=== PATIENT | female | born 1950 | race Caucasian/White ===

== ENCOUNTER → 2016-09-05 | Outpatient (CLI) | payer MEDICARE, OTHER ==
[2016-09-05 07:51] LABS: Basophils % (A) 1 %; CH 31.3; CHCM 31.1; Eosinophils # (A) 0.2 k/uL (0-0.7); Eosinophils % (A) 3 %; HCT 38.7 % (34.0-46.0); HDW 2.49; HGB 12.1 gm/dL (11.4-16.0); Hypochromasia Slight; Luc # (Auto) 0.19; Luc % (Auto) 4; Lymphocytes # (A) 2.4 k/uL (1.0-4.8); Lymphocytes % (A) 45 %; MCH 31.7 pg (25.0-35.0); MCHC 31.4 g/dL (31.0-37.0); MCV 101.2 fL (80.0-100.0); Macrocytosis Slight; Mean Platelet Volume 7.1; Monocytes # (A) 0.4 k/uL (0-1.0); Monocytes % (A) 8 %; Neutrophils # (A) 2.2 k/uL (1.3-7.7); Neutrophils % (A) 40 %; RBC 3.83 m/uL (3.80-5.40); RDW 13.4 % (11.5-15.5); WBC 5.4 k/uL (3.8-10.6)
[2016-09-05 08:05] LABS: Potassium 4.7 mmol/L (3.5-5.1)
== END | disposition home or self-care (01) ==
LOC: LABPAT 07:05
PROVIDERS: ATTEND Orthopaedic Surgery
DX: Z01.818 Encounter for other preprocedural examination (principal)
CPT/HCPCS: 36415; 80051; 85025

== ENCOUNTER 2016-10-02 06:22 | Day surgery (SDC) | payer MEDICARE, OTHER ==
[2016-09-03 10:19] VITALS: BMI 49.6
--- NOTE | 2016-09-07 15:09 | HP ---
DATE OF ADMISSION: CHIEF COMPLAINT: Right shoulder pain. HISTORY OF PRESENT ILLNESS: The patient is a 66-year-old, right-hand dominant female who presents with progressive right shoulder pain for the past 5 months. She is having pain with overhead use and at night. She has tried therapy along with injections with only partial temporary relief. She has also tried medications. She notes it does limit her. PAST MEDICAL HISTORY: Significant for asthma, heart disease, diabetes and arthritis. PAST SURGICAL HISTORY: Significant for lap banding, coronary artery bypass grafting, previous total knee arthroplasty along with cholecystectomy. CURRENT MEDICATIONS: 1. Advair. 2. Zocor. 3. Aspirin. 4. Lisinopril. 5. [place]. She has allergies to ZYLOPRIM and KEFLEX. FAMILY HISTORY: Significant for cancer. SOCIAL HISTORY: Negative for current tobacco or alcohol use. A 16-point review of systems reviewed and is otherwise noncontributory. On examination, the patient is approximately 5 foot 3, 293 pounds of endomorphic habitus. HEENT exam is nonfocal. Neck is supple. On examination of her right shoulder, she is tender about the anterior subacromial space. She has moderate subacromial crepitus. Active range of motion, forward elevation 150 degrees, external rotation with arm at side 65 degrees, internal rotation to L2. Motor strength is 5-/5 for abduction and external rotation. Lainez, Neer and speed tests are positive. Her distal neurovascular exam otherwise appears intact in the right upper extremity. MRI report for the right shoulder from 07/17/2016 shows a retracted tear involving the supraspinatus tendon along with a superior labral tear and biceps tendinosis. IMPRESSION: 1. Right shoulder symptomatic rotator cuff tear. 2. Right shoulder superior labral tear/biceps tendinosis. 3. Increased body mass index. RECOMMENDATIONS: I talked to the patient at length regarding her treatment options. At this point, she is quite symptomatic despite conservative measures. After thorough discussion, she opts to proceed with surgery. We will plan to proceed with arthroscopic evaluation with probable subacromial decompression, rotator cuff repair, and possible biceps tenotomy. Risks and benefits are discussed at length in layman's terms. We will likely perform that as an outpatient procedure. The patient underwent preoperative medical evaluation by Dr. Curtis.
[~2016-10-02 06:22] MED LIST: DEXAMETHASONE SOD PHOSPHATE 10 MG/ML 1 ML VIAL IV ONE; HYDROmorphone 1 MG/ML 1 ML SYRINGE IVP PRN; LACTATED RINGERS 1,000 ML IV SCH; MIDAZOLAM 2 MG/2 ML VIAL IV PRN; ONDANSETRON 4 MG/2 ML VIAL IVP ONE; Pre Op ABX Message 1 EACH MISC MISCELLANE ONE; SCOPOLAMINE 1.5MG/72HR PATCH TRANSDERM ONE
[2016-10-02] MEDS ORDERED: LACTATED RINGERS 1,000 ML IV SCH (06:40)
[2016-10-02] MEDS ORDERED: HYDROmorphone 1 MG/ML 1 ML SYRINGE IVP PRN (06:40)
[2016-10-02] MEDS ORDERED: ONDANSETRON 4 MG/2 ML VIAL IVP PRN (06:40)
[2016-10-02] MEDS ORDERED: LIDOCAINE 1% 20 ML VIAL (10MG/ML) FOR IV START INTRADERMA PRN (06:40)
[2016-10-02] MEDS ORDERED: FAMOTIDINE 20 MG/2 ML VIAL IV PRN (06:40)
[2016-10-02 06:54] LABS: Glucose,Whole Blood 109 mg/dL (75-99)
[2016-10-02] MEDS ORDERED: MIDAZOLAM 2 MG/2 ML VIAL IV ONE (07:28)
[2016-10-02] MEDS ORDERED: LIDOCAINE 1% INJ 10MG/ML (20 ML MDV) ONE (08:02)
[2016-10-02] MEDS ORDERED: PHENYLEPHRINE-0.9% NACL SYG 1 MG/10 ML SYRINGE ONE (08:02)
[2016-10-02] MEDS ORDERED: PROPOFOL 10 MG/ML 20 ML VIAL IV ONE (08:02)
[2016-10-02] MEDS ORDERED: CLINDAMYCIN 150 MG/ML 6 ML VIAL ONE (08:02)
[2016-10-02] MEDS ORDERED: fentaNYL (PF) 50 MCG/ML 2 ML AMP ONE (08:02)
[2016-10-02] MEDS ORDERED: ROPIVACAINE 5 MG/ML 30 ML VIAL ONE (08:02)
[2016-10-02] MEDS ORDERED: SUCCINYLCHOLINE CHLORIDE VIAL 200 MG/10 ML VIAL IV ONE (08:02)
[2016-10-02] MEDS ORDERED: LIDOCAINE 2%-EPI 1:100,000 20 ML VIAL ONE (08:02)
[2016-10-02] MEDS ORDERED: EPINEPHrine (PF) 1 ML in SODIUM CHLORIDE 0.9% IRRIGATIO 3,000 ML IRRIGATION ONE ×8 (08:30)
[2016-10-02 09:57] VITALS: TEMP 97.1
--- NOTE | 2016-10-02 10:06 | P.OP ---
Date of Procedure: 10/02/16 Preoperative Diagnosis: Right shoulder symptomatic rotator cuff tear Postoperative Diagnosis: 5 cm rotator cuff tear right shoulder/high-grade partial-thickness tear long head of the biceps/superior labral tear Procedure(s) Performed: Right shoulder arthroscopic subacromial decompression/biceps tenotomy/rotator cuff repair/superior labral debridement Implants: Arthrex 6.5 mm swivel lock anchor times one, 5.5 mm swivel lock anchor 1, 4.5 mm swivel anchor 2 Anesthesia: NHIA, regional Surgeon: Rohit Jesus Clinical Investigator #1: Rober Calabrese Estimated Blood Loss (ml): 20 Pathology: none sent Condition: stable Disposition: PACU Indications for Procedure: The patient's a 66-year-old female who presents with progressive right shoulder pain after previous injury despite extensive conservative treatment. A discussion of the risks and benefits of operative intervention versus continued conservative measures was made with patient. She opted to proceed with surgery. Operative risks to include infection, neurovascular injury, development of blood clots, possible tendon rerupture, possible need for subsequent procedures was discussed. Informed consent was obtained. Operative Findings: As below. Description of Procedure: The patient was brought to the operating room, and after induction of general anesthesia was placed in the beachchair position. The bony prominences were appropriately padded. I examined the right shoulder. There is no gross block to passive motion. The right upper extremity was prepped and draped in normal fashion. The bony outlines the acromion, distal clavicle, and coracoid process were outlined with a skin marker. The glenoid joint was inflated with 50 mL of saline utilizing a spinal needle from posterior approach. A posterior portal was made through a 5 mm skin incision 1 cm medial and inferior to the posterior lateral border of the acromion. A blunt trocar was used to easily into the joint. Diagnostic arthroscopy was performed. An anterior portal was made just lateral to the coracoid process entering the joint above the subscapularis tendon. The subscapularis tendon appear to be intact. Anterior labrum was intact. There was a large retracted rotator cuff tear involving the supraspinatus and infraspinatus with retraction just lateral to the glenoid margin. The long head of the biceps showed significant fraying and a high- grade partial-thickness tear involving the intra-articular portion. Was elected to proceed with tenotomy at this point. It was released from the superior labrum and allowed to retract into the bicipital groove. A tear involving the superior labrum was also noted. This was debrided back to stable base with a motorized shaver. The posterior labrum appeared to be intact. Mild to moderate degenerative changes involving glenohumeral joint were noted. The arthroscope was placed into the subacromial space. A lateral portal was made through a 5 mm skin incision 2 cm inferior to the anterior lateral border of the acromion. The soft tissue on the undersurface the acromion was debrided with a motorized shaver and with electrocautery clearly defining the anterior medial and lateral borders. An anterior inferior acromioplasty is performed with a motorized tracy starting anterolateral, then extending this posteriorly, then extending this medially. I was able to convert to a flat acromion. This was verified from the posterior and lateral viewing portals. Attention was then paid towards the rotator cuff. The tissue was mobilized back to the greater tuberosity. A traction suture was placed. The greater tuberosity was lightly decorticated utilizing a motorized tracy. An accessory superior lateral portals made through a 4 mm skin incision just off the lateral edge of the acromion for anchor placement. 2 anchors was then placed just off the articular surface the appropriate starting awl. The fiber tape was then passed through the rotator cuff utilizing a scorpion suture passer. A lateral row was created crisscrossing the sutures. I had to place a 6.5 mm swivel lock anchor anteriorly as the bone quality did not allow for secure placement of the 5.5 mm anchor. A 5.5 mm anchor was placed posteriorly. Final arthroscopic view showed adequate muslim of the majority of the rotator cuff to the greater tuberosity. The portals were closed with simple 3-0 nylon suture. A sterile dressing was applied in addition to an abductor brace. The patient was awoken from general anesthesia and transferred to recovery room in good condition. Blood loss was estimated 20 mL. No complications were incurred. Sponge and needle counts were correct at the end of the case
[2016-10-02 10:13] LABS: Glucose,Whole Blood 162 mg/dL (75-99)
[2016-10-02] MEDS ORDERED: LACTATED RINGERS 1,000 ML IV ONE (10:33)
[2016-10-02 11:23] VITALS: RESP 20
[2016-10-02 12:11] VITALS: BP 162/77; PULSE 50
== END 2016-10-02 12:14 | disposition home or self-care (01) ==
LOC: OR 06:22
PROVIDERS: ATTEND Orthopaedic Surgery
DX: M75.101 Unspecified rotator cuff tear or rupture of right shoulder, not specified as traumatic (principal); S46.111A Strain of muscle, fascia and tendon of long head of biceps, right arm, initial encounter; X58.XXXA Exposure to other specified factors, initial encounter; I25.10 Atherosclerotic heart disease of native coronary artery without angina pectoris; I10 Essential (primary) hypertension; E78.5 Hyperlipidemia, unspecified; J45.909 Unspecified asthma, uncomplicated; E11.9 Type 2 diabetes mellitus without complications; Z79.84 Long term (current) use of oral hypoglycemic drugs; E07.9 Disorder of thyroid, unspecified; E66.01 Morbid (severe) obesity due to excess calories; Z68.42 Body mass index [BMI] 45.0-49.9, adult; Z95.1 Presence of aortocoronary bypass graft; Z79.899 Other long term (current) drug therapy; Z88.1 Allergy status to other antibiotic agents; Z88.8 Allergy status to other drugs, medicaments and biological substances
CPT/HCPCS: 64415; 29826; 29827; C1713 ×4; J2250; J0330; J2405; J0171; J2001; J3010; J2795; J2370; J2704

== ENCOUNTER 2016-10-14 19:29 | Emergency (ER) | payer MEDICARE, OTHER ==
[2016-10-14] MEDS ORDERED: HYDROmorphone 1 MG/ML 1 ML SYRINGE IM STA (20:24)
--- NOTE | 2016-10-14 20:26 | ED ---
General Adult HPI - General Chief complaint: Extremity Injury, Upper Stated complaint: post op shoulder surgery pain 10/02/16 Time Seen by Provider: 10/14/16 20:13 Source: patient, RN notes reviewed Mode of arrival: ambulatory Limitations: no limitations - History of Present Illness Initial comments: Is a 66-year-old female presents with right shoulder pain after shoulder surgery on 10/02/2016. Patient states she ran out of her pain medications today that were prescribed by her surgeon. Patient states she called her surgeon, Dr. Barrera, who told her to come to the ER for a shot of pain medication and he will refill her pain medication prescription tomorrow. Patient has only taken Tylenol today for the pain. Patient denies any new injury to the right shoulder. Patient denies any numbness/weakness or tingling. Patient denies any recent fever, chills, shortness breath, chest pain , abdominal pain, nausea/vomiting/diarrhea, back pain, hematuria, headache, or visual changes, or any other complaints. - Related Data Home Medications Medication Instructions Recorded Confirmed Albuterol Sulfate [Proair Hfa] 1 puff INHALATION BID PRN 03/21/14 10/14/16 Carvedilol [Coreg] 3.125 mg PO BID 03/21/14 10/14/16 Fluticasone/Salmeterol [Advair 1 puff INHALATION BID PRN 03/21/14 10/14/16 250-50 Diskus] Lisinopril [Zestril] 5 mg PO HS 03/21/14 10/14/16 Simvastatin [Zocor] 80 mg PO HS 03/21/14 10/14/16 Zafirlukast [Accolate] 20 mg PO BID 03/21/14 10/14/16 Ergocalciferol [Vitamin D2 50,000 unit PO QMONTH 10/09/14 10/14/16 (DRISDOL)] Levothyroxine Sodium [Synthroid] 150 mcg PO DAILY 10/09/14 10/14/16 Aspirin 81 mg PO DAILY 08/06/15 10/14/16 Glimepiride [Amaryl] 1 mg PO AC-BRKFST 10/08/15 10/14/16 Diphenoxylate HCl/Atropine 2 tab PO QID PRN 03/30/16 10/14/16 [Lomotil] HYDROcodone/APAP 7.5-325MG [[place] 1 - 2 each PO QID PRN 09/03/16 10/14/16 7.5-325] Previous Rx's Medication Instructions Recorded Meclizine [Antivert] 25 mg PO QID PRN #0 tab 12/07/14 traMADol HCl [Ultram] 50 mg PO Q6H PRN #40 tab 10/02/16 Allergies Allergy/AdvReac Type Severity Reaction Status Date / Time allopurinol Allergy Itching Verified 10/14/16 20:31 cephalexin monohydrate Allergy Itching Verified 10/14/16 20:31 [From Keflex] clindamycin Allergy Itching Verified 10/14/16 20:31 NSAIDS (Non-Steroidal AdvReac Unknown STATES NO Verified 10/14/16 20:31 Anti-Inflamma NSAIDS DUE TO GASTRIC BYPASS Review of Systems ROS Statement: Those systems with pertinent positive or pertinent negative responses have been documented in the HPI. ROS Other: All systems not noted in ROS Statement are negative. Past Medical History Past Medical History: Asthma, Diabetes Mellitus, Hearing Disorder / Deafness, Hyperlipidemia, Hypertension, Musculoskeletal Disorder, Osteoarthritis (OA), Skin Disorder, Sleep Apnea/CPAP/BIPAP, Thyroid Disorder Additional Past Medical History / Comment(s): VERTIGO, PSORIASIS, HAS C-PAP BUT CURRENTLY NOT USING DUE TO EAR SURGERY., , , USES CANE OR WALKER PRN. , STATES RIGHT EAR SURGERY 08/18/16., DIFFICULTY HEARING KRISTOPHER. History of Any Multi-Drug Resistant Organisms: None Reported Past Surgical History: Bariatric Surgery, Cholecystectomy, Coronary Bypass/CABG , Heart Catheterization, Hernia Repair, Joint Replacement, Orthopedic Surgery, Tubal Ligation Additional Past Surgical History / Comment(s): KNEE ARTHROSCOPY,CABG (1992), LAP BAND AND REMOVAL. GASTRIC BYPASS 2012, UMBILICAL HERNIA REPAIR, LEFT SHOULDER SURG, KRISTOPHER CARPAL TUNNEL. KRISTOPHER EAR SURG WITH TUBES, TOTAL LEFT KNEE, RIGHT EAR SURG (08/18/16) Past Anesthesia/Blood Transfusion Reactions: Motion Sickness Additional Past Anesthesia/Blood Transfusion Reaction / Comment(s): VERTIGO Past Psychological History: No Psychological Hx Reported Smoking Status: Former smoker Past Alcohol Use History: None Reported Additional Past Alcohol Use History / Comment(s): quit smoking 1992, smoked 1 PPD x 22 yrs. Past Drug Use History: None Reported - Past Family History Sister(s) Family Medical History: Cancer Additional Family Medical History / Comment(s): LUNG CA General Exam - General Exam Comments Initial Comments: General: The patient is awake and alert, in no distress, and does not appear acutely ill. Neck: The neck is supple, there is no tenderness or JVD. Cardiovascular: There is a regular rate and rhythm. No murmur, rub or gallop is appreciated. Respiratory: Lungs are clear to auscultation, respirations are non-labored, breath sounds are equal. No wheezes, stridor, rales, or rhonchi. Musculoskeletal: Patient has her right arm in a brace with surgical sutures in place. No sign of joint effusion. Faint ecchymosis to the anterior shoulder. Sensation intact. Radial pulses are 2+ bilaterally. Capillary refill is normal at less than 2 seconds. Neurological: A&O x 3. CN II-XII intact, There are no obvious motor or sensory deficits. Coordination appears grossly intact. Speech is normal. Skin: Skin is warm and dry and no rashes or lesions are noted. Psychiatric: Normal mood and affect. Limitations: no limitations Course Vital Signs 10/14/16 19:56 Temperature 97.9 F Pulse Rate 89 Respiratory 20 Rate Blood Pressure 117/61 O2 Sat by Pulse 96 Oximetry Medical Decision Making - Medical Decision Making This is a 66-year-old female presents with shoulder pain after running out of her pain medications. Patient had shoulder surgery on 10/02/2016. On physical exam Patient has her right arm in a brace with surgical sutures in place. No sign of joint effusion. Faint ecchymosis to the anterior shoulder. Sensation intact. Radial pulses are 2+ bilaterally. Capillary refill is normal at less than 2 seconds. Patient was told directly by her doctor who she called today to come in to the EC for pain shot and he will refill her pain medication prescription tomorrow. Patient was given a shot of Dilaudid in the EC today. I discussed return parameters. Discussed that patient should follow up with PCP in one to 2 days or return to the [facility] for any worsening symptoms or for any further concerns. Patient was receptive to this plan and patient will be discharged home. Disposition Clinical Impression: Shoulder pain, right, History of repair of rotator cuff Disposition: HOME SELF-CARE Condition: Good Instructions: Shoulder Pain (ED) Additional Instructions: Please follow-up with your surgeon tomorrow. Please follow-up with family doctor in the next 2 days of symptoms have not improved. Please return to emergency room if the symptoms increase or worsen or for any other concerns. Referrals: Teofilo Curtis MD [Primary Care Provider] - 1-2 days Time of Disposition: 20:30
[2016-10-14 20:54] VITALS: BP 139/79; PULSE 92; RESP 18; TEMP 98.4
== END 2016-10-14 20:54 | disposition home or self-care (01) ==
LOC: EC 19:29
DX: M25.511 Pain in right shoulder (principal); G89.18 Other acute postprocedural pain; J45.909 Unspecified asthma, uncomplicated; E11.9 Type 2 diabetes mellitus without complications; H91.90 Unspecified hearing loss, unspecified ear; E78.5 Hyperlipidemia, unspecified; I10 Essential (primary) hypertension; M19.90 Unspecified osteoarthritis, unspecified site; E07.9 Disorder of thyroid, unspecified; G47.30 Sleep apnea, unspecified; Z87.891 Personal history of nicotine dependence; Z79.82 Long term (current) use of aspirin; Z79.52 Long term (current) use of systemic steroids; Z79.899 Other long term (current) drug therapy; Z88.1 Allergy status to other antibiotic agents; Z88.6 Allergy status to analgesic agent; Z88.8 Allergy status to other drugs, medicaments and biological substances
CPT/HCPCS: 99283; 96372; J1170

== ENCOUNTER 2017-01-13 06:38 | Day surgery (SDC) | payer MEDICARE, OTHER ==
[2016-12-18 08:43] VITALS: BMI 46.4
[~2017-01-13 06:38] MED LIST changes: -DEXAMETHASONE SOD PHOSPHATE 10 MG/ML 1 ML VIAL IV ONE; -HYDROmorphone 1 MG/ML 1 ML SYRINGE IVP PRN; +LIDOCAINE 1% 20 ML VIAL (10MG/ML) FOR IV START INTRADERMA PRN; -MIDAZOLAM 2 MG/2 ML VIAL IV PRN; -ONDANSETRON 4 MG/2 ML VIAL IVP ONE; -Pre Op ABX Message 1 EACH MISC MISCELLANE ONE; -SCOPOLAMINE 1.5MG/72HR PATCH TRANSDERM ONE
[2017-01-13 07:03] VITALS: TEMP 97.1
[2017-01-13 07:21] LABS: Glucose,Whole Blood 118 mg/dL (75-99)
[2017-01-13] MEDS ORDERED: PROPOFOL 10 MG/ML 20 ML VIAL IV ONE (07:43)
[2017-01-13] MEDS ORDERED: GLUCAGON 1 MG/ML VIAL ONE (07:43)
[2017-01-13] MEDS ORDERED: LIDOCAINE 1% INJ 10MG/ML (20 ML MDV) ONE (07:43)
--- NOTE | 2017-01-13 07:48 | P.GSHP ---
History of Present Illness H&P Date: 01/13/17 Chief Complaint: Screening colonoscopy This is a 66-year-old female who presents today for colonoscopy. Patient had her last colonoscopy proximal to 5 years ago. Patient had benign adenomatous polyps at that time. - Constitutional Constitutional: Reports as per HPI Past Medical History Past Medical History: Asthma, Diabetes Mellitus, Hearing Disorder / Deafness, Hyperlipidemia, Hypertension, Musculoskeletal Disorder, Osteoarthritis (OA), Skin Disorder, Sleep Apnea/CPAP/BIPAP, Thyroid Disorder Additional Past Medical History / Comment(s): VERTIGO, PSORIASIS, HAS C-PAP BUT CURRENTLY NOT USING DUE TO EAR SURGERY, USES CANE OR WALKER PRN., occult stool test positive History of Any Multi-Drug Resistant Organisms: None Reported Past Surgical History: Bariatric Surgery, Cholecystectomy, Coronary Bypass/CABG , Heart Catheterization, Hernia Repair, Joint Replacement, Orthopedic Surgery, Tubal Ligation Additional Past Surgical History / Comment(s): KNEE ARTHROSCOPY,CABG (1992), LAP BAND AND REMOVAL. GASTRIC BYPASS 2012, UMBILICAL HERNIA REPAIR, KRISTOPHER. SHOULDER SURG, KRISTOPHER CARPAL TUNNEL. KRISTOPHER EAR SURG WITH TUBES, TOTAL LEFT KNEE, RIGHT EAR SURG Past Anesthesia/Blood Transfusion Reactions: Motion Sickness Additional Past Anesthesia/Blood Transfusion Reaction / Comment(s): VERTIGO Past Psychological History: No Psychological Hx Reported Smoking Status: Former smoker Past Alcohol Use History: None Reported Additional Past Alcohol Use History / Comment(s): quit smoking 1992, smoked 1 PPD x 22 yrs. Past Drug Use History: None Reported - Past Family History Sister(s) Family Medical History: Cancer Additional Family Medical History / Comment(s): LUNG CA Medications and Allergies Home Medications Medication Instructions Recorded Confirmed Type Carvedilol [Coreg] 3.125 mg PO BID 03/21/14 01/13/17 History Fluticasone/Salmeterol [Advair 1 puff INHALATION RT-BID PRN 03/21/14 01/13/17 History 250-50 Diskus] Lisinopril [Zestril] 5 mg PO HS 03/21/14 01/13/17 History Simvastatin [Zocor] 80 mg PO HS 03/21/14 01/13/17 History Zafirlukast [Accolate] 20 mg PO BID 03/21/14 01/13/17 History Ergocalciferol [Vitamin D2 50,000 unit PO QMONTH 10/09/14 01/13/17 History (DRISDOL)] Levothyroxine Sodium [Synthroid] 150 mcg PO DAILY 10/09/14 01/13/17 History Aspirin 81 mg PO DAILY 08/06/15 01/13/17 History Glimepiride [Amaryl] 1 mg PO AC-BRKFST 10/08/15 01/13/17 History Diphenoxylate HCl/Atropine 2 tab PO QID PRN 03/30/16 01/13/17 History [Lomotil] HYDROcodone/APAP 7.5-325MG [[place] 1 - 2 tab PO QID PRN 09/03/16 01/13/17 History 7.5-325] Calcium Carbonate [Calcium] 600 mg PO DAILY 01/07/17 01/13/17 History Cyanocobalamin (Vitamin B-12) 1,000 mcg PO MOWEFR 01/07/17 01/13/17 History [Vitamin B-12] Allergies Allergy/AdvReac Type Severity Reaction Status Date / Time allopurinol Allergy Itching Verified 01/07/17 14:43 cephalexin monohydrate Allergy Itching Verified 01/07/17 14:43 [From Keflex] clindamycin Allergy Itching Verified 01/07/17 14:43 NSAIDS (Non-Steroidal AdvReac Unknown STATES NO Verified 01/07/17 14:43 Anti-Inflamma NSAIDS DUE TO GASTRIC BYPASS Surgical - Exam Vital Signs Temp Pulse Resp BP Pulse Ox 97.1 F L 72 14 147/82 96 01/13/17 07:01 01/13/17 07:01 01/13/17 07:01 01/13/17 07:01 01/13/17 07:01 - General well developed, no distress - Eyes PERRL - ENT normal pinna - Neck no masses - Respiratory normal expansion - Cardiovascular Rhythm: regular - Abdomen Abdomen: soft, non tender Results - Labs Abnormal Lab Results - Last 24 Hours (Table) 01/13/17 Range/Units 07:16 POC Glucose (mg/dL) 118 H (75-99) mg/dL Assessment and Plan Plan: History of colon polyps. We'll perform colonoscopy.
--- NOTE | 2017-01-13 08:22 | P.OP ---
Date of Procedure: 01/13/17 Preoperative Diagnosis: Colon polyps Postoperative Diagnosis: Diverticulosis Left colon polyp Procedure(s) Performed: colonoscopy Implants: Anesthesia: MAC Surgeon: Mannie Tanner Pathology: other (Left colon polyp) Condition: stable Disposition: PACU Indications for Procedure: Operative Findings: Description of Procedure: The patient's placed on the endoscopy table in the lateral position. She received IV sedation. Digital rectal exam was performed which revealed external hemorrhoids. The flexible colonoscope was then placed patient anus passed throughout the entire colon. The ileocecal valve was visualized. The cecum, ascending and transverse colon appeared normal. The descending colon there is diverticular changes. There is also a polyp seen in the left colon was removed the forcep. Scope summer back and the sigmoid colon there is more extensive diverticular changes seen. Scope was then brought back into the rectum and this appeared normal. Scope was withdrawn for patient.
[2017-01-13 08:53] VITALS: BP 127/64; PULSE 64; RESP 20
== END 2017-01-13 09:00 | disposition home or self-care (01) ==
LOC: ORWHC2ENDO 06:38
PROVIDERS: ATTEND Surgery
DX: Z12.11 Encounter for screening for malignant neoplasm of colon (principal); K63.5 Polyp of colon; K57.30 Diverticulosis of large intestine without perforation or abscess without bleeding; Z86.010 Personal history of colon polyps; Z98.84 Bariatric surgery status; Z87.891 Personal history of nicotine dependence; E11.9 Type 2 diabetes mellitus without complications; Z79.84 Long term (current) use of oral hypoglycemic drugs; Z95.1 Presence of aortocoronary bypass graft; I10 Essential (primary) hypertension; E78.5 Hyperlipidemia, unspecified; J45.909 Unspecified asthma, uncomplicated; G47.30 Sleep apnea, unspecified; E07.9 Disorder of thyroid, unspecified; M19.90 Unspecified osteoarthritis, unspecified site; Z79.82 Long term (current) use of aspirin; Z79.899 Other long term (current) drug therapy; Z88.1 Allergy status to other antibiotic agents; Z88.8 Allergy status to other drugs, medicaments and biological substances
CPT/HCPCS: 88305; 45380; J1610; J2001; J2704

== ENCOUNTER → 2017-07-12 | Outpatient (CLI) | payer MEDICARE, OTHER ==
--- NOTE | 2017-07-12 19:48 | MR ---
EXAMINATION TYPE: MR shoulder RT wo con DATE OF EXAM: 07/12/2017 COMPARISON: NONE HISTORY: Pain in right shoulder TECHNIQUE: Multiplanar, multisequence imaging of the right shoulder is performed without contrast. FINDINGS: Rotator Cuff: There is evidence suggestive of previous surgery. There is a complete through thickness tear of the supraspinatus tendon with retraction the level of the AC joint. Subscapularis tendon appears to be intact. Intrasubstance type signal at the insertion suggests parti al intrasubstance tear but no retraction or full-thickness tear. Infraspinatus tendon demonstrates near complete through thickness partial tear. Note is made there is atrophy of the supraspinatus and infraspinatus muscles with the most marked clarisse nges seen involving the supraspinatus muscle which demonstrates significant atrophic changes. Acromioclavicular Joint: Arthropathy noted with severe narrowing. Glenohumeral Joint: There is a small joint effusion. Inferior glenohumeral ligament intact. There is considerable narrowing of the joint space with mild hypertrophic changes of the humeral head compatib le significant arthritic changes. Labrum: Labral assessment is limited due to motion artifact but grossly appear intact. Biceps Tendon: The long head of biceps is in normal location within bicipital groove. However, there is lack of visualization of the intracapsular portion of the biceps tendon. This is suspicious for in tracapsular tear. Bone marrow signal: No focal abnormal marrow signal is appreciated. IMPRESSION: 1. Complete through thickness tear of the supraspinatus tendon retraction to the proximal level of th e AC joint. Significant muscular atrophy noted. 2. Partial through thickness tear infraspinatus tendon with no definite retraction. Muscular atrophy noted. 3. Joint effusion with findings suggestive of arthritic changes involving the glenohumeral joint. 4. Impingement secondary to hypertrophic change of the AC joint 5. Subscapularis intrasubstance partial tear at its insertion. 6. Nonvisualization of the intracapsular portion of the biceps tendon. This is suspicious for biceps tendon tear.
== END | disposition home or self-care (01) ==
LOC: RADMRIMAIN 10:07
PROVIDERS: ATTEND Orthopaedic Surgery
DX: M75.121 Complete rotator cuff tear or rupture of right shoulder, not specified as traumatic (principal); M25.811 Other specified joint disorders, right shoulder; M25.411 Effusion, right shoulder

== ENCOUNTER → 2017-08-19 | Outpatient (CLI) | payer MEDICARE, OTHER ==
[2017-08-19 11:21] LABS: Basophils % (A) 1 %; Eosinophils # (A) 0.2 k/uL (0-0.7); Eosinophils % (A) 4 %; HCT 41.1 % (34.0-46.0); HGB 12.6 gm/dL (11.4-16.0); Lymphocytes # (A) 1.6 k/uL (1.0-4.8); Lymphocytes % (A) 27 %; MCH 31.4 pg (25.0-35.0); MCHC 30.6 g/dL (31.0-37.0); MCV 102.7 fL (80.0-100.0); Macrocytosis Slight; Mean Platelet Volume 7.3; Monocytes # (A) 0.5 k/uL (0-1.0); Monocytes % (A) 8 %; Neutrophils # (A) 3.3 k/uL (1.3-7.7); Neutrophils % (A) 58 %; Platelet Count 294 k/uL (150-450); RDW 14.2 % (11.5-15.5); WBC 5.8 k/uL (3.8-10.6)
[2017-08-19 11:34] LABS: Partial Thromboplastin Time 22.7 sec (22.0-30.0); Prothrombin Time 9.7 sec (9.0-12.0)
== END ==
LOC: LABPAT 10:53
PROVIDERS: ATTEND Orthopaedic Surgery
DX: Z01.818 Encounter for other preprocedural examination (principal); M12.811 Other specific arthropathies, not elsewhere classified, right shoulder
CPT/HCPCS: 36415; 80051; 85025; 85610; 85730

== ENCOUNTER 2017-08-24 10:41 | Inpatient (IN) | payer MEDICARE, OTHER ==
[2017-08-13 11:32] VITALS: BMI 46.4
--- NOTE | 2017-08-23 13:46 | HP ---
HISTORY AND PHYSICAL CHIEF COMPLAINT: Right shoulder pain. 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 It has worsened recently. She had a rotator cuff repair performed in September of 2016. She notes increasing pain with overhead use and at night. She notes she is severely limited because of pain at this point. PAST MEDICAL HISTORY: Significant for type 2 diabetes, coronary artery disease, arthritis, hyperlipidemia, and asthma. PAST SURGICAL HISTORY: Significant for lap banding, total knee arthroplasty, gallbladder removal, previous right arthroscopic rotator cuff repair. In addition to previous coronary artery bypass grafting. CURRENT MEDICATIONS: Advair, Zocor, aspirin, lisinopril, glimepiride, levothyroxine and meclizine along with [place]. ALLERGIES: ALLERGIES TO KEFLEX AND ZYLOPRIM. FAMILY HISTORY: Significant for cancer. SOCIAL HISTORY: Negative for current tobacco or alcohol use. REVIEW OF SYSTEMS: Sixteen point review of systems otherwise reviewed and is noncontributory. PHYSICAL EXAMINATION: On examination, the patient is approximately 5 foot 3, 262 pounds of endomorphic habitus. HEENT exam is nonfocal. Neck is supple. On examination of her right shoulder, active range of motion, forward elevation 130 degrees, external rotation with arm at side 30 degrees. Internal rotation is to L1. Motor strength is 4- over 5 for external rotation and abduction. Lainez, Neer tests are positive. Her distal neurovascular exam otherwise appears intact in the right upper extremity. MRI report from 07/12/2017 of the right shoulder shows a re-tear of the supraspinatus tendon and infraspinatus with significant retraction. Rotator cuff arthropathy is present. IMPRESSION: 1. Right rotator cuff arthropathy. 2. Increased body mass index. 3. History of coronary artery disease status post bypass grafting. 4. [id number] diabetes. RECOMMENDATIONS: I talked to the patient at length regarding her condition and treatment options. At this point, she is quite symptomatic despite conservative measures. After thorough discussion, she opts to proceed with surgery. We will plan to proceed with right reverse total shoulder arthroplasty. Risks and benefits were discussed at length in layman's terms. MMODL / IJN: [id number] /
[~2017-08-24 10:41] MED LIST changes: +ACETAMINOPHEN TAB 500 MG TAB PO ONE; +DEXAMETHASONE SOD PHOSPHATE 10 MG/ML 1 ML VIAL IV ONE; -LACTATED RINGERS 1,000 ML IV SCH; +MELOXICAM 7.5 MG TAB PO ONE; +ONDANSETRON 4 MG/2 ML VIAL IVP ONE; +SCOPOLAMINE 1.5MG/72HR PATCH TRANSDERM ONE; +TRANEXAMIC ACID 1,000 MG in SODIUM CHLORIDE 0.9% 50 ML IVPB ONE; +ceFAZolin IN SWFI 2 GM/20 ML SYRINGE IVP ONE
[2017-08-24] MEDS: LACTATED RINGERS 1,000 ML IV SCH (11:47)
[2017-08-24 11:51] LABS: Glucose,Whole Blood 110 mg/dL (75-99)
[2017-08-24] MEDS: MIDAZOLAM 2 MG/2 ML VIAL IV PRN ×2 (12:08→12:14)
[2017-08-24] MEDS ORDERED: ROPIVACAINE 5 MG/ML 30 ML VIAL ONE (13:40)
[2017-08-24] MEDS ORDERED: LIDOCAINE 1% INJ 10MG/ML (20 ML MDV) ONE (13:40)
[2017-08-24] MEDS ORDERED: PHENYLEPHRINE-0.9% NACL SYG 1 MG/10 ML SYRINGE ONE (13:40)
[2017-08-24] MEDS ORDERED: MIDAZOLAM 2 MG/2 ML VIAL ONE (13:40)
[2017-08-24] MEDS ORDERED: PROPOFOL 10 MG/ML 20 ML VIAL IV ONE (13:40)
[2017-08-24] MEDS ORDERED: GLYCOPYRROLATE 0.2 MG/ML 2 ML VIAL ONE (13:40)
[2017-08-24] MEDS ORDERED: LIDOCAINE 2%-EPI 1:100,000 20 ML VIAL ONE (13:40)
[2017-08-24] MEDS ORDERED: SUCCINYLCHOLINE CHLORIDE 100 MG/5 ML SYR IV ONE (13:40)
[2017-08-24] MEDS ORDERED: ePHEDrine SULFATE/0.9% NACL/PF 50 MG/5 ML SYRINGE IV ONE (13:40)
[2017-08-24] MEDS ORDERED: ceFAZolin 1,000 MG in SODIUM CHLORIDE 0.9% 1,000 ML IRRIGATION ONE (14:26)
[2017-08-24] MEDS ORDERED: LACTATED RINGERS 1,000 ML IV ONE (15:12)
[2017-08-24] MEDS ORDERED: HYDROmorphone 2 MG/ML 1 ML SYRINGE IVP PRN ×2 (15:48)
[2017-08-24] MEDS ORDERED: ONDANSETRON 4 MG/2 ML VIAL IVP PRN (15:48)
[2017-08-24] MEDS ORDERED: SENNOSIDES-DOCUSATE SODIUM 1 EACH TAB PO PRN (15:48)
[2017-08-24] MEDS ORDERED: HYDROcodone/APAP 7.5-325MG 1 EACH TAB PO PRN (15:50)
--- NOTE | 2017-08-24 16:16 | P.OP ---
Date of Procedure: 08/24/17 Preoperative Diagnosis: Right shoulder rotator cuff arthropathy Postoperative Diagnosis: Same Procedure(s) Performed: Right reverse total shoulder arthroplasty Implants: Depuy Xtend size 10/#1 epiphysis press-fit humeral stem, 38 mm +12 articular surface, 38 mm standard glenosphere with standard base plate. Anesthesia: rosey [place] Surgeon: Rohit Jesus Inner Diameter Grinder Tool #1: Rober Calabrese Estimated Blood Loss (ml): 250 Pathology: other (Humeral head) Condition: stable Disposition: PACU Indications for Procedure: The patient is a 67-year-old female who presents with progressive right shoulder pain and weakness secondary to chronic recurrent rotator cuff tear/ arthropathy. A discussion of the risks and benefits of operative intervention versus continued conservative measures was made with the patient. She opted to proceed with surgery. Operative risks to include infection, neurovascular injury, development of blood clots, possible dislocation, possible fracture and need for subsequent procedures was discussed. Informed consent was obtained. Operative Findings: Chronic retracted rotator cuff tear with significant arthropathy Description of Procedure: The patient was brought to the operating room, and after induction of general anesthesia was placed in a beachchair position. The bony prominences were appropriately padded. The right upper extremity was prepped and draped in normal fashion. A deltopectoral incision was made just lateral to the coracoid process extending approximately 12 cm. The skin was incised sharply. Subcutaneous tissues were divided bluntly. Electrocautery was used for hemostasis. The deltopectoral interval was identified and the cephalic vein gently retracted laterally with the deltoid. Subdeltoid adhesions were bluntly dissected. The upper one third of the pectoralis major was released to help facilitate exposure. The clavipectoral fascia was opened and the conjoined tendon gently retracted medially. A large retracted rotator cuff tear was then evident. There was a large effusion. The upper portion of the pectoralis tendon was released from the lesser tuberosity with electrocautery to help facilitate exposure. This was tagged with #2 Ethibond suture. The humeral head was then dislocated. A starting hole was made in line with the humeral shaft and the bicipital groove. The canal was then reamed by hand up to a size 10. There is good distal fit and shatter. The cutting guide was placed planning on 20 of retroversion. The humeral head cut was then made and then the humeral head removed. The inferior medial osteophytes were carefully removed flush with the [place] bone. Attention was then paid towards preparing the glenoid. Retractors were placed anterior and posteriorly. Labral tissue was debrided from a 12:00 to 6 o'clock position anteriorly. The inferior labrum was elevated exposing the inferior glenoid. There was good glenoid exposure at this point. The alignment guide was then placed on the inferior aspect of the glenoid planning on slight inferior tilt. The threaded guidepin was then inserted. The glenoid was then reamed down to a bleeding bony surface with a reamer. The central peg hole was drilled. There was good bone stock. The standard base plate was then inserted and impacted. The inferior, superior , and posterior drill holes were then made with the appropriate locking screws placed. Good purchase was obtained. These were locked in place. A standard 38 mm glenosphere was inserted over guidewire and was fully seated. Attention was then paid towards preparing the proximal humerus. The appropriate broach was inserted in 20 of retroversion and was fully seated. The size 1 epiphyseal reamer was utilized. A trial size 10 humeral stem with a size 1 epiphysis was inserted in the same orientation. Trial reduction was obtained with a +12 articular surface. I felt I had adequate muslim of soft tissue tension judging off the conjoined tendon in addition it was stable in flexion and extension with internal and external rotation. The shoulder was gently dislocated. The trial components were removed. The final humeral stem was assembled and inserted in 20 of retroversion. This was fully seated. The +12 articular surface was gently impacted. The shoulder was gently reduced. It was again taken through range of motion and felt to be stable in flexion and extension with internal and external rotation. Again I felt there was adequate muslim of soft tissue tension. Pulsatile lavage was utilized. The subscapularis was repaired with #2 Ethibond suture. The deltopectoral interval was closed with interrupted 2-0 Vicryl sutures. The skin subcu change tissues were reapproximated with interrupted 2-0 Vicryl sutures. The skin was reapproximated with 3-0 subcuticular Prolene suture. Steri-Strips were applied. A sterile dressing was applied in addition to a sling. The patient was awoken from general anesthesia and transferred to recovery room in good condition. Blood loss was estimated at 250 mL. No complications were incurred. Sponge and needle counts were correct at the end the case.
[2017-08-24 16:23] LABS: Glucose,Whole Blood 141 mg/dL (75-99)
--- NOTE | 2017-08-24 16:26 | XR ---
Limited right shoulder HISTORY: Status post right shoulder arthroplasty Single frontal view of the right shoulder Patient is status post total right shoulder reverse arthroplasty. There is anatomic alignment. Lucenc y soft tissues is compatible with postop state. There are overlying leads and tubing. Arthropathy not ed at the acromioclavicular joint. Bone mineralization is reduced. IMPRESSION: Orthopedic follow-up.
[2017-08-24] MEDS: HYDROmorphone 0.5 MG/0.5 ML SYRINGE IVP PRN ×3 (16:29→16:53)
[2017-08-24] MEDS ORDERED: DIAZEPAM 2 MG TAB PO PRN (17:15)
[2017-08-24] MEDS ORDERED: DIPHENOX-ATROP 2.5-0.025 MG 1 EACH TAB PO PRN (17:15)
[2017-08-24] MEDS ORDERED: MECLIZINE 25 MG TAB PO PRN (17:15)
[2017-08-24] MEDS: traMADol 50 MG TAB PO SCH ×2 (18:08→22:35)
--- NOTE | 2017-08-24 19:02 | P.ONQ ---
Anesthesiology Proc Note - PNB - Peripheral Nerve Block Performed Right Interscalene Indication: Acute Post-Operative Pain, Requested by physician (Dr Jesus) Sedation Type: Sedate with meaningful contact maintained Preparation: Sterile Prep Position: Supine Catheter: None Needle Types: Other (see comment) (Yvon) Needle Size: 50mm (2") Needle Gauge: 20 Technique: Ultrasound Injectate: 0.5% Ropivacaine (see comment for volume) (0.5% Ropivivacaine 12cc, Lidocaine 1% 12cc with 1:100,00 epi) Blood Aspirated: No Pain Paresthesia on Injection Noted: No Resistance on Injection: Normal Events: Uneventful and Well Tolerated
[2017-08-24] MEDS: CARVEDILOL 3.125 MG TAB PO SCH (20:00)
[2017-08-24] MEDS: ATORVASTATIN 40 MG TAB PO SCH (20:00)
[2017-08-24] MEDS: MONTELUKAST 10 MG TAB PO SCH (20:01)
[2017-08-24] MEDS: LISINOPRIL 5 MG TAB PO SCH (20:01)
[2017-08-24] MEDS: ceFAZolin IN SWFI 2 GM/20 ML SYRINGE IVP SCH (22:36)
[2017-08-25] MEDS: HYDROcodone/APAP 7.5-325MG 1 EACH TAB PO PRN ×4 (00:51→17:56)
[2017-08-25 05:37] LABS: Basophils % (A) 0 %; Eosinophils # (A) 0.1 k/uL (0-0.7); Eosinophils % (A) 1 %; HCT 32.1 % (34.0-46.0); HGB 10.3 gm/dL (11.4-16.0); Lymphocytes % (A) 19 %; MCH 31.3 pg (25.0-35.0); MCV 97.8 fL (80.0-100.0); Mean Platelet Volume 7.4; Monocytes # (A) 0.7 k/uL (0-1.0); Monocytes % (A) 7 %; Neutrophils # (A) 7.5 k/uL (1.3-7.7); Neutrophils % (A) 72 %; Platelet Count 304 k/uL (150-450); RBC 3.28 m/uL (3.80-5.40); RDW 12.9 % (11.5-15.5); WBC 10.4 k/uL (3.8-10.6)
[2017-08-25] MEDS: LEVOTHYROXINE 75 MCG TAB PO SCH (05:52)
[2017-08-25] MEDS: ceFAZolin IN SWFI 2 GM/20 ML SYRINGE IVP SCH (05:52)
[2017-08-25] MEDS: traMADol 50 MG TAB PO SCH ×4 (08:42→22:57)
[2017-08-25] MEDS: SYMBICORT 80-4.5 MCG INHALER INHALATION PRN ×2 (08:42→21:02)
[2017-08-25] MEDS: MULTIVITAMINS, THERA 1 EACH TAB PO SCH (08:43)
[2017-08-25] MEDS: GLIMEPIRIDE 1 MG TAB PO SCH (08:43)
[2017-08-25] MEDS: CARVEDILOL 3.125 MG TAB PO SCH ×2 (08:43→17:56)
[2017-08-25 09:31] VITALS: RESP 16
[2017-08-25] MEDS: LACTATED RINGERS 1,000 ML IV SCH (09:57)
--- NOTE | 2017-08-25 10:06 | CONS ---
CONSULTATION CHIEF COMPLAINT: A 67-year-old white female status post right rotator cuff tendonitis and repair for medical management consult. No chest pain. Positive shortness of breath. Due to increased pain in the right shoulder, she had a right rotator cuff replacement. She is having no chest pain or shortness of breath. She had recent nose surgery for nasal fracture. ALLERGIES: ALLOPURINOL, KEFLEX, CLINDAMYCIN, NSAIDS, CIPRO, DOXYCYCLINE. HOME MEDICINES: Lipitor, Symbicort, Coreg, Kefzol, Valium, Lomotil, vitamin D, Amaryl, Ohlman, Dilaudid, lactated Ringer's. PHYSICAL EXAM: Vital signs stable, afebrile. CARDIOVASCULAR: S1, S2. LUNGS: Transmitted upper airway sounds. GI: Soft. HEMATOLOGY: Negative Homans. OPHTHALMOLOGIC: Pupils equal and reactive. ENT: External ear canals within normal limit. ENDOCRINE: BMI is over 40. PSYCH: Fair mood and affect. ASSESSMENT: 1. Status post right rotator cuff tendonitis with repair. 2. Diabetes mellitus. 3. Dyslipidemia. 4. Chronic obstructive pulmonary disease. 5. Hypertension. PLAN: Patient will continue with physical therapy, occupational therapy, home medicines will be ordered. Follow up in next 24 to 48 hours. Condition stable. MMODL / IJN: [id number] /
--- NOTE | 2017-08-25 11:52 | P.PN ---
Subjective Progress Note Date: 08/25/17 Principal diagnosis: Status post reverse right total knee arthroplasty Patient is seen today resting in her hospital bed, she appears comfortable. Pain is controlled at this time. She denies any headaches, lightheadedness, chest pain or shortness of breath. Objective - Vital Signs Vital signs: Vital Signs Temp 97.6 F 08/25/17 07:00 Pulse 64 08/25/17 07:00 Resp 16 08/25/17 07:00 BP 107/67 08/25/17 07:00 Pulse Ox 97 08/25/17 07:00 Intake & Output 08/24/17 08/25/17 08/25/17 18:59 06:59 18:59 Intake Total 1701 2170 Output Total 665 1010 50 Balance 1036 1160 -50 Weight 118.841 kg Intake: IV 1701 Intake, IV Titration 490 Amount Lactated Ringers 1,000 ml 490 @ 40 mls/hr IV .Q24H JOVANNY Rx#:[id number] Oral 1680 Output: Urine 415 1010 50 Uretheral (Diaz) 50 Estimated Blood Loss 250 Other: Voiding Method Indwelling Catheter Indwelling Catheter Indwelling Catheter - Exam Right upper extremity: Incisions clean, dry and intact. Soft tissue swelling and ecchymosis noted surrounding the shoulder. Sensory exam to light touch throughout the upper extremities intact. She is able to wiggle all fingers. Radial pulses 2+. - Labs CBC & Chem 7: 08/25/17 05:24 Labs: Abnormal Lab Results - Last 24 Hours (Table) 08/24/17 08/24/17 08/25/17 Range/Units 11:49 16:16 05:24 RBC 3.28 L (3.80-5.40) m/uL Hgb 10.3 L (11.4-16.0) gm/dL Hct 32.1 L (34.0-46.0) % POC Glucose (mg/dL) 110 H 141 H (75-99) mg/dL Assessment and Plan Plan: Assessment: 1. Postop day #1 status post reverse total shoulder arthroplasty Plan: 1. Pain control, continue use of oral medication 2. Daily dressing changes 3. Pendular exercises, utilize arm sling 4. GI and DVT prophylaxis, continue Xarelto 10 mg 5. Medical recommendations 6. Discharge planning: Patient will likely be discharged home tomorrow Time with Patient: Less than 30
[2017-08-25] MEDS ORDERED: CYANOCOBALAMIN 500 MCG TAB PO SCH (12:00)
[2017-08-25] MEDS ORDERED: SODIUM CHLORIDE 0.65% NASAL SPRAY 44 ML BTL NASAL PRN (12:26)
[2017-08-25] MEDS: MONTELUKAST 10 MG TAB PO SCH (20:10)
[2017-08-25] MEDS: LISINOPRIL 5 MG TAB PO SCH (20:10)
[2017-08-25] MEDS: ATORVASTATIN 40 MG TAB PO SCH (20:10)
--- NOTE | 2017-08-25 23:21 | PN ---
PROGRESS NOTE SUBJECTIVE: A 67-year-old white female with right rotator cuff surgery. No chest pain or shortness of breath. CARDIOVASCULAR: S1, S2. LUNGS: Clear. GI: Soft. HEMATOLOGY: Negative Homans'. MUSCULOSKELETAL: She has right arm in a triangle-type brace, status post surgery. ASSESSMENT: 1. Rotator cuff tendinitis. 2. Status post nasal fracture. 3. Multiple medical conditions. She is medically stable at this time. Possible discharge home in the next 24-48 hours. MMODL / IJN: [id number] /
[2017-08-26] MEDS: HYDROcodone/APAP 7.5-325MG 1 EACH TAB PO PRN ×3 (00:51→11:59)
[2017-08-26 05:57] VITALS: TEMP 98.1
[2017-08-26 07:31] LABS: Basophils % (A) 0 %; Eosinophils # (A) 0.1 k/uL (0-0.7); Eosinophils % (A) 2 %; HCT 32.3 % (34.0-46.0); HGB 10.4 gm/dL (11.4-16.0); Lymphocytes % (A) 38 %; MCH 31.6 pg (25.0-35.0); MCHC 32.2 g/dL (31.0-37.0); Mean Platelet Volume 6.9; Monocytes # (A) 0.6 k/uL (0-1.0); Monocytes % (A) 8 %; Neutrophils # (A) 3.9 k/uL (1.3-7.7); Neutrophils % (A) 50 %; Platelet Count 286 k/uL (150-450); RBC 3.29 m/uL (3.80-5.40); RDW 12.5 % (11.5-15.5); WBC 7.8 k/uL (3.8-10.6)
[2017-08-26] MEDS: SYMBICORT 80-4.5 MCG INHALER INHALATION PRN (07:37)
[2017-08-26] MEDS: traMADol 50 MG TAB PO SCH ×2 (08:33→13:26)
[2017-08-26 08:40] VITALS: BP 134/62; PULSE 64
[2017-08-26] MEDS: GLIMEPIRIDE 1 MG TAB PO SCH (08:41)
[2017-08-26] MEDS: LEVOTHYROXINE 75 MCG TAB PO SCH (08:41)
[2017-08-26] MEDS: CARVEDILOL 3.125 MG TAB PO SCH (08:41)
[2017-08-26] MEDS: MULTIVITAMINS, THERA 1 EACH TAB PO SCH (08:42)
--- NOTE | 2017-08-26 12:23 | P.PN ---
Subjective Progress Note Date: 08/26/17 Principal diagnosis: Status post reverse right total knee arthroplasty Patient is seen today resting in her hospital bed, she appears comfortable. Pain is controlled at this time. She denies any headaches, lightheadedness, chest pain or shortness of breath. Objective - Vital Signs Vital signs: Vital Signs Temp 98.1 F 08/26/17 05:57 Pulse 64 08/26/17 08:40 Resp 16 08/26/17 06:50 BP 134/62 08/26/17 08:40 Pulse Ox 97 08/26/17 07:37 Intake & Output 08/25/17 08/26/17 08/26/17 18:59 06:59 18:59 Intake Total 250 250 Output Total 300 Balance -50 250 Intake: Oral 250 250 Output: Urine 300 Uretheral (Diaz) 50 Other: Voiding Method Indwelling Catheter Toilet # Voids 1 1 - Exam Right upper extremity: Incisions clean, dry and intact. Soft tissue swelling and ecchymosis noted surrounding the shoulder. Sensory exam to light touch throughout the upper extremities intact. She is able to wiggle all fingers. Radial pulses 2+. - Labs CBC & Chem 7: 08/26/17 07:01 Labs: Abnormal Lab Results - Last 24 Hours (Table) 08/26/17 Range/Units 07:01 RBC 3.29 L (3.80-5.40) m/uL Hgb 10.4 L (11.4-16.0) gm/dL Hct 32.3 L (34.0-46.0) % Assessment and Plan Plan: Assessment: 1. Postop day #2 status post reverse total shoulder arthroplasty Plan: 1. Pain control, continue use of oral medication 2. Daily dressing changes 3. Pendular exercises, utilize arm sling 4. GI and DVT prophylaxis, continue Xarelto 10 mg 5. Medical recommendations 6. Discharge planning: Patient will be discharged home today Time with Patient: Less than 30
--- NOTE | 2017-08-26 12:26 | P.DS ---
Providers Date of admission: 08/24/17 10:41 Expected date of discharge: 08/26/17 Attending physician: Rohit Jesus Consults: 08/24/17 15:52 Consult Physician Routine Consulting Provider: Padilla Santiago Reason/Comments: Medical Management Do you want consulting provider notified?: Yes Primary care physician: Padilla Santiago [facility] Course: Date of admission: 08/24/2017 Date of discharge: 08/26/2017 Admission diagnosis: Status post reverse right total shoulder arthroplasty Discharge diagnosis: Same Attending physician: Dr. Jesus Surgical procedures: Reverse right total shoulder arthroplasty Brief history: Patient is a 67-year-old female with a history of progressive primary right shoulder osteoarthritis with rotator cuff arthropathy. At this point patient has failed conservative treatment measures and has opted to proceed with a elective reverse right total shoulder arthroplasty. Hospital course: Details of patient's surgery can be found in operative report. Patient tolerated the procedure well and was subsequently transported to orthopedic floor. Patient's orthopeidc and medical care was provided daily. Patient had daily laboratory tests performed for evaluation of overall blood counts. Patient had daily physical therapy to include strengthening range of motion as well as education with walker ambulation. Patient was treated with Xarelto for their postoperative DVT prophylaxis during their inpatient stay. Patient was noted to have a relatively uneventful postoperative course. Patient reported satisfactory pain control with oral pain medications by postoperative day 0. Patient showed satisfactory progress with physical therapy. Patient moved steadily through the program and had no difficulty meeting the goals by postoperative day 2. Given patient's otherwise satisfactory course and having met physical therapy goals, plan is to discharge patient home on postoperative day 2. Discharge condition/disposition: Patient will be discharged home in stable condition. Discharge medications: Instructions are given on resumption of patient's normal daily medications per primary care recommendation, in addition patient will be prescribed Orosi 7.5 mg/325 mg, tramadol 50 mg, Xarelto 10 mg. Discharge instructions: 1. Wound care and infection precautions, keep incision dry and covered while showering, no lotions, creams, moisturizers. No soaking, tubs, pools, hottubs. Do not scrub over the incision. 2. Utilize arm sling, pendular exercises daily 3. Ice and elevate when necessary. Do not exceed 20 minutes per hour with ice pack. 4. Utilize compression sleeve until seen at first follow up appointment. 5. Visiting nursing care. 6. Home physical therapy. 7. Pain meds and anticoagulants per prescription. 8. Pain medication has potential to cause constipation. Increase oral fluid and fiber intake. Contact primary care provider if you have not had a bowel movement within 48 hours after discharge 9. No anti-inflammatory medication until discussed at first post operative visit, this including Motrin, Aleve, Mobic, Diclofenac. 10. Follow up in office at 2 weeks postop with Kamran Calabrese PA-C 11. Follow up with your primary care doctor 7-10 days after discharge. 12. Contact [facility] with any questions, . Procedures: Reverse right total shoulder arthroplasty Patient Condition at Discharge: Good Plan - Discharge Summary Discharge Rx Participant: Yes New Discharge Prescriptions: New Rivaroxaban [Xarelto] 10 mg PO DAILY #12 tab HYDROcodone/APAP 7.5-325MG [Orosi 7.5] 1 - 2 each PO Q6HR PRN #40 tab PRN Reason: Pain traMADol HCl [Ultram] 50 mg PO Q6H PRN #40 tab PRN Reason: Pain No Action Simvastatin [Zocor] 80 mg PO HS Lisinopril [Zestril] 5 mg PO HS Carvedilol [Coreg] 3.125 mg PO BID Zafirlukast [Accolate] 20 mg PO BID Fluticasone/Salmeterol [Advair 250-50 Diskus] 1 puff INHALATION RT-BID PRN PRN Reason: Shortness Of Breath Ergocalciferol [Vitamin D2 (DRISDOL)] 50,000 unit PO Q30D Levothyroxine Sodium [Synthroid] 150 mcg PO QAM Meclizine [Antivert] 25 mg PO QID PRN #0 tab PRN Reason: Vertigo Aspirin 81 mg PO DAILY Glimepiride [Amaryl] 1 mg PO AC-BRKFST Diphenoxylate HCl/Atropine [Lomotil] 2 tab PO QID PRN PRN Reason: Diarrhea HYDROcodone/APAP 7.5-325MG [Orosi 7.5-325] 1 - 2 tab PO QID PRN PRN Reason: Pain Cyanocobalamin (Vitamin B-12) [Vitamin B-12] 1,000 mcg PO MOWEFR Calcium Carbonate [Calcium] 600 mg PO DAILY Multivit with Calcium,Iron,Min [Women's Multivitamin] 1 tab PO DAILY Pseudoephedrine [Sudafed] 30 mg PO Q6H PRN PRN Reason: Congestion rOPINIRole HCL [Requip] 0.5 mg PO HS Diazepam [Valium] 1 mg PO HS PRN PRN Reason: Insomnia Discharge Medication List Carvedilol [Coreg] 3.125 mg PO BID 03/21/14 [History] Fluticasone/Salmeterol [Advair 250-50 Diskus] 1 puff INHALATION RT-BID PRN 03/21 [History] Lisinopril [Zestril] 5 mg PO HS 03/21/14 [History] Simvastatin [Zocor] 80 mg PO HS 03/21/14 [History] Zafirlukast [Accolate] 20 mg PO BID 03/21/14 [History] Ergocalciferol [Vitamin D2 (DRISDOL)] 50,000 unit PO Q30D 10/09/14 [History] Levothyroxine Sodium [Synthroid] 150 mcg PO QAM 10/09/14 [History] Meclizine [Antivert] 25 mg PO QID PRN #0 tab 12/07/14 [Rx] Aspirin 81 mg PO DAILY 08/06/15 [History] Glimepiride [Amaryl] 1 mg PO AC-BRKFST 10/08/15 [History] Diphenoxylate HCl/Atropine [Lomotil] 2 tab PO QID PRN 03/30/16 [History] HYDROcodone/APAP 7.5-325MG [Orosi 7.5-325] 1 - 2 tab PO QID PRN 09/03/16 [ History] Calcium Carbonate [Calcium] 600 mg PO DAILY 01/07/17 [History] Cyanocobalamin (Vitamin B-12) [Vitamin B-12] 1,000 mcg PO MOWEFR 01/07/17 [ History] Multivit with Calcium,Iron,Min [Women's Multivitamin] 1 tab PO DAILY 08/04/17 [ History] Pseudoephedrine [Sudafed] 30 mg PO Q6H PRN 08/04/17 [History] rOPINIRole HCL [Requip] 0.5 mg PO HS 08/04/17 [History] Diazepam [Valium] 1 mg PO HS PRN 08/13/17 [History] Rivaroxaban [Xarelto] 10 mg PO DAILY #12 tab 08/24/17 [Rx] HYDROcodone/APAP 7.5-325MG [Orosi 7.5] 1 - 2 each PO Q6HR PRN #40 tab 08/26/17 [ Rx] traMADol HCl [Ultram] 50 mg PO Q6H PRN #40 tab 08/26/17 [Rx] Follow up Appointment(s)/Referral(s): Rober Calabrese PAC [PHYSICIAN DOCUMENT PREPARATION SPECIALIST] - 2 Weeks Activity/Diet/Wound Care/Special Instructions: Orthopedic Discharge Instructions: 1. Wound care and infection precautions, keep incision dry and covered while showering, no lotions, creams, moisturizers. No soaking, pools, hot tubs. Do not scrub over incision. 2. Utilize arm sling, pendular exercises daily 3. Ice and elevate when necessary. Do not exceed 20 minutes per hour with ice pack. 4. Utilize compression sleeve until seen at first follow up appointment. 5. Visiting nursing care. 6. Home physical therapy. 7. Pain meds and anticoagulants per prescription. 8. Pain medication has potential to cause constipation. Increase oral fluid and fiber intake. Contact primary care provider if you have not had a bowel movement within 48 hours after discharge. 9. No anti-inflammatory medication until discussed at first post operative visit, this including Motrin, Aleve, Mobic, Diclofenac. 10. Follow up in office at 2 weeks postop with Kamran Calabrese PA-C 11. Follow up with your primary care doctor 7-10 days after discharge. 12. Contact [facility] with any questions, . Discharge Disposition: HOME WITH HOME HEALTH SERVICES
--- NOTE | 2017-08-26 23:19 | PN ---
PROGRESS NOTE SUBJECTIVE: This is a white female, status post right rotator cuff replacement. She is status post nasal fracture. Pain is being controlled. Her vital signs stable. Her home meds are reordered. She will be discharged home today. She is doing much better. CARDIOVASCULAR: S1, S2. LUNGS: Clear. GI: Soft. Home meds reviewed. MMODL / IJN: [id number] /
[2017-09-16] MEDS ORDERED: ERGOCALCIFEROL 50,000 UNIT CAP PO SCH (09:00)
== END 2017-08-26 14:28 | disposition home or self-care (01) | DRG 483 ==
LOC: 2ORMAIN 10:41 → 3SUR 18:05
PROVIDERS: ADMIT Orthopaedic Surgery; ATTEND Orthopaedic Surgery
PROC: 0RRJ00Z Replacement of Right Shoulder Joint with Reverse Ball and Socket Synthetic Substitute, Open Approach (ICD-10-PCS; principal; 2017-08-24 13:20)
DX: M19.011 Primary osteoarthritis, right shoulder (principal); I42.9 Cardiomyopathy, unspecified; J44.9 Chronic obstructive pulmonary disease, unspecified; E66.01 Morbid (severe) obesity due to excess calories; Z68.42 Body mass index [BMI] 45.0-49.9, adult; E11.9 Type 2 diabetes mellitus without complications; M75.100 Unspecified rotator cuff tear or rupture of unspecified shoulder, not specified as traumatic; E78.5 Hyperlipidemia, unspecified; I10 Essential (primary) hypertension; I25.10 Atherosclerotic heart disease of native coronary artery without angina pectoris; G47.33 Obstructive sleep apnea (adult) (pediatric); E07.9 Disorder of thyroid, unspecified; I49.3 Ventricular premature depolarization; Z79.82 Long term (current) use of aspirin; Z79.899 Other long term (current) drug therapy; Z88.6 Allergy status to analgesic agent; Z88.1 Allergy status to other antibiotic agents; Z88.8 Allergy status to other drugs, medicaments and biological substances; Z95.1 Presence of aortocoronary bypass graft; Z96.651 Presence of right artificial knee joint; Z98.84 Bariatric surgery status; Z90.49 Acquired absence of other specified parts of digestive tract; Z87.891 Personal history of nicotine dependence
CPT/HCPCS: 64415; 85025; 88300; 94640; 94760

== ENCOUNTER 2017-09-17 15:19 | Inpatient (IN) | payer MEDICARE, OTHER ==
--- NOTE | 2017-09-17 16:13 | ED ---
Fall HPI <Bright Kennedy Mia - Last Filed: 09/17/17 18:35> - General Source: patient, RN notes reviewed Mode of arrival: ambulatory <Tiffany Arriaza - Last Filed: 09/17/17 19:15> - General Chief Complaint: Fall Stated Complaint: Wrist injury Time Seen by Provider: 09/17/17 15:47 - History of Present Illness Initial Comments: This is a 67-year-old female who presents to the emergency department with chief complaint of fall injury. Patient states that approximately one hour prior to arrival she was going to leave her house, felt dizzy and fell over. She states she injured her left wrist and left foot. Patient states that these episodes of dizziness are common for her. She states that she does not feel dizzy now. Patient states she is able to ambulate but has to do so by putting most of her weight on the lateral aspect of her foot. Denies any other injuries or trauma. Denies fever or chills, abdominal pain, nausea or vomiting. (Tiffany Arriaza) - Related Data Home Medications Medication Instructions Recorded Confirmed Carvedilol [Coreg] 3.125 mg PO BID 03/21/14 09/17/17 Fluticasone/Salmeterol [Advair 1 puff INHALATION RT-BID PRN 03/21/14 09/17/17 250-50 Diskus] Lisinopril [Zestril] 5 mg PO HS 03/21/14 09/17/17 Simvastatin [Zocor] 80 mg PO HS 03/21/14 09/17/17 Zafirlukast [Accolate] 20 mg PO BID 03/21/14 09/17/17 Ergocalciferol [Vitamin D2 50,000 unit PO Q30D 10/09/14 09/17/17 (DRISDOL)] Levothyroxine Sodium [Synthroid] 150 mcg PO QAM 10/09/14 09/17/17 Aspirin 81 mg PO DAILY 08/06/15 09/17/17 Glimepiride [Amaryl] 1 mg PO AC-BRKFST 10/08/15 09/17/17 Diphenoxylate HCl/Atropine 2 tab PO QID PRN 03/30/16 09/17/17 [Lomotil] Calcium Carbonate [Calcium] 600 mg PO DAILY 01/07/17 09/17/17 Cyanocobalamin (Vitamin B-12) 1,000 mcg PO MOWEFR 01/07/17 09/17/17 [Vitamin B-12] Multivit with Calcium,Iron,Min 1 tab PO DAILY 08/04/17 09/17/17 [Women's Multivitamin] rOPINIRole HCL [Requip] 0.5 mg PO HS 08/04/17 09/17/17 Diazepam [Valium] 1 mg PO HS PRN 08/13/17 09/17/17 Previous Rx's Medication Instructions Recorded Meclizine [Antivert] 25 mg PO QID PRN #0 tab 12/07/14 HYDROcodone/APAP 7.5-325MG [Aldrich 1 - 2 each PO Q6HR PRN #40 tab 08/26/17 7.5] traMADol HCl [Ultram] 50 mg PO Q6H PRN #40 tab 08/26/17 Allergies Allergy/AdvReac Type Severity Reaction Status Date / Time allopurinol Allergy Itching Verified 09/17/17 15:57 cephalexin monohydrate Allergy Itching Verified 09/17/17 15:57 [From Keflex] clindamycin Allergy Itching Verified 09/17/17 15:57 NSAIDS (Non-Steroidal AdvReac Unknown STATES NO Verified 09/17/17 15:57 Anti-Inflamma NSAIDS DUE TO GASTRIC BYPASS ciprofloxacin [From Cipro] AdvReac severe Verified 09/17/17 15:57 heartburn doxycycline AdvReac severe Verified 09/17/17 15:57 heartburn Review of Systems ROS Other: All systems not noted in ROS Statement are negative. <Bright Kennedy - Last Filed: 09/17/17 18:35> ROS Other: All systems not noted in ROS Statement are negative. <Tiffany Arriaza - Last Filed: 09/17/17 19:15> ROS Statement: Those systems with pertinent positive or pertinent negative responses have been documented in the HPI. Past Medical History Past Medical History: Asthma, Diabetes Mellitus, Hearing Disorder / Deafness, Hyperlipidemia, Hypertension, Musculoskeletal Disorder, Osteoarthritis (OA), Skin Disorder, Sleep Apnea/CPAP/BIPAP, Thyroid Disorder Additional Past Medical History / Comment(s): VERTIGO, PSORIASIS, NOT USING C- PAP, USES CANE OR WALKER PRN, recent fall & nasal fx. on 07-27-17 History of Any Multi-Drug Resistant Organisms: None Reported Past Surgical History: Bariatric Surgery, Cholecystectomy, Coronary Bypass/CABG , Heart Catheterization, Hernia Repair, Joint Replacement, Orthopedic Surgery, Tubal Ligation Additional Past Surgical History / Comment(s): KNEE ARTHROSCOPY,CABG (1992), LAP BAND AND REMOVAL. GASTRIC BYPASS 2012, UMBILICAL HERNIA REPAIR, KRISTOPHER. SHOULDER SURG, KRISTOPHER CARPAL TUNNEL. KRISTOPHER EAR SURG WITH TUBES, TOTAL LEFT KNEE, RIGHT EAR SURG Past Anesthesia/Blood Transfusion Reactions: Motion Sickness Additional Past Anesthesia/Blood Transfusion Reaction / Comment(s): VERTIGO Past Psychological History: No Psychological Hx Reported Smoking Status: Former smoker Past Alcohol Use History: None Reported Past Drug Use History: None Reported - Past Family History Sister(s) Family Medical History: Cancer Additional Family Medical History / Comment(s): LUNG CA <Tiffany Arriaza - Last Filed: 09/17/17 19:15> General Exam <Bright Kennedy - Last Filed: 09/17/17 18:35> Limitations: no limitations <Tiffany Arriaza - Last Filed: 09/17/17 19:15> - General Exam Comments Initial Comments: General: Awake and alert, well-developed; in no apparent distress. HEENT: Head atraumatic, normocephalic. Pupils are equal, round and reactive to light. Extraocular movements intact. Oropharynx moist without erythema or exudate. Neck: Supple. Normal ROM. Cardiovascular: Regular rate and rhythm. No murmurs, rubs or gallops. Chest symmetrical. Respiratory: Lungs clear to auscultation bilaterally. No wheezes, rales or rhonchi. Normal respiratory effort with no use of accessory muscles. Musculoskeletal: Limited range of motion of left wrist due to pain. There is obvious gross deformity of radius and ulna. Sensation is intact. Radial pulses are 2+ equal and palpable bilaterally. There is generalized tenderness on palpation of left wrist. Patient has normal range of motion of left ankle and left foot. Tenderness on palpation of distal first metatarsal. No swelling , ecchymosis or erythema noted. Sensation is intact. Pedal pulses are 2+ equal and palpable bilaterally. Skin: [place], warm and dry without rashes or lesions. Neurological: Alert and oriented x3. CN II-XII grossly intact. Speech is fluent and answers are appropriate. No focal neuro deficits. Psychiatric: Normal mood and affect. No overt signs of depression or anxiety noted. (Tiffany Arriaza) Course <Bright Kennedy - Last Filed: 09/17/17 18:35> <Tiffany Arriaza - Last Filed: 09/17/17 19:15> Vital Signs 09/17/17 09/17/17 09/17/17 15:35 18:23 18:57 Temperature 97.5 F L 97.9 F Pulse Rate 64 69 58 L Respiratory 18 18 18 Rate Blood Pressure 173/78 140/59 154/79 O2 Sat by Pulse 99 98 98 Oximetry - Reevaluation(s) Reevaluation #1: 09/17/17 18:35 Patient will be admitted for orthopedic repair in the morning (Bright Kennedy) Procedures - Orthopedic Splinting/Casting Injury #1 Side: left Upper Extremity Injury Location: wrist Upper Extremity Immobilizer: volar splint, synthetic pre-padded splint <Tiffany Arriaza - Last Filed: 09/17/17 19:15> - Orthopedic Splinting/Casting Injury #1 Additional Comments: Tolerated well. Neurovascularly intact. (Tiffany Arriaza) Medical Decision Making - Radiology Data Radiology results: report reviewed (X-ray positive for left wrist fracture displaced) <Bright Kennedy - Last Filed: 09/17/17 18:35> - Lab Data Result diagrams: 09/17/17 19:00 - Radiology Data Radiology results: report reviewed <Tiffany Arriaza - Last Filed: 09/17/17 19:15> - Medical Decision Making 67 female ER status post fall, left Colles' fracture with radial displacement, angulation. Patient be admitted for surgical evaluation and treatment, patient placed in splints here in the emergency room (Bright Kennedy) This is a 67-year-old female who presented to the emergency department for evaluation of fall injury. X-ray of left wrist and forearm revealed a comminuted fracture of the distal metaphyseal radius with lateral and dorsal displacement of distal fracture fragment as well as an ulnar styloid fracture. This case was discussed with attending physician, Dr. Kennedy who was in contact with Dr. Sandoval, on-call orthopedic doctor. (Tiffany Arriaza) - Lab Data Lab Results 09/17/17 Range/Units 19:00 WBC 8.7 (3.8-10.6) k/uL RBC 3.57 L (3.80-5.40) m/uL Hgb 11.1 L (11.4-16.0) gm/dL Hct 35.0 (34.0-46.0) % MCV 98.1 (80.0-100.0) fL MCH 31.2 (25.0-35.0) pg MCHC 31.8 (31.0-37.0) g/dL RDW 12.3 (11.5-15.5) % Plt Count 372 (150-450) k/uL Neutrophils % 78 % Lymphocytes % 13 % Monocytes % 5 % Eosinophils % 2 % Basophils % 1 % Neutrophils # 6.8 (1.3-7.7) k/uL Lymphocytes # 1.2 (1.0-4.8) k/uL Monocytes # 0.4 (0-1.0) k/uL Eosinophils # 0.2 (0-0.7) k/uL Basophils # 0.0 (0-0.2) k/uL - Radiology Data X-ray left forearm impression: 1. Comminuted fracture distal metaphyseal radius with lateral and dorsal displacement of distal fracture fragment. 2. Ulnar styloid fracture. X-ray left wrist impression: 1. Comminuted fracture distal metaphyseal radius. Distal fracture fragments are rotated and displaced. 2. Ulnar styloid fracture. X-ray left foot impression: No acute osseous abnormality left foot. (Tiffany Arriaza) Disposition <Bright Kennedy - Last Filed: 09/17/17 18:35> <Tiffany Arriaza - Last Filed: 09/17/17 19:15> Clinical Impression: Fall, Left wrist fracture Disposition: ADMITTED IP TO THIS HOSP Condition: Fair Referrals: Padilla Santiago MD [Primary Care Provider] - 1-2 days
--- NOTE | 2017-09-17 16:21 | XR ---
EXAMINATION TYPE: XR foot complete LT DATE OF EXAM: 09/17/2017 COMPARISON: NONE HISTORY: Pain after fall TECHNIQUE: 3 views left foot FINDINGS: Joint spaces are preserved. No acute fractures are evident. Soft tissues appear normal. Follow-up study can be performed 7-10 days from acute trauma for continued pain. IMPRESSION: 1. No acute osseous abnormality left foot
--- NOTE | 2017-09-17 16:22 | XR ---
EXAMINATION TYPE: XR forearm LT DATE OF EXAM: 09/17/2017 COMPARISON: NONE HISTORY: Fall, pain TECHNIQUE: Left forearm is examined in 2 projections FINDINGS: There is an ulnar styloid avulsion. There is a transverse fracture to the distal metaphysea l radius. The distal fracture fragment is displaced approximately one half shaft width radially and d orsally. Soft tissue swelling is over the fracture site. IMPRESSION: 1. Comminuted fracture distal metaphyseal radius with lateral and dorsal displacement of distal frac ture fragment. 2. Ulnar styloid fracture.
--- NOTE | 2017-09-17 16:25 | XR ---
EXAMINATION TYPE: XR wrist complete LT DATE OF EXAM: 09/17/2017 COMPARISON: NONE HISTORY: Fall, pain TECHNIQUE: Left wrist is examined in 4 projections FINDINGS: Ulnar styloid fracture is evident. There is a comminuted fracture the distal metaphyseal radius. The distal fracture fragment is radiall y and dorsally displaced approximately one half of one shaft width. The anterior distal radial fragme nt is rotated 90 degrees. Additional fractures are not identified. There are some degenerative joint changes noted. IMPRESSION: 1. Comminuted fracture distal metaphyseal radius. Distal fracture fragments are rotated and displace d. 2. Ulnar styloid fracture.
[2017-09-17] MEDS ORDERED: HYDROcodone/APAP 5-325MG 1 EACH TAB PO STA (16:47)
[2017-09-17] MEDS ORDERED: PROPOFOL 10 MG/ML 20 ML VIAL IV STA (17:16)
[2017-09-17] MEDS ORDERED: SODIUM CHLORIDE 0.9% 1,000 ML IV ONE (18:21)
[2017-09-17] MEDS ORDERED: SODIUM CHLORIDE 0.9% 500 ML IV STA (18:27)
[2017-09-17] MEDS ORDERED: SODIUM CHLORIDE 0.9% 1,000 ML IV STA (18:27)
[2017-09-17] MEDS ORDERED: MORPHINE SULFATE 2 MG/ML SYRINGE IVP ONE (18:33)
[2017-09-17 19:12] LABS: Basophils % (A) 1 %; Eosinophils # (A) 0.2 k/uL (0-0.7); Eosinophils % (A) 2 %; HGB 11.1 gm/dL (11.4-16.0); Lymphocytes # (A) 1.2 k/uL (1.0-4.8); Lymphocytes % (A) 13 %; MCH 31.2 pg (25.0-35.0); MCHC 31.8 g/dL (31.0-37.0); MCV 98.1 fL (80.0-100.0); Mean Platelet Volume 6.7; Monocytes # (A) 0.4 k/uL (0-1.0); Monocytes % (A) 5 %; Neutrophils # (A) 6.8 k/uL (1.3-7.7); Neutrophils % (A) 78 %; Platelet Count 372 k/uL (150-450); RBC 3.57 m/uL (3.80-5.40); RDW 12.3 % (11.5-15.5); WBC 8.7 k/uL (3.8-10.6)
[2017-09-17 19:23] LABS: ALT 24 U/L (9-52); AST 23 U/L (14-36); Albumin 3.4 g/dL (3.5-5.0); Alkaline Phosphatase 84 U/L (38-126); Anion Gap 5 mmol/L; Blood Urea Nitrogen 13 mg/dL (7-17); Carbon Dioxide 29 mmol/L (22-30); Chloride 102 mmol/L (98-107); Glucose 121 mg/dL (74-99); Magnesium 1.9 mg/dL (1.6-2.3); Phosphorus 3.2 mg/dL (2.5-4.5); Potassium 4.5 mmol/L (3.5-5.1); Sodium 136 mmol/L (137-145); Total Bilirubin 0.4 mg/dL (0.2-1.3); Total Protein 5.9 g/dL (6.3-8.2)
[2017-09-17 19:30] LABS: Creatine Kinase 49 U/L (30-135); Prothrombin Time 9.9 sec (9.0-12.0)
[2017-09-17 19:43] LABS: Creatine Kinase MB 0.4 ng/mL (0.0-2.4); Troponin I <0.012 ng/mL (0.000-0.034)
[2017-09-17 19:48] LABS: Partial Thromboplastin Time 21.6 sec (22.0-30.0)
[2017-09-17] MEDS ORDERED: DIPHENOX-ATROP 2.5-0.025 MG 1 EACH TAB PO PRN (20:29)
[2017-09-17] MEDS ORDERED: DIAZEPAM 2 MG TAB PO PRN (20:29)
[2017-09-17] MEDS ORDERED: traMADol 50 MG TAB PO PRN (20:29)
[2017-09-17] MEDS ORDERED: MECLIZINE 25 MG TAB PO PRN (20:29)
--- NOTE | 2017-09-17 21:10 | XR ---
EXAMINATION TYPE: XR chest 2V DATE OF EXAM: 09/17/2017 COMPARISON: 12/06/2014 HISTORY: Weakness TECHNIQUE: Frontal and lateral views of the chest are obtained. FINDINGS: Heart is enlarged. There is no heart failure. There is right shoulder prosthesis. There ar e sternal wires. Costophrenic angles are clear. Lungs are clear of infiltrate. IMPRESSION: Cardiomegaly. No active cardiopulmonary disease. No adverse change compared to old exam.
[2017-09-17] MEDS: LISINOPRIL 5 MG TAB PO SCH (21:48)
[2017-09-17] MEDS: MONTELUKAST 10 MG TAB PO SCH (21:48)
[2017-09-17] MEDS: CARVEDILOL 3.125 MG TAB PO SCH (21:48)
[2017-09-17] MEDS: MORPHINE SULFATE 2 MG/ML SYRINGE IVP PRN (21:48)
[2017-09-17] MEDS: ATORVASTATIN 40 MG TAB PO SCH (21:48)
[2017-09-18] MEDS: MORPHINE SULFATE 2 MG/ML SYRINGE IVP PRN ×4 (01:12→13:24)
[2017-09-18] MEDS: CYANOCOBALAMIN 500 MCG TAB PO SCH (01:37)
[2017-09-18] MEDS: LEVOTHYROXINE 75 MCG TAB PO SCH (05:15)
[2017-09-18 07:18] LABS: Glucose,Whole Blood 92 mg/dL (75-99)
[2017-09-18] MEDS: SYMBICORT 80-4.5 MCG INHALER INHALATION SCH ×2 (09:19→21:30)
[2017-09-18] MEDS: CARVEDILOL 3.125 MG TAB PO SCH ×2 (09:55→18:15)
[2017-09-18] MEDS: GLIMEPIRIDE 1 MG TAB PO SCH ×2 (09:56→13:00)
[2017-09-18] MEDS: ASPIRIN 81 MG PO SCH ×2 (09:56→13:00)
[2017-09-18] MEDS: CALCIUM CARBONATE 500 MG CHEWABLE PO SCH (11:00)
[2017-09-18] MEDS: MULTIVITAMINS, THERA 1 EACH TAB PO SCH ×2 (11:00→13:01)
[2017-09-18] MEDS: ERGOCALCIFEROL 50,000 UNIT CAP PO SCH ×2 (11:00→13:01)
[2017-09-18 11:08] LABS: Glucose,Whole Blood 101 mg/dL (75-99)
--- NOTE | 2017-09-18 12:12 | P.HPOR ---
History of Present Illness H&P Date: 09/18/17 Chief Complaint: left wrist pain 67-year-old patient who presented to the emergency room yesterday with complaint of left wrist injury. She apparently had a dizzy spell falling injuring her left wrist. She states that she has intermittent dizzy spells causing her to fall. She recently underwent right shoulder reversed arthroplasty on 08/24/2017. She is in a sling secondary to that. She has a history remotely of left total knee arthroplasty done a couple of years ago. She reports some discomfort there anteriorly. She reports some left foot pain as well. She reports injuring that when she injured her left wrist. Those are her current orthopedic complaints. Review of Systems Constitutional: Reports as per HPI Past Medical History Past Medical History: Asthma, Diabetes Mellitus, Hearing Disorder / Deafness, Hyperlipidemia, Hypertension, Musculoskeletal Disorder, Osteoarthritis (OA), Skin Disorder, Sleep Apnea/CPAP/BIPAP, Thyroid Disorder Additional Past Medical History / Comment(s): VERTIGO, PSORIASIS, NOT USING C- PAP, USES CANE OR WALKER PRN, recent fall & nasal fx. on 07-27-17 History of Any Multi-Drug Resistant Organisms: None Reported Past Surgical History: Bariatric Surgery, Cholecystectomy, Coronary Bypass/CABG , Heart Catheterization, Hernia Repair, Joint Replacement, Orthopedic Surgery, Tubal Ligation Additional Past Surgical History / Comment(s): KNEE ARTHROSCOPY,CABG (1992), LAP BAND AND REMOVAL. GASTRIC BYPASS 2012, UMBILICAL HERNIA REPAIR, KRISTOPHER. SHOULDER SURG, KRISTOPHER CARPAL TUNNEL. KRISTOPHER EAR SURG WITH TUBES, TOTAL LEFT KNEE, RIGHT EAR SURG, R shoulder surgery 08-24-17 Past Anesthesia/Blood Transfusion Reactions: Motion Sickness Additional Past Anesthesia/Blood Transfusion Reaction / Comment(s): VERTIGO Past Psychological History: No Psychological Hx Reported Smoking Status: Former smoker Past Alcohol Use History: None Reported Additional Past Alcohol Use History / Comment(s): quit smoking 1992, smoked 1 PPD x 22 yrs. Past Drug Use History: None Reported - Past Family History Sister(s) Family Medical History: Cancer Additional Family Medical History / Comment(s): LUNG CA Medications and Allergies Home Medications Medication Instructions Recorded Confirmed Type Carvedilol [Coreg] 3.125 mg PO BID 03/21/14 09/17/17 History Fluticasone/Salmeterol [Advair 1 puff INHALATION RT-BID PRN 03/21/14 09/17/17 History 250-50 Diskus] Lisinopril [Zestril] 5 mg PO HS 03/21/14 09/17/17 History Simvastatin [Zocor] 80 mg PO HS 03/21/14 09/17/17 History Zafirlukast [Accolate] 20 mg PO BID 03/21/14 09/17/17 History Ergocalciferol [Vitamin D2 50,000 unit PO Q30D 10/09/14 09/17/17 History (DRISDOL)] Levothyroxine Sodium [Synthroid] 150 mcg PO QAM 10/09/14 09/17/17 History Meclizine [Antivert] 25 mg PO QID PRN #0 tab 12/07/14 09/17/17 Rx Aspirin 81 mg PO DAILY 08/06/15 09/17/17 History Glimepiride [Amaryl] 1 mg PO AC-BRKFST 10/08/15 09/17/17 History Diphenoxylate HCl/Atropine 2 tab PO QID PRN 03/30/16 09/17/17 History [Lomotil] Calcium Carbonate [Calcium] 600 mg PO DAILY 01/07/17 09/17/17 History Cyanocobalamin (Vitamin B-12) 1,000 mcg PO MOWEFR 01/07/17 09/17/17 History [Vitamin B-12] Multivit with Calcium,Iron,Min 1 tab PO DAILY 08/04/17 09/17/17 History [Women's Multivitamin] rOPINIRole HCL [Requip] 0.5 mg PO HS 08/04/17 09/17/17 History Diazepam [Valium] 1 mg PO HS PRN 08/13/17 09/17/17 History HYDROcodone/APAP 7.5-325MG [Datil 1 - 2 each PO Q6HR PRN #40 tab 08/26/17 Rx 7.5] traMADol HCl [Ultram] 50 mg PO Q6H PRN #40 tab 08/26/17 09/17/17 Rx Allergies Allergy/AdvReac Type Severity Reaction Status Date / Time allopurinol Allergy Itching Verified 09/17/17 15:57 cephalexin monohydrate Allergy Itching Verified 09/17/17 15:57 [From Keflex] clindamycin Allergy Itching Verified 09/17/17 15:57 NSAIDS (Non-Steroidal AdvReac Unknown STATES NO Verified 09/17/17 15:57 Anti-Inflamma NSAIDS DUE TO GASTRIC BYPASS ciprofloxacin [From Cipro] AdvReac severe Verified 09/17/17 15:57 heartburn doxycycline AdvReac severe Verified 09/17/17 15:57 heartburn Physical Examination Osteopathic Statement: *. No significant issues noted on an osteopathic structural exam other than those noted in the History and Physical/Consult. Left wristSplint in place. Able to move fingers with no pain. Good perfusion and sensation distally. Left kneesmall area of ecchymosis anteriorly. Mild tenderness to palpation in that area. Well-healed anterior incision consistent with previous total knee arthroplasty. Range of motion -2-125 with no pain. Ligaments are stable. There is no intra-articular effusion present. Gentle log rolling hip with no pain. Left footsmall area of ecchymosis dorsum. Mild tenderness in that area. Good range of motion of the ankle with no pain. Moves toes with no pain. No tenderness about the ankle mortise. Mild tenderness on the dorsal midfoot area nonspecific. Good perfusion and sensation distally. Results - Labs Labs: Abnormal Lab Results - Last 24 Hours (Table) 09/17/17 09/17/17 09/17/17 Range/Units 19:00 19:00 19:00 RBC 3.57 L (3.80-5.40) m/uL Hgb 11.1 L (11.4-16.0) gm/dL APTT 21.6 L (22.0-30.0) sec Sodium 136 L (137-145) mmol/L Glucose 121 H (74-99) mg/dL POC Glucose (mg/dL) (75-99) mg/dL Total Protein 5.9 L (6.3-8.2) g/dL Albumin 3.4 L (3.5-5.0) g/dL 09/18/17 Range/Units 10:55 RBC (3.80-5.40) m/uL Hgb (11.4-16.0) gm/dL APTT (22.0-30.0) sec Sodium (137-145) mmol/L Glucose (74-99) mg/dL POC Glucose (mg/dL) 101 H (75-99) mg/dL Total Protein (6.3-8.2) g/dL Albumin (3.5-5.0) g/dL H & H 09/17/17 Range/Units 19:00 Hgb 11.1 L (11.4-16.0) gm/dL Hct 35.0 (34.0-46.0) % Coagulation 09/17/17 Range/Units 19:00 INR 1.0 (<1.2) Result Diagrams: 09/17/17 19:00 09/17/17 19:00 - Diagnostic results Wrist/Hand x-ray: report reviewed, image reviewed (severely comminuted displaced left distal radius fracture with ulnar styloid fracture) Ankle/Foot x-ray: report reviewed, image reviewed (no osseous abnormality) Assessment and Plan Assessment: 1. Severely comminuted/displaced left distal radius fracture with ulnar styloid fracture 2. Left foot dorsal contusion 3. Left anterior knee contusion with history of total knee arthroplasty 4. History of recent right shoulder reverse arthroplasty 5. History of multiple recent fallsetiology uncertain 6. Hypertension 7. Hyperlipidemia 8. Hypothyroidism Plan: 1. Will proceed with open reduction and internal fixation left wrist Wednesday 2. Maintain splint left upper extremity 3. Ice and elevate left upper extremity 4. X-ray left kneerule out osseous abnormality 5. Limited activity right upper extremity with history recent reverse shoulder arthroplasty 6. Medical clearance and medical management
--- NOTE | 2017-09-18 12:56 | XR ---
EXAMINATION TYPE: XR knee complete LT , 3 VIEWS DATE OF EXAM ORDERED: 09/18/2017 HISTORY: left knee injury rule out fracture. COMPARISON: Previous study dated 12/04/2014. FINDINGS: There is a left knee prosthesis in place. Prosthetic elements appear in good position. No fracture, dislocation or other acute osseous lesion is seen. IMPRESSION: STATUS POST LEFT KNEE ARTHROPLASTY.
--- NOTE | 2017-09-18 16:44 | CONS ---
CONSULTATION Dylon Ochoa is a 67-year-old female who presented to the ED on . At that time, she had fallen and injured her left wrist and left foot. She denied passing out, but had felt somewhat dizzy. She subsequently was seen in the ED and admitted for further evaluation to Orthopedic Surgery. PAST MEDICAL HISTORY: Past medical history is positive for asthma, diabetes mellitus, hearing disorder, hyperlipidemia, sleep apnea, vertigo, bariatric surgery, cholecystectomy, coronary artery disease, status post coronary artery bypass, left knee arthroplasty, gastric bypass, umbilical hernia surgery repair. FAMILY HISTORY: Positive for cancer in her in the form of lung cancer. SOCIAL HISTORY: The patient is a former smoker. Does not drink alcohol excessively. MEDICATIONS: Medications prior to admission were Requip, Accolate, Zocor, woman's multivitamin, Antivert, Zestril, Synthroid, Mcgrann, Amaryl, Advair Diskus, Drisdol, Lomotil, Valium, vitamin B12, Coreg, Ultram, calcium, and aspirin. REVIEW OF SYSTEMS: Noncontributory. PHYSICAL EXAMINATION: On physical examination, blood pressure 102/63, respiratory rate of 21, pulse rate of 69, temperature 98.4, O2 saturation on room air is 95%. HEENT is unremarkable. Chest reveals decreased breath sounds, prolonged expiration. No wheeze. Cardiovascular system reveals an S1, S2. Abdomen is soft. There is no edema. There is a surgical dressing over the left wrist. LABS: Labs reveal a white count 8.7, hemoglobin of 11.1. Sodium 136, potassium 4.5, chloride 102, bicarb 29, BUN 13, creatinine 0.71. IMPRESSION AT THIS TIME: 1. Left wrist fracture. 2. Asthma. 3. Coronary artery disease. 4. Anxiety. 5. Hypercholesterolemia. 6. History of asthma. 7. Diabetes mellitus. At this point in time, keep her on GI and DVT prophylaxis. Resume her home medications. Increase her activity level. Have her seen by Physical Medicine and Rehab to see if she is a candidate for inpatient rehab. Depending on how she does, we should make further changes to her care. MMODL / IJN: [id number] /
[2017-09-18 17:39] LABS: Glucose,Whole Blood 79 mg/dL (75-99)
[2017-09-18] MEDS: HYDROcodone/APAP 7.5-325MG 1 EACH TAB PO PRN (18:14)
[2017-09-18 19:58] LABS: Glucose,Whole Blood 120 mg/dL (75-99)
[2017-09-18 20:42] LABS: Hemoglobin A1C 5.4 % (4.0-6.0)
[2017-09-18] MEDS: HEPARIN SODIUM,PORCINE 5,000 UNIT/ML 1 ML VIAL SQ SCH (21:19)
[2017-09-18] MEDS: ATORVASTATIN 40 MG TAB PO SCH (21:19)
[2017-09-18] MEDS: LISINOPRIL 5 MG TAB PO SCH (21:20)
[2017-09-18] MEDS: MONTELUKAST 10 MG TAB PO SCH (21:20)
[2017-09-18] MEDS: FAMOTIDINE 20 MG TAB PO SCH (21:20)
[2017-09-19] MEDS: HYDROcodone/APAP 7.5-325MG 1 EACH TAB PO PRN ×4 (01:16→22:15)
[2017-09-19] MEDS: MORPHINE SULFATE 2 MG/ML SYRINGE IVP PRN (05:09)
[2017-09-19] MEDS: LEVOTHYROXINE 75 MCG TAB PO SCH (05:09)
[2017-09-19 07:03] LABS: Glucose,Whole Blood 90 mg/dL (75-99)
[2017-09-19] MEDS: SYMBICORT 80-4.5 MCG INHALER INHALATION SCH ×2 (07:47→20:47)
[2017-09-19] MEDS: GLIMEPIRIDE 1 MG TAB PO SCH (08:30)
[2017-09-19] MEDS: HEPARIN SODIUM,PORCINE 5,000 UNIT/ML 1 ML VIAL SQ SCH ×2 (08:30→22:17)
[2017-09-19] MEDS: CARVEDILOL 3.125 MG TAB PO SCH ×2 (08:31→17:30)
[2017-09-19] MEDS: FAMOTIDINE 20 MG TAB PO SCH ×2 (08:31→22:17)
[2017-09-19] MEDS: ASPIRIN 81 MG PO SCH (08:31)
--- NOTE | 2017-09-19 11:22 | P.PN ---
Progress Note - Text Progress Note Date: 09/19/17 The patient is seen lying in bed comfortably. There is a splint in place left upper extremity. She does report some discomfort in the left wrist area. She reports having still some discomfort in the left foot and left knee but both are improved since yesterday. She denies any other current orthopedic complaints. Left wrist- Splint is in place. Patient is able to move fingers with no pain. There is good perfusion/sensation distally. Left knee- Small area of ecchymosis anteriorly. Near full range of motion with no pain. Left foot- Small area of ecchymosis dorsally with mild tenderness there. Good range of motion of the ankle and toes with no pain. X-rays left knee-stable appearing total knee arthroplasty, no fracture Impression: 1. Comminuted displaced left distal radius and ulnar styloid fractures 2. Left knee anterior contusion with stable appearing total knee arthroplasty 3. Left dorsal foot contusion 4. Medical comorbidities Plan; 1. Continue with splint left upper extremity 2. Will proceed with open reduction and internal fixation left wrist tomorrow 3. Medical management
[2017-09-19 11:32] LABS: Glucose,Whole Blood 69 mg/dL (75-99)
[2017-09-19] MEDS: CALCIUM CARBONATE 500 MG CHEWABLE PO SCH (12:07)
[2017-09-19] MEDS: MULTIVITAMINS, THERA 1 EACH TAB PO SCH (12:08)
--- NOTE | 2017-09-19 12:39 | P.CRDCN ---
History of Present Illness Consult date: 09/19/17 History of present illness: This is a 67-year-old female with history of ischemic heart disease and previous bypass surgery being followed by Dr. Caro. Patient apparently fell and sustained fracture of the wrist on the left side and required surgery. We are asked to provide preoperative evaluation and clearance. On August 24 patient underwent right shoulder surgery. At that time patient had a cardiac evaluation by Dr. Caro. A Lexiscan stress test at that time did not reveal any ischemia. There is mild injection of the LV function with an ejection fraction of 50%. Patient tolerated surgery very well. Hasn't had any recent chest pains or shortness of breath. Based on the information, patient is stable enough to undergo surgery. Past Medical History Past Medical History: Asthma, Diabetes Mellitus, Hearing Disorder / Deafness, Hyperlipidemia, Hypertension, Musculoskeletal Disorder, Osteoarthritis (OA), Skin Disorder, Sleep Apnea/CPAP/BIPAP, Thyroid Disorder Additional Past Medical History / Comment(s): VERTIGO, PSORIASIS, NOT USING C- PAP, USES CANE OR WALKER PRN, recent fall & nasal fx. on 07-27-17 History of Any Multi-Drug Resistant Organisms: None Reported Past Surgical History: Bariatric Surgery, Cholecystectomy, Coronary Bypass/CABG , Heart Catheterization, Hernia Repair, Joint Replacement, Orthopedic Surgery, Tubal Ligation Additional Past Surgical History / Comment(s): KNEE ARTHROSCOPY,CABG (1992), LAP BAND AND REMOVAL. GASTRIC BYPASS 2012, UMBILICAL HERNIA REPAIR, KRISTOPHER. SHOULDER SURG, KRISTOPHER CARPAL TUNNEL. KRISTOPHER EAR SURG WITH TUBES, TOTAL LEFT KNEE, RIGHT EAR SURG, R shoulder surgery 08-24-17 Past Anesthesia/Blood Transfusion Reactions: Motion Sickness Additional Past Anesthesia/Blood Transfusion Reaction / Comment(s): VERTIGO Past Psychological History: No Psychological Hx Reported Smoking Status: Former smoker Past Alcohol Use History: None Reported Additional Past Alcohol Use History / Comment(s): quit smoking 1992, smoked 1 PPD x 22 yrs. Past Drug Use History: None Reported - Past Family History Sister(s) Family Medical History: Cancer Additional Family Medical History / Comment(s): LUNG CA Medications and Allergies Home Medications Medication Instructions Recorded Confirmed Type Carvedilol [Coreg] 3.125 mg PO BID 03/21/14 09/17/17 History Fluticasone/Salmeterol [Advair 1 puff INHALATION RT-BID PRN 03/21/14 09/17/17 History 250-50 Diskus] Lisinopril [Zestril] 5 mg PO HS 03/21/14 09/17/17 History Simvastatin [Zocor] 80 mg PO HS 03/21/14 09/17/17 History Zafirlukast [Accolate] 20 mg PO BID 03/21/14 09/17/17 History Ergocalciferol [Vitamin D2 50,000 unit PO Q30D 10/09/14 09/17/17 History (DRISDOL)] Levothyroxine Sodium [Synthroid] 150 mcg PO QAM 10/09/14 09/17/17 History Meclizine [Antivert] 25 mg PO QID PRN #0 tab 12/07/14 09/17/17 Rx Aspirin 81 mg PO DAILY 08/06/15 09/17/17 History Glimepiride [Amaryl] 1 mg PO AC-BRKFST 10/08/15 09/17/17 History Diphenoxylate HCl/Atropine 2 tab PO QID PRN 03/30/16 09/17/17 History [Lomotil] Calcium Carbonate [Calcium] 600 mg PO DAILY 01/07/17 09/17/17 History Cyanocobalamin (Vitamin B-12) 1,000 mcg PO MOWEFR 01/07/17 09/17/17 History [Vitamin B-12] Multivit with Calcium,Iron,Min 1 tab PO DAILY 08/04/17 09/17/17 History [Women's Multivitamin] rOPINIRole HCL [Requip] 0.5 mg PO HS 08/04/17 09/17/17 History Diazepam [Valium] 1 mg PO HS PRN 08/13/17 09/17/17 History HYDROcodone/APAP 7.5-325MG [[place] 1 - 2 each PO Q6HR PRN #40 tab 08/26/17 Rx 7.5] traMADol HCl [Ultram] 50 mg PO Q6H PRN #40 tab 08/26/17 09/17/17 Rx Allergies Allergy/AdvReac Type Severity Reaction Status Date / Time allopurinol Allergy Itching Verified 09/17/17 15:57 cephalexin monohydrate Allergy Itching Verified 09/17/17 15:57 [From Keflex] clindamycin Allergy Itching Verified 09/17/17 15:57 NSAIDS (Non-Steroidal AdvReac Unknown STATES NO Verified 09/17/17 15:57 Anti-Inflamma NSAIDS DUE TO GASTRIC BYPASS ciprofloxacin [From Cipro] AdvReac severe Verified 09/17/17 15:57 heartburn doxycycline AdvReac severe Verified 09/17/17 15:57 heartburn Physical Exam Vitals: Vital Signs Temp Pulse Resp BP Pulse Ox 09/19/17 07:49 94 L 09/19/17 07:00 96.3 F L 50 L 16 125/57 96 09/19/17 01:15 98.1 F 55 L 17 114/70 94 L 09/18/17 20:00 98.3 F 59 L 18 106/68 93 L 09/18/17 14:46 98.4 F 69 21 102/63 95 Intake and Output 09/18/17 09/19/17 09/19/17 22:59 06:59 14:59 Intake Total 240 400 240 Balance 240 400 240 Intake: Oral 240 400 240 Other: Voiding Method Bedside Commode # Voids 1 1 1 # Bowel Movements 1 GENERAL EXAM: Patient is alert and oriented and doesn't appear to be in any acute distress HEENT: Normocephalic. Normal reaction of pupils, equal size, normal range of extraocular motion. No erythema or exudates in the throat. NECK: No masses, no nuchal rigidity. CHEST: No chest wall deformity. LUNGS: [Equal air entry with no crackles or wheeze.] HEART: [S1 and S2 normal with no audible mumurs or gallops. Regular rhythm, ABDOMEN: No hepatosplenomegaly, normal bowel sounds, no guarding or rigidity. SKIN: No rashes CENTRAL NERVOUS SYSTEM: No focal deficits. EXTREMITIES: [No cyanosis, clubbing or edema. Results 09/17/17 19:00 09/17/17 19:00 Current Medications Generic Name Dose Route Start Last Admin Trade Name Freq PRN Reason Stop Dose Admin Hydrocodone Bitart/Acetaminophen 1 - 2 each 09/17/17 20:29 09/19/17 08:28 [place] 7.5-325 PO 2 each Q6HR PRN Administration Pain Aspirin 81 mg 09/18/17 09:00 09/19/17 08:31 Aspirin PO 81 mg DAILY JOVANNY Administration Atorvastatin Calcium 40 mg 09/17/17 21:00 09/18/17 21:19 Lipitor PO 40 mg HS JOVANNY Administration Budesonide/Formoterol Fumarate 2 puff 09/18/17 08:00 09/19/17 07:47 Symbicort 80-4.5 Mcg Inhaler INHALATION 2 puff RT-BID JOVANNY Administration Calcium Carbonate/Glycine 500 mg 09/18/17 12:00 09/19/17 12:07 Tums PO 500 mg 1200 [facility] Administration Carvedilol 3.125 mg 09/17/17 21:00 09/19/17 08:31 Coreg PO 3.125 mg BID-W/MEALS [facility] Administration Cyanocobalamin 1,000 mcg 09/17/17 20:30 09/18/17 01:37 Vitamin B-12 PO Not Given MoWeFr@1200 [facility] Diazepam 1 mg 09/17/17 20:29 Valium PO HS PRN Insomnia Diphenoxylate HCl/Atropine 2 each 09/17/17 20:29 Lomotil PO QID PRN Diarrhea Ergocalciferol 50,000 unit 09/18/17 12:00 09/18/17 13:01 Vitamin D2 PO 50,000 unit Q30D [facility] Administration Famotidine 20 mg 09/18/17 21:00 09/19/17 08:31 Pepcid PO 20 mg BID [facility] Administration Glimepiride 1 mg 09/18/17 07:30 09/19/17 08:30 Amaryl PO 1 mg AC-BRKFST [facility] Administration Heparin Sodium (Porcine) 5,000 unit 09/18/17 21:00 09/19/17 08:30 Heparin SQ 5,000 unit Q12HR [facility] Administration Levothyroxine Sodium 150 mcg 09/18/17 06:30 09/19/17 05:09 Synthroid PO 150 mcg 0630 JVOANNY Administration Lisinopril 5 mg 09/17/17 21:00 09/18/17 21:20 Zestril PO 5 mg HS [facility] Administration Meclizine HCl 25 mg 09/17/17 20:29 Antivert PO QID PRN Vertigo Montelukast Sodium 10 mg 09/17/17 21:00 09/18/17 21:20 Singulair PO 10 mg HS [facility] Administration Morphine Sulfate 4 mg 09/17/17 18:33 09/19/17 05:09 Morphine Sulfate (Inj) IVP 2 mg Q4HR PRN Administration Pain/Discomfort Multivitamins 1 each 09/18/17 12:00 09/19/17 12:08 Theragran PO 1 each 1200 JOVANNY Administration Ropinirole HCl 0.5 mg 09/17/17 21:00 09/18/17 21:20 Requip PO 0.5 mg HS JOVANNY Administration Tramadol HCl 50 mg 09/17/17 20:29 Ultram PO Q6H PRN Pain Intake and Output 09/18/17 09/19/17 09/19/17 22:59 06:59 14:59 Intake Total 240 400 240 Balance 240 400 240 Intake: Oral 240 400 240 Other: Voiding Method Bedside Commode # Voids 1 1 1 # Bowel Movements 1 09/17/17 19:00 09/17/17 19:00 EKG Interpretations (text) Not available at this time Assessment and Plan (1) CAD (coronary artery disease) Current Visit: Yes Status: Acute Code(s): I25.10 - ATHSCL HEART DISEASE OF [place] CORONARY ARTERY W/O ANG PCTRS SNOMED Code(s): 84509997 (2) Left wrist fracture Current Visit: Yes Status: Acute Code(s): S62.102A - FRACTURE OF UNSP CARPAL BONE, LEFT WRIST, INIT FOR CLOS FX SNOMED Code(s): 723428091 (3) History of coronary artery bypass graft Current Visit: Yes Status: Acute Code(s): Z95.1 - PRESENCE OF AORTOCORONARY BYPASS GRAFT SNOMED Code(s): 918027657 (4) Cardiomyopathy Current Visit: Yes Status: Acute Code(s): I42.9 - CARDIOMYOPATHY, UNSPECIFIED SNOMED Code(s): 95225187 Plan: Patient is clinically stable and had a nonischemic stress test in August. Patient is being cleared for surgery. We'll obtain an EKG prior to surgery.
--- NOTE | 2017-09-19 17:13 | PN ---
PROGRESS NOTE DATE OF SERVICE: 09/19/17 She was seen again on September 19, 2017. She has been hemodynamically stable. She does not have any chest pain. On physical examination. Blood pressure is 111/66, respiratory rate of 20, pulse rate of 64, temperature 98.1. HEENT is unremarkable. Chest is clear. Cardiovascular system is S1, S2. Abdomen is soft. There is no edema. There is a dressing over the left wrist. IMPRESSION: At this time is: 1. Left wrist fracture for which she is to undergo surgery tomorrow and is at average risk from a pulmonary standpoint. 2. Coronary artery disease with cardiomyopathy for which the patient has been seen by Cardiology and is clinically stable for surgery per Cardiology. Increase her activity level. Depending on how she does we shall make further changes to her care. MMODL / IJN: [id number] /
[2017-09-19 17:29] LABS: Glucose,Whole Blood 71 mg/dL (75-99)
[2017-09-19 19:41] LABS: Glucose,Whole Blood 113 mg/dL (75-99)
[2017-09-19] MEDS: LISINOPRIL 5 MG TAB PO SCH (22:17)
[2017-09-19] MEDS: MONTELUKAST 10 MG TAB PO SCH (22:17)
[2017-09-19] MEDS: ATORVASTATIN 40 MG TAB PO SCH (22:17)
[2017-09-20] MEDS: MORPHINE SULFATE 4 MG/ML SYRINGE IVP PRN ×2 (03:45→08:47)
[2017-09-20] MEDS: LEVOTHYROXINE 75 MCG TAB PO SCH (07:15)
[2017-09-20 07:28] LABS: Glucose,Whole Blood 70 mg/dL (75-99)
[2017-09-20] MEDS: CARVEDILOL 3.125 MG TAB PO SCH ×2 (07:43→16:45)
[2017-09-20] MEDS: GLIMEPIRIDE 1 MG TAB PO SCH (07:43)
[2017-09-20] MEDS: FAMOTIDINE 20 MG TAB PO SCH ×2 (07:44→20:29)
[2017-09-20] MEDS: ASPIRIN 81 MG PO SCH (07:44)
[2017-09-20] MEDS: HEPARIN SODIUM,PORCINE 5,000 UNIT/ML 1 ML VIAL SQ SCH (07:45)
[2017-09-20] MEDS: SYMBICORT 80-4.5 MCG INHALER INHALATION SCH ×2 (07:55→21:01)
[2017-09-20 11:21] LABS: Basophils % (A) 1 %; Eosinophils # (A) 0.2 k/uL (0-0.7); Eosinophils % (A) 4 %; HCT 34.4 % (34.0-46.0); HGB 10.5 gm/dL (11.4-16.0); Hypochromasia Slight; Lymphocytes # (A) 1.9 k/uL (1.0-4.8); Lymphocytes % (A) 33 %; MCH 30.8 pg (25.0-35.0); MCHC 30.5 g/dL (31.0-37.0); Mean Platelet Volume 7.1; Monocytes # (A) 0.5 k/uL (0-1.0); Monocytes % (A) 9 %; Neutrophils # (A) 2.9 k/uL (1.3-7.7); Neutrophils % (A) 51 %; Platelet Count 287 k/uL (150-450); RBC 3.41 m/uL (3.80-5.40); RDW 12.6 % (11.5-15.5); WBC 5.7 k/uL (3.8-10.6)
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
[2017-09-20 11:35] LABS: ALT 23 U/L (9-52); AST 26 U/L (14-36); Albumin 2.8 g/dL (3.5-5.0); Alkaline Phosphatase 58 U/L (38-126); Anion Gap 7 mmol/L; Blood Urea Nitrogen 11 mg/dL (7-17); Calcium 9.7 mg/dL (8.4-10.2); Carbon Dioxide 25 mmol/L (22-30); Chloride 108 mmol/L (98-107); Glucose 77 mg/dL (74-99); Sodium 140 mmol/L (137-145); Total Bilirubin 0.6 mg/dL (0.2-1.3); Total Protein 5.3 g/dL (6.3-8.2)
[2017-09-20 11:43] LABS: Potassium 4.7 mmol/L (3.5-5.1)
[2017-09-20 12:05] LABS: Glucose,Whole Blood 79 mg/dL (75-99)
[2017-09-20] MEDS: CALCIUM CARBONATE 500 MG CHEWABLE PO SCH (12:43)
[2017-09-20] MEDS: CYANOCOBALAMIN 500 MCG TAB PO SCH (12:43)
[2017-09-20] MEDS: MULTIVITAMINS, THERA 1 EACH TAB PO SCH (12:43)
[2017-09-20 14:44] VITALS: RESP 16
[2017-09-20] MEDS ORDERED: IV FLUID CONTINUATION 1,000 ML IV ONE (15:40)
[2017-09-20] MEDS ORDERED: DEXAMETHASONE SOD PHOSPHATE 10 MG/ML 1 ML VIAL IV ONE (15:57)
[2017-09-20] MEDS ORDERED: ONDANSETRON 4 MG/2 ML VIAL IVP ONE (15:57)
[2017-09-20 16:17] LABS: Glucose,Whole Blood 87 mg/dL (75-99)
[2017-09-20] MEDS ORDERED: LIDOCAINE 1% INJ 10MG/ML (20 ML MDV) ONE (17:00)
[2017-09-20] MEDS ORDERED: SUCCINYLCHOLINE CHLORIDE 100 MG/5 ML SYR IV ONE (17:00)
[2017-09-20] MEDS ORDERED: MIDAZOLAM 2 MG/2 ML VIAL ONE (17:00)
[2017-09-20] MEDS ORDERED: PROPOFOL 10 MG/ML 20 ML VIAL IV ONE (17:00)
[2017-09-20] MEDS ORDERED: SODIUM CHLORIDE 0.9% 50 ML with ceFAZolin 2,000 MG IV ONE ×2 (17:00)
[2017-09-20] MEDS ORDERED: HYDROmorphone (PF) 1 MG/ML ONE (17:00)
[2017-09-20] MEDS ORDERED: fentaNYL (PF) 50 MCG/ML 2 ML AMP ONE (17:00)
[2017-09-20] MEDS ORDERED: LABETALOL 5 MG/ML VIAL MDV ONE (17:00)
[2017-09-20] MEDS ORDERED: BUPIVACAINE (PF) 0.5% 30 ML VIAL SQ ONE (17:22)
[2017-09-20] MEDS ORDERED: ceFAZolin 1,000 MG in SODIUM CHLORIDE 0.9% 1,000 ML IRRIGATION ONE (17:30)
[2017-09-20] MEDS ORDERED: ONDANSETRON 4 MG/2 ML VIAL IVP PRN (18:36)
[2017-09-20] MEDS ORDERED: SENNOSIDES-DOCUSATE SODIUM 1 EACH TAB PO PRN (18:36)
[2017-09-20] MEDS ORDERED: HYDROmorphone 4 MG/ML 1 ML SYRINGE IVP PRN ×2 (18:36)
--- NOTE | 2017-09-20 18:38 | P.OP ---
Date of Procedure: 09/20/17 Preoperative Diagnosis: Comminuted/displaced left distal radius fracture Postoperative Diagnosis: Same Procedure(s) Performed: Open reduction and internal fixation left distal radius fracture Implants: Deniz distal volar wrist plate with appropriate length screws Anesthesia: GETA, local (20 mL quarter percent plain Marcaine) Surgeon: Khang Pedro Security Specialist #1: Rober Calabrese Estimated Blood Loss (ml): 20 Pathology: none sent Condition: stable Disposition: PACU Indications for Procedure: 67-year-old patient seen with a severely comminuted displaced left distal radius fracture. I recommended open reduction and internal fixation. The procedure, risks, complications and recovery were discussed. Patient was agreeable and consent was obtained. Operative Findings: see description of procedure Description of Procedure: The patient was taken to the operative suite. The patient underwent a general anesthetic by the department of anesthesia. Patient received preoperative IV antibiotics. A well-padded tourniquet was placed proximal left upper extremity. The left upper extremity was prepped and draped in the normal sterile orthopedic fashion. The extremity was elevated to 250. An incision was made measuring approximate 4 inches volar radial aspect left wrist sharply through skin. Dissection taken down to the fascia. The fascia was incised. Blunt dissection was taken through the muscle down to the fracture site. Blunt we [place] were position. There was no obvious severely comminuted fracture the distal radial fragment was rotated 90. This was reduced. We reduced the fracture noting a comminuted intra-articular component. I chose an appropriate standard left Deniz distal radial volar plate. It was secured with one single screw. C-arm brought in confirming adequate alignment of the severely comminuted fracture. We now introduced appropriate smoothness pegs distally to try to secure the fracture. One additional screw was placed proximal plate to secure the plate. I now review the entire construct both in AP and lateral intraoperative imaging. We had adequate alignment of the fracture and fixation. Spot films were obtained to document that. The wound was irrigated. The subcu soft tissues were approximated with 3-0 Vicryl. The skin was approximate nylon suture and then 20 mL quarter percent plain Marcaine were utilized for local analgesia.. We applied sterile dressings. The tourniquet was released with good immediate capillary refill of all digits noted. The placed was placed into a well-padded splint. She was awakened and transferred to recovery stable condition. Kamran NIETO assisted with the procedure.
--- NOTE | 2017-09-20 18:43 | FL ---
EXAMINATION TYPE: FL guidance operating room, XR wrist limited LT DATE OF EXAM: 09/20/2017 CLINICAL HISTORY: Fluoroscopic documentation for an intraoperative procedure. TECHNIQUE: Fluoroscopy. COMPARISON: None. FINDINGS/IMPRESSION: Fluoroscopic guidance was provided during procedure performed by Dr. Pedro. A total of 38 seconds of fluoroscopic time was utilized during the procedure and 2 spot images w as acquired.
[2017-09-20] MEDS ORDERED: HYDROmorphone 4 MG/ML 1 ML SYRINGE IVP ONE (18:49)
--- NOTE | 2017-09-20 19:23 | P.ONQ ---
Anesthesiology Proc Note - PNB - Peripheral Nerve Block Performed Left Axillary Single Time Out Performed: Yes Procedure Start Time: 18:50 Procedure Stop Time: 19:00 Indication: Acute Post-Operative Pain Sedation Type: Awake Preparation: Sterile Prep Position: Supine Needle Types: Facet Needle Size: 100mm (4") Needle Gauge: 21 Technique: Ultrasound (bupivacaine 0.5% with epi 1/200k 20 ml + lidocaine 1% 10 ml ) Blood Aspirated: No Pain Paresthesia on Injection Noted: No Resistance on Injection: Normal Events: Uneventful and Well Tolerated
[2017-09-20 19:36] LABS: Glucose,Whole Blood 177 mg/dL (75-99)
[2017-09-20] MEDS: MONTELUKAST 10 MG TAB PO SCH (20:29)
[2017-09-20] MEDS: LISINOPRIL 5 MG TAB PO SCH (20:29)
[2017-09-20] MEDS: ATORVASTATIN 40 MG TAB PO SCH (20:29)
[2017-09-20 21:34] LABS: Glucose,Whole Blood 263 mg/dL (75-99)
[2017-09-20] MEDS: HYDROcodone/APAP 7.5-325MG 1 EACH TAB PO PRN (22:03)
[2017-09-21] MEDS: ceFAZolin IN SWFI 2 GM/20 ML SYRINGE IVP SCH ×2 (01:16→09:04)
[2017-09-21] MEDS: HEPARIN SODIUM,PORCINE 5,000 UNIT/ML 1 ML VIAL SQ SCH ×2 (03:23→09:04)
[2017-09-21] MEDS: HYDROcodone/APAP 7.5-325MG 1 EACH TAB PO PRN ×4 (05:26→16:27)
[2017-09-21] MEDS: LEVOTHYROXINE 75 MCG TAB PO SCH (05:26)
[2017-09-21 07:09] LABS: Glucose,Whole Blood 125 mg/dL (75-99)
[2017-09-21 07:11] LABS: HCT 32.4 % (34.0-46.0); HGB 10.3 gm/dL (11.4-16.0); Hypochromasia Slight; MCHC 31.8 g/dL (31.0-37.0); MCV 100.5 fL (80.0-100.0); Platelet Count 325 k/uL (150-450); RBC 3.22 m/uL (3.80-5.40); RDW 12.3 % (11.5-15.5); WBC 8.2 k/uL (3.8-10.6)
[2017-09-21 07:26] LABS: Anion Gap 6 mmol/L; Blood Urea Nitrogen 13 mg/dL (7-17); Calcium 10.1 mg/dL (8.4-10.2); Carbon Dioxide 26 mmol/L (22-30); Chloride 108 mmol/L (98-107); Glucose 130 mg/dL (74-99); Potassium 4.5 mmol/L (3.5-5.1); Sodium 140 mmol/L (137-145)
[2017-09-21] MEDS: CARVEDILOL 3.125 MG TAB PO SCH (07:36)
[2017-09-21] MEDS: GLIMEPIRIDE 1 MG TAB PO SCH (07:44)
[2017-09-21] MEDS: FAMOTIDINE 20 MG TAB PO SCH (09:04)
[2017-09-21] MEDS: ASPIRIN 81 MG PO SCH (09:04)
[2017-09-21] MEDS: SYMBICORT 80-4.5 MCG INHALER INHALATION SCH (09:09)
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
--- NOTE | 2017-09-21 10:43 | P.PN ---
Subjective Progress Note Date: 09/21/17 Mrs. Ochoa is seen today sitting up in bed. She underwent ORIF left wrist yesterday with no immediate complications documented. She denies chest pain, shortness of breath, palpitations, dizziness, nausea, vomiting or diaphoreis. She complains only of ongoing pain to the left arm and leg since her fall. Objective - Vital Signs Vital signs: Vital Signs Temp 98.5 F 09/21/17 08:00 Pulse 50 L 09/21/17 08:00 Resp 16 09/21/17 08:00 BP 125/57 09/21/17 08:00 Pulse Ox 96 09/21/17 08:00 Intake & Output 09/20/17 09/21/17 09/21/17 18:59 06:59 18:59 Intake Total 801 1500 120 Output Total 320 Balance 481 1500 120 Weight 118.841 kg Intake: IV 801 300 ,9 KVO 200 Oral 1200 120 Output: Urine 300 Estimated Blood Loss 20 Other: Voiding Method Bedside Commode Bedside Commode Bedside Commode # Voids 2 2 1 - Exam Blood pressure 125/57 heart rate 50 afebrile GENERAL: Well-appearing, well-nourished and in no acute distress. NECK: Supple without JVD or thyromegaly. LUNGS: Breath sounds clear to auscultation bilaterally. Respiration equal and unlabored. No wheezes, rales or rhonchi. HEART: Regular rate and rhythm without murmurs, rubs or gallops. S1 and S2 heard. EXTREMITIES: Normal range of motion, positive swelling to left hand, no lower extremity swelling. No clubbing or cyanosis. Peripheral pulses intact, unable to assess left radial pulse secondary to caste. - Labs CBC & Chem 7: 09/21/17 06:46 09/21/17 06:46 Labs: Abnormal Lab Results - Last 24 Hours (Table) 09/20/17 09/20/17 09/20/17 Range/Units 10:50 10:50 19:34 RBC 3.41 L (3.80-5.40) m/uL Hgb 10.5 L (11.4-16.0) gm/dL Hct (34.0-46.0) % MCV 101.0 H (80.0-100.0) fL MCHC 30.5 L (31.0-37.0) g/dL Chloride 108 H (98-107) mmol/L Glucose (74-99) mg/dL POC Glucose (mg/dL) 177 H (75-99) mg/dL Total Protein 5.3 L (6.3-8.2) g/dL Albumin 2.8 L (3.5-5.0) g/dL 09/20/17 09/21/17 09/21/17 Range/Units 21:10 06:46 06:46 RBC 3.22 L (3.80-5.40) m/uL Hgb 10.3 L (11.4-16.0) gm/dL Hct 32.4 L (34.0-46.0) % MCV 100.5 H (80.0-100.0) fL MCHC (31.0-37.0) g/dL Chloride 108 H (98-107) mmol/L Glucose 130 H (74-99) mg/dL POC Glucose (mg/dL) 263 H (75-99) mg/dL Total Protein (6.3-8.2) g/dL Albumin (3.5-5.0) g/dL 09/21/17 Range/Units 07:00 RBC (3.80-5.40) m/uL Hgb (11.4-16.0) gm/dL Hct (34.0-46.0) % MCV (80.0-100.0) fL MCHC (31.0-37.0) g/dL Chloride (98-107) mmol/L Glucose (74-99) mg/dL POC Glucose (mg/dL) 125 H (75-99) mg/dL Total Protein (6.3-8.2) g/dL Albumin (3.5-5.0) g/dL Assessment and Plan Assessment: ASSESSMENT 1. Left wrist fracture status post ORIF postoperative day #1 2. History of coronary artery disease and bypass grafting 3. Ischemic cardiomyopathy PLAN Mrs. Ochoa is euvolemic with no evidence of arrhythmia. Continue with current medications as ordered. From cardiac perspective Mrs. Ochoa is stable. Follow-up with Dr. Caro as needed upon discharge. We will see her as-needed, please call with any questions/concerns moving forward. Thank you. Nurse Practitioner note has been reviewed, I agree with a documented findings and plan of care. Patient was seen and examined.
[2017-09-21] MEDS: CALCIUM CARBONATE 500 MG CHEWABLE PO SCH (10:56)
[2017-09-21] MEDS: MULTIVITAMINS, THERA 1 EACH TAB PO SCH (10:56)
[2017-09-21 11:18] LABS: Glucose,Whole Blood 94 mg/dL (75-99)
--- NOTE | 2017-09-21 14:02 | P.PN ---
Subjective Progress Note Date: 09/21/17 Principal diagnosis: Status post ORIF left distal radius fracture Patient seen today resting in her hospital bed, she appears comfortable. She has some discomfort in the left wrist. She denies any headaches, lightheadedness, chest pain or shortness of breath. Objective - Vital Signs Vital signs: Vital Signs Temp 98.5 F 09/21/17 08:00 Pulse 50 L 09/21/17 08:00 Resp 16 09/21/17 08:00 BP 125/57 09/21/17 08:00 Pulse Ox 96 09/21/17 08:00 Intake & Output 09/20/17 09/21/17 09/21/17 18:59 06:59 18:59 Intake Total 801 1500 120 Output Total 320 Balance 481 1500 120 Weight 118.841 kg Intake: IV 801 300 ,9 KVO 200 Oral 1200 120 Output: Urine 300 Estimated Blood Loss 20 Other: Voiding Method Bedside Commode Bedside Commode Bedside Commode # Voids 2 2 1 - Exam Left upper extremity: Postop splint is in good position. There is notable swelling in the hand. She is able to wiggle all fingers. Her cap refills less than 2 seconds. She notes some numbness in the fingertips at this point. Sensation to light touch proximal to the splint is intact. - Labs CBC & Chem 7: 09/21/17 06:46 09/21/17 06:46 Labs: Abnormal Lab Results - Last 24 Hours (Table) 09/20/17 09/20/17 09/21/17 Range/Units 19:34 21:10 06:46 RBC 3.22 L (3.80-5.40) m/uL Hgb 10.3 L (11.4-16.0) gm/dL Hct 32.4 L (34.0-46.0) % MCV 100.5 H (80.0-100.0) fL Chloride (98-107) mmol/L Glucose (74-99) mg/dL POC Glucose (mg/dL) 177 H 263 H (75-99) mg/dL 09/21/17 09/21/17 Range/Units 06:46 07:00 RBC (3.80-5.40) m/uL Hgb (11.4-16.0) gm/dL Hct (34.0-46.0) % MCV (80.0-100.0) fL Chloride 108 H (98-107) mmol/L Glucose 130 H (74-99) mg/dL POC Glucose (mg/dL) 125 H (75-99) mg/dL Assessment and Plan Plan: Assessment: 1. Postop day #1 status post ORIF left distal radius fracture Plan: 1. Pain control, continue supportive oral medication 2. Cast instructions are discussed 3. Await neurology recommendations 4. Other medical record retrieval specialist recommendations 5. Discharge planning: [facility] patient is stable for discharge, we'll await neurology's recommendations Time with Patient: Less than 30
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
--- NOTE | 2017-09-21 14:39 | P.CNNES ---
History of Present Illness Consult date: 09/21/17 History of Present Illness: The patient is a 67-year-old right-handed white female who presented to the emergency room on September 17 after a fall at home. Neurology is requested to see the patient regarding dizziness. The patient has a history of vertigo going back 10 years off-and-on. She states her vertigo has been stable. She has episodes periodically. She reports that when she fell at home she felt a lightheadedness and not of vertigo. She describes a lightheadedness as a feeling as if she should sit down. It was very distinct and's different from vertigo. She denied any focal weakness in the legs. She denied any blurred vision or loss of coordination. The patient has had 2 falls over the last 12 months. On July 27 she fell but she states that also occurred after being lightheaded. At that time she had been evaluated apparently with MRI of the brain and she had had a nasal fracture which was repaired. She is currently in the hospital suffering injury to her left wrist and underwent surgery yesterday. States she is doing better and denies any neurologic complaint. Suffered a comminuted fracture distal metaphyseal radius and ulnar styloid fracture Review of Systems Constitutional: Denies chills, Denies fever Eyes: denies blurred vision, denies pain Cardiovascular: Denies chest pain, Denies shortness of breath Respiratory: Denies cough Musculoskeletal: Denies myalgias Neurological: Denies numbness, Denies weakness Past Medical History Past Medical History: Asthma, Diabetes Mellitus, Hearing Disorder / Deafness, Hyperlipidemia, Hypertension, Musculoskeletal Disorder, Osteoarthritis (OA), Skin Disorder, Sleep Apnea/CPAP/BIPAP, Thyroid Disorder Additional Past Medical History / Comment(s): VERTIGO, PSORIASIS, NOT USING C- PAP, USES CANE OR WALKER PRN, recent fall & nasal fx. on 07-27-17 History of Any Multi-Drug Resistant Organisms: None Reported Past Surgical History: Bariatric Surgery, Cholecystectomy, Coronary Bypass/CABG , Heart Catheterization, Hernia Repair, Joint Replacement, Orthopedic Surgery, Tubal Ligation Additional Past Surgical History / Comment(s): KNEE ARTHROSCOPY,CABG (1992), LAP BAND AND REMOVAL. GASTRIC BYPASS 2012, UMBILICAL HERNIA REPAIR, KRISTOPHER. SHOULDER SURG, KRISTOPHER CARPAL TUNNEL. KRISTOPHER EAR SURG WITH TUBES, TOTAL LEFT KNEE, RIGHT EAR SURG, R shoulder surgery 08-24-17 Past Anesthesia/Blood Transfusion Reactions: Motion Sickness Additional Past Anesthesia/Blood Transfusion Reaction / Comment(s): VERTIGO Past Psychological History: No Psychological Hx Reported Smoking Status: Former smoker Past Alcohol Use History: None Reported Additional Past Alcohol Use History / Comment(s): quit smoking 1992, smoked 1 PPD x 22 yrs. Past Drug Use History: None Reported - Past Family History Sister(s) Family Medical History: Cancer Additional Family Medical History / Comment(s): LUNG CA Medications and Allergies Home Medications Medication Instructions Recorded Confirmed Type Carvedilol [Coreg] 3.125 mg PO BID 03/21/14 09/17/17 History Fluticasone/Salmeterol [Advair 1 puff INHALATION RT-BID PRN 03/21/14 09/17/17 History 250-50 Diskus] Lisinopril [Zestril] 5 mg PO HS 03/21/14 09/17/17 History Simvastatin [Zocor] 80 mg PO HS 03/21/14 09/17/17 History Zafirlukast [Accolate] 20 mg PO BID 03/21/14 09/17/17 History Ergocalciferol [Vitamin D2 50,000 unit PO Q30D 10/09/14 09/17/17 History (DRISDOL)] Levothyroxine Sodium [Synthroid] 150 mcg PO QAM 10/09/14 09/17/17 History Meclizine [Antivert] 25 mg PO QID PRN #0 tab 12/07/14 09/17/17 Rx Aspirin 81 mg PO DAILY 08/06/15 09/17/17 History Glimepiride [Amaryl] 1 mg PO AC-BRKFST 10/08/15 09/17/17 History Diphenoxylate HCl/Atropine 2 tab PO QID PRN 03/30/16 09/17/17 History [Lomotil] Calcium Carbonate [Calcium] 600 mg PO DAILY 01/07/17 09/17/17 History Cyanocobalamin (Vitamin B-12) 1,000 mcg PO MOWEFR 01/07/17 09/17/17 History [Vitamin B-12] Multivit with Calcium,Iron,Min 1 tab PO DAILY 08/04/17 09/17/17 History [Women's Multivitamin] rOPINIRole HCL [Requip] 0.5 mg PO HS 08/04/17 09/17/17 History Diazepam [Valium] 1 mg PO HS PRN 08/13/17 09/17/17 History HYDROcodone/APAP 7.5-325MG [[place] 1 each PO Q6HR PRN #40 tab 09/21/17 Rx 7.5] traMADol HCl [Ultram] 50 mg PO Q6H PRN #30 tab 09/21/17 Rx Allergies Allergy/AdvReac Type Severity Reaction Status Date / Time allopurinol Allergy Itching Verified 09/17/17 15:57 cephalexin monohydrate Allergy Itching Verified 09/17/17 15:57 [From Keflex] clindamycin Allergy Itching Verified 09/17/17 15:57 NSAIDS (Non-Steroidal AdvReac Unknown STATES NO Verified 09/17/17 15:57 Anti-Inflamma NSAIDS DUE TO GASTRIC BYPASS ciprofloxacin [From Cipro] AdvReac severe Verified 09/17/17 15:57 heartburn doxycycline AdvReac severe Verified 09/17/17 15:57 heartburn Physical Examination - Vital Signs Vital Signs: Vital Signs Temp Pulse Pulse Pulse Pulse Resp BP 09/21/17 08:00 98.5 F 50 L 16 125/57 09/21/17 02:30 99.2 F 60 16 122/56 09/20/17 21:45 66 104/51 09/20/17 21:30 91 105/54 09/20/17 21:15 64 124/64 09/20/17 21:00 60 113/56 09/20/17 20:45 63 114/56 09/20/17 20:30 92 141/68 09/20/17 20:15 61 142/67 09/20/17 20:00 98.5 F 55 L 16 146/61 09/20/17 19:36 65 16 129/57 09/20/17 19:15 67 16 123/59 09/20/17 19:00 62 16 146/64 09/20/17 18:47 60 16 134/63 09/20/17 18:32 98.1 F 63 16 118/58 09/20/17 15:59 98.7 F 66 16 140/69 09/20/17 14:43 97.8 F 61 16 97/58 Pulse Ox 09/21/17 08:00 96 09/21/17 02:30 95 02/05/18 21:45 09/20/17 21:30 09/20/17 21:15 09/20/17 21:00 96 09/20/17 20:45 09/20/17 20:30 09/20/17 20:15 09/20/17 20:00 100 09/20/17 19:36 95 09/20/17 19:15 94 L 09/20/17 19:00 97 09/20/17 18:47 97 09/20/17 18:32 95 09/20/17 15:59 96 09/20/17 14:43 98 Intake and Output 09/20/17 09/21/17 09/21/17 22:59 06:59 14:59 Intake Total 1541 760 120 Output Total 320 Balance 1221 760 120 Intake: IV 941 160 ,9 KVO 40 160 Oral 600 600 120 Output: Urine 300 Estimated Blood Loss 20 Other: Voiding Method Bedside Commode Bedside Commode # Voids 1 2 1 - Constitutional General appearance: obese - EENT EENT: PERRL, hearing intact, vision intact - Respiratory Respiratory: lungs clear - Cardiovascular Cardiovascular: regular rate - Integumentary Integumentary: normal - Neurologic Status she was awake alert and oriented chance of questions appropriately there is no aphasia or dysarthria Cranial nerve examination: PERRL, EOMI, VFF, tongue midline Speech examination: intact Sensorimotor examination: intact Detailed motor examination: grossly full strength in all extremities, other ( Left hand and forearm in a brace) - Psychiatric Psychiatric: mood/affect appropriate Results - Laboratory Findings CBC and BMP: 09/21/17 06:46 09/21/17 06:46 Abnormal Lab Findings: Abnormal Labs 09/17/17 09/17/17 09/17/17 19:00 19:00 19:00 RBC 3.57 L Hgb 11.1 L Hct MCV MCHC APTT 21.6 L Sodium 136 L Chloride Glucose 121 H POC Glucose (mg/dL) Total Protein 5.9 L Albumin 3.4 L 09/18/17 09/18/17 09/19/17 10:55 19:47 11:22 RBC Hgb Hct MCV MCHC APTT Sodium Chloride Glucose POC Glucose (mg/dL) 101 H 120 H 69 L Total Protein Albumin 09/19/17 09/19/17 09/20/17 17:16 19:27 07:00 RBC Hgb Hct MCV MCHC APTT Sodium Chloride Glucose POC Glucose (mg/dL) 71 L 113 H 70 L Total Protein Albumin 09/20/17 09/20/17 09/20/17 10:50 10:50 19:34 RBC 3.41 L Hgb 10.5 L Hct MCV 101.0 H MCHC 30.5 L APTT Sodium Chloride 108 H Glucose POC Glucose (mg/dL) 177 H Total Protein 5.3 L Albumin 2.8 L 09/20/17 09/21/17 09/21/17 21:10 06:46 06:46 RBC 3.22 L Hgb 10.3 L Hct 32.4 L MCV 100.5 H MCHC APTT Sodium Chloride 108 H Glucose 130 H POC Glucose (mg/dL) 263 H Total Protein Albumin 09/21/17 07:00 RBC Hgb Hct MCV MCHC APTT Sodium Chloride Glucose POC Glucose (mg/dL) 125 H Total Protein Albumin Assessment and Plan (1) Dizziness Current Visit: Yes Status: Acute SNOMED Code(s): 381083573 (2) Fall Current Visit: Yes Status: Acute SNOMED Code(s): 9592640 (3) Left wrist fracture Current Visit: Yes Status: Acute SNOMED Code(s): 951407136 Plan: The patient is a 67-year-old woman with history of recent fall and injury to left wrist. Neurology is requested to see the patient regarding dizziness. The patient did have some lightheadedness prior to her fall but there was no vertigo or any other associated neurologic symptoms. The patient gives a history of vertigo in the past and this has been periodic and getting better over the years. The patient states that she has had recent carotid ultrasound done which she reports was normal. The patient will be using a walker for now. She will continue Antivert prn vertigo
[2017-09-21 15:07] VITALS: BP 120/64; PULSE 77; TEMP 98.1
== END 2017-09-21 17:00 | disposition home or self-care (01) | DRG 511 ==
LOC: EC 15:19 → 3SUR 18:33
PROVIDERS: ADMIT Orthopaedic Surgery; ATTEND Orthopaedic Surgery
PROC: 2W3DX1Z Immobilization of Left Lower Arm using Splint (ICD-10-PCS; 2017-09-17)
PROC: 0PSJ04Z Reposition Left Radius with Internal Fixation Device, Open Approach (ICD-10-PCS; principal; 2017-09-20 09:15)
DX: S52.502A Unspecified fracture of the lower end of left radius, initial encounter for closed fracture (principal); Z68.42 Body mass index [BMI] 45.0-49.9, adult; E66.9 Obesity, unspecified; S52.612A Displaced fracture of left ulna styloid process, initial encounter for closed fracture; S80.02XA Contusion of left knee, initial encounter; S90.32XA Contusion of left foot, initial encounter; G47.33 Obstructive sleep apnea (adult) (pediatric); E03.9 Hypothyroidism, unspecified; E11.9 Type 2 diabetes mellitus without complications; J45.909 Unspecified asthma, uncomplicated; I25.5 Ischemic cardiomyopathy; I25.10 Atherosclerotic heart disease of native coronary artery without angina pectoris; E78.5 Hyperlipidemia, unspecified; I10 Essential (primary) hypertension; M19.91 Primary osteoarthritis, unspecified site; F41.9 Anxiety disorder, unspecified; R42 Dizziness and giddiness; L40.9 Psoriasis, unspecified; R51 Headache; R29.6 Repeated falls; H91.90 Unspecified hearing loss, unspecified ear; Z79.82 Long term (current) use of aspirin; Z79.84 Long term (current) use of oral hypoglycemic drugs; Z79.51 Long term (current) use of inhaled steroids; Z79.899 Other long term (current) drug therapy; Z87.81 Personal history of (healed) traumatic fracture; Z90.49 Acquired absence of other specified parts of digestive tract; Z98.84 Bariatric surgery status; Z95.1 Presence of aortocoronary bypass graft; Z96.652 Presence of left artificial knee joint; Z96.611 Presence of right artificial shoulder joint; Z87.891 Personal history of nicotine dependence; Z88.1 Allergy status to other antibiotic agents; Z88.8 Allergy status to other drugs, medicaments and biological substances; W19.XXXA Unspecified fall, initial encounter; Y92.009 Unspecified place in unspecified non-institutional (private) residence as the place of occurrence of the external cause
CPT/HCPCS: 29125; 36415; 71046; 80048; 80053; 82550; 82553; 83036; 83735; 84100; 84484; 85025; 85027; 85610; 85730; 86850; 86900; 86901; 93005; 94640; 94760; 96361; 96374; 99284

== ENCOUNTER → 2018-01-18 | Outpatient (CLI) | payer MEDICARE, OTHER ==
[2018-01-18 18:24] LABS: Blood Urea Nitrogen 16 mg/dL (7-17)
--- NOTE | 2018-01-19 08:54 | CT ---
EXAMINATION TYPE: CT abdomen pelvis w con DATE OF EXAM: 01/18/2018 COMPARISON: 07/21/2011. INDICATION: Right lower quadrant pain. DLP: 2713.4 mGycm, Automated exposure control for dose reduction was used. CONTRAST: 100 mL of Isovue 300. Study performed with Oral Contrast TECHNIQUE: Axial images were obtained from above the diaphragm to the pubic rami in the axial plane a t 5 mm thick sections. Reconstructed images are reviewed on the computer in the coronal plane. FINDINGS: Limited CT sections are obtained the lung bases. The lung bases are clear. Small hiatal hernia may be present. CT ABDOMEN: Postsurgical changes are within the stomach and epigastric region. Liver: There is a coarse calcification in the mid right upper lobe liver. Spleen: Normal Pancreas: Atrophic. Adrenal glands: Left adrenal gland is somewhat prominent measuring 1.6 cm transverse dimension. This is stable. Gallbladder: Surgically absent. Kidneys: No masses are evident. No hydronephrosis is present. There is a 1.7 cm cyst on the posteri or upper pole left kidney measuring 13 Hounsfield units. This is increased in size from comparison 20 11. There is a 2.7 cm cyst inferior lateral aspect right kidney measuring 10 Hounsfield units. This i s increased in size over the interval. Delayed images were obtained through the kidneys, which remai n unremarkable. Aorta: Vascular calcification is within the aorta. Inferior vena cava: Normal. CT PELVIS: There is thickening of the terminal ileum. Some inflammatory changes are adjacent. Clinical correlati on recommended for Crohn's disease. No obstruction is evident. Small bowel loops have a normal calibe r. Some contrast extends to the cecum. A lymph node measures 0.9 cm just superior to the terminal ile um. Some additional lymphadenopathy is likely adjacent. There are loops of bowel which are incomplete ly distended or lack oral contrast limiting their evaluation. Diverticular changes are within the sig moid colon. No acute diverticulitis is evident. Appendix: Normal as visualized. Urinary bladder: Normal. Genitourinary structures: Urinary bladder is unremarkable as visualized. This is decompressed with so me limitation. Osseous structures: No suspicious lytic or sclerotic lesions. Sacroiliac joint degenerative changes a re present. Facet hypertrophy is present L5-S1. IMPRESSIONS: 1. Thickening of the terminal ileum with adjacent inflammatory changes can be compatible with Crohn's disease. 2. Stable left adrenal prominence from 2010. 3. Diverticulosis without acute diverticulitis.
== END | disposition home or self-care (01) ==
LOC: RADCTMAIN 17:38
PROVIDERS: ATTEND Family Medicine
DX: K57.30 Diverticulosis of large intestine without perforation or abscess without bleeding (principal); K52.9 Noninfective gastroenteritis and colitis, unspecified
CPT/HCPCS: 82565; 84520; 74177; 36415; Q9967

== ENCOUNTER 2018-03-15 06:41 | Day surgery (SDC) | payer MEDICARE, OTHER ==
[2018-03-10 13:57] VITALS: BMI 45.5
[~2018-03-15 06:41] MED LIST changes: -ACETAMINOPHEN TAB 500 MG TAB PO ONE; -DEXAMETHASONE SOD PHOSPHATE 10 MG/ML 1 ML VIAL IV ONE; +LACTATED RINGERS 1,000 ML IV SCH; -LIDOCAINE 1% 20 ML VIAL (10MG/ML) FOR IV START INTRADERMA PRN; -MELOXICAM 7.5 MG TAB PO ONE; -ONDANSETRON 4 MG/2 ML VIAL IVP ONE; -SCOPOLAMINE 1.5MG/72HR PATCH TRANSDERM ONE; -TRANEXAMIC ACID 1,000 MG in SODIUM CHLORIDE 0.9% 50 ML IVPB ONE; -ceFAZolin IN SWFI 2 GM/20 ML SYRINGE IVP ONE
[2018-03-15 07:05] VITALS: TEMP 98.2
[2018-03-15 07:18] LABS: Glucose,Whole Blood 132 mg/dL (75-99)
[2018-03-15] MEDS ORDERED: LIDOCAINE 1% 20 ML VIAL (10MG/ML) FOR IV START INTRADERMA ONE (07:19)
[2018-03-15] MEDS ORDERED: GLUCAGON 1 MG/ML VIAL ONE (07:42)
[2018-03-15] MEDS ORDERED: PROPOFOL 10 MG/ML 20 ML VIAL IV ONE (07:42)
--- NOTE | 2018-03-15 07:48 | P.GSHP ---
History of Present Illness H&P Date: 03/15/18 Chief Complaint: Colitis Is a 67-year-old female referred from Dr. Padilla Vasquez. Patient presents today for colonoscopy. She's had issues of abdominal pain and some intermittent diarrhea. Her recent CAT scan shows evidence of diverticulosis and possible inflammation of terminal ileum. Past Medical History Past Medical History: Asthma, Coronary Artery Disease (CAD), Diabetes Mellitus, Hearing Disorder / Deafness, Hyperlipidemia, Hypertension, Musculoskeletal Disorder, Osteoarthritis (OA), Skin Disorder, Sleep Apnea/CPAP/BIPAP, Thyroid Disorder Additional Past Medical History / Comment(s): deaf left ear. VERTIGO, PSORIASIS , NO C-PAP, USES CANE OR WALKER PRN, restless leg History of Any Multi-Drug Resistant Organisms: None Reported Past Surgical History: Bariatric Surgery, Cholecystectomy, Coronary Bypass/CABG , Heart Catheterization, Hernia Repair, Joint Replacement, Orthopedic Surgery, Tubal Ligation Additional Past Surgical History / Comment(s): KNEE ARTHROSCOPY,CABG x1 (1992), LAP BAND AND REMOVAL. GASTRIC BYPASS 2012, UMBILICAL HERNIA REPAIR, KRISTOPHER. SHOULDER SURG, KRISTOPHER CARPAL TUNNEL. KRISTOPHER EAR SURG WITH TUBES, TOTAL LEFT KNEE, RIGHT EAR SURG, R shoulder surgery Past Anesthesia/Blood Transfusion Reactions: Motion Sickness Additional Past Anesthesia/Blood Transfusion Reaction / Comment(s): VERTIGO Smoking Status: Former smoker - Past Family History Sister(s) Family Medical History: Cancer Additional Family Medical History / Comment(s): LUNG CA Medications and Allergies Home Medications Medication Instructions Recorded Confirmed Type Carvedilol [Coreg] 3.125 mg PO BID 03/21/14 03/15/18 History Fluticasone/Salmeterol [Advair 1 puff INHALATION RT-BID PRN 03/21/14 03/15/18 History 250-50 Diskus] Lisinopril [Zestril] 5 mg PO HS 03/21/14 03/15/18 History Simvastatin [Zocor] 80 mg PO HS 03/21/14 03/15/18 History Zafirlukast [Accolate] 20 mg PO BID 03/21/14 03/15/18 History Ergocalciferol [Vitamin D2 50,000 unit PO MO 10/09/14 03/15/18 History (DRISDOL)] Levothyroxine Sodium [Synthroid] 150 mcg PO QAM 10/09/14 03/15/18 History Aspirin 81 mg PO DAILY 08/06/15 03/15/18 History Glimepiride [Amaryl] 1 mg PO AC-BRKFST 10/08/15 03/15/18 History Diphenoxylate HCl/Atropine 2 tab PO QID PRN 03/30/16 03/15/18 History [Lomotil] Calcium Carbonate [Calcium] 600 mg PO DAILY 01/07/17 03/15/18 History Cyanocobalamin (Vitamin B-12) 1,000 mcg PO DAILY 01/07/17 03/15/18 History [Vitamin B-12] Multivit with Calcium,Iron,Min 1 tab PO DAILY 08/04/17 03/15/18 History [Women's Multivitamin] rOPINIRole HCL [Requip] 0.5 mg PO HS 08/04/17 03/15/18 History ALPRAZolam [Xanax] 0.5 mg PO HS 03/10/18 03/15/18 History Calcium Citrate 500 mg PO BID 03/10/18 03/15/18 History Hydrocodone/Acetaminophen 1 tab PO Q4-6H PRN 03/10/18 03/15/18 History [Hydrocodon-Acetaminophn 10-325] Meclizine [Antivert] 25 mg PO TID 03/10/18 03/15/18 History Allergies Allergy/AdvReac Type Severity Reaction Status Date / Time allopurinol Allergy Itching Verified 03/15/18 07:10 cephalexin monohydrate Allergy Itching Verified 03/15/18 07:10 [From Keflex] clindamycin Allergy Itching Verified 03/15/18 07:10 NSAIDS (Non-Steroidal AdvReac Unknown STATES NO Verified 03/15/18 07:10 Anti-Inflamma NSAIDS DUE TO GASTRIC BYPASS ciprofloxacin [From Cipro] AdvReac severe Verified 03/15/18 07:10 heartburn doxycycline AdvReac severe Verified 03/15/18 07:10 heartburn Surgical - Exam Vital Signs Temp Pulse Resp BP Pulse Ox 98.2 F 53 L 16 124/76 96 03/15/18 07:00 03/15/18 07:00 03/15/18 07:00 03/15/18 07:00 03/15/18 07:00 - General well developed, no distress - Eyes PERRL - ENT normal pinna - Neck no masses - Respiratory normal expansion - Cardiovascular Rhythm: regular - Abdomen Abdomen: soft, non tender Results - Labs Abnormal Lab Results - Last 24 Hours (Table) 03/15/18 Range/Units 07:16 POC Glucose (mg/dL) 132 H (75-99) mg/dL Assessment and Plan Assessment: Abdominal pain, diarrhea. We'll perform colonoscopy.
--- NOTE | 2018-03-15 08:08 | P.OP ---
Date of Procedure: 03/15/18 Preoperative Diagnosis: Colitis Postoperative Diagnosis: Diverticulosis Transverse colon polyp Cecal biopsy Procedure(s) Performed: Colonoscopy Anesthesia: MAC Surgeon: Mannie Tanner Pathology: other (Cecal biopsy, transverse colon polyp) Condition: stable Disposition: PACU Description of Procedure: The patient's placed on the endoscopy table in the lateral position. She received IV sedation. Digital rectal exam was performed which revealed mild internal and external hemorrhoids. The flexible colonoscope was then placed patient anus passed rotator colon. The ileocecal valve was visualized. The cecum appeared normal. A random biopsy was performed due to the patient's history. Scope was then withdrawn and there was a few scattered diverticuli in the ascending colon. In the transverse colon there was a few diverticula seen. A's sessile polyp was seen this removed the forcep. Scope was then brought back the descending and sigmoid colon there was extensive diverticular changes. Scope was brought back the rectum and this appeared normal. Scope was withdrawn for patient.
[2018-03-15 08:09] VITALS: RESP 18
[2018-03-15 08:41] VITALS: BP 126/81; PULSE 58
== END 2018-03-15 08:55 | disposition home or self-care (01) ==
LOC: ORWHC2ENDO 06:41
PROVIDERS: ATTEND Surgery
DX: D12.3 Benign neoplasm of transverse colon (principal); K57.30 Diverticulosis of large intestine without perforation or abscess without bleeding; K64.8 Other hemorrhoids; K64.4 Residual hemorrhoidal skin tags; J45.909 Unspecified asthma, uncomplicated; I25.10 Atherosclerotic heart disease of native coronary artery without angina pectoris; E11.9 Type 2 diabetes mellitus without complications; E78.5 Hyperlipidemia, unspecified; I10 Essential (primary) hypertension; M19.90 Unspecified osteoarthritis, unspecified site; L40.9 Psoriasis, unspecified; G47.30 Sleep apnea, unspecified; E07.9 Disorder of thyroid, unspecified; H91.92 Unspecified hearing loss, left ear; G25.81 Restless legs syndrome; Z98.84 Bariatric surgery status; Z95.1 Presence of aortocoronary bypass graft; Z79.84 Long term (current) use of oral hypoglycemic drugs; Z79.890 Hormone replacement therapy; Z79.899 Other long term (current) drug therapy; Z88.1 Allergy status to other antibiotic agents; Z88.8 Allergy status to other drugs, medicaments and biological substances; Z90.49 Acquired absence of other specified parts of digestive tract; Z98.51 Tubal ligation status; Z87.891 Personal history of nicotine dependence
CPT/HCPCS: 88305; 45380; J1610; J2704

== ENCOUNTER → 2018-05-20 | Outpatient (CLI) | payer MEDICARE, OTHER ==
--- NOTE | 2018-05-20 15:29 | CT ---
EXAMINATION TYPE: CT abdomen pelvis w con DATE OF EXAM: 05/20/2018 HISTORY: Abdominal pain, diarrhea CT DLP: 1585mGycm Automated Exposure Control for Dose Reduction was Utilized. CONTRAST: CT scan of the abdomen and pelvis is performed with IV Contrast, patient injected with 100 ml mL of I sovue 300. COMPARISON: 07/21/2011 and 01/18/2018. FINDINGS: LUNG BASES: No significant abnormality is appreciated. Median sternotomy wires are partially visualiz ed. LIVER/GB: No significant abnormality is appreciated. Gallbladder is surgically absent. PANCREAS: No significant abnormality is seen. SPLEEN: No significant abnormality is seen. ADRENALS: There is nodular thickening of both adrenal glands, similar to exams dating back to 2010.. KIDNEYS: Bilateral renal cysts are again seen. BOWEL: Similar to the exam of 01/18/2018 there is diffuse thickening of the terminal ileum and cecum wi th numerous enlarged matted lymph nodes in the right lower quadrant measuring up to 1.8 cm. No gross appreciable fluid collection is seen to suggest associated abscess. Appendix is not visualized. Remai nder of the colon and small bowel appear unaffected. Numerous colonic diverticula are incidentally se en. Postsurgical changes of a prior Yifan fundoplication are seen with small residual hernia suspect ed. UTERUS/ADNEXA: No gross abnormality seen. OSSEOUS STRUCTURES: Multilevel degenerative changes of the spine are mild to moderate. Sacroiliac emir nt sclerosis associated with inflammatory bowel disease is overall symmetric. Moderate right and mild left femoral acetabular arthropathy are present. OTHER: Moderate atherosclerosis is seen of the abdominal aorta and its branches. IMPRESSION: Acute on chronic terminal ileitis of inflammatory bowel disease/Crohn's disease with exte nsive adenopathy in the right lower quadrant and surrounding phlegmonous changes of the cecum and ter kati ileum. No appreciable abscess. Appendix is not visualized.
== END | disposition home or self-care (01) ==
LOC: RADCTMAIN 11:24
PROVIDERS: ATTEND Surgery
DX: K52.89 Other specified noninfective gastroenteritis and colitis (principal); K50.80 Crohn's disease of both small and large intestine without complications
CPT/HCPCS: 82565; 84520; 74177; 36415; Q9967

== ENCOUNTER 2018-06-01 08:27 | Day surgery (SDC) | payer MEDICARE, OTHER ==
[2018-05-30 09:54] VITALS: BMI 45.8
[~2018-06-01 08:27] MED LIST changes: +LIDOCAINE 1% 20 ML VIAL (10MG/ML) FOR IV START INTRADERMA PRN
[2018-06-01] MEDS ORDERED: LIDOCAINE 1% 20 ML VIAL (10MG/ML) FOR IV START INTRADERMA ONE (09:00)
[2018-06-01 09:09] VITALS: TEMP 97.8
[2018-06-01 09:09] LABS: Glucose,Whole Blood 102 mg/dL (75-99)
[2018-06-01] MEDS ORDERED: GLUCAGON 1 MG/ML VIAL ONE (09:59)
[2018-06-01] MEDS ORDERED: PROPOFOL 10 MG/ML 20 ML VIAL IV ONE (09:59)
[2018-06-01] MEDS ORDERED: LIDOCAINE 1% INJ 10MG/ML (20 ML MDV) ONE (09:59)
--- NOTE | 2018-06-01 10:03 | P.GSHP ---
History of Present Illness H&P Date: 06/01/18 Chief Complaint: Right lower quadrant pain Assess 68-year-old female who's had with right lower quadrant pain. Her recent CAT scan was suspicious for inflammatory bowel disease. Patient rents today for colonoscopy evaluate the cecum. Past Medical History Past Medical History: Asthma, Coronary Artery Disease (CAD), Diabetes Mellitus, Hearing Disorder / Deafness, Hyperlipidemia, Hypertension, Musculoskeletal Disorder, Osteoarthritis (OA), Skin Disorder, Sleep Apnea/CPAP/BIPAP, Thyroid Disorder Additional Past Medical History / Comment(s): deaf left ear. VERTIGO, PSORIASIS , NO C-PAP, USES CANE OR WALKER PRN, restless leg History of Any Multi-Drug Resistant Organisms: None Reported Past Surgical History: Bariatric Surgery, Cholecystectomy, Coronary Bypass/CABG , Heart Catheterization, Hernia Repair, Joint Replacement, Orthopedic Surgery, Tubal Ligation Additional Past Surgical History / Comment(s): KNEE ARTHROSCOPY,CABG x1 (1992), LAP BAND AND REMOVAL. GASTRIC BYPASS 2012, UMBILICAL HERNIA REPAIR, KRISTOPHER. SHOULDER SURG, rt shoulder rotator cuff KRISTOPHER CARPAL TUNNEL. KRISTOPHER EAR SURG WITH TUBES, TOTAL LEFT KNEE, RIGHT EAR SURG, R shoulder surgery, lt wrist surgery Past Anesthesia/Blood Transfusion Reactions: Motion Sickness Additional Past Anesthesia/Blood Transfusion Reaction / Comment(s): VERTIGO Smoking Status: Former smoker - Past Family History Sister(s) Family Medical History: Cancer Additional Family Medical History / Comment(s): LUNG CA Medications and Allergies Home Medications Medication Instructions Recorded Confirmed Type Carvedilol [Coreg] 3.125 mg PO BID 03/21/14 06/01/18 History Fluticasone/Salmeterol [Advair 1 puff INHALATION RT-BID PRN 03/21/14 06/01/18 History 250-50 Diskus] Lisinopril [Zestril] 2.5 mg PO HS 03/21/14 06/01/18 History Simvastatin [Zocor] 80 mg PO HS 03/21/14 06/01/18 History Zafirlukast [Accolate] 20 mg PO BID 03/21/14 06/01/18 History Ergocalciferol [Vitamin D2 50,000 unit PO MO 10/09/14 06/01/18 History (DRISDOL)] Levothyroxine Sodium [Synthroid] 150 mcg PO QAM 10/09/14 06/01/18 History Aspirin 81 mg PO DAILY 08/06/15 06/01/18 History Glimepiride [Amaryl] 1 mg PO AC-BRKFST 10/08/15 06/01/18 History Diphenoxylate HCl/Atropine 2 tab PO QID PRN 03/30/16 06/01/18 History [Lomotil] Calcium Carbonate [Calcium] 600 mg PO DAILY 01/07/17 06/01/18 History Cyanocobalamin (Vitamin B-12) 1,000 mcg PO DAILY 01/07/17 06/01/18 History [Vitamin B-12] Multivit with Calcium,Iron,Min 1 tab PO DAILY 08/04/17 06/01/18 History [Women's Multivitamin] rOPINIRole HCL [Requip] 0.5 mg PO HS 08/04/17 06/01/18 History ALPRAZolam [Xanax] 0.5 mg PO HS 03/10/18 06/01/18 History Hydrocodone/Acetaminophen 1 tab PO Q6H 03/10/18 06/01/18 History [Hydrocodon-Acetaminophn 10-325] Meclizine [Antivert] 25 mg PO TID 03/10/18 06/01/18 History Allergies Allergy/AdvReac Type Severity Reaction Status Date / Time allopurinol Allergy Itching Verified 06/01/18 08:41 cephalexin monohydrate Allergy Itching Verified 06/01/18 08:41 [From Keflex] clindamycin Allergy Itching Verified 06/01/18 08:41 NSAIDS (Non-Steroidal AdvReac Unknown STATES NO Verified 06/01/18 08:41 Anti-Inflamma NSAIDS DUE TO GASTRIC BYPASS ciprofloxacin [From Cipro] AdvReac severe Verified 06/01/18 08:41 heartburn doxycycline AdvReac severe Verified 06/01/18 08:41 heartburn Surgical - Exam Vital Signs Temp Pulse Resp BP Pulse Ox 97.8 F 66 20 126/58 96 06/01/18 09:07 06/01/18 09:07 06/01/18 09:07 06/01/18 09:07 06/01/18 09:07 - General well developed, no distress - Eyes PERRL - ENT normal pinna - Neck no masses - Respiratory normal expansion - Cardiovascular Rhythm: regular - Abdomen Mild right lower quadrant pain Abdomen: soft, non tender Results - Labs Abnormal Lab Results - Last 24 Hours (Table) 06/01/18 Range/Units 09:03 POC Glucose (mg/dL) 102 H (75-99) mg/dL Assessment and Plan Assessment: Right lower quadrant pain. CAT scan suspicious for a plantar bowel disease We'll perform the colonoscopy..
[2018-06-01 10:21] VITALS: RESP 18
[2018-06-01 10:34] VITALS: BP 117/55; PULSE 56
--- NOTE | 2018-06-01 11:44 | P.OP ---
Date of Procedure: 06/01/18 Preoperative Diagnosis: Right lower quadrant pain Inflamed or bowel disease Postoperative Diagnosis: Normal colon to buttock flexure Large amount of retained stool Procedure(s) Performed: Colonoscopy Anesthesia: MAC Surgeon: Mannie Tanner Pathology: none sent Condition: stable Disposition: PACU Description of Procedure: The patient's placed on the endoscopy table in the lateral position. She received IV sedation. Digital rectal exam was performed which revealed no abnormalities. The flexible colonoscope was then placed patient anus passed with colon. The scope passed down splenic flexure secondary to poor colonic prep. There was a large amount of liquid stool in the colon. Scope was withdrawn. The remainder the descending; appeared normal however the view was quite limited due to the poor colonic prep. Scope was then brought back the rectum this appeared normal scope was withdrawn for patient. Additional CC's: Padilla Santiago
== END 2018-06-01 10:55 | disposition home or self-care (01) ==
LOC: ORWHC2ENDO 08:27
PROVIDERS: ATTEND Surgery
DX: R10.31 Right lower quadrant pain (principal); K52.9 Noninfective gastroenteritis and colitis, unspecified; J45.909 Unspecified asthma, uncomplicated; I25.10 Atherosclerotic heart disease of native coronary artery without angina pectoris; I10 Essential (primary) hypertension; Z87.891 Personal history of nicotine dependence; E11.9 Type 2 diabetes mellitus without complications; Z79.84 Long term (current) use of oral hypoglycemic drugs; E78.5 Hyperlipidemia, unspecified; Z95.1 Presence of aortocoronary bypass graft; H91.90 Unspecified hearing loss, unspecified ear; M19.90 Unspecified osteoarthritis, unspecified site; G47.30 Sleep apnea, unspecified; Z79.890 Hormone replacement therapy; Z79.899 Other long term (current) drug therapy; Z79.82 Long term (current) use of aspirin; Z88.6 Allergy status to analgesic agent; Z88.1 Allergy status to other antibiotic agents; Z88.8 Allergy status to other drugs, medicaments and biological substances
CPT/HCPCS: 45378; J1610; J2001; J2704

== ENCOUNTER → 2018-06-08 | Outpatient (CLI) | payer MEDICARE, OTHER ==
[2018-06-08 10:55] LABS: HCT 37.5 % (34.0-46.0); Hypochromasia Slight; MCH 30.1 pg (25.0-35.0); MCHC 31.9 g/dL (31.0-37.0); MCV 94.4 fL (80.0-100.0); Platelet Count 428 k/uL (150-450); RBC 3.97 m/uL (3.80-5.40); WBC 8.1 k/uL (3.8-10.6)
== END | disposition home or self-care (01) ==
LOC: LABPAT 10:04
PROVIDERS: ATTEND Surgery
DX: Z01.812 Encounter for preprocedural laboratory examination (principal); K52.9 Noninfective gastroenteritis and colitis, unspecified
CPT/HCPCS: 36415; 80051; 85027; 86850; 86900; 86901

== ENCOUNTER 2018-06-16 07:30 | Inpatient (IN) | payer MEDICARE, OTHER ==
[~2018-06-16 07:30] MED LIST changes: +DEXAMETHASONE SOD PHOSPHATE 10 MG/ML 1 ML VIAL IV ONE; +HEPARIN SODIUM,PORCINE 5,000 UNIT/ML 1 ML VIAL SQ ONE; +HYDROmorphone 0.5 MG/0.5 ML SYRINGE IVP PRN; -LACTATED RINGERS 1,000 ML IV SCH; -LIDOCAINE 1% 20 ML VIAL (10MG/ML) FOR IV START INTRADERMA PRN; +ONDANSETRON 4 MG/2 ML VIAL IVP ONE
[2018-06-16] MEDS ORDERED: ACETAMINOPHEN TAB 500 MG TAB PO STA (08:33)
[2018-06-16] MEDS ORDERED: ALVIMOPAN 12 MG CAPSULE PO STA (08:33)
[2018-06-16] MEDS ORDERED: MELOXICAM 7.5 MG TAB PO STA (08:34)
[2018-06-16 08:35] LABS: Glucose,Whole Blood 95 mg/dL (75-99)
[2018-06-16] MEDS ORDERED: MIDAZOLAM 2 MG/2 ML VIAL IV ONE (08:41)
[2018-06-16] MEDS: fentaNYL (PF) 50 MCG/ML 2 ML AMP IV PRN ×5 (08:42→12:38)
--- NOTE | 2018-06-16 08:44 | P.GSHP ---
History of Present Illness H&P Date: 06/16/18 Chief Complaint: Right lower quadrant pain This is a 68-year-old female who's had chronic issues right lower quadrant pain. Patient's had a CAT scan which shows significant inflammation of the right colon and terminal ileum. She presents today for laparoscopic right colectomy. Patient is aware of the risk of conversion to the open procedure. The patient has had significant pain. Patient is aware that this may be Crohn' s disease. Patient did not want to undergo medical therapy for Crohn's disease. Past Medical History Past Medical History: Asthma, Coronary Artery Disease (CAD), Diabetes Mellitus, Hearing Disorder / Deafness, Hyperlipidemia, Hypertension, Musculoskeletal Disorder, Osteoarthritis (OA), Skin Disorder, Sleep Apnea/CPAP/BIPAP, Thyroid Disorder Additional Past Medical History / Comment(s): Deaf Left Ear. VERTIGO OCC. HX PSORIASIS. NO C-PAP NEEDED. OCC USES CANE OR WALKER PRN. RLS. HX FALL 2016, HAS PAIN IN RT SHOULDER, NECK - GOING TO PT. HX GASTRIC BYPASS. BORDERLINE CMP. HX ABD PAIN ON/OFF ON RT SIDE FOR PAST MONTH. History of Any Multi-Drug Resistant Organisms: None Reported Past Surgical History: Bariatric Surgery, Cholecystectomy, Coronary Bypass/CABG , Heart Catheterization, Hernia Repair, Joint Replacement, Orthopedic Surgery, Tubal Ligation Additional Past Surgical History / Comment(s): KNEE ARTHROSCOPY, TOTAL LT KNEE. CABG x1 (1992). LAP BAND AND REMOVAL. GASTRIC BYPASS 2012. UMBILICAL HERNIA REPAIR. KRISTOPHER. SHOULDER SURG, Rt shoulder rotator cuff. NASAL FX REPAIR. KRISTOPHER CTR; ORIF LT WRIST 09/2017; REMOVED PLATE 03/2018. BMT; RT EAR SURG. COLONOSCOPY 06/01/18. Past Anesthesia/Blood Transfusion Reactions: Family History of Problems w/ Anesthesia, Motion Sickness Additional Past Anesthesia/Blood Transfusion Reaction / Comment(s): VERTIGO. SISTER HAD HARD TIME WAKING YEARS AGO. Smoking Status: Former smoker - Past Family History Sister(s) Family Medical History: Cancer Additional Family Medical History / Comment(s): LUNG CA Medications and Allergies Home Medications Medication Instructions Recorded Confirmed Type Carvedilol [Coreg] 3.125 mg PO BID 03/21/14 06/16/18 History Fluticasone/Salmeterol [Advair 1 puff INHALATION RT-BID PRN 03/21/14 06/16/18 History 250-50 Diskus] Lisinopril [Zestril] 2.5 mg PO HS 03/21/14 06/16/18 History Simvastatin [Zocor] 80 mg PO HS 03/21/14 06/16/18 History Zafirlukast [Accolate] 20 mg PO BID 03/21/14 06/16/18 History Ergocalciferol [Vitamin D2 50,000 unit PO MO 10/09/14 06/16/18 History (DRISDOL)] Levothyroxine Sodium [Synthroid] 150 mcg PO QAM 10/09/14 06/16/18 History Aspirin 81 mg PO DAILY 08/06/15 06/16/18 History Glimepiride [Amaryl] 1 mg PO AC-BRKFST 10/08/15 06/16/18 History Diphenoxylate HCl/Atropine 2 tab PO QID PRN 03/30/16 06/16/18 History [Lomotil] Calcium Carbonate [Calcium] 600 mg PO DAILY 01/07/17 06/16/18 History Cyanocobalamin (Vitamin B-12) 1,000 mcg PO DAILY 01/07/17 06/16/18 History [Vitamin B-12] Multivit with Calcium,Iron,Min 1 tab PO DAILY 08/04/17 06/16/18 History [Women's Multivitamin] rOPINIRole HCL [Requip] 0.5 mg PO HS 08/04/17 06/16/18 History ALPRAZolam [Xanax] 0.5 mg PO HS 03/10/18 06/16/18 History Hydrocodone/Acetaminophen 1 tab PO Q6H 03/10/18 06/16/18 History [Hydrocodon-Acetaminophn 10-325] Meclizine [Antivert] 25 mg PO TID PRN 03/10/18 06/13/18 History Menthol [Biofreeze] 1 applic TOPICAL DIRECTED PRN 06/13/18 06/16/18 History Allergies Allergy/AdvReac Type Severity Reaction Status Date / Time allopurinol Allergy Itching Verified 06/16/18 08:15 cephalexin monohydrate Allergy Itching Verified 06/16/18 08:15 [From Keflex] clindamycin Allergy Itching Verified 06/16/18 08:15 NSAIDS (Non-Steroidal AdvReac Unknown STATES NO Verified 06/16/18 08:15 Anti-Inflamma NSAIDS DUE TO GASTRIC BYPASS ciprofloxacin [From Cipro] AdvReac severe Verified 06/16/18 08:15 heartburn doxycycline AdvReac severe Verified 06/16/18 08:15 heartburn Surgical - Exam Vital Signs Temp Pulse Resp BP Pulse Ox 97.7 F 61 81 H 118/54 98 06/16/18 08:13 06/16/18 08:13 06/16/18 08:13 06/16/18 08:13 06/16/18 08:13 - General well developed - Eyes PERRL - ENT normal pinna - Neck no masses - Respiratory normal expansion - Cardiovascular Rhythm: regular - Abdomen Abdomen: soft, non tender Assessment and Plan Assessment: Right lower quadrant pain. Right-sided colitis We will perform laparoscopic right colectomy.
[2018-06-16] MEDS ORDERED: LACTATED RINGERS 1,000 ML IV ONE ×2 (08:45→11:07)
[2018-06-16] MEDS ORDERED: MIDAZOLAM 2 MG/2 ML VIAL ONE (09:31)
[2018-06-16] MEDS ORDERED: NEOSTIGMINE 1 MG/ML 10 ML VIAL ONE (09:31)
[2018-06-16] MEDS ORDERED: GLYCOPYRROLATE 0.2 MG/ML 2 ML VIAL ONE (09:31)
[2018-06-16] MEDS ORDERED: SUCCINYLCHOLINE CHLORIDE 100 MG/5 ML SYR IV ONE (09:31)
[2018-06-16] MEDS ORDERED: ROCURONIUM BROMIDE 10 MG/ML 10 ML VIAL IV ONE (09:31)
[2018-06-16] MEDS ORDERED: LIDOCAINE 1% INJ 10MG/ML (20 ML MDV) ONE (09:31)
[2018-06-16] MEDS ORDERED: MORPHINE SULFATE 10 MG/ML SYRINGE ONE (09:31)
[2018-06-16] MEDS ORDERED: KETOROLAC 30 MG/ML 1 ML VIAL ONE (09:31)
[2018-06-16] MEDS ORDERED: fentaNYL (PF) 50 MCG/ML 2 ML AMP ONE (09:31)
[2018-06-16] MEDS ORDERED: PROPOFOL 10 MG/ML 20 ML VIAL IV ONE (09:31)
[2018-06-16] MEDS ORDERED: PHENYLEPHRINE-0.9% NACL SYG 1 MG/10 ML SYRINGE ONE (09:31)
[2018-06-16] MEDS ORDERED: BUPIVACAIN-EPI 0.25%-1:200,000 30 ML VIAL SQ ONE (10:02)
[2018-06-16] MEDS ORDERED: NALOXONE 0.4 MG/ML 1 ML VIAL IV PRN (10:30)
[2018-06-16] MEDS ORDERED: ONDANSETRON 4 MG/2 ML VIAL IVP PRN (11:34)
[2018-06-16] MEDS ORDERED: METOCLOPRAMIDE 5 MG/ML 2 ML VIAL IVP PRN (11:34)
[2018-06-16] MEDS ORDERED: HYDROmorphone 1 MG/ML 1 ML SYRINGE IVP PRN (11:34)
--- NOTE | 2018-06-16 11:55 | P.OP ---
Date of Procedure: 06/16/18 Preoperative Diagnosis: Right colon mass Postoperative Diagnosis: Right colon mass deferred pathology Procedure(s) Performed: Laparoscopic right colectomy Anesthesia: FELIX Surgeon: Mannie Tanner Estimated Blood Loss (ml): 40 Pathology: other (Ileocolectomy) Condition: stable Disposition: PACU Description of Procedure: The patient's placed on the operating table in the supine position. She received general anesthesia. Her abdomen was prepped and draped in the usual sterile fashion. Using an 11 blade a small skin incision was made in the left upper quadrant. I then using the Veress needle the peritoneal cavity was entered. The abdomen was then insufflated after adequate insufflation a 5 mm optical trocar was placed under direct visualization in the left upper quadrant. Next a 5 ohmmeter trocar was placed in the periumbilical area and another 5 mm trochars placed in the midline epigastric position. There were adhesions in the right abdominal wall and these were lysed with sharp dissection. The right colon was visualized. There appeared to be inflammatory changes the right colon the mesentery was quite thickened. At this point the right colon was mobilized by dividing the white line of Toldt's. Using Harmonic scissors the white line of Toldt was divided. The ileum and right colon was mobilized and then the hepatic flexure was mobilized using the Harmonic scissors. At this point the trochars withdrawn. A skin incision was made at the umbilicus. And then the right colon was brought up in the wound. The terminal ileum was transected with a GI stapler. And then the proximal transverse colon was transected with a GI stapler. Using the Enseal device the mesentery of the bowel was divided. A [id number] functional end-to-end stapled anastomosis was then created using the ROXIE and TA staplers. 3-0 GI silk sutures placed as a crotch stitch in the staple line. The abdomen was irrigated there is no bleeding seen. The fascia was closed with looped #1 PDS suture. Skin was closed melquiades. The patient tolerated the procedure well and was sent was sent to recovery room stable condition.
[2018-06-16 12:38] LABS: Anion Gap 9 mmol/L; Basophils % (A) 0 %; Blood Urea Nitrogen 14 mg/dL (7-17); Calcium 9.3 mg/dL (8.4-10.2); Carbon Dioxide 22 mmol/L (22-30); Chloride 107 mmol/L (98-107); Eosinophils # (A) 0.1 k/uL (0-0.7); Eosinophils % (A) 1 %; Glucose 169 mg/dL (74-99); HCT 38.4 % (34.0-46.0); HGB 11.8 gm/dL (11.4-16.0); Hypochromasia Slight; Lymphocytes # (A) 0.6 k/uL (1.0-4.8); Lymphocytes % (A) 7 %; MCH 29.3 pg (25.0-35.0); MCHC 30.7 g/dL (31.0-37.0); MCV 95.5 fL (80.0-100.0); Mean Platelet Volume 7.2; Monocytes # (A) 0.2 k/uL (0-1.0); Monocytes % (A) 2 %; Neutrophils # (A) 8.1 k/uL (1.3-7.7); Neutrophils % (A) 90 %; Platelet Count 340 k/uL (150-450); Potassium 4.1 mmol/L (3.5-5.1); RBC 4.02 m/uL (3.80-5.40); RDW 14.1 % (11.5-15.5); Sodium 138 mmol/L (137-145)
[2018-06-16] MEDS: ROPIVACAINE 250 MG, HYDROMORPHONE (PF) 5 MG in SODIUM CHLORIDE 0.9% 200 ML EPIDURAL PRN (14:13)
[2018-06-16 14:25] VITALS: BMI 43.7
[2018-06-16] MEDS: D5-0.45% NACL WITH KCL 20MEQ/L 1,000 ML IV SCH ×2 (15:08→23:23)
[2018-06-16] MEDS: LACTATED RINGERS 1,000 ML IV SCH ×2 (15:12→17:16)
[2018-06-16 17:13] LABS: Glucose,Whole Blood 213 mg/dL (75-99)
[2018-06-16] MEDS: CARVEDILOL 3.125 MG TAB PO SCH (17:15)
[2018-06-16] MEDS: INSULIN ASPART 100 UNIT/ML 1 ML 10 ML VIAL SQ SCH ×2 (17:38→21:34)
[2018-06-16 20:10] LABS: Glucose,Whole Blood 195 mg/dL (75-99)
[2018-06-16] MEDS ORDERED: LISINOPRIL 2.5 MG TAB PO SCH (21:00)
[2018-06-16] MEDS: ALPRAZolam 0.5 MG TAB PO SCH (21:35)
[2018-06-16] MEDS: ATORVASTATIN 40 MG TAB PO SCH (21:35)
[2018-06-16] MEDS: FAMOTIDINE 20 MG/2 ML VIAL IV SCH (21:35)
--- NOTE | 2018-06-16 23:47 | CONS ---
CONSULTATION CHIEF COMPLAINT: 68-year-old white female status post laparoscopic lymph node repair and possible removal of appendix area per Dr. Tanner. She is stapled up. She is not complaining of any chest pain or shortness of breath. She is status post terminal ileum transection with melquiades and await pathology. Home medicines was reviewed. She is having no chest pain. No shortness of breath. No lightheadedness, dizziness, syncope. Labs show normal white count, sodium, potassium. REVIEW OF SYSTEMS: 14 point review of systems negative. PHYSICAL EXAM: Temp 97.4, pulse 60s to 70s, blood pressure low 100s to 170s over 50s to 80s. Cardiovascular: She is on 3 L nasal cannula. Cardiovascular S1, S2. LUNGS: Transmitted upper sounds. GI soft. Hematology negative Homans. Psych fair mood and affect. NEUROLOGIC: Alert and orient x3. ASSESSMENT AND PLAN: 1. Status post terminal ileum resection. 2. Dyslipidemia. 3. Anxiety. 4. Hypertension. 5. Diabetes mellitus type 2. 6. Continue home medications. 7. Hypothyroidism medicine. 8. Blood pressure medicine. 9. Restless legs syndrome medicine. 10.Followup tomorrow. Her pain is fairly stable at this time. MMODL / IJN: [id number] /
[2018-06-17] MEDS: BENZOCAINE/MENTHOL LOZENG 1 EACH LOZENGE MUCOUS MEM PRN (01:57)
[2018-06-17 04:06] LABS: Hemoglobin A1C 5.9 % (4.0-6.0)
[2018-06-17] MEDS: LEVOTHYROXINE 75 MCG TAB PO SCH (06:04)
[2018-06-17 07:29] LABS: Glucose,Whole Blood 136 mg/dL (75-99)
[2018-06-17] MEDS ORDERED: LACTATED RINGERS 1,000 ML IV ONE (08:30)
--- NOTE | 2018-06-17 09:52 | PN ---
PROGRESS NOTE SUBJECTIVE: A 68-year-old white female admitted with colitis. She is status post terminal ileum repair. She has incisional pain. Otherwise, she is not short of breath, no chest pain. CARDIOVASCULAR: S1, S2. LUNGS: Clear. GI is incisional pain. Wound looks good. HEMATOLOGIC: Negative Homans. ASSESSMENT: Status post terminal ileum removal for terminal ileum inflammation. Multiple medical conditions. Continue on current treatment and possible discharge home today. MMODL / IJN: [id number] /
[2018-06-17] MEDS: GLIMEPIRIDE 1 MG TAB PO SCH (10:48)
[2018-06-17] MEDS: D5-0.45% NACL WITH KCL 20MEQ/L 1,000 ML IV SCH ×3 (10:48→20:34)
[2018-06-17] MEDS: INSULIN ASPART 100 UNIT/ML 1 ML 10 ML VIAL SQ SCH ×4 (10:49→20:58)
[2018-06-17] MEDS: FAMOTIDINE 20 MG/2 ML VIAL IV SCH ×2 (10:49→21:55)
[2018-06-17] MEDS: ALVIMOPAN 12 MG CAPSULE PO SCH ×2 (10:49→21:54)
[2018-06-17] MEDS: diphenhydrAMINE 25 MG CAP PO PRN (11:18)
[2018-06-17 12:22] LABS: Glucose,Whole Blood 103 mg/dL (75-99)
--- NOTE | 2018-06-17 12:40 | P.PN ---
Subjective Progress Note Date: 06/17/18 68-year-old female seen postop day 1 done on June 16 laparoscopic right colectomy for right colon mass Epidural in place per anesthesia for pain control reportedly experiencing some itching. No skin rash noted. Indwelling Diaz catheter in place. prevena wound system in place reports no nausea vomiting tolerating bariatric clear liquid diet surgical dressing dry No labs pending Postop June 16 laparoscopic right colectomy for a right colon mass Objective - Vital Signs Vital signs: Vital Signs Temp 97.6 F 06/17/18 07:00 Pulse 60 06/17/18 07:00 Resp 16 06/17/18 10:11 BP 98/57 06/17/18 07:00 Pulse Ox 98 06/17/18 07:00 Intake & Output 06/16/18 06/17/18 06/17/18 18:59 06:59 18:59 Intake Total 1950 1375 Output Total 95 750 Balance 1855 625 Weight 112 kg Intake: IV 1950 Intake, IV Titration 1375 Amount D5-0.45% NaCl with KCl 1375 20Meq/l 1,000 ml @ 125 mls/hr IV .Q8H [facility] Rx#: [id number] Output: Urine 65 750 Uretheral (Diaz) 750 Estimated Blood Loss 30 Other: Voiding Method Indwelling Catheter Indwelling Catheter Indwelling Catheter - Exam Physical exam 68-year-old female sitting up in bed states pain medication effective for pain control reports having an itchy sensation to Back and lower legs no rash seen Lungs adequate air movement bilaterally Heart S1-S2 audible regular Abdomen epidural in place.prevena wound system in place surgical dressing dry indwelling Diaz catheter in place reports no nausea no vomiting tolerating bariatric clear diet Extremities Venodyne's on to the bilateral lower extremities - Labs CBC & Chem 7: 06/16/18 12:04 06/16/18 12:04 Labs: Abnormal Lab Results - Last 24 Hours (Table) 06/16/18 06/16/18 06/16/18 Range/Units 12:04 12:04 17:02 MCHC 30.7 L (31.0-37.0) g/dL Neutrophils # 8.1 H (1.3-7.7) k/uL Lymphocytes # 0.6 L (1.0-4.8) k/uL Glucose 169 H (74-99) mg/dL POC Glucose (mg/dL) 213 H (75-99) mg/dL 06/16/18 06/17/18 06/17/18 Range/Units 19:58 07:27 12:21 MCHC (31.0-37.0) g/dL Neutrophils # (1.3-7.7) k/uL Lymphocytes # (1.0-4.8) k/uL Glucose (74-99) mg/dL POC Glucose (mg/dL) 195 H 136 H 103 H (75-99) mg/dL Assessment and Plan Assessment: Impression Postop laparoscopic right colectomy for a right colon mass done on June 16 History of chronic right lower quadrant pain with a CAT scan done prior to admission showed significant inflammation of the right colon and terminal ileum Known coronary artery disease History of gastric bypass Sleep apnea with CPAP therapy Plan Epidural per anesthesia for pain control defer to Keep indwelling Diaz catheter in until epidural catheters removed Pain control Continue postop surgical care Increase activity Continue bariatric clear liquid diet Continue wound VAC system as ordered DVT and GI prophylaxis The above impression and plan of care have been discussed and directed by signing physician. Hilaria Vasquez nurse practitioner acting as scribe for signing physician.
[2018-06-17 17:03] LABS: Glucose,Whole Blood 119 mg/dL (75-99)
[2018-06-17] MEDS: LACTATED RINGERS 1,000 ML IV SCH (17:12)
[2018-06-17] MEDS: CARVEDILOL 3.125 MG TAB PO SCH (17:13)
--- NOTE | 2018-06-17 19:05 | P.PN ---
Progress Note - Text Progress Note Date: 06/17/18 Postoperative day #1 status post , right colectomy epidural catheter placed for postoperative analgesia, patient doing well epidural site okay, patient currently on combination of epidural infusion solution of Ropivacaine 0.0625% and Dilaudid 20 g per mL the infusion rate at 8 ml per hour , patient had no motor deficit epidural site okay , vital signs stable ,VAS 4 /10 , Patient complaining of severe itching, I will order Benadryl 25 mg IV every 6 hours when necessary Assessment and plan= post operative day # 1 patient doing well ,pain adequately controlled , there is no anesthesia related complications
[2018-06-17 20:35] LABS: Glucose,Whole Blood 92 mg/dL (75-99)
[2018-06-17] MEDS: ROPIVACAINE 250 MG, HYDROMORPHONE (PF) 5 MG in SODIUM CHLORIDE 0.9% 200 ML EPIDURAL PRN (20:36)
[2018-06-17] MEDS: diphenhydrAMINE 50 MG/ML 1 ML VIAL IVP PRN (20:43)
[2018-06-17] MEDS: ALPRAZolam 0.5 MG TAB PO SCH (21:54)
[2018-06-17] MEDS: ATORVASTATIN 40 MG TAB PO SCH (21:54)
[2018-06-18] MEDS: LEVOTHYROXINE 75 MCG TAB PO SCH (05:45)
[2018-06-18] MEDS: D5-0.45% NACL WITH KCL 20MEQ/L 1,000 ML IV SCH ×3 (06:03→22:49)
[2018-06-18] MEDS: BENZOCAINE/MENTHOL LOZENG 1 EACH LOZENGE MUCOUS MEM PRN ×2 (06:04→14:11)
[2018-06-18] MEDS: diphenhydrAMINE 50 MG/ML 1 ML VIAL IVP PRN ×3 (06:04→22:47)
[2018-06-18 07:00] LABS: Glucose,Whole Blood 99 mg/dL (75-99)
[2018-06-18] MEDS: INSULIN ASPART 100 UNIT/ML 1 ML 10 ML VIAL SQ SCH ×4 (09:31→22:13)
[2018-06-18] MEDS: FAMOTIDINE 20 MG/2 ML VIAL IV SCH ×2 (09:32→22:49)
[2018-06-18] MEDS: GLIMEPIRIDE 1 MG TAB PO SCH (09:32)
[2018-06-18] MEDS: ALVIMOPAN 12 MG CAPSULE PO SCH ×2 (09:32→22:48)
[2018-06-18 11:46] LABS: Glucose,Whole Blood 92 mg/dL (75-99)
--- NOTE | 2018-06-18 12:25 | P.PN ---
Subjective Progress Note Date: 06/18/18 Principal diagnosis: Right colectomy Patient doing well today. She is postoperative day 2 from recent laparoscopic right colectomy. She has already had bowel movements. Pain is well- controlled. No labs were ordered. Objective - Vital Signs Vital signs: Vital Signs Temp 97.8 F 06/18/18 07:00 Pulse 58 L 06/18/18 07:00 Resp 16 06/18/18 09:24 BP 106/65 06/18/18 07:00 Pulse Ox 98 06/18/18 07:00 Intake & Output 06/17/18 06/18/18 06/18/18 18:59 06:59 18:59 Intake Total 3230 802.683 Output Total 2800 1700 Balance 430 -897.317 Intake: Intake, IV Titration 2500 212.683 Amount D5-0.45% NaCl with KCl 1500 20Meq/l 1,000 ml @ 125 mls/hr IV .Q8H [facility] Rx#: [id number] Lactated Ringers 1,000 ml 1000 @ 999 mls/hr IV .Q1H1M ONE Rx#:[id number] Ropivacaine 250 mg 212.683 Hydromorphone (Pf) 5 mg In Sodium Chloride 0.9% 200 ml @ Per Protocol EPIDURAL .Q0M PRN Rx#: [id number] Oral 730 590 Output: Urine 2800 1700 Uretheral (Diaz) 1200 Other: Voiding Method Indwelling Catheter Indwelling Catheter Indwelling Catheter # Bowel Movements 1 - Exam Abdomen: Soft, nondistended, dressings clean and dry, minimal tenderness - Labs CBC & Chem 7: 06/16/18 12:04 06/16/18 12:04 Labs: Abnormal Lab Results - Last 24 Hours (Table) 06/17/18 Range/Units 16:44 POC Glucose (mg/dL) 119 H (75-99) mg/dL Assessment and Plan Plan: Increase activity levels. Check labs. Remove epidural catheter tomorrow. Add heparin
--- NOTE | 2018-06-18 16:48 | P.PN ---
Progress Note - Text Progress Note Date: 06/18/18 Postoperative day # 2, status post laparoscopic right colectomy epidural catheter placed for postoperative analgesia, patient doing well epidural site okay, patient currently on combination of epidural infusion solution of Ropivacaine 0.0625% and Dilaudid 20 g per mL the infusion rate at 8 ml per hour , patient was complaining of severe itching which is improved after we started IV Benadryl 25 mg every 6 hours ,patient had no motor deficit epidural site okay , vital signs stable ,VAS 3-4 /10 , Assessment and plan= post operative day #2 patient doing well ,pain well controlled , there is no anesthesia related complications
[2018-06-18] MEDS: LACTATED RINGERS 1,000 ML IV SCH (17:13)
[2018-06-18] MEDS: HEPARIN SODIUM,PORCINE 5,000 UNIT/ML 1 ML VIAL SQ SCH ×2 (17:14→23:10)
[2018-06-18 17:27] LABS: Glucose,Whole Blood 59 mg/dL (75-99)
[2018-06-18 17:42] LABS: Glucose,Whole Blood 54 mg/dL (75-99)
[2018-06-18 18:15] LABS: Glucose,Whole Blood 77 mg/dL (75-99)
[2018-06-18 20:03] LABS: Glucose,Whole Blood 60 mg/dL (75-99)
[2018-06-18 21:11] LABS: Glucose,Whole Blood 90 mg/dL (75-99)
[2018-06-18] MEDS ORDERED: FLUCONAZOLE 100 MG TAB PO ONE (22:44)
[2018-06-18] MEDS: ATORVASTATIN 40 MG TAB PO SCH (22:48)
[2018-06-18] MEDS: ALPRAZolam 0.5 MG TAB PO SCH (22:49)
[2018-06-18] MEDS: NYSTATIN 100,000 UNIT/GM OINT 30 GM TUBE TOPICAL SCH (23:10)
[2018-06-19] MEDS: diphenhydrAMINE 50 MG/ML 1 ML VIAL IVP PRN ×2 (03:49→09:52)
[2018-06-19] MEDS: D5-0.45% NACL WITH KCL 20MEQ/L 1,000 ML IV SCH ×2 (04:06→05:48)
[2018-06-19] MEDS: LEVOTHYROXINE 75 MCG TAB PO SCH (05:46)
[2018-06-19] MEDS: ROPIVACAINE 250 MG, HYDROMORPHONE (PF) 5 MG in SODIUM CHLORIDE 0.9% 200 ML EPIDURAL PRN (06:51)
[2018-06-19 07:00] LABS: Glucose,Whole Blood 90 mg/dL (75-99)
[2018-06-19 08:02] LABS: Basophils % (A) 0 %; Eosinophils # (A) 0.4 k/uL (0-0.7); Eosinophils % (A) 4 %; HCT 36.5 % (34.0-46.0); Hypochromasia Marked; Lymphocytes # (A) 1.3 k/uL (1.0-4.8); Lymphocytes % (A) 13 %; MCH 29.8 pg (25.0-35.0); MCHC 30.2 g/dL (31.0-37.0); MCV 98.8 fL (80.0-100.0); Monocytes # (A) 0.9 k/uL (0-1.0); Monocytes % (A) 8 %; Neutrophils # (A) 7.9 k/uL (1.3-7.7); Neutrophils % (A) 74 %; Platelet Count 191 k/uL (150-450); RDW 13.9 % (11.5-15.5); WBC 10.6 k/uL (3.8-10.6)
[2018-06-19 08:20] LABS: Anion Gap 5 mmol/L; Blood Urea Nitrogen 5 mg/dL (7-17); Calcium 9.5 mg/dL (8.4-10.2); Carbon Dioxide 25 mmol/L (22-30); Chloride 104 mmol/L (98-107); Glucose 78 mg/dL (74-99); Sodium 134 mmol/L (137-145)
[2018-06-19 08:50] LABS: Potassium 5.3 mmol/L (3.5-5.1)
[2018-06-19] MEDS: GLIMEPIRIDE 1 MG TAB PO SCH (09:51)
[2018-06-19] MEDS: INSULIN ASPART 100 UNIT/ML 1 ML 10 ML VIAL SQ SCH ×4 (09:51→21:17)
[2018-06-19] MEDS: HEPARIN SODIUM,PORCINE 5,000 UNIT/ML 1 ML VIAL SQ SCH ×2 (09:52→17:51)
[2018-06-19] MEDS: FAMOTIDINE 20 MG/2 ML VIAL IV SCH ×2 (09:52→21:12)
[2018-06-19] MEDS: BENZOCAINE/MENTHOL LOZENG 1 EACH LOZENGE MUCOUS MEM PRN (09:54)
[2018-06-19] MEDS: NYSTATIN 100,000 UNIT/GM OINT 30 GM TUBE TOPICAL SCH ×3 (10:01→21:17)
[2018-06-19] MEDS: ALVIMOPAN 12 MG CAPSULE PO SCH ×2 (10:02→21:12)
[2018-06-19 11:45] LABS: Glucose,Whole Blood 116 mg/dL (75-99)
--- NOTE | 2018-06-19 15:39 | P.PN ---
Subjective Progress Note Date: 06/19/18 Principal diagnosis: Right colectomy Patient doing well today. She is complaining of a achieved rash in the labial perineal region she is afebrile. White blood cell count 10.6. Potassium slightly elevated at 5.3. She is asking for more to eat. Continue to have bowel function. Objective - Vital Signs Vital signs: Vital Signs Temp 98.1 F 06/19/18 14:50 Pulse 65 06/19/18 14:50 Resp 16 06/19/18 07:37 BP 104/70 06/19/18 14:50 Pulse Ox 100 06/19/18 14:50 Intake & Output 06/18/18 06/19/18 06/19/18 19:59 06:59 18:59 Intake Total 2290 Output Total Balance 2290 Intake: Intake, IV Titration 1000 Amount D5-0.45% NaCl with KCl 1000 20Meq/l 1,000 ml @ 125 mls/hr IV .Q8H [facility] Rx#: [id number] Ropivacaine 250 mg Hydromorphone (Pf) 5 mg In Sodium Chloride 0.9% 200 ml @ Per Protocol EPIDURAL .Q0M PRN Rx#: [id number] Oral 1290 Output: Urine Uretheral (Diaz) Other: Voiding Method Indwelling Catheter # Bowel Movements 1 - Exam Abdomen: Soft, nondistended, dressing clean and dry, perineum with mild erythematous rash - Labs CBC & Chem 7: 06/19/18 07:02 06/19/18 07:02 Labs: Abnormal Lab Results - Last 24 Hours (Table) 06/18/18 06/18/18 06/18/18 Range/Units 17:16 17:30 19:51 RBC (3.80-5.40) m/uL Hgb (11.4-16.0) gm/dL MCHC (31.0-37.0) g/dL Neutrophils # (1.3-7.7) k/uL Sodium (137-145) mmol/L Potassium (3.5-5.1) mmol/L BUN (7-17) mg/dL POC Glucose (mg/dL) 59 L 54 L 60 L (75-99) mg/dL 06/19/18 06/19/18 06/19/18 Range/Units 07:02 07:02 11:33 RBC 3.70 L (3.80-5.40) m/uL Hgb 11.0 L (11.4-16.0) gm/dL MCHC 30.2 L (31.0-37.0) g/dL Neutrophils # 7.9 H (1.3-7.7) k/uL Sodium 134 L (137-145) mmol/L Potassium 5.3 H (3.5-5.1) mmol/L BUN 5 L (7-17) mg/dL POC Glucose (mg/dL) 116 H (75-99) mg/dL Assessment and Plan Plan: We'll remove the epidural and Diaz catheter today. Increase diet. Nystatin for the perineal rash. Repeat labs tomorrow.
[2018-06-19 16:42] LABS: Glucose,Whole Blood 68 mg/dL (75-99)
[2018-06-19 17:10] LABS: Glucose,Whole Blood 105 mg/dL (75-99)
[2018-06-19] MEDS: LACTATED RINGERS 1,000 ML IV SCH (17:23)
--- NOTE | 2018-06-19 17:29 | P.PN ---
Subjective Progress Note Date: 06/18/18 (Late entry note) Principal diagnosis: Postop day #2 of laparoscopy for right colon mass, right colectomy with epidural for analgesia, and has been doing well obstructive sleep apnea, chronic persistent asthma, severe morbid obesity, coronary artery disease, history of gastric bypass, 06/18/2018, patient seen and evaluated examined during rounds while covering for Dr. Padilla Trevino, patient is postop day #2 of right colon mass resection and right colectomy, procedure was performed under laparoscopy guidance, clinically she is recovering some discomfort and pain is present has been getting epidural labs reviewed medications reviewed Objective - Vital Signs Vital signs: Vital Signs Temp 98.1 F 06/19/18 14:50 Pulse 65 06/19/18 14:50 Resp 16 06/19/18 07:37 BP 104/70 06/19/18 14:50 Pulse Ox 100 06/19/18 14:50 Intake & Output 06/18/18 06/19/18 06/19/18 19:59 06:59 18:59 Intake Total 2290 Output Total Balance 2290 Intake: Intake, IV Titration 1000 Amount D5-0.45% NaCl with KCl 1000 20Meq/l 1,000 ml @ 125 mls/hr IV .Q8H [facility] Rx#: [id number] Ropivacaine 250 mg Hydromorphone (Pf) 5 mg In Sodium Chloride 0.9% 200 ml @ Per Protocol EPIDURAL .Q0M PRN Rx#: [id number] Oral 1290 Output: Urine Uretheral (Diaz) Other: Voiding Method Indwelling Catheter # Bowel Movements 1 - Constitutional General appearance: Present: morbidly obese, no acute distress - EENT Eyes: Present: anicteric sclerae, EOMI, PERRLA, poor dentition, normal appearance ENT: Present: hearing grossly normal, normal oropharynx Ears: bilateral: normal - Neck Carotids: bilateral: upstroke normal Thyroid: bilateral: normal size - Respiratory Respiratory: bilateral: CTA - Cardiovascular Heart sounds: normal: S1, S2 - Gastrointestinal General gastrointestinal: Present: decreased bowel sounds, distended, soft, tenderness - Integumentary Integumentary: Present: normal, normal turgor - Musculoskeletal Musculoskeletal: Present: gait normal, generalized weakness, strength equal bilaterally - Psychiatric Psychiatric: Present: A&O x's 3, appropriate affect, intact judgment & insight - Labs CBC & Chem 7: 06/19/18 07:02 06/19/18 07:02 Labs: Abnormal Lab Results - Last 24 Hours (Table) 06/18/18 06/19/18 06/19/18 Range/Units 19:51 07:02 07:02 RBC 3.70 L (3.80-5.40) m/uL Hgb 11.0 L (11.4-16.0) gm/dL MCHC 30.2 L (31.0-37.0) g/dL Neutrophils # 7.9 H (1.3-7.7) k/uL Sodium 134 L (137-145) mmol/L Potassium 5.3 H (3.5-5.1) mmol/L BUN 5 L (7-17) mg/dL POC Glucose (mg/dL) 60 L (75-99) mg/dL 06/19/18 06/19/18 06/19/18 Range/Units 11:33 16:31 16:59 RBC (3.80-5.40) m/uL Hgb (11.4-16.0) gm/dL MCHC (31.0-37.0) g/dL Neutrophils # (1.3-7.7) k/uL Sodium (137-145) mmol/L Potassium (3.5-5.1) mmol/L BUN (7-17) mg/dL POC Glucose (mg/dL) 116 H 68 L 105 H (75-99) mg/dL Assessment and Plan Assessment: Right colon mass status post right colectomy postop day #2 Coronary artery disease History of gastric bypass Severe morbid obesity Sleep disorder breathing and sleep apnea Chronic intermittent asthma Plan: Pain management per anesthesia Increase activity as tolerated Deep breathing sense incentive spirometry Clear liquid diet advance as tolerated once cleared by surgical services Into new wound VAC Follow clinical course closely further recommendations pending care plan as per clinical response of the patient Time with Patient: Greater than 30
--- NOTE | 2018-06-19 17:33 | P.PN ---
Subjective Progress Note Date: 06/19/18 Principal diagnosis: Postop day #3 of laparoscopy for right colon mass, right colectomy with epidural for analgesia, and has been doing well obstructive sleep apnea, chronic persistent asthma, severe morbid obesity, coronary artery disease, history of gastric bypass, June 19 2018, patient seen eval examined during the rounds clinically patient has been doing slightly better the epidural is out now, pain is better under control breathing more comfortably labs reviewed medications reviewed, hemoglobin is 11, sodium was 134 potassium is 5.3 06/18/2018, patient seen and evaluated examined during rounds while covering for Dr. Padilla Trevino, patient is postop day #2 of right colon mass resection and right colectomy, procedure was performed under laparoscopy guidance, clinically she is recovering some discomfort and pain is present has been getting epidural labs reviewed medications reviewed Objective - Vital Signs Vital signs: Vital Signs Temp 98.1 F 06/19/18 14:50 Pulse 65 06/19/18 14:50 Resp 16 06/19/18 07:37 BP 104/70 06/19/18 14:50 Pulse Ox 100 06/19/18 14:50 Intake & Output 06/18/18 06/19/18 06/19/18 19:59 06:59 18:59 Intake Total 2290 Output Total 1700 Balance 590 Intake: Intake, IV Titration 1000 Amount D5-0.45% NaCl with KCl 1000 20Meq/l 1,000 ml @ 125 mls/hr IV .Q8H [facility] Rx#: [id number] Ropivacaine 250 mg Hydromorphone (Pf) 5 mg In Sodium Chloride 0.9% 200 ml @ Per Protocol EPIDURAL .Q0M PRN Rx#: [id number] Oral 1290 Output: Urine 1700 Uretheral (Diaz) 1700 Other: Voiding Method Indwelling Catheter # Bowel Movements 1 - Exam Constitutional General appearance: Present: morbidly obese, no acute distress - EENT Eyes: Present: anicteric sclerae, EOMI, PERRLA, poor dentition, normal appearance ENT: Present: hearing grossly normal, normal oropharynx Ears: bilateral: normal - Neck Carotids: bilateral: upstroke normal Thyroid: bilateral: normal size - Respiratory Respiratory: bilateral: CTA - Cardiovascular Heart sounds: normal: S1, S2 - Gastrointestinal General gastrointestinal: Present: decreased bowel sounds, distended, soft, tenderness - Integumentary Integumentary: Present: normal, normal turgor - Musculoskeletal Musculoskeletal: Present: gait normal, generalized weakness, strength equal bilaterally - Psychiatric Psychiatric: Present: A&O x's 3, appropriate affect, intact judgment & insight - Labs CBC & Chem 7: 06/19/18 07:02 06/19/18 07:02 Labs: Abnormal Lab Results - Last 24 Hours (Table) 06/18/18 06/19/18 06/19/18 Range/Units 19:51 07:02 07:02 RBC 3.70 L (3.80-5.40) m/uL Hgb 11.0 L (11.4-16.0) gm/dL MCHC 30.2 L (31.0-37.0) g/dL Neutrophils # 7.9 H (1.3-7.7) k/uL Sodium 134 L (137-145) mmol/L Potassium 5.3 H (3.5-5.1) mmol/L BUN 5 L (7-17) mg/dL POC Glucose (mg/dL) 60 L (75-99) mg/dL 06/19/18 06/19/18 06/19/18 Range/Units 11:33 16:31 16:59 RBC (3.80-5.40) m/uL Hgb (11.4-16.0) gm/dL MCHC (31.0-37.0) g/dL Neutrophils # (1.3-7.7) k/uL Sodium (137-145) mmol/L Potassium (3.5-5.1) mmol/L BUN (7-17) mg/dL POC Glucose (mg/dL) 116 H 68 L 105 H (75-99) mg/dL Assessment and Plan Assessment: Right colon mass status post right colectomy postop day #3 Borderline hyperkalemia Hyponatremia Coronary artery disease History of gastric bypass Severe morbid obesity Sleep disorder breathing and sleep apnea Chronic intermittent asthma Plan: Pain management per anesthesia Increase activity as tolerated Deep breathing sense incentive spirometry Clear liquid diet advance as tolerated once cleared by surgical services Continue wound VAC Repeat labs tomorrow especially sodium and potassium Follow clinical course closely further recommendations pending care plan as per clinical response of the patient Time with Patient: Greater than 30
[2018-06-19] MEDS: HYDROmorphone 1 MG/ML 1 ML SYRINGE IVP PRN ×2 (17:51→23:18)
[2018-06-19] MEDS: diphenhydrAMINE 25 MG CAP PO PRN (17:51)
[2018-06-19 20:09] LABS: Glucose,Whole Blood 134 mg/dL (75-99)
[2018-06-19] MEDS: ALPRAZolam 0.5 MG TAB PO SCH (21:12)
[2018-06-19] MEDS: ATORVASTATIN 40 MG TAB PO SCH (21:12)
[2018-06-19] MEDS: HYDROcodone/APAP 5-325MG 1 EACH TAB PO PRN (21:50)
[2018-06-20] MEDS: HEPARIN SODIUM,PORCINE 5,000 UNIT/ML 1 ML VIAL SQ SCH ×3 (00:38→18:00)
[2018-06-20] MEDS: diphenhydrAMINE 50 MG/ML 1 ML VIAL IVP PRN (00:38)
[2018-06-20] MEDS: HYDROcodone/APAP 5-325MG 1 EACH TAB PO PRN ×5 (02:36→21:49)
[2018-06-20] MEDS: LEVOTHYROXINE 75 MCG TAB PO SCH (06:09)
[2018-06-20 07:10] LABS: Glucose,Whole Blood 75 mg/dL (75-99)
[2018-06-20] MEDS: INSULIN ASPART 100 UNIT/ML 1 ML 10 ML VIAL SQ SCH ×4 (08:51→20:21)
[2018-06-20 08:57] LABS: Basophils % (A) 0 %; Eosinophils # (A) 0.4 k/uL (0-0.7); Eosinophils % (A) 4 %; HCT 35.1 % (34.0-46.0); HGB 11.3 gm/dL (11.4-16.0); Lymphocytes # (A) 1.1 k/uL (1.0-4.8); Lymphocytes % (A) 12 %; MCH 30.1 pg (25.0-35.0); MCHC 32.1 g/dL (31.0-37.0); Mean Platelet Volume 6.9; Monocytes # (A) 0.7 k/uL (0-1.0); Monocytes % (A) 8 %; Neutrophils # (A) 6.7 k/uL (1.3-7.7); Neutrophils % (A) 75 %; Platelet Count 289 k/uL (150-450); RBC 3.75 m/uL (3.80-5.40); RDW 13.9 % (11.5-15.5); WBC 8.9 k/uL (3.8-10.6)
[2018-06-20 09:03] LABS: MCV 93.7 fL (80.0-100.0)
[2018-06-20 09:25] LABS: ALT 25 U/L (9-52); AST 19 U/L (14-36); Albumin 2.6 g/dL (3.5-5.0); Alkaline Phosphatase 80 U/L (38-126); Anion Gap 4 mmol/L; Blood Urea Nitrogen 9 mg/dL (7-17); Calcium 9.8 mg/dL (8.4-10.2); Carbon Dioxide 33 mmol/L (22-30); Chloride 101 mmol/L (98-107); Glucose 116 mg/dL (74-99); Potassium 4.6 mmol/L (3.5-5.1); Sodium 138 mmol/L (137-145); Total Bilirubin 0.5 mg/dL (0.2-1.3); Total Protein 5.2 g/dL (6.3-8.2)
[2018-06-20] MEDS: FAMOTIDINE 20 MG/2 ML VIAL IV SCH (09:26)
[2018-06-20] MEDS: HYDROmorphone 1 MG/ML 1 ML SYRINGE IVP PRN (09:27)
[2018-06-20] MEDS: NYSTATIN 100,000 UNIT/GM OINT 30 GM TUBE TOPICAL SCH ×3 (09:27→20:38)
[2018-06-20] MEDS: GLIMEPIRIDE 1 MG TAB PO SCH (09:27)
[2018-06-20] MEDS: ALVIMOPAN 12 MG CAPSULE PO SCH ×2 (09:27→20:37)
--- NOTE | 2018-06-20 12:20 | P.PN ---
Subjective Progress Note Date: 06/20/18 68-year-old female seen sitting up in bed. Patient states she has been up ambulating in the room. Pain medication effective for pain control. Surgical dressing dry. Reports no nausea vomiting tolerating bariatric diet June 16 laparoscopic right colectomy for a right colon mass Objective - Vital Signs Vital signs: Vital Signs Temp 97.8 F 06/20/18 07:20 Pulse 65 06/20/18 07:20 Resp 16 06/20/18 07:20 BP 123/81 06/20/18 07:20 Pulse Ox 95 06/20/18 07:20 Intake & Output 06/19/18 06/20/18 06/20/18 18:59 06:59 18:59 Intake Total 2290 400 240 Output Total 1700 Balance 590 400 240 Intake: Intake, IV Titration 1000 160 Amount D5-0.45% NaCl with KCl 1000 20Meq/l 1,000 ml @ 125 mls/hr IV .Q8H [facility] Rx#: [id number] Lactated Ringers 1,000 ml 160 @ 20 mls/hr IV .Q24H [facility] Rx#:[id number] Oral 1290 240 240 Output: Urine 1700 Uretheral (Diaz) 1700 Other: Voiding Method Indwelling Catheter Toilet # Voids 1 2 # Bowel Movements 1 - Exam Physical exam 68-year-old female sitting up in bed states pain medication effective for pain control Lungs adequate air movement bilaterally Heart S1-S2 audible regular Abdomen soft nondistended nontender .prevena wound system in place surgical dressing dry reports no nausea no vomiting tolerating fiber diet Extremities Venodyne's on to the bilateral lower extremities - Labs CBC & Chem 7: 06/20/18 08:18 06/20/18 08:18 Labs: Abnormal Lab Results - Last 24 Hours (Table) 06/19/18 06/19/18 06/19/18 Range/Units 16:31 16:59 19:59 RBC (3.80-5.40) m/uL Hgb (11.4-16.0) gm/dL Carbon Dioxide (22-30) mmol/L Glucose (74-99) mg/dL POC Glucose (mg/dL) 68 L 105 H 134 H (75-99) mg/dL Total Protein (6.3-8.2) g/dL Albumin (3.5-5.0) g/dL 06/20/18 06/20/18 Range/Units 08:18 08:18 RBC 3.75 L (3.80-5.40) m/uL Hgb 11.3 L (11.4-16.0) gm/dL Carbon Dioxide 33 H (22-30) mmol/L Glucose 116 H (74-99) mg/dL POC Glucose (mg/dL) (75-99) mg/dL Total Protein 5.2 L (6.3-8.2) g/dL Albumin 2.6 L (3.5-5.0) g/dL Assessment and Plan Assessment: Impression Postop laparoscopic right colectomy for a right colon mass done on June 16 History of chronic right lower quadrant pain with a CAT scan done prior to admission showed significant inflammation of the right colon and terminal ileum Known coronary artery disease History of gastric bypass Sleep apnea with CPAP therapy Plan possible discharge in the next 24 hours if medically stable Pain control Continue postop surgical care Increase activity Continue wound VAC system as ordered DVT and GI prophylaxis The above impression and plan of care have been discussed and directed by signing physician. Hilaria Vasquez nurse practitioner acting as scribe for signing physician.
[2018-06-20 12:29] LABS: Glucose,Whole Blood 58 mg/dL (75-99)
[2018-06-20 12:33] LABS: Glucose,Whole Blood 61 mg/dL (75-99)
[2018-06-20] MEDS: diphenhydrAMINE 25 MG CAP PO PRN ×2 (14:44→20:40)
[2018-06-20] MEDS: LACTATED RINGERS 1,000 ML IV SCH (15:14)
[2018-06-20 17:11] LABS: Glucose,Whole Blood 91 mg/dL (75-99)
[2018-06-20 20:17] LABS: Glucose,Whole Blood 105 mg/dL (75-99)
--- NOTE | 2018-06-20 20:22 | PN ---
PROGRESS NOTE SUBJECTIVE: This is a 68-year-old white female with colitis, status post ileum biopsy. She is on better pain control. She has incision clean, dry, intact. Cardiovascular S1, S2. Lungs clear. GI is soft. Hematology negative Homans. ASSESSMENT: 1. Colitis status post ileum biopsy. 2. Obesity. 3. Arthritis. Please see further orders. Follow up in the next 24 to 48 hours for discharge. MMODL / IJN: [id number] /
[2018-06-20] MEDS: ATORVASTATIN 40 MG TAB PO SCH (20:38)
[2018-06-20] MEDS: ALPRAZolam 0.5 MG TAB PO SCH (20:38)
[2018-06-20] MEDS: FAMOTIDINE 20 MG TAB PO SCH (20:38)
[2018-06-21] MEDS: HEPARIN SODIUM,PORCINE 5,000 UNIT/ML 1 ML VIAL SQ SCH ×2 (00:11→07:43)
[2018-06-21] MEDS: HYDROcodone/APAP 5-325MG 1 EACH TAB PO PRN ×3 (02:07→11:50)
[2018-06-21] MEDS: diphenhydrAMINE 25 MG CAP PO PRN (02:07)
[2018-06-21] MEDS: LEVOTHYROXINE 75 MCG TAB PO SCH (06:01)
[2018-06-21] MEDS: INSULIN ASPART 100 UNIT/ML 1 ML 10 ML VIAL SQ SCH ×2 (07:36→12:36)
[2018-06-21 07:40] LABS: Glucose,Whole Blood 92 mg/dL (75-99)
[2018-06-21] MEDS: GLIMEPIRIDE 1 MG TAB PO SCH (07:42)
[2018-06-21] MEDS: ALVIMOPAN 12 MG CAPSULE PO SCH (07:42)
[2018-06-21] MEDS: FAMOTIDINE 20 MG TAB PO SCH (07:42)
[2018-06-21] MEDS: NYSTATIN 100,000 UNIT/GM OINT 30 GM TUBE TOPICAL SCH (07:43)
[2018-06-21 08:29] VITALS: BP 129/78; PULSE 75; RESP 14; TEMP 97.8
--- NOTE | 2018-06-21 11:11 | P.PN ---
Subjective Progress Note Date: 06/21/18 68-year-old female seen at the bedside. Patient reports having some tenderness to the right lower quadrant "been coughing a lot not sure that's what caused it. Denies any itching. No skin rash noted. Abdomen is soft not distended mild tenderness afebrile no labs pending reports no nausea no vomiting path report pending from the colon Reportedly tolerating a diet with no nausea no vomiting June 16 laparoscopic right colectomy for a right colon mass Objective - Vital Signs Vital signs: Vital Signs Temp 97.8 F 06/21/18 07:10 Pulse 75 06/21/18 07:43 Resp 14 06/21/18 07:43 BP 129/78 06/21/18 07:10 Pulse Ox 93 L 06/21/18 07:10 Intake & Output 06/20/18 06/21/18 06/21/18 18:59 06:59 18:59 Intake Total 820 540 Balance 820 540 Intake: Oral 820 540 Other: Voiding Method Toilet Toilet # Voids 2 3 - Exam Physical exam 68-year-old female sitting up in bed states tenderness to the right lower quadrant Lungs adequate air movement bilaterally no shortness of breath room air sats 93 Heart S1-S2 audible regular denying chest pain Abdomen soft nondistended nontender .prevena wound system in place surgical dressing dry reports no nausea no vomiting tolerating fiber diet Extremities Venodyne's on to the bilateral lower extremities - Labs CBC & Chem 7: 06/20/18 08:18 06/20/18 08:18 Labs: Abnormal Lab Results - Last 24 Hours (Table) 06/20/18 06/20/18 06/20/18 Range/Units 12:28 12:32 20:16 POC Glucose (mg/dL) 58 L 61 L 105 H (75-99) mg/dL Assessment and Plan Assessment: Impression Postop laparoscopic right colectomy for a right colon mass done on June 16 History of chronic right lower quadrant pain with a CAT scan done prior to admission showed significant inflammation of the right colon and terminal ileum Known coronary artery disease History of gastric bypass Sleep apnea with CPAP therapy Plan Path report pending possible discharge in the next 24 hours if medically stable Pain control Continue postop surgical care Increase activity Continue wound VAC system as ordered DVT and GI prophylaxis The above impression and plan of care have been discussed and directed by signing physician. Hilaria Vasquez nurse practitioner acting as scribe for signing physician.
[2018-06-21 12:24] LABS: Glucose,Whole Blood 80 mg/dL (75-99)
--- NOTE | 2018-06-21 13:44 | P.DS ---
Providers Date of admission: 06/16/18 07:30 Expected date of discharge: 06/21/18 Attending physician: Mannie Tanner Consults: 06/16/18 11:34 Consult Physician Routine Consulting Provider: Padilla Santiago Reason/Comments: Management Do you want consulting provider notified?: Yes [facility] Course: 68-year-old female who had a CAT scan done in the outpatient setting showed significant inflammation of the right colon and terminal ileum. Patient presented on the day of admission to undergo an elective laparoscopic right colectomy for a right colon mass. Postop there were no events. On the day of discharge patient's pain was controlled effectively tolerating a diet surgical incision site dry. Abdomen soft nondistended White count on the fifth 8.9 hemoglobin 11.3 Impression Postop laparoscopic right colectomy for a right colon mass done on June 16 History of chronic right lower quadrant pain with a CAT scan done prior to admission showed significant inflammation of the right colon and terminal ileum Known coronary artery disease History of gastric bypass Sleep apnea with CPAP therapy Sleep disorder with sleep apnea Chronic intermittent asthma Morbid obesity BMI is a 3 Mild Hyponatremia resolved Mild hyperkalemia resolved The above impression and plan of care have been discussed and directed by signing physician. Hilaria Vasquez nurse practitioner acting as scribe for signing physician. Plan - Discharge Summary Discharge Rx Participant: Yes New Discharge Prescriptions: New Nystatin 100,000 Unit/gm Oint [Mycostatin Oint] 1 applic TOPICAL TID applic HYDROcodone/APAP 5-325MG [[place] 5-325] 1 tab PO Q4HR PRN 3 Days #18 tab PRN Reason: Mild Breakthrough Pain Continue Simvastatin [Zocor] 80 mg PO HS Lisinopril [Zestril] 2.5 mg PO HS Carvedilol [Coreg] 3.125 mg PO BID Zafirlukast [Accolate] 20 mg PO BID Fluticasone/Salmeterol [Advair 250-50 Diskus] 1 puff INHALATION RT-BID PRN PRN Reason: Shortness Of Breath Ergocalciferol [Vitamin D2 (DRISDOL)] 50,000 unit PO MO Levothyroxine Sodium [Synthroid] 150 mcg PO QAM Aspirin 81 mg PO DAILY Glimepiride [Amaryl] 1 mg PO AC-BRKFST Diphenoxylate HCl/Atropine [Lomotil] 2 tab PO QID PRN PRN Reason: Diarrhea Cyanocobalamin (Vitamin B-12) [Vitamin B-12] 1,000 mcg PO DAILY Calcium Carbonate [Calcium] 600 mg PO DAILY Multivit with Calcium,Iron,Min [Women's Multivitamin] 1 tab PO DAILY rOPINIRole HCL [Requip] 0.5 mg PO HS Meclizine [Antivert] 25 mg PO TID PRN PRN Reason: Vertigo ALPRAZolam [Xanax] 0.5 mg PO HS Hydrocodone/Acetaminophen [Hydrocodon-Acetaminophn 10-325] 1 tab PO Q6H Menthol [Biofreeze] 1 applic TOPICAL DIRECTED PRN PRN Reason: Muscle Pain Discharge Medication List Carvedilol [Coreg] 3.125 mg PO BID 03/21/14 [History] Fluticasone/Salmeterol [Advair 250-50 Diskus] 1 puff INHALATION RT-BID PRN 03/21 [History] Lisinopril [Zestril] 2.5 mg PO HS 03/21/14 [History] Simvastatin [Zocor] 80 mg PO HS 03/21/14 [History] Zafirlukast [Accolate] 20 mg PO BID 03/21/14 [History] Ergocalciferol [Vitamin D2 (DRISDOL)] 50,000 unit PO MO 10/09/14 [History] Levothyroxine Sodium [Synthroid] 150 mcg PO QAM 10/09/14 [History] Aspirin 81 mg PO DAILY 08/06/15 [History] Glimepiride [Amaryl] 1 mg PO AC-BRKFST 10/08/15 [History] Diphenoxylate HCl/Atropine [Lomotil] 2 tab PO QID PRN 03/30/16 [History] Calcium Carbonate [Calcium] 600 mg PO DAILY 01/07/17 [History] Cyanocobalamin (Vitamin B-12) [Vitamin B-12] 1,000 mcg PO DAILY 01/07/17 [ History] Multivit with Calcium,Iron,Min [Women's Multivitamin] 1 tab PO DAILY 08/04/17 [ History] rOPINIRole HCL [Requip] 0.5 mg PO HS 08/04/17 [History] ALPRAZolam [Xanax] 0.5 mg PO HS 03/10/18 [History] Hydrocodone/Acetaminophen [Hydrocodon-Acetaminophn 10-325] 1 tab PO Q6H [History] Meclizine [Antivert] 25 mg PO TID PRN 03/10/18 [History] Menthol [Biofreeze] 1 applic TOPICAL DIRECTED PRN 06/13/18 [History] HYDROcodone/APAP 5-325MG [[place] 5-325] 1 tab PO Q4HR PRN 3 Days #18 tab [Rx] Nystatin 100,000 Unit/gm Oint [Mycostatin Oint] 1 applic TOPICAL TID applic 01/31 [Rx] Follow up Appointment(s)/Referral(s): Padilla Santiago MD [Primary Care Provider] - 1 Week Mannie Tanner MD [STAFF PHYSICIAN] - 06/27/18 Activity/Diet/Wound Care/Special Instructions: No tub bath for six weeks. Shower daily. No lifting over 10 pounds for the next 2 weeks. May use ice packs to surgical site. No driving while taking narcotic for pain. Discharge Disposition: HOME SELF-CARE
--- NOTE | 2018-07-01 19:54 | CDI ---
Documentation Clarification Form Date: 07/01/2018 7:46:05 PM From: MARY Carr; Anita Simpson Classroom Technology Coach Phone: If you have a question about this query, please contact Anita Simpson Classroom Technology Coach at [phone] between 8am and 5pm. Admit Date: 06/16/2018 7:30:00 AM Patient Name: Dylon Ochoa Visit Number: [id number] Discharge Date: 06/21/2018 ATTENTION: The Clinical Documentation Specialists (CDI) and [facility] Coding Staff appreciate your assistance in clarifying documentation. Please respond to the clarification below the line at the bottom and electronically sign. The CDI & [facility] Coding staff will review the response and follow-up if needed. Please note: Queries are made part of the Legal Health Record. If you have any questions, please contact the author of this message via ITS. Mannie Parra MD The final diagnosis of the pathology report states: diffuse large B-cell lymphoma. Documentation states: Right colon mass. Patient history/risk factors: Right lower quadrant pain, CAT showed significant inflammation of the right colon and terminal ileum. Treatment: Right colostomy In your professional opinion, do you agree with the pathology report specifying right colon mass as diffuse large B-cell lymphoma? Yes No Other (please specify) Unable to determine yes I agree with pathology MTDD
== END 2018-06-21 15:00 | disposition home or self-care (01) | DRG 821 ==
LOC: 2ORMAIN 07:30 → 4SSUR 11:59
PROVIDERS: ADMIT Surgery; ATTEND Surgery
PROC: 0DTF4ZZ Resection of Right Large Intestine, Percutaneous Endoscopic Approach (ICD-10-PCS; principal; 2018-06-16 09:20)
DX: C83.33 Diffuse large B-cell lymphoma, intra-abdominal lymph nodes (principal); E87.1 Hypo-osmolality and hyponatremia; Z68.41 Body mass index [BMI] 40.0-44.9, adult; E03.9 Hypothyroidism, unspecified; E11.9 Type 2 diabetes mellitus without complications; E66.01 Morbid (severe) obesity due to excess calories; E78.5 Hyperlipidemia, unspecified; E87.5 Hyperkalemia; F41.9 Anxiety disorder, unspecified; G25.81 Restless legs syndrome; G47.33 Obstructive sleep apnea (adult) (pediatric); H91.92 Unspecified hearing loss, left ear; I10 Essential (primary) hypertension; I25.10 Atherosclerotic heart disease of native coronary artery without angina pectoris; J45.20 Mild intermittent asthma, uncomplicated; K52.9 Noninfective gastroenteritis and colitis, unspecified; L29.9 Pruritus, unspecified; M19.90 Unspecified osteoarthritis, unspecified site; Z79.82 Long term (current) use of aspirin; Z80.1 Family history of malignant neoplasm of trachea, bronchus and lung; Z87.891 Personal history of nicotine dependence; Z95.1 Presence of aortocoronary bypass graft; Z98.84 Bariatric surgery status; Z99.89 Dependence on other enabling machines and devices
CPT/HCPCS: 80048; 80053; 83036; 85025; 86850; 86900; 86901; 88305; 88307; 88341; 88342; 88365; 94760

== ENCOUNTER 2018-07-12 09:29 | Day surgery (SDC) | payer MEDICARE, OTHER ==
[2018-07-06 13:33] VITALS: BMI 44.4
[~2018-07-12 09:29] MED LIST changes: -DEXAMETHASONE SOD PHOSPHATE 10 MG/ML 1 ML VIAL IV ONE; -HYDROmorphone 0.5 MG/0.5 ML SYRINGE IVP PRN; +LACTATED RINGERS 1,000 ML IV SCH; +MORPHINE SULFATE 2 MG/ML SYRINGE IV PRN; -ONDANSETRON 4 MG/2 ML VIAL IVP ONE; +Pre Op ABX Message 1 EACH MISC MISCELLANE ONE
[2018-07-12] MEDS ORDERED: LACTATED RINGERS 1,000 ML IV ONE (10:23)
[2018-07-12] MEDS ORDERED: ONDANSETRON 4 MG/2 ML VIAL IVP ONE (10:39)
[2018-07-12 10:40] LABS: Glucose,Whole Blood 76 mg/dL (75-99)
[2018-07-12] MEDS ORDERED: DEXAMETHASONE SOD PHOS (MDV) 100 MG/10 ML VIAL IVP ONE (10:40)
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
[2018-07-12] MEDS ORDERED: BUPIVACAIN-EPI 0.25%-1:200,000 30 ML VIAL SQ ONE (11:10)
[2018-07-12] MEDS ORDERED: PROPOFOL 10 MG/ML 20 ML VIAL IV ONE (11:23)
[2018-07-12] MEDS ORDERED: fentaNYL (PF) 50 MCG/ML 2 ML AMP ONE (11:23)
[2018-07-12] MEDS ORDERED: LIDOCAINE 1% INJ 10MG/ML (20 ML MDV) ONE (11:23)
[2018-07-12] MEDS ORDERED: MIDAZOLAM 2 MG/2 ML VIAL ONE (11:23)
[2018-07-12] MEDS ORDERED: HYDROmorphone (PF) 1 MG/ML ONE (11:23)
[2018-07-12] MEDS ORDERED: KETAMINE 10 MG/ML 20 ML VIAL ONE (11:23)
[2018-07-12] MEDS ORDERED: IOPAMIDOL-370 50ML BTL MISCELLANE ONE (11:54)
--- NOTE | 2018-07-12 12:15 | P.OP ---
Date of Procedure: 07/12/18 Preoperative Diagnosis: Lymphoma Postoperative Diagnosis: Lymphoma Procedure(s) Performed: Insertion of right subclavian Port-A-Cath Anesthesia: MAC Surgeon: Mannie Tanner Estimated Blood Loss (ml): 5 Pathology: none sent Condition: stable Disposition: PACU Description of Procedure: PROCEDURE: The patient was placed on the operating table in the supine position. She received MAC anesthetic. The [right] chest was prepped and draped in the usual sterile fashion. The skin underneath the right clavicle was anesthetized with 1% Xylocaine and using Seldinger technique, the right subclavian vein was cannulized. The wire was placed through the needle and positioned under fluoroscopy. Next, the needle was removed and the port site was anesthetized with 1% Xylocaine. Skin was incised with #15 blade and port pocket was made using blunt and sharp dissection. Following this the catheter was attached to the sport and the port was flushed. The port was positioned into the pocket site and was secured with 3-0 Vicryl suture. The catheter was then brought out through the wire site and then the dilator sheath was placed over the wire and the dilator and the wire were removed. The catheter was placed through the sheath and the sheath was removed. The port was flushed with hep-lock solution. Skin was closed with interrupted 3-0 Vicryl sutures. Steri-Strips were applied. The patient tolerated the procedure well. The patient was sent to recovery room for chest x-ray after the procedure.
[2018-07-12 12:39] VITALS: TEMP 98
[2018-07-12 12:52] VITALS: RESP 16
[2018-07-12 12:52] LABS: Glucose,Whole Blood 89 mg/dL (75-99)
--- NOTE | 2018-07-12 13:12 | FL ---
EXAMINATION TYPE: FL guided central line placemt HISTORY: Fluoroscopy time Impression: 1. Fluoroscopy support provided to the referring physician. 39 seconds provided.
--- NOTE | 2018-07-12 13:16 | XR ---
EXAMINATION TYPE: XR chest 1V portable DATE OF EXAM: 07/12/2018 COMPARISON: 09/17/2017 HISTORY: Line placement TECHNIQUE: Single frontal view of the chest is obtained. FINDINGS: There is no focal air space opacity, pleural effusion, or pneumothorax seen. The cardiac silhouette size is within normal limits. The osseous structures are intact. Heart is enlarged and t here is a prosthetic right shoulder. Diffuse osteopenia with arthropathy of the left shoulder. Postsu rgical changes are seen. There is a right-sided catheter with the tip overlying the SVC. IMPRESSION: 1. Right-sided central line placement with the tip overlying the SVC and no sizable thorax..
[2018-07-12 13:45] VITALS: BP 121/63; PULSE 56
== END 2018-07-12 14:02 | disposition home or self-care (01) ==
LOC: OR 09:29
PROVIDERS: ATTEND Surgery
DX: C85.19 Unspecified B-cell lymphoma, extranodal and solid organ sites (principal); J45.909 Unspecified asthma, uncomplicated; I25.10 Atherosclerotic heart disease of native coronary artery without angina pectoris; E11.9 Type 2 diabetes mellitus without complications; E78.5 Hyperlipidemia, unspecified; I10 Essential (primary) hypertension; M19.90 Unspecified osteoarthritis, unspecified site; H91.92 Unspecified hearing loss, left ear; E07.9 Disorder of thyroid, unspecified; G47.30 Sleep apnea, unspecified; R42 Dizziness and giddiness; L40.9 Psoriasis, unspecified; G25.81 Restless legs syndrome; I83.90 Asymptomatic varicose veins of unspecified lower extremity; M54.9 Dorsalgia, unspecified; Z99.89 Dependence on other enabling machines and devices; Z79.82 Long term (current) use of aspirin; Z79.890 Hormone replacement therapy; Z79.891 Long term (current) use of opiate analgesic; Z79.899 Other long term (current) drug therapy; Z79.84 Long term (current) use of oral hypoglycemic drugs; Z95.1 Presence of aortocoronary bypass graft; Z96.652 Presence of left artificial knee joint; Z90.49 Acquired absence of other specified parts of digestive tract; Z98.84 Bariatric surgery status; Z98.51 Tubal ligation status; Z91.81 History of falling; Z85.038 Personal history of other malignant neoplasm of large intestine; Z87.891 Personal history of nicotine dependence; Z88.1 Allergy status to other antibiotic agents; Z91.048 Other nonmedicinal substance allergy status
CPT/HCPCS: 93005; 77001; 71045; 36561; C1788; J2250; J1644; J2405; J2001; J3010; J2270; J1170; J1642; J1100; J2704; Q9967

== ENCOUNTER → 2018-07-16 | Outpatient (CLI) | payer MEDICARE, OTHER ==
--- NOTE | 2018-07-18 11:48 | PE ---
EXAMINATION TYPE: PET CT fusion skull to thigh DATE OF EXAM: 07/16/2018 COMPARISON: CT abdomen pelvis dated 05/20/2018 HISTORY: Lymphoma. Initial exam. TECHNIQUE: Following the intravenous administration of 14.07 mCi of F-18 FDG, whole body images are performed from the skull base to the midthigh. Images are reviewed on the computer in the coronal, a xial, and sagittal planes. Reconstructed rotating images are created on independent workstation and reviewed on the computer. A localization and attenuation correction CT is performed in conjunction with the PET scan. SCAN: Initial. Staging. FINDINGS: Abdominal background: 2.87 Aortic background: 1.89 SKULL BASE AND NECK: No suspicious radiotracer uptake. CHEST, MEDIASTINUM, AND HILAR REGION: No suspicious radiotracer uptake. Along the right medial should er joint there is uptake of 2.7, likely from myositis and degenerative change of the ramona bone. ABDOMEN AND PELVIS: No suspicious radiotracer uptake. There are matted lymph nodes within the right l ower quadrant on images 180 through 185 that demonstrates similar radiotracer uptake to hepatic backg round of 2.85. Uptake within the surgical scar in the subcutaneous ventral abdominal wall measures 3. 5 to, compatible with postsurgical change. Multifocal avid uptake and excretion within the bowel nasim ures up to 7.3 SUV, likely physiologic. OSSEOUS STRUCTURES: No suspicious radiotracer uptake. OTHER CT: Right-sided Mediport terminates in the distal superior vena cava. Right arthroplasty is inc identally noted. Sternotomy wires are also seen. The heart is mildly enlarged. Calcified benign right lower lobe granuloma is noted with left-sided pleural parenchymal scarring. Postsurgical changes are noted at the gastroesophageal junction from prior partial gastrectomy. A sma ll amount of fluid is seen within the distal esophagus possibly related to gastroesophageal reflux or delayed propulsion. Again there is nodular thickening of the adrenal glands although similar back to 2011. Bilateral erika l cysts are again appreciated. Gallbladder is surgically absent. Sigmoid diverticulosis is incidental ly noted. There are postsurgical phlegmonous changes in the right lower quadrant with marked decrease of the pr eviously seen right lower quadrant adenopathy. A lymph node in the right lower quadrant on series 3 i mage 169 measures 1.6 cm in short axis and previously measured 1.8 cm in short axis on the prior of . There is no hypermetabolic uptake as the SUV is below abdominal background within this node . All other nodes within the mesentery are sub-4 mm although exam is slightly limited by lack of cont rast. IMPRESSION: 1. A solitary nonhypermetabolic enlarged right lower quadrant lymph node remains measuring decrease i n size from the prior exam of 05/20/2018. No other evidence of adenopathy within the chest, abdomen, o r pelvis. No hypermetabolic lymph nodes throughout. 2. Slight hypermetabolic uptake multifocally throughout the bowel is likely postsurgical and physiolo gic.
== END | disposition home or self-care (01) ==
LOC: RADPETMAIN 07:21
PROVIDERS: ATTEND Internal Medicine Hematology & Oncology
DX: C83.39 Diffuse large B-cell lymphoma, extranodal and solid organ sites (principal); R59.0 Localized enlarged lymph nodes
CPT/HCPCS: 78815; A9552

== ENCOUNTER 2018-08-01 07:37 | Inpatient (IN) | payer MEDICARE, OTHER ==
[2018-08-01] MEDS ORDERED: diphenhydrAMINE 50 MG/ML 1 ML VIAL IVP ONE (10:00)
[2018-08-01] MEDS ORDERED: ACETAMINOPHEN TAB 325 MG TAB PO ONE (10:00)
[2018-08-01] MEDS ORDERED: methylPREDNISolone SOD SUCCI 125 MG/2 ML VIAL IV ONE (10:00)
[2018-08-01 10:18] LABS: Basophils % (A) 0 %; Eosinophils # (A) 0.1 k/uL (0-0.7); Eosinophils % (A) 1 %; HCT 36.6 % (34.0-46.0); HGB 11.4 gm/dL (11.4-16.0); Hypochromasia Slight; Lymphocytes # (A) 0.9 k/uL (1.0-4.8); Lymphocytes % (A) 18 %; MCH 29.7 pg (25.0-35.0); MCHC 31.2 g/dL (31.0-37.0); MCV 95.4 fL (80.0-100.0); Mean Platelet Volume 7.1; Monocytes # (A) 0.2 k/uL (0-1.0); Monocytes % (A) 4 %; Neutrophils % (A) 75 %; Platelet Count 344 k/uL (150-450); RBC 3.83 m/uL (3.80-5.40); RDW 15.1 % (11.5-15.5); WBC 5.3 k/uL (3.8-10.6)
[2018-08-01] MEDS: HYDROcodone/APAP 10-325MG 1 EACH TAB PO PRN ×3 (10:24→22:34)
[2018-08-01] MEDS: SODIUM CHLORIDE 0.9% 1,000 ML IV SCH ×2 (10:28→19:50)
[2018-08-01] MEDS: CARVEDILOL 3.125 MG TAB PO SCH ×2 (10:34→17:02)
[2018-08-01] MEDS: LEVOTHYROXINE 75 MCG TAB PO SCH (10:34)
[2018-08-01] MEDS: FAMOTIDINE 20 MG/2 ML VIAL IV SCH (10:34)
[2018-08-01] MEDS: ENOXAPARIN 40 MG/0.4 ML SYRINGE SQ SCH (10:37)
[2018-08-01 10:39] LABS: ALT 23 U/L (9-52); AST 20 U/L (14-36); Alkaline Phosphatase 79 U/L (38-126); Anion Gap 5 mmol/L; Blood Urea Nitrogen 8 mg/dL (7-17); Calcium 9.9 mg/dL (8.4-10.2); Carbon Dioxide 26 mmol/L (22-30); Chloride 112 mmol/L (98-107); Glucose 174 mg/dL (74-99); Potassium 4.3 mmol/L (3.5-5.1); Sodium 143 mmol/L (137-145); Total Bilirubin 0.6 mg/dL (0.2-1.3); Total Protein 5.6 g/dL (6.3-8.2)
[2018-08-01] MEDS: ONDANSETRON 16 MG in SODIUM CHLORIDE 0.9% 50 ML IVPB SCH (10:39)
[2018-08-01 10:58] LABS: Glucose,Whole Blood 159 mg/dL (75-99)
[2018-08-01] MEDS ORDERED: riTUXimab 800 MG in SODIUM CHLORIDE 0.9% 500 ML 500 ML IV NR (11:00)
[2018-08-01] MEDS: GLIMEPIRIDE 1 MG TAB PO SCH (11:00)
[2018-08-01] MEDS: predniSONE 50 MG TAB PO SCH ×2 (12:04→20:08)
[2018-08-01] MEDS: predniSONE 10 MG TAB PO SCH ×2 (12:04→20:08)
--- NOTE | 2018-08-01 12:51 | ECHOF ---
Referral Reason:starting chemo today and needs to have done prior MEASUREMENTS -------- HEIGHT: 162.6 cm WEIGHT: 111.6 kg BP: 117/83 RVIDd: 2.7 cm (< 3.3) IVSd: 1.1 cm (0.6 - 1.1) LVIDd: 6.0 cm (3.9 - 5.3) LVPWd: 1.1 cm (0.6 - 1.1) IVSs: 1.5 cm LVIDs: 4.1 cm LVPWs: 1.5 cm LAESV Index (A-L): 31.92 ml/m Ao Diam: 3.2 cm (2.0 - 3.7) AV Cusp: 2.1 cm (1.5 - 2.6) LA Diam: 3.9 cm (2.7 - 3.8) EPSS: 1.0 cm MV E Serge: 1.02 m/s MV DecT: 232 ms MV A Serge: 1.09 m/s MV E/A Ratio: 0.93 RAP: 5.00 mmHg RVSP: 37.41 mmHg MV EF SLOPE: 138.65 mm/s (70 - 150) MV EXCURSION: 2.70 cm (> 18.000) FINDINGS -------- Sinus rhythm. This was a technically adequate study. The left ventricular size is normal. There is borderline concentric left ventricular hypertrophy. Overall left ventricular systolic function is normal with, an EF between 55 - 60 %. Septal wall mo tion is delayed and consistent with prior cardiac surgery. The right ventricle is normal in size and function. LA is midly dilated 29-33ml/m2. RA appears enlarged. Aortic valve is trileaflet and is mildly thickened. There is no evidence of aortic regurgitation. There is no evidence of aortic stenosis. The mitral valve leaflets are mildly thickened. Mild mitral regurgitation is present. Mild tricuspid regurgitation present. There is borderline pulmonary hypertension. The right ventr icular systolic pressure, as measured by Doppler, is 37.41mmHg. Trace/mild (physiologic) pulmonic regurgitation. The aortic root size is normal. Normal inferior vena cava with normal inspiratory collapse consistent with estimated right atrial pre ssure of 5 mmHg. There is no pericardial effusion. CONCLUSIONS -------- 1. Sinus rhythm. 2. This was a technically adequate study. 3. The left ventricular size is normal. 4. There is borderline concentric left ventricular hypertrophy. 5. Overall left ventricular systolic function is normal with, an EF between 55 - 60 %. 6. Septal wall motion is delayed and consistent with prior cardiac surgery. 7. LA is midly dilated 29-33ml/m2. 8. RA appears enlarged. 9. Aortic valve is trileaflet and is mildly thickened. 10. The mitral valve leaflets are mildly thickened. 11. Mild mitral regurgitation is present. 12. Mild tricuspid regurgitation present. 13. There is borderline pulmonary hypertension. 14. The right ventricular systolic pressure, as measured by Doppler, is 37.41mmHg. 15. Trace/mild (physiologic) pulmonic regurgitation. 16. The aortic root size is normal. 17. There is no pericardial effusion. BAY STOCKER: Mayo Ferreira RDCS
[2018-08-01 16:58] LABS: Glucose,Whole Blood 181 mg/dL (75-99)
[2018-08-01] MEDS: DOXORUBICIN HCL IV SCH (17:28)
[2018-08-01] MEDS: SODIUM CHLORIDE 0.9% IV SCH ×3 (17:28→17:36)
[2018-08-01] MEDS: VINCRISTINE SULFATE IV SCH (17:35)
[2018-08-01] MEDS: ETOPOSIDE IV SCH (17:36)
[2018-08-01 19:59] LABS: Glucose,Whole Blood 233 mg/dL (75-99)
[2018-08-01] MEDS: ATORVASTATIN 40 MG TAB PO SCH (20:08)
[2018-08-01] MEDS: LISINOPRIL 2.5 MG TAB PO SCH (20:08)
[2018-08-01] MEDS: MONTELUKAST 10 MG TAB PO SCH (20:08)
[2018-08-01] MEDS: ALPRAZolam 0.5 MG TAB PO SCH (20:08)
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
[2018-08-01] MEDS: ZOLPIDEM 5 MG TAB PO PRN (22:34)
--- NOTE | 2018-08-02 00:01 | CONS ---
CONSULTATION CHIEF COMPLAINT: 68-year-old white female for medical management consult. HISTORY OF PRESENT ILLNESS: 68-year-old white female who was in the hospital for 4 days. For medical management, actually was admitted for high-dose infusion chemo. She has had right lower quadrant diarrhea off and on. She had a colonoscopy 03/02, which was negative. CT scan showed inflammation of the right colon, cecum, underwent surgery, which showed diffuse large B- cell lymphoma infiltrating the colon and terminal ileum involvement with 1 mesocolon lymph node that was diagnosed by myself. She is admitted at this time for treatment. She had a port placement. She had cycle 1 of high-dose infusional chemotherapy with the ER CH regimen. REVIEW OF SYSTEMS: Fourteen point review of systems negative except for mentioned in HPI. MEDICATIONS: Medications reviewed. PHYSICAL EXAMINATION: Vital signs reviewed. Cardiovascular S1, S2. LUNGS: Clear. GI soft. Hematology negative Homans. Psych fair mood and affect. NEUROLOGIC: Alert and oriented x3. PAST MEDICAL HISTORY: Coronary disease, asthma, cancer, diabetes mellitus, hearing disorder, dyslipidemia, hypertension, osteoarthritis, obstructive sleep apnea, hypothyroidism, multiple surgeries, see list. SOCIAL HISTORY: No smoking. ASSESSMENT: 1. B-cell lymphoma. 2. Hypertension. 3. Coronary artery disease. 4. . 5. Diabetes mellitus. Continue current treatments with home medicines. Continued effusion. Echocardiogram done which showed good ejection fraction. Continue with treatment for diffuse large B- cell lymphoma with an extra morales site. MMODL / IJN: [id number] /
[2018-08-02] MEDS: HYDROcodone/APAP 10-325MG 1 EACH TAB PO PRN ×3 (03:46→17:07)
[2018-08-02] MEDS: SODIUM CHLORIDE 0.9% 1,000 ML IV SCH ×2 (05:33→21:13)
[2018-08-02] MEDS: LEVOTHYROXINE 75 MCG TAB PO SCH (05:33)
[2018-08-02 07:00] LABS: Glucose,Whole Blood 176 mg/dL (75-99)
[2018-08-02 07:57] LABS: Basophils % (A) 0 %; Eosinophils # (A) 0.1 k/uL (0-0.7); Eosinophils % (A) 0 %; HCT 37.3 % (34.0-46.0); HGB 11.2 gm/dL (11.4-16.0); Hypochromasia Marked; Lymphocytes # (A) 0.4 k/uL (1.0-4.8); Lymphocytes % (A) 3 %; MCH 29.4 pg (25.0-35.0); MCHC 29.9 g/dL (31.0-37.0); MCV 98.3 fL (80.0-100.0); Mean Platelet Volume 6.7; Monocytes # (A) 0.3 k/uL (0-1.0); Monocytes % (A) 3 %; Neutrophils # (A) 11.1 k/uL (1.3-7.7); Neutrophils % (A) 93 %; Platelet Count 338 k/uL (150-450); RBC 3.79 m/uL (3.80-5.40); RDW 15.3 % (11.5-15.5); WBC 11.9 k/uL (3.8-10.6)
[2018-08-02 08:08] LABS: ALT 18 U/L (9-52); AST 22 U/L (14-36); Albumin 3.3 g/dL (3.5-5.0); Alkaline Phosphatase 69 U/L (38-126); Anion Gap 6 mmol/L; Blood Urea Nitrogen 14 mg/dL (7-17); Calcium 10.2 mg/dL (8.4-10.2); Carbon Dioxide 26 mmol/L (22-30); Chloride 111 mmol/L (98-107); Glucose 158 mg/dL (74-99); Potassium 4.3 mmol/L (3.5-5.1); Sodium 143 mmol/L (137-145); Total Bilirubin 0.4 mg/dL (0.2-1.3); Total Protein 6.1 g/dL (6.3-8.2); Uric Acid 4.1 mg/dL (3.7-7.4)
[2018-08-02] MEDS: predniSONE 50 MG TAB PO SCH ×2 (08:12→22:41)
[2018-08-02] MEDS: ENOXAPARIN 40 MG/0.4 ML SYRINGE SQ SCH (08:12)
[2018-08-02] MEDS: predniSONE 10 MG TAB PO SCH ×2 (08:12→22:41)
[2018-08-02] MEDS: CARVEDILOL 3.125 MG TAB PO SCH ×2 (08:12→17:54)
[2018-08-02] MEDS: GLIMEPIRIDE 1 MG TAB PO SCH (08:12)
[2018-08-02] MEDS ORDERED: MECLIZINE 25 MG TAB PO PRN (08:13)
[2018-08-02] MEDS: INSULIN ASPART 100 UNIT/ML 1 ML 10 ML VIAL SQ SCH ×4 (09:02→23:51)
[2018-08-02 11:18] LABS: Glucose,Whole Blood 104 mg/dL (75-99)
--- NOTE | 2018-08-02 11:43 | P.PN ---
Subjective Progress Note Date: 08/02/18 Principal diagnosis: Large B cell Lymphoma, Timed Chemotherapy R-EPOCH Day 2 of CYcle one R-EPOCH Tolerating treatment well this far, many questions regarding expectations of uw2mixqion discussed today Objective - Vital Signs Vital signs: Vital Signs Temp 97.9 F 08/02/18 08:00 Pulse 57 L 08/02/18 08:00 Resp 18 08/02/18 08:00 BP 128/58 08/02/18 08:00 Pulse Ox 95 08/02/18 08:00 Intake & Output 08/01/18 08/02/18 08/02/18 18:59 06:59 18:59 Intake Total 386.4 1860 Balance 386.4 1860 Weight 112 kg 119 kg Intake: Intake, IV Titration 386.4 800 Amount Sodium Chloride 0.9% 1, 800 000 ml @ 100 mls/hr IV . Q10H [facility] Rx#:[id number] riTUXimab 800 mg In 386.4 Sodium Chloride 0.9% 500 ml 500 ml @ Titrate IV . Q0M NR Rx#:[id number] Oral 1060 Other: Voiding Method Toilet # Voids 1 1 - Exam Constitutional General appearance: no acute distress - EENT Eyes: EOMI, PERRLA ENT: hearing grossly normal, normal oropharynx - Neck Neck: no lymphadenopathy - Respiratory Respiratory: bilateral: CTA - Cardiovascular Rhythm: regular Heart sounds: normal: S1, S2 - Gastrointestinal General gastrointestinal: normal bowel sounds, soft - Integumentary Integumentary: normal - Neurologic Neurologic: CNII-XII intact - Musculoskeletal Musculoskeletal: strength equal bilaterally - Psychiatric Psychiatric: A&O x's 3, appropriate affect - Labs CBC & Chem 7: 08/02/18 07:39 08/02/18 07:39 Labs: Abnormal Lab Results - Last 24 Hours (Table) 08/01/18 08/01/18 08/02/18 Range/Units 16:56 19:57 06:58 WBC (3.8-10.6) k/uL RBC (3.80-5.40) m/uL Hgb (11.4-16.0) gm/dL MCHC (31.0-37.0) g/dL Neutrophils # (1.3-7.7) k/uL Lymphocytes # (1.0-4.8) k/uL Chloride (98-107) mmol/L Glucose (74-99) mg/dL POC Glucose (mg/dL) 181 H 233 H 176 H (75-99) mg/dL Total Protein (6.3-8.2) g/dL Albumin (3.5-5.0) g/dL 08/02/18 08/02/18 08/02/18 Range/Units 07:39 07:39 11:16 WBC 11.9 H (3.8-10.6) k/uL RBC 3.79 L (3.80-5.40) m/uL Hgb 11.2 L (11.4-16.0) gm/dL MCHC 29.9 L (31.0-37.0) g/dL Neutrophils # 11.1 H (1.3-7.7) k/uL Lymphocytes # 0.4 L (1.0-4.8) k/uL Chloride 111 H (98-107) mmol/L Glucose 158 H (74-99) mg/dL POC Glucose (mg/dL) 104 H (75-99) mg/dL Total Protein 6.1 L (6.3-8.2) g/dL Albumin 3.3 L (3.5-5.0) g/dL Assessment and Plan Plan: CT scan, PET scan, operative report and pathology report reviewed Thrombosis Risk Factor Assmnt - DVT/VTE Prophylaxis DVT/VTE Prophylaxis: Pharmacologic Prophylaxis ordered Assessment and Plan (1) Diffuse large B-cell lymphoma of extranodal site - High Risk Features at the location of disease therefore recs with R-EPOCH - Cycle One, Day Two - Allergy to Allopurinol, therefore monitor for tumor lysis and administer Eletek if needed - PPI with High Dose Prednisone - PRN ANtimetics - Daily CBC, CMP and Uric Acid Monitoring Plan: the patient has Multiple other medical problems, which are overall well controlled in the outpatient setting. Home meds will be reviewed and reconciled. , Dr. Padilla Santiago for medical management Lovenox has been ordered for DVT prophylaxis
[2018-08-02] MEDS: PANTOPRAZOLE 40 MG TABLET PO SCH ×2 (12:15→17:54)
[2018-08-02] MEDS: SALT AND SODA MOUTHWASH 1,000 ML PO SCH ×3 (17:07→22:42)
[2018-08-02 17:18] LABS: Glucose,Whole Blood 157 mg/dL (75-99)
[2018-08-02 20:03] LABS: Glucose,Whole Blood 161 mg/dL (75-99)
[2018-08-02] MEDS: ONDANSETRON 16 MG in SODIUM CHLORIDE 0.9% 50 ML IVPB SCH (21:12)
[2018-08-02] MEDS: ETOPOSIDE IV SCH (22:10)
[2018-08-02] MEDS: SODIUM CHLORIDE 0.9% IV SCH ×3 (22:10→22:12)
[2018-08-02] MEDS: VINCRISTINE SULFATE IV SCH (22:12)
[2018-08-02] MEDS: DOXORUBICIN HCL IV SCH (22:12)
[2018-08-02] MEDS: ALPRAZolam 0.5 MG TAB PO SCH (22:40)
[2018-08-02] MEDS: LISINOPRIL 2.5 MG TAB PO SCH (22:41)
[2018-08-02] MEDS: MONTELUKAST 10 MG TAB PO SCH (22:41)
[2018-08-02] MEDS: ZOLPIDEM 5 MG TAB PO PRN (22:41)
[2018-08-02] MEDS: ATORVASTATIN 40 MG TAB PO SCH (22:41)
[2018-08-02] MEDS: FAMOTIDINE 20 MG/2 ML VIAL IV SCH (22:46)
[2018-08-03] MEDS: SODIUM CHLORIDE 0.9% 1,000 ML IV SCH ×2 (03:16→12:27)
[2018-08-03] MEDS: LEVOTHYROXINE 75 MCG TAB PO SCH (05:50)
[2018-08-03] MEDS: CARVEDILOL 3.125 MG TAB PO SCH (05:52)
[2018-08-03 07:47] LABS: Glucose,Whole Blood 183 mg/dL (75-99)
[2018-08-03 07:55] LABS: Basophils % (A) 0 %; Eosinophils % (A) 0 %; HGB 10.5 gm/dL (11.4-16.0); Hypochromasia Moderate; Lymphocytes # (A) 0.4 k/uL (1.0-4.8); Lymphocytes % (A) 6 %; MCH 29.5 pg (25.0-35.0); MCHC 30.9 g/dL (31.0-37.0); MCV 95.6 fL (80.0-100.0); Mean Platelet Volume 6.9; Monocytes # (A) 0.2 k/uL (0-1.0); Monocytes % (A) 4 %; Neutrophils # (A) 5.6 k/uL (1.3-7.7); Neutrophils % (A) 89 %; Platelet Count 279 k/uL (150-450); RBC 3.56 m/uL (3.80-5.40); RDW 15.5 % (11.5-15.5); WBC 6.2 k/uL (3.8-10.6)
[2018-08-03] MEDS: SALT AND SODA MOUTHWASH 1,000 ML PO SCH ×4 (08:01→21:10)
[2018-08-03] MEDS: PANTOPRAZOLE 40 MG TABLET PO SCH ×2 (08:01→17:46)
[2018-08-03] MEDS: INSULIN ASPART 100 UNIT/ML 1 ML 10 ML VIAL SQ SCH ×4 (08:02→21:06)
[2018-08-03] MEDS: predniSONE 10 MG TAB PO SCH ×2 (08:02→21:07)
[2018-08-03] MEDS: ENOXAPARIN 40 MG/0.4 ML SYRINGE SQ SCH (08:02)
[2018-08-03] MEDS: GLIMEPIRIDE 1 MG TAB PO SCH (08:02)
[2018-08-03] MEDS: predniSONE 50 MG TAB PO SCH ×2 (08:02→21:07)
[2018-08-03 08:13] LABS: ALT 22 U/L (9-52); AST 16 U/L (14-36); Albumin 2.9 g/dL (3.5-5.0); Alkaline Phosphatase 57 U/L (38-126); Anion Gap 3 mmol/L; Blood Urea Nitrogen 19 mg/dL (7-17); Calcium 9.8 mg/dL (8.4-10.2); Carbon Dioxide 25 mmol/L (22-30); Chloride 114 mmol/L (98-107); Glucose 177 mg/dL (74-99); Potassium 4.4 mmol/L (3.5-5.1); Sodium 142 mmol/L (137-145); Total Bilirubin 0.3 mg/dL (0.2-1.3); Total Protein 5.5 g/dL (6.3-8.2); Uric Acid 4.6 mg/dL (3.7-7.4)
[2018-08-03] MEDS ORDERED: LISINOPRIL 2.5 MG TAB PO STA (11:14)
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
[2018-08-03 11:23] LABS: Glucose,Whole Blood 147 mg/dL (75-99)
[2018-08-03 12:49] LABS: T4, Free (Free Thyroxine) 1.09 ng/dL (0.78-2.19)
[2018-08-03] MEDS ORDERED: ALBUTEROL NEBULIZED 2.5 MG/3 ML INHALATION STA (15:58)
[2018-08-03 17:13] LABS: Glucose,Whole Blood 173 mg/dL (75-99)
--- NOTE | 2018-08-03 18:12 | PN ---
PROGRESS NOTE SUBJECTIVE: Yfkfc[age]kas-[age]ob-old white female who was admitted to the hospital for doxorubicin treatment through the IV. She has been having bradycardia into the 35 [address]. [address] and Dr. Peralta continue with the doxorubicin and are monitoring EKG. She was seen by Cardiology apparently and has sinus bradycardia. Beta-blockers were discontinued today. She has a history of breathing issues, for which she takes updraft. I will possibly add albuterol updraft q.6 hours and STAT to possibly raise the pulse rate up while she is getting this treatment. CARDIOVASCULAR: S1, S2. Bradycardic. Lungs are clear. Mild wheeze. PSYCH: Appears anxious and nervous. ENDOCRINE: BMI is over 40. ASSESSMENT: 1. Lymphoma, beta cell type, right appendix area. 2. History of asthma. 3. Dyslipidemia. 4. Hypertension. 5. Diabetes. 6. Vertigo. Continue current treatments. Add albuterol updrafts q.6 hours and STAT to see if this improves her pulse and her breathing. MMODL / IJN: [id number] /
[2018-08-03 19:51] LABS: Glucose,Whole Blood 240 mg/dL (75-99)
[2018-08-03] MEDS: FAMOTIDINE 20 MG/2 ML VIAL IV SCH (19:55)
[2018-08-03] MEDS: DOXORUBICIN HCL IV SCH (19:55)
[2018-08-03] MEDS: ETOPOSIDE IV SCH (19:55)
[2018-08-03] MEDS: SODIUM CHLORIDE 0.9% IV SCH ×3 (19:55)
[2018-08-03] MEDS: VINCRISTINE SULFATE IV SCH (19:55)
[2018-08-03] MEDS: ONDANSETRON 16 MG in SODIUM CHLORIDE 0.9% 50 ML IVPB SCH (19:56)
[2018-08-03] MEDS: ALBUTEROL NEBULIZED 2.5 MG/3 ML INHALATION SCH (20:05)
--- NOTE | 2018-08-03 20:13 | P.PN ---
Subjective Progress Note Date: 08/03/18 The pt is on D #3 of R-EPOCH. She denied any specific complaints. Overnight, however , her HR has been dropping into the 30's off and on, with frequent PVCs. This is occurring even when the pt is awake. She denied any symptoms whatsoever, including dizziness/palpitations/chest pain/SOB/N/v. No f/c. Objective - Vital Signs Vital signs: Vital Signs Temp 98.2 F 08/03/18 18:16 Pulse 62 08/03/18 18:16 Resp 12 08/03/18 18:16 BP 125/66 08/03/18 18:16 Pulse Ox 96 08/03/18 18:16 Intake & Output 08/03/18 08/03/18 08/04/18 06:59 18:59 06:59 Intake Total 3447.906 1096 420 Balance 3447.906 1096 420 Weight 119.5 kg Intake: Intake, IV Titration 7789.393 0192 Amount Cyclophosphamide 1,600 mg 139.2 In Sodium Chloride 0.9% 500 ml 500 ml @ 1160 mls/ hr IV ONCE ONE Rx#: [id number] DOXOrubicin HCL 22 mg In 130.5 88 Sodium Chloride 0.9% 250 ml @ 10.875 mls/hr IV Q24H [facility] Rx#:[id number] Etoposide 110 mg In 252.756 184 Sodium Chloride 0.9% 500 ml 500 ml @ 21.063 mls/hr IV Q24H [facility] Rx#: [id number] Ondansetron 16 mg In 100 Sodium Chloride 0.9% 50 ml @ 100 mls/hr IVPB Q24H [facility] Rx#:[id number] Sodium Chloride 0.9% 1, 1200 800 000 ml @ 100 mls/hr IV . Q10H [facility] Rx#:[id number] vinCRIStine SULFATE 0.9 25.45 24 mg In Sodium Chloride 0.9 % 50 ml @ 2.121 mls/hr IV Q24H [facility] Rx#:[id number] Oral 1600 420 Other: Voiding Method Toilet Toilet # Voids 5 2 # Bowel Movements 1 2 - Constitutional General appearance: Present: no acute distress - EENT Eyes: Present: EOMI ENT: Present: hearing grossly normal, normal oropharynx - Respiratory Respiratory: bilateral: CTA - Cardiovascular Rhythm: regular Heart sounds: normal: S1, S2 - Gastrointestinal General gastrointestinal: Present: normal bowel sounds, soft - Integumentary Integumentary: Present: normal - Neurologic Neurologic: Present: CNII-XII intact - Musculoskeletal Musculoskeletal: Present: strength equal bilaterally - Psychiatric Psychiatric: Present: A&O x's 3, appropriate affect - Labs CBC & Chem 7: 08/03/18 07:35 08/03/18 07:35 Labs: Abnormal Lab Results - Last 24 Hours (Table) 08/02/18 08/03/18 08/03/18 Range/Units 20:01 07:35 07:35 RBC 3.56 L (3.80-5.40) m/uL Hgb 10.5 L (11.4-16.0) gm/dL MCHC 30.9 L (31.0-37.0) g/dL Lymphocytes # 0.4 L (1.0-4.8) k/uL Chloride 114 H (98-107) mmol/L BUN 19 H (7-17) mg/dL Glucose 177 H (74-99) mg/dL POC Glucose (mg/dL) 161 H (75-99) mg/dL Total Protein 5.5 L (6.3-8.2) g/dL Albumin 2.9 L (3.5-5.0) g/dL TSH (0.465-4.680) mIU/L 08/03/18 08/03/18 08/03/18 Range/Units 07:35 07:44 11:19 RBC (3.80-5.40) m/uL Hgb (11.4-16.0) gm/dL MCHC (31.0-37.0) g/dL Lymphocytes # (1.0-4.8) k/uL Chloride (98-107) mmol/L BUN (7-17) mg/dL Glucose (74-99) mg/dL POC Glucose (mg/dL) 183 H 147 H (75-99) mg/dL Total Protein (6.3-8.2) g/dL Albumin (3.5-5.0) g/dL TSH 0.186 L (0.465-4.680) mIU/L 08/03/18 Range/Units 17:12 RBC (3.80-5.40) m/uL Hgb (11.4-16.0) gm/dL MCHC (31.0-37.0) g/dL Lymphocytes # (1.0-4.8) k/uL Chloride (98-107) mmol/L BUN (7-17) mg/dL Glucose (74-99) mg/dL POC Glucose (mg/dL) 173 H (75-99) mg/dL Total Protein (6.3-8.2) g/dL Albumin (3.5-5.0) g/dL TSH (0.465-4.680) mIU/L Assessment and Plan (1) Diffuse large B-cell lymphoma of extranodal site Narrative/Plan: D # 3 of high dose infusional chemo, specifically R - EPOCH. The pt is tolerating her regimen well subjectively. Her labs are overall satisfactory. There is no evidence of any tumor lysis. Continue treatment assuming heart issues controlled. Continue to monitor with labs and clinical exams Current Visit: Yes Status: Acute Code(s): C83.39 - DIFFUSE LARGE B-CELL LYMPHOMA, EXTRNOD AND SOLID ORGAN SITES SNOMED Code(s): 129489271 (2) Bradyarrhythmia Narrative/Plan: The pt is having sinus arrythmia with frequent PVCs. She is asymptomatic. Electrolytes, including K+ and Mag were WNL. ECHO from 08/01 showed normal EF. Review of the literature shows arrythmias developing in pts on doxorubicin, but evidence establishing definite cause and effect is quite weak, especially in pt' s without cardiomyopathy. Her other chemo agents are not typically associated with bradyarrythmia directly either. Cardiology has been consulted and will see the pt. Await their opinion. Carvedilol has been held. Continue chemo for now with close monitoring. Current Visit: Yes Status: Acute Code(s): I49.8 - OTHER SPECIFIED CARDIAC ARRHYTHMIAS SNOMED Code(s): 176978309 (3) Anemia aplastic aregenerative Narrative/Plan: Mild. No intervention needed at this level Current Visit: Yes Status: Acute Code(s): D61.9 - APLASTIC ANEMIA, UNSPECIFIED SNOMED Code(s): 402477296 Plan: Defer to Dr Santiago and Cardiology for management of her multiple other medical problems
[2018-08-03] MEDS: ATORVASTATIN 40 MG TAB PO SCH (21:07)
[2018-08-03] MEDS: MONTELUKAST 10 MG TAB PO SCH (21:07)
[2018-08-03] MEDS: ALPRAZolam 0.5 MG TAB PO SCH (21:10)
[2018-08-03 23:53] LABS: Glucose,Whole Blood 130 mg/dL (75-99)
[2018-08-04] MEDS: SODIUM CHLORIDE 0.9% 1,000 ML IV SCH ×3 (00:31→17:52)
[2018-08-04] MEDS: LEVOTHYROXINE 75 MCG TAB PO SCH (05:15)
[2018-08-04 06:53] LABS: Basophils % (A) 0 %; Eosinophils # (A) 0.1 k/uL (0-0.7); Eosinophils % (A) 1 %; HCT 31.7 % (34.0-46.0); HGB 9.6 gm/dL (11.4-16.0); Hypochromasia Slight; Lymphocytes # (A) 0.3 k/uL (1.0-4.8); Lymphocytes % (A) 8 %; MCH 28.9 pg (25.0-35.0); MCHC 30.4 g/dL (31.0-37.0); Monocytes # (A) 0.2 k/uL (0-1.0); Monocytes % (A) 5 %; Neutrophils # (A) 3.9 k/uL (1.3-7.7); Neutrophils % (A) 86 %; Platelet Count 290 k/uL (150-450); RBC 3.34 m/uL (3.80-5.40); RDW 15.4 % (11.5-15.5); WBC 4.5 k/uL (3.8-10.6)
[2018-08-04 07:26] LABS: Glucose,Whole Blood 177 mg/dL (75-99)
[2018-08-04 07:30] LABS: ALT 25 U/L (9-52); AST 13 U/L (14-36); Albumin 2.7 g/dL (3.5-5.0); Alkaline Phosphatase 47 U/L (38-126); Anion Gap 6 mmol/L; Blood Urea Nitrogen 19 mg/dL (7-17); Calcium 9.7 mg/dL (8.4-10.2); Carbon Dioxide 23 mmol/L (22-30); Chloride 114 mmol/L (98-107); Glucose 179 mg/dL (74-99); Potassium 3.9 mmol/L (3.5-5.1); Sodium 143 mmol/L (137-145); Total Bilirubin 0.4 mg/dL (0.2-1.3); Total Protein 5.1 g/dL (6.3-8.2); Uric Acid 4.6 mg/dL (3.7-7.4)
[2018-08-04] MEDS: predniSONE 50 MG TAB PO SCH ×2 (07:36→21:36)
[2018-08-04] MEDS: LISINOPRIL 5 MG TAB PO SCH (07:36)
[2018-08-04] MEDS: predniSONE 10 MG TAB PO SCH ×2 (07:36→21:37)
[2018-08-04] MEDS: PANTOPRAZOLE 40 MG TABLET PO SCH ×2 (07:36→17:33)
[2018-08-04] MEDS: SALT AND SODA MOUTHWASH 1,000 ML PO SCH ×4 (07:36→21:37)
[2018-08-04] MEDS: GLIMEPIRIDE 1 MG TAB PO SCH (07:36)
[2018-08-04] MEDS: ENOXAPARIN 40 MG/0.4 ML SYRINGE SQ SCH (07:36)
[2018-08-04] MEDS: INSULIN ASPART 100 UNIT/ML 1 ML 10 ML VIAL SQ SCH ×4 (07:49→21:36)
[2018-08-04] MEDS: ALBUTEROL NEBULIZED 2.5 MG/3 ML INHALATION SCH ×4 (08:30→19:57)
[2018-08-04] MEDS: KETOTIFEN 0.025% OPHTH DROPS 5 ML BTL BOTH EYES SCH ×2 (08:57→21:36)
[2018-08-04 11:19] LABS: Glucose,Whole Blood 149 mg/dL (75-99)
[2018-08-04] MEDS: ONDANSETRON 16 MG in SODIUM CHLORIDE 0.9% 50 ML IVPB SCH (14:03)
[2018-08-04] MEDS: FAMOTIDINE 20 MG/2 ML VIAL IV SCH (14:06)
--- NOTE | 2018-08-04 14:17 | P.PN ---
Subjective This is a pleasant 68-year-old female past medical history significant for coronary artery bypass grafting, diabetes mellitus, hypertension , dyslipidemia, B-cell lymphoma, hypothyroidism and asthma. She follows with Dr. Caro in the office. We have been asked to see in consultation secondary to bradycardia. She has been in the hospital since 08/01 for her first round of chemotherapy. We are following her for bradycardia noted on the monitor. Echocardiogram obtained reveals preserved left systolic function with EF 55-60% . Coreg was discontinued yesterday. She continues to have heart rates in the range of 36-70, however the lower heart rates are occurring while she is sleeping and when she is awake she is asymptomatic. She denies chest pain, shortness of breath, dizziness or palpitations. Blood pressure 149/72 heart rate 44. Currently maintained on lisinopril 5 mg daily. Laboratory data reviewed, WBC 4.5, hemoglobin 9.6, platelets 290, sodium 143, potassium 3.9, creatinine 0.62., TSH 0.186, free T4 1.09. Her third round of chemo was held last night due to bradycardia. GENERAL: This is a 68-year-old female in no apparent distress at the time of my examination. Obese. HEENT: Head is atraumatic, normocephalic. Pupils are equal, round. Sclerae anicteric. Conjunctivae are clear. Mucous membranes of the mouth are moist. Neck is supple. There is no jugular venous distention. No carotid bruit is heard. LUNGS: Clear to auscultation no wheezes, rales or rhonchi. No chest wall tenderness is noted on palpation or with deep breathing. HEART: Regular rate and rhythm without murmurs, rubs or gallops. S1 and S2 heard. EXTREMITIES: No evidence of peripheral edema and no calf tenderness noted. ASSESSMENT Sinus bradycardia while sleeping, asymptomatic. Currently maintained on beta blockers B-cell lymphoma undergoing first round of chemotherapy Hypothyroidism History of coronary artery disease status post bypass grafting Hypertension Dyslipidemia PLAN Chemotherapy may be resumed as previously ordered. Bradycardia is noted and she is asymptomatic, most likely related to sleep apnea. TSH low, recommend adjustment of levothyroxine per primary care team. Nurse Practitioner note has been reviewed, I agree with a documented findings and plan of care. Patient was seen and examined. Objective - Vital Signs Vital signs: Vital Signs Temp 98 F 08/04/18 12:00 Pulse 44 L 12/20/18 12:00 Resp 20 08/04/18 12:00 BP 149/72 08/04/18 12:00 Pulse Ox 98 08/04/18 12:00 Intake & Output 08/03/18 08/04/18 08/04/18 18:59 06:59 18:59 Intake Total 1096 2222.62 480 Balance 1096 2222.62 480 Weight 120 kg Intake: Intake, IV Titration 1096 1382.62 Amount Cyclophosphamide 1,600 mg 46.4 In Sodium Chloride 0.9% 500 ml 500 ml @ 1160 mls/ hr IV ONCE ONE Rx#: [id number] DOXOrubicin HCL 22 mg In 88 43.5 Sodium Chloride 0.9% 250 ml @ 10.875 mls/hr IV Q24H [facility] Rx#:[id number] Etoposide 110 mg In 184 84.24 Sodium Chloride 0.9% 500 ml 500 ml @ 21.063 mls/hr IV Q24H [facility] Rx#: [id number] Ondansetron 16 mg In 800 Sodium Chloride 0.9% 50 ml @ 100 mls/hr IVPB Q24H [facility] Rx#:[id number] Sodium Chloride 0.9% 1, 800 400 000 ml @ 100 mls/hr IV . Q10H [facility] Rx#:[id number] vinCRIStine SULFATE 0.9 24 8.48 mg In Sodium Chloride 0.9 % 50 ml @ 2.121 mls/hr IV Q24H [facility] Rx#:[id number] Oral 840 480 Other: Voiding Method Toilet Toilet # Voids 2 2 3 # Bowel Movements 2 2 - Labs CBC & Chem 7: 08/04/18 06:31 08/04/18 06:31 Labs: Abnormal Lab Results - Last 24 Hours (Table) 08/03/18 08/03/18 08/03/18 Range/Units 17:12 19:49 23:51 RBC (3.80-5.40) m/uL Hgb (11.4-16.0) gm/dL Hct (34.0-46.0) % MCHC (31.0-37.0) g/dL Lymphocytes # (1.0-4.8) k/uL Chloride (98-107) mmol/L BUN (7-17) mg/dL Glucose (74-99) mg/dL POC Glucose (mg/dL) 173 H 240 H 130 H (75-99) mg/dL AST (14-36) U/L Total Protein (6.3-8.2) g/dL Albumin (3.5-5.0) g/dL 08/04/18 08/04/18 08/04/18 Range/Units 06:31 06:31 07:08 RBC 3.34 L (3.80-5.40) m/uL Hgb 9.6 L (11.4-16.0) gm/dL Hct 31.7 L (34.0-46.0) % MCHC 30.4 L (31.0-37.0) g/dL Lymphocytes # 0.3 L (1.0-4.8) k/uL Chloride 114 H (98-107) mmol/L BUN 19 H (7-17) mg/dL Glucose 179 H (74-99) mg/dL POC Glucose (mg/dL) 177 H (75-99) mg/dL AST 13 L (14-36) U/L Total Protein 5.1 L (6.3-8.2) g/dL Albumin 2.7 L (3.5-5.0) g/dL 08/04/18 Range/Units 11:17 RBC (3.80-5.40) m/uL Hgb (11.4-16.0) gm/dL Hct (34.0-46.0) % MCHC (31.0-37.0) g/dL Lymphocytes # (1.0-4.8) k/uL Chloride (98-107) mmol/L BUN (7-17) mg/dL Glucose (74-99) mg/dL POC Glucose (mg/dL) 149 H (75-99) mg/dL AST (14-36) U/L Total Protein (6.3-8.2) g/dL Albumin (3.5-5.0) g/dL
[2018-08-04] MEDS: SODIUM CHLORIDE 0.9% IV SCH ×3 (14:52→14:53)
[2018-08-04] MEDS: DOXORUBICIN HCL IV SCH (14:52)
[2018-08-04] MEDS: ETOPOSIDE IV SCH (14:53)
[2018-08-04] MEDS: VINCRISTINE SULFATE IV SCH (14:53)
[2018-08-04 17:34] LABS: Glucose,Whole Blood 192 mg/dL (75-99)
--- NOTE | 2018-08-04 18:05 | P.PN ---
Subjective Progress Note Date: 08/04/18 The patient has completed day 2 of her regimen. Chemotherapy was held last night, due to her cardiac arrhythmias. However the patient remains asymptomatic and denies any chest pain, significant palpitations, shortness of breath, headaches or dizziness. No history of nausea/vomiting/diarrhea. Objective - Vital Signs Vital signs: Vital Signs Temp 98.6 F 08/04/18 16:00 Pulse 52 L 08/04/18 16:09 Resp 14 08/04/18 16:09 BP 149/86 08/04/18 16:00 Pulse Ox 96 08/04/18 16:00 Intake & Output 08/03/18 08/04/18 08/04/18 18:59 06:59 18:59 Intake Total 1096 2222.62 480 Balance 1096 2222.62 480 Weight 120 kg Intake: Intake, IV Titration 1096 1382.62 Amount Cyclophosphamide 1,600 mg 46.4 In Sodium Chloride 0.9% 500 ml 500 ml @ 1160 mls/ hr IV ONCE ONE Rx#: [id number] DOXOrubicin HCL 22 mg In 88 43.5 Sodium Chloride 0.9% 250 ml @ 10.875 mls/hr IV Q24H [facility] Rx#:[id number] Etoposide 110 mg In 184 84.24 Sodium Chloride 0.9% 500 ml 500 ml @ 21.063 mls/hr IV Q24H [facility] Rx#: [id number] Ondansetron 16 mg In 800 Sodium Chloride 0.9% 50 ml @ 100 mls/hr IVPB Q24H [facility] Rx#:[id number] Sodium Chloride 0.9% 1, 800 400 000 ml @ 100 mls/hr IV . Q10H [facility] Rx#:[id number] vinCRIStine SULFATE 0.9 24 8.48 mg In Sodium Chloride 0.9 % 50 ml @ 2.121 mls/hr IV Q24H [facility] Rx#:[id number] Oral 840 480 Other: Voiding Method Toilet Toilet # Voids 2 2 3 # Bowel Movements 2 2 - Constitutional General appearance: Present: no acute distress - EENT Eyes: Present: EOMI ENT: Present: hearing grossly normal, normal oropharynx - Respiratory Respiratory: bilateral: CTA - Cardiovascular Rhythm: regular Heart sounds: normal: S1, S2 - Gastrointestinal General gastrointestinal: Present: normal bowel sounds, soft - Integumentary Integumentary: Present: normal - Neurologic Neurologic: Present: CNII-XII intact - Musculoskeletal Musculoskeletal: Present: strength equal bilaterally - Psychiatric Psychiatric: Present: A&O x's 3, appropriate affect - Labs CBC & Chem 7: 08/04/18 06:31 08/04/18 06:31 Labs: Abnormal Lab Results - Last 24 Hours (Table) 08/03/18 08/03/18 08/04/18 Range/Units 19:49 23:51 06:31 RBC 3.34 L (3.80-5.40) m/uL Hgb 9.6 L (11.4-16.0) gm/dL Hct 31.7 L (34.0-46.0) % MCHC 30.4 L (31.0-37.0) g/dL Lymphocytes # 0.3 L (1.0-4.8) k/uL Chloride (98-107) mmol/L BUN (7-17) mg/dL Glucose (74-99) mg/dL POC Glucose (mg/dL) 240 H 130 H (75-99) mg/dL AST (14-36) U/L Total Protein (6.3-8.2) g/dL Albumin (3.5-5.0) g/dL 08/04/18 08/04/18 08/04/18 Range/Units 06:31 07:08 11:17 RBC (3.80-5.40) m/uL Hgb (11.4-16.0) gm/dL Hct (34.0-46.0) % MCHC (31.0-37.0) g/dL Lymphocytes # (1.0-4.8) k/uL Chloride 114 H (98-107) mmol/L BUN 19 H (7-17) mg/dL Glucose 179 H (74-99) mg/dL POC Glucose (mg/dL) 177 H 149 H (75-99) mg/dL AST 13 L (14-36) U/L Total Protein 5.1 L (6.3-8.2) g/dL Albumin 2.7 L (3.5-5.0) g/dL 08/04/18 Range/Units 17:33 RBC (3.80-5.40) m/uL Hgb (11.4-16.0) gm/dL Hct (34.0-46.0) % MCHC (31.0-37.0) g/dL Lymphocytes # (1.0-4.8) k/uL Chloride (98-107) mmol/L BUN (7-17) mg/dL Glucose (74-99) mg/dL POC Glucose (mg/dL) 192 H (75-99) mg/dL AST (14-36) U/L Total Protein (6.3-8.2) g/dL Albumin (3.5-5.0) g/dL Assessment and Plan (1) Diffuse large B-cell lymphoma of extranodal site Narrative/Plan: The patient is tolerating her treatment well subjectively. He will therapy is currently on hold due to the bradycardia arrhythmias. Will resume as soon as she is felt to be okay for the same by cardiology Continue to monitor with clinical exams, and labs. No evidence of tumor lysis so far Current Visit: Yes Status: Acute Code(s): C83.39 - DIFFUSE LARGE B-CELL LYMPHOMA, EXTRNOD AND SOLID ORGAN SITES SNOMED Code(s): 745554143 (2) Bradyarrhythmia Narrative/Plan: This has persisted as noted, the patient continues to be symptomatic from the same. Her heart rate did improve with albuterol that was prescribed by Dr. Santiago. However she reverted back to bradycardia with PVCs subsequently. Electrolytes remained normal. Thyroid study showed mildly decreased TSH but normal T4. Case was discussed with cardiology. Doxorubicin is the only potentially cardiotoxic medications that she is on. However she has no decrease in her ejection fraction which is the typical toxicity. Giorgi arrhythmias have been described in patients on doxorubicin, but these are essentially case reports were small series, with evidence definitely providing a cause-effect relationship quite weak (on my literature review) It was therefore discussed with cardiology to evaluate the patient, and give us an opinion regarding resuming chemotherapy. Carvedilol has been discontinued. Referred to cardiology and her PCP for continued management in this regard Current Visit: Yes Status: Acute Code(s): I49.8 - OTHER SPECIFIED CARDIAC ARRHYTHMIAS SNOMED Code(s): 473414154 (3) Anemia aplastic aregenerative Narrative/Plan: ue to chemotherapy. Hemoglobin has dropped slightlytoday compared to yesterday but still remains in a safe range. Continue to monitor Current Visit: Yes Status: Acute Code(s): D61.9 - APLASTIC ANEMIA, UNSPECIFIED SNOMED Code(s): 357359415
[2018-08-04 20:34] LABS: Glucose,Whole Blood 163 mg/dL (75-99)
[2018-08-04] MEDS: ALPRAZolam 0.5 MG TAB PO SCH (21:28)
[2018-08-04] MEDS: ATORVASTATIN 40 MG TAB PO SCH (21:36)
[2018-08-04] MEDS: MONTELUKAST 10 MG TAB PO SCH (21:36)
[2018-08-04] MEDS: SULFACETAMIDE SOD 10% OPHTH DROPS 15 ML BTL RIGHT EYE SCH (21:37)
[2018-08-05] MEDS: LEVOTHYROXINE 75 MCG TAB PO SCH (05:36)
[2018-08-05] MEDS: SODIUM CHLORIDE 0.9% 1,000 ML IV SCH ×3 (05:37→20:13)
[2018-08-05 07:23] LABS: Glucose,Whole Blood 188 mg/dL (75-99)
[2018-08-05 07:55] LABS: Basophils % (A) 0 %; Eosinophils % (A) 1 %; HCT 31.6 % (34.0-46.0); Hypochromasia Slight; Lymphocytes # (A) 0.3 k/uL (1.0-4.8); Lymphocytes % (A) 9 %; MCH 30.2 pg (25.0-35.0); MCHC 31.6 g/dL (31.0-37.0); MCV 95.4 fL (80.0-100.0); Mean Platelet Volume 7.4; Monocytes # (A) 0.1 k/uL (0-1.0); Monocytes % (A) 2 %; Neutrophils # (A) 3.2 k/uL (1.3-7.7); Neutrophils % (A) 88 %; Platelet Count 269 k/uL (150-450); RBC 3.31 m/uL (3.80-5.40); RDW 15.2 % (11.5-15.5); WBC 3.6 k/uL (3.8-10.6)
[2018-08-05] MEDS: LISINOPRIL 5 MG TAB PO SCH ×2 (08:10→22:20)
[2018-08-05] MEDS: predniSONE 10 MG TAB PO SCH ×2 (08:10→22:27)
[2018-08-05] MEDS: PANTOPRAZOLE 40 MG TABLET PO SCH ×2 (08:10→17:01)
[2018-08-05] MEDS: predniSONE 50 MG TAB PO SCH ×2 (08:10→22:26)
[2018-08-05] MEDS: INSULIN ASPART 100 UNIT/ML 1 ML 10 ML VIAL SQ SCH ×4 (08:11→22:29)
[2018-08-05] MEDS: ENOXAPARIN 40 MG/0.4 ML SYRINGE SQ SCH (08:11)
[2018-08-05] MEDS: GLIMEPIRIDE 1 MG TAB PO SCH (08:12)
[2018-08-05] MEDS: KETOTIFEN 0.025% OPHTH DROPS 5 ML BTL BOTH EYES SCH ×2 (08:13→22:27)
[2018-08-05] MEDS: SALT AND SODA MOUTHWASH 1,000 ML PO SCH ×4 (08:13→22:29)
[2018-08-05 08:14] LABS: ALT 17 U/L (9-52); AST 14 U/L (14-36); Albumin 2.7 g/dL (3.5-5.0); Alkaline Phosphatase 38 U/L (38-126); Anion Gap 5 mmol/L; Blood Urea Nitrogen 17 mg/dL (7-17); Calcium 9.7 mg/dL (8.4-10.2); Carbon Dioxide 26 mmol/L (22-30); Chloride 111 mmol/L (98-107); Glucose 182 mg/dL (74-99); Potassium 4.5 mmol/L (3.5-5.1); Sodium 142 mmol/L (137-145); Total Bilirubin 0.7 mg/dL (0.2-1.3); Uric Acid 4.7 mg/dL (3.7-7.4)
--- NOTE | 2018-08-05 09:47 | P.PN ---
Subjective This is a pleasant 68-year-old female past medical history significant for coronary artery bypass grafting, diabetes mellitus, hypertension , dyslipidemia, B-cell lymphoma, hypothyroidism and asthma. She follows with Dr. Caro in the office. We have been asked to see in consultation secondary to bradycardia. She has been in the hospital since 08/01 for her first round of chemotherapy. We are following her for bradycardia noted on the monitor. Echocardiogram obtained reveals preserved left systolic function with EF 55-60% . Coreg was has been discontinued. Heart rates have been in the mid 40 to low 50 range. Chemotherapy was resumed yesterday. Blood pressure 137/60. Currently maintained on lisinopril 5 mg daily. She denies chest pain, shortness of breath , dizziness or palpitations. GENERAL: This is a 68-year-old female in no apparent distress at the time of my examination. Obese. HEENT: Head is atraumatic, normocephalic. Pupils are equal, round. Sclerae anicteric. Conjunctivae are clear. Mucous membranes of the mouth are moist. Neck is supple. There is no jugular venous distention. No carotid bruit is heard. LUNGS: Clear to auscultation no wheezes, rales or rhonchi. No chest wall tenderness is noted on palpation or with deep breathing. HEART: Regular rate and rhythm without murmurs, rubs or gallops. S1 and S2 heard. EXTREMITIES: No evidence of peripheral edema and no calf tenderness noted. ASSESSMENT Sinus bradycardia while sleeping, asymptomatic. Currently maintained on beta blockers B-cell lymphoma undergoing first round of chemotherapy Hypothyroidism History of coronary artery disease status post bypass grafting Hypertension Dyslipidemia PLAN Stable from a cardiac perspective. Increase lisinopril to 5 mg BID for elevated blood pressures. Follow up with Dr. Caro upon discharge. Recommend outpatient evaluation of sleep apnea with Dr. Solorio. We will continue to follow as needed, please feel free to call with further questions or concerns. Nurse Practitioner note has been reviewed, I agree with a documented findings and plan of care. Patient was seen and examined. Objective - Vital Signs Vital signs: Vital Signs Temp 97 F L 08/05/18 08:00 Pulse 97 08/05/18 08:00 Resp 20 08/05/18 08:00 BP 137/60 08/05/18 08:00 Pulse Ox 96 08/05/18 08:00 Intake & Output 08/04/18 08/05/18 08/05/18 18:59 06:59 18:59 Intake Total 480 1100 Balance 480 1100 Intake: Intake, IV Titration 1100 Amount Sodium Chloride 0.9% 1, 1100 000 ml @ 100 mls/hr IV . Q10H [facility] Rx#:[id number] Oral 480 Other: Voiding Method Toilet Toilet # Voids 3 2 # Bowel Movements 2 - Labs CBC & Chem 7: 08/05/18 07:21 08/05/18 07:21 Labs: Abnormal Lab Results - Last 24 Hours (Table) 08/04/18 08/04/18 08/04/18 Range/Units 11:17 17:33 20:32 WBC (3.8-10.6) k/uL RBC (3.80-5.40) m/uL Hgb (11.4-16.0) gm/dL Hct (34.0-46.0) % Lymphocytes # (1.0-4.8) k/uL Chloride (98-107) mmol/L Glucose (74-99) mg/dL POC Glucose (mg/dL) 149 H 192 H 163 H (75-99) mg/dL Total Protein (6.3-8.2) g/dL Albumin (3.5-5.0) g/dL 08/05/18 08/05/18 08/05/18 Range/Units 07:21 07:21 07:21 WBC 3.6 L (3.8-10.6) k/uL RBC 3.31 L (3.80-5.40) m/uL Hgb 10.0 L (11.4-16.0) gm/dL Hct 31.6 L (34.0-46.0) % Lymphocytes # 0.3 L (1.0-4.8) k/uL Chloride 111 H (98-107) mmol/L Glucose 182 H (74-99) mg/dL POC Glucose (mg/dL) 188 H (75-99) mg/dL Total Protein 5.0 L (6.3-8.2) g/dL Albumin 2.7 L (3.5-5.0) g/dL
[2018-08-05 11:42] LABS: Glucose,Whole Blood 75 mg/dL (75-99)
[2018-08-05] MEDS: ALBUTEROL NEBULIZED 2.5 MG/3 ML INHALATION SCH ×4 (12:41→21:51)
--- NOTE | 2018-08-05 13:49 | PN ---
PROGRESS NOTE SUBJECTIVE: A 68-year-old white female with bradycardia and asthma. She is being treated for lymphoma, B-cell lymphoma, with 5 day chemotherapy in the hospital. Patient's heart rate is increased with her albuterol updrafts I ordered yesterday. She has also increased in to the 40s on current chemo through the IV. She is feeling better. CARDIOVASCULAR: S1, S2, charlie. Lungs are clear. GI: Soft. HEMATOLOGY: Negative Homans. ASSESSMENT: 1. B-cell lymphoma. 2. Asthma. 3. Obesity. Continue current treatments. Follow up in the next 24 to 48 hours. Monitor bradycardia with Cardiology and continue updrafts. MMODL / IJN: [id number] /
[2018-08-05 17:24] LABS: Glucose,Whole Blood 143 mg/dL (75-99)
[2018-08-05] MEDS ORDERED: VINCRISTINE SULFATE IV SCH (18:00)
[2018-08-05] MEDS ORDERED: SODIUM CHLORIDE 0.9% IV SCH ×3 (18:00)
[2018-08-05] MEDS ORDERED: ETOPOSIDE IV SCH (18:00)
[2018-08-05] MEDS ORDERED: DOXORUBICIN HCL IV SCH (18:00)
[2018-08-05] MEDS: ONDANSETRON 16 MG in SODIUM CHLORIDE 0.9% 50 ML IVPB SCH (18:07)
[2018-08-05] MEDS: FAMOTIDINE 20 MG/2 ML VIAL IV SCH (18:07)
[2018-08-05 20:40] LABS: Glucose,Whole Blood 146 mg/dL (75-99)
[2018-08-05] MEDS: ALPRAZolam 0.5 MG TAB PO SCH (22:20)
[2018-08-05] MEDS: MONTELUKAST 10 MG TAB PO SCH (22:26)
[2018-08-05] MEDS: ATORVASTATIN 40 MG TAB PO SCH (22:26)
[2018-08-05] MEDS: SULFACETAMIDE SOD 10% OPHTH DROPS 15 ML BTL RIGHT EYE SCH (22:27)
[2018-08-06 03:03] VITALS: RESP 16
[2018-08-06] MEDS: LEVOTHYROXINE 75 MCG TAB PO SCH (06:24)
[2018-08-06 07:09] LABS: Glucose,Whole Blood 159 mg/dL (75-99)
[2018-08-06 07:11] LABS: Basophils % (A) 0 %; Eosinophils % (A) 1 %; HCT 32.3 % (34.0-46.0); HGB 9.9 gm/dL (11.4-16.0); Hypochromasia Slight; Lymphocytes # (A) 0.3 k/uL (1.0-4.8); Lymphocytes % (A) 9 %; MCH 29.1 pg (25.0-35.0); MCHC 30.5 g/dL (31.0-37.0); MCV 95.3 fL (80.0-100.0); Mean Platelet Volume 6.7; Monocytes % (A) 1 %; Neutrophils # (A) 3.1 k/uL (1.3-7.7); Neutrophils % (A) 89 %; Platelet Count 255 k/uL (150-450); RBC 3.39 m/uL (3.80-5.40); RDW 15.1 % (11.5-15.5); WBC 3.5 k/uL (3.8-10.6)
[2018-08-06 07:19] LABS: ALT 20 U/L (9-52); AST 15 U/L (14-36); Albumin 2.7 g/dL (3.5-5.0); Alkaline Phosphatase 39 U/L (38-126); Anion Gap 4 mmol/L; Blood Urea Nitrogen 16 mg/dL (7-17); Calcium 9.3 mg/dL (8.4-10.2); Carbon Dioxide 28 mmol/L (22-30); Chloride 106 mmol/L (98-107); Glucose 160 mg/dL (74-99); Potassium 4.2 mmol/L (3.5-5.1); Sodium 138 mmol/L (137-145); Total Bilirubin 0.6 mg/dL (0.2-1.3); Total Protein 4.9 g/dL (6.3-8.2); Uric Acid 4.2 mg/dL (3.7-7.4)
[2018-08-06] MEDS: ALBUTEROL NEBULIZED 2.5 MG/3 ML INHALATION SCH ×4 (08:18→20:07)
[2018-08-06] MEDS: KETOTIFEN 0.025% OPHTH DROPS 5 ML BTL BOTH EYES SCH ×2 (08:34→20:57)
[2018-08-06] MEDS: GLIMEPIRIDE 1 MG TAB PO SCH (08:35)
[2018-08-06] MEDS: ENOXAPARIN 40 MG/0.4 ML SYRINGE SQ SCH (08:35)
[2018-08-06] MEDS: INSULIN ASPART 100 UNIT/ML 1 ML 10 ML VIAL SQ SCH ×4 (08:35→20:25)
[2018-08-06] MEDS: PANTOPRAZOLE 40 MG TABLET PO SCH ×2 (08:35→18:11)
[2018-08-06] MEDS: LISINOPRIL 5 MG TAB PO SCH ×3 (08:35→20:24)
[2018-08-06] MEDS: SODIUM CHLORIDE 0.9% 1,000 ML IV SCH ×2 (08:36→21:03)
[2018-08-06] MEDS: SALT AND SODA MOUTHWASH 1,000 ML PO SCH ×4 (08:36→21:03)
[2018-08-06 11:14] LABS: Glucose,Whole Blood 75 mg/dL (75-99)
[2018-08-06] MEDS: ONDANSETRON 8 MG in SODIUM CHLORIDE 0.9% 50 ML IVPB PRN (14:14)
[2018-08-06 17:17] LABS: Glucose,Whole Blood 62 mg/dL (75-99)
[2018-08-06 17:45] LABS: Glucose,Whole Blood 107 mg/dL (75-99)
[2018-08-06] MEDS ORDERED: PROCHLORPERAZINE 10 MG TAB PO PRN (18:25)
--- NOTE | 2018-08-06 19:05 | P.PN ---
Subjective Progress Note Date: 08/06/18 Principal diagnosis: DLBCL Currently day 5 of chemotherapy. Having increased nausea, mainly when she overeats or gets hungry. Improving now. Episodes of bradycardia at night. Objective - Vital Signs Vital signs: Vital Signs Temp 97.0 F L 08/06/18 16:20 Pulse 50 L 08/06/18 16:35 Resp 16 08/06/18 16:35 BP 139/79 08/06/18 16:20 Pulse Ox 98 08/06/18 16:20 Intake & Output 08/05/18 08/06/18 08/06/18 18:59 06:59 18:59 Intake Total 1717.8 240 Balance 1717.8 240 Weight 126.5 kg Intake: Intake, IV Titration 1597.8 Amount DOXOrubicin HCL 22 mg In 119 Sodium Chloride 0.9% 250 ml @ 10.875 mls/hr IV Q24H [facility] Rx#:[id number] Etoposide 110 mg In 253.4 Sodium Chloride 0.9% 500 ml 500 ml @ 21.063 mls/hr IV Q24H [facility] Rx#: [id number] Sodium Chloride 0.9% 1, 1200 000 ml @ 100 mls/hr IV . Q10H [facility] Rx#:[id number] vinCRIStine SULFATE 0.9 25.4 mg In Sodium Chloride 0.9 % 50 ml @ 2.121 mls/hr IV Q24H [facility] Rx#:[id number] Oral 120 240 Other: Voiding Method Toilet Toilet Toilet # Voids 4 4 # Bowel Movements 4 - Exam General: In no acute distress. HEENT: Mucosa moist. Neck: Neck supple. Lungs: CTA-B. Heart: RRR. Abdomen: Soft. MSK: 4/4 strength in all 4 extremities. Neuro: Alert and oriented 3. No obvious gross neurologic deficits. Skin: No jaundice or rash. Psych: Appropriate affect. - Labs CBC & Chem 7: 08/06/18 06:38 08/06/18 06:38 Labs: Abnormal Lab Results - Last 24 Hours (Table) 08/05/18 08/06/18 08/06/18 Range/Units 20:39 06:38 06:38 WBC 3.5 L (3.8-10.6) k/uL RBC 3.39 L (3.80-5.40) m/uL Hgb 9.9 L (11.4-16.0) gm/dL Hct 32.3 L (34.0-46.0) % MCHC 30.5 L (31.0-37.0) g/dL Lymphocytes # 0.3 L (1.0-4.8) k/uL Glucose 160 H (74-99) mg/dL POC Glucose (mg/dL) 146 H (75-99) mg/dL Total Protein 4.9 L (6.3-8.2) g/dL Albumin 2.7 L (3.5-5.0) g/dL 08/06/18 08/06/18 Range/Units 07:05 17:15 WBC (3.8-10.6) k/uL RBC (3.80-5.40) m/uL Hgb (11.4-16.0) gm/dL Hct (34.0-46.0) % MCHC (31.0-37.0) g/dL Lymphocytes # (1.0-4.8) k/uL Glucose (74-99) mg/dL POC Glucose (mg/dL) 159 H 62 L (75-99) mg/dL Total Protein (6.3-8.2) g/dL Albumin (3.5-5.0) g/dL Assessment and Plan Assessment: DLBCL Chemotherapy Bradycardia Chemotherapy induced bicytopenia Chemotherapy induced nausea Plan: Ms. Ochoa is a very pleasant 68-year-old female who is here for newly found DLBCL , started on her first cycle of R-EPOCH, currently day 5 out of 5 of treatment. She is having some more nausea. Also course complicated by bradycardia, which is chronic. Cardiology on board and adjusted her medications. Continue to monitor her heart rate. It typically drops while she is asleep, asymptomatic. Will monitor nausea closely and consider decadron for nausea if needed. Otherwise, could consider compazine, although due to bradycardia will limit use of zofran and compazine. Currently on zofran IV bid. Also with diabetes, on insulin. Continue with her last dose of chemotherapy tonight and plan on discharge afterwards, tomorrow morning. Discussed with the patient and she is agreeable to the plan. All of her questions were answered.
--- NOTE | 2018-08-06 19:15 | PN ---
PROGRESS NOTE SUBJECTIVE: 68-year-old white female with bradycardia been treated with updrafts for asthma. On last day of IV chemotherapy, she will be sent home in the morning. Vital signs stable. Afebrile. CARDIOVASCULAR: S1, S2. Her rate is high 30s to low 40s. : Suprapubic tenderness. ASSESSMENT: 1. Bradycardia. 2. Beta lymphoma. 3. Asthma. 4. Anxiety. 5. Dyslipidemia. 6. Insulin-dependent diabetes mellitus. Continue current treatments. Follow up in the next 24-48 hours. Probable discharge. MMODL / IJN: [id number] /
[2018-08-06 19:59] LABS: Glucose,Whole Blood 98 mg/dL (75-99)
[2018-08-06] MEDS: ALPRAZolam 0.5 MG TAB PO SCH (20:24)
[2018-08-06] MEDS: MONTELUKAST 10 MG TAB PO SCH (20:57)
[2018-08-06] MEDS: ATORVASTATIN 40 MG TAB PO SCH (20:57)
[2018-08-06] MEDS: SULFACETAMIDE SOD 10% OPHTH DROPS 15 ML BTL RIGHT EYE SCH (20:58)
[2018-08-06] MEDS ORDERED: SODIUM CHLORIDE 0.9% IV ONE (21:00)
[2018-08-06] MEDS ORDERED: CYCLOPHOSPHAMIDE IV ONE (21:00)
[2018-08-07] MEDS: LEVOTHYROXINE 75 MCG TAB PO SCH (06:24)
[2018-08-07] MEDS: SODIUM CHLORIDE 0.9% 1,000 ML IV SCH ×2 (06:25→16:24)
[2018-08-07 06:43] LABS: Basophils % (A) 0 %; Eosinophils # (A) 0.2 k/uL (0-0.7); Eosinophils % (A) 4 %; HCT 31.4 % (34.0-46.0); HGB 9.6 gm/dL (11.4-16.0); Lymphocytes # (A) 1.3 k/uL (1.0-4.8); Lymphocytes % (A) 28 %; MCH 28.8 pg (25.0-35.0); MCHC 30.7 g/dL (31.0-37.0); MCV 93.9 fL (80.0-100.0); Mean Platelet Volume 6.8; Monocytes % (A) 0 %; Neutrophils # (A) 3.2 k/uL (1.3-7.7); Neutrophils % (A) 68 %; Platelet Count 246 k/uL (150-450); RBC 3.34 m/uL (3.80-5.40); WBC 4.7 k/uL (3.8-10.6)
[2018-08-07 06:52] LABS: Glucose,Whole Blood 104 mg/dL (75-99)
[2018-08-07 06:53] LABS: ALT 27 U/L (9-52); AST 16 U/L (14-36); Albumin 2.4 g/dL (3.5-5.0); Alkaline Phosphatase 34 U/L (38-126); Anion Gap 1 mmol/L; Blood Urea Nitrogen 18 mg/dL (7-17); Calcium 8.6 mg/dL (8.4-10.2); Carbon Dioxide 30 mmol/L (22-30); Chloride 107 mmol/L (98-107); Glucose 104 mg/dL (74-99); Potassium 3.8 mmol/L (3.5-5.1); Sodium 138 mmol/L (137-145); Total Bilirubin 0.7 mg/dL (0.2-1.3); Total Protein 4.5 g/dL (6.3-8.2)
[2018-08-07] MEDS: SALT AND SODA MOUTHWASH 1,000 ML PO SCH ×3 (07:32→17:36)
[2018-08-07] MEDS: GLIMEPIRIDE 1 MG TAB PO SCH (07:33)
[2018-08-07] MEDS: KETOTIFEN 0.025% OPHTH DROPS 5 ML BTL BOTH EYES SCH (07:33)
[2018-08-07] MEDS: ENOXAPARIN 40 MG/0.4 ML SYRINGE SQ SCH (07:33)
[2018-08-07] MEDS: LISINOPRIL 5 MG TAB PO SCH (07:33)
[2018-08-07] MEDS: INSULIN ASPART 100 UNIT/ML 1 ML 10 ML VIAL SQ SCH ×3 (07:34→17:37)
[2018-08-07] MEDS: PANTOPRAZOLE 40 MG TABLET PO SCH ×2 (07:34→17:37)
[2018-08-07] MEDS: ALBUTEROL NEBULIZED 2.5 MG/3 ML INHALATION SCH ×3 (07:38→16:10)
[2018-08-07 07:58] VITALS: TEMP 97.1
[2018-08-07 11:27] LABS: Glucose,Whole Blood 63 mg/dL (75-99)
[2018-08-07 11:36] LABS: Glucose,Whole Blood 66 mg/dL (75-99)
[2018-08-07 11:48] LABS: Glucose,Whole Blood 100 mg/dL (75-99)
[2018-08-07] MEDS: ONDANSETRON 8 MG in SODIUM CHLORIDE 0.9% 50 ML IVPB PRN (12:12)
[2018-08-07 12:52] VITALS: BP 145/49
[2018-08-07 16:30] VITALS: PULSE 56
[2018-08-07 16:57] LABS: Glucose,Whole Blood 80 mg/dL (75-99)
--- NOTE | 2018-08-07 17:07 | P.DS ---
Providers Date of admission: 08/01/18 07:37 Expected date of discharge: 08/07/18 Attending physician: Raheel Peralta Consults: 08/01/18 09:22 Consult Physician Routine Consulting Provider: Padilla Santiago Consult Reason/Comments: Medical management Do you want consulting provider notified?: Yes 08/03/18 01:42 Consult Physician Routine Consulting Provider: Seven Mccloud Consult Reason/Comments: bradycardia Do you want consulting provider notified?: Yes Primary care physician: Padilla [facility] Course: Ms. Ochoa is a very pleasant 68 yo female with newly found DLBCL, here for first cycle of chemotherapy with R-EPOCH. Course complicated by bradycardia, asymptomatic and while asleep. Cardiology consulted and her medications were adjusted. She was discharged in stable condition after she completed her chemotherapy. She was instructed to go to the [facility] on 08/08/18 at 9 AM for her Neulasta injection and to follow up with us in clinic on 08/11/18 at 10:15 AM for labs. She was provided prescriptions of all her medications with a short supply of medication of Xanax and [place] which can be refilled in clinic. She is agreeable to the plan and all of her questions were answered. Patient Condition at Discharge: Stable Plan - Discharge Summary Discharge Rx Participant: No New Discharge Prescriptions: Discontinued Carvedilol [Coreg] 3.125 mg PO BID No Action Simvastatin [Zocor] 80 mg PO HS Lisinopril [Zestril] 2.5 mg PO HS Zafirlukast [Accolate] 20 mg PO BID Ergocalciferol [Vitamin D2 (DRISDOL)] 50,000 unit PO Q7D Levothyroxine Sodium [Synthroid] 150 mcg PO QAM Glimepiride [Amaryl] 1 mg PO AC-BRKFST rOPINIRole HCL [Requip] 0.5 mg PO HS ALPRAZolam [Xanax] 0.5 mg PO HS Hydrocodone/Acetaminophen [Hydrocodon-Acetaminophn 10-325] 1 tab PO Q6H PRN PRN Reason: Pain Meclizine [Antivert] 25 mg PO TID PRN PRN Reason: Vertigo Discharge Medication List Simvastatin [Zocor] 80 mg PO HS 03/21/14 [History] Zafirlukast [Accolate] 20 mg PO BID 03/21/14 [History] Ergocalciferol [Vitamin D2 (DRISDOL)] 50,000 unit PO Q7D 10/09/14 [History] Levothyroxine Sodium [Synthroid] 150 mcg PO QAM 10/09/14 [History] Glimepiride [Amaryl] 1 mg PO AC-BRKFST 10/08/15 [History] rOPINIRole HCL [Requip] 0.5 mg PO HS 08/04/17 [History] ALPRAZolam [Xanax] 0.5 mg PO HS 03/10/18 [History] Hydrocodone/Acetaminophen [Hydrocodon-Acetaminophn 10-325] 1 tab PO Q6H PRN [History] Meclizine [Antivert] 25 mg PO TID PRN 08/01/18 [History] ALPRAZolam [Xanax] 0.5 mg PO HS #3 tab 08/07/18 [Rx] Acyclovir 400 mg PO AC-BID #60 tablet 08/07/18 [Rx] HYDROcodone/APAP 10-325MG [[place] 10-325] 1 each PO Q6H PRN #12 tab 08/07/18 [Rx] Lisinopril [Zestril] 5 mg PO BID #60 tab 08/07/18 [Rx] Meclizine [Antivert] 25 mg PO TID PRN #14 tab 08/07/18 [Rx] Pantoprazole [Protonix] 40 mg PO AC-BID #60 tablet.dr 08/07/18 [Rx] Prochlorperazine [Compazine] 10 mg PO Q6H PRN #45 tab 08/07/18 [Rx] rOPINIRole HCL [Requip] 0.5 mg PO HS 7 Days #7 tab 08/07/18 [Rx] Follow up Appointment(s)/Referral(s): Travis Caro MD [STAFF PHYSICIAN] - 2 Weeks Cady Campos NPC [Nurse Practitioner] - 08/11/18 10:15 am [facility] [NON-STAFF] - As Needed Patient Instructions/Handouts: Bradycardia (DC), Neutropenia (DC), Tumor Lysis Syndrome (DC), Chemo Induced Nausea and Vomiting (DC) Activity/Diet/Wound Care/Special Instructions: Regular Diet Discharge Disposition: HOME SELF-CARE
[2018-08-07] MEDS: HYDROcodone/APAP 10-325MG 1 EACH TAB PO PRN (17:36)
--- NOTE | 2018-08-07 23:19 | PN ---
PROGRESS NOTE Cardiovascular S1-S2. Lungs transmitted upper sounds. Hematology negative Homans. Psych fair mood and affect. PLAN: Continue with updraft treatments for asthma. Pulse is improved. Status post chemo is all done. Adjust her blood pressure medicines for hypertension and follow up in the next 24-48 hours. NICOLASA / ELOISAN: [id number] /
== END 2018-08-07 19:41 | disposition home or self-care (01) | DRG 847 ==
LOC: 3NMEDONC 07:37
PROVIDERS: ADMIT Internal Medicine Hematology & Oncology; ATTEND Internal Medicine Hematology & Oncology
DX: Z51.11 Encounter for antineoplastic chemotherapy (principal); C83.39 Diffuse large B-cell lymphoma, extranodal and solid organ sites; D70.1 Agranulocytosis secondary to cancer chemotherapy; I27.20 Pulmonary hypertension, unspecified; I08.1 Rheumatic disorders of both mitral and tricuspid valves; T45.1X5A Adverse effect of antineoplastic and immunosuppressive drugs, initial encounter; E11.9 Type 2 diabetes mellitus without complications; E66.9 Obesity, unspecified; E78.5 Hyperlipidemia, unspecified; F41.9 Anxiety disorder, unspecified; G25.81 Restless legs syndrome; G47.33 Obstructive sleep apnea (adult) (pediatric); H91.92 Unspecified hearing loss, left ear; I10 Essential (primary) hypertension; I25.10 Atherosclerotic heart disease of native coronary artery without angina pectoris; I49.3 Ventricular premature depolarization; J45.909 Unspecified asthma, uncomplicated; I49.8 Other specified cardiac arrhythmias; R19.7 Diarrhea, unspecified; R10.9 Unspecified abdominal pain; M19.90 Unspecified osteoarthritis, unspecified site; L40.9 Psoriasis, unspecified; I83.90 Asymptomatic varicose veins of unspecified lower extremity; E03.9 Hypothyroidism, unspecified; R11.0 Nausea; Z68.42 Body mass index [BMI] 45.0-49.9, adult; Z88.6 Allergy status to analgesic agent; Z88.1 Allergy status to other antibiotic agents; Z88.8 Allergy status to other drugs, medicaments and biological substances; Z98.84 Bariatric surgery status; Z95.1 Presence of aortocoronary bypass graft; Z91.81 History of falling; Z85.038 Personal history of other malignant neoplasm of large intestine; Z79.899 Other long term (current) drug therapy; Z79.890 Hormone replacement therapy; Z90.49 Acquired absence of other specified parts of digestive tract; Z98.51 Tubal ligation status; Z96.652 Presence of left artificial knee joint; Z80.1 Family history of malignant neoplasm of trachea, bronchus and lung; Y92.239 Unspecified place in hospital as the place of occurrence of the external cause
CPT/HCPCS: 80053; 83735; 84439; 84443; 84550; 85025; 93005; 93306; 94640; 94760

== ENCOUNTER → 2018-08-08 | Outpatient (CLI) | payer MEDICARE, OTHER ==
[~2018-08-08] MED LIST changes: -HEPARIN SODIUM,PORCINE 5,000 UNIT/ML 1 ML VIAL SQ ONE; -LACTATED RINGERS 1,000 ML IV SCH; -MORPHINE SULFATE 2 MG/ML SYRINGE IV PRN; +PEGFILGRASTIM 6 MG/0.6 ML SYRINGE SQ ONE; -Pre Op ABX Message 1 EACH MISC MISCELLANE ONE
[2018-08-08 09:16] VITALS: BP 121/78; PULSE 53; RESP 16; TEMP 97.9
== END ==
LOC: PROCWHC3 09:13
PROVIDERS: ATTEND Internal Medicine Hematology & Oncology
DX: C83.39 Diffuse large B-cell lymphoma, extranodal and solid organ sites (principal); D70.1 Agranulocytosis secondary to cancer chemotherapy
CPT/HCPCS: 96372; J2505

== ENCOUNTER 2018-08-22 08:04 | Inpatient (IN) | payer MEDICARE, OTHER ==
[2018-08-22] MEDS ORDERED: ONDANSETRON 8 MG in SODIUM CHLORIDE 0.9% 50 ML IVPB PRN (09:00)
[2018-08-22] MEDS: predniSONE 50 MG TAB PO SCH ×2 (10:19→20:15)
[2018-08-22] MEDS: SODIUM CHLORIDE 0.9% 1,000 ML IV SCH ×2 (10:19→20:15)
[2018-08-22] MEDS: predniSONE 10 MG TAB PO SCH ×2 (10:19→20:15)
[2018-08-22 10:33] LABS: Anisocytosis Slight; Basophils % (A) 0 %; Eosinophils # (A) 0.1 k/uL (0-0.7); Eosinophils % (A) 1 %; HCT 29.8 % (34.0-46.0); HGB 9.2 gm/dL (11.4-16.0); Hypochromasia Slight; Lymphocytes # (A) 1.5 k/uL (1.0-4.8); Lymphocytes % (A) 20 %; MCH 29.5 pg (25.0-35.0); MCHC 30.8 g/dL (31.0-37.0); MCV 95.6 fL (80.0-100.0); Macrocytosis Slight; Mean Platelet Volume 7.1; Monocytes # (A) 0.6 k/uL (0-1.0); Monocytes % (A) 8 %; Neutrophils # (A) 5.1 k/uL (1.3-7.7); Neutrophils % (A) 68 %; Platelet Count 412 k/uL (150-450); RBC 3.12 m/uL (3.80-5.40); RDW 17.4 % (11.5-15.5); WBC 7.5 k/uL (3.8-10.6)
[2018-08-22 10:42] LABS: Albumin 3.3 g/dL (3.5-5.0); Calcium 9.2 mg/dL (8.4-10.2); Potassium 4.8 mmol/L (3.5-5.1); Total Bilirubin 0.3 mg/dL (0.2-1.3); Total Protein 5.6 g/dL (6.3-8.2)
[2018-08-22 11:28] LABS: Glucose,Whole Blood 151 mg/dL (75-99)
--- NOTE | 2018-08-22 11:32 | P.HPIM ---
History of Present Illness H&P Date: 08/22/18 Chief Complaint: Admission for continuous IV infusion chemo, diffuse large B- cell lymphoma Patient is admitted for her second cycle of REPOCH treatment for diffuse large B-cell lymphoma of the gastrointestinal tract. Patient comes to the hospital today with complaint of persistent hair loss. Patient otherwise denies fevers, significant fatigue or malaise, oral irritation, difficulty swallowing, appetite is fair to good, no nausea, vomiting, indigestion, heartburn, abdominal pain, bloating, shortness of breath or cough, acute changes in bowel or bladder habits, bleeding, swelling, her back pain is well-controlled on her current analgesic regimen. She is fully ambulatory. Malignancy history: Mrs. Ochoa was initially evaluated summer for c/o persistent RLQ abdominal pain associated with intermittent diarrhea. Colonoscopy in 03/02 was negative. Due to persistence of the symptoms pt had CT that showed inflammation of the right colon and cecum. She had 06/16/18, pathology positive for diffuse large B-cell lymphoma infiltrating the colonic and terminal ileum with involvement of at least one mesocolic lymph node. Staging PET showed uptake only in the right lower quadrant of the abdomen. There was no evidence of double/triple hit mutations. Treatment recommendation was for 6 cycles of continuous IV infusion REPOCH. Patient started treatment 08/01/2018. Review of Systems 14 point review of systems is negative except as stated in HPI Past Medical History Past Medical History: Asthma, Coronary Artery Disease (CAD), Cancer, Diabetes Mellitus, Hearing Disorder / Deafness, Hyperlipidemia, Hypertension, Musculoskeletal Disorder, Osteoarthritis (OA), Skin Disorder, Sleep Apnea/CPAP/ BIPAP, Thyroid Disorder Additional Past Medical History / Comment(s): DLBCL-receiving chemotherapy and had bradycardia, R colectomy d/t mass, ischemic heart disease, NIDDM type II, deaf/chronic otitis media L ear, chronic low back/neck and R shoulder pain, RLS , veritgo at times, L hand numbness tingling which she attributes to L sided carpal tunnel syndrome, varicosities, possible IBS/colitis and chron's per pt in the past, benign colon polyps, RLS, hypothyroid, allergic sinusitis. History of Any Multi-Drug Resistant Organisms: None Reported Past Surgical History: Bariatric Surgery, Bowel Resection, Cholecystectomy, Coronary Bypass/CABG, Heart Catheterization, Hernia Repair, Joint Replacement, Orthopedic Surgery, Tubal Ligation Additional Past Surgical History / Comment(s): KNEE ARTHROSCOPY,CABG x1 vessel ( 1992), LAP BAND AND REMOVAL. GASTRIC BYPASS 2012, UMBILICAL HERNIA REPAIR, KRISTOPHER. SHOULDER SURG, rt shoulder rotator cuff, KRISTOPHER CARPAL TUNNEL, L wrist surgery d/t injury,. KRISTOPHER EAR SURG WITH TUBES, TOTAL LEFT KNEE, RIGHT EAR SURG, RIGHT COLECTOMY (06/16/18) Past Anesthesia/Blood Transfusion Reactions: No Reported Reaction, Motion Sickness Additional Past Anesthesia/Blood Transfusion Reaction / Comment(s): VERTIGO Smoking Status: Former smoker - Past Family History Mother Additional Family Medical History / Comment(s): Pt states her mother never went to the doctor so she does not know of any medical problems. Mother lived to be 87yrs old. Father Additional Family Medical History / Comment(s): Father at the age of 67yrs , pt does not know cause of . He had alcohol abuse Sister(s) Family Medical History: Cancer Additional Family Medical History / Comment(s): LUNG CA Medications and Allergies Home Medications Medication Instructions Recorded Confirmed Type Simvastatin [Zocor] 80 mg PO HS 03/21/14 08/22/18 History Zafirlukast [Accolate] 20 mg PO BID 03/21/14 08/22/18 History Ergocalciferol [Vitamin D2 50,000 unit PO MO 10/09/14 08/22/18 History (ISDELVIS)] Levothyroxine Sodium [Synthroid] 150 mcg PO QAM 10/09/14 08/22/18 History Glimepiride [Amaryl] 1 mg PO AC-BRKFST 10/08/15 08/22/18 History rOPINIRole HCL [Requip] 0.5 mg PO HS 08/04/17 08/22/18 History Acyclovir 400 mg PO AC-BID #60 tablet 08/07/18 08/22/18 Rx Meclizine [Antivert] 25 mg PO TID PRN #14 tab 08/07/18 08/22/18 Rx Pantoprazole [Protonix] 40 mg PO AC-BID #60 tablet. 08/07/18 08/22/18 Rx Cyanocobalamin (Vitamin B-12) 1,000 mcg PO DAILY 08/22/18 08/22/18 History [Vitamin B-12] HYDROcodone/APAP 10-325MG [[place] 1 tab PO Q6H PRN 08/22/18 08/22/18 History 10-325] Lisinopril [Zestril] 5 mg PO DAILY 08/22/18 08/22/18 History Allergies Allergy/AdvReac Type Severity Reaction Status Date / Time allopurinol Allergy Itching Verified 08/22/18 09:53 cephalexin monohydrate Allergy Itching Verified 08/22/18 09:53 [From Keflex] clindamycin Allergy Itching Verified 08/22/18 09:53 NSAIDS (Non-Steroidal AdvReac Unknown STATES NO Verified 08/22/18 09:53 Anti-Inflamma NSAIDS DUE TO GASTRIC BYPASS ciprofloxacin [From Cipro] AdvReac severe Verified 08/22/18 09:53 heartburn doxycycline AdvReac severe Verified 08/22/18 09:53 heartburn Physical Exam Vitals: Vital Signs Temp Pulse Resp BP Pulse Ox 08/22/18 08:25 97.4 F L 73 16 122/84 95 Intake and Output 08/21/18 08/22/18 08/22/18 22:59 06:59 14:59 Other: Weight 114.759 kg - Constitutional General appearance: cooperative, no acute distress, obese - EENT Eyes: anicteric sclerae, EOMI ENT: hearing grossly normal, normal oropharynx - Neck Neck: no lymphadenopathy - Respiratory Respiratory: bilateral: CTA - Cardiovascular Rhythm: regular Heart sounds: normal: S1, S2 Abnormal Heart Sounds: no systolic murmur, no diastolic murmur, no rub, no S3 Gallop, no S4 Gallop, no click, no other leg Peripheral Edema: bilateral: None - Gastrointestinal General gastrointestinal: no absent bowel sounds, no decreased bowel sounds, no distended, no hepatomegaly, no hyperactive bowel sounds, normal bowel sounds, no organomegaly, no rigid, no scaphoid, soft, no splenomegaly, no tenderness, no umbilical hernia, no ventral hernia - Integumentary Integumentary: normal - Neurologic Neurologic: CNII-XII intact - Musculoskeletal Musculoskeletal: strength equal bilaterally - Psychiatric Psychiatric: A&O x's 3, appropriate affect, intact judgment & insight Results CBC & Chem 7: 08/22/18 10:00 08/22/18 10:00 Labs: Abnormal Lab Results - Last 24 Hours (Table) 08/22/18 08/22/18 Range/Units 10:00 10:00 RBC 3.12 L (3.80-5.40) m/uL Hgb 9.2 L (11.4-16.0) gm/dL Hct 29.8 L (34.0-46.0) % MCHC 30.8 L (31.0-37.0) g/dL RDW 17.4 H (11.5-15.5) % BUN 18 H (7-17) mg/dL Glucose 159 H (74-99) mg/dL Total Protein 5.6 L (6.3-8.2) g/dL Albumin 3.3 L (3.5-5.0) g/dL Thrombosis Risk Factor Assmnt - DVT/VTE Prophylaxis DVT/VTE Prophylaxis: Pharmacologic Prophylaxis ordered - Choose All That Apply Any of the Below Risk Factors Present?: Yes Each Factor Represents 1 point: Obesity (BMI >25), Varicose veins Other Risk Factors: Yes Each Risk Factor Represents 2 Points: Age 61-74 years, Malignancy Other congenital or acquired thrombophilia - If yes, enter type in comment: No Thrombosis Risk Factor Assessment Total Risk Factor Score: 6 Thrombosis Risk Factor Assessment Level: High Risk Assessment and Plan (1) Diffuse large B-cell lymphoma of extranodal site Narrative/Plan: Patient admitted for continuous IV infusion chemotherapy REPOCH regimen. Home medications reconciled. Dr. Santiago consulted for medical management Supportive medications have been ordered. Daily labs and daily follow-up. Current Visit: Yes Status: Acute Priority: High Code(s): C83.39 - DIFFUSE LARGE B-CELL LYMPHOMA, EXTRNOD AND SOLID ORGAN SITES SNOMED Code(s): 512268523 (2) Bradyarrhythmia Narrative/Plan: Patient had trouble with bradycardia during first chemotherapy infusion. Telemetry has been ordered. Patient states that she recently wore a halter monitor for her physician Dr. Caro, with some adjustments to her cardiac medications. Will consult Dr. Caro to ensure that patient's recent medication changes are appropriate. Current Visit: Yes Status: Acute Priority: High Code(s): I49.8 - OTHER SPECIFIED CARDIAC ARRHYTHMIAS SNOMED Code(s): 904325759 (3) CAD (coronary artery disease) Current Visit: No Status: Acute Code(s): I25.10 - ATHSCL HEART DISEASE OF [place] CORONARY ARTERY W/O ANG PCTRS SNOMED Code(s): 54360451 (4) Chronic pain syndrome Narrative/Plan: Patient's home pain medications have been reordered. Patient states adequate pain control with the same. Current Visit: No Status: Chronic Priority: Low Code(s): G89.4 - CHRONIC PAIN SYNDROME SNOMED Code(s): 216643671 Plan: GI and DVT prophylaxis
[2018-08-22] MEDS: ONDANSETRON 16 MG in SODIUM CHLORIDE 0.9% 50 ML IVPB SCH (11:54)
[2018-08-22] MEDS: FAMOTIDINE 20 MG/2 ML VIAL IV SCH (11:55)
[2018-08-22] MEDS ORDERED: methylPREDNISolone SOD SUCCI 125 MG/2 ML VIAL IV ONE (13:00)
[2018-08-22] MEDS ORDERED: diphenhydrAMINE 50 MG/ML 1 ML VIAL IVP ONE (13:00)
[2018-08-22] MEDS ORDERED: ACETAMINOPHEN TAB 325 MG TAB PO ONE (13:00)
[2018-08-22] MEDS: HYDROcodone/APAP 10-325MG 1 EACH TAB PO PRN ×2 (13:10→20:22)
[2018-08-22] MEDS: SALT AND SODA MOUTHWASH 1,000 ML PO SCH ×3 (13:15→21:48)
[2018-08-22] MEDS ORDERED: riTUXimab 800 MG in SODIUM CHLORIDE 0.9% 500 ML 500 ML IV ONE (14:00)
[2018-08-22 17:31] LABS: Glucose,Whole Blood 209 mg/dL (75-99)
[2018-08-22] MEDS: SODIUM CHLORIDE 0.9% IV SCH ×3 (17:35→17:36)
[2018-08-22] MEDS: DOXORUBICIN HCL IV SCH (17:35)
[2018-08-22] MEDS: ETOPOSIDE IV SCH (17:36)
[2018-08-22] MEDS: VINCRISTINE SULFATE IV SCH (17:36)
[2018-08-22] MEDS: ACYCLOVIR 200 MG CAP PO SCH (17:42)
[2018-08-22] MEDS: PANTOPRAZOLE 40 MG TABLET PO SCH (17:43)
[2018-08-22] MEDS: INSULIN ASPART 100 UNIT/ML 1 ML 10 ML VIAL SQ SCH ×2 (18:16→20:19)
[2018-08-22] MEDS: ATORVASTATIN 40 MG TAB PO SCH (20:15)
[2018-08-22 20:48] LABS: Glucose,Whole Blood 240 mg/dL (75-99)
[2018-08-23] MEDS: HYDROcodone/APAP 10-325MG 1 EACH TAB PO PRN ×4 (02:19→20:12)
--- NOTE | 2018-08-23 04:29 | CONS ---
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 She had IV infusion chemo 2 weeks ago, which she has severe bradycardia and echo was ordered. She is losing hair. Wants all her hair chopped off tonight. She had difficulty with asthma last admission. She will be started on her home medicines including updraft treatments. She is on her 2nd cycle of IV infusion of the R-EPOCH trial. PAST MEDICAL HISTORY: Asthma, coronary artery disease, cancer, diabetes mellitus, deafness, dyslipidemia, hypertension, osteoarthritis, sleep apnea. She is on Accu-Chek protocol. FAMILY HISTORY: Reviewed. REVIEW OF SYMPTOMS: 14-point review of systems negative. ALLERGIES: TO ALLOPURINOL, KEFLEX, CLINDAMYCIN, NSAIDs. PHYSICAL EXAM: Vital signs are reviewed. Pulse is in the 60s. CARDIOVASCULAR: S1, S2. LUNGS: Clear. GI soft. INTEGUMENT: She has hair loss. no suprapubic tenderness. HEMATOLOGY: Negative Homans. Endocrine BMI over 40. ASSESSMENT: 1. Basal cell lymphoma of the appendiceal area. 2. Acute on chronic anemia. We will monitor for signs of bradycardia and asthma. Continue home medications. Continue current treatment. MMODL / IJN: [id number] /
[2018-08-23] MEDS: LEVOTHYROXINE 75 MCG TAB PO SCH (05:51)
[2018-08-23] MEDS: SODIUM CHLORIDE 0.9% 1,000 ML IV SCH ×3 (05:51→19:31)
[2018-08-23] MEDS: MECLIZINE 25 MG TAB PO PRN ×2 (05:51→15:52)
[2018-08-23 07:24] LABS: Glucose,Whole Blood 204 mg/dL (75-99)
[2018-08-23] MEDS: PANTOPRAZOLE 40 MG TABLET PO SCH ×2 (07:55→16:35)
[2018-08-23] MEDS: INSULIN ASPART 100 UNIT/ML 1 ML 10 ML VIAL SQ SCH ×4 (07:56→21:00)
[2018-08-23] MEDS: LISINOPRIL 5 MG TAB PO SCH (07:56)
[2018-08-23] MEDS: CYANOCOBALAMIN 500 MCG TAB PO SCH (07:56)
[2018-08-23] MEDS: predniSONE 50 MG TAB PO SCH ×2 (07:56→20:12)
[2018-08-23] MEDS: ACYCLOVIR 200 MG CAP PO SCH ×2 (07:56→16:35)
[2018-08-23] MEDS: predniSONE 10 MG TAB PO SCH ×2 (07:56→20:12)
[2018-08-23] MEDS: GLIMEPIRIDE 1 MG TAB PO SCH (08:01)
[2018-08-23] MEDS: SALT AND SODA MOUTHWASH 1,000 ML PO SCH ×4 (08:02→22:30)
[2018-08-23 08:13] LABS: Anisocytosis Slight; Basophils % (A) 0 %; Eosinophils # (A) 0.1 k/uL (0-0.7); Eosinophils % (A) 0 %; HCT 28.7 % (34.0-46.0); HGB 8.9 gm/dL (11.4-16.0); Hypochromasia Slight; Lymphocytes # (A) 0.6 k/uL (1.0-4.8); Lymphocytes % (A) 5 %; MCH 29.9 pg (25.0-35.0); MCHC 31.1 g/dL (31.0-37.0); Macrocytosis Slight; Mean Platelet Volume 7.5; Monocytes # (A) 0.8 k/uL (0-1.0); Monocytes % (A) 6 %; Neutrophils # (A) 11.7 k/uL (1.3-7.7); Neutrophils % (A) 88 %; Platelet Count 405 k/uL (150-450); RBC 2.99 m/uL (3.80-5.40); RDW 16.9 % (11.5-15.5); WBC 13.2 k/uL (3.8-10.6)
[2018-08-23 08:22] LABS: ALT 21 U/L (9-52); AST 16 U/L (14-36); Albumin 3.1 g/dL (3.5-5.0); Alkaline Phosphatase 67 U/L (38-126); Anion Gap 4 mmol/L; Blood Urea Nitrogen 16 mg/dL (7-17); Calcium 9.9 mg/dL (8.4-10.2); Carbon Dioxide 26 mmol/L (22-30); Chloride 110 mmol/L (98-107); Glucose 169 mg/dL (74-99); Potassium 4.8 mmol/L (3.5-5.1); Sodium 140 mmol/L (137-145); Total Bilirubin 0.4 mg/dL (0.2-1.3); Total Protein 5.3 g/dL (6.3-8.2)
[2018-08-23 11:36] VITALS: BMI 43.4
[2018-08-23 11:56] LABS: Glucose,Whole Blood 141 mg/dL (75-99)
--- NOTE | 2018-08-23 12:39 | P.CRDCN ---
History of Present Illness History of present illness: This is a pleasant 68-year-old female past medical history significant for coronary artery bypass grafting, diabetes mellitus, hypertension , dyslipidemia, B-cell lymphoma, hypothyroidism and asthma. She follows with Dr. Caro in the office. We have been asked to see in consultation secondary to bradycardia on last round of chemo. She is currently here for her second round of chemo therapy. On last visit her beta blockers were stopped on that visit and her chemotherapy was completed without incident. She saw Dr. Caro in the office thereafter and underwent 24-hour Holter monitoring. The report has been reviewed from the office and reveals an average heart rate of 78 with no episodes of bradycardia. She is currently maintained on lisinopril 5 mg daily and atorvastatin 40 mg daily. On last admission her lisinopril was increased to BID, however she has been checking her pressures at home and they have been less than 135 systolic in the afternoon so she has not been taking the afternoon dose. Laboratory data reviewed, WBC 13.2, hemoglobin 8.9, platelets 405, sodium 140, potassium 4.8 and creatinine 0.8. She denies symptoms of chest pain, shortness of breath, dizziness, palpitations or diaphoresis. Echocardiogram obtained 08/01/2018 reveals preserved left ventricular systolic function with ejection fraction 55-60%. At the time of my exam: CONSTITUTIONAL: Denies fever. Denies chills. EYES: Denies blurred vision. Denies vision changes. Denies eye pain. EARS, NOSE, MOUTH & THROAT: Denies headache. Denies sore throat. Denies ear pain. CARDIOVASCULAR: Denies chest pain. Denies shortness of breath. Denies orthopnea. Denies PND. Denies palpitations. RESPIRATORY: Denies cough. GASTROINTESTINAL: Denies abdominal pain. Denies diarrhea. Denies constipation. Denies nausea. Denies vomiting. MUSCULOSKELETAL: Denies myalgias. INTEGUMENTARY: Denies pruitis. Denies rash. NEUROLOGIC: Denies numbness. Denies tingling. Denies weakness. PSYCHIATRIC: Denies anxiety. Denies depression. ENDOCRINE: Denies fatigue. Denies weight change. Denies polydipsia. Denies polyurina. GENITOURINARY: Denies burning, hematuria or urgency with micturation. HEMATOLOGIC: Denies history of anemia. Denies bleeding. GENERAL: This is a 68-year-old female in no apparent distress at the time of my examination. Obese. HEENT: Head is atraumatic, normocephalic. Pupils are equal, round. Sclerae anicteric. Conjunctivae are clear. Mucous membranes of the mouth are moist. Neck is supple. There is no jugular venous distention. No carotid bruit is heard. LUNGS: Clear to auscultation no wheezes, rales or rhonchi. No chest wall tenderness is noted on palpation or with deep breathing. HEART: Regular rate and rhythm without murmurs, rubs or gallops. S1 and S2 heard. ABDOMEN: Soft, nontender. Bowel sounds are heard. No organomegaly noted. EXTREMITIES: No evidence of peripheral edema and no calf tenderness noted. VASCULAR: Radial and dorsalis pedis pulses palpated, no evidence of clubbing. NEUROLOGIC: Patient is awake, alert and oriented x3. ASSESSMENT B-cell lymphoma undergoing chemotherapy Hypothyroidism History of coronary artery disease status post bypass grafting Hypertension Dyslipidemia Suspect sleep apnea Sinus bradycardia while sleeping during previous chemotherapy PLAN Stable from a cardiac perspective. Continue chemotherapy as ordered per oncology team. Results of 24-hr Holter monitor discussed with the patient. Follow up with Dr. Caro as previously established in January. We will continue to follow as needed, thank you kindly for this consultation. Nurse Practitioner note has been reviewed, I agree with a documented findings and plan of care. Patient was seen and examined. Past Medical History Past Medical History: Asthma, Coronary Artery Disease (CAD), Cancer, Diabetes Mellitus, Hearing Disorder / Deafness, Hyperlipidemia, Hypertension, Musculoskeletal Disorder, Osteoarthritis (OA), Skin Disorder, Sleep Apnea/CPAP/ BIPAP, Thyroid Disorder Additional Past Medical History / Comment(s): DLBCL-receiving chemotherapy and had bradycardia, R colectomy d/t mass, ischemic heart disease, NIDDM type II, deaf/chronic otitis media L ear, chronic low back/neck and R shoulder pain, RLS , veritgo at times, L hand numbness tingling which she attributes to L sided carpal tunnel syndrome, varicosities, possible IBS/colitis and chron's per pt in the past, benign colon polyps, RLS, hypothyroid, allergic sinusitis. History of Any Multi-Drug Resistant Organisms: None Reported Past Surgical History: Bariatric Surgery, Bowel Resection, Cholecystectomy, Coronary Bypass/CABG, Heart Catheterization, Hernia Repair, Joint Replacement, Orthopedic Surgery, Tubal Ligation Additional Past Surgical History / Comment(s): KNEE ARTHROSCOPY,CABG x1 vessel ( 1992), LAP BAND AND REMOVAL. GASTRIC BYPASS 2012, UMBILICAL HERNIA REPAIR, KRISTOPHER. SHOULDER SURG, rt shoulder rotator cuff, KRISTOPHER CARPAL TUNNEL, L wrist surgery d/t injury,. KRISTOPHER EAR SURG WITH TUBES, TOTAL LEFT KNEE, RIGHT EAR SURG, RIGHT COLECTOMY (06/16/18) Past Anesthesia/Blood Transfusion Reactions: No Reported Reaction, Motion Sickness Additional Past Anesthesia/Blood Transfusion Reaction / Comment(s): VERTIGO Smoking Status: Former smoker - Past Family History Mother Additional Family Medical History / Comment(s): Pt states her mother never went to the doctor so she does not know of any medical problems. Mother lived to be 87yrs old. Father Additional Family Medical History / Comment(s): Father at the age of 67yrs , pt does not know cause of . He had alcohol abuse Sister(s) Family Medical History: Cancer Additional Family Medical History / Comment(s): LUNG CA Medications and Allergies Home Medications Medication Instructions Recorded Confirmed Type Simvastatin [Zocor] 80 mg PO HS 03/21/14 08/22/18 History Zafirlukast [Accolate] 20 mg PO BID 03/21/14 08/22/18 History Ergocalciferol [Vitamin D2 50,000 unit PO MO 10/09/14 08/22/18 History (ISDELVIS)] Levothyroxine Sodium [Synthroid] 150 mcg PO QAM 10/09/14 08/22/18 History Glimepiride [Amaryl] 1 mg PO AC-BRKFST 10/08/15 08/22/18 History rOPINIRole HCL [Requip] 0.5 mg PO HS 08/04/17 08/22/18 History Acyclovir 400 mg PO AC-BID #60 tablet 08/07/18 08/22/18 Rx Meclizine [Antivert] 25 mg PO TID PRN #14 tab 08/07/18 08/22/18 Rx Pantoprazole [Protonix] 40 mg PO AC-BID #60 tablet. 08/07/18 08/22/18 Rx Cyanocobalamin (Vitamin B-12) 1,000 mcg PO DAILY 08/22/18 08/22/18 History [Vitamin B-12] HYDROcodone/APAP 10-325MG [[place] 1 tab PO Q6H PRN 08/22/18 08/22/18 History 10-325] Lisinopril [Zestril] 5 mg PO DAILY 08/22/18 08/22/18 History Allergies Allergy/AdvReac Type Severity Reaction Status Date / Time allopurinol Allergy Itching Verified 08/22/18 09:53 cephalexin monohydrate Allergy Itching Verified 08/22/18 09:53 [From Keflex] clindamycin Allergy Itching Verified 08/22/18 09:53 NSAIDS (Non-Steroidal AdvReac Unknown STATES NO Verified 08/22/18 09:53 Anti-Inflamma NSAIDS DUE TO GASTRIC BYPASS ciprofloxacin [From Cipro] AdvReac severe Verified 08/22/18 09:53 heartburn doxycycline AdvReac severe Verified 08/22/18 09:53 heartburn Physical Exam Vitals: Vital Signs Temp Pulse Resp BP Pulse Ox 08/23/18 08:00 98.1 F 71 18 153/82 98 08/23/18 04:00 98 F 56 L 17 138/72 96 08/23/18 00:00 97.7 F 69 16 121/70 95 08/22/18 22:18 16 08/22/18 20:00 98 F 97 16 131/71 95 08/22/18 16:00 97.8 F 76 16 115/58 94 L Intake and Output 08/22/18 08/23/18 08/23/18 22:59 06:59 14:59 Intake Total 1178.8 480 240 Balance 1178.8 480 240 Intake: Intake, IV Titration 458.8 Amount riTUXimab 800 mg In 458.8 Sodium Chloride 0.9% 500 ml 500 ml @ Titrate IV . Q0M ONE Rx#:[id number] Oral 720 480 240 Other: # Voids 1 Weight 114.759 kg 114.759 kg Results 08/23/18 07:26 08/23/18 07:26 Cardiac Enzymes 08/23/18 Range/Units 07:26 AST 16 (14-36) U/L CBC 08/23/18 Range/Units 07:26 WBC 13.2 H (3.8-10.6) k/uL RBC 2.99 L (3.80-5.40) m/uL Hgb 8.9 L (11.4-16.0) gm/dL Hct 28.7 L (34.0-46.0) % Plt Count 405 (150-450) k/uL Comprehensive Metabolic Panel 08/23/18 Range/Units 07:26 Sodium 140 (137-145) mmol/L Potassium 4.8 (3.5-5.1) mmol/L Chloride 110 H (98-107) mmol/L Carbon Dioxide 26 (22-30) mmol/L BUN 16 (7-17) mg/dL Creatinine 0.63 (0.52-1.04) mg/dL Glucose 169 H (74-99) mg/dL Calcium 9.9 (8.4-10.2) mg/dL AST 16 (14-36) U/L ALT 21 (9-52) U/L Alkaline Phosphatase 67 (38-126) U/L Total Protein 5.3 L (6.3-8.2) g/dL Albumin 3.1 L (3.5-5.0) g/dL Current Medications Generic Name Dose Route Start Last Admin Trade Name Freq PRN Reason Stop Dose Admin Hydrocodone Bitart/Acetaminophen 1 each 08/22/18 12:13 08/23/18 08:04 [place] 10 PO 1 each Q6H PRN Administration Pain Acyclovir 400 mg 08/22/18 17:30 08/23/18 07:56 Zovirax PO 400 mg AC-BID JOVANNY Administration Atorvastatin Calcium 40 mg 08/22/18 21:00 08/22/18 20:15 Lipitor PO 40 mg HS JOVANNY Administration Cyanocobalamin 1,000 mcg 08/23/18 09:00 08/23/18 07:56 Vitamin B-12 PO 1,000 mcg DAILY JOVANNY Administration Famotidine 20 mg 08/22/18 16:00 08/22/18 11:55 Pepcid IV 08/26/18 16:01 20 mg Q24H JOVANNY Administration Glimepiride 1 mg 08/23/18 07:30 08/23/18 08:01 Amaryl PO 1 mg AC-BRKFST JOVANNY Administration Sodium Chloride 1,000 mls @ 100 mls/hr 08/22/18 08:00 08/23/18 05:51 Saline 0.9% IV 100 mls/hr .Q10H JOVANNY Administration Ondansetron HCl 16 mg/ Sodium 58 mls @ 100 mls/hr 08/22/18 16:00 08/22/18 11: 54 Chloride IVPB 08/26/18 16:35 100 mls/hr Q24H JOVANNY Administration Ondansetron HCl 8 mg/ Sodium 54 mls @ 100 mls/hr 08/22/18 09:00 Chloride IVPB BID PRN Nausea Etoposide 110 mg/ Sodium 505.5 mls @ 21.063 mls/hr 08/22/18 18:00 08/22/18 17 :36 Chloride IV 08/26/18 17:59 21.063 mls/hr Q24H JOVANNY Administration Doxorubicin HCl 22 mg/ Sodium 261 mls @ 10.875 mls/hr 08/22/18 18:00 17:35 Chloride IV 08/26/18 17:59 10.875 mls/hr Q24H JOVANNY Administration Vincristine Sulfate 0.9 mg/ 50.9 mls @ 2.121 mls/hr 08/22/18 18:00 08/22/18 17:36 Sodium Chloride IV 08/26/18 17:59 2.121 mls/hr Q24H JOVANNY Administration Cyclophosphamide 1,640 mg/ 582 mls @ 1,164 mls/hr 08/26/18 21:00 Sodium Chloride IV 08/26/18 21:29 ONCE ONE Insulin Aspart 0 unit 08/22/18 18:00 08/23/18 07:56 Novolog SQ 4 unit ACHS JOVANNY Administration Protocol Levothyroxine Sodium 150 mcg 08/23/18 06:30 08/23/18 05:51 Synthroid PO 150 mcg 0630 JOVANNY Administration Lisinopril 5 mg 08/23/18 09:00 08/23/18 07:56 Zestril PO 5 mg DAILY JOVANNY Administration Meclizine HCl 25 mg 08/22/18 12:13 08/23/18 05:51 Antivert PO 25 mg TID PRN Administration Vertigo Montelukast Sodium 10 mg 08/23/18 21:00 Singulair PO HS JOVANNY Pantoprazole Sodium 40 mg 08/22/18 17:30 08/23/18 07:55 Protonix PO 40 mg AC-BID JOVANNY Administration Prednisone 100 mg 08/22/18 09:00 08/23/18 07:56 PO 08/26/18 21:01 100 mg BID JOVANNY Administration Prednisone 30 mg 08/22/18 09:00 08/23/18 07:56 PO 08/26/18 21:01 30 mg BID JOVANNY Administration Ropinirole HCl 0.5 mg 08/22/18 21:00 08/22/18 20:19 Requip PO 0.5 mg HS JOVANNY Administration Sodium Bicarbonate 5 ml 08/22/18 13:00 08/23/18 08:02 PO 5 ml QID JOVANNY Administration Intake and Output 08/22/18 08/23/18 08/23/18 22:59 06:59 14:59 Intake Total 1178.8 480 240 Balance 1178.8 480 240 Intake: Intake, IV Titration 458.8 Amount riTUXimab 800 mg In 458.8 Sodium Chloride 0.9% 500 ml 500 ml @ Titrate IV . Q0M ONE Rx#:[id number] Oral 720 480 240 Other: # Voids 1 Weight 114.759 kg 114.759 kg Patient Weight 08/24/18 06:59 Weight 114.759 kg 08/23/18 07:26 08/23/18 07:26
[2018-08-23] MEDS ORDERED: ARTIFICIAL TEARS-HYPROMELLOSE DROPS 15 ML BTL BOTH EYES PRN (12:52)
[2018-08-23 17:16] LABS: Glucose,Whole Blood 172 mg/dL (75-99)
--- NOTE | 2018-08-23 17:34 | P.PN ---
Subjective Progress Note Date: 08/23/18 Principal diagnosis: Admission for second cycle REPOCH for diffuse large B cell lymphoma Patient seen today in follow-up. She has no complaints related to chemotherapy infusion. She denies any side effects. Patient is following the recommendations of supportive care including salt and soda mouth rinses, ambulation, liberal fluid intake. Patient denies headaches, dizziness, shortness of breath, cough, she did have some mild nausea, denies any vomiting, she is tolerating oral intake, no abdominal discomfort, indigestion, heartburn, dysuria, hematuria, diarrhea or constipation, swelling or pain. Objective - Vital Signs Vital signs: Vital Signs Temp 98 F 08/23/18 16:00 Pulse 60 08/23/18 16:00 Resp 16 08/23/18 16:00 BP 126/50 08/23/18 16:00 Pulse Ox 96 08/23/18 16:00 Intake & Output 08/22/18 08/23/18 08/23/18 18:59 06:59 18:59 Intake Total 1390.0 1200 1570.4 Balance 1390.0 1200 1570.4 Weight 114.759 kg 114.759 kg 114.759 kg Intake: Intake, IV Titration 1030.0 1090.4 Amount DOXOrubicin HCL 22 mg In 88 Sodium Chloride 0.9% 250 ml @ 10.875 mls/hr IV Q24H [facility] Rx#:[id number] Etoposide 110 mg In 184 Sodium Chloride 0.9% 500 ml 500 ml @ 21.063 mls/hr IV Q24H [facility] Rx#: [id number] Ondansetron 16 mg In 50 Sodium Chloride 0.9% 50 ml @ 100 mls/hr IVPB Q24H [facility] Rx#:[id number] Sodium Chloride 0.9% 1, 400 800 000 ml @ 100 mls/hr IV . Q10H [facility] Rx#:[id number] riTUXimab 800 mg In 580.0 Sodium Chloride 0.9% 500 ml 500 ml @ Titrate IV . Q0M [facility] Rx#:[id number] vinCRIStine SULFATE 0.9 18.4 mg In Sodium Chloride 0.9 % 50 ml @ 2.121 mls/hr IV Q24H [facility] Rx#:[id number] Oral 360 1200 480 Other: # Voids 3 1 4 - Constitutional General appearance: Present: cooperative, no acute distress, obese - EENT Eyes: Present: anicteric sclerae, EOMI ENT: Present: hearing grossly normal, normal oropharynx - Respiratory Respiratory: bilateral: CTA - Cardiovascular Heart sounds: normal: S1, S2 - Peripheral edema leg Peripheral Edema: bilateral: None - Gastrointestinal General gastrointestinal: Present: normal bowel sounds, soft - Integumentary Integumentary: Present: normal - Neurologic Neurologic: Present: CNII-XII intact - Musculoskeletal Musculoskeletal: Present: strength equal bilaterally - Psychiatric Psychiatric: Present: A&O x's 3, appropriate affect, intact judgment & insight - Labs CBC & Chem 7: 08/23/18 07:26 08/23/18 07:26 Labs: Abnormal Lab Results - Last 24 Hours (Table) 08/22/18 08/22/18 08/23/18 Range/Units 17:19 20:16 07:23 WBC (3.8-10.6) k/uL RBC (3.80-5.40) m/uL Hgb (11.4-16.0) gm/dL Hct (34.0-46.0) % RDW (11.5-15.5) % Neutrophils # (1.3-7.7) k/uL Lymphocytes # (1.0-4.8) k/uL Chloride (98-107) mmol/L Glucose (74-99) mg/dL POC Glucose (mg/dL) 209 H 240 H 204 H (75-99) mg/dL Total Protein (6.3-8.2) g/dL Albumin (3.5-5.0) g/dL 08/23/18 08/23/18 08/23/18 Range/Units 07:26 07:26 11:55 WBC 13.2 H (3.8-10.6) k/uL RBC 2.99 L (3.80-5.40) m/uL Hgb 8.9 L (11.4-16.0) gm/dL Hct 28.7 L (34.0-46.0) % RDW 16.9 H (11.5-15.5) % Neutrophils # 11.7 H (1.3-7.7) k/uL Lymphocytes # 0.6 L (1.0-4.8) k/uL Chloride 110 H (98-107) mmol/L Glucose 169 H (74-99) mg/dL POC Glucose (mg/dL) 141 H (75-99) mg/dL Total Protein 5.3 L (6.3-8.2) g/dL Albumin 3.1 L (3.5-5.0) g/dL 08/23/18 Range/Units 17:15 WBC (3.8-10.6) k/uL RBC (3.80-5.40) m/uL Hgb (11.4-16.0) gm/dL Hct (34.0-46.0) % RDW (11.5-15.5) % Neutrophils # (1.3-7.7) k/uL Lymphocytes # (1.0-4.8) k/uL Chloride (98-107) mmol/L Glucose (74-99) mg/dL POC Glucose (mg/dL) 172 H (75-99) mg/dL Total Protein (6.3-8.2) g/dL Albumin (3.5-5.0) g/dL Assessment and Plan (1) Diffuse large B-cell lymphoma of extranodal site Narrative/Plan: continue chemotherapy without adjustment. Daily labs as ordered. Continue all supportive care as prescribed. daily follow-up. Current Visit: Yes Status: Acute Priority: High Code(s): C83.39 - DIFFUSE LARGE B-CELL LYMPHOMA, EXTRNOD AND SOLID ORGAN SITES SNOMED Code(s): 336412248 (2) Bradyarrhythmia Narrative/Plan: Cardiology consulted, recommendations appreciated Current Visit: Yes Status: Acute Priority: High Code(s): I49.8 - OTHER SPECIFIED CARDIAC ARRHYTHMIAS SNOMED Code(s): 132364430 (3) CAD (coronary artery disease) Current Visit: No Status: Acute Code(s): I25.10 - ATHSCL HEART DISEASE OF [place] CORONARY ARTERY W/O ANG PCTRS SNOMED Code(s): 05800573 (4) Chronic pain syndrome Current Visit: No Status: Chronic Priority: Low Code(s): G89.4 - CHRONIC PAIN SYNDROME SNOMED Code(s): 236668161 Plan: GI and DVT prophylaxis
[2018-08-23] MEDS: ONDANSETRON 16 MG in SODIUM CHLORIDE 0.9% 50 ML IVPB SCH (19:32)
[2018-08-23] MEDS: FAMOTIDINE 20 MG/2 ML VIAL IV SCH (19:32)
[2018-08-23] MEDS: VINCRISTINE SULFATE IV SCH (19:33)
[2018-08-23] MEDS: DOXORUBICIN HCL IV SCH (19:33)
[2018-08-23] MEDS: SODIUM CHLORIDE 0.9% IV SCH ×3 (19:33)
[2018-08-23] MEDS: ETOPOSIDE IV SCH (19:33)
[2018-08-23] MEDS: MONTELUKAST 10 MG TAB PO SCH (20:12)
[2018-08-23] MEDS: ATORVASTATIN 40 MG TAB PO SCH (20:12)
[2018-08-23 20:44] LABS: Glucose,Whole Blood 155 mg/dL (75-99)
[2018-08-23 20:44] LABS: Glucose,Whole Blood 400 mg/dL (75-99)
[2018-08-24] MEDS ORDERED: HYDROcodone/APAP 10-325MG 1 EACH TAB ONE (02:40)
[2018-08-24] MEDS: LEVOTHYROXINE 75 MCG TAB PO SCH (04:54)
[2018-08-24] MEDS: SODIUM CHLORIDE 0.9% 1,000 ML IV SCH ×2 (04:55→20:24)
[2018-08-24 07:21] LABS: Glucose,Whole Blood 164 mg/dL (75-99)
[2018-08-24 07:24] LABS: ALT 21 U/L (9-52); AST 17 U/L (14-36); Albumin 3.1 g/dL (3.5-5.0); Alkaline Phosphatase 57 U/L (38-126); Anion Gap 4 mmol/L; Blood Urea Nitrogen 20 mg/dL (7-17); Calcium 9.8 mg/dL (8.4-10.2); Carbon Dioxide 25 mmol/L (22-30); Chloride 112 mmol/L (98-107); Glucose 179 mg/dL (74-99); Sodium 141 mmol/L (137-145); Total Bilirubin 0.3 mg/dL (0.2-1.3); Total Protein 5.2 g/dL (6.3-8.2)
[2018-08-24 07:51] LABS: Anisocytosis Slight; Basophils % (A) 0 %; Eosinophils % (A) 0 %; HCT 29.9 % (34.0-46.0); HGB 9.1 gm/dL (11.4-16.0); Hypochromasia Moderate; Lymphocytes # (A) 0.6 k/uL (1.0-4.8); Lymphocytes % (A) 5 %; MCH 29.5 pg (25.0-35.0); MCHC 30.3 g/dL (31.0-37.0); MCV 97.2 fL (80.0-100.0); Macrocytosis Slight; Mean Platelet Volume 7.1; Monocytes # (A) 0.6 k/uL (0-1.0); Monocytes % (A) 5 %; Neutrophils # (A) 10.4 k/uL (1.3-7.7); Neutrophils % (A) 89 %; Platelet Count 422 k/uL (150-450); RBC 3.08 m/uL (3.80-5.40); RDW 17.5 % (11.5-15.5); WBC 11.7 k/uL (3.8-10.6)
[2018-08-24] MEDS: INSULIN ASPART 100 UNIT/ML 1 ML 10 ML VIAL SQ SCH ×4 (07:52→20:23)
[2018-08-24] MEDS: predniSONE 50 MG TAB PO SCH ×2 (07:53→20:23)
[2018-08-24] MEDS: predniSONE 10 MG TAB PO SCH ×2 (07:54→20:23)
[2018-08-24] MEDS: GLIMEPIRIDE 1 MG TAB PO SCH (07:55)
[2018-08-24] MEDS: PANTOPRAZOLE 40 MG TABLET PO SCH ×2 (07:56→17:41)
[2018-08-24] MEDS: CYANOCOBALAMIN 500 MCG TAB PO SCH (07:56)
[2018-08-24] MEDS: ACYCLOVIR 200 MG CAP PO SCH ×2 (07:56→17:41)
[2018-08-24] MEDS: LISINOPRIL 5 MG TAB PO SCH (07:57)
[2018-08-24] MEDS: SALT AND SODA MOUTHWASH 1,000 ML PO SCH ×4 (07:58→22:18)
[2018-08-24] MEDS: HYDROcodone/APAP 10-325MG 1 EACH TAB PO PRN ×3 (09:01→22:15)
[2018-08-24 11:55] LABS: Glucose,Whole Blood 153 mg/dL (75-99)
--- NOTE | 2018-08-24 12:31 | CDI ---
Documentation Clarification Form Date: 08/24/2018 12:24:47 PM From: Awilda HoyosSandhuMICHAEL titus, CCDS Admit Date: 08/22/2018 8:04:00 AM Patient Name: Dylon Ochoa Visit Number: [id number] Discharge Date: ATTENTION: The Clinical Documentation Specialists (CDI) and [facility] Coding Staff appreciate your assistance in clarifying documentation. Please respond to the clarification below the line at the bottom and electronically sign. The CDI & [facility] Coding staff will review the response and follow-up if needed. Please note: Queries are made part of the Legal Health Record. If you have any questions, please contact the author of this message via ITS. Dr. Padilla Santiago M.D.: A diagnosis of anemia lacks specificity to accurately reflect your patients severity of condition and clarification is needed. History/Risk Factors: Diffuse large B cell lymphoma of the GI tract. Hypertension, Hyperlipidemia, CAD w/previous CABG & Hypothyroidism. Clinical indicators: Presented for 2nd cycle of chemotherapy infusion. Hemoglobin: 9.2 - 8.9* Hematocrit: 29.8 - 28.7* Treatment: H/H, IV fl rate 100, IV Zofran, po [place], IV Solumedrol, IV chemo ( Rituximab). In order to capture the severity of condition, please clarify the type of anemia and etiology if known: Acute blood loss anemia Acute on chronic blood loss anemia Chronic blood loss anemia Hemolytic anemia Drug induced anemia Anemia due to malignancy Nutritional anemia Anemia of chronic kidney disease Unable to determine Other, please specify (Last Revision: May 2017) MTDD
--- NOTE | 2018-08-24 13:44 | P.PN ---
Subjective Progress Note Date: 08/24/18 Principal diagnosis: Admission for second cycle REPOCH for diffuse large B cell lymphoma Pt seen in f/u. She is doing well, she does get LANE from steroids, she uses the norco and it helps. No fever, oral irritation, sore throat, mild nausea-well controlled on antiemetics-, no NASEEM, cough, abd pain, bloating, dysuria, hematuria, she had a normal consistency BM today and 1 episode of diarrhea, no bleeding or swelling to report. Objective - Vital Signs Vital signs: Vital Signs Temp 98.0 F 08/24/18 12:00 Pulse 58 L 08/24/18 12:00 Resp 18 08/24/18 12:00 BP 129/57 08/24/18 12:00 Pulse Ox 96 08/24/18 12:00 Intake & Output 08/23/18 08/24/18 08/24/18 18:59 06:59 18:59 Intake Total 1570.4 1840 Balance 1570.4 1840 Weight 114.759 kg 120.5 kg Intake: Intake, IV Titration 1090.4 450 Amount DOXOrubicin HCL 22 mg In 88 Sodium Chloride 0.9% 250 ml @ 10.875 mls/hr IV Q24H [facility] Rx#:[id number] Etoposide 110 mg In 184 Sodium Chloride 0.9% 500 ml 500 ml @ 21.063 mls/hr IV Q24H [facility] Rx#: [id number] Ondansetron 16 mg In 50 Sodium Chloride 0.9% 50 ml @ 100 mls/hr IVPB Q24H [facility] Rx#:[id number] Sodium Chloride 0.9% 1, 800 400 000 ml @ 100 mls/hr IV . Q10H [facility] Rx#:[id number] vinCRIStine SULFATE 0.9 18.4 mg In Sodium Chloride 0.9 % 50 ml @ 2.121 mls/hr IV Q24H [facility] Rx#:[id number] Oral 480 1390 Other: # Voids 4 2 - Constitutional General appearance: Present: cooperative, morbidly obese, no acute distress - EENT EENT Comment(s): pt did shave the rest of her hair off night before last Eyes: Present: anicteric sclerae, EOMI ENT: Present: hearing grossly normal, normal oropharynx - Neck Neck: Absent: lymphadenopathy - Respiratory Respiratory: bilateral: CTA - Cardiovascular Heart sounds: normal: S1, S2 Abnormal Heart Sounds: Absent: systolic murmur, diastolic murmur, rub, S3 Gallop , S4 Gallop, click, other - Peripheral edema leg Peripheral Edema: bilateral: None - Gastrointestinal General gastrointestinal: Present: normal bowel sounds, soft. Absent: absent bowel sounds, decreased bowel sounds, distended, hepatomegaly, hyperactive bowel sounds, organomegaly, rigid, scaphoid, splenomegaly, tenderness, umbilical hernia, ventral hernia - Integumentary Integumentary: Present: normal - Neurologic Neurologic: Present: CNII-XII intact - Musculoskeletal Musculoskeletal: Present: strength equal bilaterally - Psychiatric Psychiatric: Present: A&O x's 3, appropriate affect, intact judgment & insight - Labs CBC & Chem 7: 08/24/18 06:31 08/24/18 06:31 Labs: Abnormal Lab Results - Last 24 Hours (Table) 08/23/18 08/23/18 08/23/18 Range/Units 17:15 20:41 20:42 WBC (3.8-10.6) k/uL RBC (3.80-5.40) m/uL Hgb (11.4-16.0) gm/dL Hct (34.0-46.0) % MCHC (31.0-37.0) g/dL RDW (11.5-15.5) % Neutrophils # (1.3-7.7) k/uL Lymphocytes # (1.0-4.8) k/uL Chloride (98-107) mmol/L BUN (7-17) mg/dL Glucose (74-99) mg/dL POC Glucose (mg/dL) 172 H 400 H 155 H (75-99) mg/dL Total Protein (6.3-8.2) g/dL Albumin (3.5-5.0) g/dL 08/24/18 08/24/18 08/24/18 Range/Units 06:31 06:31 07:17 WBC 11.7 H (3.8-10.6) k/uL RBC 3.08 L (3.80-5.40) m/uL Hgb 9.1 L (11.4-16.0) gm/dL Hct 29.9 L (34.0-46.0) % MCHC 30.3 L (31.0-37.0) g/dL RDW 17.5 H (11.5-15.5) % Neutrophils # 10.4 H (1.3-7.7) k/uL Lymphocytes # 0.6 L (1.0-4.8) k/uL Chloride 112 H (98-107) mmol/L BUN 20 H (7-17) mg/dL Glucose 179 H (74-99) mg/dL POC Glucose (mg/dL) 164 H (75-99) mg/dL Total Protein 5.2 L (6.3-8.2) g/dL Albumin 3.1 L (3.5-5.0) g/dL 08/24/18 Range/Units 11:54 WBC (3.8-10.6) k/uL RBC (3.80-5.40) m/uL Hgb (11.4-16.0) gm/dL Hct (34.0-46.0) % MCHC (31.0-37.0) g/dL RDW (11.5-15.5) % Neutrophils # (1.3-7.7) k/uL Lymphocytes # (1.0-4.8) k/uL Chloride (98-107) mmol/L BUN (7-17) mg/dL Glucose (74-99) mg/dL POC Glucose (mg/dL) 153 H (75-99) mg/dL Total Protein (6.3-8.2) g/dL Albumin (3.5-5.0) g/dL Assessment and Plan (1) Diffuse large B-cell lymphoma of extranodal site Narrative/Plan: Pt tolerating treatment well so far. Continue chemotherapy without adjustment. Daily labs as ordered. Continue all supportive care as prescribed. Daily follow-up. Current Visit: Yes Status: Acute Priority: High Code(s): C83.39 - DIFFUSE LARGE B-CELL LYMPHOMA, EXTRNOD AND SOLID ORGAN SITES SNOMED Code(s): 526207600 (2) Bradyarrhythmia Narrative/Plan: Cardiology consult and recommendations appreciated. Pt remains on telemetry Current Visit: Yes Status: Acute Priority: High Code(s): I49.8 - OTHER SPECIFIED CARDIAC ARRHYTHMIAS SNOMED Code(s): 335336517 (3) CAD (coronary artery disease) Current Visit: No Status: Acute Code(s): I25.10 - ATHSCL HEART DISEASE OF [place] CORONARY ARTERY W/O ANG PCTRS SNOMED Code(s): 12909914 (4) Chronic pain syndrome Narrative/Plan: Patient's home pain medications have been reordered. Patient states adequate pain control with the same. Current Visit: No Status: Chronic Priority: Low Code(s): G89.4 - CHRONIC PAIN SYNDROME SNOMED Code(s): 431046497 Plan: GI and DVT prophylaxis
[2018-08-24] MEDS: ENOXAPARIN 40 MG/0.4 ML SYRINGE SQ SCH (15:39)
--- NOTE | 2018-08-24 15:49 | PN ---
PROGRESS NOTE SUBJECTIVE: 68-year-old white female, diffuse large cell B-cell lymphoma. Continues on the chemo protocol, day 3. Cardiovascular S1, S2. Lungs are clear. GI soft. Heart beat 80s to 90s. Hematology negative Hom[place]. Psych fair mood and affect. Integument: Hair is all gone. LABS: Hemoglobin is 9.1, white count 11.7. ASSESSMENT: 1. Beta cell lymphoma. 2. Diabetes mellitus. 3. History of hypertension. 4. Dyslipidemia. 5. Hypothyroidism. Continue current treatments for asthma. The patient is breathing well. Beta blockers are on hold due to bradycardia history. MMODL / IJN: [id number] /
[2018-08-24 17:16] LABS: Glucose,Whole Blood 168 mg/dL (75-99)
[2018-08-24] MEDS: MECLIZINE 25 MG TAB PO PRN (18:42)
[2018-08-24 20:08] LABS: Glucose,Whole Blood 204 mg/dL (75-99)
[2018-08-24] MEDS: DOXORUBICIN HCL IV SCH (20:22)
[2018-08-24] MEDS: ETOPOSIDE IV SCH (20:22)
[2018-08-24] MEDS: SODIUM CHLORIDE 0.9% IV SCH ×3 (20:22)
[2018-08-24] MEDS: ONDANSETRON 16 MG in SODIUM CHLORIDE 0.9% 50 ML IVPB SCH (20:22)
[2018-08-24] MEDS: FAMOTIDINE 20 MG/2 ML VIAL IV SCH (20:22)
[2018-08-24] MEDS: VINCRISTINE SULFATE IV SCH (20:22)
[2018-08-24] MEDS: ATORVASTATIN 40 MG TAB PO SCH (20:23)
[2018-08-24] MEDS: MONTELUKAST 10 MG TAB PO SCH (20:24)
[2018-08-25] MEDS: HYDROcodone/APAP 10-325MG 1 EACH TAB PO PRN ×3 (03:54→17:28)
[2018-08-25] MEDS: SODIUM CHLORIDE 0.9% 1,000 ML IV SCH ×2 (05:40→17:22)
[2018-08-25] MEDS: LEVOTHYROXINE 75 MCG TAB PO SCH (05:41)
[2018-08-25 07:03] LABS: Glucose,Whole Blood 170 mg/dL (75-99)
[2018-08-25 07:41] LABS: Anisocytosis Slight; Basophils % (A) 0 %; Eosinophils % (A) 0 %; HCT 28.6 % (34.0-46.0); HGB 8.8 gm/dL (11.4-16.0); Hypochromasia Slight; Lymphocytes # (A) 0.5 k/uL (1.0-4.8); Lymphocytes % (A) 7 %; MCH 29.7 pg (25.0-35.0); MCHC 30.6 g/dL (31.0-37.0); Macrocytosis Slight; Mean Platelet Volume 6.9; Monocytes # (A) 0.4 k/uL (0-1.0); Monocytes % (A) 6 %; Neutrophils # (A) 6.2 k/uL (1.3-7.7); Neutrophils % (A) 86 %; Platelet Count 418 k/uL (150-450); RBC 2.95 m/uL (3.80-5.40); RDW 17.7 % (11.5-15.5); WBC 7.3 k/uL (3.8-10.6)
[2018-08-25] MEDS: predniSONE 50 MG TAB PO SCH ×2 (08:08→21:12)
[2018-08-25] MEDS: GLIMEPIRIDE 1 MG TAB PO SCH (08:08)
[2018-08-25] MEDS: ACYCLOVIR 200 MG CAP PO SCH ×2 (08:08→17:22)
[2018-08-25] MEDS: ENOXAPARIN 40 MG/0.4 ML SYRINGE SQ SCH (08:09)
[2018-08-25] MEDS: INSULIN ASPART 100 UNIT/ML 1 ML 10 ML VIAL SQ SCH ×4 (08:09→21:13)
[2018-08-25] MEDS: LISINOPRIL 5 MG TAB PO SCH (08:09)
[2018-08-25] MEDS: predniSONE 10 MG TAB PO SCH ×2 (08:09→21:11)
[2018-08-25] MEDS: CYANOCOBALAMIN 500 MCG TAB PO SCH (08:09)
[2018-08-25] MEDS: PANTOPRAZOLE 40 MG TABLET PO SCH ×2 (08:09→17:22)
[2018-08-25] MEDS: SALT AND SODA MOUTHWASH 1,000 ML PO SCH ×3 (08:10→17:22)
[2018-08-25 08:30] LABS: ALT 23 U/L (9-52); AST 19 U/L (14-36); Alkaline Phosphatase 52 U/L (38-126); Anion Gap 4 mmol/L; Blood Urea Nitrogen 23 mg/dL (7-17); Calcium 9.7 mg/dL (8.4-10.2); Carbon Dioxide 26 mmol/L (22-30); Chloride 111 mmol/L (98-107); Glucose 152 mg/dL (74-99); Potassium 4.8 mmol/L (3.5-5.1); Sodium 141 mmol/L (137-145); Total Bilirubin 0.5 mg/dL (0.2-1.3); Total Protein 5.2 g/dL (6.3-8.2)
--- NOTE | 2018-08-25 10:13 | CDI ---
Documentation Clarification Form Date: 08/25/2018 10:04:16 AM From: Awilda SandhuMICHAEL, CCDS Admit Date: 08/22/2018 8:04:00 AM Patient Name: Dylon Ochoa Visit Number: [id number] Discharge Date: ATTENTION: The Clinical Documentation Specialists (CDI) and [facility] Coding Staff appreciate your assistance in clarifying documentation. Please respond to the clarification below the line at the bottom and electronically sign. The CDI & [facility] Coding staff will review the response and follow-up if needed. Please note: Queries are made part of the Legal Health Record. If you have any questions, please contact the author of this message via ITS. Dr. Padilla Santiago: Asthma is documented in the Medical Management consult: "she had difficulty with asthma last admission." "We will monitor for signs of bradycardia & asthma. " Per the 08/24 progress note: continue current treatments for asthma. History/risk factors: Asthma, CAD, DM, Hyperlipidemia, Hypertension, OA, Sleep apnea and B Cell Lymphoma. Clinical Indicators: Presented for 2nd cycle of chemotherapy for B Cell Lymphoma Radiology: None this admission Vital Signs: T 97.4*, P 73 - 68, R 16, BP 122/84, PO 95 - 94 RA Breathing assessment: nonlabored, normal pattern. Treatment: IV fluid rate 100, IV Zofran, po Prednisone, IV Benadryl, IV Solumedrol, po Singulair In your professional opinion, can you please further specify the following, if known? Severity o Mild intermittent o Mild persistent o Moderate persistent o Severe persistent o Other, please specify o Unable to determine Form or Type o Cough variant o Childhood o Exercise induced bronchospasm o Extrinsic allergic o Idiosyncratic o Intrinsic nonallergic o Late-onset o Mixed o Other, please specify o Unable to determine (Last Revision: November 2017) MTDD
[2018-08-25 11:31] LABS: Glucose,Whole Blood 125 mg/dL (75-99)
--- NOTE | 2018-08-25 13:51 | P.PN ---
Subjective Progress Note Date: 08/25/18 Principal diagnosis: Admission for second cycle REPOCH for diffuse large B cell lymphoma Day 3 of chemo. Pt seen in f/u. She has her chronic back ache and headache from steroids, her pain med controls it, she has intermittent nausea that is well managed on antiemetic. No fever, oral irritation, tolerating oral intake, no vomiting, cough, abd pain, bloating, normal BM today, no dysuria, bleeding or swelling, she is ambulating. Objective - Vital Signs Vital signs: Vital Signs Temp 97.8 F 08/25/18 12:00 Pulse 47 L 08/25/18 12:00 Resp 18 08/25/18 12:00 BP 113/74 08/25/18 12:00 Pulse Ox 97 08/25/18 12:00 Intake & Output 08/24/18 08/25/18 08/25/18 18:59 06:59 18:59 Intake Total 1102.4 2208 720 Balance 1102.4 2208 720 Weight 120.5 kg Intake: Intake, IV Titration 1102.4 1308 Amount Cyclophosphamide 1,640 mg 12 In Sodium Chloride 0.9% 500 ml 500 ml @ 1164 mls/ hr IV ONCE ONE Rx#: [id number] DOXOrubicin HCL 22 mg In 96 88 Sodium Chloride 0.9% 250 ml @ 10.875 mls/hr IV Q24H [facility] Rx#:[id number] Etoposide 110 mg In 187.2 184 Sodium Chloride 0.9% 500 ml 500 ml @ 21.063 mls/hr IV Q24H [facility] Rx#: [id number] Ondansetron 16 mg In 100 Sodium Chloride 0.9% 50 ml @ 100 mls/hr IVPB Q24H [facility] Rx#:[id number] Sodium Chloride 0.9% 1, 800 900 000 ml @ 100 mls/hr IV . Q10H [facility] Rx#:[id number] vinCRIStine SULFATE 0.9 19.2 24 mg In Sodium Chloride 0.9 % 50 ml @ 2.121 mls/hr IV Q24H [facility] Rx#:[id number] Oral 900 720 Other: # Voids 2 2 # Bowel Movements 1 - Constitutional General appearance: Present: cooperative, morbidly obese, no acute distress - EENT Eyes: Present: anicteric sclerae, edentulous, EOMI ENT: Present: hearing grossly normal, normal oropharynx - Neck Neck: Present: normal ROM. Absent: lymphadenopathy, other, rigidity, stridor - Respiratory Respiratory: bilateral: CTA - Cardiovascular Rhythm: regular Heart sounds: normal: S1, S2 Abnormal Heart Sounds: Present: systolic murmur. Absent: diastolic murmur, rub , S3 Gallop, S4 Gallop, click, other - Gastrointestinal General gastrointestinal: Present: normal bowel sounds, soft. Absent: absent bowel sounds, decreased bowel sounds, distended, hepatomegaly, hyperactive bowel sounds, organomegaly, rigid, scaphoid, splenomegaly, tenderness, umbilical hernia, ventral hernia - Integumentary Integumentary: Present: normal turgor, pale - Neurologic Neurologic: Present: CNII-XII intact - Musculoskeletal Musculoskeletal: Present: strength equal bilaterally - Psychiatric Psychiatric: Present: A&O x's 3, appropriate affect, intact judgment & insight - Labs CBC & Chem 7: 08/25/18 07:20 08/25/18 07:20 Labs: Abnormal Lab Results - Last 24 Hours (Table) 08/24/18 08/24/18 08/25/18 Range/Units 17:15 20:07 07:02 RBC (3.80-5.40) m/uL Hgb (11.4-16.0) gm/dL Hct (34.0-46.0) % MCHC (31.0-37.0) g/dL RDW (11.5-15.5) % Lymphocytes # (1.0-4.8) k/uL Chloride (98-107) mmol/L BUN (7-17) mg/dL Glucose (74-99) mg/dL POC Glucose (mg/dL) 168 H 204 H 170 H (75-99) mg/dL Total Protein (6.3-8.2) g/dL Albumin (3.5-5.0) g/dL 08/25/18 08/25/18 08/25/18 Range/Units 07:20 07:20 11:29 RBC 2.95 L (3.80-5.40) m/uL Hgb 8.8 L (11.4-16.0) gm/dL Hct 28.6 L (34.0-46.0) % MCHC 30.6 L (31.0-37.0) g/dL RDW 17.7 H (11.5-15.5) % Lymphocytes # 0.5 L (1.0-4.8) k/uL Chloride 111 H (98-107) mmol/L BUN 23 H (7-17) mg/dL Glucose 152 H (74-99) mg/dL POC Glucose (mg/dL) 125 H (75-99) mg/dL Total Protein 5.2 L (6.3-8.2) g/dL Albumin 3.0 L (3.5-5.0) g/dL Assessment and Plan (1) Diffuse large B-cell lymphoma of extranodal site Narrative/Plan: Pt continues to tolerate treatment well. Only mild side effects and hematological toxicities. Continue chemotherapy without adjustment. Daily labs as ordered. Continue all supportive care as prescribed. Daily follow-up. Current Visit: Yes Status: Acute Priority: High Code(s): C83.39 - DIFFUSE LARGE B-CELL LYMPHOMA, EXTRNOD AND SOLID ORGAN SITES SNOMED Code(s): 648469850 (2) Bradyarrhythmia Narrative/Plan: Cardiology consult and recommendations appreciated. Pt remains on telemetry Current Visit: Yes Status: Acute Priority: High Code(s): I49.8 - OTHER SPECIFIED CARDIAC ARRHYTHMIAS SNOMED Code(s): 496324219 (3) CAD (coronary artery disease) Current Visit: No Status: Acute Code(s): I25.10 - ATHSCL HEART DISEASE OF [place] CORONARY ARTERY W/O ANG PCTRS SNOMED Code(s): 08156977 (4) Chronic pain syndrome Current Visit: No Status: Chronic Priority: Low Code(s): G89.4 - CHRONIC PAIN SYNDROME SNOMED Code(s): 610140484 Plan: GI and DVT prophylaxis
[2018-08-25 17:06] LABS: Glucose,Whole Blood 179 mg/dL (75-99)
[2018-08-25 20:27] LABS: Glucose,Whole Blood 141 mg/dL (75-99)
[2018-08-25] MEDS: FAMOTIDINE 20 MG/2 ML VIAL IV SCH (20:59)
[2018-08-25] MEDS: VINCRISTINE SULFATE IV SCH (21:02)
[2018-08-25] MEDS: ETOPOSIDE IV SCH (21:02)
[2018-08-25] MEDS: DOXORUBICIN HCL IV SCH (21:02)
[2018-08-25] MEDS: SODIUM CHLORIDE 0.9% IV SCH ×3 (21:02)
[2018-08-25] MEDS: MONTELUKAST 10 MG TAB PO SCH (21:11)
[2018-08-25] MEDS: MECLIZINE 25 MG TAB PO PRN (21:12)
[2018-08-25] MEDS: ATORVASTATIN 40 MG TAB PO SCH (21:12)
[2018-08-25] MEDS: ONDANSETRON 16 MG in SODIUM CHLORIDE 0.9% 50 ML IVPB SCH (21:13)
[2018-08-26] MEDS: HYDROcodone/APAP 10-325MG 1 EACH TAB PO PRN ×4 (00:27→19:58)
[2018-08-26] MEDS: SALT AND SODA MOUTHWASH 1,000 ML PO SCH ×5 (01:05→20:05)
[2018-08-26] MEDS: SODIUM CHLORIDE 0.9% 1,000 ML IV SCH ×3 (02:25→20:05)
[2018-08-26] MEDS: LEVOTHYROXINE 75 MCG TAB PO SCH (05:52)
[2018-08-26 07:42] LABS: Glucose,Whole Blood 140 mg/dL (75-99)
[2018-08-26] MEDS: ACYCLOVIR 200 MG CAP PO SCH ×2 (07:56→17:36)
[2018-08-26] MEDS: INSULIN ASPART 100 UNIT/ML 1 ML 10 ML VIAL SQ SCH ×4 (07:56→20:38)
[2018-08-26] MEDS: PANTOPRAZOLE 40 MG TABLET PO SCH ×2 (07:57→17:36)
[2018-08-26] MEDS: GLIMEPIRIDE 1 MG TAB PO SCH (07:57)
[2018-08-26] MEDS: CYANOCOBALAMIN 500 MCG TAB PO SCH (07:58)
[2018-08-26] MEDS: predniSONE 50 MG TAB PO SCH ×2 (07:58→19:58)
[2018-08-26] MEDS: predniSONE 10 MG TAB PO SCH ×2 (07:58→19:58)
[2018-08-26] MEDS: LISINOPRIL 5 MG TAB PO SCH (07:59)
[2018-08-26] MEDS: ENOXAPARIN 40 MG/0.4 ML SYRINGE SQ SCH (07:59)
[2018-08-26 08:14] LABS: Anisocytosis Slight; Basophils % (A) 0 %; Eosinophils % (A) 0 %; HCT 29.3 % (34.0-46.0); Hypochromasia Slight; Lymphocytes # (A) 0.5 k/uL (1.0-4.8); Lymphocytes % (A) 10 %; MCH 29.3 pg (25.0-35.0); MCHC 30.5 g/dL (31.0-37.0); MCV 95.9 fL (80.0-100.0); Macrocytosis Slight; Mean Platelet Volume 6.4; Monocytes # (A) 0.2 k/uL (0-1.0); Monocytes % (A) 4 %; Neutrophils # (A) 4.1 k/uL (1.3-7.7); Neutrophils % (A) 85 %; Platelet Count 422 k/uL (150-450); RBC 3.06 m/uL (3.80-5.40); RDW 17.5 % (11.5-15.5); WBC 4.8 k/uL (3.8-10.6)
[2018-08-26 08:28] LABS: ALT 24 U/L (9-52); AST 19 U/L (14-36); Albumin 3.1 g/dL (3.5-5.0); Alkaline Phosphatase 50 U/L (38-126); Anion Gap 2 mmol/L; Blood Urea Nitrogen 24 mg/dL (7-17); Calcium 9.5 mg/dL (8.4-10.2); Carbon Dioxide 28 mmol/L (22-30); Chloride 110 mmol/L (98-107); Glucose 142 mg/dL (74-99); Potassium 4.7 mmol/L (3.5-5.1); Sodium 140 mmol/L (137-145); Total Bilirubin 0.6 mg/dL (0.2-1.3); Total Protein 5.1 g/dL (6.3-8.2)
[2018-08-26 11:55] LABS: Glucose,Whole Blood 129 mg/dL (75-99)
--- NOTE | 2018-08-26 15:23 | PN ---
PROGRESS NOTE SUBJECTIVE: A 68-year-old white female who continues to have treatments for B-cell lymphoma. On day four of treatment her vital signs show her pulse rate has been in the 45 to 50. No evidence of conductive loss just sinus bradycardia. Temperature 98, pulse as mentioned above. Her asthma stable. Lungs are clear. GI soft, O2 96 on room air. ASSESSMENT: Asthma, basal lymphoma, hypercholesterolemia. Continue current treatment, follow up in the next 24-48 hours. Patient continues to improve. MMODL / IJN: [id number] /
[2018-08-26 16:51] LABS: Glucose,Whole Blood 206 mg/dL (75-99)
[2018-08-26] MEDS: FAMOTIDINE 20 MG/2 ML VIAL IV SCH (19:58)
[2018-08-26] MEDS: MONTELUKAST 10 MG TAB PO SCH (19:59)
[2018-08-26] MEDS: ONDANSETRON 16 MG in SODIUM CHLORIDE 0.9% 50 ML IVPB SCH (19:59)
[2018-08-26 20:10] LABS: Glucose,Whole Blood 156 mg/dL (75-99)
[2018-08-26] MEDS: ATORVASTATIN 40 MG TAB PO SCH (20:38)
[2018-08-26] MEDS: MECLIZINE 25 MG TAB PO PRN (20:41)
[2018-08-26] MEDS ORDERED: CYCLOPHOSPHAMIDE IV ONE (21:00)
[2018-08-26] MEDS ORDERED: SODIUM CHLORIDE 0.9% IV ONE (21:00)
--- NOTE | 2018-08-26 21:59 | P.PN ---
Subjective Progress Note Date: 08/26/18 Principal diagnosis: Lymphoma - Timed chemotherapy admission Patient has been experiencing Bradycardia during chemotherapy infusions, cardiology is following, they are asymptomatic. She denies any nausea, vomiting , diarrhea, or dizziness Objective - Vital Signs Vital signs: Vital Signs Temp 97.6 F 08/26/18 16:00 Pulse 46 L 08/26/18 16:00 Resp 17 08/26/18 16:00 BP 138/99 08/26/18 16:00 Pulse Ox 97 08/26/18 16:00 Intake & Output 08/26/18 08/26/18 08/27/18 06:59 18:59 06:59 Intake Total 1902 1097.6 1480 Balance 1902 1097.6 1480 Weight 120.5 kg Intake: Intake, IV Titration 1482 1097.6 400 Amount DOXOrubicin HCL 22 mg In 88 95.2 Sodium Chloride 0.9% 250 ml @ 10.875 mls/hr IV Q24H [facility] Rx#:[id number] Etoposide 110 mg In 170 184 Sodium Chloride 0.9% 500 ml 500 ml @ 21.063 mls/hr IV Q24H [facility] Rx#: [id number] Ondansetron 16 mg In 100 Sodium Chloride 0.9% 50 ml @ 100 mls/hr IVPB Q24H [facility] Rx#:[id number] Sodium Chloride 0.9% 1, 1100 800 400 000 ml @ 100 mls/hr IV . Q10H [facility] Rx#:[id number] vinCRIStine SULFATE 0.9 24 18.4 mg In Sodium Chloride 0.9 % 50 ml @ 2.121 mls/hr IV Q24H [facility] Rx#:[id number] Oral 420 1080 Other: # Voids 3 1 # Bowel Movements 1 - Exam - Constitutional General appearance: Present: cooperative, morbidly obese, no acute distress - EENT Eyes: Present: anicteric sclerae, edentulous, EOMI ENT: Present: hearing grossly normal, normal oropharynx - Neck Neck: Present: normal ROM. Absent: lymphadenopathy, other, rigidity, stridor - Respiratory Respiratory: bilateral: CTA - Cardiovascular Rhythm: regular Heart sounds: normal: S1, S2 Abnormal Heart Sounds: Present: systolic murmur. Absent: diastolic murmur, rub , S3 Gallop, S4 Gallop, click, other - Gastrointestinal General gastrointestinal: Present: normal bowel sounds, soft. Absent: absent bowel sounds, decreased bowel sounds, distended, hepatomegaly, hyperactive bowel sounds, organomegaly, rigid, scaphoid, splenomegaly, tenderness, umbilical hernia, ventral hernia - Integumentary Integumentary: Present: normal turgor, pale - Neurologic Neurologic: Present: CNII-XII intact - Musculoskeletal Musculoskeletal: Present: strength equal bilaterally - Psychiatric Psychiatric: Present: A&O x's 3, appropriate affect, intact judgment & insight - Labs - Labs CBC & Chem 7: 08/26/18 07:23 08/26/18 07:23 Labs: Abnormal Lab Results - Last 24 Hours (Table) 08/26/18 08/26/18 08/26/18 Range/Units 07:23 07:23 07:41 RBC 3.06 L (3.80-5.40) m/uL Hgb 9.0 L (11.4-16.0) gm/dL Hct 29.3 L (34.0-46.0) % MCHC 30.5 L (31.0-37.0) g/dL RDW 17.5 H (11.5-15.5) % Lymphocytes # 0.5 L (1.0-4.8) k/uL Chloride 110 H (98-107) mmol/L BUN 24 H (7-17) mg/dL Glucose 142 H (74-99) mg/dL POC Glucose (mg/dL) 140 H (75-99) mg/dL Total Protein 5.1 L (6.3-8.2) g/dL Albumin 3.1 L (3.5-5.0) g/dL 08/26/18 08/26/18 08/26/18 Range/Units 11:54 16:50 20:08 RBC (3.80-5.40) m/uL Hgb (11.4-16.0) gm/dL Hct (34.0-46.0) % MCHC (31.0-37.0) g/dL RDW (11.5-15.5) % Lymphocytes # (1.0-4.8) k/uL Chloride (98-107) mmol/L BUN (7-17) mg/dL Glucose (74-99) mg/dL POC Glucose (mg/dL) 129 H 206 H 156 H (75-99) mg/dL Total Protein (6.3-8.2) g/dL Albumin (3.5-5.0) g/dL Assessment and Plan Plan: Assessment and Plan (1) Diffuse large B-cell lymphoma of extranodal site Narrative/Plan: - Pt continues to tolerate treatment well. Continue day 4 of cycle 2 chemotherapy without adjustment. - Daily labs as ordered. and Reviewed - Continue all supportive care as prescribed. - Daily follow-up. Current Visit: Yes Status: Acute Priority: High Code(s): C83.39 - DIFFUSE LARGE B-CELL LYMPHOMA, EXTRNOD AND SOLID ORGAN SITES SNOMED Code(s): 801340421 (2) Bradyarrhythmia Narrative/Plan: - Cardiology consult and following - Asymptomatic - Will recheck her Echocardiogram after cycle 2 or 3 Current Visit: Yes Status: Acute Priority: High Code(s): I49.8 - OTHER SPECIFIED CARDIAC ARRHYTHMIAS SNOMED Code(s): 621501789 (3) CAD (coronary artery disease) Current Visit: No Status: Acute Code(s): I25.10 - ATHSCL HEART DISEASE OF [place] CORONARY ARTERY W/O ANG PCTRS SNOMED Code(s): 00224275 (4) Chronic pain syndrome Current Visit: No Status: Chronic Priority: Low Code(s): G89.4 - CHRONIC PAIN SYNDROME SNOMED Code(s): 621574680 Plan: GI and DVT prophylaxis DISPO PLan within 24 hours when chemotherapy is completed, plan for follow-up in office for isaac
[2018-08-26 23:01] VITALS: RESP 16
[2018-08-27] MEDS: HYDROcodone/APAP 10-325MG 1 EACH TAB PO PRN ×2 (01:53→07:42)
[2018-08-27 05:07] VITALS: BP 149/80; PULSE 50; TEMP 97.5
[2018-08-27] MEDS: LEVOTHYROXINE 75 MCG TAB PO SCH (05:21)
[2018-08-27 07:08] LABS: Anisocytosis Slight; Basophils % (A) 0 %; Eosinophils % (A) 1 %; HCT 27.8 % (34.0-46.0); HGB 8.8 gm/dL (11.4-16.0); Lymphocytes # (A) 0.5 k/uL (1.0-4.8); Lymphocytes % (A) 13 %; MCHC 31.7 g/dL (31.0-37.0); MCV 94.7 fL (80.0-100.0); Mean Platelet Volume 6.4; Monocytes # (A) 0.1 k/uL (0-1.0); Monocytes % (A) 2 %; Neutrophils # (A) 2.8 k/uL (1.3-7.7); Neutrophils % (A) 83 %; Platelet Count 418 k/uL (150-450); RBC 2.94 m/uL (3.80-5.40); RDW 16.9 % (11.5-15.5); WBC 3.4 k/uL (3.8-10.6)
[2018-08-27 07:09] LABS: Glucose,Whole Blood 157 mg/dL (75-99)
[2018-08-27 07:24] LABS: ALT 28 U/L (9-52); AST 21 U/L (14-36); Albumin 2.9 g/dL (3.5-5.0); Alkaline Phosphatase 46 U/L (38-126); Anion Gap 3 mmol/L; Blood Urea Nitrogen 20 mg/dL (7-17); Calcium 9.3 mg/dL (8.4-10.2); Carbon Dioxide 29 mmol/L (22-30); Chloride 106 mmol/L (98-107); Glucose 146 mg/dL (74-99); Potassium 4.3 mmol/L (3.5-5.1); Sodium 138 mmol/L (137-145); Total Bilirubin 0.6 mg/dL (0.2-1.3); Total Protein 4.9 g/dL (6.3-8.2)
[2018-08-27] MEDS: LISINOPRIL 5 MG TAB PO SCH (07:42)
[2018-08-27] MEDS: PANTOPRAZOLE 40 MG TABLET PO SCH (07:42)
[2018-08-27] MEDS: ACYCLOVIR 200 MG CAP PO SCH (07:42)
[2018-08-27] MEDS: CYANOCOBALAMIN 500 MCG TAB PO SCH (07:43)
[2018-08-27] MEDS: ENOXAPARIN 40 MG/0.4 ML SYRINGE SQ SCH (07:43)
[2018-08-27] MEDS: INSULIN ASPART 100 UNIT/ML 1 ML 10 ML VIAL SQ SCH ×2 (07:43→11:48)
[2018-08-27] MEDS: SALT AND SODA MOUTHWASH 1,000 ML PO SCH ×2 (07:44→11:49)
[2018-08-27] MEDS: SODIUM CHLORIDE 0.9% 1,000 ML IV SCH (07:44)
[2018-08-27] MEDS: GLIMEPIRIDE 1 MG TAB PO SCH (07:45)
[2018-08-27 11:36] LABS: Glucose,Whole Blood 56 mg/dL (75-99)
[2018-08-27 11:36] LABS: Glucose,Whole Blood 60 mg/dL (75-99)
[2018-08-27 11:57] LABS: Glucose,Whole Blood 112 mg/dL (75-99)
== END 2018-08-27 13:02 | disposition home health service (06) | DRG 847 ==
LOC: 3NMEDONC 08:04
PROVIDERS: ADMIT Internal Medicine Hematology & Oncology; ATTEND Internal Medicine Hematology & Oncology
DX: Z51.11 Encounter for antineoplastic chemotherapy (principal); C83.39 Diffuse large B-cell lymphoma, extranodal and solid organ sites; Z68.42 Body mass index [BMI] 45.0-49.9, adult; E66.01 Morbid (severe) obesity due to excess calories; E11.9 Type 2 diabetes mellitus without complications; E03.9 Hypothyroidism, unspecified; D64.9 Anemia, unspecified; J45.909 Unspecified asthma, uncomplicated; I25.10 Atherosclerotic heart disease of native coronary artery without angina pectoris; E78.5 Hyperlipidemia, unspecified; E78.00 Pure hypercholesterolemia, unspecified; M19.90 Unspecified osteoarthritis, unspecified site; I10 Essential (primary) hypertension; G47.30 Sleep apnea, unspecified; G25.81 Restless legs syndrome; G56.02 Carpal tunnel syndrome, left upper limb; H66.92 Otitis media, unspecified, left ear; H91.90 Unspecified hearing loss, unspecified ear; G89.4 Chronic pain syndrome; M25.511 Pain in right shoulder; M54.2 Cervicalgia; M54.9 Dorsalgia, unspecified; I83.90 Asymptomatic varicose veins of unspecified lower extremity; R51 Headache; Z71.3 Dietary counseling and surveillance; Z79.84 Long term (current) use of oral hypoglycemic drugs; Z79.890 Hormone replacement therapy; Z79.899 Other long term (current) drug therapy; Z99.89 Dependence on other enabling machines and devices; Z87.891 Personal history of nicotine dependence; Z90.49 Acquired absence of other specified parts of digestive tract; Z87.19 Personal history of other diseases of the digestive system; Z98.84 Bariatric surgery status; Z92.21 Personal history of antineoplastic chemotherapy; Z86.79 Personal history of other diseases of the circulatory system; Z95.1 Presence of aortocoronary bypass graft; Z96.652 Presence of left artificial knee joint; Z98.51 Tubal ligation status; Z88.1 Allergy status to other antibiotic agents; Z88.8 Allergy status to other drugs, medicaments and biological substances; Z81.1 Family history of alcohol abuse and dependence; Z80.1 Family history of malignant neoplasm of trachea, bronchus and lung
CPT/HCPCS: 80053; 85025

== ENCOUNTER 2018-09-12 07:48 | Inpatient (IN) | payer MEDICARE, OTHER ==
[2018-09-12] MEDS ORDERED: ONDANSETRON 8 MG in SODIUM CHLORIDE 0.9% 50 ML IVPB PRN (08:00)
[2018-09-12] MEDS: SODIUM CHLORIDE 0.9% 1,000 ML IV SCH ×3 (09:14→22:11)
[2018-09-12] MEDS ORDERED: ARTIFICIAL TEARS-HYPROMELLOSE DROPS 15 ML BTL BOTH EYES PRN (09:19)
[2018-09-12] MEDS: predniSONE 10 MG TAB PO SCH ×2 (09:36→20:33)
[2018-09-12] MEDS: predniSONE 50 MG TAB PO SCH ×2 (09:36→20:33)
[2018-09-12 09:44] LABS: Anisocytosis Slight; Basophils % (A) 1 %; Eosinophils # (A) 0.1 k/uL (0-0.7); Eosinophils % (A) 3 %; HGB 9.1 gm/dL (11.4-16.0); Hypochromasia Slight; Lymphocytes # (A) 1.4 k/uL (1.0-4.8); Lymphocytes % (A) 26 %; MCH 30.2 pg (25.0-35.0); MCHC 31.4 g/dL (31.0-37.0); MCV 96.3 fL (80.0-100.0); Macrocytosis Slight; Mean Platelet Volume 7.1; Monocytes # (A) 0.5 k/uL (0-1.0); Monocytes % (A) 9 %; Neutrophils # (A) 3.1 k/uL (1.3-7.7); Neutrophils % (A) 59 %; Platelet Count 404 k/uL (150-450); RBC 3.01 m/uL (3.80-5.40); WBC 5.3 k/uL (3.8-10.6)
[2018-09-12] MEDS: HYDROcodone/APAP 10-325MG 1 EACH TAB PO PRN ×3 (09:50→22:12)
[2018-09-12 09:56] LABS: ALT 26 U/L (9-52); AST 18 U/L (14-36); Albumin 3.2 g/dL (3.5-5.0); Alkaline Phosphatase 80 U/L (38-126); Anion Gap 2 mmol/L; Blood Urea Nitrogen 13 mg/dL (7-17); Calcium 9.4 mg/dL (8.4-10.2); Carbon Dioxide 27 mmol/L (22-30); Chloride 109 mmol/L (98-107); Glucose 85 mg/dL (74-99); Potassium 4.6 mmol/L (3.5-5.1); Sodium 138 mmol/L (137-145); Total Bilirubin 0.5 mg/dL (0.2-1.3); Total Protein 5.5 g/dL (6.3-8.2)
[2018-09-12] MEDS: ONDANSETRON 16 MG in SODIUM CHLORIDE 0.9% 50 ML IVPB SCH (10:25)
[2018-09-12] MEDS: FAMOTIDINE 20 MG/2 ML VIAL IV SCH (10:25)
--- NOTE | 2018-09-12 11:43 | P.HPIM ---
History of Present Illness H&P Date: 09/12/18 Chief Complaint: Admit for cycle #3 CIVI chemo for DLBCL Please see H&P dictated 21 days ago for malig history as it is unchanged Pt admitted for cycle 3 of R-EPOCH. She has tolerated treatment overall well, mild side effects, hematological toxicities mild. She presents today with a left groin nodule, painless, has come on in the last few days, she has had similar "boils" in the past, denies fever or drainage from the site. Mild headache today, associates with the steroids. She has no physical c/o on a 14 point ROS, she is ambulatory, no new or unusual pain Review of Systems 14 point ROS is negative except as stated in HPI Past Medical History Past Medical History: Asthma, Coronary Artery Disease (CAD), Cancer, Diabetes Mellitus, Hearing Disorder / Deafness, Hyperlipidemia, Hypertension, Musculoskeletal Disorder, Osteoarthritis (OA), Skin Disorder, Sleep Apnea/CPAP/ BIPAP, Thyroid Disorder Additional Past Medical History / Comment(s): DLBCL-receiving chemotherapy and had bradycardia, R colectomy d/t mass, ischemic heart disease, NIDDM type II, deaf/chronic otitis media L ear, chronic low back/neck and R shoulder pain, RLS , veritgo at times, L hand numbness tingling which she attributes to L sided carpal tunnel syndrome, varicosities, possible IBS/colitis and chron's per pt in the past, benign colon polyps, RLS, hypothyroid, allergic sinusitis, ASHLEY currently not using device. History of Any Multi-Drug Resistant Organisms: None Reported Past Surgical History: Bariatric Surgery, Bowel Resection, Cholecystectomy, Coronary Bypass/CABG, Heart Catheterization, Hernia Repair, Joint Replacement, Orthopedic Surgery, Tubal Ligation Additional Past Surgical History / Comment(s): KNEE ARTHROSCOPY,CABG x1 vessel ( 1992), LAP BAND AND REMOVAL. GASTRIC BYPASS 2012, UMBILICAL HERNIA REPAIR, KRISTOPHER. SHOULDER SURG, rt shoulder rotator cuff, KRISTOPHER CARPAL TUNNEL, L wrist surgery d/t injury,. KRISTOPHER EAR SURG WITH TUBES, TOTAL LEFT KNEE, RIGHT EAR SURG, RIGHT COLECTOMY (06/16/18) Past Anesthesia/Blood Transfusion Reactions: No Reported Reaction, Motion Sickness Additional Past Anesthesia/Blood Transfusion Reaction / Comment(s): VERTIGO Smoking Status: Former smoker - Past Family History Mother Additional Family Medical History / Comment(s): Pt states her mother never went to the doctor so she does not know of any medical problems. Mother lived to be 87yrs old. Father Additional Family Medical History / Comment(s): Father at the age of 67yrs , pt does not know cause of . He had alcohol abuse Sister(s) Family Medical History: Cancer Additional Family Medical History / Comment(s): LUNG CA Medications and Allergies Home Medications Medication Instructions Recorded Confirmed Type Simvastatin [Zocor] 80 mg PO HS 03/21/14 09/12/18 History Zafirlukast [Accolate] 20 mg PO BID 03/21/14 09/12/18 History Ergocalciferol [Vitamin D2 50,000 unit PO MO 10/09/14 09/12/18 History (FAUSTO)] Levothyroxine Sodium [Synthroid] 150 mcg PO QAM 10/09/14 09/12/18 History Glimepiride [Amaryl] 1 mg PO AC-BRKFST 10/08/15 09/12/18 History rOPINIRole HCL [Requip] 0.5 mg PO HS 08/04/17 09/12/18 History Acyclovir 400 mg PO AC-BID #60 tablet 08/07/18 09/12/18 Rx Meclizine [Antivert] 25 mg PO TID PRN #14 tab 08/07/18 09/12/18 Rx Pantoprazole [Protonix] 40 mg PO AC-BID #60 tablet. 08/07/18 09/12/18 Rx Cyanocobalamin (Vitamin B-12) 1,000 mcg PO DAILY 08/22/18 09/12/18 History [Vitamin B-12] HYDROcodone/APAP 10-325MG [[place] 1 tab PO Q6H PRN 08/22/18 09/12/18 History 10-325] Lisinopril [Zestril] 5 mg PO DAILY 08/22/18 09/12/18 History Artificial Tears-Hypromellose 1 drops BOTH EYES QID PRN bottle 08/26/18 Rx [Artificial Tear Drops] Fluticasone/Salmeterol [Advair 2 puff INHALATION RT-BID 09/12/18 09/12/18 History 250-50 Diskus] Allergies Allergy/AdvReac Type Severity Reaction Status Date / Time allopurinol Allergy Itching Verified 09/12/18 09:08 cephalexin monohydrate Allergy Itching Verified 09/12/18 09:08 [From Keflex] clindamycin Allergy Itching Verified 09/12/18 09:08 NSAIDS (Non-Steroidal AdvReac Unknown STATES NO Verified 09/12/18 09:08 Anti-Inflamma NSAIDS DUE TO GASTRIC BYPASS ciprofloxacin [From Cipro] AdvReac severe Verified 09/12/18 09:08 heartburn doxycycline AdvReac severe Verified 09/12/18 09:08 heartburn Physical Exam Vitals: Vital Signs Temp Pulse Resp BP Pulse Ox 09/12/18 08:00 97.6 F 60 19 172/70 95 Intake and Output 09/11/18 09/12/18 09/12/18 22:59 06:59 14:59 Other: Weight 119 kg - Constitutional General appearance: cooperative, morbidly obese, no acute distress - EENT Eyes: anicteric sclerae, EOMI ENT: hearing grossly normal, normal oropharynx - Neck Neck: no lymphadenopathy - Respiratory Respiratory: bilateral: CTA - Cardiovascular Rhythm: regular Heart sounds: normal: S1, S2 Abnormal Heart Sounds: no systolic murmur, no diastolic murmur, no rub, no S3 Gallop, no S4 Gallop, no click, no other leg Peripheral Edema: bilateral: None - Gastrointestinal General gastrointestinal: no absent bowel sounds, no decreased bowel sounds, no distended, no hepatomegaly, no hyperactive bowel sounds, normal bowel sounds, no organomegaly, no rigid, no scaphoid, soft, no splenomegaly, no tenderness, no umbilical hernia, no ventral hernia - Integumentary elongated 3 cm mass palpable in the left groing, painless, not fixed, skin peeling at the surface Integumentary: normal - Neurologic Neurologic: CNII-XII intact - Musculoskeletal Musculoskeletal: strength equal bilaterally - Psychiatric Psychiatric: A&O x's 3, appropriate affect, intact judgment & insight Results CBC & Chem 7: 09/12/18 09:20 09/12/18 09:20 Labs: Abnormal Lab Results - Last 24 Hours (Table) 09/12/18 09/12/18 Range/Units 09:20 09:20 RBC 3.01 L (3.80-5.40) m/uL Hgb 9.1 L (11.4-16.0) gm/dL Hct 29.0 L (34.0-46.0) % RDW 19.0 H (11.5-15.5) % Chloride 109 H (98-107) mmol/L Total Protein 5.5 L (6.3-8.2) g/dL Albumin 3.2 L (3.5-5.0) g/dL Thrombosis Risk Factor Assmnt - DVT/VTE Prophylaxis DVT/VTE Prophylaxis: Pharmacologic Prophylaxis ordered - Choose All That Apply Any of the Below Risk Factors Present?: Yes Each Factor Represents 1 point: Obesity (BMI >25) Other Risk Factors: Yes Each Risk Factor Represents 2 Points: Age 61-74 years, Malignancy Other congenital or acquired thrombophilia - If yes, enter type in comment: No Thrombosis Risk Factor Assessment Total Risk Factor Score: 5 Thrombosis Risk Factor Assessment Level: High Risk Assessment and Plan (1) Inguinal nodule Narrative/Plan: US ordered to evaluate. F/U in am Current Visit: Yes Status: Acute Priority: High Code(s): R19.09 - OTHER INTRA-ABDOMINAL AND PELVIC SWELLING, MASS AND LUMP SNOMED Code(s): 670873266 (2) Diffuse large B-cell lymphoma of extranodal site Narrative/Plan: Admit for CIVI chemo Supportive meds ordered Labs daily GI/DVT prophylaxis PCP consulted for Medical Mgmt Current Visit: Yes Status: Acute Priority: High Code(s): C83.39 - DIFFUSE LARGE B-CELL LYMPHOMA, EXTRNOD AND SOLID ORGAN SITES SNOMED Code(s): 490062604 (3) Bradyarrhythmia Narrative/Plan: Cont telelmetry monitoring while on chemo Current Visit: No Status: Acute Priority: High Code(s): I49.8 - OTHER SPECIFIED CARDIAC ARRHYTHMIAS SNOMED Code(s): 809207654 (4) Chronic pain syndrome Narrative/Plan: Cont home meds Current Visit: No Status: Chronic Priority: Low Code(s): G89.4 - CHRONIC PAIN SYNDROME SNOMED Code(s): 517997211
[2018-09-12 11:50] LABS: Glucose,Whole Blood 192 mg/dL (75-99)
[2018-09-12] MEDS: SALT AND SODA MOUTHWASH 1,000 ML PO SCH ×3 (12:04→22:10)
[2018-09-12] MEDS: INSULIN ASPART 100 UNIT/ML 1 ML 10 ML VIAL SQ SCH ×3 (12:34→20:34)
[2018-09-12] MEDS ORDERED: diphenhydrAMINE 50 MG/ML 1 ML VIAL IVP ONE (13:00)
[2018-09-12] MEDS ORDERED: ACETAMINOPHEN TAB 325 MG TAB PO ONE (13:00)
[2018-09-12] MEDS ORDERED: methylPREDNISolone SOD SUCCI 125 MG/2 ML VIAL IV ONE (13:00)
--- NOTE | 2018-09-12 13:28 | US ---
EXAMINATION TYPE: US groin LT DATE OF EXAM: 09/12/2018 COMPARISON: NONE CLINICAL HISTORY: lymphoma, possible abscess/boil?. Lymphoma patient with palpable within left groin 3.2cm complex lesion seen that could represent an abnormal lymph node versus superficial abscess. Red ness at palpable area within patient's panis. IMPRESSION: 3.2 cm complex lesion within the right inguinal canal. This may represent a large lymph node. Other etiologies including infectious etiology not excluded. Correlate for soft tissue mass.
--- NOTE | 2018-09-12 13:32 | CONS ---
CONSULTATION CHIEF COMPLAINT: Medical management consult for white female was in the hospital for 4 days for chemotherapy which has been causing bradycardia in the past while in the hospital for beta cell lymphoma. No chest pain shortness of breath. She is complaining of a cyst or lump in her left lower groin area that she wants checked out. PAST MEDICAL HISTORY: Asthma, coronary artery disease, diabetes mellitus, bradycardia with last time of chemotherapy, hypertension, dyslipidemia, osteoarthritis, sleep , hypothyroidism, sleep apnea, type 2 diabetes mellitus, carpal tunnel syndrome, IBS, Crohn's. SURGERY: She has had bariatric surgery, bowel resection, cholecystectomy, CABG surgery, heart catheterization, hernia repair, joint replacement, tubal ligation, gastric bypass in 2013, umbilical hernia repair. Smoking, former smoker. Father alcohol abuse. Sister cancer of the lung. HOME MEDICATIONS: Home medications include: 1. Zocor. 2. Accolate. 3. Vitamin D. 4. Synthroid. Amaryl. 5. Requip. 6. Antivert. 7. Protonix. 8. [place]. 9. Zestril. 10.Advair. ALLERGIES: Allergies are to KEFLEX, ALLOPURINOL, CIPRO, DOXYCYCLINE. PHYSICAL EXAMINATION: VITAL SIGNS: Temp 97.6, pulse 60, respiratory rate 19, blood pressure is 170s over 70, O2 of 99%. CARDIOVASCULAR: S1, S2. LUNGS: Transmitted upper sounds. GI: Soft. HEMATOLOGY: Negative Homans. PELVIC: She has a node that is enlarged in the left groin. PSYCH: Fair mood and affect. NEUROLOGIC: Alert and oriented x3. LABS: Labs show a hemoglobin 9.1, albumin 3.2. ASSESSMENT: 1. Beta cell lymphoma. 2. Obesity. 3. Hypothyroidism. 4. Lymphadenopathy in the left groin. 5. Hypertension. 6. Asthma. 7. Diabetes mellitus. 8. Vertigo. 9. Gastroesophageal reflux disease. Continue on the current treatment. Follow up in the next 24 to 48 hours. Do an ultrasound of the left inguinal node. Resume her home medicines. MMODL / IJN: [id number] /
[2018-09-12] MEDS ORDERED: riTUXimab 800 MG in SODIUM CHLORIDE 0.9% 500 ML 500 ML IV NR (14:00)
[2018-09-12 16:32] LABS: Glucose,Whole Blood 171 mg/dL (75-99)
[2018-09-12] MEDS: VINCRISTINE SULFATE IV SCH (16:34)
[2018-09-12] MEDS: SODIUM CHLORIDE 0.9% IV SCH ×3 (16:34→16:35)
[2018-09-12] MEDS: ETOPOSIDE IV SCH (16:35)
[2018-09-12] MEDS: DOXORUBICIN HCL IV SCH (16:35)
[2018-09-12] MEDS: ACYCLOVIR 200 MG CAP PO SCH (16:51)
[2018-09-12] MEDS: PANTOPRAZOLE 40 MG TABLET PO SCH (16:51)
[2018-09-12] MEDS ORDERED: ACETAMINOPHEN TAB 325 MG TAB PO PRN (18:19)
[2018-09-12] MEDS ORDERED: diphenhydrAMINE 25 MG CAP PO PRN (18:19)
[2018-09-12] MEDS: MECLIZINE 25 MG TAB PO PRN (18:51)
[2018-09-12 20:16] LABS: Glucose,Whole Blood 251 mg/dL (75-99)
[2018-09-12] MEDS: ATORVASTATIN 40 MG TAB PO SCH (20:33)
[2018-09-12] MEDS: MONTELUKAST 10 MG TAB PO SCH (20:34)
[2018-09-12] MEDS: SYMBICORT 80-4.5 MCG INHALER INHALATION SCH (21:12)
[2018-09-13] MEDS: HYDROcodone/APAP 10-325MG 1 EACH TAB PO PRN ×3 (03:58→17:18)
[2018-09-13] MEDS: MECLIZINE 25 MG TAB PO PRN (03:58)
[2018-09-13] MEDS: SODIUM CHLORIDE 0.9% 1,000 ML IV SCH ×3 (05:53→20:19)
[2018-09-13] MEDS: LEVOTHYROXINE 75 MCG TAB PO SCH (05:53)
[2018-09-13 06:54] LABS: Glucose,Whole Blood 196 mg/dL (75-99)
[2018-09-13] MEDS: ACYCLOVIR 200 MG CAP PO SCH ×2 (08:11→17:24)
[2018-09-13] MEDS: PANTOPRAZOLE 40 MG TABLET PO SCH ×2 (08:11→17:24)
[2018-09-13] MEDS: INSULIN ASPART 100 UNIT/ML 1 ML 10 ML VIAL SQ SCH ×4 (08:11→21:14)
[2018-09-13] MEDS: predniSONE 50 MG TAB PO SCH ×2 (08:11→21:13)
[2018-09-13] MEDS: LISINOPRIL 5 MG TAB PO SCH (08:11)
[2018-09-13] MEDS: predniSONE 10 MG TAB PO SCH ×2 (08:11→21:13)
[2018-09-13] MEDS: GLIMEPIRIDE 1 MG TAB PO SCH (08:11)
[2018-09-13] MEDS: SALT AND SODA MOUTHWASH 1,000 ML PO SCH ×4 (08:12→21:15)
[2018-09-13 08:14] LABS: Anisocytosis Slight; Basophils % (A) 0 %; Eosinophils % (A) 0 %; HCT 27.3 % (34.0-46.0); HGB 8.5 gm/dL (11.4-16.0); Hypochromasia Moderate; Lymphocytes # (A) 0.5 k/uL (1.0-4.8); Lymphocytes % (A) 5 %; MCH 30.5 pg (25.0-35.0); MCHC 31.2 g/dL (31.0-37.0); MCV 97.8 fL (80.0-100.0); Macrocytosis Slight; Monocytes # (A) 0.5 k/uL (0-1.0); Monocytes % (A) 6 %; Neutrophils # (A) 7.4 k/uL (1.3-7.7); Neutrophils % (A) 88 %; Platelet Count 413 k/uL (150-450); RBC 2.79 m/uL (3.80-5.40); RDW 18.9 % (11.5-15.5); WBC 8.4 k/uL (3.8-10.6)
[2018-09-13 08:43] LABS: ALT 24 U/L (9-52); AST 14 U/L (14-36); Alkaline Phosphatase 66 U/L (38-126); Anion Gap 3 mmol/L; Blood Urea Nitrogen 14 mg/dL (7-17); Calcium 9.5 mg/dL (8.4-10.2); Carbon Dioxide 27 mmol/L (22-30); Chloride 110 mmol/L (98-107); Glucose 174 mg/dL (74-99); Potassium 4.8 mmol/L (3.5-5.1); Sodium 140 mmol/L (137-145); Total Bilirubin 0.4 mg/dL (0.2-1.3); Total Protein 5.1 g/dL (6.3-8.2)
[2018-09-13] MEDS: SYMBICORT 80-4.5 MCG INHALER INHALATION SCH ×2 (09:11→19:55)
[2018-09-13 11:52] LABS: Glucose,Whole Blood 124 mg/dL (75-99)
[2018-09-13] MEDS: FAMOTIDINE 20 MG/2 ML VIAL IV SCH ×2 (12:52→17:40)
[2018-09-13] MEDS: CYANOCOBALAMIN 500 MCG TAB PO SCH (12:52)
[2018-09-13 15:40] LABS: T4, Free (Free Thyroxine) 1.23 ng/dL (0.78-2.19)
--- NOTE | 2018-09-13 15:42 | P.CRDCN ---
History of Present Illness History of present illness: This is a pleasant 68-year-old female past medical history significant for coronary artery bypass grafting, diabetes mellitus, hypertension , dyslipidemia, B-cell lymphoma, hypothyroidism and asthma. She follows with Dr. Caro in the office. We have been asked to see in consultation secondary to tachycardia. She is currently here admitted to the hospital for her third round of chemotherapy. During the course of her chemotherapy treatment she has been seen frequently by for asymptomatic bradycardia associated with chemotherapy infusions. Therefore on this admission she was placed on the site monitor. This morning while sitting in bed just after receiving her running medications she started feeling her heart racing very rapidly. She states it was a regular but rapid beat. She denies associated chest pain, shortness, dizziness, nausea, vomiting or diaphoresis. Echocardiogram obtained 08/01/2018 reveals preserved left ventricular systolic function with ejection fraction 55-60%. Laboratory data reviewed, WBC 8.4, hemoglobin 8.5, platelets 413, sodium 140, potassium 4.8, creatinine 0.59. She states in the past she has been diagnosed with sleep apnea and had a CPAP at home. However, due to non-use the machine was taken away. She states she was in and out of the hospital so it was not that she was non-compliant just that she was not home. At the time of my exam: CONSTITUTIONAL: Denies fever. Denies chills. EYES: Denies blurred vision. Denies vision changes. Denies eye pain. EARS, NOSE, MOUTH & THROAT: Denies headache. Denies sore throat. Denies ear pain. CARDIOVASCULAR: Denies chest pain. Denies shortness of breath. Denies orthopnea. Denies PND. Denies palpitations. RESPIRATORY: Denies cough. GASTROINTESTINAL: Denies abdominal pain. Denies diarrhea. Denies constipation. Denies nausea. Denies vomiting. MUSCULOSKELETAL: Denies myalgias. INTEGUMENTARY: Denies pruitis. Denies rash. NEUROLOGIC: Denies numbness. Denies tingling. Denies weakness. PSYCHIATRIC: Denies anxiety. Denies depression. ENDOCRINE: Denies fatigue. Denies weight change. Denies polydipsia. Denies polyurina. GENITOURINARY: Denies burning, hematuria or urgency with micturation. HEMATOLOGIC: Denies history of anemia. Denies bleeding. Blood pressure 129/57 heart rate 71 afebrile and maintaining oxygen saturation on room air. GENERAL: This is a 68-year-old female in no apparent distress at the time of my examination. Obese. HEENT: Head is atraumatic, normocephalic. Pupils are equal, round. Sclerae anicteric. Conjunctivae are clear. Mucous membranes of the mouth are moist. Neck is supple. There is no jugular venous distention. No carotid bruit is heard. LUNGS: Clear to auscultation no wheezes, rales or rhonchi. No chest wall tenderness is noted on palpation or with deep breathing. HEART: Regular rate and rhythm without murmurs, rubs or gallops. S1 and S2 heard. ABDOMEN: Soft, nontender. Bowel sounds are heard. No organomegaly noted. EXTREMITIES: No evidence of peripheral edema and no calf tenderness noted. VASCULAR: Radial and dorsalis pedis pulses palpated, no evidence of clubbing. NEUROLOGIC: Patient is awake, alert and oriented x3. ASSESSMENT B-cell lymphoma undergoing chemotherapy Hypothyroidism History of coronary artery disease status post bypass grafting Hypertension Dyslipidemia Suspect sleep apnea Sinus tachycardia PLAN Check TSH. Any abnormality to be addressed by primary care team. Stable from a cardiac perspective. Continue chemotherapy as ordered per oncology team. Follow up with Dr. Caro as previously established in January. Recommend she is evaluated for CPAP machine to be resumed. This has been discussed with Lavell from Case Management and she will contact [facility]. We will continue to follow as needed, thank you kindly for this consultation. Nurse Practitioner note has been reviewed, I agree with a documented findings and plan of care. Patient was seen and examined. Past Medical History Past Medical History: Asthma, Coronary Artery Disease (CAD), Cancer, Diabetes Mellitus, Hearing Disorder / Deafness, Hyperlipidemia, Hypertension, Musculoskeletal Disorder, Osteoarthritis (OA), Skin Disorder, Sleep Apnea/CPAP/ BIPAP, Thyroid Disorder Additional Past Medical History / Comment(s): DLBCL-receiving chemotherapy and had bradycardia, R colectomy d/t mass, ischemic heart disease, NIDDM type II, deaf/chronic otitis media L ear, chronic low back/neck and R shoulder pain, RLS , veritgo at times, L hand numbness tingling which she attributes to L sided carpal tunnel syndrome, varicosities, possible IBS/colitis and chron's per pt in the past, benign colon polyps, RLS, hypothyroid, allergic sinusitis, ASHLEY currently not using device. History of Any Multi-Drug Resistant Organisms: None Reported Past Surgical History: Bariatric Surgery, Bowel Resection, Cholecystectomy, Coronary Bypass/CABG, Heart Catheterization, Hernia Repair, Joint Replacement, Orthopedic Surgery, Tubal Ligation Additional Past Surgical History / Comment(s): KNEE ARTHROSCOPY,CABG x1 vessel ( 1992), LAP BAND AND REMOVAL. GASTRIC BYPASS 2012, UMBILICAL HERNIA REPAIR, KRISTOPHER. SHOULDER SURG, rt shoulder rotator cuff, KRISTOPHER CARPAL TUNNEL, L wrist surgery d/t injury,. KRISTOPHER EAR SURG WITH TUBES, TOTAL LEFT KNEE, RIGHT EAR SURG, RIGHT COLECTOMY (06/16/18) Past Anesthesia/Blood Transfusion Reactions: No Reported Reaction, Motion Sickness Additional Past Anesthesia/Blood Transfusion Reaction / Comment(s): VERTIGO Smoking Status: Former smoker - Past Family History Mother Additional Family Medical History / Comment(s): Pt states her mother never went to the doctor so she does not know of any medical problems. Mother lived to be 87yrs old. Father Additional Family Medical History / Comment(s): Father at the age of 67yrs , pt does not know cause of . He had alcohol abuse Sister(s) Family Medical History: Cancer Additional Family Medical History / Comment(s): LUNG CA Medications and Allergies Home Medications Medication Instructions Recorded Confirmed Type Simvastatin [Zocor] 80 mg PO HS 03/21/14 09/12/18 History Zafirlukast [Accolate] 20 mg PO BID 03/21/14 09/12/18 History Ergocalciferol [Vitamin D2 50,000 unit PO MO 10/09/14 09/12/18 History (DRISDOL)] Levothyroxine Sodium [Synthroid] 150 mcg PO QAM 10/09/14 09/12/18 History Glimepiride [Amaryl] 1 mg PO AC-BRKFST 10/08/15 09/12/18 History rOPINIRole HCL [Requip] 0.5 mg PO HS 08/04/17 09/12/18 History Acyclovir 400 mg PO AC-BID #60 tablet 08/07/18 09/12/18 Rx Meclizine [Antivert] 25 mg PO TID PRN #14 tab 08/07/18 09/12/18 Rx Pantoprazole [Protonix] 40 mg PO AC-BID #60 tablet. 08/07/18 09/12/18 Rx Cyanocobalamin (Vitamin B-12) 1,000 mcg PO DAILY 08/22/18 09/12/18 History [Vitamin B-12] HYDROcodone/APAP 10-325MG [[place] 1 tab PO Q6H PRN 08/22/18 09/12/18 History 10-325] Lisinopril [Zestril] 5 mg PO DAILY 08/22/18 09/12/18 History Artificial Tears-Hypromellose 1 drops BOTH EYES QID PRN bottle 08/26/18 Rx [Artificial Tear Drops] Fluticasone/Salmeterol [Advair 2 puff INHALATION RT-BID 09/12/18 09/12/18 History 250-50 Diskus] Allergies Allergy/AdvReac Type Severity Reaction Status Date / Time allopurinol Allergy Itching Verified 09/12/18 09:08 cephalexin monohydrate Allergy Itching Verified 09/12/18 09:08 [From Keflex] clindamycin Allergy Itching Verified 09/12/18 09:08 NSAIDS (Non-Steroidal AdvReac Unknown STATES NO Verified 09/12/18 09:08 Anti-Inflamma NSAIDS DUE TO GASTRIC BYPASS ciprofloxacin [From Cipro] AdvReac severe Verified 09/12/18 09:08 heartburn doxycycline AdvReac severe Verified 09/12/18 09:08 heartburn Physical Exam Vitals: Vital Signs Temp Pulse Resp BP Pulse Ox 09/13/18 12:00 97.6 F 71 16 129/57 94 L 09/13/18 10:54 97.9 F 77 09/13/18 08:00 97.5 F L 122 H 16 136/67 99 09/13/18 04:00 97.7 F 108 H 17 145/74 95 09/13/18 00:00 97.6 F 78 16 129/72 92 L 09/12/18 20:00 98.1 F 85 16 142/60 94 L 09/12/18 16:00 97.7 F 75 17 140/73 95 Intake and Output 09/12/18 09/13/18 09/13/18 22:59 06:59 14:59 Intake Total 1839.6 410 360 Balance 1839.6 410 360 Intake: Intake, IV Titration 759.6 50 Amount Ondansetron 8 mg In 50 Sodium Chloride 0.9% 50 ml @ 100 mls/hr IVPB BID PRN Rx#:[id number] Sodium Chloride 0.9% 1, 600 000 ml @ 150 mls/hr IV . Q6H40M [facility] Rx#:[id number] riTUXimab 800 mg In 159.6 Sodium Chloride 0.9% 500 ml 500 ml @ Titrate IV . Q0M NR Rx#:[id number] Oral 1080 360 360 Other: # Voids 2 2 Weight 120 kg Results 09/13/18 07:35 09/13/18 07:35 Cardiac Enzymes 09/13/18 Range/Units 07:35 AST 14 (14-36) U/L CBC 09/13/18 Range/Units 07:35 WBC 8.4 (3.8-10.6) k/uL RBC 2.79 L (3.80-5.40) m/uL Hgb 8.5 L (11.4-16.0) gm/dL Hct 27.3 L (34.0-46.0) % Plt Count 413 (150-450) k/uL Comprehensive Metabolic Panel 09/13/18 Range/Units 07:35 Sodium 140 (137-145) mmol/L Potassium 4.8 (3.5-5.1) mmol/L Chloride 110 H (98-107) mmol/L Carbon Dioxide 27 (22-30) mmol/L BUN 14 (7-17) mg/dL Creatinine 0.59 (0.52-1.04) mg/dL Glucose 174 H (74-99) mg/dL Calcium 9.5 (8.4-10.2) mg/dL AST 14 (14-36) U/L ALT 24 (9-52) U/L Alkaline Phosphatase 66 (38-126) U/L Total Protein 5.1 L (6.3-8.2) g/dL Albumin 3.0 L (3.5-5.0) g/dL Current Medications Generic Name Dose Route Start Last Admin Trade Name Freq PRN Reason Stop Dose Admin Acetaminophen 325 mg 09/12/18 18:19 Tylenol Tab PO HS PRN Mild Pain Hydrocodone Bitart/Acetaminophen 1 each 09/12/18 09:19 09/13/18 11:13 [place] 10 PO 1 each Q6H PRN Administration Pain Acyclovir 400 mg 09/12/18 17:30 09/13/18 08:11 Zovirax PO 400 mg AC-BID JOVANNY Administration Artificial Tears 1 drops 09/12/18 09:19 Artificial Tear Drops BOTH EYES QID PRN Dry Eye(s) Atorvastatin Calcium 40 mg 09/12/18 21:00 09/12/18 20:33 Lipitor PO 40 mg HS JOVANNY Administration Budesonide/Formoterol Fumarate 2 puff 09/12/18 20:00 09/13/18 09:11 Symbicort 80-4.5 Mcg Inhaler INHALATION 2 puff RT-BID JOVANNY Administration Cyanocobalamin 1,000 mcg 09/13/18 12:00 09/13/18 12:52 Vitamin B-12 PO 1,000 mcg DAILY@1200 JOVANNY Administration Diphenhydramine HCl 50 mg 09/12/18 18:19 Benadryl PO HS PRN Insomnia Famotidine 20 mg 09/12/18 13:00 09/12/18 10:25 Pepcid IV 09/16/18 13:01 20 mg Q24H JOVANNY Administration Glimepiride 1 mg 09/13/18 07:30 09/13/18 08:11 Amaryl PO 1 mg AC-BRKFST JOVANNY Administration Sodium Chloride 1,000 mls @ 150 mls/hr 09/12/18 08:00 09/13/18 12:53 Saline 0.9% IV 150 mls/hr .Q6H40M JOVANNY Administration Ondansetron HCl 16 mg/ Sodium 58 mls @ 100 mls/hr 09/12/18 13:00 09/12/18 10: 25 Chloride IVPB 09/16/18 13:01 100 mls/hr Q24H JOVANNY Administration Ondansetron HCl 8 mg/ Sodium 54 mls @ 100 mls/hr 09/12/18 08:00 Chloride IVPB BID PRN Nausea Etoposide 110 mg/ Sodium 505.5 mls @ 21.063 mls/hr 09/12/18 18:00 09/12/18 16 :35 Chloride IV 09/16/18 17:59 21.063 mls/hr Q24H JOVANNY Administration Doxorubicin HCl 22 mg/ Sodium 261 mls @ 10.875 mls/hr 09/12/18 18:00 16:35 Chloride IV 09/16/18 17:59 10.875 mls/hr Q24H JOVANNY Administration Vincristine Sulfate 0.9 mg/ 50.9 mls @ 2.121 mls/hr 09/12/18 18:00 09/12/18 16:34 Sodium Chloride IV 09/16/18 17:59 2.121 mls/hr Q24H JOVANNY Administration Cyclophosphamide 1,640 mg/ 582 mls @ 1,164 mls/hr 09/16/18 21:00 Sodium Chloride IV 09/16/18 21:29 ONCE ONE Insulin Aspart 0 unit 09/12/18 12:30 09/13/18 12:47 Novolog SQ Not Given ACHS JOVANNY Protocol Levothyroxine Sodium 150 mcg 09/13/18 06:30 09/13/18 05:53 Synthroid PO 150 mcg QAM@0630 JOVANNY Administration Lisinopril 5 mg 09/13/18 09:00 09/13/18 08:11 Zestril PO 5 mg DAILY JOVANNY Administration Meclizine HCl 25 mg 09/12/18 09:19 09/13/18 03:58 Antivert PO 25 mg TID PRN Administration Vertigo Montelukast Sodium 10 mg 09/12/18 21:00 09/12/18 20:34 Singulair PO 10 mg HS JOVANNY Administration Pantoprazole Sodium 40 mg 09/12/18 17:30 09/13/18 08:11 Protonix PO 40 mg AC-BID JOVANNY Administration Prednisone 100 mg 09/12/18 09:00 09/13/18 08:11 PO 09/16/18 21:01 100 mg BID JOVANNY Administration Prednisone 30 mg 09/12/18 09:00 09/13/18 08:11 PO 09/16/18 21:01 30 mg BID JOVANNY Administration Ropinirole HCl 0.5 mg 09/12/18 21:00 09/12/18 20:37 Requip PO 0.5 mg HS JOVANNY Administration Sodium Bicarbonate 5 ml 09/12/18 13:00 09/13/18 12:54 PO 5 ml QID JOVANNY Administration Intake and Output 09/12/18 09/13/18 09/13/18 22:59 06:59 14:59 Intake Total 1839.6 410 360 Balance 1839.6 410 360 Intake: Intake, IV Titration 759.6 50 Amount Ondansetron 8 mg In 50 Sodium Chloride 0.9% 50 ml @ 100 mls/hr IVPB BID PRN Rx#:[id number] Sodium Chloride 0.9% 1, 600 000 ml @ 150 mls/hr IV . Q6H40M [facility] Rx#:[id number] riTUXimab 800 mg In 159.6 Sodium Chloride 0.9% 500 ml 500 ml @ Titrate IV . Q0M NR Rx#:[id number] Oral 1080 360 360 Other: # Voids 2 2 Weight 120 kg 09/13/18 07:35 09/13/18 07:35
--- NOTE | 2018-09-13 16:42 | P.PN ---
Subjective Progress Note Date: 09/13/18 Principal diagnosis: diffuse large B-cell lymphoma, admit continuous IV infusion chemotherapy Patient seen today in follow-up. Overnight she did have episodes of tachycardia and bradycardia. Dr. Santiago has consulted cardiology to evaluate patient, possible pacemaker? Pt has 3 more cycles of treatment to complete. When it comes to treatment though, patient is tolerating overall well. Mild to moderate hematological toxicities, some dry mouth, occasional headaches, no vomiting, difficulty in breathing, dysuria, hematuria, diarrhea, constipation, bleeding, swelling, rashes or pain. Patient's left groin ultrasound described possible lymph node versus soft tissue mass versus infection. Patient denies any increase in pain in the area or drainage. Objective - Vital Signs Vital signs: Vital Signs Temp 97.6 F 09/13/18 12:00 Pulse 71 09/13/18 12:00 Resp 16 09/13/18 12:00 BP 129/57 09/13/18 12:00 Pulse Ox 94 L 09/13/18 12:00 Intake & Output 09/12/18 09/13/18 09/13/18 18:59 06:59 18:59 Intake Total 1713.8 2090 360 Balance 1713.8 2090 360 Weight 119 kg 120 kg Intake: Intake, IV Titration 1473.8 650 Amount Ondansetron 16 mg In 50 Sodium Chloride 0.9% 50 ml @ 100 mls/hr IVPB Q24H [facility] Rx#:[id number] Ondansetron 8 mg In 50 Sodium Chloride 0.9% 50 ml @ 100 mls/hr IVPB BID PRN Rx#:[id number] Sodium Chloride 0.9% 1, 900 600 000 ml @ 150 mls/hr IV . Q6H40M [facility] Rx#:[id number] riTUXimab 800 mg In 523.8 Sodium Chloride 0.9% 500 ml 500 ml @ Titrate IV . Q0M NR Rx#:[id number] Oral 240 1440 360 Other: # Voids 3 2 - Constitutional General appearance: Present: morbidly obese, no acute distress - EENT EENT Comment(s): dry mouth, no ulcerations Eyes: Present: anicteric sclerae, edentulous, EOMI ENT: Present: normal oropharynx - Respiratory Respiratory: bilateral: CTA - Cardiovascular Rhythm: regular Heart sounds: normal: S1, S2 Abnormal Heart Sounds: Absent: systolic murmur, diastolic murmur, rub, S3 Gallop , S4 Gallop, click, other - Peripheral edema leg Peripheral Edema: bilateral: None - Gastrointestinal General gastrointestinal: Present: normal bowel sounds, soft - Integumentary Integumentary Comment(s): Left groin 1-1/2-2 cm palpable mass, painless, no drainage, no other palpable masses in the area - Neurologic Neurologic: Present: CNII-XII intact - Musculoskeletal Musculoskeletal: Present: strength equal bilaterally - Psychiatric Psychiatric: Present: A&O x's 3, appropriate affect, intact judgment & insight - Labs CBC & Chem 7: 09/13/18 07:35 09/13/18 07:35 Labs: Abnormal Lab Results - Last 24 Hours (Table) 09/12/18 09/12/18 09/13/18 Range/Units 16:30 19:56 06:53 RBC (3.80-5.40) m/uL Hgb (11.4-16.0) gm/dL Hct (34.0-46.0) % RDW (11.5-15.5) % Lymphocytes # (1.0-4.8) k/uL Chloride (98-107) mmol/L Glucose (74-99) mg/dL POC Glucose (mg/dL) 171 H 251 H 196 H (75-99) mg/dL Total Protein (6.3-8.2) g/dL Albumin (3.5-5.0) g/dL TSH (0.465-4.680) mIU/L 09/13/18 09/13/18 09/13/18 Range/Units 07:35 07:35 07:35 RBC 2.79 L (3.80-5.40) m/uL Hgb 8.5 L (11.4-16.0) gm/dL Hct 27.3 L (34.0-46.0) % RDW 18.9 H (11.5-15.5) % Lymphocytes # 0.5 L (1.0-4.8) k/uL Chloride 110 H (98-107) mmol/L Glucose 174 H (74-99) mg/dL POC Glucose (mg/dL) (75-99) mg/dL Total Protein 5.1 L (6.3-8.2) g/dL Albumin 3.0 L (3.5-5.0) g/dL TSH 0.272 L (0.465-4.680) mIU/L 09/13/18 Range/Units 11:51 RBC (3.80-5.40) m/uL Hgb (11.4-16.0) gm/dL Hct (34.0-46.0) % RDW (11.5-15.5) % Lymphocytes # (1.0-4.8) k/uL Chloride (98-107) mmol/L Glucose (74-99) mg/dL POC Glucose (mg/dL) 124 H (75-99) mg/dL Total Protein (6.3-8.2) g/dL Albumin (3.5-5.0) g/dL TSH (0.465-4.680) mIU/L - Imaging and Cardiology left inguinal ultrasound report reviewed Assessment and Plan (1) Inguinal nodule Narrative/Plan: Discussed results with patient. Left inguinal abnormality is described as possibly lymph node, soft tissue mass or infection. Have consultation surgery to evaluate the area with possible excision or I&D. Patient is on chemotherapy , needs 3 more cycles. Need to reduce the risk of a potential infection is much as possible. This is a new finding. If this is a lymph node is needs to be excised to re-evaluated case and treatment. Will await Surgical input Current Visit: Yes Status: Acute Priority: High Code(s): R19.09 - OTHER INTRA-ABDOMINAL AND PELVIC SWELLING, MASS AND LUMP SNOMED Code(s): 548229720 (2) Diffuse large B-cell lymphoma of extranodal site Narrative/Plan: Cont CIVI chemo without adjustment Supportive meds ordered Labs daily GI/DVT prophylaxis PCP consulted for Medical Mgmt Cardiology for arrhythmia Surgery for Left inguinal mass Current Visit: Yes Status: Acute Priority: High Code(s): C83.39 - DIFFUSE LARGE B-CELL LYMPHOMA, EXTRNOD AND SOLID ORGAN SITES SNOMED Code(s): 168947191 (3) Bradyarrhythmia Current Visit: No Status: Acute Priority: High Code(s): I49.8 - OTHER SPECIFIED CARDIAC ARRHYTHMIAS SNOMED Code(s): 427936126 (4) Chronic pain syndrome Narrative/Plan: Cont home meds Current Visit: No Status: Chronic Priority: Low Code(s): G89.4 - CHRONIC PAIN SYNDROME SNOMED Code(s): 933782412 (5) Antineoplastic chemotherapy induced anemia Narrative/Plan: Mild, expected, no acute intervention, daily CBC Current Visit: Yes Status: Acute Priority: Medium Code(s): D64.81 - ANEMIA DUE TO ANTINEOPLASTIC CHEMOTHERAPY; T45.1X5A - ADVERSE EFFECT OF ANTINEOPLASTIC AND IMMUNOSUP DRUGS, INIT SNOMED Code(s): 178065060
[2018-09-13 16:51] LABS: Glucose,Whole Blood 180 mg/dL (75-99)
[2018-09-13] MEDS: ONDANSETRON 16 MG in SODIUM CHLORIDE 0.9% 50 ML IVPB SCH (17:39)
[2018-09-13] MEDS: SODIUM CHLORIDE 0.9% IV SCH ×3 (18:13→18:15)
[2018-09-13] MEDS: DOXORUBICIN HCL IV SCH (18:13)
[2018-09-13] MEDS: VINCRISTINE SULFATE IV SCH (18:14)
[2018-09-13] MEDS: ETOPOSIDE IV SCH (18:15)
[2018-09-13 20:42] LABS: Glucose,Whole Blood 125 mg/dL (75-99)
[2018-09-13] MEDS: ATORVASTATIN 40 MG TAB PO SCH (21:13)
[2018-09-13] MEDS: MONTELUKAST 10 MG TAB PO SCH (21:13)
[2018-09-14] MEDS: HYDROcodone/APAP 10-325MG 1 EACH TAB PO PRN ×4 (00:04→18:59)
[2018-09-14] MEDS: SODIUM CHLORIDE 0.9% 1,000 ML IV SCH ×4 (04:36→22:59)
--- NOTE | 2018-09-14 05:27 | PN ---
PROGRESS NOTE SUBJECTIVE: This is a white female with beta cell lymphoma treatment. The patient has a groin ultrasound due to a lump in the left lower quadrant. This shows a 3.2 cm complex lesion within the right inguinal canal which may represent a large lymph node, possible infectious etiology or soft tissue mass. Cardiology saw the patient for hypertension, hypotension today. Blood pressure and pulse went high and then low. 1. B-cell lymphoma. 2. Hypothyroidism. 3. Coronary artery bypass grafting. 4. Coronary artery disease. 5. Hypertension. 6. Dyslipidemia. 7. Sleep apnea. 8. Sinus tachycardia. Checked TSH, which has been normal in the past. Continue chemotherapy. Follow up with Dr. Caro. The patient is stable from medical standpoint. At this time, await for Oncology review of the complex mass in the inguinal canal. MMODL / IJN: [id number] /
[2018-09-14] MEDS: LEVOTHYROXINE 75 MCG TAB PO SCH (06:11)
[2018-09-14 06:53] LABS: Glucose,Whole Blood 204 mg/dL (75-99)
[2018-09-14 08:11] LABS: Anisocytosis Slight; Basophils % (A) 0 %; Eosinophils % (A) 0 %; HCT 27.9 % (34.0-46.0); HGB 8.7 gm/dL (11.4-16.0); Hypochromasia Moderate; Lymphocytes # (A) 0.4 k/uL (1.0-4.8); Lymphocytes % (A) 5 %; MCH 30.9 pg (25.0-35.0); MCHC 31.3 g/dL (31.0-37.0); MCV 98.6 fL (80.0-100.0); Macrocytosis Moderate; Mean Platelet Volume 6.9; Monocytes # (A) 0.3 k/uL (0-1.0); Monocytes % (A) 4 %; Neutrophils # (A) 6.6 k/uL (1.3-7.7); Neutrophils % (A) 90 %; Platelet Count 450 k/uL (150-450); RBC 2.83 m/uL (3.80-5.40); RDW 19.4 % (11.5-15.5); WBC 7.3 k/uL (3.8-10.6)
[2018-09-14 08:25] LABS: ALT 24 U/L (9-52); AST 15 U/L (14-36); Albumin 2.9 g/dL (3.5-5.0); Alkaline Phosphatase 56 U/L (38-126); Anion Gap 1 mmol/L; Blood Urea Nitrogen 17 mg/dL (7-17); Calcium 9.5 mg/dL (8.4-10.2); Carbon Dioxide 26 mmol/L (22-30); Chloride 114 mmol/L (98-107); Glucose 181 mg/dL (74-99); Potassium 4.8 mmol/L (3.5-5.1); Sodium 141 mmol/L (137-145); Total Bilirubin 0.5 mg/dL (0.2-1.3)
[2018-09-14] MEDS: ACYCLOVIR 200 MG CAP PO SCH ×2 (08:54→17:42)
[2018-09-14] MEDS: PANTOPRAZOLE 40 MG TABLET PO SCH ×2 (08:54→17:37)
[2018-09-14] MEDS: LISINOPRIL 5 MG TAB PO SCH (08:54)
[2018-09-14] MEDS: predniSONE 50 MG TAB PO SCH ×2 (08:54→20:34)
[2018-09-14] MEDS: predniSONE 10 MG TAB PO SCH ×2 (08:54→20:33)
[2018-09-14] MEDS: CYANOCOBALAMIN 500 MCG TAB PO SCH (08:54)
[2018-09-14] MEDS: INSULIN ASPART 100 UNIT/ML 1 ML 10 ML VIAL SQ SCH ×4 (08:55→20:32)
[2018-09-14] MEDS: SALT AND SODA MOUTHWASH 1,000 ML PO SCH ×4 (08:58→20:34)
[2018-09-14] MEDS: GLIMEPIRIDE 1 MG TAB PO SCH (09:14)
[2018-09-14] MEDS: SYMBICORT 80-4.5 MCG INHALER INHALATION SCH ×2 (09:46→13:05)
[2018-09-14 11:33] LABS: Glucose,Whole Blood 144 mg/dL (75-99)
--- NOTE | 2018-09-14 11:43 | P.CONS ---
History of Present Illness - Reason for Consult Consult date: 09/14/18 - Chief Complaint Swelling left groin - History of Present Illness 68-year-old female with a known history of diffuse large B cell lymphoma presents for her third cycle of chemotherapy or R-EPOCH which she has been tolerating quite well. Today she relates to no acute difficulties except she has fatigue and malaise that of an ongoing since she has been diagnosed. She does relate that she's had some difficulties with her skin with the subcutaneous lesions that develop. Occasionally do drain. She relates to no current difficulties just fevers chills rigors or sweats. The left groin is developed an area of swelling that is of concern. Because of this consultation was requested. This pleasant woman relates that she is not feeling poorly at this point in time. Review of Systems Patient complains of some mild fatigue and malaise denies fevers or chills HEENT:Denies headache or acute visual change. Denies sinus or mouth discomforts. Denies neck stiffness or pain. Denies significant oral cavity pain. Denies difficulty on swallowing. No change of alopecia Lungs: Denies significant shortness of breath, cough, sputum production, or hemoptysis. Cardiovascular: Denies significant shortness of breath, chest pain, chest wall pain, orthopnea, Poor physical conditioning, easily becomes short of breath with activities but this has not significantly worsened Gastrointestinal:Denies nausea, vomiting, diarrhea, constipation, hematemesis, melena, hematochezia. No no significant change of bowel habit noticed. Musculoskeletal: denies significant myalgias or arthralgias. No new joint swelling. Denies new back pain. Skin: As per the HPI is difficulty with small subcutaneous lesions that are painless but sometimes drain Neuro: Denies headache or visual change. Denies any new onset weakness or difficulty with ambulation. Denies falls or seizures. Psychiatric:Denies anxiety or depression. Endocrine: Significant fatigue and malaise Past Medical History Past Medical History: Asthma, Coronary Artery Disease (CAD), Cancer, Diabetes Mellitus, Hearing Disorder / Deafness, Hyperlipidemia, Hypertension, Musculoskeletal Disorder, Osteoarthritis (OA), Skin Disorder, Sleep Apnea/CPAP/ BIPAP, Thyroid Disorder Additional Past Medical History / Comment(s): DLBCL-receiving chemotherapy and had bradycardia, R colectomy d/t mass, ischemic heart disease, NIDDM type II, deaf/chronic otitis media L ear, chronic low back/neck and R shoulder pain, RLS , veritgo at times, L hand numbness tingling which she attributes to L sided carpal tunnel syndrome, varicosities, possible IBS/colitis and chron's per pt in the past, benign colon polyps, RLS, hypothyroid, allergic sinusitis, ASHLEY currently not using device. History of Any Multi-Drug Resistant Organisms: None Reported Past Surgical History: Bariatric Surgery, Bowel Resection, Cholecystectomy, Coronary Bypass/CABG, Heart Catheterization, Hernia Repair, Joint Replacement, Orthopedic Surgery, Tubal Ligation Additional Past Surgical History / Comment(s): KNEE ARTHROSCOPY,CABG x1 vessel ( 1992), LAP BAND AND REMOVAL. GASTRIC BYPASS 2012, UMBILICAL HERNIA REPAIR, KRISTOPHER. SHOULDER SURG, rt shoulder rotator cuff, KRISTOPHER CARPAL TUNNEL, L wrist surgery d/t injury,. KRISTOPHER EAR SURG WITH TUBES, TOTAL LEFT KNEE, RIGHT EAR SURG, RIGHT COLECTOMY (06/16/18) Past Anesthesia/Blood Transfusion Reactions: No Reported Reaction, Motion Sickness Additional Past Anesthesia/Blood Transfusion Reaction / Comm: VERTIGO Additional Psychological History / Comment(s): Single and lives in the family home with daughter, son, brother and grandchild. 2 pet dogs in the home. No service. No international travel. Does not work outside of the home. No current tobacco or alcohol use, stopped smoking in 1992 Smoking Status: Former smoker - Past Family History Mother Additional Family Medical History / Comment(s): Pt states her mother never went to the doctor so she does not know of any medical problems. Mother lived to be 87yrs old. Father Additional Family Medical History / Comment(s): Father at the age of 67yrs , pt does not know cause of . He had alcohol abuse Sister(s) Family Medical History: Cancer Additional Family Medical History / Comment(s): LUNG CA Medications and Allergies Home Medications and Allergies Comment(s): Current Medications Acetaminophen (Tylenol Tab) 325 mg PO HS PRN PRN Reason: Mild Pain Hydrocodone Bitart/Acetaminophen ([place] 10) 1 each PO Q6H PRN PRN Reason: Pain Last Admin: 09/14/18 06:11 Dose: 1 each Acyclovir (Zovirax) 400 mg PO AC-BID [facility] Last Admin: 09/14/18 08:54 Dose: 400 mg Artificial Tears (Artificial Tear Drops) 1 drops BOTH EYES QID PRN PRN Reason: Dry Eye(s) Atorvastatin Calcium (Lipitor) 40 mg PO HS [facility] Last Admin: 09/13/18 21:13 Dose: 40 mg Budesonide/Formoterol Fumarate (Symbicort 80-4.5 Mcg Inhaler) 2 puff INHALATION RT-BID [facility] Last Admin: 09/14/18 09:46 Dose: Not Given Cyanocobalamin (Vitamin B-12) 1,000 mcg PO DAILY@1200 [facility] Last Admin: 09/14/18 08:54 Dose: 1,000 mcg Diphenhydramine HCl (Benadryl) 50 mg PO HS PRN PRN Reason: Insomnia Famotidine (Pepcid) 20 mg IV Q24H [facility] Stop: 09/16/18 13:01 Last Admin: 09/13/18 17:40 Dose: 20 mg Glimepiride (Amaryl) 1 mg PO AC-BRKFST [facility] Last Admin: 09/14/18 09:14 Dose: 1 mg Sodium Chloride (Saline 0.9%) 1,000 mls @ 150 mls/hr IV .Q6H40M [facility] Last Admin: 09/14/18 09:27 Dose: 150 mls/hr Ondansetron HCl 16 mg/ Sodium (Chloride) 58 mls @ 100 mls/hr IVPB Q24H [facility] Stop: 09/16/18 13:01 Last Admin: 09/13/18 17:39 Dose: 100 mls/hr Ondansetron HCl 8 mg/ Sodium (Chloride) 54 mls @ 100 mls/hr IVPB BID PRN PRN Reason: Nausea Etoposide 110 mg/ Sodium (Chloride) 505.5 mls @ 21.063 mls/hr IV Q24H [facility] Stop: 09/16/18 17:59 Last Admin: 09/13/18 18:15 Dose: 21.063 mls/hr Doxorubicin HCl 22 mg/ Sodium (Chloride) 261 mls @ 10.875 mls/hr IV Q24H [facility] Stop: 09/16/18 17:59 Last Admin: 09/13/18 18:13 Dose: 10.875 mls/hr Vincristine Sulfate 0.9 mg/ (Sodium Chloride) 50.9 mls @ 2.121 mls/hr IV Q24H [facility] Stop: 09/16/18 17:59 Last Admin: 09/13/18 18:14 Dose: 2.121 mls/hr Cyclophosphamide 1,640 mg/ (Sodium Chloride) 582 mls @ 1,164 mls/hr IV ONCE ONE Stop: 09/16/18 21:29 Insulin Aspart (Novolog) 0 unit SQ ACHS [facility]; Protocol Last Admin: 09/14/18 08:55 Dose: 3 unit Levothyroxine Sodium (Synthroid) 150 mcg PO QAM@0630 [facility] Last Admin: 09/14/18 06:11 Dose: 150 mcg Lisinopril (Zestril) 5 mg PO DAILY [facility] Last Admin: 09/14/18 08:54 Dose: 5 mg Meclizine HCl (Antivert) 25 mg PO TID PRN PRN Reason: Vertigo Last Admin: 09/13/18 03:58 Dose: 25 mg Montelukast Sodium (Singulair) 10 mg PO [facility] Last Admin: 09/13/18 21:13 Dose: 10 mg Pantoprazole Sodium (Protonix) 40 mg PO AC-BID [facility] Last Admin: 09/14/18 08:54 Dose: 40 mg Prednisone () 100 mg PO BID [facility] Stop: 09/16/18 21:01 Last Admin: 09/14/18 08:54 Dose: 100 mg Prednisone () 30 mg PO BID [facility] Stop: 09/16/18 21:01 Last Admin: 09/14/18 08:54 Dose: 30 mg Ropinirole HCl (Requip) 0.5 mg PO [facility] Last Admin: 09/13/18 21:14 Dose: 0.5 mg Sodium Bicarbonate () 5 ml PO QID [facility] Last Admin: 09/14/18 08:58 Dose: 5 ml Home Medications Medication Instructions Recorded Confirmed Type Simvastatin [Zocor] 80 mg PO HS 03/21/14 09/12/18 History Zafirlukast [Accolate] 20 mg PO BID 03/21/14 09/12/18 History Ergocalciferol [Vitamin D2 50,000 unit PO MO 10/09/14 09/12/18 History (DRISDOL)] Levothyroxine Sodium [Synthroid] 150 mcg PO QAM 10/09/14 09/12/18 History Glimepiride [Amaryl] 1 mg PO AC-BRKFST 10/08/15 09/12/18 History rOPINIRole HCL [Requip] 0.5 mg PO HS 08/04/17 09/12/18 History Acyclovir 400 mg PO AC-BID #60 tablet 08/07/18 09/12/18 Rx Meclizine [Antivert] 25 mg PO TID PRN #14 tab 08/07/18 09/12/18 Rx Pantoprazole [Protonix] 40 mg PO AC-BID #60 tablet. 08/07/18 09/12/18 Rx Cyanocobalamin (Vitamin B-12) 1,000 mcg PO DAILY 08/22/18 09/12/18 History [Vitamin B-12] HYDROcodone/APAP 10-325MG [[place] 1 tab PO Q6H PRN 08/22/18 09/12/18 History 10-325] Lisinopril [Zestril] 5 mg PO DAILY 08/22/18 09/12/18 History Artificial Tears-Hypromellose 1 drops BOTH EYES QID PRN bottle 08/26/18 Rx [Artificial Tear Drops] Fluticasone/Salmeterol [Advair 2 puff INHALATION RT-BID 09/12/18 09/12/18 History 250-50 Diskus] Allergies Allergy/AdvReac Type Severity Reaction Status Date / Time allopurinol Allergy Itching Verified 09/12/18 09:08 cephalexin monohydrate Allergy Itching Verified 09/12/18 09:08 [From Keflex] clindamycin Allergy Itching Verified 09/12/18 09:08 NSAIDS (Non-Steroidal AdvReac Unknown STATES NO Verified 09/12/18 09:08 Anti-Inflamma NSAIDS DUE TO GASTRIC BYPASS ciprofloxacin [From Cipro] AdvReac severe Verified 09/12/18 09:08 heartburn doxycycline AdvReac severe Verified 09/12/18 09:08 heartburn Physical Exam Vitals: Vital Signs Temp Pulse Resp BP Pulse Ox 09/14/18 08:20 58 L 16 09/14/18 08:00 98.5 F 58 L 16 124/58 96 09/14/18 04:00 97.7 F 53 L 18 138/79 96 09/14/18 00:00 97.6 F 73 18 123/83 97 09/13/18 21:12 97.7 F 64 18 124/56 95 09/13/18 16:00 98.1 F 80 16 127/75 94 L 09/13/18 12:00 97.6 F 71 16 129/57 94 L Intake and Output 09/13/18 09/14/18 09/14/18 22:59 06:59 14:59 Intake Total 748.8 Balance 748.8 Intake: Intake, IV Titration 748.8 Amount DOXOrubicin HCL 22 mg In 47.6 Sodium Chloride 0.9% 250 ml @ 10.875 mls/hr IV Q24H [facility] Rx#:[id number] Etoposide 110 mg In 92 Sodium Chloride 0.9% 500 ml 500 ml @ 21.063 mls/hr IV Q24H [facility] Rx#: [id number] Sodium Chloride 0.9% 1, 600 000 ml @ 150 mls/hr IV . Q6H40M [facility] Rx#:[id number] vinCRIStine SULFATE 0.9 9.2 mg In Sodium Chloride 0.9 % 50 ml @ 2.121 mls/hr IV Q24H [facility] Rx#:[id number] Other: Voiding Method Toilet Toilet # Voids 1 Weight 120 kg 68-year-old female who is in no acute distress at this point in time, this just come back from the washroom HEENT: Anicteric conjunctiva are pink and moist nasal mucosa grossly intact without significant lesions, there is no thrush. Poor dentition Neck: The neck is supple without significant lymphadenopathy or thyromegaly. Lungs: There is symmetrical bilateral air entry with expiratory wheezes that are scattered but no gail bronchial sounds are heard no dullness or egophony Heart: Regular rate and rhythm with an audible S1-S2, no S3 no S4. There is no significant murmur click or rub, PMI was nondisplaced. Abdomen: Obese, Positive bowel sounds soft and nontender without palpable masses or organomegaly. There was no guarding or rebound. Extremities: The upper extremities have excellent pulses they are symmetric, no significant petechiae or telangiectasia. No splinter hemorrhages were noted. Lower extremities have chronic bilateral lower extremity edema but no significant open ulcerations are seen. Right groin has evidence of a 1 cm mobile structure feels like a lymph node that is nontender. Left groin has evidence of a at least 2 cm mobile structure, but also feels potentially like a lymph node. Patient relates that the site has gotten smaller since coming to hospital. It is nontender and there is no erythema to the site. Neuro: Awake alert oriented to person place and time. There are no acute new gross focal sensory motor deficits. Skin no evidence of rash or breakdown Results CBC & Chem 7: 09/14/18 07:08 09/14/18 07:08 Labs: Abnormal Lab Results - Last 24 Hours (Table) 09/13/18 09/13/18 09/13/18 Range/Units 07:35 11:51 16:50 RBC (3.80-5.40) m/uL Hgb (11.4-16.0) gm/dL Hct (34.0-46.0) % RDW (11.5-15.5) % Lymphocytes # (1.0-4.8) k/uL Chloride (98-107) mmol/L Glucose (74-99) mg/dL POC Glucose (mg/dL) 124 H 180 H (75-99) mg/dL Total Protein (6.3-8.2) g/dL Albumin (3.5-5.0) g/dL TSH 0.272 L (0.465-4.680) mIU/L 09/13/18 09/14/18 09/14/18 Range/Units 20:41 06:51 07:08 RBC 2.83 L (3.80-5.40) m/uL Hgb 8.7 L (11.4-16.0) gm/dL Hct 27.9 L (34.0-46.0) % RDW 19.4 H (11.5-15.5) % Lymphocytes # 0.4 L (1.0-4.8) k/uL Chloride (98-107) mmol/L Glucose (74-99) mg/dL POC Glucose (mg/dL) 125 H 204 H (75-99) mg/dL Total Protein (6.3-8.2) g/dL Albumin (3.5-5.0) g/dL TSH (0.465-4.680) mIU/L 09/14/18 Range/Units 07:08 RBC (3.80-5.40) m/uL Hgb (11.4-16.0) gm/dL Hct (34.0-46.0) % RDW (11.5-15.5) % Lymphocytes # (1.0-4.8) k/uL Chloride 114 H (98-107) mmol/L Glucose 181 H (74-99) mg/dL POC Glucose (mg/dL) (75-99) mg/dL Total Protein 5.0 L (6.3-8.2) g/dL Albumin 2.9 L (3.5-5.0) g/dL TSH (0.465-4.680) mIU/L Laboratory Results WBC 7.3 k/uL (3.8-10.6) 09/14/18 07:08 RBC 2.83 m/uL (3.80-5.40) L 09/14/18 07:08 Hgb 8.7 gm/dL (11.4-16.0) L 09/14/18 07:08 Hct 27.9 % (34.0-46.0) L 09/14/18 07:08 MCV 98.6 fL (80.0-100.0) 09/14/18 07:08 MCH 30.9 pg (25.0-35.0) 09/14/18 07:08 MCHC 31.3 g/dL (31.0-37.0) 09/14/18 07:08 RDW 19.4 % (11.5-15.5) H 09/14/18 07:08 Plt Count 450 k/uL (150-450) 09/14/18 07:08 Neutrophils % 90 % 09/14/18 07:08 Lymphocytes % 5 % 09/14/18 07:08 Monocytes % 4 % 09/14/18 07:08 Eosinophils % 0 % 09/14/18 07:08 Basophils % 0 % 09/14/18 07:08 Neutrophils # 6.6 k/uL (1.3-7.7) 09/14/18 07:08 Lymphocytes # 0.4 k/uL (1.0-4.8) L 09/14/18 07:08 Monocytes # 0.3 k/uL (0-1.0) 09/14/18 07:08 Eosinophils # 0.0 k/uL (0-0.7) 09/14/18 07:08 Basophils # 0.0 k/uL (0-0.2) 09/14/18 07:08 Hypochromasia Moderate 09/14/18 07:08 Anisocytosis Slight 09/14/18 07:08 Macrocytosis Moderate 09/14/18 07:08 Sodium 141 mmol/L (137-145) 09/14/18 07:08 Potassium 4.8 mmol/L (3.5-5.1) 09/14/18 07:08 Chloride 114 mmol/L (98-107) H 09/14/18 07:08 Carbon Dioxide 26 mmol/L (22-30) 09/14/18 07:08 Anion Gap 1 mmol/L 09/14/18 07:08 BUN 17 mg/dL (7-17) 09/14/18 07:08 Creatinine 0.58 mg/dL (0.52-1.04) 09/14/18 07:08 Est GFR (CKD-EPI)AfAm >90 (>60 ml/min/1.73 sqM) 09/14/18 07:08 Est GFR (CKD-EPI)NonAf >90 (>60 ml/min/1.73 sqM) 09/14/18 07:08 Glucose 181 mg/dL (74-99) H 09/14/18 07:08 POC Glucose (mg/dL) 144 mg/dL (75-99) H 09/14/18 11:32 POC Glu [employer] ID Jackson Morrow 09/14/18 11:32 Calcium 9.5 mg/dL (8.4-10.2) 09/14/18 07:08 Total Bilirubin 0.5 mg/dL (0.2-1.3) 09/14/18 07:08 AST 15 U/L (14-36) 09/14/18 07:08 ALT 24 U/L (9-52) 09/14/18 07:08 Alkaline Phosphatase 56 U/L (38-126) 09/14/18 07:08 Total Protein 5.0 g/dL (6.3-8.2) L 09/14/18 07:08 Albumin 2.9 g/dL (3.5-5.0) L 09/14/18 07:08 TSH 0.272 mIU/L (0.465-4.680) L 09/13/18 07:35 Free T4 1.23 ng/dL (0.78-2.19) 09/13/18 07:35 Assessment and Plan (1) Diffuse large B-cell lymphoma of extranodal site Current Visit: Yes Status: Acute Priority: High Code(s): C83.39 - DIFFUSE LARGE B-CELL LYMPHOMA, EXTRNOD AND SOLID ORGAN SITES SNOMED Code(s): 949418418 (2) Inguinal nodule Narrative/Plan: 68-year-old woman who has a history of diffuse large B-cell lymphoma undergoing her third cycle of chemotherapy which she's been tolerating modestly well. Physical evidence of the swelling to her left groin. The patient relates that she develops occasional subcutaneous nodules or abscesses that occasionally drain. The current swelling to the left groin is nontender. It's improving since coming to Hospital. She's having no fever or other difficulty. However distinct concerns given her significant altered immune system. A short course of minocycline will be utilized, should be better tolerated than other tetracyclines. The site will be monitored for any significant changes. If there is any drainage this should be cultured. Current Visit: Yes Status: Acute Priority: High Code(s): R19.09 - OTHER INTRA-ABDOMINAL AND PELVIC SWELLING, MASS AND LUMP SNOMED Code(s): 979942947
[2018-09-14] MEDS: MECLIZINE 25 MG TAB PO PRN (12:08)
[2018-09-14] MEDS: MINOCYCLINE 50 MG CAP PO SCH ×2 (12:08→20:33)
--- NOTE | 2018-09-14 15:05 | P.GSCN ---
History of Present Illness Consult date: 09/14/18 Reason for Consult: Left groin boil versus lymph node Requesting physician: Cady Campos History of present illness: CHIEF COMPLAINT: left groin boil versus lymph node HISTORY OF PRESENT ILLNESS: 68 year old female who is currently admitted to hospital for her third round of chemotherapy secondary to large B- cell lymphoma. General surgery was consulted to evaluate left groin for possible boil. Patient examined at the bedside with Dr. Tanner. Patient states "bump" on left groin is smaller today. She denies pain or discomfort to left groin. PAST MEDICAL HISTORY: See list. PAST SURGICAL HISTORY: See list. MEDICATIONS: See list. ALLERGIES: See list. SOCIAL HISTORY: No illicit drug use. REVIEW OF SYSTEMS: CONSTITUTIONAL: Denies fever or chills. HEENT: Denies blurred vision, vision changes, or eye pain. Denies hemoptysis ENDOCRINE: Denies heat or cold intolerance. CARDIOVASCULAR: Denies chest pain or pressure. RESPIRATORY: No shortness of breath. GASTROINTESTINAL: Denies abdominal pain. Denies nausea or vomiting. NEURO: Denies history of seizures. PSYCH: No depression or suicidal ideation HEMATOLOGIC: Denies bleeding disorders. LYMPHATIC: The patient denies any lumps and bumps around the neck. Reports small mass to left groin GENITOURINARY: Denies any blood in urine or increased urinary frequency. MUSCULOSKELETAL: Denies myalgias. Denies joint swelling. Denies decreased range of motion beyond patients baseline. SKIN: Denies pruitis. Denies rash. PHYSICAL EXAM: VITAL SIGNS: Currently stable. GENERAL: Well-developed in no acute distress. HEENT: No sclera icterus. Extraocular movements grossly intact. Moist buccal mucosa. Head is atraumatic, normocephalic. Hears conversational speech. No nasal drainage. NECK: Supple without lymphadenopathy. CHEST: Non-labored respirations and equal bilateral excursions. CARDIOVASCULAR: Regular rate with regular rhythm. Palpable 2+ radial pulses. ABDOMEN: Soft. Nondistended. Nontender. Enlarged lymph node palpable to left groin. MUSCULOSKELETAL: No clubbing, cyanosis or edema. NEUROLOGIC: No focal or lateralizing signs. Cranial nerves II through XII grossly intact. PSYCH: Appropriate affect. Alert and oriented to person, place and time. SKIN: Well perfused. Good skin turgor. IMAGING: US Groin: 3.2 cm complex lesion within the inguinal canal. This may represent a large lymph node. Other etiologies include infectious etiology not excluded. Correlate for soft tissue mass. ASSESSMENT: 1. Left inguinal lymph node lymphadenopathy likely secondary to large B-cell lymphoma PLAN: Patient does not require surgical intervention at this time. We will continue to monitor patient. Nurse practitioner note has been reviewed by physician. Signing provider agrees with the documented findings, assessment, and plan of care. Past Medical History Past Medical History: Asthma, Coronary Artery Disease (CAD), Cancer, Diabetes Mellitus, Hearing Disorder / Deafness, Hyperlipidemia, Hypertension, Musculoskeletal Disorder, Osteoarthritis (OA), Skin Disorder, Sleep Apnea/CPAP/ BIPAP, Thyroid Disorder Additional Past Medical History / Comment(s): DLBCL-receiving chemotherapy and had bradycardia, R colectomy d/t mass, ischemic heart disease, NIDDM type II, deaf/chronic otitis media L ear, chronic low back/neck and R shoulder pain, RLS , veritgo at times, L hand numbness tingling which she attributes to L sided carpal tunnel syndrome, varicosities, possible IBS/colitis and chron's per pt in the past, benign colon polyps, RLS, hypothyroid, allergic sinusitis, ASHLEY currently not using device. History of Any Multi-Drug Resistant Organisms: None Reported Past Surgical History: Bariatric Surgery, Bowel Resection, Cholecystectomy, Coronary Bypass/CABG, Heart Catheterization, Hernia Repair, Joint Replacement, Orthopedic Surgery, Tubal Ligation Additional Past Surgical History / Comment(s): KNEE ARTHROSCOPY,CABG x1 vessel ( 1992), LAP BAND AND REMOVAL. GASTRIC BYPASS 2012, UMBILICAL HERNIA REPAIR, KRISTOPHER. SHOULDER SURG, rt shoulder rotator cuff, KRISTOPHER CARPAL TUNNEL, L wrist surgery d/t injury,. KRISTOPHER EAR SURG WITH TUBES, TOTAL LEFT KNEE, RIGHT EAR SURG, RIGHT COLECTOMY (06/16/18) Past Anesthesia/Blood Transfusion Reactions: No Reported Reaction, Motion Sickness Additional Past Anesthesia/Blood Transfusion Reaction / Comm: VERTIGO Additional Psychological History / Comment(s): Single and lives in the family home with daughter, son, brother and grandchild. 2 pet dogs in the home. No service. No international travel. Does not work outside of the home. No current tobacco or alcohol use, stopped smoking in 1992 Smoking Status: Former smoker - Past Family History Mother Additional Family Medical History / Comment(s): Pt states her mother never went to the doctor so she does not know of any medical problems. Mother lived to be 87yrs old. Father Additional Family Medical History / Comment(s): Father at the age of 67yrs , pt does not know cause of . He had alcohol abuse Sister(s) Family Medical History: Cancer Additional Family Medical History / Comment(s): LUNG CA Medications and Allergies Home Medications Medication Instructions Recorded Confirmed Type Simvastatin [Zocor] 80 mg PO HS 03/21/14 09/12/18 History Zafirlukast [Accolate] 20 mg PO BID 03/21/14 09/12/18 History Ergocalciferol [Vitamin D2 50,000 unit PO MO 10/09/14 09/12/18 History (FAUSTO)] Levothyroxine Sodium [Synthroid] 150 mcg PO QAM 10/09/14 09/12/18 History Glimepiride [Amaryl] 1 mg PO AC-BRKFST 10/08/15 09/12/18 History rOPINIRole HCL [Requip] 0.5 mg PO HS 08/04/17 09/12/18 History Acyclovir 400 mg PO AC-BID #60 tablet 08/07/18 09/12/18 Rx Meclizine [Antivert] 25 mg PO TID PRN #14 tab 08/07/18 09/12/18 Rx Pantoprazole [Protonix] 40 mg PO AC-BID #60 tablet. 08/07/18 09/12/18 Rx Cyanocobalamin (Vitamin B-12) 1,000 mcg PO DAILY 08/22/18 09/12/18 History [Vitamin B-12] HYDROcodone/APAP 10-325MG [[place] 1 tab PO Q6H PRN 08/22/18 09/12/18 History 10-325] Lisinopril [Zestril] 5 mg PO DAILY 08/22/18 09/12/18 History Artificial Tears-Hypromellose 1 drops BOTH EYES QID PRN bottle 08/26/18 Rx [Artificial Tear Drops] Fluticasone/Salmeterol [Advair 2 puff INHALATION RT-BID 09/12/18 09/12/18 History 250-50 Diskus] Allergies Allergy/AdvReac Type Severity Reaction Status Date / Time allopurinol Allergy Itching Verified 09/12/18 09:08 cephalexin monohydrate Allergy Itching Verified 09/12/18 09:08 [From Keflex] clindamycin Allergy Itching Verified 09/12/18 09:08 NSAIDS (Non-Steroidal AdvReac Unknown STATES NO Verified 09/12/18 09:08 Anti-Inflamma NSAIDS DUE TO GASTRIC BYPASS ciprofloxacin [From Cipro] AdvReac severe Verified 09/12/18 09:08 heartburn doxycycline AdvReac severe Verified 09/12/18 09:08 heartburn Surgical - Exam Vital Signs Temp Pulse Resp BP Pulse Ox 97.6 F 60 19 172/70 95 09/12/18 08:00 09/12/18 08:00 09/12/18 08:00 09/12/18 08:00 09/12/18 08:00 Results - Labs 09/14/18 07:08 09/14/18 07:08 Abnormal Lab Results - Last 24 Hours (Table) 09/13/18 09/13/18 09/13/18 Range/Units 07:35 16:50 20:41 RBC (3.80-5.40) m/uL Hgb (11.4-16.0) gm/dL Hct (34.0-46.0) % RDW (11.5-15.5) % Lymphocytes # (1.0-4.8) k/uL Chloride (98-107) mmol/L Glucose (74-99) mg/dL POC Glucose (mg/dL) 180 H 125 H (75-99) mg/dL Total Protein (6.3-8.2) g/dL Albumin (3.5-5.0) g/dL TSH 0.272 L (0.465-4.680) mIU/L 09/14/18 09/14/18 09/14/18 Range/Units 06:51 07:08 07:08 RBC 2.83 L (3.80-5.40) m/uL Hgb 8.7 L (11.4-16.0) gm/dL Hct 27.9 L (34.0-46.0) % RDW 19.4 H (11.5-15.5) % Lymphocytes # 0.4 L (1.0-4.8) k/uL Chloride 114 H (98-107) mmol/L Glucose 181 H (74-99) mg/dL POC Glucose (mg/dL) 204 H (75-99) mg/dL Total Protein 5.0 L (6.3-8.2) g/dL Albumin 2.9 L (3.5-5.0) g/dL TSH (0.465-4.680) mIU/L 09/14/18 Range/Units 11:32 RBC (3.80-5.40) m/uL Hgb (11.4-16.0) gm/dL Hct (34.0-46.0) % RDW (11.5-15.5) % Lymphocytes # (1.0-4.8) k/uL Chloride (98-107) mmol/L Glucose (74-99) mg/dL POC Glucose (mg/dL) 144 H (75-99) mg/dL Total Protein (6.3-8.2) g/dL Albumin (3.5-5.0) g/dL TSH (0.465-4.680) mIU/L Diabetes panel 09/14/18 Range/Units 07:08 Sodium 141 (137-145) mmol/L Potassium 4.8 (3.5-5.1) mmol/L Chloride 114 H (98-107) mmol/L Carbon Dioxide 26 (22-30) mmol/L BUN 17 (7-17) mg/dL Creatinine 0.58 (0.52-1.04) mg/dL Glucose 181 H (74-99) mg/dL Calcium 9.5 (8.4-10.2) mg/dL AST 15 (14-36) U/L ALT 24 (9-52) U/L Alkaline Phosphatase 56 (38-126) U/L Total Protein 5.0 L (6.3-8.2) g/dL Albumin 2.9 L (3.5-5.0) g/dL Thyroid panel 09/13/18 Range/Units 07:35 TSH 0.272 L (0.465-4.680) mIU/L Calcium panel 09/14/18 Range/Units 07:08 Calcium 9.5 (8.4-10.2) mg/dL Albumin 2.9 L (3.5-5.0) g/dL Pituitary panel 09/13/18 09/14/18 Range/Units 07:35 07:08 Sodium 141 (137-145) mmol/L Potassium 4.8 (3.5-5.1) mmol/L Chloride 114 H (98-107) mmol/L Carbon Dioxide 26 (22-30) mmol/L BUN 17 (7-17) mg/dL Creatinine 0.58 (0.52-1.04) mg/dL Glucose 181 H (74-99) mg/dL Calcium 9.5 (8.4-10.2) mg/dL TSH 0.272 L (0.465-4.680) mIU/L Adrenal panel 09/14/18 Range/Units 07:08 Sodium 141 (137-145) mmol/L Potassium 4.8 (3.5-5.1) mmol/L Chloride 114 H (98-107) mmol/L Carbon Dioxide 26 (22-30) mmol/L BUN 17 (7-17) mg/dL Creatinine 0.58 (0.52-1.04) mg/dL Glucose 181 H (74-99) mg/dL Calcium 9.5 (8.4-10.2) mg/dL Total Bilirubin 0.5 (0.2-1.3) mg/dL AST 15 (14-36) U/L ALT 24 (9-52) U/L Alkaline Phosphatase 56 (38-126) U/L Total Protein 5.0 L (6.3-8.2) g/dL Albumin 2.9 L (3.5-5.0) g/dL
[2018-09-14 16:40] LABS: Glucose,Whole Blood 198 mg/dL (75-99)
[2018-09-14] MEDS: FAMOTIDINE 20 MG/2 ML VIAL IV SCH (18:57)
[2018-09-14] MEDS: ONDANSETRON 16 MG in SODIUM CHLORIDE 0.9% 50 ML IVPB SCH ×2 (18:59→19:01)
[2018-09-14] MEDS: SODIUM CHLORIDE 0.9% IV SCH ×3 (19:16→19:19)
[2018-09-14] MEDS: DOXORUBICIN HCL IV SCH (19:16)
[2018-09-14] MEDS: VINCRISTINE SULFATE IV SCH (19:18)
[2018-09-14] MEDS: ETOPOSIDE IV SCH (19:19)
--- NOTE | 2018-09-14 19:26 | P.PN ---
Subjective Progress Note Date: 09/14/18 Principal diagnosis: diffuse large B-cell lymphoma, admit continuous IV infusion chemotherapy Pt seen in f/u, ID examined suspected boil, it is smaller today. Pt states her arrhythmia is suspected to be contributed to by her apnea, she sees Dr. Solorio for this. She has no c/o on a 14 point ROS, appetite is decent, adequate fluids, ambulating Objective - Vital Signs Vital signs: Vital Signs Temp 98.3 F 09/14/18 16:00 Pulse 56 L 09/14/18 16:00 Resp 16 09/14/18 16:00 BP 130/55 09/14/18 16:00 Pulse Ox 96 09/14/18 16:00 Intake & Output 09/14/18 09/14/18 09/15/18 06:59 18:59 06:59 Intake Total 748.8 1560 Balance 748.8 1560 Weight 120 kg Intake: Intake, IV Titration 748.8 1200 Amount DOXOrubicin HCL 22 mg In 47.6 Sodium Chloride 0.9% 250 ml @ 10.875 mls/hr IV Q24H [facility] Rx#:[id number] Etoposide 110 mg In 92 Sodium Chloride 0.9% 500 ml 500 ml @ 21.063 mls/hr IV Q24H [facility] Rx#: [id number] Sodium Chloride 0.9% 1, 600 1200 000 ml @ 150 mls/hr IV . Q6H40M [facility] Rx#:[id number] vinCRIStine SULFATE 0.9 9.2 mg In Sodium Chloride 0.9 % 50 ml @ 2.121 mls/hr IV Q24H [facility] Rx#:[id number] Oral 360 Other: Voiding Method Toilet Toilet # Voids 1 3 - Constitutional General appearance: Present: cooperative, morbidly obese, no acute distress - EENT Eyes: Present: anicteric sclerae, edentulous, EOMI ENT: Present: hearing grossly normal, normal oropharynx - Respiratory Respiratory: bilateral: CTA - Cardiovascular Rhythm: irregularly irregular Heart sounds: normal: S1, S2 Abnormal Heart Sounds: Absent: systolic murmur, diastolic murmur, rub, S3 Gallop , S4 Gallop, click, other - Peripheral edema leg Peripheral Edema: bilateral: Trace - Gastrointestinal General gastrointestinal: Present: normal bowel sounds, soft - Integumentary Integumentary Comment(s): left inguinal nodule smaller, 1cm, rubbery, mobile Integumentary: Present: pale - Neurologic Neurologic: Present: CNII-XII intact - Musculoskeletal Musculoskeletal: Present: strength equal bilaterally - Psychiatric Psychiatric: Present: A&O x's 3, appropriate affect, intact judgment & insight - Labs CBC & Chem 7: 09/14/18 07:08 09/14/18 07:08 Labs: Abnormal Lab Results - Last 24 Hours (Table) 09/13/18 09/14/18 09/14/18 Range/Units 20:41 06:51 07:08 RBC 2.83 L (3.80-5.40) m/uL Hgb 8.7 L (11.4-16.0) gm/dL Hct 27.9 L (34.0-46.0) % RDW 19.4 H (11.5-15.5) % Lymphocytes # 0.4 L (1.0-4.8) k/uL Chloride (98-107) mmol/L Glucose (74-99) mg/dL POC Glucose (mg/dL) 125 H 204 H (75-99) mg/dL Total Protein (6.3-8.2) g/dL Albumin (3.5-5.0) g/dL 09/14/18 09/14/18 09/14/18 Range/Units 07:08 11:32 16:39 RBC (3.80-5.40) m/uL Hgb (11.4-16.0) gm/dL Hct (34.0-46.0) % RDW (11.5-15.5) % Lymphocytes # (1.0-4.8) k/uL Chloride 114 H (98-107) mmol/L Glucose 181 H (74-99) mg/dL POC Glucose (mg/dL) 144 H 198 H (75-99) mg/dL Total Protein 5.0 L (6.3-8.2) g/dL Albumin 2.9 L (3.5-5.0) g/dL Assessment and Plan (1) Inguinal nodule Narrative/Plan: Surgery does not feel lymph node. ID seen pt, suspect boil. Due to pt immunocompromised state a course of oral abx going to be prescribed. Appreciate all the collaboration Current Visit: Yes Status: Acute Priority: High Code(s): R19.09 - OTHER INTRA-ABDOMINAL AND PELVIC SWELLING, MASS AND LUMP SNOMED Code(s): 860819177 (2) Diffuse large B-cell lymphoma of extranodal site Narrative/Plan: Cont CIVI chemo without adjustment Supportive meds ordered Labs daily GI/DVT prophylaxis PCP consulted for Medical Mgmt Cardiology for arrhythmia Current Visit: Yes Status: Acute Priority: High Code(s): C83.39 - DIFFUSE LARGE B-CELL LYMPHOMA, EXTRNOD AND SOLID ORGAN SITES SNOMED Code(s): 639412239 (3) Bradyarrhythmia Narrative/Plan: Cont telelmetry monitoring while on chemo. Did consult Dr. Solorio as pt is supposed to be evaluated for c-pap Current Visit: No Status: Acute Priority: High Code(s): I49.8 - OTHER SPECIFIED CARDIAC ARRHYTHMIAS SNOMED Code(s): 261697190 (4) Chronic pain syndrome Narrative/Plan: Cont home meds Current Visit: No Status: Chronic Priority: Low Code(s): G89.4 - CHRONIC PAIN SYNDROME SNOMED Code(s): 087812464 (5) Antineoplastic chemotherapy induced anemia Narrative/Plan: Mild, expected, no acute intervention, daily CBC Current Visit: Yes Status: Acute Priority: Medium Code(s): D64.81 - ANEMIA DUE TO ANTINEOPLASTIC CHEMOTHERAPY; T45.1X5A - ADVERSE EFFECT OF ANTINEOPLASTIC AND IMMUNOSUP DRUGS, INIT SNOMED Code(s): 411681292
[2018-09-14 19:59] LABS: Glucose,Whole Blood 196 mg/dL (75-99)
[2018-09-14] MEDS: ATORVASTATIN 40 MG TAB PO SCH (20:32)
[2018-09-14] MEDS: MONTELUKAST 10 MG TAB PO SCH (20:33)
[2018-09-15] MEDS: HYDROcodone/APAP 10-325MG 1 EACH TAB PO PRN ×4 (01:11→20:31)
[2018-09-15] MEDS: LEVOTHYROXINE 75 MCG TAB PO SCH (05:33)
[2018-09-15] MEDS: SODIUM CHLORIDE 0.9% 1,000 ML IV SCH ×3 (05:33→18:38)
[2018-09-15 06:59] LABS: Glucose,Whole Blood 180 mg/dL (75-99)
[2018-09-15] MEDS: BENZOCAINE/MENTHOL LOZENG 1 EACH LOZENGE MUCOUS MEM PRN ×3 (08:09→17:53)
[2018-09-15] MEDS: predniSONE 50 MG TAB PO SCH ×2 (08:10→20:29)
[2018-09-15] MEDS: MINOCYCLINE 50 MG CAP PO SCH ×2 (08:10→20:31)
[2018-09-15] MEDS: INSULIN ASPART 100 UNIT/ML 1 ML 10 ML VIAL SQ SCH ×4 (08:10→20:30)
[2018-09-15] MEDS: GLIMEPIRIDE 1 MG TAB PO SCH (08:10)
[2018-09-15] MEDS: LISINOPRIL 5 MG TAB PO SCH (08:10)
[2018-09-15] MEDS: ACYCLOVIR 200 MG CAP PO SCH ×2 (08:10→16:36)
[2018-09-15] MEDS: predniSONE 10 MG TAB PO SCH ×2 (08:10→20:29)
[2018-09-15] MEDS: PANTOPRAZOLE 40 MG TABLET PO SCH ×2 (08:10→16:36)
[2018-09-15] MEDS: SALT AND SODA MOUTHWASH 1,000 ML PO SCH ×4 (08:11→21:42)
[2018-09-15] MEDS: SYMBICORT 80-4.5 MCG INHALER INHALATION SCH ×2 (08:17→20:25)
[2018-09-15] MEDS ORDERED: IPRATROPIUM-ALBUTEROL 3 ML NEB INHALATION PRN (08:58)
[2018-09-15 09:29] LABS: Potassium 4.5 mmol/L (3.5-5.1)
[2018-09-15 09:30] LABS: ALT 17 U/L (9-52); AST 17 U/L (14-36); Albumin 3.1 g/dL (3.5-5.0); Alkaline Phosphatase 48 U/L (38-126); Anion Gap 6 mmol/L; Blood Urea Nitrogen 20 mg/dL (7-17); Calcium 9.8 mg/dL (8.4-10.2); Carbon Dioxide 25 mmol/L (22-30); Chloride 111 mmol/L (98-107); Glucose 192 mg/dL (74-99); Sodium 142 mmol/L (137-145); Total Bilirubin 0.6 mg/dL (0.2-1.3); Total Protein 5.3 g/dL (6.3-8.2)
[2018-09-15 09:33] LABS: Anisocytosis Slight; Basophils % (A) 0 %; Eosinophils % (A) 0 %; HCT 28.8 % (34.0-46.0); Hypochromasia Marked; Lymphocytes # (A) 0.5 k/uL (1.0-4.8); Lymphocytes % (A) 9 %; MCH 31.7 pg (25.0-35.0); MCHC 31.3 g/dL (31.0-37.0); MCV 101.2 fL (80.0-100.0); Macrocytosis Moderate; Mean Platelet Volume 6.4; Monocytes # (A) 0.5 k/uL (0-1.0); Monocytes % (A) 9 %; Neutrophils # (A) 4.4 k/uL (1.3-7.7); Neutrophils % (A) 81 %; Platelet Count 417 k/uL (150-450); RBC 2.84 m/uL (3.80-5.40); RDW 19.7 % (11.5-15.5); WBC 5.5 k/uL (3.8-10.6)
--- NOTE | 2018-09-15 09:59 | PN ---
PROGRESS NOTE DATE OF SERVICE: 09/14/2018 SUBJECTIVE: A 68-year-old white female in for treatment for her B-cell lymphoma. She has a 3 cm mass on the left lower quadrant for possible biopsy complex cyst. Awaiting surgical recommendations. Her heart rates has been in the 50s. She is sitting up, talking. Vital signs appear to be stable. CARDIOVASCULAR: S1, S2. Lungs are clear. GI: Soft. Left lower groin nodule palpable, maybe a little bit smaller than yesterday. ASSESSMENT: 1. Asthma, stable. 2. Hypothyroidism, stable. 3. Hypertension with bradycardia due to chemo. Cardiology seen for that. 4. Cyst in her left groin, possibly will be biopsied. Wait for surgical recommendations. MMODL / IJN: [id number] /
[2018-09-15 11:17] LABS: Glucose,Whole Blood 122 mg/dL (75-99)
--- NOTE | 2018-09-15 11:20 | P.PN ---
Subjective Progress Note Date: 09/15/18 CHIEF COMPLAINT: left groin boil versus lymph node HISTORY OF PRESENT ILLNESS: Patient examined at the bedside. She denies pain to left groin. No redness. Currently undergoing chemotherapy. PHYSICAL EXAM: VITAL SIGNS: Currently stable. GENERAL: Well-developed in no acute distress. HEENT: No sclera icterus. Extraocular movements grossly intact. Moist buccal mucosa. Head is atraumatic, normocephalic. Hears conversational speech. No nasal drainage. NECK: Supple without lymphadenopathy. CHEST: Non-labored respirations and equal bilateral excursions. CARDIOVASCULAR: Regular rate with regular rhythm. Palpable 2+ radial pulses. ABDOMEN: Soft. Nondistended. Nontender. Enlarged lymph node palpable to left groin. MUSCULOSKELETAL: No clubbing, cyanosis or edema. NEUROLOGIC: No focal or lateralizing signs. Cranial nerves II through XII grossly intact. PSYCH: Appropriate affect. Alert and oriented to person, place and time. SKIN: Well perfused. Good skin turgor. IMAGING: US Groin: 3.2 cm complex lesion within the inguinal canal. This may represent a large lymph node. Other etiologies include infectious etiology not excluded. Correlate for soft tissue mass. ASSESSMENT: 1. Left inguinal lymph node lymphadenopathy likely secondary to large B-cell lymphoma PLAN: Continue antibiotics. Patient does not require surgical intervention at this time. We will continue to monitor patient. Nurse practitioner note has been reviewed by physician. Signing provider agrees with the documented findings, assessment, and plan of care. Objective - Vital Signs Vital signs: Vital Signs Temp 98 F 09/15/18 08:00 Pulse 47 L 09/15/18 08:00 Resp 18 09/15/18 08:00 BP 149/63 09/15/18 08:00 Pulse Ox 97 09/15/18 08:00 Intake & Output 09/14/18 09/15/18 09/15/18 18:59 06:59 18:59 Intake Total 1560 1650 Balance 1560 1650 Weight 123 kg Intake: Intake, IV Titration 1200 1650 Amount Sodium Chloride 0.9% 1, 1200 1650 000 ml @ 150 mls/hr IV . Q6H40M [facility] Rx#:[id number] Oral 360 Other: Voiding Method Toilet Toilet # Voids 3 3 - Labs CBC & Chem 7: 09/15/18 08:28 09/15/18 08:28 Labs: Abnormal Lab Results - Last 24 Hours (Table) 09/14/18 09/14/18 09/14/18 Range/Units 11:32 16:39 19:57 RBC (3.80-5.40) m/uL Hgb (11.4-16.0) gm/dL Hct (34.0-46.0) % MCV (80.0-100.0) fL RDW (11.5-15.5) % Lymphocytes # (1.0-4.8) k/uL Chloride (98-107) mmol/L BUN (7-17) mg/dL Glucose (74-99) mg/dL POC Glucose (mg/dL) 144 H 198 H 196 H (75-99) mg/dL Total Protein (6.3-8.2) g/dL Albumin (3.5-5.0) g/dL 09/15/18 09/15/18 09/15/18 Range/Units 06:58 08:28 08:28 RBC 2.84 L (3.80-5.40) m/uL Hgb 9.0 L (11.4-16.0) gm/dL Hct 28.8 L (34.0-46.0) % MCV 101.2 H (80.0-100.0) fL RDW 19.7 H (11.5-15.5) % Lymphocytes # 0.5 L (1.0-4.8) k/uL Chloride 111 H (98-107) mmol/L BUN 20 H (7-17) mg/dL Glucose 192 H (74-99) mg/dL POC Glucose (mg/dL) 180 H (75-99) mg/dL Total Protein 5.3 L (6.3-8.2) g/dL Albumin 3.1 L (3.5-5.0) g/dL 09/15/18 Range/Units 11:16 RBC (3.80-5.40) m/uL Hgb (11.4-16.0) gm/dL Hct (34.0-46.0) % MCV (80.0-100.0) fL RDW (11.5-15.5) % Lymphocytes # (1.0-4.8) k/uL Chloride (98-107) mmol/L BUN (7-17) mg/dL Glucose (74-99) mg/dL POC Glucose (mg/dL) 122 H (75-99) mg/dL Total Protein (6.3-8.2) g/dL Albumin (3.5-5.0) g/dL
[2018-09-15] MEDS: CYANOCOBALAMIN 500 MCG TAB PO SCH (12:08)
[2018-09-15] MEDS: MECLIZINE 25 MG TAB PO PRN (12:08)
[2018-09-15] MEDS: IPRATROPIUM-ALBUTEROL 3 ML NEB INHALATION SCH ×3 (12:15→20:25)
--- NOTE | 2018-09-15 15:20 | P.PN ---
Subjective Progress Note Date: 09/15/18 Principal diagnosis: diffuse large B-cell lymphoma, admit continuous IV infusion chemotherapy Pt seen in f/u. She is doing ok, she has been seen by Cardiology for arrhythmia , Pulmonary for apnea, Surgery and ID left groin boil. Her HR continues to be labile, she is on telemetry, denies NASEEM, can get SOB on exertion, no dizziness, near syncopy, swelling, chest discomfort or palpitations, the left inguinal boil cont to get smaller, not painful, no new boils to report. No oral irritation, nausea, dysuria, diarrhea or constipation Objective - Vital Signs Vital signs: Vital Signs Temp 98 F 09/15/18 12:00 Pulse 47 L 09/15/18 12:25 Resp 17 09/15/18 12:00 BP 139/57 09/15/18 12:00 Pulse Ox 97 09/15/18 12:00 Intake & Output 09/14/18 09/15/18 09/15/18 18:59 06:59 18:59 Intake Total 1560 1650 Balance 1560 1650 Weight 123 kg Intake: Intake, IV Titration 1200 1650 Amount Sodium Chloride 0.9% 1, 1200 1650 000 ml @ 150 mls/hr IV . Q6H40M [facility] Rx#:[id number] Oral 360 Other: Voiding Method Toilet Toilet # Voids 3 3 - Constitutional General appearance: Present: cooperative, morbidly obese, no acute distress - EENT Eyes: Present: anicteric sclerae, EOMI ENT: Present: normal oropharynx - Respiratory Respiratory: bilateral: CTA - Cardiovascular Heart sounds: normal: S1, S2 Abnormal Heart Sounds: Present: systolic murmur - Peripheral edema leg Peripheral Edema: bilateral: Trace - Gastrointestinal General gastrointestinal: Present: normal bowel sounds, soft - Integumentary Integumentary: Present: normal turgor - Neurologic Neurologic: Present: CNII-XII intact - Musculoskeletal Musculoskeletal: Present: strength equal bilaterally - Psychiatric Psychiatric: Present: A&O x's 3, appropriate affect, intact judgment & insight - Labs CBC & Chem 7: 09/15/18 08:28 09/15/18 08:28 Labs: Abnormal Lab Results - Last 24 Hours (Table) 09/14/18 09/14/18 09/15/18 Range/Units 16:39 19:57 06:58 RBC (3.80-5.40) m/uL Hgb (11.4-16.0) gm/dL Hct (34.0-46.0) % MCV (80.0-100.0) fL RDW (11.5-15.5) % Lymphocytes # (1.0-4.8) k/uL Chloride (98-107) mmol/L BUN (7-17) mg/dL Glucose (74-99) mg/dL POC Glucose (mg/dL) 198 H 196 H 180 H (75-99) mg/dL Total Protein (6.3-8.2) g/dL Albumin (3.5-5.0) g/dL 09/15/18 09/15/18 09/15/18 Range/Units 08:28 08:28 11:16 RBC 2.84 L (3.80-5.40) m/uL Hgb 9.0 L (11.4-16.0) gm/dL Hct 28.8 L (34.0-46.0) % MCV 101.2 H (80.0-100.0) fL RDW 19.7 H (11.5-15.5) % Lymphocytes # 0.5 L (1.0-4.8) k/uL Chloride 111 H (98-107) mmol/L BUN 20 H (7-17) mg/dL Glucose 192 H (74-99) mg/dL POC Glucose (mg/dL) 122 H (75-99) mg/dL Total Protein 5.3 L (6.3-8.2) g/dL Albumin 3.1 L (3.5-5.0) g/dL Assessment and Plan (1) Inguinal nodule Narrative/Plan: Nearly resolved, ID treating with minocycline Current Visit: Yes Status: Acute Priority: High Code(s): R19.09 - OTHER INTRA-ABDOMINAL AND PELVIC SWELLING, MASS AND LUMP SNOMED Code(s): 818193312 (2) Diffuse large B-cell lymphoma of extranodal site Narrative/Plan: Cont CIVI chemo without adjustment Supportive meds as ordered Labs daily GI/DVT prophylaxis PCP consulted for Medical Mgmt Cardiology for arrhythmia Pulm for apnea ID for boils Current Visit: Yes Status: Acute Priority: High Code(s): C83.39 - DIFFUSE LARGE B-CELL LYMPHOMA, EXTRNOD AND SOLID ORGAN SITES SNOMED Code(s): 421722457 (3) Bradyarrhythmia Narrative/Plan: Cont telelmetry monitoring while on chemo. Dr. Solorio has seen pt and she is going to be evaluated for c-pap Current Visit: No Status: Acute Priority: High Code(s): I49.8 - OTHER SPECIFIED CARDIAC ARRHYTHMIAS SNOMED Code(s): 075182316 (4) Chronic pain syndrome Current Visit: No Status: Chronic Priority: Low Code(s): G89.4 - CHRONIC PAIN SYNDROME SNOMED Code(s): 277775998 (5) Antineoplastic chemotherapy induced anemia Narrative/Plan: Mild, expected, no acute intervention, daily CBC Current Visit: Yes Status: Acute Priority: Medium Code(s): D64.81 - ANEMIA DUE TO ANTINEOPLASTIC CHEMOTHERAPY; T45.1X5A - ADVERSE EFFECT OF ANTINEOPLASTIC AND IMMUNOSUP DRUGS, INIT SNOMED Code(s): 152476797 Plan: Anticipate DC after completion of chemo tomorrow evening Follow up appt in chart for CBC and GCSF on Wednesday in office
--- NOTE | 2018-09-15 15:39 | P.CNPUL ---
History of Present Illness Reason for consult: dyspnea, cough, asthma, COPD, obstructive sleep apnea Chief complaint: Shortness of breath, tachybradycardia syndrome, sleep disorder breathing an History of present illness: 68-year-old morbidly obese female well-known to me patient has a history of the sleep disorder breathing and sleep apnea patient has been using CPAP machine at home, however post the weight loss surgery patient lost significant amount of overweight has not been using CPAP machine which was returned however over the period time in last year patient has acquired about 100 250 pounds back, recently patient has been found to have a B-cell lymphoma and currently undergoing chemotherapy, patient has been noted to have intermittent bradycardia and tachycardia as well as patient also noted to have intermittent apneas and loud snoring, patient will require repeat polysomnogram as well as the arrangement a new CPAP machine which is to be performed outpatient basis, patient for now is being started on BiPAP each night and when necessary during the day also has been having issues associated shortness breath and wheezing is being placed on IV steroids along with bronchodilator therapy in the form of nebulizer Review of Systems All systems: negative Past Medical History Past Medical History: Asthma, Coronary Artery Disease (CAD), Cancer, Diabetes Mellitus, Hearing Disorder / Deafness, Hyperlipidemia, Hypertension, Musculoskeletal Disorder, Osteoarthritis (OA), Skin Disorder, Sleep Apnea/CPAP/ BIPAP, Thyroid Disorder Additional Past Medical History / Comment(s): DLBCL-receiving chemotherapy and had bradycardia, R colectomy d/t mass, ischemic heart disease, NIDDM type II, deaf/chronic otitis media L ear, chronic low back/neck and R shoulder pain, RLS , veritgo at times, L hand numbness tingling which she attributes to L sided carpal tunnel syndrome, varicosities, possible IBS/colitis and chron's per pt in the past, benign colon polyps, RLS, hypothyroid, allergic sinusitis, ASHLEY currently not using device. History of Any Multi-Drug Resistant Organisms: None Reported Past Surgical History: Bariatric Surgery, Bowel Resection, Cholecystectomy, Coronary Bypass/CABG, Heart Catheterization, Hernia Repair, Joint Replacement, Orthopedic Surgery, Tubal Ligation Additional Past Surgical History / Comment(s): KNEE ARTHROSCOPY,CABG x1 vessel ( 1992), LAP BAND AND REMOVAL. GASTRIC BYPASS 2012, UMBILICAL HERNIA REPAIR, KRISTOPHER. SHOULDER SURG, rt shoulder rotator cuff, KRISTOPHER CARPAL TUNNEL, L wrist surgery d/t injury,. KRISTOPHER EAR SURG WITH TUBES, TOTAL LEFT KNEE, RIGHT EAR SURG, RIGHT COLECTOMY (06/16/18) Past Anesthesia/Blood Transfusion Reactions: No Reported Reaction, Motion Sickness Additional Past Anesthesia/Blood Transfusion Reaction / Comment(s): VERTIGO Additional Psychological History / Comment(s): Single and lives in the family home with daughter, son, brother and grandchild. 2 pet dogs in the home. No service. No international travel. Does not work outside of the home. No current tobacco or alcohol use, stopped smoking in 1992 Smoking Status: Former smoker - Past Family History Mother Additional Family Medical History / Comment(s): Pt states her mother never went to the doctor so she does not know of any medical problems. Mother lived to be 87yrs old. Father Additional Family Medical History / Comment(s): Father at the age of 67yrs , pt does not know cause of . He had alcohol abuse Sister(s) Family Medical History: Cancer Additional Family Medical History / Comment(s): LUNG CA Medications and Allergies Home Medications Medication Instructions Recorded Confirmed Type Simvastatin [Zocor] 80 mg PO HS 03/21/14 09/12/18 History Zafirlukast [Accolate] 20 mg PO BID 03/21/14 09/12/18 History Ergocalciferol [Vitamin D2 50,000 unit PO MO 10/09/14 09/12/18 History (DRISDOL)] Levothyroxine Sodium [Synthroid] 150 mcg PO QAM 10/09/14 09/12/18 History Glimepiride [Amaryl] 1 mg PO AC-BRKFST 10/08/15 09/12/18 History rOPINIRole HCL [Requip] 0.5 mg PO HS 08/04/17 09/12/18 History Acyclovir 400 mg PO AC-BID #60 tablet 08/07/18 09/12/18 Rx Meclizine [Antivert] 25 mg PO TID PRN #14 tab 08/07/18 09/12/18 Rx Pantoprazole [Protonix] 40 mg PO AC-BID #60 tablet. 08/07/18 09/12/18 Rx Cyanocobalamin (Vitamin B-12) 1,000 mcg PO DAILY 08/22/18 09/12/18 History [Vitamin B-12] HYDROcodone/APAP 10-325MG [[place] 1 tab PO Q6H PRN 08/22/18 09/12/18 History 10-325] Lisinopril [Zestril] 5 mg PO DAILY 08/22/18 09/12/18 History Artificial Tears-Hypromellose 1 drops BOTH EYES QID PRN bottle 08/26/18 Rx [Artificial Tear Drops] Fluticasone/Salmeterol [Advair 2 puff INHALATION RT-BID 09/12/18 09/12/18 History 250-50 Diskus] Allergies Allergy/AdvReac Type Severity Reaction Status Date / Time allopurinol Allergy Itching Verified 09/12/18 09:08 cephalexin monohydrate Allergy Itching Verified 09/12/18 09:08 [From Keflex] clindamycin Allergy Itching Verified 09/12/18 09:08 NSAIDS (Non-Steroidal AdvReac Unknown STATES NO Verified 09/12/18 09:08 Anti-Inflamma NSAIDS DUE TO GASTRIC BYPASS ciprofloxacin [From Cipro] AdvReac severe Verified 09/12/18 09:08 heartburn doxycycline AdvReac severe Verified 09/12/18 09:08 heartburn Physical Exam Vitals: Vital Signs Temp Pulse Pulse Resp BP Pulse Ox 09/15/18 12:25 47 L 09/15/18 12:16 44 L 09/15/18 12:00 98 F 39 L 17 139/57 97 09/15/18 08:00 98 F 47 L 18 149/63 97 09/15/18 04:00 97.7 F 47 L 18 149/69 97 09/15/18 00:00 98 F 54 L 18 152/60 93 L 09/14/18 20:00 98.2 F 50 L 18 123/87 98 09/14/18 16:00 98.3 F 56 L 16 130/55 96 09/14/18 15:50 54 L 16 Intake and Output 09/15/18 09/15/18 09/15/18 06:59 14:59 22:59 Intake Total 1200 Balance 1200 Intake: Intake, IV Titration 1200 Amount Sodium Chloride 0.9% 1, 1200 000 ml @ 150 mls/hr IV . Q6H40M [facility] Rx#:[id number] Other: Voiding Method Toilet # Voids 3 Weight 123 kg - Constitutional General appearance: Present: cooperative, morbidly obese, no acute distress - EENT Eyes: Present: anicteric sclerae, EOMI ENT: Present: normal oropharynx - Respiratory Respiratory: bilateral: CTA - Cardiovascular Heart sounds: normal: S1, S2 Abnormal Heart Sounds: Present: systolic murmur - Peripheral edema leg Peripheral Edema: bilateral: Trace - Gastrointestinal General gastrointestinal: Present: normal bowel sounds, soft - Integumentary Integumentary: Present: normal turgor - Neurologic Neurologic: Present: CNII-XII intact - Musculoskeletal Musculoskeletal: Present: strength equal bilaterally - Psychiatric Psychiatric: Present: A&O x's 3, appropriate affect, intact judgment & insight Results - Laboratory Findings CBC and BMP: 09/15/18 08:28 09/15/18 08:28 Abnormal lab findings: Abnormal Labs 09/12/18 09/12/18 09/12/18 09:20 09:20 11:49 RBC 3.01 L Hgb 9.1 L Hct 29.0 L MCV RDW 19.0 H Lymphocytes # Chloride 109 H BUN Glucose POC Glucose (mg/dL) 192 H Total Protein 5.5 L Albumin 3.2 L TSH 09/12/18 09/12/18 09/13/18 16:30 19:56 06:53 RBC Hgb Hct MCV RDW Lymphocytes # Chloride BUN Glucose POC Glucose (mg/dL) 171 H 251 H 196 H Total Protein Albumin TSH 09/13/18 09/13/18 09/13/18 07:35 07:35 07:35 RBC 2.79 L Hgb 8.5 L Hct 27.3 L MCV RDW 18.9 H Lymphocytes # 0.5 L Chloride 110 H BUN Glucose 174 H POC Glucose (mg/dL) Total Protein 5.1 L Albumin 3.0 L TSH 0.272 L 09/13/18 09/13/18 09/13/18 11:51 16:50 20:41 RBC Hgb Hct MCV RDW Lymphocytes # Chloride BUN Glucose POC Glucose (mg/dL) 124 H 180 H 125 H Total Protein Albumin TSH 09/14/18 09/14/18 09/14/18 06:51 07:08 07:08 RBC 2.83 L Hgb 8.7 L Hct 27.9 L MCV RDW 19.4 H Lymphocytes # 0.4 L Chloride 114 H BUN Glucose 181 H POC Glucose (mg/dL) 204 H Total Protein 5.0 L Albumin 2.9 L TSH 09/14/18 09/14/18 09/14/18 11:32 16:39 19:57 RBC Hgb Hct MCV RDW Lymphocytes # Chloride BUN Glucose POC Glucose (mg/dL) 144 H 198 H 196 H Total Protein Albumin TSH 09/15/18 09/15/18 09/15/18 06:58 08:28 08:28 RBC 2.84 L Hgb 9.0 L Hct 28.8 L MCV 101.2 H RDW 19.7 H Lymphocytes # 0.5 L Chloride 111 H BUN 20 H Glucose 192 H POC Glucose (mg/dL) 180 H Total Protein 5.3 L Albumin 3.1 L TSH 09/15/18 11:16 RBC Hgb Hct MCV RDW Lymphocytes # Chloride BUN Glucose POC Glucose (mg/dL) 122 H Total Protein Albumin TSH Assessment and Plan Assessment: Sleep disorder breathing and sleep apnea Severe morbid obesity B-cell lymphoma, diffuse extranodal site Intermittent episodes of bradycardia and tachyarrhythmias Chronic persistent asthma with mild exacerbation Baseline COPD Plan: Bronchodilator therapy in the form of nebulizer We will initiate BiPAP while in the hospital Polysomnogram an outpatient basis Issue and has been educated about exercise weight loss and inadequate sleep hygiene
[2018-09-15 16:42] LABS: Glucose,Whole Blood 233 mg/dL (75-99)
--- NOTE | 2018-09-15 19:27 | P.PN ---
Subjective Progress Note Date: 09/15/18 68-year-old female with a known history of diffuse large B cell lymphoma presents for her third cycle of chemotherapy or R-EPOCH which she has been tolerating quite well. Today she relates to no acute difficulties except she has fatigue and malaise that of an ongoing since she has been diagnosed. She does relate that she's had some difficulties with her skin with the subcutaneous lesions that develop. Occasionally do drain. She relates to no current difficulties just fevers chills rigors or sweats. The left groin is developed an area of swelling that is of concern. Because of this consultation was requested. This pleasant woman relates that she is not feeling poorly at this point in time. 09/15/2018 doing well today except feeling weak during the chemotherapy treatment , pulmonary to evaluate for sleep apnea. Objective - Vital Signs Vital signs: Vital Signs Temp 97.6 F 09/15/18 16:00 Pulse 46 L 09/15/18 17:02 Resp 17 09/15/18 16:00 BP 151/99 09/15/18 16:00 Pulse Ox 97 09/15/18 16:00 Intake & Output 09/15/18 09/15/18 09/16/18 06:59 18:59 06:59 Intake Total 1650 1472 Balance 1650 1472 Weight 123 kg Intake: Intake, IV Titration 1650 1472 Amount DOXOrubicin HCL 22 mg In 88 Sodium Chloride 0.9% 250 ml @ 10.875 mls/hr IV Q24H [facility] Rx#:[id number] Etoposide 110 mg In 168 Sodium Chloride 0.9% 500 ml 500 ml @ 21.063 mls/hr IV Q24H [facility] Rx#: [id number] Sodium Chloride 0.9% 1, 1650 1200 000 ml @ 150 mls/hr IV . Q6H40M [facility] Rx#:[id number] vinCRIStine SULFATE 0.9 16 mg In Sodium Chloride 0.9 % 50 ml @ 2.121 mls/hr IV Q24H [facility] Rx#:[id number] Other: Voiding Method Toilet # Voids 3 3 - Exam 68-year-old female who is in no acute distress at this point in time, this just come back from the washroom HEENT: Anicteric conjunctiva are pink and moist nasal mucosa grossly intact without significant lesions, there is no thrush. Poor dentition Neck: The neck is supple without significant lymphadenopathy or thyromegaly. Lungs: There is symmetrical bilateral air entry with expiratory wheezes that are scattered but no gail bronchial sounds are heard no dullness or egophony Heart: Regular rate and rhythm with an audible S1-S2, no S3 no S4. There is no significant murmur click or rub, PMI was nondisplaced. Abdomen: Obese, Positive bowel sounds soft and nontender without palpable masses or organomegaly. There was no guarding or rebound. Extremities: The upper extremities have excellent pulses they are symmetric, no significant petechiae or telangiectasia. No splinter hemorrhages were noted. Lower extremities have chronic bilateral lower extremity edema but no significant open ulcerations are seen. Right groin has evidence of a 1 cm mobile structure feels like a lymph node that is nontender. Left groin has evidence of a small mobile structure, smallet than yesterday It is nontender and there is no erythema to the site. Neuro: Awake alert oriented to person place and time. There are no acute new gross focal sensory motor deficits. Skin no evidence of rash or breakdown - Labs CBC & Chem 7: 09/15/18 08:28 09/15/18 08:28 Labs: Abnormal Lab Results - Last 24 Hours (Table) 09/14/18 09/15/18 09/15/18 Range/Units 19:57 06:58 08:28 RBC 2.84 L (3.80-5.40) m/uL Hgb 9.0 L (11.4-16.0) gm/dL Hct 28.8 L (34.0-46.0) % MCV 101.2 H (80.0-100.0) fL RDW 19.7 H (11.5-15.5) % Lymphocytes # 0.5 L (1.0-4.8) k/uL Chloride (98-107) mmol/L BUN (7-17) mg/dL Glucose (74-99) mg/dL POC Glucose (mg/dL) 196 H 180 H (75-99) mg/dL Total Protein (6.3-8.2) g/dL Albumin (3.5-5.0) g/dL 09/15/18 09/15/18 09/15/18 Range/Units 08:28 11:16 16:40 RBC (3.80-5.40) m/uL Hgb (11.4-16.0) gm/dL Hct (34.0-46.0) % MCV (80.0-100.0) fL RDW (11.5-15.5) % Lymphocytes # (1.0-4.8) k/uL Chloride 111 H (98-107) mmol/L BUN 20 H (7-17) mg/dL Glucose 192 H (74-99) mg/dL POC Glucose (mg/dL) 122 H 233 H (75-99) mg/dL Total Protein 5.3 L (6.3-8.2) g/dL Albumin 3.1 L (3.5-5.0) g/dL Laboratory Results WBC 5.5 k/uL (3.8-10.6) 09/15/18 08:28 RBC 2.84 m/uL (3.80-5.40) L 09/15/18 08:28 Hgb 9.0 gm/dL (11.4-16.0) L 09/15/18 08:28 Hct 28.8 % (34.0-46.0) L 09/15/18 08:28 MCV 101.2 fL (80.0-100.0) H 09/15/18 08:28 MCH 31.7 pg (25.0-35.0) 09/15/18 08:28 MCHC 31.3 g/dL (31.0-37.0) 09/15/18 08:28 RDW 19.7 % (11.5-15.5) H 09/15/18 08:28 Plt Count 417 k/uL (150-450) 09/15/18 08:28 Neutrophils % 81 % 09/15/18 08:28 Lymphocytes % 9 % 09/15/18 08:28 Monocytes % 9 % 09/15/18 08:28 Eosinophils % 0 % 09/15/18 08:28 Basophils % 0 % 09/15/18 08:28 Neutrophils # 4.4 k/uL (1.3-7.7) 09/15/18 08:28 Lymphocytes # 0.5 k/uL (1.0-4.8) L 09/15/18 08:28 Monocytes # 0.5 k/uL (0-1.0) 09/15/18 08:28 Eosinophils # 0.0 k/uL (0-0.7) 09/15/18 08:28 Basophils # 0.0 k/uL (0-0.2) 09/15/18 08:28 Hypochromasia Marked 09/15/18 08:28 Anisocytosis Slight 09/15/18 08:28 Macrocytosis Moderate 09/15/18 08:28 Sodium 142 mmol/L (137-145) 09/15/18 08:28 Potassium 4.5 mmol/L (3.5-5.1) 09/15/18 08:28 Chloride 111 mmol/L (98-107) H 09/15/18 08:28 Carbon Dioxide 25 mmol/L (22-30) 09/15/18 08:28 Anion Gap 6 mmol/L 09/15/18 08:28 BUN 20 mg/dL (7-17) H 09/15/18 08:28 Creatinine 0.61 mg/dL (0.52-1.04) 09/15/18 08:28 Est GFR (CKD-EPI)AfAm >90 (>60 ml/min/1.73 sqM) 09/15/18 08:28 Est GFR (CKD-EPI)NonAf >90 (>60 ml/min/1.73 sqM) 09/15/18 08:28 Glucose 192 mg/dL (74-99) H 09/15/18 08:28 POC Glucose (mg/dL) 233 mg/dL (75-99) H 09/15/18 16:40 POC Glu Hand [employer] Meat ID Martina Becker 09/15/18 16:40 Calcium 9.8 mg/dL (8.4-10.2) 09/15/18 08:28 Total Bilirubin 0.6 mg/dL (0.2-1.3) 09/15/18 08:28 AST 17 U/L (14-36) 09/15/18 08:28 ALT 17 U/L (9-52) 09/15/18 08:28 Alkaline Phosphatase 48 U/L (38-126) 09/15/18 08:28 Total Protein 5.3 g/dL (6.3-8.2) L 09/15/18 08:28 Albumin 3.1 g/dL (3.5-5.0) L 09/15/18 08:28 TSH 0.272 mIU/L (0.465-4.680) L 09/13/18 07:35 Free T4 1.23 ng/dL (0.78-2.19) 09/13/18 07:35 Assessment and Plan (1) Diffuse large B-cell lymphoma of extranodal site Current Visit: Yes Status: Acute Priority: High Code(s): C83.39 - DIFFUSE LARGE B-CELL LYMPHOMA, EXTRNOD AND SOLID ORGAN SITES SNOMED Code(s): 808928760 (2) Inguinal nodule Narrative/Plan: 68-year-old woman who has a history of diffuse large B-cell lymphoma undergoing her third cycle of chemotherapy which she's been tolerating modestly well. Physical evidence of the swelling to her left groin. The patient relates that she develops occasional subcutaneous nodules or abscesses that occasionally drain. The current swelling to the left groin is nontender. It's improving since coming to Hospital. She's having no fever or other difficulty. However distinct concerns given her significant altered immune system. A short course of minocycline will be utilized, should be better tolerated than other tetracyclines. The site will be monitored for any significant changes. If there is any drainage this should be cultured. 09/15/2018 site of swelling is much better, likely an enlarged lymph node which is now responding well to chemotherapy. Current Visit: Yes Status: Acute Priority: High Code(s): R19.09 - OTHER INTRA-ABDOMINAL AND PELVIC SWELLING, MASS AND LUMP SNOMED Code(s): 958146136
[2018-09-15] MEDS: ONDANSETRON 16 MG in SODIUM CHLORIDE 0.9% 50 ML IVPB SCH (20:14)
[2018-09-15] MEDS: FAMOTIDINE 20 MG/2 ML VIAL IV SCH (20:14)
[2018-09-15 20:16] LABS: Glucose,Whole Blood 180 mg/dL (75-99)
[2018-09-15] MEDS: MONTELUKAST 10 MG TAB PO SCH (20:29)
[2018-09-15] MEDS: ATORVASTATIN 40 MG TAB PO SCH (20:29)
[2018-09-15] MEDS: ETOPOSIDE IV SCH (21:33)
[2018-09-15] MEDS: VINCRISTINE SULFATE IV SCH (21:33)
[2018-09-15] MEDS: DOXORUBICIN HCL IV SCH (21:33)
[2018-09-15] MEDS: SODIUM CHLORIDE 0.9% IV SCH ×3 (21:33)
[2018-09-16] MEDS: HYDROcodone/APAP 10-325MG 1 EACH TAB PO PRN ×4 (02:34→22:45)
[2018-09-16] MEDS: SODIUM CHLORIDE 0.9% 1,000 ML IV SCH ×4 (02:36→21:39)
[2018-09-16] MEDS: BENZOCAINE/MENTHOL LOZENG 1 EACH LOZENGE MUCOUS MEM PRN ×2 (02:51→15:43)
[2018-09-16] MEDS: LEVOTHYROXINE 75 MCG TAB PO SCH (05:41)
[2018-09-16 07:08] LABS: Glucose,Whole Blood 195 mg/dL (75-99)
[2018-09-16] MEDS: SALT AND SODA MOUTHWASH 1,000 ML PO SCH ×4 (08:09→21:39)
[2018-09-16] MEDS: LISINOPRIL 5 MG TAB PO SCH (08:09)
[2018-09-16] MEDS: predniSONE 10 MG TAB PO SCH ×2 (08:09→20:20)
[2018-09-16] MEDS: CYANOCOBALAMIN 500 MCG TAB PO SCH (08:09)
[2018-09-16] MEDS: GLIMEPIRIDE 1 MG TAB PO SCH (08:10)
[2018-09-16] MEDS: ACYCLOVIR 200 MG CAP PO SCH ×2 (08:10→17:26)
[2018-09-16] MEDS: predniSONE 50 MG TAB PO SCH ×2 (08:10→20:20)
[2018-09-16] MEDS: MINOCYCLINE 50 MG CAP PO SCH ×2 (08:10→20:19)
[2018-09-16] MEDS: INSULIN ASPART 100 UNIT/ML 1 ML 10 ML VIAL SQ SCH ×4 (08:10→21:05)
[2018-09-16] MEDS: PANTOPRAZOLE 40 MG TABLET PO SCH ×2 (08:10→17:26)
[2018-09-16] MEDS: IPRATROPIUM-ALBUTEROL 3 ML NEB INHALATION SCH ×4 (08:18→20:38)
[2018-09-16] MEDS: SYMBICORT 80-4.5 MCG INHALER INHALATION SCH ×2 (08:18→20:38)
[2018-09-16 10:07] LABS: Anisocytosis Slight; Basophils % (A) 0 %; Eosinophils % (A) 1 %; HCT 26.5 % (34.0-46.0); Hypochromasia Moderate; Lymphocytes # (A) 0.2 k/uL (1.0-4.8); Lymphocytes % (A) 7 %; MCH 29.7 pg (25.0-35.0); MCHC 30.4 g/dL (31.0-37.0); MCV 97.9 fL (80.0-100.0); Macrocytosis Slight; Mean Platelet Volume 6.8; Monocytes # (A) 0.1 k/uL (0-1.0); Monocytes % (A) 4 %; Neutrophils # (A) 2.9 k/uL (1.3-7.7); Neutrophils % (A) 88 %; Platelet Count 398 k/uL (150-450); RDW 18.7 % (11.5-15.5); WBC 3.3 k/uL (3.8-10.6)
[2018-09-16 10:25] LABS: ALT 21 U/L (9-52); AST 14 U/L (14-36); Alkaline Phosphatase 44 U/L (38-126); Anion Gap 5 mmol/L; Blood Urea Nitrogen 20 mg/dL (7-17); Calcium 9.6 mg/dL (8.4-10.2); Carbon Dioxide 25 mmol/L (22-30); Chloride 111 mmol/L (98-107); Glucose 200 mg/dL (74-99); Potassium 4.6 mmol/L (3.5-5.1); Sodium 141 mmol/L (137-145); Total Bilirubin 0.7 mg/dL (0.2-1.3); Total Protein 4.9 g/dL (6.3-8.2)
[2018-09-16 11:37] LABS: Glucose,Whole Blood 137 mg/dL (75-99)
[2018-09-16] MEDS: MECLIZINE 25 MG TAB PO PRN (11:47)
[2018-09-16] MEDS: FAMOTIDINE 20 MG/2 ML VIAL IV SCH (12:02)
--- NOTE | 2018-09-16 13:56 | P.PN ---
Subjective Progress Note Date: 09/16/18 Principal diagnosis: Diffuse Large B Cell Lymphoma on Chemotherapy. Dylon is tolerating chemotherapy well. Cardiology and ID are following. She should complete treatment tonight or early am. Left thigh swelling is improving , she was started on antibiotics incase underlying abscess/cystic infection with her compromised immune system, although likely differential is enlarged lymph node after response to treatment. Objective - Vital Signs Vital signs: Vital Signs Temp 98 F 09/16/18 11:45 Pulse 52 L 09/16/18 12:11 Resp 17 09/16/18 11:45 BP 143/57 09/16/18 11:45 Pulse Ox 98 09/16/18 11:45 Intake & Output 09/15/18 09/16/18 09/16/18 18:59 06:59 18:59 Intake Total 1472 1200 1800 Balance 1472 1200 1800 Weight 117.21 kg Intake: Intake, IV Titration 1472 1200 1200 Amount DOXOrubicin HCL 22 mg In 88 Sodium Chloride 0.9% 250 ml @ 10.875 mls/hr IV Q24H [facility] Rx#:[id number] Etoposide 110 mg In 168 Sodium Chloride 0.9% 500 ml 500 ml @ 21.063 mls/hr IV Q24H [facility] Rx#: [id number] Sodium Chloride 0.9% 1, 1200 1200 1200 000 ml @ 150 mls/hr IV . Q6H40M [facility] Rx#:[id number] vinCRIStine SULFATE 0.9 16 mg In Sodium Chloride 0.9 % 50 ml @ 2.121 mls/hr IV Q24H [facility] Rx#:[id number] Oral 600 Other: Voiding Method Toilet Toilet # Voids 3 1 2 # Bowel Movements 1 - Exam Constitutional General appearance: Present: cooperative, morbidly obese, no acute distress - EENT Eyes: Present: anicteric sclerae, EOMI ENT: Present: normal oropharynx - Respiratory Respiratory: bilateral: CTA - Cardiovascular Heart sounds: normal: S1, S2 Abnormal Heart Sounds: Present: systolic murmur - Peripheral edema leg Peripheral Edema: bilateral: Trace - Gastrointestinal General gastrointestinal: Present: normal bowel sounds, soft - Integumentary Integumentary: Present: normal turgor - Neurologic Neurologic: Present: CNII-XII intact - Musculoskeletal Musculoskeletal: Present: strength equal bilaterally - Psychiatric Psychiatric: Present: A&O x's 3, appropriate affect, intact judgment & insight - Labs CBC & Chem 7: 09/16/18 09:39 09/16/18 09:39 Labs: Abnormal Lab Results - Last 24 Hours (Table) 09/15/18 09/15/18 09/16/18 Range/Units 16:40 20:15 07:06 WBC (3.8-10.6) k/uL RBC (3.80-5.40) m/uL Hgb (11.4-16.0) gm/dL Hct (34.0-46.0) % MCHC (31.0-37.0) g/dL RDW (11.5-15.5) % Lymphocytes # (1.0-4.8) k/uL Chloride (98-107) mmol/L BUN (7-17) mg/dL Glucose (74-99) mg/dL POC Glucose (mg/dL) 233 H 180 H 195 H (75-99) mg/dL Total Protein (6.3-8.2) g/dL Albumin (3.5-5.0) g/dL 09/16/18 09/16/18 09/16/18 Range/Units 09:39 09:39 11:36 WBC 3.3 L (3.8-10.6) k/uL RBC 2.70 L (3.80-5.40) m/uL Hgb 8.0 L (11.4-16.0) gm/dL Hct 26.5 L (34.0-46.0) % MCHC 30.4 L (31.0-37.0) g/dL RDW 18.7 H (11.5-15.5) % Lymphocytes # 0.2 L (1.0-4.8) k/uL Chloride 111 H (98-107) mmol/L BUN 20 H (7-17) mg/dL Glucose 200 H (74-99) mg/dL POC Glucose (mg/dL) 137 H (75-99) mg/dL Total Protein 4.9 L (6.3-8.2) g/dL Albumin 3.0 L (3.5-5.0) g/dL Assessment and Plan Plan: Assessment and Plan (1) Inguinal nodule Narrative/Plan: - Nearly resolved, ID treating with minocycline - Likely differential response to treatment, underlying enlarged lymph node - Check Uric Acid Current Visit: Yes Status: Acute Priority: High Code(s): R19.09 - OTHER INTRA-ABDOMINAL AND PELVIC SWELLING, MASS AND LUMP SNOMED Code(s): 477280231 (2) Diffuse large B-cell lymphoma of extranodal site Narrative/Plan: - Cont CIVI chemo without adjustment - Supportive meds as ordered - CBC, CMP Labs daily - GI/DVT prophylaxis - PCP following for Medical Mgmt - Cardiology for arrhythmia following and monitoring - Pulm for sleep apnea - ID for potential of superficial infectious boils Current Visit: Yes Status: Acute Priority: High Code(s): C83.39 - DIFFUSE LARGE B-CELL LYMPHOMA, EXTRNOD AND SOLID ORGAN SITES SNOMED Code(s): 747232972 (3) Bradyarrhythmia Narrative/Plan: - Cont telelmetry monitoring while on chemo. - Dr. Solorio has seen pt and she is going to be evaluated for c-pap Current Visit: No Status: Acute Priority: High Code(s): I49.8 - OTHER SPECIFIED CARDIAC ARRHYTHMIAS SNOMED Code(s): 511038591 (4) Chronic pain syndrome Current Visit: No Status: Chronic Priority: Low Code(s): G89.4 - CHRONIC PAIN SYNDROME SNOMED Code(s): 113085688 (5) Antineoplastic chemotherapy induced anemia Narrative/Plan: - Mild, expected, no acute intervention, daily CBC Current Visit: Yes Status: Acute Priority: Medium Code(s): D64.81 - ANEMIA DUE TO ANTINEOPLASTIC CHEMOTHERAPY; T45.1X5A - ADVERSE EFFECT OF ANTINEOPLASTIC AND IMMUNOSUP DRUGS, INIT SNOMED Code(s): 741499098 Plan: Anticipate DC after completion of chemo Follow up appt in chart for CBC and GCSF on Wednesday in office Almita Wiggins NP Physician Attestation: I have completed the full history and physicial of this patient and agree with above dictation by Almita Wiggins NP Dictated as a scribe.
[2018-09-16 16:46] LABS: Glucose,Whole Blood 194 mg/dL (75-99)
--- NOTE | 2018-09-16 16:56 | P.DS ---
Providers Date of admission: 09/12/18 07:48 Expected date of discharge: 09/16/18 (After compltion of chemotherapy) Attending physician: Kvng Mosquera Consults: 09/12/18 08:36 Consult Physician Routine Consulting Provider: Padilla Santiago Consult Reason/Comments: Medical management Do you want consulting provider notified?: Yes Placement Type Exists?: Yes 09/13/18 08:33 Consult Physician Routine Consulting Provider: Nereida Medel Consult Reason/Comments: increased heart rate Do you want consulting provider notified?: Already Contacted 09/14/18 09:45 Consult Physician Routine Consulting Provider: Padilla Hess Consult Reason/Comments: abx recommendations, mult abx allergies Do you want consulting provider notified?: Already Contacted 09/14/18 13:24 Consult Physician Routine Consulting Provider: Josiah Solorio Consult Reason/Comments: Known pt, Cardiology suspect arrthymia secondary to apnea, pt needs c-pap Do you want consulting provider notified?: Yes Primary care physician: Stated None Hospital Course: Timed Chemotherapy, Monitoring of labs, Cardiology and pulmonary seen for irregular heart. Patient Condition at Discharge: Good Plan - Discharge Summary Discharge Rx Participant: No New Discharge Prescriptions: New Acetaminophen Tab [Tylenol] 325 mg PO HS PRN tab PRN Reason: Mild Pain Benzocaine/Menthol Lozeng [Cepacol lozenge] 1 each MUCOUS MEM Q4HR PRN lozenge PRN Reason: Sore Throat Ipratropium-Albuterol Nebulize [Duoneb 0.5 mg-3 mg/3 ml Soln] 3 ml INHALATION RT-Q2H PRN ampul.neb PRN Reason: Shortness Of Breath Or Wheezing Minocycline [Minocin] 100 mg PO Q12HR #20 cap Continue Simvastatin [Zocor] 80 mg PO HS Zafirlukast [Accolate] 20 mg PO BID Ergocalciferol [Vitamin D2 (DRISDOL)] 50,000 unit PO MO Levothyroxine Sodium [Synthroid] 150 mcg PO QAM Glimepiride [Amaryl] 1 mg PO AC-BRKFST rOPINIRole HCL [Requip] 0.5 mg PO HS Acyclovir 400 mg PO AC-BID #60 tablet Meclizine [Antivert] 25 mg PO TID PRN #14 tab PRN Reason: Vertigo Pantoprazole [Protonix] 40 mg PO AC-BID #60 tablet. Cyanocobalamin (Vitamin B-12) [Vitamin B-12] 1,000 mcg PO DAILY HYDROcodone/APAP 10-325MG [Cord 10-325] 1 tab PO Q6H PRN PRN Reason: Pain Lisinopril [Zestril] 5 mg PO DAILY Artificial Tears-Hypromellose [Artificial Tear Drops] 1 drops BOTH EYES QID PRN bottle PRN Reason: Dry Eye(S) Fluticasone/Salmeterol [Advair 250-50 Diskus] 2 puff INHALATION RT-BID Discharge Medication List Simvastatin [Zocor] 80 mg PO HS 03/21/14 [History] Zafirlukast [Accolate] 20 mg PO BID 03/21/14 [History] Ergocalciferol [Vitamin D2 (DRISDOL)] 50,000 unit PO MO 10/09/14 [History] Levothyroxine Sodium [Synthroid] 150 mcg PO QAM 10/09/14 [History] Glimepiride [Amaryl] 1 mg PO AC-BRKFST 10/08/15 [History] rOPINIRole HCL [Requip] 0.5 mg PO HS 08/04/17 [History] Acyclovir 400 mg PO AC-BID #60 tablet 08/07/18 [Rx] Meclizine [Antivert] 25 mg PO TID PRN #14 tab 08/07/18 [Rx] Pantoprazole [Protonix] 40 mg PO AC-BID #60 tablet. 08/07/18 [Rx] Cyanocobalamin (Vitamin B-12) [Vitamin B-12] 1,000 mcg PO DAILY 08/22/18 [ History] HYDROcodone/APAP 10-325MG [Cord 10-325] 1 tab PO Q6H PRN 08/22/18 [History] Lisinopril [Zestril] 5 mg PO DAILY 08/22/18 [History] Artificial Tears-Hypromellose [Artificial Tear Drops] 1 drops BOTH EYES QID PRN bottle 08/26/18 [Rx] Fluticasone/Salmeterol [Advair 250-50 Diskus] 2 puff INHALATION RT-BID 09/12/18 [History] Acetaminophen Tab [Tylenol] 325 mg PO HS PRN tab 09/16/18 [Rx] Benzocaine/Menthol Lozeng [Cepacol lozenge] 1 each MUCOUS MEM Q4HR PRN lozenge 09/16/18 [Rx] Ipratropium-Albuterol Nebulize [Duoneb 0.5 mg-3 mg/3 ml Soln] 3 ml INHALATION RT -Q2H PRN ampul.neb 09/16/18 [Rx] Minocycline [Minocin] 100 mg PO Q12HR #20 cap 09/16/18 [Rx] Follow up Appointment(s)/Referral(s): [facility] [NON-STAFF] - 1 Week Padilla Santiago MD [STAFF PHYSICIAN] - 09/29/18 9:30 am Josiah Solorio MD [STAFF PHYSICIAN] - 1 Week Raheel Peralta MD [STAFF PHYSICIAN] - 09/19/18 11:00 am Discharge Disposition: HOME SELF-CARE
--- NOTE | 2018-09-16 17:10 | P.PN ---
Subjective Progress Note Date: 09/16/18 Principal diagnosis: Sleep disorder breathing and sleep apnea, B-cell lymphoma, intermittent episodes of bradycardia and tachyarrhythmias, morbid obesity, severe COPD with exacerbation, 09/16/2018, patient seen eval examined during the rounds clinically patient has a been slightly doing better has been at getting chemotherapy, patient has tolerated the BiPAP machine for 4-6 hour last night feels better, patient would like a mass to be re-adjusted, patient is being scheduled for polysomnogram and on outpatient setting Objective - Vital Signs Vital signs: Vital Signs Temp 97.9 F 09/16/18 16:00 Pulse 59 L 09/16/18 16:00 Resp 17 09/16/18 16:00 BP 158/65 09/16/18 16:00 Pulse Ox 97 09/16/18 16:00 Intake & Output 09/15/18 09/16/18 09/16/18 18:59 06:59 18:59 Intake Total 1472 1200 1800 Balance 1472 1200 1800 Weight 117.21 kg Intake: Intake, IV Titration 1472 1200 1200 Amount DOXOrubicin HCL 22 mg In 88 Sodium Chloride 0.9% 250 ml @ 10.875 mls/hr IV Q24H JOVANNY Rx#:[id number] Etoposide 110 mg In 168 Sodium Chloride 0.9% 500 ml 500 ml @ 21.063 mls/hr IV Q24H JOVANNY Rx#: [id number] Sodium Chloride 0.9% 1, 1200 1200 1200 000 ml @ 150 mls/hr IV . Q6H40M JOVANNY Rx#:[id number] vinCRIStine SULFATE 0.9 16 mg In Sodium Chloride 0.9 % 50 ml @ 2.121 mls/hr IV Q24H JOVANNY Rx#:[id number] Oral 600 Other: Voiding Method Toilet Toilet # Voids 3 1 2 # Bowel Movements 1 - Exam - Constitutional General appearance: Present: cooperative, morbidly obese, no acute distress - EENT Eyes: Present: anicteric sclerae, EOMI ENT: Present: normal oropharynx - Respiratory Respiratory: bilateral: CTA - Cardiovascular Heart sounds: normal: S1, S2 Abnormal Heart Sounds: Present: systolic murmur - Peripheral edema leg Peripheral Edema: bilateral: Trace - Gastrointestinal General gastrointestinal: Present: normal bowel sounds, soft - Integumentary Integumentary: Present: normal turgor - Neurologic Neurologic: Present: CNII-XII intact - Musculoskeletal Musculoskeletal: Present: strength equal bilaterally - Psychiatric Psychiatric: Present: A&O x's 3, appropriate affect, intact judgment & insight - Labs CBC & Chem 7: 09/16/18 09:39 09/16/18 09:39 Labs: Abnormal Lab Results - Last 24 Hours (Table) 09/15/18 09/16/18 09/16/18 Range/Units 20:15 07:06 09:39 WBC 3.3 L (3.8-10.6) k/uL RBC 2.70 L (3.80-5.40) m/uL Hgb 8.0 L (11.4-16.0) gm/dL Hct 26.5 L (34.0-46.0) % MCHC 30.4 L (31.0-37.0) g/dL RDW 18.7 H (11.5-15.5) % Lymphocytes # 0.2 L (1.0-4.8) k/uL Chloride (98-107) mmol/L BUN (7-17) mg/dL Glucose (74-99) mg/dL POC Glucose (mg/dL) 180 H 195 H (75-99) mg/dL Total Protein (6.3-8.2) g/dL Albumin (3.5-5.0) g/dL 09/16/18 09/16/18 09/16/18 Range/Units 09:39 11:36 16:45 WBC (3.8-10.6) k/uL RBC (3.80-5.40) m/uL Hgb (11.4-16.0) gm/dL Hct (34.0-46.0) % MCHC (31.0-37.0) g/dL RDW (11.5-15.5) % Lymphocytes # (1.0-4.8) k/uL Chloride 111 H (98-107) mmol/L BUN 20 H (7-17) mg/dL Glucose 200 H (74-99) mg/dL POC Glucose (mg/dL) 137 H 194 H (75-99) mg/dL Total Protein 4.9 L (6.3-8.2) g/dL Albumin 3.0 L (3.5-5.0) g/dL Assessment and Plan Assessment: Sleep disorder breathing and sleep apnea Severe morbid obesity B-cell lymphoma, diffuse extranodal site Intermittent episodes of bradycardia and tachyarrhythmias Chronic persistent asthma with mild exacerbation Baseline COPD Plan: Bronchodilator therapy in the form of nebulizer We will initiate BiPAP while in the hospital Polysomnogram an outpatient basis Issue and has been educated about exercise weight loss and inadequate sleep hygiene Time with Patient: Greater than 30
[2018-09-16] MEDS: ATORVASTATIN 40 MG TAB PO SCH (20:18)
[2018-09-16] MEDS: MONTELUKAST 10 MG TAB PO SCH (20:20)
[2018-09-16 20:37] LABS: Glucose,Whole Blood 194 mg/dL (75-99)
[2018-09-16] MEDS ORDERED: CYCLOPHOSPHAMIDE IV ONE (21:00)
[2018-09-16] MEDS ORDERED: SODIUM CHLORIDE 0.9% IV ONE (21:00)
[2018-09-16 21:27] VITALS: BP 155/64; PULSE 56; RESP 16; TEMP 98.1
== END 2018-09-16 23:22 | disposition home or self-care (01) | DRG 847 ==
LOC: 3NMEDONC 07:48
PROVIDERS: ADMIT Internal Medicine Hematology & Oncology; ATTEND Internal Medicine Hematology & Oncology
DX: Z51.11 Encounter for antineoplastic chemotherapy (principal); J44.1 Chronic obstructive pulmonary disease with (acute) exacerbation; J45.31 Mild persistent asthma with (acute) exacerbation; K50.90 Crohn's disease, unspecified, without complications; C83.35 Diffuse large B-cell lymphoma, lymph nodes of inguinal region and lower limb; Z68.41 Body mass index [BMI] 40.0-44.9, adult; C83.39 Diffuse large B-cell lymphoma, extranodal and solid organ sites; G89.4 Chronic pain syndrome; D64.81 Anemia due to antineoplastic chemotherapy; E03.9 Hypothyroidism, unspecified; E11.9 Type 2 diabetes mellitus without complications; E66.01 Morbid (severe) obesity due to excess calories; E78.5 Hyperlipidemia, unspecified; G47.33 Obstructive sleep apnea (adult) (pediatric); H91.90 Unspecified hearing loss, unspecified ear; I10 Essential (primary) hypertension; I25.10 Atherosclerotic heart disease of native coronary artery without angina pectoris; I49.5 Sick sinus syndrome; K21.9 Gastro-esophageal reflux disease without esophagitis; L02.224 Furuncle of groin; T45.1X5A Adverse effect of antineoplastic and immunosuppressive drugs, initial encounter; M25.511 Pain in right shoulder; M54.2 Cervicalgia; M54.5 Low back pain; Z96.652 Presence of left artificial knee joint; Z88.6 Allergy status to analgesic agent; Z88.1 Allergy status to other antibiotic agents; Z88.8 Allergy status to other drugs, medicaments and biological substances; Z79.84 Long term (current) use of oral hypoglycemic drugs; Z79.890 Hormone replacement therapy; Z79.899 Other long term (current) drug therapy; Z98.84 Bariatric surgery status; Z95.1 Presence of aortocoronary bypass graft; Z87.891 Personal history of nicotine dependence; Z86.010 Personal history of colon polyps; Z81.1 Family history of alcohol abuse and dependence; Z80.1 Family history of malignant neoplasm of trachea, bronchus and lung; Z98.51 Tubal ligation status; Z90.49 Acquired absence of other specified parts of digestive tract
CPT/HCPCS: 80053; 83615; 84439; 84443; 84550; 85025; 93005; 94640; 94660

== ENCOUNTER → 2018-09-21 | Outpatient (CLI) | payer MEDICARE, OTHER ==
--- NOTE | 2018-09-22 10:03 | ECHOF ---
Referral Reason:C83.39 Lymphoma Z01.818 Chemo MEASUREMENTS -------- HEIGHT: 160.0 cm WEIGHT: 129.3 kg BP: RVIDd: 2.6 cm (< 3.3) IVSd: 1.1 cm (0.6 - 1.1) LVIDd: 5.4 cm (3.9 - 5.3) LVPWd: 1.1 cm (0.6 - 1.1) IVSs: 1.3 cm LVIDs: 4.7 cm LVPWs: 1.4 cm LAESV Index (A-L): 28.14 ml/m Ao Diam: 3.2 cm (2.0 - 3.7) AV Cusp: 1.7 cm (1.5 - 2.6) LA Diam: 3.0 cm (2.7 - 3.8) MV EXCURSION: 24.295 mm (> 18.000) MV EF SLOPE: 51 mm/s (70 - 150) EPSS: 1.4 cm MV E Serge: 0.97 m/s MV DecT: 363 ms MV A Serge: 1.14 m/s MV E/A Ratio: 0.85 RAP: 5.00 mmHg RVSP: 35.72 mmHg FINDINGS -------- Sinus rhythm. This was a technically adequate study. The left ventricle is mildly dilated. There is mild concentric left ventricular hypertrophy. Ther e is mild global hypokinesis of LV . Overall left ventricular systolic function is mild-moderately impaired with, an EF between 40 - 45 %. The right ventricle is normal in size and function. LA is midly dilated 29-33ml/m2. RA appears enlarged. There is mild aortic valve sclerosis. Trace amount of aortic regurgitation. There is no evidence of aortic stenosis. The mitral valve leaflets are mildly thickened. Mild mitral annular calcification present. Mild-t o-moderate mitral regurgitation is present. [id number] tricuspid regurgitation present. There is borderline pulmonary hypertension. The right ventricular systolic pressure, as measured by Doppler, is 35.72mmHg. The pulmonic valve was not well visualized. The aortic root size is normal. Normal inferior vena cava with normal inspiratory collapse consistent with estimated right atrial pre ssure of 5 mmHg. There is no pericardial effusion. CONCLUSIONS -------- 1. Sinus rhythm. 2. This was a technically adequate study. 3. The left ventricle is mildly dilated. 4. There is mild concentric left ventricular hypertrophy. 5. There is mild global hypokinesis of LV . 6. Overall left ventricular systolic function is mild-moderately impaired with, an EF between 40 - 45 %. 7. LA is midly dilated 29-33ml/m2. 8. RA appears enlarged. 9. There is mild aortic valve sclerosis. 10. Trace amount of aortic regurgitation. 11. There is no evidence of aortic stenosis. 12. The mitral valve leaflets are mildly thickened. 13. Mild mitral annular calcification present. 14. [id number] mitral regurgitation is present. 15. Euas-ws-jewovtuf tricuspid regurgitation present. 16. There is borderline pulmonary hypertension. 17. The right ventricular systolic pressure, as measured by Doppler, is 35.72mmHg. 18. The pulmonic valve was not well visualized. 19. The aortic root size is normal. 20. There is no pericardial effusion. FURNACE PUNCHER: Mayo Robert RDCS
== END | disposition home or self-care (01) ==
LOC: RADECHMAIN 11:20
PROVIDERS: ATTEND Internal Medicine Hematology & Oncology
DX: Z01.818 Encounter for other preprocedural examination (principal); C83.39 Diffuse large B-cell lymphoma, extranodal and solid organ sites; I27.20 Pulmonary hypertension, unspecified; I08.1 Rheumatic disorders of both mitral and tricuspid valves; Z88.1 Allergy status to other antibiotic agents; Z88.8 Allergy status to other drugs, medicaments and biological substances
CPT/HCPCS: 93306

== ENCOUNTER → 2018-09-24 | Outpatient (CLI) | payer MEDICARE, OTHER | LOC: RADPETMAIN 08:09 | PROVIDERS: ATTEND Internal Medicine Hematology & Oncology | DX: Z53.9 Procedure and treatment not carried out, unspecified reason (principal) ==

== ENCOUNTER 2018-09-29 07:00 | Day surgery (SDC) | payer MEDICARE, OTHER ==
[2018-09-28 08:47] VITALS: BMI 47.8
[~2018-09-29 07:00] MED LIST changes: +DEXAMETHASONE SOD PHOSPHATE 10 MG/ML 1 ML VIAL IV ONE; +FAMOTIDINE 20 MG/2 ML VIAL IV ONE; +HYDROmorphone 0.5 MG/0.5 ML SYRINGE IVP PRN; +LACTATED RINGERS 1,000 ML IV SCH; +LIDOCAINE 1% 20 ML VIAL (10MG/ML) FOR IV START INTRADERMA PRN; +MIDAZOLAM (PF) 2 MG/2 ML VIAL IV PRN; +ONDANSETRON 4 MG/2 ML VIAL IVP ONE; -PEGFILGRASTIM 6 MG/0.6 ML SYRINGE SQ ONE; +fentaNYL (PF) 50 MCG/ML 2 ML AMP IV PRN
[2018-09-29 07:51] LABS: Glucose,Whole Blood 105 mg/dL (75-99)
[2018-09-29] MEDS ORDERED: PROPOFOL 10 MG/ML 20 ML VIAL IV ONE (09:25)
[2018-09-29] MEDS ORDERED: LIDOCAINE 1% INJ 10MG/ML (20 ML MDV) ONE (09:25)
[2018-09-29] MEDS ORDERED: MIDAZOLAM 2 MG/2 ML VIAL ONE (09:25)
[2018-09-29] MEDS ORDERED: OXYMETAZOLINE 0.05% NASL SPRAY 1 SPRAY BOTTLE MISCELLANE ONE (09:49)
[2018-09-29 10:18] VITALS: TEMP 97.3
--- NOTE | 2018-09-29 10:35 | P.OP ---
Date of Procedure: 09/29/18 Preoperative Diagnosis: Chronic otitis media with effusion right ear chronic otitis media with effusion right ear eustachian tube dysfunction right ear polyp conductive hearing loss right tympanic membrane perforation right retained tympanostomy tube right ear Postoperative Diagnosis: Same Procedure(s) Performed: Right direct microscopic tympanostomy and removal of retained tube Removal of right aural polyp Right tympanoplasty with lysis of middle ear adhesions Right tympanostomy and tube placement utilizing a triune tube Indications for Procedure: This patient has had a persistent eustachian tube dysfunction and is currently undergoing treatment for lymphoma. Her blood counts have been stable with chemotherapy. She has hearing loss in the right ear with a polyp retained tube and middle ear effusion. Removal of the tube and polyp along with correcting the hepatic membrane perforation and placement of a new tube is recommended. All risks, benefits, and alternative therapies were discussed. Consent was obtained and all questions were answered. Operative Findings: Patient had a polyp on the right side with retained tube a perforated eardrum with middle ear adhesions and a middle ear effusion was noted Description of Procedure: This patient was taken to the operative room and placed in a supine position. IV sedation was administered and the right ureter was visualized with a 250 mm Leica microscope. Cerumen and epithelial debris was removed from the external auditory canal. The eardrum was visualized with a high-powered scope and with use of a myringotomy blade an incision was made surrounding a retained tube and was removed and there is a perforation that was present post tube removal. In addition there was a polyp seen on the drum which was removed with use of a suction. After the polyp was removed and the whole was visualized fluid was suctioned from the middle ear space. We made an incision on the contralateral side of the tympanic membrane and a myringotomy was placed in that location and a tube utilizing a triune tube was in place. After the 2 was placed we visualized this perforation and made a tympanomeatal flap incision lifting the annulus entering the middle ear. There was multiple middle ear adhesions we lysed those adhesions. We prepped the drumhead and utilize a bio design graft as an underlay. We used for the bio design graft material to shore up the graft and placed the tympanomeatal flap back into position. The patient had Gelfoam placed into the ear canal and a cotton ball was placed. To summarize a polyp was removed in the right ear along with a retained tube we did a tympanoplasty to repair the perforation and lysed multiple middle ear adhesions. We did also place a tube in the right ear utilizing a triune tube. The patient tolerated this well and a follow-up is scheduled for 1 week.
[2018-09-29 10:39] VITALS: RESP 16
[2018-09-29 10:52] LABS: Glucose,Whole Blood 148 mg/dL (75-99)
[2018-09-29 10:59] VITALS: BP 111/66; PULSE 65
== END 2018-09-29 11:20 | disposition home or self-care (01) ==
LOC: OR 07:00
PROVIDERS: ATTEND Otolaryngology
DX: H65.491 Other chronic nonsuppurative otitis media, right ear (principal); H69.83 Other specified disorders of Eustachian tube, bilateral; H90.11 Conductive hearing loss, unilateral, right ear, with unrestricted hearing on the contralateral side; H72.91 Unspecified perforation of tympanic membrane, right ear; C85.90 Non-Hodgkin lymphoma, unspecified, unspecified site; H74.41 Polyp of right middle ear; H74.11 Adhesive right middle ear disease; H91.22 Sudden idiopathic hearing loss, left ear; T85.618A Breakdown (mechanical) of other specified internal prosthetic devices, implants and grafts, initial encounter; I25.10 Atherosclerotic heart disease of native coronary artery without angina pectoris; K21.9 Gastro-esophageal reflux disease without esophagitis; M19.90 Unspecified osteoarthritis, unspecified site; E11.9 Type 2 diabetes mellitus without complications; J44.9 Chronic obstructive pulmonary disease, unspecified; G47.33 Obstructive sleep apnea (adult) (pediatric); L30.9 Dermatitis, unspecified; E78.00 Pure hypercholesterolemia, unspecified; I10 Essential (primary) hypertension; E66.9 Obesity, unspecified; Z68.42 Body mass index [BMI] 45.0-49.9, adult; G47.30 Sleep apnea, unspecified; E07.9 Disorder of thyroid, unspecified; Z87.891 Personal history of nicotine dependence; Z98.84 Bariatric surgery status; Z95.1 Presence of aortocoronary bypass graft; Z79.84 Long term (current) use of oral hypoglycemic drugs; Z79.2 Long term (current) use of antibiotics; Z79.890 Hormone replacement therapy; Z79.891 Long term (current) use of opiate analgesic; Z79.51 Long term (current) use of inhaled steroids; Z79.899 Other long term (current) drug therapy; Z88.1 Allergy status to other antibiotic agents; Z88.8 Allergy status to other drugs, medicaments and biological substances; Z91.09 Other allergy status, other than to drugs and biological substances
CPT/HCPCS: 69631; C1763; J2250; J1100; J2405; J2001; J2704

== ENCOUNTER → 2018-10-01 | Outpatient (CLI) | payer MEDICARE, OTHER ==
--- NOTE | 2018-10-04 16:22 | PE ---
EXAMINATION TYPE: PET CT fusion skull to thigh DATE OF EXAM: 10/01/2018 COMPARISON: PET/CT dated 08/04/[address] abdomen pelvis dated 05/20/2018 HISTORY: Lymphoma. Follow-up exam. Surveillance. Chemotherapy with last treatment on 09/12/2018. TECHNIQUE: Following the intravenous administration of 11.12 mCi of F-18 FDG, whole body images are performed from the skull base to the midthigh. Images are reviewed on the computer in the coronal, a xial, and sagittal planes. Reconstructed rotating images are created on independent workstation and reviewed on the computer. A localization and attenuation correction CT is performed in conjunction with the PET scan. SCAN: Subsequent, second at this institution FINDINGS: Abdominal background: 2.5 Mediastinal background: 2.8 SKULL BASE AND NECK: No suspicious hypermetabolic uptake. CHEST, MEDIASTINUM, AND HILAR REGION: No suspicious hypermetabolic uptake. ABDOMEN AND PELVIS: No suspicious hypermetabolic uptake. OSSEOUS STRUCTURES: Diffuse FDG avidity. Hypermetabolic activity is seen diffusely such as within the cervical spine with a maximum SUV of 3.2, within the thoracic spine with a maximum SUV of 4.2, and w ithin the lumbar spine with a maximum SUV of 4.8. OTHER CT: There is near complete opacification of the left maxillary sinus and scant fluid within the right mastoid air cells. Mild degenerative changes of the cervical spine are noted. No new suspiciou s osseous lesion. There is redemonstration of a right-sided Mediport and post CABG changes of the chest. Right arthropl asty is partially visualized. Heart is enlarged without pericardial effusion. Calcified benign right lower lobe granuloma is again noted. No new suspicious pulmonary nodule or mass. Calcified benign hep atic granuloma is seen. Small hiatal hernia and postsurgical changes of a prior partial gastrectomy a re present. Chronic nodular thickening of the adrenal glands although similar back to 2011. Bilateral renal cysts are again noted. Gallbladder is surgically absent. There is sigmoid diverticulosis. There is resolution of the previously seen phlegmonous changes in the right lower quadrant. Multiple anastomotic site are seen within the bowel. The previously noted right lower quadrant lymph nodes adj acent to bowel on the prior exam is no longer measurable on today's examination. Exam is slightly espinal ited secondary to lack of contrast. IMPRESSION: 1. Response to treatment. No measurable residual adenopathy is seen within the right lower quadrant. No new adenopathy in the chest, abdomen, or pelvis. No hypermetabolic lymph nodes. 2. Diffuse osseous FDG avidity likely represents bone marrow stimulation/therapy related hyperplastic bone marrow of chemotherapy.
== END | disposition home or self-care (01) ==
LOC: RADPETMAIN 09:56
PROVIDERS: ATTEND Internal Medicine Hematology & Oncology
DX: C83.39 Diffuse large B-cell lymphoma, extranodal and solid organ sites (principal)
CPT/HCPCS: 78815; A9552

== ENCOUNTER 2018-10-17 07:41 | Inpatient (IN) | payer MEDICARE, OTHER ==
[2018-10-17] MEDS ORDERED: ONDANSETRON 8 MG in SODIUM CHLORIDE 0.9% 50 ML IVPB PRN (08:27)
[2018-10-17] MEDS ORDERED: ACETAMINOPHEN TAB 325 MG TAB PO ONE ×2 (08:30→12:00)
[2018-10-17] MEDS ORDERED: ALTEPLASE 2 MG VIAL (CATHFLO) IV STA (09:25)
[2018-10-17 10:05] LABS: Anisocytosis Slight; Basophils % (A) 0 %; Eosinophils # (A) 0.2 k/uL (0-0.7); Eosinophils % (A) 3 %; HCT 32.8 % (34.0-46.0); Hypochromasia Marked; Lymphocytes # (A) 0.6 k/uL (1.0-4.8); Lymphocytes % (A) 11 %; MCH 30.4 pg (25.0-35.0); MCHC 30.5 g/dL (31.0-37.0); MCV 99.6 fL (80.0-100.0); Macrocytosis Slight; Mean Platelet Volume 6.8; Monocytes # (A) 0.6 k/uL (0-1.0); Monocytes % (A) 11 %; Neutrophils % (A) 71 %; Platelet Count 297 k/uL (150-450); RBC 3.29 m/uL (3.80-5.40); RDW 17.2 % (11.5-15.5); WBC 5.6 k/uL (3.8-10.6)
[2018-10-17 10:25] LABS: ALT 26 U/L (9-52); AST 17 U/L (14-36); Albumin 3.2 g/dL (3.5-5.0); Alkaline Phosphatase 75 U/L (38-126); Anion Gap 2 mmol/L; Blood Urea Nitrogen 11 mg/dL (7-17); Calcium 9.8 mg/dL (8.4-10.2); Carbon Dioxide 28 mmol/L (22-30); Chloride 110 mmol/L (98-107); Glucose 116 mg/dL (74-99); Potassium 4.6 mmol/L (3.5-5.1); Sodium 140 mmol/L (137-145); Total Bilirubin 0.5 mg/dL (0.2-1.3); Total Protein 5.3 g/dL (6.3-8.2)
[2018-10-17] MEDS ORDERED: BENZOCAINE/MENTHOL LOZENG 1 EACH LOZENGE MUCOUS MEM PRN (11:02)
[2018-10-17] MEDS ORDERED: ARTIFICIAL TEARS-HYPROMELLOSE DROPS 15 ML BTL BOTH EYES PRN (11:02)
[2018-10-17] MEDS: SODIUM CHLORIDE 0.9% 1,000 ML IV SCH ×3 (11:12→23:40)
[2018-10-17] MEDS: FAMOTIDINE 20 MG/2 ML VIAL IV SCH (11:24)
[2018-10-17] MEDS: predniSONE 10 MG TAB PO SCH ×2 (11:24→20:15)
[2018-10-17] MEDS: predniSONE 50 MG TAB PO SCH ×2 (11:24→20:14)
[2018-10-17] MEDS: ONDANSETRON 16 MG in SODIUM CHLORIDE 0.9% 50 ML IVPB SCH (11:25)
[2018-10-17] MEDS ORDERED: methylPREDNISolone SOD SUCCI 125 MG/2 ML VIAL IV ONE (12:00)
[2018-10-17] MEDS ORDERED: diphenhydrAMINE 50 MG/ML 1 ML VIAL IVP ONE (12:00)
[2018-10-17] MEDS: SALT AND SODA MOUTHWASH 1,000 ML PO SCH ×3 (12:17→23:43)
[2018-10-17] MEDS ORDERED: riTUXimab 800 MG in SODIUM CHLORIDE 0.9% 500 ML 500 ML IV NR (13:00)
--- NOTE | 2018-10-17 14:46 | P.CRDCN ---
History of Present Illness History of present illness: This is a pleasant 68-year-old female past medical history significant for coronary artery disease status post bypass grafting in 1992, ischemic cardiomyopathy, B-cell lymphoma, obstructive sleep apnea, diabetes mellitus, hypertension, dyslipidemia, hypothyroidism and asthma. She follows in the office with Dr. Caro. We have been asked to see her in consultation for cardiac management will she is undergoing chemotherapy. She is seen and examined resting comfortably in bed eating lunch. She denies symptoms of chest pain, shortness of breath, dizziness or palpitations. On previous admissions for chemotherapy she has struggled with bradycardia. Her beta blockers have been discontinued secondary to symptomatic bradycardia. Last admission a lengthy discussion was had with the patient as well regarding her obstructive sleep apnea for which she is noncompliant with CPAP. Since that time she underwent a repeat sleep study and is awaiting CPAP fitting the end of this month. She is currently maintained on lisinopril 5 mg daily and simvastatin 80 mg daily. She recently underwent an echo as an outpatient in September 2018 that revealed mild-moderately impaired LV systolic function with EF 40-45%, mild- moderate MR, mild-moderate TR and borderline pulmonary hypertension 35 mmHg. This is similar to previous echo in the office from 2014. No EKG obtained on admission. Laboratory data reviewed, WBC 5.6, hemoglobin 10, platelets 297, sodium 140, potassium 4.6, creatinine 0.69. At the time of my exam: CONSTITUTIONAL: Denies fever. Denies chills. EYES: Denies blurred vision. Denies vision changes. Denies eye pain. EARS, NOSE, MOUTH & THROAT: Denies headache. Denies sore throat. Denies ear pain. CARDIOVASCULAR: Denies chest pain. Denies shortness of breath. Denies orthopnea. Denies PND. Denies palpitations. RESPIRATORY: Denies cough. GASTROINTESTINAL: Denies abdominal pain. Denies diarrhea. Denies constipation. Denies nausea. Denies vomiting. MUSCULOSKELETAL: Denies myalgias. INTEGUMENTARY: Denies pruitis. Denies rash. NEUROLOGIC: Denies numbness. Denies tingling. Denies weakness. PSYCHIATRIC: Denies anxiety. Denies depression. ENDOCRINE: Denies fatigue. Denies weight change. Denies polydipsia. Denies polyurina. GENITOURINARY: Denies burning, hematuria or urgency with micturation. HEMATOLOGIC: Denies history of anemia. Denies bleeding. Blood pressure 111/66 heart rate 66 afebrile maintaining oxygen saturation on room air GENERAL: This is a 68-year-old female in no apparent distress at the time of my examination. Obese. HEENT: Head is atraumatic, normocephalic. Pupils are equal, round. Sclerae anicteric. Conjunctivae are clear. Mucous membranes of the mouth are moist. Neck is supple. There is no jugular venous distention. No carotid bruit is heard. LUNGS: Clear to auscultation no wheezes, rales or rhonchi. No chest wall tenderness is noted on palpation or with deep breathing. HEART: Regular rate and rhythm without murmurs, rubs or gallops. S1 and S2 heard. ABDOMEN: Soft, nontender. Bowel sounds are heard. No organomegaly noted. EXTREMITIES: No evidence of peripheral edema and no calf tenderness noted. VASCULAR: Radial and dorsalis pedis pulses palpated, no evidence of clubbing. NEUROLOGIC: Patient is awake, alert and oriented x3. ASSESSMENT B-cell lymphoma currently undergoing chemotherapy History of coronary artery disease status post bypass grafting History of symptomatic sinus bradycardia, has improved since discontinuation of beta blockers Ischemic cardiomyopathy, mildly worsened after chemotherapy. Beta blockers have been discontinued secondary to symptomatic bradycardia during chemotherapy. Hypertension Dyslipidemia Obstructive sleep apnea, noncompliant with CPAP Hypothyroidism PLAN Mrs. Ochoa is stable from a cardiac perspective. No evidence of tachy- or charlie- arrhythmia at this point. On previous admission it was determined that her bradycardia was most likely related to sleep apnea and we recommended she undergo a sleep study, which she completed a couple of weeks ago and is awaiting her CPAP. Once this has been initiated we can consider re-starting her beta blockers as an outpatient down the road. Ongoing telemetry monitoring during chemotherapy infusion. Please call with further questions or concerns throughout her hospitalization. We will see her as needed. Follow up with Dr. Caro upon discharge. Thank you kindly for this consultation. Nurse Practitioner note has been reviewed, I agree with a documented findings and plan of care. Patient was seen and examined. Past Medical History Past Medical History: Asthma, Coronary Artery Disease (CAD), Cancer, Diabetes Mellitus, Hearing Disorder / Deafness, Hyperlipidemia, Hypertension, Musculoskeletal Disorder, Osteoarthritis (OA), Skin Disorder, Sleep Apnea/CPAP/ BIPAP, Thyroid Disorder Additional Past Medical History / Comment(s): DLBCL-receiving chemotherapy and had bradycardia, R colectomy d/t mass, ischemic heart disease, NIDDM type II, deaf/chronic otitis media L ear, chronic otitis media/SHAWNEE R ear, chronic low back/neck and R shoulder pain, new R outer knee pain, RLS, veritgo at times, L hand numbness tingling which she attributes to L sided carpal tunnel syndrome, varicosities, possible IBS/colitis and chron's per pt in the past, benign colon polyps, RLS, hypothyroid, allergic sinusitis, ASHLEY currently not using device- just had another sleep study on 10/14/18, eczema. History of Any Multi-Drug Resistant Organisms: None Reported Past Surgical History: Bariatric Surgery, Bowel Resection, Cholecystectomy, Coronary Bypass/CABG, Heart Catheterization, Hernia Repair, Joint Replacement, Orthopedic Surgery, Tubal Ligation Additional Past Surgical History / Comment(s): 09/29/18 removal R ear ventilation tube and polypectomy, past bilateral ear surgery with tubes, L tympanomastiodectomy, CABG x1 vessel (1992), bilateral shoulder surgery/ rt shoulder rotator cuff, bilateral carpal tunnel releases, L wrist surgery d/t injury, L knee arthroscopy, total L knee arthroplasty, lap band since removed, gastric bypass, colonoscopy/benign polypectomy, R colectomy d/t mass, umbilical hernia repair Past Anesthesia/Blood Transfusion Reactions: No Reported Reaction, Motion Sickness Additional Past Anesthesia/Blood Transfusion Reaction / Comment(s): VERTIGO Smoking Status: Former smoker - Past Family History Mother Additional Family Medical History / Comment(s): Pt states her mother never went to the doctor so she does not know of any medical problems. Mother lived to be 87yrs old. Father Additional Family Medical History / Comment(s): Father at the age of 67yrs , pt does not know cause of . He had alcohol abuse Sister(s) Family Medical History: Cancer Additional Family Medical History / Comment(s): LUNG CA Medications and Allergies Home Medications Medication Instructions Recorded Confirmed Type Simvastatin [Zocor] 80 mg PO HS 03/21/14 10/17/18 History Zafirlukast [Accolate] 20 mg PO BID 03/21/14 10/17/18 History Ergocalciferol [Vitamin D2 50,000 unit PO MO 10/09/14 10/17/18 History (FAUSTO)] Levothyroxine Sodium [Synthroid] 150 mcg PO QAM 10/09/14 10/17/18 History Glimepiride [Amaryl] 1 mg PO AC-BRKFST 10/08/15 10/17/18 History rOPINIRole HCL [Requip] 0.5 mg PO HS 08/04/17 10/17/18 History Acyclovir 400 mg PO AC-BID #60 tablet 08/07/18 10/17/18 Rx Meclizine [Antivert] 25 mg PO TID PRN #14 tab 08/07/18 10/17/18 Rx Pantoprazole [Protonix] 40 mg PO AC-BID #60 tablet. 08/07/18 10/17/18 Rx Cyanocobalamin (Vitamin B-12) 1,000 mcg PO DAILY 08/22/18 10/17/18 History [Vitamin B-12] HYDROcodone/APAP 10-325MG [[place] 1 tab PO Q4H PRN 08/22/18 10/17/18 History 10-325] Lisinopril [Zestril] 5 mg PO DAILY 08/22/18 10/17/18 History Artificial Tears-Hypromellose 1 drops BOTH EYES QID PRN bottle 08/26/18 Rx [Artificial Tear Drops] Fluticasone/Salmeterol [Advair 2 puff INHALATION RT-BID 09/12/18 10/17/18 History 250-50 Diskus] Acetaminophen Tab [Tylenol] 325 mg PO HS PRN tab 09/16/18 10/17/18 Rx Benzocaine/Menthol Lozeng [Cepacol 1 each MUCOUS MEM Q4HR PRN lozenge 09/16/18 10/17/18 Rx lozenge] Ipratropium-Albuterol Nebulize 3 ml INHALATION RT-Q2H PRN 09/16/18 10/17/18 Rx [Duoneb 0.5 mg-3 mg/3 ml Soln] ampul.neb predniSONE 20 mg PO DAILY 09/28/18 10/17/18 History Ofloxacin 0.3% Ophth Soln [Ocuflox 5 drops RIGHT EAR BID 5 Days #10 09/29/1812/02 Rx Ophth Soln] bottle Allergies Allergy/AdvReac Type Severity Reaction Status Date / Time allopurinol Allergy Itching Verified 10/17/18 08:59 cephalexin monohydrate Allergy Itching Verified 10/17/18 08:59 [From Keflex] clindamycin Allergy Itching Verified 10/17/18 08:59 NSAIDS (Non-Steroidal AdvReac Unknown STATES NO Verified 10/17/18 08:59 Anti-Inflamma NSAIDS DUE TO GASTRIC BYPASS ciprofloxacin [From Cipro] AdvReac severe Verified 10/17/18 08:59 heartburn doxycycline AdvReac severe Verified 10/17/18 08:59 heartburn Physical Exam Vitals: Vital Signs Temp Pulse Resp BP Pulse Ox 10/17/18 11:43 97.8 F 66 18 111/66 98 10/17/18 09:01 97.6 F 71 18 92/56 99 Intake and Output 10/16/18 10/17/18 10/17/18 22:59 06:59 14:59 Intake Total 131.667 Balance 131.667 Intake: Intake, IV Titration 131.667 Amount riTUXimab 800 mg In 131.667 Sodium Chloride 0.9% 500 ml 500 ml @ Titrate IV . Q0M NR Rx#:[id number] Other: Weight 117.5 kg Results 10/17/18 09:53 10/17/18 09:53 Cardiac Enzymes 10/17/18 Range/Units 09:53 AST 17 (14-36) U/L CBC 10/17/18 Range/Units 09:53 WBC 5.6 (3.8-10.6) k/uL RBC 3.29 L (3.80-5.40) m/uL Hgb 10.0 L D (11.4-16.0) gm/dL Hct 32.8 L (34.0-46.0) % Plt Count 297 (150-450) k/uL Comprehensive Metabolic Panel 10/17/18 Range/Units 09:53 Sodium 140 (137-145) mmol/L Potassium 4.6 (3.5-5.1) mmol/L Chloride 110 H (98-107) mmol/L Carbon Dioxide 28 (22-30) mmol/L BUN 11 (7-17) mg/dL Creatinine 0.69 (0.52-1.04) mg/dL Glucose 116 H (74-99) mg/dL Calcium 9.8 (8.4-10.2) mg/dL AST 17 (14-36) U/L ALT 26 (9-52) U/L Alkaline Phosphatase 75 (38-126) U/L Total Protein 5.3 L (6.3-8.2) g/dL Albumin 3.2 L (3.5-5.0) g/dL Current Medications Generic Name Dose Route Start Last Admin Trade Name Freq PRN Reason Stop Dose Admin Hydrocodone Bitart/Acetaminophen 1 each 10/17/18 11:02 [place] 10 PO Q4H PRN Pain Acyclovir 400 mg 10/17/18 17:30 Zovirax PO AC-BID JOVANNY Albuterol/Ipratropium 3 ml 10/17/18 11:02 Duoneb 0.5 Mg-3 Mg/3 Ml Soln INHALATION RT-Q2H PRN Shortness Of Breath Or Wheezing Artificial Tears 1 drops 10/17/18 11:02 Artificial Tear Drops BOTH EYES QID PRN Dry Eye(s) Atorvastatin Calcium 40 mg 10/17/18 21:00 Lipitor PO HS JOVANNY Benzocaine/Menthol 1 each 10/17/18 11:02 Cepacol Lozenge MUCOUS MEM Q4HR PRN Sore Throat Budesonide/Formoterol Fumarate 2 puff 10/17/18 20:00 Symbicort 80-4.5 Mcg Inhaler INHALATION RT-BID JOVANNY Cyanocobalamin 1,000 mcg 10/18/18 12:00 Vitamin B-12 PO 1200 JOVANNY Ergocalciferol 50,000 unit 10/24/18 12:00 Vitamin D2 PO Mo@1200 JOVANNY Famotidine 20 mg 10/17/18 12:00 10/17/18 11:24 Pepcid IV 10/21/18 12:01 20 mg Q24H JOVANNY Administration Glimepiride 1 mg 10/18/18 07:30 Amaryl PO AC-BRKFST JOVANNY Sodium Chloride 1,000 mls @ 150 mls/hr 10/17/18 08:30 10/17/18 11:12 Saline 0.9% IV 150 mls/hr .Q6H40M JOVANNY Administration Ondansetron HCl 8 mg/ Sodium 54 mls @ 100 mls/hr 10/17/18 08:27 Chloride IVPB BID PRN Nausea Rituximab 800 mg/ Sodium 580 mls @ 0 mls/hr 10/17/18 13:00 10/17/18 14:01 Chloride IV 10/17/18 20:00 200 ml/hr .Q0M NR 200 mls/hr Titration Protocol Titrate Doxorubicin HCl 22 mg/ Sodium 261 mls @ 10.875 mls/hr 10/17/18 18:00 Chloride IV 10/21/18 17:59 Q24H JOVANNY Vincristine Sulfate 0.9 mg/ 50.9 mls @ 2.121 mls/hr 10/17/18 18:00 Sodium Chloride IV 10/21/18 17:59 Q24H JOVANNY Cyclophosphamide 1,640 mg/ 582 mls @ 1,164 mls/hr 10/21/18 21:00 Sodium Chloride IV 10/21/18 21:29 ONCE ONE Etoposide 110 mg/ Sodium 505.5 mls @ 21.063 mls/hr 10/17/18 18:00 Chloride IV 10/21/18 17:59 Q24H JOVANYN Ondansetron HCl 16 mg/ Sodium 58 mls @ 100 mls/hr 10/17/18 12:00 10/17/18 11: 25 Chloride IVPB 10/21/18 12:35 100 mls/hr Q24H JOVANNY Administration Insulin Aspart 0 unit 10/17/18 17:30 Novolog SQ ACHS JOVANNY Protocol Levothyroxine Sodium 150 mcg 10/18/18 06:30 Synthroid PO 0630 JOVANNY Lisinopril 5 mg 10/18/18 09:00 Zestril PO DAILY JOVANNY Meclizine HCl 25 mg 10/17/18 11:02 Antivert PO TID PRN Vertigo Montelukast Sodium 10 mg 10/17/18 21:00 Singulair PO HS JOVANNY Pantoprazole Sodium 40 mg 10/17/18 17:30 Protonix PO AC-BID JOVANNY Prednisone 100 mg 10/17/18 09:00 10/17/18 11:24 PO 10/21/18 21:01 100 mg BID JOVANNY Administration Prednisone 30 mg 10/17/18 09:00 10/17/18 11:24 PO 10/21/18 21:01 30 mg BID JOVANNY Administration Ropinirole HCl 0.5 mg 10/17/18 21:00 Requip PO HS JOVANNY Sodium Bicarbonate 5 ml 10/17/18 13:00 10/17/18 12:17 PO 5 ml QID JOVANNY Administration Intake and Output 10/16/18 10/17/18 10/17/18 22:59 06:59 14:59 Intake Total 131.667 Balance 131.667 Intake: Intake, IV Titration 131.667 Amount riTUXimab 800 mg In 131.667 Sodium Chloride 0.9% 500 ml 500 ml @ Titrate IV . Q0M NR Rx#:[id number] Other: Weight 117.5 kg Patient Weight 10/18/18 06:59 Weight 117.5 kg 10/17/18 09:53 10/17/18 09:53
[2018-10-17] MEDS: HYDROcodone/APAP 10-325MG 1 EACH TAB PO PRN ×2 (15:24→20:03)
[2018-10-17] MEDS: ACYCLOVIR 200 MG CAP PO SCH (17:34)
[2018-10-17] MEDS: PANTOPRAZOLE 40 MG TABLET PO SCH (17:34)
[2018-10-17 17:38] LABS: Glucose,Whole Blood 197 mg/dL (75-99)
[2018-10-17] MEDS: INSULIN ASPART (NovoLOG) 100 UNIT/ML VIAL SQ SCH ×2 (17:46→20:15)
[2018-10-17] MEDS: SODIUM CHLORIDE 0.9% IV SCH ×3 (18:00→18:09)
[2018-10-17] MEDS: DOXORUBICIN HCL IV SCH (18:00)
[2018-10-17] MEDS: VINCRISTINE SULFATE IV SCH (18:05)
[2018-10-17] MEDS: ETOPOSIDE IV SCH (18:09)
[2018-10-17 20:11] LABS: Glucose,Whole Blood 221 mg/dL (75-99)
[2018-10-17] MEDS: MONTELUKAST 10 MG TAB PO SCH (20:14)
[2018-10-17] MEDS: ATORVASTATIN 40 MG TAB PO SCH (20:15)
[2018-10-17] MEDS: SYMBICORT 80-4.5 MCG INHALER INHALATION SCH (20:27)
[2018-10-17] MEDS ORDERED: ACETAMINOPHEN TAB 325 MG TAB PO PRN (20:44)
--- NOTE | 2018-10-17 20:44 | P.HPIM ---
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 We did have Cardiology evaluation with clearance to continue chemotherapy. She did have a tube placed in her ear with resolution of impaired hearing.Pt admitted with no c/o on a 14 point ROS, appetite is fair to good, back pain managed, fully ambulatory. Malignancy history: Mrs. Ochoa was initially evaluated summer for c/o persistent RLQ abdominal pain associated with intermittent diarrhea. Colonoscopy in 03/02 was negative. Due to persistence of the symptoms pt had CT that showed inflammation of the right colon and cecum. She had 06/16/18, pathology positive for diffuse large B-cell lymphoma infiltrating the colonic and terminal ileum with involvement of at least one mesocolic lymph node. Staging PET showed uptake only in the right lower quadrant of the abdomen. There was no evidence of double/triple hit mutations. Treatment recommendation was for 6 cycles of continuous IV infusion REPOCH. Patient started treatment 08/01/2018. She has required Cardiac work up due to bradycardia during treatment, she had good response on PET 10/04 Review of Systems 14 point ROS is negative Past Medical History Past Medical History: Asthma, Coronary Artery Disease (CAD), Cancer, Diabetes Mellitus, Hearing Disorder / Deafness, Hyperlipidemia, Hypertension, Musculoskeletal Disorder, Osteoarthritis (OA), Skin Disorder, Sleep Apnea/CPAP/ BIPAP, Thyroid Disorder Additional Past Medical History / Comment(s): DLBCL-receiving chemotherapy and had bradycardia, R colectomy d/t mass, ischemic heart disease, NIDDM type II, deaf/chronic otitis media L ear, chronic otitis media/SQUAXIN R ear, chronic low back/neck and R shoulder pain, new R outer knee pain, RLS, veritgo at times, L hand numbness tingling which she attributes to L sided carpal tunnel syndrome, varicosities, possible IBS/colitis and chron's per pt in the past, benign colon polyps, RLS, hypothyroid, allergic sinusitis, ASHLEY currently not using device- just had another sleep study on 10/14/18, eczema. History of Any Multi-Drug Resistant Organisms: None Reported Past Surgical History: Bariatric Surgery, Bowel Resection, Cholecystectomy, Coronary Bypass/CABG, Heart Catheterization, Hernia Repair, Joint Replacement, Orthopedic Surgery, Tubal Ligation Additional Past Surgical History / Comment(s): 09/29/18 removal R ear ventilation tube and polypectomy, past bilateral ear surgery with tubes, L tympanomastiodectomy, CABG x1 vessel (1992), bilateral shoulder surgery/ rt shoulder rotator cuff, bilateral carpal tunnel releases, L wrist surgery d/t injury, L knee arthroscopy, total L knee arthroplasty, lap band since removed, gastric bypass, colonoscopy/benign polypectomy, R colectomy d/t mass, umbilical hernia repair Past Anesthesia/Blood Transfusion Reactions: No Reported Reaction, Motion Sickness Additional Past Anesthesia/Blood Transfusion Reaction / Comment(s): VERTIGO Smoking Status: Former smoker - Past Family History Mother Additional Family Medical History / Comment(s): Pt states her mother never went to the doctor so she does not know of any medical problems. Mother lived to be 87yrs old. Father Additional Family Medical History / Comment(s): Father at the age of 67yrs , pt does not know cause of . He had alcohol abuse Sister(s) Family Medical History: Cancer Additional Family Medical History / Comment(s): LUNG CA Medications and Allergies Home Medications Medication Instructions Recorded Confirmed Type Simvastatin [Zocor] 80 mg PO HS 03/21/14 10/17/18 History Zafirlukast [Accolate] 20 mg PO BID 03/21/14 10/17/18 History Ergocalciferol [Vitamin D2 50,000 unit PO MO 10/09/14 10/17/18 History (FAUSTO)] Levothyroxine Sodium [Synthroid] 150 mcg PO QAM 10/09/14 10/17/18 History Glimepiride [Amaryl] 1 mg PO AC-BRKFST 10/08/15 10/17/18 History rOPINIRole HCL [Requip] 0.5 mg PO HS 08/04/17 10/17/18 History Acyclovir 400 mg PO AC-BID #60 tablet 08/07/18 10/17/18 Rx Meclizine [Antivert] 25 mg PO TID PRN #14 tab 08/07/18 10/17/18 Rx Pantoprazole [Protonix] 40 mg PO AC-BID #60 tablet. 08/07/18 10/17/18 Rx Cyanocobalamin (Vitamin B-12) 1,000 mcg PO DAILY 08/22/18 10/17/18 History [Vitamin B-12] HYDROcodone/APAP 10-325MG [[place] 1 tab PO Q4H PRN 08/22/18 10/17/18 History 10-325] Lisinopril [Zestril] 5 mg PO DAILY 08/22/18 10/17/18 History Artificial Tears-Hypromellose 1 drops BOTH EYES QID PRN bottle 08/26/18 Rx [Artificial Tear Drops] Fluticasone/Salmeterol [Advair 2 puff INHALATION RT-BID 09/12/18 10/17/18 History 250-50 Diskus] Acetaminophen Tab [Tylenol] 325 mg PO HS PRN tab 09/16/18 10/17/18 Rx Benzocaine/Menthol Lozeng [Cepacol 1 each MUCOUS MEM Q4HR PRN lozenge 09/16/18 10/17/18 Rx lozenge] Ipratropium-Albuterol Nebulize 3 ml INHALATION RT-Q2H PRN 09/16/18 10/17/18 Rx [Duoneb 0.5 mg-3 mg/3 ml Soln] ampul.neb predniSONE 20 mg PO DAILY 09/28/18 10/17/18 History Ofloxacin 0.3% Ophth Soln [Ocuflox 5 drops RIGHT EAR BID 5 Days #10 09/29/1812/02 Rx Ophth Soln] bottle Allergies Allergy/AdvReac Type Severity Reaction Status Date / Time allopurinol Allergy Itching Verified 10/17/18 08:59 cephalexin monohydrate Allergy Itching Verified 10/17/18 08:59 [From Keflex] clindamycin Allergy Itching Verified 10/17/18 08:59 NSAIDS (Non-Steroidal AdvReac Unknown STATES NO Verified 10/17/18 08:59 Anti-Inflamma NSAIDS DUE TO GASTRIC BYPASS ciprofloxacin [From Cipro] AdvReac severe Verified 10/17/18 08:59 heartburn doxycycline AdvReac severe Verified 10/17/18 08:59 heartburn Physical Exam Vitals: Vital Signs Temp Pulse Resp BP Pulse Ox 10/17/18 16:00 97.9 F 70 18 110/60 10/17/18 11:43 97.8 F 66 18 111/66 98 10/17/18 09:01 97.6 F 71 18 92/56 99 Intake and Output 10/17/18 10/17/18 10/17/18 06:59 14:59 22:59 Intake Total 131.667 523.333 Balance 131.667 523.333 Intake: Intake, IV Titration 131.667 283.333 Amount riTUXimab 800 mg In 131.667 283.333 Sodium Chloride 0.9% 500 ml 500 ml @ Titrate IV . Q0M NR Rx#:[id number] Oral 240 Other: # Voids 2 Weight 117.5 kg - Constitutional General appearance: cooperative, morbidly obese, no acute distress - EENT Eyes: anicteric sclerae, EOMI ENT: hearing grossly normal, normal oropharynx - Neck Neck: no lymphadenopathy - Respiratory Respiratory: bilateral: CTA - Cardiovascular Rhythm: regular Heart sounds: normal: S1, S2 leg Peripheral Edema: bilateral: None - Gastrointestinal General gastrointestinal: no absent bowel sounds, no decreased bowel sounds, no distended, no hepatomegaly, no hyperactive bowel sounds, normal bowel sounds, no organomegaly, no rigid, no scaphoid, soft, no splenomegaly, no tenderness, no umbilical hernia, no ventral hernia - Integumentary Integumentary: pale - Neurologic Neurologic: CNII-XII intact - Musculoskeletal Musculoskeletal: strength equal bilaterally - Psychiatric Psychiatric: A&O x's 3, appropriate affect, intact judgment & insight Results CBC & Chem 7: 10/17/18 09:53 10/17/18 09:53 Labs: Abnormal Lab Results - Last 24 Hours (Table) 10/17/18 10/17/18 10/17/18 Range/Units 09:53 09:53 17:34 RBC 3.29 L (3.80-5.40) m/uL Hgb 10.0 L D (11.4-16.0) gm/dL Hct 32.8 L (34.0-46.0) % MCHC 30.5 L (31.0-37.0) g/dL RDW 17.2 H (11.5-15.5) % Lymphocytes # 0.6 L (1.0-4.8) k/uL Chloride 110 H (98-107) mmol/L Glucose 116 H (74-99) mg/dL POC Glucose (mg/dL) 197 H (75-99) mg/dL Total Protein 5.3 L (6.3-8.2) g/dL Albumin 3.2 L (3.5-5.0) g/dL 10/17/18 Range/Units 20:09 RBC (3.80-5.40) m/uL Hgb (11.4-16.0) gm/dL Hct (34.0-46.0) % MCHC (31.0-37.0) g/dL RDW (11.5-15.5) % Lymphocytes # (1.0-4.8) k/uL Chloride (98-107) mmol/L Glucose (74-99) mg/dL POC Glucose (mg/dL) 221 H (75-99) mg/dL Total Protein (6.3-8.2) g/dL Albumin (3.5-5.0) g/dL Thrombosis Risk Factor Assmnt - DVT/VTE Prophylaxis DVT/VTE Prophylaxis: Pharmacologic Prophylaxis ordered - Choose All That Apply Any of the Below Risk Factors Present?: Yes Each Factor Represents 1 point: Obesity (BMI >25), Varicose veins Other Risk Factors: Yes Each Risk Factor Represents 2 Points: Age 61-74 years, Malignancy Other congenital or acquired thrombophilia - If yes, enter type in comment: No Thrombosis Risk Factor Assessment Total Risk Factor Score: 6 Thrombosis Risk Factor Assessment Level: High Risk Assessment and Plan (1) Diffuse large B-cell lymphoma of extranodal site Narrative/Plan: Admit for CIVI R-EPOCH regimen, cycle 4. Home meds reconciled Supportive meds ordered Labs daily Current Visit: Yes Status: Acute Priority: High Code(s): C83.39 - DIFFUSE LARGE B-CELL LYMPHOMA, EXTRNOD AND SOLID ORGAN SITES SNOMED Code(s): 872134414 (2) Bradyarrhythmia Narrative/Plan: Cardiology consulted to follow while inpatient Current Visit: Yes Status: Acute Priority: High Code(s): I49.8 - OTHER SPECIFIED CARDIAC ARRHYTHMIAS SNOMED Code(s): 954982144 (3) Chronic pain syndrome Narrative/Plan: Cont home pain meds Current Visit: No Status: Chronic Priority: Low Code(s): G89.4 - CHRONIC PAIN SYNDROME SNOMED Code(s): 724868364 Plan: GI and DVT prophylaxis attests: I have performed history and physical exam of patient, developed impression and plan of care, discussed with dictator. Agree with dictation, documented as a scribe.
[2018-10-17 22:26] LABS: Hemoglobin A1C 5.6 % (4.0-6.0)
[2018-10-17] MEDS: OFLOXACIN 0.3% OPHTH DROPS 5 ML BOTTLE RIGHT EAR SCH (23:40)
[2018-10-18] MEDS: HYDROcodone/APAP 10-325MG 1 EACH TAB PO PRN ×6 (00:17→21:17)
[2018-10-18] MEDS: SODIUM CHLORIDE 0.9% 1,000 ML IV SCH ×4 (05:35→20:48)
[2018-10-18] MEDS: LEVOTHYROXINE 75 MCG TAB PO SCH (05:42)
[2018-10-18] MEDS: MECLIZINE 25 MG TAB PO PRN (06:10)
[2018-10-18 07:04] LABS: Glucose,Whole Blood 174 mg/dL (75-99)
[2018-10-18 07:43] LABS: Anisocytosis Slight; Basophils % (A) 0 %; Eosinophils % (A) 1 %; HCT 31.9 % (34.0-46.0); HGB 9.8 gm/dL (11.4-16.0); Hypochromasia Marked; Lymphocytes # (A) 0.4 k/uL (1.0-4.8); Lymphocytes % (A) 8 %; MCH 31.3 pg (25.0-35.0); MCHC 30.8 g/dL (31.0-37.0); MCV 101.8 fL (80.0-100.0); Macrocytosis Moderate; Mean Platelet Volume 6.7; Monocytes # (A) 0.4 k/uL (0-1.0); Monocytes % (A) 7 %; Neutrophils # (A) 4.2 k/uL (1.3-7.7); Neutrophils % (A) 83 %; Platelet Count 294 k/uL (150-450); RBC 3.14 m/uL (3.80-5.40); RDW 17.8 % (11.5-15.5); WBC 5.1 k/uL (3.8-10.6)
[2018-10-18 07:58] LABS: ALT 24 U/L (9-52); AST 17 U/L (14-36); Albumin 3.2 g/dL (3.5-5.0); Alkaline Phosphatase 63 U/L (38-126); Anion Gap 6 mmol/L; Blood Urea Nitrogen 15 mg/dL (7-17); Calcium 10.2 mg/dL (8.4-10.2); Carbon Dioxide 24 mmol/L (22-30); Chloride 111 mmol/L (98-107); Glucose 173 mg/dL (74-99); Sodium 141 mmol/L (137-145); Total Bilirubin 0.6 mg/dL (0.2-1.3); Total Protein 5.4 g/dL (6.3-8.2)
[2018-10-18] MEDS: SYMBICORT 80-4.5 MCG INHALER INHALATION SCH ×2 (08:02→19:39)
[2018-10-18] MEDS: PANTOPRAZOLE 40 MG TABLET PO SCH ×2 (08:07→17:42)
[2018-10-18] MEDS: LISINOPRIL 5 MG TAB PO SCH (08:07)
[2018-10-18] MEDS: predniSONE 10 MG TAB PO SCH ×2 (08:07→21:16)
[2018-10-18] MEDS: CYANOCOBALAMIN 500 MCG TAB PO SCH (08:07)
[2018-10-18] MEDS: INSULIN ASPART (NovoLOG) 100 UNIT/ML VIAL SQ SCH ×4 (08:07→21:17)
[2018-10-18] MEDS: GLIMEPIRIDE 1 MG TAB PO SCH (08:07)
[2018-10-18] MEDS: predniSONE 50 MG TAB PO SCH ×2 (08:07→21:16)
[2018-10-18] MEDS: ENOXAPARIN 40 MG/0.4 ML SYRINGE SQ SCH (08:07)
[2018-10-18] MEDS: ACYCLOVIR 200 MG CAP PO SCH ×2 (08:07→17:42)
[2018-10-18] MEDS: OFLOXACIN 0.3% OPHTH DROPS 5 ML BOTTLE RIGHT EAR SCH ×2 (08:08→21:19)
[2018-10-18] MEDS: SALT AND SODA MOUTHWASH 1,000 ML PO SCH ×4 (08:13→21:20)
[2018-10-18 11:20] LABS: Glucose,Whole Blood 93 mg/dL (75-99)
[2018-10-18 12:57] VITALS: BMI 45.4
--- NOTE | 2018-10-18 13:25 | P.PN ---
Progress Note - Text Progress Note Date: 10/18/18 Pt lives in a 2 story residence with restroom located on the second floor. She is confined to the 1st story so, commode chair is necessary.
[2018-10-18] MEDS: ONDANSETRON 16 MG in SODIUM CHLORIDE 0.9% 50 ML IVPB SCH (16:57)
[2018-10-18] MEDS: FAMOTIDINE 20 MG/2 ML VIAL IV SCH (16:57)
[2018-10-18 17:26] LABS: Glucose,Whole Blood 173 mg/dL (75-99)
[2018-10-18] MEDS: SODIUM CHLORIDE 0.9% IV SCH ×3 (18:05→18:15)
[2018-10-18] MEDS: DOXORUBICIN HCL IV SCH (18:05)
[2018-10-18] MEDS: VINCRISTINE SULFATE IV SCH (18:11)
[2018-10-18] MEDS: ETOPOSIDE IV SCH (18:15)
--- NOTE | 2018-10-18 18:46 | P.CNPUL ---
History of Present Illness Consult date: 10/18/18 Reason for consult: dyspnea, cough, obstructive sleep apnea Chief complaint: Asked to her to be evaluated for sleep disorder breathing and sleep apnea History of present illness: Mrs. solorzano is a 68-year-old female well-known to P for prior medical history of chronic persistent asthma has been admitted into the hospital for fourths and last cycle of the chemotherapy for diffuse large B-cell lymphoma, patient recently underwent a polysomnogram on outpatient setting still has mild-to- moderate degree of sleep apnea CPAP titration study however is pending, patient has a ongoing long-standing history of restless leg syndrome she has been on Requip dose has been escalated to 1 mg at bedtime which seems to be working, review of the data revealed that previously patient was on CPAP of 10 with 1028 % oxygen was initiated for now Review of the data revealed that Patient is admitted for her 4thHer cycle of R EPOCH treatment for diffuse large B-cell lymphoma of the gastrointestinal tract , recent PET showed no residual adenopathy and no PET avid areas. We did have Cardiology evaluation with clearance to continue chemotherapy. She did have a tube placed in her ear with resolution of impaired hearing.Pt admitted with no c /o on a 14 point ROS, appetite is fair to good, back pain managed, fully ambulatory. Patient was found to have RLQ abdominal pain associated with intermittent diarrhea. Colonoscopy in 03/02 was negative. Due to persistence of the symptoms pt had CT that showed inflammation of the right colon and cecum. She had 06/16/18, pathology positive for diffuse large B-cell lymphoma infiltrating the colonic and terminal ileum with involvement of at least one mesocolic lymph node. Staging PET showed uptake only in the right lower quadrant of the abdomen. There was no evidence of double/triple hit mutations. Treatment recommendation was for 6 cycles of continuous IV infusion REPOCH. Patient started treatment 08/01/2018. She has required Cardiac work up due to bradycardia during treatment, she had good response on PET 10/04 Review of Systems All systems: negative Past Medical History Past Medical History: Asthma, Coronary Artery Disease (CAD), Cancer, Diabetes Mellitus, Hearing Disorder / Deafness, Hyperlipidemia, Hypertension, Musculoskeletal Disorder, Osteoarthritis (OA), Skin Disorder, Sleep Apnea/CPAP/ BIPAP, Thyroid Disorder Additional Past Medical History / Comment(s): DLBCL-receiving chemotherapy and had bradycardia, R colectomy d/t mass, ischemic heart disease, NIDDM type II, deaf/chronic otitis media L ear, chronic otitis media/SAUK-SUIATTLE R ear, chronic low back/neck and R shoulder pain, new R outer knee pain, RLS, veritgo at times, L hand numbness tingling which she attributes to L sided carpal tunnel syndrome, varicosities, possible IBS/colitis and chron's per pt in the past, benign colon polyps, RLS, hypothyroid, allergic sinusitis, ASHLEY currently not using device- just had another sleep study on 10/14/18, eczema. History of Any Multi-Drug Resistant Organisms: None Reported Past Surgical History: Bariatric Surgery, Bowel Resection, Cholecystectomy, Coronary Bypass/CABG, Heart Catheterization, Hernia Repair, Joint Replacement, Orthopedic Surgery, Tubal Ligation Additional Past Surgical History / Comment(s): 09/29/18 removal R ear ventilation tube and polypectomy, past bilateral ear surgery with tubes, L tympanomastiodectomy, CABG x1 vessel (1992), bilateral shoulder surgery/ rt shoulder rotator cuff, bilateral carpal tunnel releases, L wrist surgery d/t injury, L knee arthroscopy, total L knee arthroplasty, lap band since removed, gastric bypass, colonoscopy/benign polypectomy, R colectomy d/t mass, umbilical hernia repair Past Anesthesia/Blood Transfusion Reactions: No Reported Reaction, Motion Sickness Additional Past Anesthesia/Blood Transfusion Reaction / Comment(s): VERTIGO Smoking Status: Former smoker - Past Family History Mother Additional Family Medical History / Comment(s): Pt states her mother never went to the doctor so she does not know of any medical problems. Mother lived to be 87yrs old. Father Additional Family Medical History / Comment(s): Father at the age of 67yrs , pt does not know cause of . He had alcohol abuse Sister(s) Family Medical History: Cancer Additional Family Medical History / Comment(s): LUNG CA Medications and Allergies Home Medications Medication Instructions Recorded Confirmed Type Simvastatin [Zocor] 80 mg PO HS 03/21/14 10/17/18 History Zafirlukast [Accolate] 20 mg PO BID 03/21/14 10/17/18 History Ergocalciferol [Vitamin D2 50,000 unit PO MO 10/09/14 10/17/18 History (DRISDOL)] Levothyroxine Sodium [Synthroid] 150 mcg PO QAM 10/09/14 10/17/18 History Glimepiride [Amaryl] 1 mg PO AC-BRKFST 10/08/15 10/17/18 History rOPINIRole HCL [Requip] 0.5 mg PO HS 08/04/17 10/17/18 History Acyclovir 400 mg PO AC-BID #60 tablet 08/07/18 10/17/18 Rx Meclizine [Antivert] 25 mg PO TID PRN #14 tab 08/07/18 10/17/18 Rx Pantoprazole [Protonix] 40 mg PO AC-BID #60 tablet. 08/07/18 10/17/18 Rx Cyanocobalamin (Vitamin B-12) 1,000 mcg PO DAILY 08/22/18 10/17/18 History [Vitamin B-12] HYDROcodone/APAP 10-325MG [[place] 1 tab PO Q4H PRN 08/22/18 10/17/18 History 10-325] Lisinopril [Zestril] 5 mg PO DAILY 08/22/18 10/17/18 History Artificial Tears-Hypromellose 1 drops BOTH EYES QID PRN bottle 08/26/18 Rx [Artificial Tear Drops] Fluticasone/Salmeterol [Advair 2 puff INHALATION RT-BID 09/12/18 10/17/18 History 250-50 Diskus] Acetaminophen Tab [Tylenol] 325 mg PO HS PRN tab 09/16/18 10/17/18 Rx Benzocaine/Menthol Lozeng [Cepacol 1 each MUCOUS MEM Q4HR PRN lozenge 09/16/18 10/17/18 Rx lozenge] Ipratropium-Albuterol Nebulize 3 ml INHALATION RT-Q2H PRN 09/16/18 10/17/18 Rx [Duoneb 0.5 mg-3 mg/3 ml Soln] ampul.neb predniSONE 20 mg PO DAILY 09/28/18 10/17/18 History Ofloxacin 0.3% Ophth Soln [Ocuflox 5 drops RIGHT EAR BID 5 Days #10 09/29/1812/02 Rx Ophth Soln] bottle Allergies Allergy/AdvReac Type Severity Reaction Status Date / Time allopurinol Allergy Itching Verified 10/17/18 08:59 cephalexin monohydrate Allergy Itching Verified 10/17/18 08:59 [From Keflex] clindamycin Allergy Itching Verified 10/17/18 08:59 NSAIDS (Non-Steroidal AdvReac Unknown STATES NO Verified 10/17/18 08:59 Anti-Inflamma NSAIDS DUE TO GASTRIC BYPASS ciprofloxacin [From Cipro] AdvReac severe Verified 10/17/18 08:59 heartburn doxycycline AdvReac severe Verified 10/17/18 08:59 heartburn Physical Exam Vitals: Vital Signs Temp Pulse Pulse Resp BP Pulse Ox 10/18/18 16:00 97.6 F 58 L 16 125/61 10/18/18 12:00 97.1 F L 81 18 128/72 99 10/18/18 08:00 97.8 F 85 18 122/74 100 10/18/18 04:00 97.7 F 70 16 144/73 95 10/18/18 00:00 97.7 F 59 L 18 138/73 94 L 10/17/18 20:00 97.7 F 63 18 155/70 94 L Intake and Output 10/18/18 10/18/18 10/18/18 06:59 14:59 22:59 Intake Total 2755.511 2150.2 Balance 4268.840 7202.2 Intake: Intake, IV Titration 6377.445 8135.2 Amount DOXOrubicin HCL 22 mg In 87.0 86.4 Sodium Chloride 0.9% 250 ml @ 10.875 mls/hr IV Q24H [facility] Rx#:[id number] Etoposide 110 mg In 168.504 168 Sodium Chloride 0.9% 500 ml 500 ml @ 21.063 mls/hr IV Q24H [facility] Rx#: [id number] Sodium Chloride 0.9% 1, 1200 1200 000 ml @ 150 mls/hr IV . Q6H40M [facility] Rx#:[id number] vinCRIStine SULFATE 0.9 16.968 16.8 mg In Sodium Chloride 0.9 % 50 ml @ 2.121 mls/hr IV Q24H [facility] Rx#:[id number] Oral 350 Other: # Voids 1 4 Weight 122.5 kg 120.202 kg - Constitutional General appearance: disheveled, morbidly obese - EENT Eyes: EOMI, PERRLA, poor dentition ENT: hard of hearing Ears: bilateral: normal - Neck Neck: normal ROM Carotids: bilateral: upstroke normal - Respiratory Respiratory: bilateral: CTA - Cardiovascular Rhythm: regular Heart sounds: normal: S1, S2 - Gastrointestinal General gastrointestinal: decreased bowel sounds, soft - Integumentary Integumentary: normal turgor - Neurologic Neurologic: CNII-XII intact - Musculoskeletal Musculoskeletal: gait normal, generalized weakness, strength equal bilaterally - Psychiatric Psychiatric: A&O x's 3, appropriate affect, intact judgment & insight Results - Laboratory Findings CBC and BMP: 10/18/18 06:54 10/18/18 06:54 Abnormal lab findings: Abnormal Labs 10/17/18 10/17/18 10/17/18 09:53 09:53 17:34 RBC 3.29 L Hgb 10.0 L D Hct 32.8 L MCV MCHC 30.5 L RDW 17.2 H Lymphocytes # 0.6 L Chloride 110 H Creatinine Glucose 116 H POC Glucose (mg/dL) 197 H Total Protein 5.3 L Albumin 3.2 L 10/17/18 10/18/18 10/18/18 20:09 06:54 06:54 RBC 3.14 L Hgb 9.8 L Hct 31.9 L MCV 101.8 H MCHC 30.8 L RDW 17.8 H Lymphocytes # 0.4 L Chloride 111 H Creatinine 0.50 L Glucose 173 H POC Glucose (mg/dL) 221 H Total Protein 5.4 L Albumin 3.2 L 10/18/18 10/18/18 07:01 17:24 RBC Hgb Hct MCV MCHC RDW Lymphocytes # Chloride Creatinine Glucose POC Glucose (mg/dL) 174 H 173 H Total Protein Albumin Assessment and Plan Assessment: Moderate degree of sleep disorder breathing and sleep apnea Severe restless leg syndrome Chronic persistent asthma mild to moderate Diffuse large B-cell lymphoma with extranodal site Bradycardia Chronic pain syndrome Plan: We will initiate patient on the CPAP of 10 with 0.28 FiO2 oxygen each night and when necessary during the day Bronchodilators as needed Requip 1 mg at bedtime Further recommendations pending plan of care as per clinical response of the patient
[2018-10-18 20:27] LABS: Glucose,Whole Blood 143 mg/dL (75-99)
[2018-10-18] MEDS: MONTELUKAST 10 MG TAB PO SCH (21:17)
[2018-10-18] MEDS: ATORVASTATIN 40 MG TAB PO SCH (21:17)
--- NOTE | 2018-10-18 23:18 | P.PN ---
Subjective Progress Note Date: 10/18/18 The pt is s/p D #2 of her high dose infusional chemo with R - EPOCH. She denied any new complaints. No f/c/n/v/diarrhea. Her heart rate again dropped while asleep, with no symptoms. Objective - Vital Signs Vital signs: Vital Signs Temp 97.9 F 10/18/18 20:00 Pulse 67 10/18/18 20:00 Resp 18 10/18/18 20:00 BP 112/53 10/18/18 20:00 Pulse Ox 95 10/18/18 20:00 Intake & Output 10/18/18 10/18/18 10/19/18 06:59 18:59 06:59 Intake Total 2746.531 1711.2 434.059 Balance 2746.531 1711.2 434.059 Weight 122.5 kg 120.202 kg Intake: Intake, IV Titration 5023.922 5016.2 184.059 Amount DOXOrubicin HCL 22 mg In 97.875 86.4 10.875 Sodium Chloride 0.9% 250 ml @ 10.875 mls/hr IV Q24H [facility] Rx#:[id number] Etoposide 110 mg In 189.567 168 21.063 Sodium Chloride 0.9% 500 ml 500 ml @ 21.063 mls/hr IV Q24H [facility] Rx#: [id number] Sodium Chloride 0.9% 1, 1350 1200 150 000 ml @ 150 mls/hr IV . Q6H40M [facility] Rx#:[id number] vinCRIStine SULFATE 0.9 19.089 16.8 2.121 mg In Sodium Chloride 0.9 % 50 ml @ 2.121 mls/hr IV Q24H [facility] Rx#:[id number] Oral 1090 240 250 Other: Voiding Method Toilet Toilet # Voids 1 4 1 - Constitutional General appearance: Present: no acute distress - EENT Eyes: Present: EOMI ENT: Present: hearing grossly normal, normal oropharynx - Respiratory Respiratory: bilateral: CTA - Cardiovascular Rhythm: regular Heart sounds: normal: S1, S2 - Gastrointestinal General gastrointestinal: Present: normal bowel sounds, soft - Integumentary Integumentary: Present: normal - Neurologic Neurologic: Present: CNII-XII intact - Musculoskeletal Musculoskeletal: Present: strength equal bilaterally - Psychiatric Psychiatric: Present: A&O x's 3, appropriate affect - Labs CBC & Chem 7: 10/18/18 06:54 10/18/18 06:54 Labs: Abnormal Lab Results - Last 24 Hours (Table) 10/18/18 10/18/18 10/18/18 Range/Units 06:54 06:54 07:01 RBC 3.14 L (3.80-5.40) m/uL Hgb 9.8 L (11.4-16.0) gm/dL Hct 31.9 L (34.0-46.0) % MCV 101.8 H (80.0-100.0) fL MCHC 30.8 L (31.0-37.0) g/dL RDW 17.8 H (11.5-15.5) % Lymphocytes # 0.4 L (1.0-4.8) k/uL Chloride 111 H (98-107) mmol/L Creatinine 0.50 L (0.52-1.04) mg/dL Glucose 173 H (74-99) mg/dL POC Glucose (mg/dL) 174 H (75-99) mg/dL Total Protein 5.4 L (6.3-8.2) g/dL Albumin 3.2 L (3.5-5.0) g/dL 10/18/18 10/18/18 Range/Units 17:24 20:26 RBC (3.80-5.40) m/uL Hgb (11.4-16.0) gm/dL Hct (34.0-46.0) % MCV (80.0-100.0) fL MCHC (31.0-37.0) g/dL RDW (11.5-15.5) % Lymphocytes # (1.0-4.8) k/uL Chloride (98-107) mmol/L Creatinine (0.52-1.04) mg/dL Glucose (74-99) mg/dL POC Glucose (mg/dL) 173 H 143 H (75-99) mg/dL Total Protein (6.3-8.2) g/dL Albumin (3.5-5.0) g/dL Assessment and Plan (1) Diffuse large B-cell lymphoma of extranodal site Narrative/Plan: Pt is C #4 of high dose infusional chemo with R - EPOCH, D#2. She is tolerating her regimen well so far. Continue treatment per protocol. Continue to monitor with clinical exams and labs, which have been ordered. Current Visit: Yes Status: Acute Priority: High Code(s): C83.39 - DIFFUSE LARGE B-CELL LYMPHOMA, EXTRNOD AND SOLID ORGAN SITES SNOMED Code(s): 755570674 (2) Bradyarrhythmia Narrative/Plan: This has been asymptomatic. Cardiology is following. A pulmonary cause is felt to be more likely, specifically sleep apnea. She will start using her CPAP tonight Current Visit: Yes Status: Acute Priority: High Code(s): I49.8 - OTHER SPECIFIED CARDIAC ARRHYTHMIAS SNOMED Code(s): 774257686 (3) Antineoplastic chemotherapy induced anemia Narrative/Plan: Hgb is in a safe range . Continue to monitor and supplement if needed Current Visit: No Status: Acute Priority: Medium Code(s): D64.81 - ANEMIA DUE TO ANTINEOPLASTIC CHEMOTHERAPY; T45.1X5A - ADVERSE EFFECT OF ANTINEOPLASTIC AND IMMUNOSUP DRUGS, INIT SNOMED Code(s): 470675028
[2018-10-19] MEDS: HYDROcodone/APAP 10-325MG 1 EACH TAB PO PRN ×5 (02:49→21:32)
[2018-10-19] MEDS: SODIUM CHLORIDE 0.9% 1,000 ML IV SCH ×5 (02:52→19:13)
[2018-10-19] MEDS: LEVOTHYROXINE 75 MCG TAB PO SCH (05:25)
--- NOTE | 2018-10-19 05:34 | CONS ---
CONSULTATION SUBJECTIVE: A 68-year-old white female, here for chemotherapy for beta lymphoma of the appendix area complaining of obstructive sleep apnea, cough, dyspnea, cough, sleep apnea. She wants to know her result of sleep apnea test. She is on CPAP with 10 at this time. REVIEW OF SYSTEMS: Fourteen point review of systems negative except for as mentioned in HPI. This is her last chemotherapy she is getting for B-cell lymphoma at this time of the right colon, cecum. PAST MEDICAL HISTORY: Asthma, coronary artery disease, cancer, diabetes mellitus, hearing disorder, deafness, hypertension, osteoarthritis, obstructive sleep apnea, right colectomy, ischemic heart disease, type 2 diabetes mellitus, deafness, vertigo. SURGERY: Bariatric surgery, bowel resection, cholecystectomy, CABG, heart catheterization, hernia repair, joint replacement, orthopedic surgery, tubal ligation, bilateral carpal tunnel releases, CABG x1 vessel. FAMILY HISTORY: Mother negative. Father alcohol abuse. Sister cancer of the lung. MEDICATIONS: See list. PHYSICAL EXAMINATION: Temp 97 to 98, pulse 70s to 80s, respiratory rate 16 to 18, blood pressure is 120s to 150s over 70s. O2 of 95% to 100%. CARDIOVASCULAR: S1, S2. INTEGUMENT: Shows baldness. LUNGS: Scattered wheeze at the bases. HEMATOLOGY: Negative Homans. GI: Soft. Hemoglobin 9.8. ASSESSMENT: 1. Beta cell lymphoma. 2. Bradycardia. 3. Chronic pain syndrome. 4. Hypothyroidism. 5. Asthma. 6. Obstructive sleep apnea. 7. Severe restless legs. Increased restless leg medicine to 0.5 of Requip up to 1 mg. Continue home medicines. Follow up in next 24 to 48 hours. MMODL / IJN: [id number] /
[2018-10-19 07:04] LABS: Glucose,Whole Blood 196 mg/dL (75-99)
[2018-10-19] MEDS: SYMBICORT 80-4.5 MCG INHALER INHALATION SCH ×2 (07:23→21:24)
[2018-10-19] MEDS: ACYCLOVIR 200 MG CAP PO SCH ×2 (07:30→16:49)
[2018-10-19] MEDS: GLIMEPIRIDE 1 MG TAB PO SCH (07:30)
[2018-10-19] MEDS: PANTOPRAZOLE 40 MG TABLET PO SCH ×2 (07:31→16:49)
[2018-10-19] MEDS: INSULIN ASPART (NovoLOG) 100 UNIT/ML VIAL SQ SCH ×4 (07:31→21:28)
[2018-10-19] MEDS: OFLOXACIN 0.3% OPHTH DROPS 5 ML BOTTLE RIGHT EAR SCH ×2 (07:37→21:30)
[2018-10-19 08:29] LABS: Anisocytosis Slight; Basophils % (A) 0 %; Eosinophils % (A) 0 %; HCT 30.5 % (34.0-46.0); HGB 9.3 gm/dL (11.4-16.0); Hypochromasia Marked; Lymphocytes # (A) 0.4 k/uL (1.0-4.8); Lymphocytes % (A) 7 %; MCH 30.6 pg (25.0-35.0); MCHC 30.6 g/dL (31.0-37.0); MCV 100.2 fL (80.0-100.0); Macrocytosis Slight; Mean Platelet Volume 6.9; Monocytes # (A) 0.3 k/uL (0-1.0); Monocytes % (A) 5 %; Neutrophils # (A) 4.8 k/uL (1.3-7.7); Neutrophils % (A) 86 %; Platelet Count 294 k/uL (150-450); RBC 3.05 m/uL (3.80-5.40); RDW 17.6 % (11.5-15.5); WBC 5.6 k/uL (3.8-10.6)
[2018-10-19 08:48] LABS: Potassium 4.3 mmol/L (3.5-5.1)
[2018-10-19 08:50] LABS: ALT 21 U/L (9-52); AST 13 U/L (14-36); Albumin 3.2 g/dL (3.5-5.0); Alkaline Phosphatase 60 U/L (38-126); Anion Gap 4 mmol/L; Blood Urea Nitrogen 20 mg/dL (7-17); Carbon Dioxide 26 mmol/L (22-30); Chloride 111 mmol/L (98-107); Glucose 179 mg/dL (74-99); Sodium 141 mmol/L (137-145); Total Bilirubin 0.5 mg/dL (0.2-1.3); Total Protein 5.4 g/dL (6.3-8.2)
[2018-10-19] MEDS: LISINOPRIL 5 MG TAB PO SCH (08:57)
[2018-10-19] MEDS: predniSONE 50 MG TAB PO SCH ×2 (08:57→21:29)
[2018-10-19] MEDS: predniSONE 10 MG TAB PO SCH ×2 (08:58→21:29)
[2018-10-19] MEDS: SALT AND SODA MOUTHWASH 1,000 ML PO SCH ×4 (08:58→21:54)
[2018-10-19] MEDS: ENOXAPARIN 40 MG/0.4 ML SYRINGE SQ SCH (08:58)
[2018-10-19 11:09] LABS: Glucose,Whole Blood 101 mg/dL (75-99)
[2018-10-19] MEDS: CYANOCOBALAMIN 500 MCG TAB PO SCH (12:16)
--- NOTE | 2018-10-19 15:44 | PN ---
PROGRESS NOTE SUBJECTIVE: This 68-year-old white female with beta cell lymphoma, on chemotherapy in the hospital, asthma, appears to be doing well. Hemoglobin is 9.3 today. Sugars are in the mid 100s. Temperature 98.2, pulse 53 up to 97, blood pressure 130s to 150s over 50 to 96. She is 96% on room air. Lungs are clear. CARDIOVASCULAR: S1, S2. Abdomen is soft. HEMATOLOGY: Negative Homans. ASSESSMENT: 1. She is on day 3 of high-dose infusional chemotherapy. 2. Bradycardia, not be apparent at this time. 3. Chronic anemia. 4. Acute renal insufficiency. 5. Bradyarrhythmia, improved. 6. chemotherapy-induced anemia. Continue current treatments. Follow up in next 24 to 48 hours. CPAP at night for obstructive sleep apnea. MMODL / IJN: [id number] /
--- NOTE | 2018-10-19 16:57 | P.PN ---
Subjective Progress Note Date: 10/19/18 Principal diagnosis: Admit for CIVI R-EPOCH for DLBCL In f/u pt has no c/o on a 14 point ROS, tolerating diet, ambulating, discomforts managed Objective - Vital Signs Vital signs: Vital Signs Temp 98.2 F 10/19/18 12:07 Pulse 68 10/19/18 12:07 Resp 18 10/19/18 12:07 BP 133/59 10/19/18 12:07 Pulse Ox 96 10/19/18 12:07 Intake & Output 10/18/18 10/19/18 10/19/18 18:59 06:59 18:59 Intake Total 1711.2 1906.501 Balance 1711.2 1906.501 Weight 120.202 kg 127.5 kg Intake: Intake, IV Titration 1471.2 1656.501 Amount DOXOrubicin HCL 22 mg In 86.4 97.875 Sodium Chloride 0.9% 250 ml @ 10.875 mls/hr IV Q24H [facility] Rx#:[id number] Etoposide 110 mg In 168 189.567 Sodium Chloride 0.9% 500 ml 500 ml @ 21.063 mls/hr IV Q24H [facility] Rx#: [id number] Sodium Chloride 0.9% 1, 1200 1350 000 ml @ 150 mls/hr IV . Q6H40M [facility] Rx#:[id number] vinCRIStine SULFATE 0.9 16.8 19.059 mg In Sodium Chloride 0.9 % 50 ml @ 2.121 mls/hr IV Q24H [facility] Rx#:[id number] Oral 240 250 Other: Voiding Method Toilet Toilet # Voids 4 1 4 # Bowel Movements 1 - Constitutional General appearance: Present: cooperative, no acute distress, obese - EENT Eyes: Present: anicteric sclerae, EOMI ENT: Present: hearing grossly normal, normal oropharynx - Respiratory Respiratory: bilateral: CTA - Cardiovascular Rhythm: regular Heart sounds: normal: S1, S2 Abnormal Heart Sounds: Absent: systolic murmur, diastolic murmur, rub, S3 Gallop , S4 Gallop, click, other - Peripheral edema leg Peripheral Edema: bilateral: None - Gastrointestinal General gastrointestinal: Present: normal bowel sounds, soft. Absent: absent bowel sounds, decreased bowel sounds, distended, hepatomegaly, hyperactive bowel sounds, organomegaly, rigid, scaphoid, splenomegaly, tenderness, umbilical hernia, ventral hernia - Integumentary Integumentary: Present: normal - Neurologic Neurologic: Present: CNII-XII intact - Musculoskeletal Musculoskeletal: Present: strength equal bilaterally - Psychiatric Psychiatric: Present: A&O x's 3, appropriate affect, intact judgment & insight - Labs CBC & Chem 7: 10/19/18 07:56 10/19/18 07:56 Labs: Abnormal Lab Results - Last 24 Hours (Table) 10/18/18 10/18/18 10/19/18 Range/Units 17:24 20:26 07:02 RBC (3.80-5.40) m/uL Hgb (11.4-16.0) gm/dL Hct (34.0-46.0) % MCV (80.0-100.0) fL MCHC (31.0-37.0) g/dL RDW (11.5-15.5) % Lymphocytes # (1.0-4.8) k/uL Chloride (98-107) mmol/L BUN (7-17) mg/dL Glucose (74-99) mg/dL POC Glucose (mg/dL) 173 H 143 H 196 H (75-99) mg/dL AST (14-36) U/L Total Protein (6.3-8.2) g/dL Albumin (3.5-5.0) g/dL 10/19/18 10/19/18 10/19/18 Range/Units 07:56 07:56 11:08 RBC 3.05 L (3.80-5.40) m/uL Hgb 9.3 L (11.4-16.0) gm/dL Hct 30.5 L (34.0-46.0) % MCV 100.2 H (80.0-100.0) fL MCHC 30.6 L (31.0-37.0) g/dL RDW 17.6 H (11.5-15.5) % Lymphocytes # 0.4 L (1.0-4.8) k/uL Chloride 111 H (98-107) mmol/L BUN 20 H (7-17) mg/dL Glucose 179 H (74-99) mg/dL POC Glucose (mg/dL) 101 H (75-99) mg/dL AST 13 L (14-36) U/L Total Protein 5.4 L (6.3-8.2) g/dL Albumin 3.2 L (3.5-5.0) g/dL Assessment and Plan (1) Diffuse large B-cell lymphoma of extranodal site Narrative/Plan: Cont CIVI R-EPOCH regimen, cycle 4. Home meds Supportive meds ordered Labs daily Current Visit: Yes Status: Acute Priority: High Code(s): C83.39 - DIFFUSE LARGE B-CELL LYMPHOMA, EXTRNOD AND SOLID ORGAN SITES SNOMED Code(s): 369420745 (2) Bradyarrhythmia Narrative/Plan: Cardiology following, pt on telemetry Current Visit: Yes Status: Acute Priority: High Code(s): I49.8 - OTHER SPECIFIED CARDIAC ARRHYTHMIAS SNOMED Code(s): 522722411 (3) Chronic pain syndrome Narrative/Plan: Cont home pain meds Current Visit: No Status: Chronic Priority: Low Code(s): G89.4 - CHRONIC PAIN SYNDROME SNOMED Code(s): 643216423 Plan: GI and DVT prophylaxis
[2018-10-19 17:20] LABS: Glucose,Whole Blood 187 mg/dL (75-99)
[2018-10-19] MEDS: FAMOTIDINE 20 MG/2 ML VIAL IV SCH (19:12)
[2018-10-19] MEDS: ONDANSETRON 16 MG in SODIUM CHLORIDE 0.9% 50 ML IVPB SCH (19:12)
[2018-10-19] MEDS: DOXORUBICIN HCL IV SCH (19:34)
[2018-10-19] MEDS: SODIUM CHLORIDE 0.9% IV SCH ×3 (19:34→19:35)
[2018-10-19] MEDS: ETOPOSIDE IV SCH (19:34)
[2018-10-19] MEDS: VINCRISTINE SULFATE IV SCH (19:35)
[2018-10-19 19:52] LABS: Glucose,Whole Blood 196 mg/dL (75-99)
[2018-10-19] MEDS: ATORVASTATIN 40 MG TAB PO SCH (21:29)
[2018-10-19] MEDS: MONTELUKAST 10 MG TAB PO SCH (21:29)
[2018-10-20] MEDS: HYDROcodone/APAP 10-325MG 1 EACH TAB PO PRN ×5 (02:24→21:07)
[2018-10-20] MEDS: SODIUM CHLORIDE 0.9% 1,000 ML IV SCH ×4 (02:25→21:11)
[2018-10-20] MEDS ORDERED: IPRATROPIUM-ALBUTEROL 3 ML NEB ONE (04:36)
[2018-10-20] MEDS: LEVOTHYROXINE 75 MCG TAB PO SCH (05:52)
[2018-10-20 07:00] LABS: Glucose,Whole Blood 185 mg/dL (75-99)
[2018-10-20] MEDS: OFLOXACIN 0.3% OPHTH DROPS 5 ML BOTTLE RIGHT EAR SCH ×2 (07:56→21:11)
[2018-10-20] MEDS: predniSONE 50 MG TAB PO SCH ×2 (07:56→21:07)
[2018-10-20] MEDS: PANTOPRAZOLE 40 MG TABLET PO SCH ×2 (07:56→17:07)
[2018-10-20] MEDS: LISINOPRIL 5 MG TAB PO SCH (07:56)
[2018-10-20] MEDS: ACYCLOVIR 200 MG CAP PO SCH ×2 (07:56→17:07)
[2018-10-20] MEDS: predniSONE 10 MG TAB PO SCH ×2 (07:56→21:06)
[2018-10-20] MEDS: INSULIN ASPART (NovoLOG) 100 UNIT/ML VIAL SQ SCH ×4 (07:57→21:06)
[2018-10-20] MEDS: ENOXAPARIN 40 MG/0.4 ML SYRINGE SQ SCH (07:57)
[2018-10-20] MEDS: GLIMEPIRIDE 1 MG TAB PO SCH (07:57)
[2018-10-20] MEDS: SALT AND SODA MOUTHWASH 1,000 ML PO SCH ×4 (07:58→22:10)
[2018-10-20] MEDS: SYMBICORT 80-4.5 MCG INHALER INHALATION SCH ×2 (08:07→20:31)
[2018-10-20 08:46] LABS: Anisocytosis Slight; Basophils % (A) 0 %; Eosinophils % (A) 0 %; HCT 29.2 % (34.0-46.0); HGB 9.1 gm/dL (11.4-16.0); Hypochromasia Marked; Lymphocytes # (A) 0.3 k/uL (1.0-4.8); Lymphocytes % (A) 8 %; MCH 31.2 pg (25.0-35.0); MCHC 31.1 g/dL (31.0-37.0); MCV 100.2 fL (80.0-100.0); Macrocytosis Slight; Mean Platelet Volume 6.3; Monocytes # (A) 0.4 k/uL (0-1.0); Monocytes % (A) 10 %; Neutrophils # (A) 2.9 k/uL (1.3-7.7); Neutrophils % (A) 81 %; Platelet Count 256 k/uL (150-450); RBC 2.91 m/uL (3.80-5.40); RDW 17.3 % (11.5-15.5); WBC 3.6 k/uL (3.8-10.6)
[2018-10-20] MEDS: MECLIZINE 25 MG TAB PO PRN (08:48)
[2018-10-20 09:11] LABS: ALT 27 U/L (9-52); AST 13 U/L (14-36); Alkaline Phosphatase 57 U/L (38-126); Anion Gap 5 mmol/L; Blood Urea Nitrogen 23 mg/dL (7-17); Calcium 9.8 mg/dL (8.4-10.2); Carbon Dioxide 25 mmol/L (22-30); Chloride 110 mmol/L (98-107); Glucose 172 mg/dL (74-99); Potassium 4.3 mmol/L (3.5-5.1); Sodium 140 mmol/L (137-145); Total Bilirubin 0.5 mg/dL (0.2-1.3)
[2018-10-20] MEDS: IPRATROPIUM-ALBUTEROL 3 ML NEB INHALATION PRN (10:10)
[2018-10-20 12:10] LABS: Glucose,Whole Blood 156 mg/dL (75-99)
[2018-10-20] MEDS: CYANOCOBALAMIN 500 MCG TAB PO SCH (12:30)
[2018-10-20] MEDS ORDERED: POLYETHYLENE GLYCOL 3350 17 GM POWD.PACK PO STA (16:17)
[2018-10-20] MEDS ORDERED: POLYETHYLENE GLYCOL 3350 17 GM POWD.PACK PO PRN (16:17)
--- NOTE | 2018-10-20 16:23 | P.PN ---
Subjective Progress Note Date: 10/20/18 Principal diagnosis: Admit for CIVI R-EPOCH for DLBCL In f/u pt has no c/o on a 14 point ROS, tolerating diet, ambulating, dose not have any palpations, NASEEM, chest pain, wants treatment for constipation Objective - Vital Signs Vital signs: Vital Signs Temp 97.9 F 10/20/18 12:00 Pulse 48 L 10/20/18 12:00 Resp 16 10/20/18 12:00 BP 168/76 10/20/18 12:00 Pulse Ox 98 10/20/18 12:00 Intake & Output 10/19/18 10/20/18 10/20/18 18:59 06:59 18:59 Intake Total 2650 1474 Balance 2650 1474 Weight 126.8 kg Intake: Intake, IV Titration 1989 1474 Amount DOXOrubicin HCL 22 mg In 182 80 Sodium Chloride 0.9% 250 ml @ 10.875 mls/hr IV Q24H [facility] Rx#:[id number] Etoposide 110 mg In 206 176 Sodium Chloride 0.9% 500 ml 500 ml @ 21.063 mls/hr IV Q24H [facility] Rx#: [id number] Ondansetron 16 mg In 50 Sodium Chloride 0.9% 50 ml @ 100 mls/hr IVPB Q24H [facility] Rx#:[id number] Sodium Chloride 0.9% 1, 1530 1200 000 ml @ 150 mls/hr IV . Q6H40M [facility] Rx#:[id number] vinCRIStine SULFATE 0.9 22 18 mg In Sodium Chloride 0.9 % 50 ml @ 2.121 mls/hr IV Q24H [facility] Rx#:[id number] Oral 660 Other: Voiding Method Toilet Toilet Toilet # Voids 4 3 # Bowel Movements 1 1 - Constitutional General appearance: Present: morbidly obese, no acute distress - EENT Eyes: Present: anicteric sclerae, EOMI ENT: Present: hearing grossly normal, normal oropharynx - Respiratory Respiratory: - Cardiovascular Details: S1S2, bradycardia Heart sounds: - Gastrointestinal Gastrointestinal Comment(s): soft, BS + - Integumentary Integumentary: Present: normal turgor, pale - Neurologic Neurologic: Present: CNII-XII intact - Musculoskeletal Musculoskeletal: Present: strength equal bilaterally - Psychiatric Psychiatric: Present: A&O x's 3, appropriate affect, intact judgment & insight - Labs CBC & Chem 7: 10/20/18 07:46 10/20/18 07:46 Labs: Abnormal Lab Results - Last 24 Hours (Table) 10/19/18 10/19/18 10/20/18 Range/Units 17:18 19:51 06:58 WBC (3.8-10.6) k/uL RBC (3.80-5.40) m/uL Hgb (11.4-16.0) gm/dL Hct (34.0-46.0) % MCV (80.0-100.0) fL RDW (11.5-15.5) % Lymphocytes # (1.0-4.8) k/uL Chloride (98-107) mmol/L BUN (7-17) mg/dL Glucose (74-99) mg/dL POC Glucose (mg/dL) 187 H 196 H 185 H (75-99) mg/dL AST (14-36) U/L Total Protein (6.3-8.2) g/dL Albumin (3.5-5.0) g/dL 10/20/18 10/20/18 10/20/18 Range/Units 07:46 07:46 12:09 WBC 3.6 L (3.8-10.6) k/uL RBC 2.91 L (3.80-5.40) m/uL Hgb 9.1 L (11.4-16.0) gm/dL Hct 29.2 L (34.0-46.0) % MCV 100.2 H (80.0-100.0) fL RDW 17.3 H (11.5-15.5) % Lymphocytes # 0.3 L (1.0-4.8) k/uL Chloride 110 H (98-107) mmol/L BUN 23 H (7-17) mg/dL Glucose 172 H (74-99) mg/dL POC Glucose (mg/dL) 156 H (75-99) mg/dL AST 13 L (14-36) U/L Total Protein 5.0 L (6.3-8.2) g/dL Albumin 3.0 L (3.5-5.0) g/dL Assessment and Plan (1) Diffuse large B-cell lymphoma of extranodal site Narrative/Plan: Cont CIVI R-EPOCH regimen, cycle 4. Final treatment. Imaging and f/u in about 1 month Home meds Supportive meds ordered Labs daily DC tomorrow night after completion of treatment Appt for GCSF and CBC in DC summary Current Visit: Yes Status: Acute Priority: High Code(s): C83.39 - DIFFUSE LARGE B-CELL LYMPHOMA, EXTRNOD AND SOLID ORGAN SITES SNOMED Code(s): 932102827 (2) Bradyarrhythmia Narrative/Plan: Cardiology following, pt on telemetry Current Visit: Yes Status: Acute Priority: High Code(s): I49.8 - OTHER SPECIFIED CARDIAC ARRHYTHMIAS SNOMED Code(s): 203784045 (3) Chronic pain syndrome Narrative/Plan: Cont home pain meds Current Visit: No Status: Chronic Priority: Low Code(s): G89.4 - CHRONIC PAIN SYNDROME SNOMED Code(s): 609008417 Plan: GI and DVT prophylaxis Medications sent to her pharmacy on 10th DC tomorrow night after Tx completes
[2018-10-20 16:44] LABS: Glucose,Whole Blood 203 mg/dL (75-99)
--- NOTE | 2018-10-20 17:40 | P.PN ---
Subjective Progress Note Date: 10/19/18 (late entry note) Principal diagnosis: Sleep disorder breathing and sleep apnea, severe morbid obesity, restless leg syndrome, diffuse large B-cell lymphoma of extranodal site is status post chemotherapy, bradycardia, chronic pain syndrome, 10/19/2018, patient seen eval reexamined during the rounds clinically has been doing well awake and alert breathing comfortably no obvious distress present patient has been getting more comfortable with his CPAP machine is still trying to use it at night nighttime, has been off of supplemental oxygen breathing comfortably no obvious distress present patient has been receiving 1 mg of the record was seems to be helping with her severe restless leg Mrs. solorzano is a 68-year-old female well-known to P for prior medical history of chronic persistent asthma has been admitted into the hospital for fourths and last cycle of the chemotherapy for diffuse large B-cell lymphoma, patient recently underwent a polysomnogram on outpatient setting still has [id number] degree of sleep apnea CPAP titration study however is pending, patient has a ongoing long-standing history of restless leg syndrome she has been on Requip dose has been escalated to 1 mg at bedtime which seems to be working, review of the data revealed that previously patient was on CPAP of 10 with 1028% oxygen was initiated for now Review of the data revealed that Patient is admitted for her 4thHer cycle of REPOCH treatment for diffuse large B-cell lymphoma of the gastrointestinal tract, recent PET showed no residual adenopathy and no PET avid areas. We did have Cardiology evaluation with clearance to continue chemotherapy. She did have a tube placed in her ear with resolution of impaired hearing.Pt admitted with no c/o on a 14 point ROS, appetite is fair to good, back pain managed, fully ambulatory. Patient was found to have RLQ abdominal pain associated with intermittent diarrhea. Colonoscopy in 03/02 was negative. Due to persistence of the symptoms pt had CT that showed inflammation of the right colon and cecum. She had 06/16/18, pathology positive for diffuse large B-cell lymphoma infiltrating the colonic and terminal ileum with involvement of at least one mesocolic lymph node. Staging PET showed uptake only in the right lower quadrant of the abdomen. There was no evidence of double/triple hit mutations. Treatment recommendation was for 6 cycles of continuous IV infusion REPOCH. Patient started treatment 08/01/2018. She has required Cardiac work up due to bradycardia during treatment, she had good response on PET 10/04 Objective - Vital Signs Vital signs: Vitals include blood pressure is 133/59, respiratory rate is 18, heart rate 68, temperature 98.2, saturation 96% room air Intake & Output, reviewed - Exam - Constitutional General appearance: disheveled, morbidly obese - EENT Eyes: EOMI, PERRLA, poor dentition ENT: hard of hearing Ears: bilateral: normal - Neck Neck: normal ROM Carotids: bilateral: upstroke normal - Respiratory Respiratory: bilateral: CTA - Cardiovascular Rhythm: regular Heart sounds: normal: S1, S2 - Gastrointestinal General gastrointestinal: decreased bowel sounds, soft - Integumentary Integumentary: normal turgor - Neurologic Neurologic: CNII-XII intact - Musculoskeletal Musculoskeletal: gait normal, generalized weakness, strength equal bilaterally - Psychiatric Psychiatric: A&O x's 3, appropriate affect, intact judgment & insight - Labs CBC & Chem 7: 10/20/18 07:46 10/20/18 07:46 Labs: Abnormal Lab Results - Last 24 Hours (Table) 10/19/18 10/20/18 10/20/18 Range/Units 19:51 06:58 07:46 WBC 3.6 L (3.8-10.6) k/uL RBC 2.91 L (3.80-5.40) m/uL Hgb 9.1 L (11.4-16.0) gm/dL Hct 29.2 L (34.0-46.0) % MCV 100.2 H (80.0-100.0) fL RDW 17.3 H (11.5-15.5) % Lymphocytes # 0.3 L (1.0-4.8) k/uL Chloride (98-107) mmol/L BUN (7-17) mg/dL Glucose (74-99) mg/dL POC Glucose (mg/dL) 196 H 185 H (75-99) mg/dL AST (14-36) U/L Total Protein (6.3-8.2) g/dL Albumin (3.5-5.0) g/dL 10/20/18 10/20/18 10/20/18 Range/Units 07:46 12:09 16:42 WBC (3.8-10.6) k/uL RBC (3.80-5.40) m/uL Hgb (11.4-16.0) gm/dL Hct (34.0-46.0) % MCV (80.0-100.0) fL RDW (11.5-15.5) % Lymphocytes # (1.0-4.8) k/uL Chloride 110 H (98-107) mmol/L BUN 23 H (7-17) mg/dL Glucose 172 H (74-99) mg/dL POC Glucose (mg/dL) 156 H 203 H (75-99) mg/dL AST 13 L (14-36) U/L Total Protein 5.0 L (6.3-8.2) g/dL Albumin 3.0 L (3.5-5.0) g/dL Assessment and Plan Assessment: Moderate degree of sleep disorder breathing and sleep apnea Severe restless leg syndrome Chronic persistent asthma mild to moderate Diffuse large B-cell lymphoma with extranodal site Bradycardia Chronic pain syndrome Plan: We will initiate patient on the CPAP of 10 with 0.28 FiO2 oxygen each night and when necessary during the day Bronchodilators as needed Requip 1 mg at bedtime Further recommendations pending plan of care as per clinical response of the patient Time with Patient: Greater than 30
--- NOTE | 2018-10-20 17:42 | P.PN ---
Subjective Progress Note Date: 10/20/18 Principal diagnosis: Sleep disorder breathing and sleep apnea, severe morbid obesity, restless leg syndrome, diffuse large B-cell lymphoma of extranodal site is status post chemotherapy, bradycardia, chronic pain syndrome, 10/20/2018, , patient seen eval reexamined during the rounds clinically overall no significant change from baseline continued to have stable breathing Petrin, denies any chest pain, patient remains in room air 10/19/2018, patient seen eval reexamined during the rounds clinically has been doing well awake and alert breathing comfortably no obvious distress present patient has been getting more comfortable with his CPAP machine is still trying to use it at night nighttime, has been off of supplemental oxygen breathing comfortably no obvious distress present patient has been receiving 1 mg of the record was seems to be helping with her severe restless leg Mrs. solorzano is a 68-year-old female well-known to for prior medical history of chronic persistent asthma has been admitted into the hospital for fourths and last cycle of the chemotherapy for diffuse large B-cell lymphoma, patient recently underwent a polysomnogram on outpatient setting still has [id number] degree of sleep apnea CPAP titration study however is pending, patient has a ongoing long-standing history of restless leg syndrome she has been on Requip dose has been escalated to 1 mg at bedtime which seems to be working, review of the data revealed that previously patient was on CPAP of 10 with 1028% oxygen was initiated for now Review of the data revealed that Patient is admitted for her 4thHer cycle of REPOCH treatment for diffuse large B-cell lymphoma of the gastrointestinal tract, recent PET showed no residual adenopathy and no PET avid areas. We did have Cardiology evaluation with clearance to continue chemotherapy. She did have a tube placed in her ear with resolution of impaired hearing.Pt admitted with no c/o on a 14 point ROS, appetite is fair to good, back pain managed, fully ambulatory. Patient was found to have RLQ abdominal pain associated with intermittent diarrhea. Colonoscopy in 03/02 was negative. Due to persistence of the symptoms pt had CT that showed inflammation of the right colon and cecum. She had 06/16/18, pathology positive for diffuse large B-cell lymphoma infiltrating the colonic and terminal ileum with involvement of at least one mesocolic lymph node. Staging PET showed uptake only in the right lower quadrant of the abdomen. There was no evidence of double/triple hit mutations. Treatment recommendation was for 6 cycles of continuous IV infusion REPOCH. Patient started treatment 08/01/2018. She has required Cardiac work up due to bradycardia during treatment, she had good response on PET 10/04 Objective - Vital Signs Vital signs: Vital Signs Temp 97.8 F 10/20/18 16:00 Pulse 48 L 10/20/18 16:00 Resp 16 10/20/18 16:00 BP 153/70 10/20/18 16:00 Pulse Ox 98 10/20/18 16:00 Intake & Output 10/19/18 10/20/18 10/20/18 18:59 06:59 18:59 Intake Total 2650 1474 Balance 2650 1474 Weight 126.8 kg Intake: Intake, IV Titration 1989 1474 Amount DOXOrubicin HCL 22 mg In 182 80 Sodium Chloride 0.9% 250 ml @ 10.875 mls/hr IV Q24H [facility] Rx#:[id number] Etoposide 110 mg In 206 176 Sodium Chloride 0.9% 500 ml 500 ml @ 21.063 mls/hr IV Q24H [facility] Rx#: [id number] Ondansetron 16 mg In 50 Sodium Chloride 0.9% 50 ml @ 100 mls/hr IVPB Q24H [facility] Rx#:[id number] Sodium Chloride 0.9% 1, 1530 1200 000 ml @ 150 mls/hr IV . Q6H40M [facility] Rx#:[id number] vinCRIStine SULFATE 0.9 22 18 mg In Sodium Chloride 0.9 % 50 ml @ 2.121 mls/hr IV Q24H [facility] Rx#:[id number] Oral 660 Other: Voiding Method Toilet Toilet Toilet # Voids 4 3 # Bowel Movements 1 1 - Exam - Constitutional General appearance: disheveled, morbidly obese - EENT Eyes: EOMI, PERRLA, poor dentition ENT: hard of hearing Ears: bilateral: normal - Neck Neck: normal ROM Carotids: bilateral: upstroke normal - Respiratory Respiratory: bilateral: CTA - Cardiovascular Rhythm: regular Heart sounds: normal: S1, S2 - Gastrointestinal General gastrointestinal: decreased bowel sounds, soft - Integumentary Integumentary: normal turgor - Neurologic Neurologic: CNII-XII intact - Musculoskeletal Musculoskeletal: gait normal, generalized weakness, strength equal bilaterally - Psychiatric Psychiatric: A&O x's 3, appropriate affect, intact judgment & insight - Labs CBC & Chem 7: 10/20/18 07:46 10/20/18 07:46 Labs: Abnormal Lab Results - Last 24 Hours (Table) 10/19/18 10/20/18 10/20/18 Range/Units 19:51 06:58 07:46 WBC 3.6 L (3.8-10.6) k/uL RBC 2.91 L (3.80-5.40) m/uL Hgb 9.1 L (11.4-16.0) gm/dL Hct 29.2 L (34.0-46.0) % MCV 100.2 H (80.0-100.0) fL RDW 17.3 H (11.5-15.5) % Lymphocytes # 0.3 L (1.0-4.8) k/uL Chloride (98-107) mmol/L BUN (7-17) mg/dL Glucose (74-99) mg/dL POC Glucose (mg/dL) 196 H 185 H (75-99) mg/dL AST (14-36) U/L Total Protein (6.3-8.2) g/dL Albumin (3.5-5.0) g/dL 10/20/18 10/20/18 10/20/18 Range/Units 07:46 12:09 16:42 WBC (3.8-10.6) k/uL RBC (3.80-5.40) m/uL Hgb (11.4-16.0) gm/dL Hct (34.0-46.0) % MCV (80.0-100.0) fL RDW (11.5-15.5) % Lymphocytes # (1.0-4.8) k/uL Chloride 110 H (98-107) mmol/L BUN 23 H (7-17) mg/dL Glucose 172 H (74-99) mg/dL POC Glucose (mg/dL) 156 H 203 H (75-99) mg/dL AST 13 L (14-36) U/L Total Protein 5.0 L (6.3-8.2) g/dL Albumin 3.0 L (3.5-5.0) g/dL Assessment and Plan Assessment: Moderate degree of sleep disorder breathing and sleep apnea Severe restless leg syndrome Chronic persistent asthma mild to moderate Diffuse large B-cell lymphoma with extranodal site Bradycardia Chronic pain syndrome Plan: We will initiate patient on the CPAP of 10 with 0.28 FiO2 oxygen each night and when necessary during the day Bronchodilators as needed Requip 1 mg at bedtime Further recommendations pending plan of care as per clinical response of the patient Time with Patient: Greater than 30
[2018-10-20] MEDS: ONDANSETRON 16 MG in SODIUM CHLORIDE 0.9% 50 ML IVPB SCH (19:33)
[2018-10-20] MEDS: FAMOTIDINE 20 MG/2 ML VIAL IV SCH (19:33)
[2018-10-20] MEDS: DOXORUBICIN HCL IV SCH (19:34)
[2018-10-20] MEDS: ETOPOSIDE IV SCH (19:34)
[2018-10-20] MEDS: VINCRISTINE SULFATE IV SCH (19:34)
[2018-10-20] MEDS: SODIUM CHLORIDE 0.9% IV SCH ×3 (19:34)
[2018-10-20 20:47] LABS: Glucose,Whole Blood 168 mg/dL (75-99)
[2018-10-20] MEDS: MONTELUKAST 10 MG TAB PO SCH (21:06)
[2018-10-20] MEDS: ATORVASTATIN 40 MG TAB PO SCH (21:06)
[2018-10-21] MEDS: HYDROcodone/APAP 10-325MG 1 EACH TAB PO PRN ×6 (01:32→23:25)
[2018-10-21] MEDS: SODIUM CHLORIDE 0.9% 1,000 ML IV SCH ×4 (03:46→22:22)
[2018-10-21] MEDS: LEVOTHYROXINE 75 MCG TAB PO SCH (05:21)
[2018-10-21 07:12] LABS: Glucose,Whole Blood 180 mg/dL (75-99)
[2018-10-21 07:42] LABS: Anisocytosis Slight; Basophils % (A) 0 %; Eosinophils % (A) 1 %; HCT 29.4 % (34.0-46.0); HGB 9.2 gm/dL (11.4-16.0); Hypochromasia Marked; Lymphocytes # (A) 0.3 k/uL (1.0-4.8); Lymphocytes % (A) 9 %; MCH 31.1 pg (25.0-35.0); MCHC 31.3 g/dL (31.0-37.0); MCV 99.3 fL (80.0-100.0); Macrocytosis Slight; Mean Platelet Volume 7.2; Monocytes # (A) 0.1 k/uL (0-1.0); Monocytes % (A) 4 %; Neutrophils # (A) 2.6 k/uL (1.3-7.7); Neutrophils % (A) 86 %; Platelet Count 255 k/uL (150-450); RBC 2.96 m/uL (3.80-5.40); RDW 16.9 % (11.5-15.5); WBC 3.1 k/uL (3.8-10.6)
[2018-10-21 07:54] LABS: ALT 28 U/L (9-52); AST 16 U/L (14-36); Albumin 3.1 g/dL (3.5-5.0); Alkaline Phosphatase 53 U/L (38-126); Anion Gap 4 mmol/L; Blood Urea Nitrogen 24 mg/dL (7-17); Calcium 9.6 mg/dL (8.4-10.2); Carbon Dioxide 26 mmol/L (22-30); Chloride 109 mmol/L (98-107); Glucose 149 mg/dL (74-99); Potassium 4.6 mmol/L (3.5-5.1); Sodium 139 mmol/L (137-145); Total Bilirubin 0.7 mg/dL (0.2-1.3); Total Protein 5.1 g/dL (6.3-8.2)
[2018-10-21] MEDS: predniSONE 50 MG TAB PO SCH ×2 (08:36→21:13)
[2018-10-21] MEDS: CYANOCOBALAMIN 500 MCG TAB PO SCH (08:36)
[2018-10-21] MEDS: ACYCLOVIR 200 MG CAP PO SCH ×2 (08:36→17:02)
[2018-10-21] MEDS: PANTOPRAZOLE 40 MG TABLET PO SCH ×2 (08:36→17:02)
[2018-10-21] MEDS: predniSONE 10 MG TAB PO SCH ×2 (08:37→21:13)
[2018-10-21] MEDS: LISINOPRIL 5 MG TAB PO SCH (08:37)
[2018-10-21] MEDS: INSULIN ASPART (NovoLOG) 100 UNIT/ML VIAL SQ SCH ×4 (08:37→21:14)
[2018-10-21] MEDS: GLIMEPIRIDE 1 MG TAB PO SCH (08:37)
[2018-10-21] MEDS: SALT AND SODA MOUTHWASH 1,000 ML PO SCH ×4 (08:39→21:14)
[2018-10-21] MEDS: OFLOXACIN 0.3% OPHTH DROPS 5 ML BOTTLE RIGHT EAR SCH ×2 (08:39→21:14)
[2018-10-21] MEDS: ENOXAPARIN 40 MG/0.4 ML SYRINGE SQ SCH (08:48)
[2018-10-21] MEDS: SYMBICORT 80-4.5 MCG INHALER INHALATION SCH ×2 (08:56→19:11)
--- NOTE | 2018-10-21 09:03 | P.PN ---
Subjective Progress Note Date: 10/21/18 Principal diagnosis: Sleep disorder breathing and sleep apnea, severe morbid obesity, restless leg syndrome, diffuse large B-cell lymphoma of extranodal site is status post chemotherapy, bradycardia, chronic pain syndrome, 10/21/2018, patient seen eval reexamined during the rounds she is awake and alert sitting upright on the bed breathing comfortably no obvious distress is present she has been doing better with the 1 mg of Requip, patient has tolerated CPAP of 10 overnight but does complaining of the Brooke less pressure and in adequacy along with the pressure changes on the face due to the mask, patient has received last dose of chemotherapy being monitored today likely will be discharged later on today 10/20/2018, , patient seen eval reexamined during the rounds clinically overall no significant change from baseline continued to have stable breathing Petrin, denies any chest pain, patient remains in room air 10/19/2018, patient seen eval reexamined during the rounds clinically has been doing well awake and alert breathing comfortably no obvious distress present patient has been getting more comfortable with his CPAP machine is still trying to use it at night nighttime, has been off of supplemental oxygen breathing comfortably no obvious distress present patient has been receiving 1 mg of the record was seems to be helping with her severe restless leg Mrs. solorzano is a 68-year-old female well-known to P for prior medical history of chronic persistent asthma has been admitted into the hospital for fourths and last cycle of the chemotherapy for diffuse large B-cell lymphoma, patient recently underwent a polysomnogram on outpatient setting still has mild-to- moderate degree of sleep apnea CPAP titration study however is pending, patient has a ongoing long-standing history of restless leg syndrome she has been on Requip dose has been escalated to 1 mg at bedtime which seems to be working, review of the data revealed that previously patient was on CPAP of 10 with 1028% oxygen was initiated for now Review of the data revealed that Patient is admitted for her 4thHer cycle of REPOCH treatment for diffuse large B-cell lymphoma of the gastrointestinal tract, recent PET showed no residual adenopathy and no PET avid areas. We did have Cardiology evaluation with clearance to continue chemotherapy. She did have a tube placed in her ear with resolution of impaired hearing.Pt admitted with no c/o on a 14 point ROS, appetite is fair to good, back pain managed, fully ambulatory. Patient was found to have RLQ abdominal pain associated with intermittent diarrhea. Colonoscopy in 03/02 was negative. Due to persistence of the symptoms pt had CT that showed inflammation of the right colon and cecum. She had 06/16/18, pathology positive for diffuse large B-cell lymphoma infiltrating the colonic and terminal ileum with involvement of at least one me socolic lymph node. Staging PET showed uptake only in the right lower quadrant of the abdomen. There was no evidence of double/triple hit mutations. Treatment recommendation was for 6 cycles of continuous IV infusion REPOCH. Patient started treatment 08/01/2018. She has required Cardiac work up due to bradycardia during treatment, she had good response on PET 10/04 Objective - Vital Signs Vital signs: Vital Signs Temp 98.2 F 10/21/18 07:50 Pulse 44 L 10/21/18 07:50 Resp 18 10/21/18 07:50 BP 170/74 10/21/18 07:50 Pulse Ox 97 10/21/18 07:50 Intake & Output 10/20/18 10/21/18 10/21/18 18:59 06:59 18:59 Intake Total 1474 2970 Balance 1474 2970 Weight 126.2 kg Intake: Intake, IV Titration 1474 1850 Amount DOXOrubicin HCL 22 mg In 80 Sodium Chloride 0.9% 250 ml @ 10.875 mls/hr IV Q24H [facility] Rx#:[id number] Etoposide 110 mg In 176 Sodium Chloride 0.9% 500 ml 500 ml @ 21.063 mls/hr IV Q24H [facility] Rx#: [id number] Ondansetron 16 mg In 50 Sodium Chloride 0.9% 50 ml @ 100 mls/hr IVPB Q24H [facility] Rx#:[id number] Sodium Chloride 0.9% 1, 1200 1800 000 ml @ 150 mls/hr IV . Q6H40M [facility] Rx#:[id number] vinCRIStine SULFATE 0.9 18 mg In Sodium Chloride 0.9 % 50 ml @ 2.121 mls/hr IV Q24H [facility] Rx#:[id number] Oral 1120 Other: Voiding Method Toilet Toilet # Voids 3 # Bowel Movements 1 - Exam - Constitutional General appearance: disheveled, morbidly obese - EENT Eyes: EOMI, PERRLA, poor dentition ENT: hard of hearing Ears: bilateral: normal - Neck Neck: normal ROM Carotids: bilateral: upstroke normal - Respiratory Respiratory: bilateral: CTA - Cardiovascular Rhythm: regular Heart sounds: normal: S1, S2 - Gastrointestinal General gastrointestinal: decreased bowel sounds, soft - Integumentary Integumentary: normal turgor - Neurologic Neurologic: CNII-XII intact - Musculoskeletal Musculoskeletal: gait normal, generalized weakness, strength equal bilaterally - Psychiatric Psychiatric: A&O x's 3, appropriate affect, intact judgment & insight - Labs CBC & Chem 7: 10/21/18 07:11 10/21/18 07:11 Labs: Abnormal Lab Results - Last 24 Hours (Table) 10/20/18 10/20/18 10/20/18 Range/Units 07:46 12:09 16:42 WBC (3.8-10.6) k/uL RBC (3.80-5.40) m/uL Hgb (11.4-16.0) gm/dL Hct (34.0-46.0) % RDW (11.5-15.5) % Lymphocytes # (1.0-4.8) k/uL Chloride 110 H (98-107) mmol/L BUN 23 H (7-17) mg/dL Glucose 172 H (74-99) mg/dL POC Glucose (mg/dL) 156 H 203 H (75-99) mg/dL AST 13 L (14-36) U/L Total Protein 5.0 L (6.3-8.2) g/dL Albumin 3.0 L (3.5-5.0) g/dL 10/20/18 10/21/18 10/21/18 Range/Units 20:16 07:11 07:11 WBC 3.1 L (3.8-10.6) k/uL RBC 2.96 L (3.80-5.40) m/uL Hgb 9.2 L (11.4-16.0) gm/dL Hct 29.4 L (34.0-46.0) % RDW 16.9 H (11.5-15.5) % Lymphocytes # 0.3 L (1.0-4.8) k/uL Chloride 109 H (98-107) mmol/L BUN 24 H (7-17) mg/dL Glucose 149 H (74-99) mg/dL POC Glucose (mg/dL) 168 H (75-99) mg/dL AST (14-36) U/L Total Protein 5.1 L (6.3-8.2) g/dL Albumin 3.1 L (3.5-5.0) g/dL 10/21/18 Range/Units 07:11 WBC (3.8-10.6) k/uL RBC (3.80-5.40) m/uL Hgb (11.4-16.0) gm/dL Hct (34.0-46.0) % RDW (11.5-15.5) % Lymphocytes # (1.0-4.8) k/uL Chloride (98-107) mmol/L BUN (7-17) mg/dL Glucose (74-99) mg/dL POC Glucose (mg/dL) 180 H (75-99) mg/dL AST (14-36) U/L Total Protein (6.3-8.2) g/dL Albumin (3.5-5.0) g/dL Assessment and Plan Assessment: Moderate degree of sleep disorder breathing and sleep apnea Severe restless leg syndrome Chronic persistent asthma mild to moderate Diffuse large B-cell lymphoma with extranodal site Bradycardia Chronic pain syndrome Plan: We will initiate patient on the CPAP of 10 with 0.28 FiO2 oxygen each night and when necessary during the day while in the hospital Arrange CPAP re-titration study on outpatient basis Bronchodilators as needed Requip 1 mg at bedtime to be continued at home as well Further recommendations pending plan of care as per clinical response of the patient Agree with discharge planning Time with Patient: Greater than 30
[2018-10-21] MEDS: MECLIZINE 25 MG TAB PO PRN (09:17)
[2018-10-21 11:42] LABS: Glucose,Whole Blood 120 mg/dL (75-99)
[2018-10-21 17:35] LABS: Glucose,Whole Blood 160 mg/dL (75-99)
--- NOTE | 2018-10-21 19:03 | P.PN ---
Subjective Progress Note Date: 10/21/18 Principal diagnosis: Timed Chemotherapy Tolerating last treatment and last day well. Hemoglobin and rest of her CBC in safe range. Plan for discharge in am. Objective - Vital Signs Vital signs: Vital Signs Temp 97.4 F L 10/21/18 16:00 Pulse 44 L 10/21/18 16:00 Resp 20 10/21/18 16:00 BP 160/65 10/21/18 16:00 Pulse Ox 97 10/21/18 16:00 Intake & Output 10/20/18 10/21/18 10/21/18 18:59 06:59 18:59 Intake Total 1474 2970 240 Balance 1474 2970 240 Weight 126.2 kg Intake: Intake, IV Titration 1474 1850 Amount DOXOrubicin HCL 22 mg In 80 Sodium Chloride 0.9% 250 ml @ 10.875 mls/hr IV Q24H [facility] Rx#:[id number] Etoposide 110 mg In 176 Sodium Chloride 0.9% 500 ml 500 ml @ 21.063 mls/hr IV Q24H [facility] Rx#: [id number] Ondansetron 16 mg In 50 Sodium Chloride 0.9% 50 ml @ 100 mls/hr IVPB Q24H [facility] Rx#:[id number] Sodium Chloride 0.9% 1, 1200 1800 000 ml @ 150 mls/hr IV . Q6H40M [facility] Rx#:[id number] vinCRIStine SULFATE 0.9 18 mg In Sodium Chloride 0.9 % 50 ml @ 2.121 mls/hr IV Q24H [facility] Rx#:[id number] Oral 1120 240 Other: Voiding Method Toilet Toilet Toilet # Voids 3 4 # Bowel Movements 1 1 - Exam Constitutional General appearance: Present: morbidly obese, no acute distress - EENT Eyes: Present: anicteric sclerae, EOMI ENT: Present: hearing grossly normal, normal oropharynx - Respiratory Respiratory: - Cardiovascular Details: S1S2, bradycardia Heart sounds: - Gastrointestinal Gastrointestinal Comment(s): soft, BS + - Integumentary Integumentary: Present: normal turgor, pale - Neurologic Neurologic: Present: CNII-XII intact - Musculoskeletal Musculoskeletal: Present: strength equal bilaterally - Psychiatric Psychiatric: Present: A&O x's 3, appropriate affect, intact judgment & insight - Labs CBC & Chem 7: 10/21/18 07:11 10/21/18 07:11 Labs: Abnormal Lab Results - Last 24 Hours (Table) 10/20/18 10/21/18 10/21/18 Range/Units 20:16 07:11 07:11 WBC 3.1 L (3.8-10.6) k/uL RBC 2.96 L (3.80-5.40) m/uL Hgb 9.2 L (11.4-16.0) gm/dL Hct 29.4 L (34.0-46.0) % RDW 16.9 H (11.5-15.5) % Lymphocytes # 0.3 L (1.0-4.8) k/uL Chloride 109 H (98-107) mmol/L BUN 24 H (7-17) mg/dL Glucose 149 H (74-99) mg/dL POC Glucose (mg/dL) 168 H (75-99) mg/dL Total Protein 5.1 L (6.3-8.2) g/dL Albumin 3.1 L (3.5-5.0) g/dL 10/21/18 10/21/18 Range/Units 07:11 11:41 WBC (3.8-10.6) k/uL RBC (3.80-5.40) m/uL Hgb (11.4-16.0) gm/dL Hct (34.0-46.0) % RDW (11.5-15.5) % Lymphocytes # (1.0-4.8) k/uL Chloride (98-107) mmol/L BUN (7-17) mg/dL Glucose (74-99) mg/dL POC Glucose (mg/dL) 180 H 120 H (75-99) mg/dL Total Protein (6.3-8.2) g/dL Albumin (3.5-5.0) g/dL Assessment and Plan Plan: Assessment and Plan (1) Diffuse large B-cell lymphoma of extranodal site Narrative/Plan: - CIVI R-EPOCH regimen, cycle 4. Final treatment. - Imaging and f/u in about 1 month Home meds Supportive meds ordered Labs daily DC tomorrow am after completion of treatment Appt for GCSF and CBC in DC summary Current Visit: Yes Status: Acute Priority: High Code(s): C83.39 - DIFFUSE LARGE B-CELL LYMPHOMA, EXTRNOD AND SOLID ORGAN SITES SNOMED Code(s): 043325780 (2) Bradyarrhythmia Narrative/Plan: Cardiology following, pt on telemetry Current Visit: Yes Status: Acute Priority: High Code(s): I49.8 - OTHER SPECIFIED CARDIAC ARRHYTHMIAS SNOMED Code(s): 575276640 (3) Chronic pain syndrome Narrative/Plan: Cont home pain meds Current Visit: No Status: Chronic Priority: Low Code(s): G89.4 - CHRONIC PAIN SYNDROME SNOMED Code(s): 842422795 Plan: GI and DVT prophylaxis Medications sent to her pharmacy on 10th DC tomorrow am as treatment will complete late tonight and will allow one more blood check and hydration overnight to assist in flushing extra toxins. Physician Attestation: I have completed the complete history and physical and developed the complete impression and plan. Agree with above dictation, dictated as a scribe.
[2018-10-21] MEDS: FAMOTIDINE 20 MG/2 ML VIAL IV SCH (19:48)
[2018-10-21] MEDS: ONDANSETRON 16 MG in SODIUM CHLORIDE 0.9% 50 ML IVPB SCH (19:48)
[2018-10-21 19:53] LABS: Glucose,Whole Blood 153 mg/dL (75-99)
[2018-10-21] MEDS ORDERED: CYCLOPHOSPHAMIDE IV ONE (21:00)
[2018-10-21] MEDS ORDERED: SODIUM CHLORIDE 0.9% IV ONE (21:00)
[2018-10-21] MEDS: ATORVASTATIN 40 MG TAB PO SCH (21:13)
[2018-10-21] MEDS: MONTELUKAST 10 MG TAB PO SCH (21:13)
[2018-10-22 00:06] VITALS: RESP 16
[2018-10-22] MEDS: HYDROcodone/APAP 10-325MG 1 EACH TAB PO PRN ×2 (04:26→09:27)
[2018-10-22 04:46] VITALS: BP 156/77; TEMP 97.3
[2018-10-22] MEDS: LEVOTHYROXINE 75 MCG TAB PO SCH (05:14)
[2018-10-22] MEDS: IPRATROPIUM-ALBUTEROL 3 ML NEB INHALATION PRN (05:24)
[2018-10-22 06:58] LABS: Glucose,Whole Blood 194 mg/dL (75-99)
[2018-10-22 07:42] LABS: Anisocytosis Slight; Basophils % (A) 0 %; Eosinophils % (A) 1 %; HCT 30.4 % (34.0-46.0); HGB 9.4 gm/dL (11.4-16.0); Hypochromasia Moderate; Lymphocytes # (A) 0.3 k/uL (1.0-4.8); Lymphocytes % (A) 15 %; MCH 30.3 pg (25.0-35.0); MCHC 30.7 g/dL (31.0-37.0); MCV 98.8 fL (80.0-100.0); Macrocytosis Slight; Mean Platelet Volume 6.8; Monocytes # (A) 0.1 k/uL (0-1.0); Monocytes % (A) 3 %; Neutrophils # (A) 1.7 k/uL (1.3-7.7); Neutrophils % (A) 82 %; Platelet Count 251 k/uL (150-450); RBC 3.08 m/uL (3.80-5.40); RDW 16.5 % (11.5-15.5); WBC 2.1 k/uL (3.8-10.6)
[2018-10-22] MEDS: PANTOPRAZOLE 40 MG TABLET PO SCH (08:01)
[2018-10-22] MEDS: ACYCLOVIR 200 MG CAP PO SCH (08:01)
[2018-10-22] MEDS: CYANOCOBALAMIN 500 MCG TAB PO SCH (08:01)
[2018-10-22] MEDS: LISINOPRIL 5 MG TAB PO SCH (08:01)
[2018-10-22] MEDS: OFLOXACIN 0.3% OPHTH DROPS 5 ML BOTTLE RIGHT EAR SCH (08:02)
[2018-10-22] MEDS: GLIMEPIRIDE 1 MG TAB PO SCH (08:02)
[2018-10-22] MEDS: ENOXAPARIN 40 MG/0.4 ML SYRINGE SQ SCH (08:02)
[2018-10-22] MEDS: SALT AND SODA MOUTHWASH 1,000 ML PO SCH (08:02)
[2018-10-22 08:03] LABS: ALT 28 U/L (9-52); AST 17 U/L (14-36); Albumin 3.1 g/dL (3.5-5.0); Alkaline Phosphatase 61 U/L (38-126); Anion Gap 5 mmol/L; Blood Urea Nitrogen 22 mg/dL (7-17); Calcium 9.8 mg/dL (8.4-10.2); Carbon Dioxide 26 mmol/L (22-30); Chloride 106 mmol/L (98-107); Glucose 171 mg/dL (74-99); Magnesium 1.9 mg/dL (1.6-2.3); Potassium 3.7 mmol/L (3.5-5.1); Sodium 137 mmol/L (137-145); Total Bilirubin 0.9 mg/dL (0.2-1.3); Total Protein 5.1 g/dL (6.3-8.2)
[2018-10-22] MEDS: INSULIN ASPART (NovoLOG) 100 UNIT/ML VIAL SQ SCH (08:03)
[2018-10-22] MEDS: SYMBICORT 80-4.5 MCG INHALER INHALATION SCH (08:47)
[2018-10-22 09:24] VITALS: PULSE 44
--- NOTE | 2018-10-22 22:08 | P.DS ---
Providers Date of admission: 10/17/18 07:41 Expected date of discharge: 10/22/18 Attending physician: Raheel Peralta Consults: 10/17/18 10:32 Consult Physician Routine Consulting Provider: Mauricio Thomas Consult Reason/Comments: cardiac management Do you want consulting provider notified?: Yes 10/17/18 11:00 Consult Physician Routine Consulting Provider: Padilla Santiago Consult Reason/Comments: Medical management Do you want consulting provider notified?: Yes 10/18/18 16:39 Consult Physician Routine Consulting Provider: Josiah Solorio Consult Reason/Comments: jett Do you want consulting provider notified?: Yes Primary care physician: Raheel Peralta - Discharge Diagnosis(es) (1) Diffuse large B-cell lymphoma of extranodal site Status: Acute Priority: High (2) Bradyarrhythmia Status: Acute Priority: High (3) Antineoplastic chemotherapy induced anemia Status: Acute Priority: Medium Hospital Course: The patient was admitted for her final planned course of R- EPO CH regimen. She tolerated treatment well subjectively. Counts and chemistries were monitored, with no major untoward abnormalities noted. The patient again experienced episodes of bradycardia arrhythmia, that for asymptomatic. She was followed by cardiology and pulmonary medicine. This is felt to be related to sleep apnea, and the patient was started on CPAP this admission, to be continued on discharge. After completion of her treatment, she was clinically stable, she was felt to be appropriate for discharge Procedures: high-dose infusional chemotherapy Patient Condition at Discharge: Fair Plan - Discharge Summary Discharge Rx Participant: No New Discharge Prescriptions: Continue Simvastatin [Zocor] 80 mg PO HS Zafirlukast [Accolate] 20 mg PO BID Ergocalciferol [Vitamin D2 (DRISDOL)] 50,000 unit PO MO Levothyroxine Sodium [Synthroid] 150 mcg PO QAM Glimepiride [Amaryl] 1 mg PO AC-BRKFST rOPINIRole HCL [Requip] 0.5 mg PO HS Acyclovir 400 mg PO AC-BID #60 tablet Meclizine [Antivert] 25 mg PO TID PRN #14 tab PRN Reason: Vertigo Pantoprazole [Protonix] 40 mg PO AC-BID #60 tablet. Cyanocobalamin (Vitamin B-12) [Vitamin B-12] 1,000 mcg PO DAILY HYDROcodone/APAP 10-325MG [[place] 10-325] 1 tab PO Q4H PRN PRN Reason: Pain Lisinopril [Zestril] 5 mg PO DAILY Artificial Tears-Hypromellose [Artificial Tear Drops] 1 drops BOTH EYES QID PRN bottle PRN Reason: Dry Eye(S) Fluticasone/Salmeterol [Advair 250-50 Diskus] 2 puff INHALATION RT-BID Acetaminophen Tab [Tylenol] 325 mg PO HS PRN tab PRN Reason: Mild Pain Benzocaine/Menthol Lozeng [Cepacol lozenge] 1 each MUCOUS MEM Q4HR PRN lozenge PRN Reason: Sore Throat Ipratropium-Albuterol Nebulize [Duoneb 0.5 mg-3 mg/3 ml Soln] 3 ml INHALATION RT-Q2H PRN ampul.neb PRN Reason: Shortness Of Breath Or Wheezing Ofloxacin 0.3% Ophth Soln [Ocuflox Ophth Soln] 5 drops RIGHT EAR BID 5 Days #10 bottle Discontinued predniSONE 20 mg PO DAILY Discharge Medication List Simvastatin [Zocor] 80 mg PO HS 03/21/14 [History] Zafirlukast [Accolate] 20 mg PO BID 03/21/14 [History] Ergocalciferol [Vitamin D2 (DRISDOL)] 50,000 unit PO MO 10/09/14 [History] Levothyroxine Sodium [Synthroid] 150 mcg PO QAM 10/09/14 [History] Glimepiride [Amaryl] 1 mg PO AC-BRKFST 10/08/15 [History] rOPINIRole HCL [Requip] 0.5 mg PO HS 08/04/17 [History] Acyclovir 400 mg PO AC-BID #60 tablet 08/07/18 [Rx] Meclizine [Antivert] 25 mg PO TID PRN #14 tab 08/07/18 [Rx] Pantoprazole [Protonix] 40 mg PO AC-BID #60 tablet.dr 08/07/18 [Rx] Cyanocobalamin (Vitamin B-12) [Vitamin B-12] 1,000 mcg PO DAILY 08/22/18 [History] HYDROcodone/APAP 10-325MG [[place] 10-325] 1 tab PO Q4H PRN 08/22/18 [History] Lisinopril [Zestril] 5 mg PO DAILY 08/22/18 [History] Artificial Tears-Hypromellose [Artificial Tear Drops] 1 drops BOTH EYES QID PRN bottle 08/26/18 [Rx] Fluticasone/Salmeterol [Advair 250-50 Diskus] 2 puff INHALATION RT-BID 09/12/18 [History] Acetaminophen Tab [Tylenol] 325 mg PO HS PRN tab 09/16/18 [Rx] Benzocaine/Menthol Lozeng [Cepacol lozenge] 1 each MUCOUS MEM Q4HR PRN lozenge 09/16/18 [Rx] Ipratropium-Albuterol Nebulize [Duoneb 0.5 mg-3 mg/3 ml Soln] 3 ml INHALATION RT-Q2H PRN ampul.neb 09/16/18 [Rx] Ofloxacin 0.3% Ophth Soln [Ocuflox Ophth Soln] 5 drops RIGHT EAR BID 5 Days #10 bottle 09/29/18 [Rx] Follow up Appointment(s)/Referral(s): Travis Caro MD [STAFF PHYSICIAN] - 2 Weeks [facility] [NON-STAFF] - 1 Week Raheel Peralta MD [Primary Care Provider] - 10/24/18 9:15 am Patient Instructions/Handouts: Bradycardia (DC) Activity/Diet/Wound Care/Special Instructions: Bedside Commode - call [facility] to notify when patient is discharged to arrange delivery- [phone] Discharge Disposition: HOME SELF-CARE
[2018-10-24] MEDS ORDERED: ERGOCALCIFEROL 50,000 UNIT CAP PO SCH (12:00)
== END 2018-10-22 11:11 | disposition home or self-care (01) | DRG 847 ==
LOC: 3NMEDONC 07:41
PROVIDERS: ADMIT Internal Medicine Hematology & Oncology; ATTEND Internal Medicine Hematology & Oncology
DX: Z51.11 Encounter for antineoplastic chemotherapy (principal); C83.39 Diffuse large B-cell lymphoma, extranodal and solid organ sites; Z68.42 Body mass index [BMI] 45.0-49.9, adult; G89.4 Chronic pain syndrome; I49.8 Other specified cardiac arrhythmias; I25.10 Atherosclerotic heart disease of native coronary artery without angina pectoris; I25.5 Ischemic cardiomyopathy; G47.33 Obstructive sleep apnea (adult) (pediatric); E11.9 Type 2 diabetes mellitus without complications; I10 Essential (primary) hypertension; E78.5 Hyperlipidemia, unspecified; I08.1 Rheumatic disorders of both mitral and tricuspid valves; I27.20 Pulmonary hypertension, unspecified; R19.7 Diarrhea, unspecified; E66.01 Morbid (severe) obesity due to excess calories; E03.9 Hypothyroidism, unspecified; J45.909 Unspecified asthma, uncomplicated; D64.81 Anemia due to antineoplastic chemotherapy; T45.1X5A Adverse effect of antineoplastic and immunosuppressive drugs, initial encounter; G25.81 Restless legs syndrome; N28.9 Disorder of kidney and ureter, unspecified; Z96.652 Presence of left artificial knee joint; Z79.84 Long term (current) use of oral hypoglycemic drugs; Z79.890 Hormone replacement therapy; Z87.891 Personal history of nicotine dependence; Z98.84 Bariatric surgery status; Z95.1 Presence of aortocoronary bypass graft; Z91.19 Patient's noncompliance with other medical treatment and regimen; Z79.899 Other long term (current) drug therapy; Z80.1 Family history of malignant neoplasm of trachea, bronchus and lung; Z81.1 Family history of alcohol abuse and dependence; Z98.51 Tubal ligation status; Z90.49 Acquired absence of other specified parts of digestive tract
CPT/HCPCS: 80053; 83036; 83735; 85025; 93005; 94640; 94660

== ENCOUNTER → 2018-12-09 | Outpatient (CLI) | payer MEDICARE, OTHER ==
--- NOTE | 2018-12-09 12:09 | CT ---
EXAMINATION TYPE: CT iac wo con DATE OF EXAM: 12/09/2018 COMPARISON: 05/22/2016 HISTORY: Cholesteatoma, mastoiditis CT DLP: 142.70mGycm Automated exposure control for dose reduction was used. FINDINGS: There is fluid within the right-sided mastoid air cells with air-fluid level seen at the lo ss of lateral osseous margin. This appears to be related to change of prior mastoidectomy. Strict cli nical correlation is recommended. Superimposed mastoiditis is certainly not excluded. There is fluid and soft tissue surrounding the ossicular chain and extending into the attic felt to reflect choleste rol granuloma or infectious process. Ossicular chain fails demonstrate evidence for destructive mattson e. There is thickening of the right-sided tympanic membrane. The external auditory canals are patent bilaterally. Mastoid air cells show no evidence of abnormal opacification on the left. The left-sided middle ear ossicles are unremarkable. There is no evidence of suspicious surrounding soft tissue density to sug gest cholesteatoma on the left. The cochlea and the semicircular canals are symmetric and unremark able. Vestibular aqueduct and internal carotid canal appear unremarkable. Temporomandibular joints are maintained bilaterally. IMPRESSION: 1. Findings felt to reflect the changes of prior right-sided mastoidectomy. There is fluid within the mastoidectomy cavity which may reflect underlying infection. Correlate with surgical history. 2. Fluid and soft tissue surrounding the right-sided ossicular chain without bone destruction at this time. Correlate for associated infectious process &/or cholesterol granuloma.
== END ==
LOC: RADCTMAIN 11:14
PROVIDERS: ATTEND Otolaryngology
DX: H71.90 Unspecified cholesteatoma, unspecified ear (principal); H70.90 Unspecified mastoiditis, unspecified ear
CPT/HCPCS: 70480

== ENCOUNTER → 2018-12-24 | Outpatient (CLI) | payer MEDICARE, OTHER ==
--- NOTE | 2018-12-27 08:23 | PE ---
Nuclear medicine PET/CT HISTORY: Lymphoma, subsequent Patient received 11.8 mCi F-18 FDG intravenously in delayed scanning was performed from the skull bas e to the mid thighs. An attenuation correction and localization CT was also performed. Correlation to prior nuclear medicine PET/CT 10/01/2018 Neck and chest: There is no evident cervical, mediastinal, supraclavicular, axillary, hilar adenopath y. Patient is post median sternotomy. Coronary artery calcifications are present. Possible mitral kaley ular calcification. No evident lung mass or suspicious hypermetabolic uptake in the neck or chest. Po rt is in the right pectoral region via right subclavian approach into the superior vena cava. Abdomen pelvis: No suspicious hypermetabolic uptake. Postop changes are noted to the colon. Uptake ne ar the hepatic flexure thought likely to be physiologic. No retroperitoneal or pelvic adenopathy. Osseous structures are essentially stable. Hypermetabolic uptake in the marrow has diminished. There is uptake in the right shoulder likely related to patient's shoulder arthroplasty change. IMPRESSION: No recurrent hypermetabolic activity is evident, no evident adenopathy.
== END | disposition home or self-care (01) ==
LOC: RADPETMAIN 10:09
PROVIDERS: ATTEND Internal Medicine Hematology & Oncology
DX: C83.39 Diffuse large B-cell lymphoma, extranodal and solid organ sites (principal)
CPT/HCPCS: 78815; A9552

== ENCOUNTER 2019-01-06 06:54 | Day surgery (SDC) | payer MEDICARE, OTHER ==
[2019-01-03 13:51] VITALS: BMI 45.5
[~2019-01-06 06:54] MED LIST changes: -FAMOTIDINE 20 MG/2 ML VIAL IV ONE; +HEPARIN SODIUM,PORCINE 5,000 UNIT/ML 1 ML VIAL SQ ONE; -LIDOCAINE 1% 20 ML VIAL (10MG/ML) FOR IV START INTRADERMA PRN; -MIDAZOLAM (PF) 2 MG/2 ML VIAL IV PRN; +MIDAZOLAM 2 MG/2 ML VIAL IV PRN; +ceFAZolin IN SWFI 2 GM/20 ML SYRINGE IVP ONE; -fentaNYL (PF) 50 MCG/ML 2 ML AMP IV PRN
[2019-01-06 07:17] VITALS: TEMP 97.9
[2019-01-06 07:32] LABS: Glucose,Whole Blood 120 mg/dL (75-99)
[2019-01-06] MEDS ORDERED: fentaNYL (PF) 50 MCG/ML 2 ML AMP ONE (07:47)
[2019-01-06] MEDS ORDERED: PROPOFOL 10 MG/ML 20 ML VIAL IV ONE (07:47)
[2019-01-06] MEDS ORDERED: MIDAZOLAM 2 MG/2 ML VIAL ONE (07:47)
--- NOTE | 2019-01-06 07:54 | P.GSHP ---
History of Present Illness H&P Date: 01/06/19 Chief Complaint: History of lymphoma This 68-year-old female with history of lymphoma. Patient presents today for Port-A-Cath removal. Past Medical History Past Medical History: Asthma, Coronary Artery Disease (CAD), Cancer, Diabetes Mellitus, Hearing Disorder / Deafness, Hyperlipidemia, Hypertension, Musculoskeletal Disorder, Osteoarthritis (OA), Skin Disorder, Sleep Apnea/CPAP/BIPAP, Thyroid Disorder Additional Past Medical History / Comment(s): Non-Hodgins Lymphoma-Just finished chemo.Had episodes of bradycardia during chemo.Hx.of abd.mass, ischemic heart disease, NIDDM, deaf/chronic otitis media L ear, chronic otitis media/[place] R ear, chronic low back/neck pain, new R outer knee pain, vertigo, L hand numbness tingling which she attributes to L sided carpal tunnel syndrome, varicosities, possible IBS/colitis and chron's per pt in the past, benign colon polyps, uses C-PAP, eczema. History of Any Multi-Drug Resistant Organisms: None Reported Past Surgical History: Bariatric Surgery, Bowel Resection, Cholecystectomy, Coronary Bypass/CABG, Heart Catheterization, Hernia Repair, Joint Replacement, Orthopedic Surgery, Tubal Ligation Additional Past Surgical History / Comment(s): 09/29/18 removal R ear ventilation tube, L tympanomastiodectomy, CABG x1 vessel (1992), bilateral shoulder surgery/ rt shoulder rotator cuff, bilateral carpal tunnel releases, L wrist surgery d/t injury, total L knee, gastric bypass and then lap band removal. colonoscopy/benign polypectomy, R colectomy d/t mass, umbilical hernia repair Past Anesthesia/Blood Transfusion Reactions: Motion Sickness Additional Past Anesthesia/Blood Transfusion Reaction / Comment(s): VERTIGO Smoking Status: Former smoker - Past Family History Mother Additional Family Medical History / Comment(s): Pt states her mother never went to the doctor so she does not know of any medical problems. Mother lived to be 87yrs old. Father Additional Family Medical History / Comment(s): Father at the age of 67yrs, pt does not know cause of . He had alcohol abuse Sister(s) Family Medical History: Cancer Additional Family Medical History / Comment(s): LUNG CA Medications and Allergies Home Medications Medication Instructions Recorded Confirmed Type Simvastatin [Zocor] 80 mg PO HS 03/21/14 01/03/19 History Zafirlukast [Accolate] 20 mg PO BID 03/21/14 01/03/19 History Ergocalciferol [Vitamin D2 50,000 unit PO MO 10/09/14 01/03/19 History (DRISDOL)] Levothyroxine Sodium [Synthroid] 150 mcg PO QAM 10/09/14 01/03/19 History Glimepiride [Amaryl] 1 mg PO AC-BRKFST 10/08/15 01/03/19 History rOPINIRole HCL [Requip] 1 mg PO HS 08/04/17 01/03/19 History Meclizine [Antivert] 25 mg PO TID PRN #14 tab 08/07/18 01/03/19 Rx Pantoprazole [Protonix] 40 mg PO AC-BID #60 tablet.dr 08/07/18 01/03/19 Rx Cyanocobalamin (Vitamin B-12) 1,000 mcg PO DAILY 08/22/18 01/03/19 History [Vitamin B-12] HYDROcodone/APAP 10-325MG [[place] 1 tab PO Q4H PRN 08/22/18 01/03/19 History 10-325] Lisinopril [Zestril] 5 mg PO DAILY 08/22/18 01/03/19 History Fluticasone/Salmeterol [Advair 2 puff INHALATION RT-BID 09/12/18 01/03/19 History 250-50 Diskus] Acetaminophen Tab [Tylenol] 325 mg PO HS PRN tab 09/16/18 01/03/19 Rx Ipratropium-Albuterol Nebulize 3 ml INHALATION RT-Q2H PRN 09/16/18 01/03/19 Rx [Duoneb 0.5 mg-3 mg/3 ml Soln] ampul.neb Ofloxacin 0.3% Ophth Soln [Ocuflox 5 drops RIGHT EAR BID 5 Days #10 09/29/18 01/03/19 Rx Ophth Soln] bottle Acetaminophen [Tylenol Extra 500 mg PO Q4-6H PRN 01/06/19 01/06/19 History Strength] Allergies Allergy/AdvReac Type Severity Reaction Status Date / Time allopurinol Allergy Itching Verified 01/06/19 07:04 cephalexin monohydrate Allergy Itching Verified 01/06/19 07:04 [From Keflex] clindamycin Allergy Itching Verified 01/06/19 07:04 NSAIDS (Non-Steroidal AdvReac Unknown STATES NO Verified 01/06/19 07:04 Anti-Inflamma NSAIDS DUE TO GASTRIC BYPASS ciprofloxacin [From Cipro] AdvReac severe Verified 01/06/19 07:04 heartburn doxycycline AdvReac severe Verified 01/06/19 07:04 heartburn Surgical - Exam Vital Signs Temp Pulse Resp BP Pulse Ox 97.9 F 76 18 134/65 96 01/06/19 07:16 01/06/19 07:16 01/06/19 07:16 01/06/19 07:16 01/06/19 07:16 - General well developed, well nourished, no distress - Eyes PERRL - ENT normal pinna - Neck no masses - Respiratory normal expansion - Cardiovascular Rhythm: regular - Abdomen Abdomen: soft, non tender Results - Labs Abnormal Lab Results - Last 24 Hours (Table) 01/06/19 Range/Units 07:26 POC Glucose (mg/dL) 120 H (75-99) mg/dL Assessment and Plan Assessment: History of lymphoma. We'll perform Port-A-Cath removal.
[2019-01-06] MEDS ORDERED: LIDOCAINE 1%-EPI 1:100,000 20 ML VIAL SQ ONE (08:22)
--- NOTE | 2019-01-06 08:41 | P.OP ---
Date of Procedure: 01/06/19 Preoperative Diagnosis: 's lymphoma Postoperative Diagnosis: Lymphoma Procedure(s) Performed: Removal of Port-A-Cath Anesthesia: MAC Surgeon: Mannie Tanner Estimated Blood Loss (ml): 5 Pathology: none sent Condition: stable Disposition: PACU Description of Procedure: Patient's placed on the operative table in supine position. She received IV sedation. Her chest was prepped and draped usual fashion. A skin incision was made over the Port-A-Cath. Using left cautery the Port-A-Cath was dissected free. Port-A-Cath removed. The skin was closed interrupted 3-0 Monocryl suture. Dermabond was applied. Patient top procedure well. Procedure well.
[2019-01-06 08:42] VITALS: RESP 16
[2019-01-06 09:05] VITALS: BP 100/55; PULSE 61
[2019-01-06 09:20] LABS: Glucose,Whole Blood 127 mg/dL (75-99)
== END 2019-01-06 09:21 | disposition home or self-care (01) ==
LOC: OR 06:54
PROVIDERS: ATTEND Surgery
DX: Z45.2 Encounter for adjustment and management of vascular access device (principal); Z85.72 Personal history of non-Hodgkin lymphomas; J45.909 Unspecified asthma, uncomplicated; I25.10 Atherosclerotic heart disease of native coronary artery without angina pectoris; E11.9 Type 2 diabetes mellitus without complications; H91.90 Unspecified hearing loss, unspecified ear; E78.5 Hyperlipidemia, unspecified; I10 Essential (primary) hypertension; M19.90 Unspecified osteoarthritis, unspecified site; G47.33 Obstructive sleep apnea (adult) (pediatric); G89.29 Other chronic pain; E03.9 Hypothyroidism, unspecified; D64.81 Anemia due to antineoplastic chemotherapy; G25.81 Restless legs syndrome; E66.01 Morbid (severe) obesity due to excess calories; Z99.89 Dependence on other enabling machines and devices; Z92.21 Personal history of antineoplastic chemotherapy; Z79.84 Long term (current) use of oral hypoglycemic drugs; Z87.891 Personal history of nicotine dependence; Z88.1 Allergy status to other antibiotic agents; Z88.6 Allergy status to analgesic agent; Z95.1 Presence of aortocoronary bypass graft; Z98.84 Bariatric surgery status; Z79.890 Hormone replacement therapy; Z79.891 Long term (current) use of opiate analgesic; Z79.899 Other long term (current) drug therapy; Z79.51 Long term (current) use of inhaled steroids; Z88.8 Allergy status to other drugs, medicaments and biological substances; Z96.652 Presence of left artificial knee joint; Z77.22 Contact with and (suspected) exposure to environmental tobacco smoke (acute) (chronic); Z68.41 Body mass index [BMI] 40.0-44.9, adult; Z79.82 Long term (current) use of aspirin; Z71.3 Dietary counseling and surveillance
CPT/HCPCS: 36590; J2250; J1644; J1100; J2405; J3010; J2704

== ENCOUNTER 2019-04-08 20:53 | Emergency (ER) | payer MEDICARE, OTHER ==
[2019-04-08 20:58] VITALS: BP 134/80; PULSE 70; RESP 18; TEMP 97.9
--- NOTE | 2019-04-08 21:39 | ED ---
Skin/Abscess/FB HPI - General Chief complaint: Skin/Abscess/Foreign Body Stated complaint: Arm injury Time Seen by Provider: 04/08/19 21:29 Source: patient, RN notes reviewed Mode of arrival: ambulatory Limitations: no limitations - History of Present Illness Initial comments: 68-year-old female presents emergency Department chief complaint of right and left arm wound. Patient states that she hit by a fall door. Patient states that she notes some bruising and slight bleeding. Patient is this worried about this her tetanus is up-to-date. Patient has no other complaints. - Related Data Home Medications Medication Instructions Recorded Confirmed Simvastatin [Zocor] 80 mg PO HS 03/21/14 01/03/19 Zafirlukast [Accolate] 20 mg PO BID 03/21/14 01/03/19 Ergocalciferol [Vitamin D2 50,000 unit PO MO 10/09/14 01/03/19 (DRISDOL)] Levothyroxine Sodium [Synthroid] 150 mcg PO QAM 10/09/14 01/03/19 Glimepiride [Amaryl] 1 mg PO AC-BRKFST 10/08/15 01/03/19 rOPINIRole HCL [Requip] 1 mg PO HS 08/04/17 01/03/19 Cyanocobalamin (Vitamin B-12) 1,000 mcg PO DAILY 08/22/18 01/03/19 [Vitamin B-12] HYDROcodone/APAP 10-325MG [[place] 1 tab PO Q4H PRN 08/22/18 01/03/19 10-325] Lisinopril [Zestril] 5 mg PO DAILY 08/22/18 01/03/19 Fluticasone/Salmeterol [Advair 2 puff INHALATION RT-BID 09/12/18 01/03/19 250-50 Diskus] Acetaminophen [Tylenol Extra 500 mg PO Q4-6H PRN 01/06/19 01/06/19 Strength] Previous Rx's Medication Instructions Recorded Meclizine [Antivert] 25 mg PO TID PRN #14 tab 08/07/18 Pantoprazole [Protonix] 40 mg PO AC-BID #60 tablet.dr 08/07/18 Acetaminophen Tab [Tylenol] 325 mg PO HS PRN tab 09/16/18 Ipratropium-Albuterol Nebulize 3 ml INHALATION RT-Q2H PRN 09/16/18 [Duoneb 0.5 mg-3 mg/3 ml Soln] ampul.neb Ofloxacin 0.3% Ophth Soln [Ocuflox 5 drops RIGHT EAR BID 5 Days #10 09/29/18 Ophth Soln] bottle Allergies Allergy/AdvReac Type Severity Reaction Status Date / Time allopurinol Allergy Itching Verified 04/08/19 20:58 cephalexin monohydrate Allergy Itching Verified 04/08/19 20:58 [From Keflex] clindamycin Allergy Itching Verified 04/08/19 20:58 NSAIDS (Non-Steroidal AdvReac Unknown STATES NO Verified 04/08/19 20:58 Anti-Inflamma NSAIDS DUE TO GASTRIC BYPASS ciprofloxacin [From Cipro] AdvReac severe Verified 04/08/19 20:58 heartburn doxycycline AdvReac severe Verified 04/08/19 20:58 heartburn Review of Systems ROS Statement: Those systems with pertinent positive or pertinent negative responses have been documented in the HPI. ROS Other: All systems not noted in ROS Statement are negative. Past Medical History Past Medical History: Asthma, Coronary Artery Disease (CAD), Cancer, Diabetes Mellitus, Hearing Disorder / Deafness, Hyperlipidemia, Hypertension, Musculoskeletal Disorder, Osteoarthritis (OA), Skin Disorder, Sleep Apnea/CPAP/BIPAP, Thyroid Disorder Additional Past Medical History / Comment(s): Non-Hodgins Lymphoma-Just finished chemo.Had episodes of bradycardia during chemo.Hx.of abd.mass, ischemic heart disease, NIDDM, deaf/chronic otitis media L ear, chronic otitis media/[place] R ear, chronic low back/neck pain, new R outer knee pain, vertigo, L hand numbness tingling which she attributes to L sided carpal tunnel syndrome, varicosities, possible IBS/colitis and chron's per pt in the past, benign colon polyps, uses C-PAP, eczema. History of Any Multi-Drug Resistant Organisms: None Reported Past Surgical History: Bariatric Surgery, Bowel Resection, Cholecystectomy, Coronary Bypass/CABG, Heart Catheterization, Hernia Repair, Joint Replacement, Orthopedic Surgery, Tubal Ligation Additional Past Surgical History / Comment(s): 09/29/18 removal R ear ventilation tube, L tympanomastiodectomy, CABG x1 vessel (1992), bilateral shoulder surgery/ rt shoulder rotator cuff, bilateral carpal tunnel releases, L wrist surgery d/t injury, total L knee, gastric bypass and then lap band removal. colonoscopy/benign polypectomy, R colectomy d/t mass, umbilical hernia repair Past Anesthesia/Blood Transfusion Reactions: Motion Sickness Additional Past Anesthesia/Blood Transfusion Reaction / Comment(s): VERTIGO Past Psychological History: No Psychological Hx Reported Smoking Status: Former smoker Past Alcohol Use History: None Reported Past Drug Use History: None Reported - Past Family History Mother Additional Family Medical History / Comment(s): Pt states her mother never went to the doctor so she does not know of any medical problems. Mother lived to be 87yrs old. Father Additional Family Medical History / Comment(s): Father at the age of 67yrs, pt does not know cause of . He had alcohol abuse Sister(s) Family Medical History: Cancer Additional Family Medical History / Comment(s): LUNG CA General Exam Limitations: no limitations General appearance: alert, in no apparent distress Head exam: Present: atraumatic, normocephalic, normal inspection Respiratory exam: Present: normal lung sounds bilaterally. Absent: respiratory distress, wheezes, rales, rhonchi, stridor Cardiovascular Exam: Present: regular rate, normal rhythm, normal heart sounds. Absent: systolic murmur, diastolic murmur, rubs, gallop, clicks Skin exam: Present: other (Is a hematoma on the left forearm, small superficial wound to the right arm there is minimal bleeding neurovascular intact) Course Vital Signs 04/08/19 20:54 Temperature 97.9 F Pulse Rate 70 Respiratory 18 Rate Blood Pressure 134/80 O2 Sat by Pulse 95 Oximetry Medical Decision Making - Medical Decision Making 68-year-old female presented for hematoma rash. Patient wounds were redressed her tetanus is up-to-date patient will be discharged. Disposition Clinical Impression: Traumatic hematoma of left upper arm Disposition: HOME SELF-CARE Condition: Stable Additional Instructions: Please return to the Emergency Department if symptoms worsen or any other concerns. Is patient prescribed a controlled substance at d/c from ED?: No Referrals: Padilla Santiago MD [Primary Care Provider] - 1-2 days Time of Disposition: 21:38
== END 2019-04-08 22:06 | disposition home or self-care (01) ==
LOC: EC 20:53
DX: S40.022A Contusion of left upper arm, initial encounter (principal); S41.101A Unspecified open wound of right upper arm, initial encounter; E78.5 Hyperlipidemia, unspecified; E07.9 Disorder of thyroid, unspecified; E11.9 Type 2 diabetes mellitus without complications; H91.90 Unspecified hearing loss, unspecified ear; I10 Essential (primary) hypertension; I25.10 Atherosclerotic heart disease of native coronary artery without angina pectoris; J45.909 Unspecified asthma, uncomplicated; M19.90 Unspecified osteoarthritis, unspecified site; G56.03 Carpal tunnel syndrome, bilateral upper limbs; G47.30 Sleep apnea, unspecified; Z79.84 Long term (current) use of oral hypoglycemic drugs; Z79.51 Long term (current) use of inhaled steroids; Z79.890 Hormone replacement therapy; Z79.899 Other long term (current) drug therapy; Z88.1 Allergy status to other antibiotic agents; Z88.6 Allergy status to analgesic agent; Z88.8 Allergy status to other drugs, medicaments and biological substances; Z85.72 Personal history of non-Hodgkin lymphomas; Z87.891 Personal history of nicotine dependence; Z92.21 Personal history of antineoplastic chemotherapy; Z98.84 Bariatric surgery status; Z99.89 Dependence on other enabling machines and devices; Z95.1 Presence of aortocoronary bypass graft; Z95.5 Presence of coronary angioplasty implant and graft; Z96.652 Presence of left artificial knee joint; W20.8XXA Other cause of strike by thrown, projected or falling object, initial encounter
CPT/HCPCS: 99283

== ENCOUNTER → 2019-04-26 | Outpatient (CLI) | payer MEDICARE, OTHER ==
--- NOTE | 2019-04-27 14:10 | MR ---
EXAMINATION TYPE: MR hip RT wo con DATE OF EXAM: 04/26/2019 COMPARISON: PET/CT dated 12/24/2018 HISTORY: Right hip pain. History of lymphoma. TECHNIQUE: Multiplanar, multisequence images of the right hip were acquired without intravenous contrast. FINDINGS: The femoral heads maintain a normal rounded contour. Subchondral cysts are seen multifocall y within the right acetabulum. There are small marginal osteophytes of the right femoral neck and lef t femoral neck as well as severe joint space narrowing on the right femoral acetabular joint with scl erosis of the femoral head and acetabulum. There is mild narrowing of the left femoral acetabular emir nt. There is a small right hip joint effusion. There is increased signal in the left abductor musculature indicative of myositis. Artifact is seen on the images obscuring the left hemipelvis partially. There is diffuse chondral loss of the anterior superior femoral acetabular joint and nondisplaced tea r of the anterior superior labrum at the chondral labral junction. This appears as a degenerative tea r with labral heterogeneity. No suspicious bone marrow replacing process seen. Incidental note of thickening diffusely of the sigmoid colon without inflammatory fat stranding. Brian elate for mild grade colitis. Axial T2 imaging is limited. No right hip fracture or dislocation is se en. IMPRESSION: 1. Advanced right femoral acetabular arthropathy with anterior superior labral tear, suspected degene rative tear with underlying labral degeneration. 2. No evidence of right hip fracture/dislocation, abnormal bone signal nor avascular necrosis. 3. Left abductor myositis in the originating fibers of the vastus lateralis/intermedius. 4. Moderate left femoral acetabular arthropathy is partially visualized. 5. Diffuse thickening of the sigmoid colon is seen. Correlate for colitis.
== END | disposition home or self-care (01) ==
LOC: RADMRIMAIN 09:02
PROVIDERS: ATTEND Orthopaedic Surgery
DX: M16.11 Unilateral primary osteoarthritis, right hip (principal); M60.88 Other myositis, other site

== ENCOUNTER → 2019-06-30 | Outpatient (CLI) | payer MEDICARE, OTHER ==
[2019-06-30 10:35] LABS: African American GFR (CKD) >90 (>60 ml/min/1.73 sqM); Blood Urea Nitrogen 13 mg/dL (7-17)
--- NOTE | 2019-06-30 11:41 | CT ---
EXAMINATION TYPE: CT ChestAbdPelvis w con DATE OF EXAM: 06/30/2019 COMPARISON: PET CT fusion 12/24/[address] dated 05/20/2018 HISTORY: Follow up lymphoma CT DLP: 2219.2 mGycm CONTRAST: CT scan of the chest, abdomen and pelvis is performed with Oral Contrast and with IV Contrast, patien t injected with 100 mL of Isovue 300. CT Chest: LUNGS: The lungs are clear and free of infiltrate or atelectasis. No pulmonary nodule or mass is det ected. No pleural effusion or CT evidence of interstitial lung disease. MEDIASTINUM: Thoracic aorta is of normal caliber. The heart is enlarged. No evidence for mediastin al mass or adenopathy. HILAR STRUCTURES: No evidence for mass. No hilar adenopathy is appreciated. OTHER: No significant abnormality. CONTRAST CT ABDOMEN AND PELVIS FINDINGS: LIVER/GB: Mild hepatic steatosis noted. The gallbladder is surgically absent.No space occupying hep atic lesion. Biliary tree is of normal caliber. PANCREAS: No inflammation. No distinct mass. SPLEEN: No splenic enlargement. No lesion seen. ADRENALS: No nodule. No thickening. KIDNEYS/BLADDER: No hydronephrosis. Nonobstructing nephrolithiasis of the lower pole left kidney. Re nal cystic changes identified. BOWEL: Normal appendix. Normal bowel caliber. No inflammation. Sigmoid diverticulosis without diver ticulitis. GENITAL ORGANS: No gross abnormality. LYMPH NODES: No greater than 1cm abdominal or pelvic lymph nodes are appreciated. AORTA: No significant abnormality. OSSEOUS STRUCTURES: No significant abnormality is seen. OTHER: No significant additional abnormality is seen. IMPRESSION: 1. No evidence for adenopathy at this time. 2. Mild fatty hepatic infiltration. 3. Nonobstructing left-sided nephrolithiasis. 4. Cardiomegaly.
== END ==
LOC: RADCTMAIN 09:15
PROVIDERS: ATTEND Internal Medicine Hematology & Oncology
DX: Z03.89 Encounter for observation for other suspected diseases and conditions ruled out (principal); C83.39 Diffuse large B-cell lymphoma, extranodal and solid organ sites; K76.0 Fatty (change of) liver, not elsewhere classified; N20.0 Calculus of kidney; I51.7 Cardiomegaly
CPT/HCPCS: 82565; 84520; 71260; 74177; 36415; Q9967

== ENCOUNTER 2019-07-03 11:33 | Observation (INO) | payer MEDICARE, OTHER ==
[2019-07-03 15:38] LABS: ALT 24 U/L (9-52); AST 23 U/L (14-36); African American GFR (CKD) >90 (>60 ml/min/1.73 sqM); Albumin 3.8 g/dL (3.5-5.0); Alkaline Phosphatase 77 U/L (38-126); Anion Gap 5 mmol/L; Blood Urea Nitrogen 12 mg/dL (7-17); Calcium 10.1 mg/dL (8.4-10.2); Carbon Dioxide 28 mmol/L (22-30); Chloride 109 mmol/L (98-107); Glucose 96 mg/dL (74-99); Non-African American GFR(CKD) 82 (>60 ml/min/1.73 sqM); Potassium 4.2 mmol/L (3.5-5.1); Sodium 142 mmol/L (137-145); Total Bilirubin 0.3 mg/dL (0.2-1.3); Total Protein 6.1 g/dL (6.3-8.2)
[2019-07-03 15:55] LABS: HCT 34.6 % (34.0-46.0); HGB 11.1 gm/dL (11.4-16.0); Hypochromasia Slight; MCH 28.8 pg (25.0-35.0); MCV 90.1 fL (80.0-100.0); Mean Platelet Volume 6.4; Platelet Count 346 k/uL (150-450); RBC 3.85 m/uL (3.80-5.40); RDW 15.8 % (11.5-15.5); WBC 2.4 k/uL (3.8-10.6)
[2019-07-03] MEDS ORDERED: MECLIZINE 25 MG TAB PO PRN (16:04)
[2019-07-03] MEDS ORDERED: PANTOPRAZOLE 40 MG TABLET PO PRN (16:04)
--- NOTE | 2019-07-03 16:16 | XR ---
EXAMINATION TYPE: XR chest 2V DATE OF EXAM: 07/03/2019 COMPARISON: Prior chest x-ray 07/12/2018 HISTORY: Dyspnea TECHNIQUE: Frontal and lateral views of the chest are obtained. FINDINGS: Patient is post median sternotomy. There is no focal air space opacity, pleural effusion, o r pneumothorax seen. The cardiac silhouette size is stable, enlarged. The osseous structures are i ntact, postop changes noted to the right shoulder. Aorta is dense. IMPRESSION: No acute cardiopulmonary process. Cardiomegaly. Postop changes.
[2019-07-03] MEDS: IPRATROPIUM-ALBUTEROL 3 ML NEB INHALATION SCH ×2 (16:17→19:52)
[2019-07-03] MEDS: methylPREDNISolone SOD SUCCI 40 MG/ML 1 ML VIAL IV SCH (16:19)
[2019-07-03] MEDS: SODIUM CHLORIDE 0.9% 1,000 ML IV SCH (16:19)
[2019-07-03] MEDS: HYDROcodone/APAP 10-325MG 1 EACH TAB PO PRN ×2 (16:41→21:02)
[2019-07-03 16:53] LABS: Neutrophils % (M) 19 %
[2019-07-03 16:54] LABS: Band Neutrophils % 2 %; Lymphocytes # (M) 1.03 k/uL (1.0-4.8); Monocytes # (M) 0.86 k/uL (0-1.0); Nucleated Red Blood Cells 0 /100 WBC (0-0); Total Cells Counted 100
[2019-07-03] MEDS: SYMBICORT 80-4.5 MCG INHALER INHALATION SCH (19:52)
[2019-07-03 20:32] LABS: Glucose,Whole Blood 193 mg/dL (75-99)
[2019-07-03 20:59] LABS: Appearance,Urine Cloudy (Clear); Bilirubin,Urine Negative (Negative); Blood,Urine Negative (Negative); Color,Urine Yellow; Glucose,Urine (UA) 3+ (Negative); Ketones,Urine 1+ (Negative); Leukocyte Esterase,Urine Moderate (Negative); Mucus,Urine Moderate /hpf; Nitrite,Urine Negative (Negative); PH, Urine 5.5 (5.0-8.0); Protein,Urine 1+ (Negative); RBC,Urine 13 /hpf (0-5); Specific Gravity,Urine 1.035 (1.001-1.035); Squamous Epithelial Cell,Urine 5 /hpf (0-4); WBC,Urine 38 /hpf (0-5)
[2019-07-03] MEDS ORDERED: MONTELUKAST 10 MG TAB PO SCH (21:00)
[2019-07-03] MEDS ORDERED: ATORVASTATIN 40 MG TAB PO SCH (21:00)
[2019-07-03] MEDS: guaiFENesin-Coden 100-10MG/5ML 10 ML CUP PO PRN (21:03)
[2019-07-03] MEDS: INSULIN ASPART (NovoLOG) 100 UNIT/ML VIAL SQ SCH (21:03)
[2019-07-04] MEDS: methylPREDNISolone SOD SUCCI 40 MG/ML 1 ML VIAL IV SCH ×3 (00:32→17:59)
[2019-07-04] MEDS: HYDROcodone/APAP 10-325MG 1 EACH TAB PO PRN ×4 (02:01→15:15)
[2019-07-04] MEDS: guaiFENesin-Coden 100-10MG/5ML 10 ML CUP PO PRN ×2 (03:58→11:12)
[2019-07-04] MEDS ORDERED: LEVOTHYROXINE 75 MCG TAB PO SCH (06:30)
[2019-07-04 07:14] LABS: Glucose,Whole Blood 169 mg/dL (75-99)
[2019-07-04] MEDS ORDERED: GLIMEPIRIDE 1 MG TAB PO SCH (07:30)
[2019-07-04] MEDS: INSULIN ASPART (NovoLOG) 100 UNIT/ML VIAL SQ SCH ×3 (07:59→17:59)
[2019-07-04 08:27] LABS: Basophils % (A) 1 %; Eosinophils % (A) 0 %; HCT 33.6 % (34.0-46.0); HGB 10.9 gm/dL (11.4-16.0); Hypochromasia Slight; Lymphocytes # (A) 0.3 k/uL (1.0-4.8); Lymphocytes % (A) 21 %; MCH 29.2 pg (25.0-35.0); MCHC 32.4 g/dL (31.0-37.0); MCV 90.2 fL (80.0-100.0); Mean Platelet Volume 6.3; Monocytes # (A) 0.2 k/uL (0-1.0); Monocytes % (A) 15 %; Neutrophils # (A) 0.8 k/uL (1.3-7.7); Neutrophils % (A) 61 %; Platelet Count 345 k/uL (150-450); RBC 3.73 m/uL (3.80-5.40); RDW 15.7 % (11.5-15.5)
[2019-07-04 08:30] LABS: ALT 22 U/L (9-52); AST 22 U/L (14-36); African American GFR (CKD) >90 (>60 ml/min/1.73 sqM); Albumin 3.8 g/dL (3.5-5.0); Alkaline Phosphatase 69 U/L (38-126); Anion Gap 7 mmol/L; Blood Urea Nitrogen 15 mg/dL (7-17); Calcium 10.2 mg/dL (8.4-10.2); Carbon Dioxide 25 mmol/L (22-30); Chloride 108 mmol/L (98-107); Glucose 164 mg/dL (74-99); Non-African American GFR(CKD) >90 (>60 ml/min/1.73 sqM); Potassium 4.7 mmol/L (3.5-5.1); Sodium 140 mmol/L (137-145); Total Bilirubin 0.4 mg/dL (0.2-1.3); Total Protein 6.1 g/dL (6.3-8.2)
[2019-07-04 08:36] LABS: WBC 1.4 k/uL (3.8-10.6)
[2019-07-04] MEDS ORDERED: ASPIRIN 81 MG PO SCH (09:00)
[2019-07-04] MEDS ORDERED: LISINOPRIL 5 MG TAB PO SCH (09:00)
[2019-07-04] MEDS ORDERED: MULTIVITAMINS, THERA 1 EACH TAB PO SCH (09:00)
--- NOTE | 2019-07-04 09:35 | P.CONS ---
History of Present Illness - Reason for Consult Consult date: 07/04/19 UTI, multidrug ALLERGY - History of Present Illness This is a 69-year-old female known to ID service due to her history of diffuse large B-cell lymphoma. Patient was last seen in August of this year during that hospitalization she was treated for subcutaneous nodules/abscess left groin and was treated with minocycline. Patient states that she completed her chemotherapy treatments in November of this she had her and had a repeat CAT scan last week that revealed no evidence of adenopathy at this time. Mild fatty hepatic infiltration. Nonobstructing left-sided nephrolithiasis. Cardiomegaly. Patient has an appointment tomorrow to see Dr. Peralta for CAT scan results. Patient was apparently a direct admit for acute exacerbation of COPD. Patient states she has a cough that is usually nonproductive occasional clear white sputum and a scratchy throat. She denies any difficulty breathing. No fever or chills. Consult in place for urinary tract infection with multidrug ALLERGIES. Patient denies having any dysuria, increased frequency, urgency. She has had urinary tract infections in the past. Urinalysis cloudy, leukoesterase moderate, RBCs 13, wbc's 38, squamous cells 5, mucus moderate. WBC 2.4, hemoglobin 11.1, platelet count 346. Creatinine was 0.76. ProBNP 245, albumin 3.8. Patient is not currently on antibiotics. Review of Systems Constitutional: Denies anorexia, Denies chills, Denies fatigue, Denies fever, Denies lethargy, Denies poor appetite, Denies weakness Eyes: denies blurred vision, denies pain Ears, nose, mouth and throat: Denies dysphagia, Denies nasal congestion, Denies nasal discharge, Denies vertigo Cardiovascular: Denies chest pain, Denies decreased exercise tolerance, Denies dyspnea on exertion, Denies leg edema, Denies lightheadedness, Denies shortness of breath, Denies syncope Respiratory: Reports cough, Reports cough with sputum, Denies dyspnea, Denies excessive sputum, Denies hemoptysis, Denies home oxygen, Denies wheezing Gastrointestinal: Denies abdominal pain, Denies diarrhea, Denies loss of appetite, Denies nausea, Denies vomiting Genitourinary: Denies difficulty voiding, Denies dysuria, Denies flank pain, Denies hematuria, Denies urgency, Denies urinary frequency Musculoskeletal: Denies frequent falls, Denies gait dysfunction, Denies muscle weakness, Denies myalgias Integumentary: Denies pruritus, Denies rash, Denies wounds Neurological: Denies change in mentation, Denies change in speech, Denies numbness, Denies weakness Psychiatric: Denies anxiety, Denies depression Endocrine: Denies fatigue, Denies weight change Past Medical History Past Medical History: Asthma, Coronary Artery Disease (CAD), Cancer, Diabetes Mellitus, Hearing Disorder / Deafness, Hyperlipidemia, Hypertension, Musculoskeletal Disorder, Osteoarthritis (OA), Skin Disorder, Sleep Apnea/CPAP/BIPAP, Thyroid Disorder Additional Past Medical History / Comment(s): Non-Hodgins Lymphoma-Just finished chemo November 2018/episodes of bradycardia during chemo, colectomy d/t mass, ischemic heart disease, NIDDM, deaf/chronic otitis media L ear, KASHIA R ear, chronic low back/neck pain, R outer knee/hip and groin pain, vertigo, L hand numbness tingling which she attributes to past L wrist fracture with surgery, RLS, varicosities, possible IBS/colitis and chron's per pt in the past, benign colon polyps, uses C-PAP, hypothyroid, sinus allergies, eczema. History of Any Multi-Drug Resistant Organisms: None Reported Past Surgical History: Appendectomy, Bariatric Surgery, Bowel Resection, Cholecystectomy, Coronary Bypass/CABG, Heart Catheterization, Hernia Repair, Joint Replacement, Orthopedic Surgery, Tubal Ligation Additional Past Surgical History / Comment(s): 09/29/18 removal R ear ventilation tube, R tympanomastiodectomy, CABG x1 vessel (1992), bilateral shoulder surgery/ rt shoulder rotator cuff, bilateral carpal tunnel releases, L wrist surgery d/t injury, total L knee, lap banding, gastric bypass and then lap band removal, colonoscopy/benign polypectomy, R colectomy d/t mass, umbilical hernia repair Past Anesthesia/Blood Transfusion Reactions: Motion Sickness Additional Past Anesthesia/Blood Transfusion Reaction / Comm: VERTIGO Smoking Status: Former smoker Additional Past Alcohol Use History / Comment(s): Single and lives in the family home with daughter, son, brother and grandchild. 2 pet dogs in the home. No service. No international travel. Does not work outside of the home. No current tobacco or alcohol use, stopped smoking in 1992. No illicit drug use or alcohol use. - Past Family History Mother Additional Family Medical History / Comment(s): Pt states her mother never went to the doctor so she does not know of any medical problems. Mother lived to be 87yrs old. Father Additional Family Medical History / Comment(s): Father at the age of 67yrs, pt does not know cause of . Sister(s) Family Medical History: Cancer Additional Family Medical History / Comment(s): LUNG CA Medications and Allergies Home Medications Medication Instructions Recorded Confirmed Type Simvastatin [Zocor] 80 mg PO HS 03/21/14 07/03/19 History Zafirlukast [Accolate] 20 mg PO BID 03/21/14 07/03/19 History Ergocalciferol [Vitamin D2 50,000 unit PO MO 10/09/14 07/03/19 History (DRISDOL)] Levothyroxine Sodium [Synthroid] 150 mcg PO DAILY 10/09/14 07/03/19 History Glimepiride [Amaryl] 1 mg PO AC-BRKFST 10/08/15 07/03/19 History rOPINIRole HCL [Requip] 1 mg PO HS 08/04/17 07/03/19 History Meclizine [Antivert] 25 mg PO TID PRN #14 tab 08/07/18 07/03/19 Rx Cyanocobalamin (Vitamin B-12) 1,000 mcg PO MOWEFR 08/22/18 07/03/19 History [Vitamin B-12] HYDROcodone/APAP 10-325MG [[place] 1 tab PO Q4H PRN 08/22/18 07/03/19 History 10-325] Lisinopril [Zestril] 5 mg PO DAILY 08/22/18 07/03/19 History Fluticasone/Salmeterol [Advair 1 puff INHALATION RT-BID 09/12/18 07/03/19 History 250-50 Diskus] Aspirin EC [Ecotrin Low Dose] 81 mg PO DAILY 07/03/19 07/03/19 History Ipratropium-Albuterol Nebulize 3 ml INHALATION RT-QID PRN 07/03/19 07/03/19 History [Duoneb 0.5 mg-3 mg/3 ml Soln] Multivitamins, Thera [Multivitamin 1 tab PO DAILY 07/03/19 07/03/19 History (formulary)] Pantoprazole [Protonix] 40 mg PO AC-BID PRN 07/03/19 07/03/19 History Allergies Allergy/AdvReac Type Severity Reaction Status Date / Time allopurinol Allergy Itching Verified 07/03/19 15:22 cephalexin monohydrate Allergy Itching Verified 07/03/19 15:22 [From Keflex] clindamycin Allergy Itching Verified 07/03/19 15:22 NSAIDS (Non-Steroidal AdvReac Unknown STATES NO Verified 07/03/19 15:22 Anti-Inflamma NSAIDS DUE TO GASTRIC BYPASS ciprofloxacin [From Cipro] AdvReac severe Verified 07/03/19 15:22 heartburn doxycycline AdvReac severe Verified 07/03/19 15:22 heartburn Physical Exam Vitals: Vital Signs Temp Pulse Pulse Pulse Resp BP Pulse Ox 07/04/19 05:00 97.9 F 64 16 103/62 95 07/03/19 21:00 97.6 F 75 20 106/64 94 L 07/03/19 20:20 18 07/03/19 20:01 88 07/03/19 19:52 80 07/03/19 16:25 80 07/03/19 16:19 76 07/03/19 13:24 97.9 F 80 16 110/74 97 Intake and Output 07/03/19 07/04/19 07/04/19 22:59 06:59 14:59 Intake Total 625 590 240 Balance 625 590 240 Intake: Intake, IV Titration 175 Amount Sodium Chloride 0.9% 1, 175 000 ml @ 50 mls/hr IV . Q20H [facility] Rx#:[id number] Oral 450 590 240 Other: Voiding Method Toilet # Voids 2 2 Gen: This is a 69-year-old female. She is sitting up in bed and appears to be comfortable and in no acute distress. No respiratory distress noted. HEENT: Head is atraumatic, normocephalic. Pupils equal, round. Sclerae is anicteric. Oral mucous membranes are moist. No thrush. Patient is edentulous. She states she just received new dentures that are at home. NECK: Supple. No JVD. No lymphadenopathy. No thyromegaly. LUNGS: Clear to auscultation. No wheezes or rhonchi. No intercostal retract ions. HEART: Regular rate and rhythm. No murmur. ABDOMEN: Soft. Bowel sounds are present. No masses. No tenderness. No erythema under abdominal apron. EXTREMITIES: No pedal edema. No calf tenderness. Dorsalis pedis +2 bilaterally. NEUROLOGICAL: Patient is awake, alert and oriented x3. Cranial nerves 2 through 12 are grossly intact. Results Results: Laboratory Results WBC 1.4 k/uL (3.8-10.6) L* 07/04/19 07:37 RBC 3.73 m/uL (3.80-5.40) L 07/04/19 07:37 Hgb 10.9 gm/dL (11.4-16.0) L 07/04/19 07:37 Hct 33.6 % (34.0-46.0) L 07/04/19 07:37 MCV 90.2 fL (80.0-100.0) 07/04/19 07:37 MCH 29.2 pg (25.0-35.0) 07/04/19 07:37 MCHC 32.4 g/dL (31.0-37.0) 07/04/19 07:37 RDW 15.7 % (11.5-15.5) H 07/04/19 07:37 Plt Count 345 k/uL (150-450) 07/04/19 07:37 Neutrophils % 61 % 07/04/19 07:37 Neutrophils % (Manual) 19 % 07/03/19 15:04 Band Neutrophils % 2 % 07/03/19 15:04 Lymphocytes % 21 % 07/04/19 07:37 Lymphocytes % (Manual) 43 % 07/03/19 15:04 Monocytes % 15 % 07/04/19 07:37 Monocytes % (Manual) 36 % 07/03/19 15:04 Eosinophils % 0 % 07/04/19 07:37 Basophils % 1 % 07/04/19 07:37 Neutrophils # 0.8 k/uL (1.3-7.7) L 07/04/19 07:37 Neutrophils # (Manual) 0.50 k/uL (1.3-7.7) L 07/03/19 15:04 Lymphocytes # 0.3 k/uL (1.0-4.8) L 07/04/19 07:37 Lymphocytes # (Manual) 1.03 k/uL (1.0-4.8) 07/03/19 15:04 Monocytes # 0.2 k/uL (0-1.0) 07/04/19 07:37 Monocytes # (Manual) 0.86 k/uL (0-1.0) 07/03/19 15:04 Eosinophils # 0.0 k/uL (0-0.7) 07/04/19 07:37 Basophils # 0.0 k/uL (0-0.2) 07/04/19 07:37 Nucleated RBCs 0 /100 WBC (0-0) 07/03/19 15:04 Manual Slide Review Performed 07/03/19 15:04 Hypochromasia Slight 07/04/19 07:37 D-Dimer 0.59 mg/L FEU (<0.60) 07/03/19 15:04 Sodium 140 mmol/L (137-145) 07/04/19 07:37 Potassium 4.7 mmol/L (3.5-5.1) 07/04/19 07:37 Chloride 108 mmol/L (98-107) H 07/04/19 07:37 Carbon Dioxide 25 mmol/L (22-30) 07/04/19 07:37 Anion Gap 7 mmol/L 07/04/19 07:37 BUN 15 mg/dL (7-17) 07/04/19 07:37 Creatinine 0.58 mg/dL (0.52-1.04) 07/04/19 07:37 Est GFR (CKD-EPI)AfAm >90 (>60 ml/min/1.73 sqM) 07/04/19 07:37 Est GFR (CKD-EPI)NonAf >90 (>60 ml/min/1.73 sqM) 07/04/19 07:37 Glucose 164 mg/dL (74-99) H 07/04/19 07:37 POC Glucose (mg/dL) 169 mg/dL (75-99) H 07/04/19 07:12 POC Glu [employer] Technical Director ID Jackson Morrow 07/04/19 07:12 Calcium 10.2 mg/dL (8.4-10.2) 07/04/19 07:37 Total Bilirubin 0.4 mg/dL (0.2-1.3) 07/04/19 07:37 AST 22 U/L (14-36) 07/04/19 07:37 ALT 22 U/L (9-52) 07/04/19 07:37 Alkaline Phosphatase 69 U/L (38-126) 07/04/19 07:37 NT-Pro-B Natriuret Pep 245 pg/mL 07/03/19 15:04 Total Protein 6.1 g/dL (6.3-8.2) L 07/04/19 07:37 Albumin 3.8 g/dL (3.5-5.0) 07/04/19 07:37 Urine Color Yellow 07/03/19 20:40 Urine Appearance Cloudy (Clear) H 07/03/19 20:40 Urine pH 5.5 (5.0-8.0) 07/03/19 20:40 Ur Specific [place] 1.035 (1.001-1.035) 07/03/19 20:40 Urine Protein 1+ (Negative) H 07/03/19 20:40 Urine Glucose (UA) 3+ (Negative) H 07/03/19 20:40 Urine Ketones 1+ (Negative) H 07/03/19 20:40 Urine Blood Negative (Negative) 07/03/19 20:40 Urine Nitrite Negative (Negative) 07/03/19 20:40 Urine Bilirubin Negative (Negative) 07/03/19 20:40 Urine Urobilinogen 2.0 mg/dL (<2.0) 07/03/19 20:40 Ur Leukocyte Esterase Moderate (Negative) H 07/03/19 20:40 Urine RBC 13 /hpf (0-5) H 07/03/19 20:40 Urine WBC 38 /hpf (0-5) H 07/03/19 20:40 Ur Squamous Epith Cells 5 /hpf (0-4) H 07/03/19 20:40 Urine Mucus Moderate /hpf (None) H 07/03/19 20:40 CBC & Chem 7: 07/04/19 07:37 07/04/19 07:37 Labs: Abnormal Lab Results - Last 24 Hours (Table) 07/03/19 07/03/19 07/03/19 Range/Units 15:04 15:04 20:30 WBC 2.4 L (3.8-10.6) k/uL RBC (3.80-5.40) m/uL Hgb 11.1 L (11.4-16.0) gm/dL Hct (34.0-46.0) % RDW 15.8 H (11.5-15.5) % Neutrophils # (1.3-7.7) k/uL Neutrophils # (Manual) 0.50 L (1.3-7.7) k/uL Lymphocytes # (1.0-4.8) k/uL Chloride 109 H (98-107) mmol/L Glucose (74-99) mg/dL POC Glucose (mg/dL) 193 H (75-99) mg/dL Total Protein 6.1 L (6.3-8.2) g/dL Urine Appearance (Clear) Urine Protein (Negative) Urine Glucose (UA) (Negative) Urine Ketones (Negative) Ur Leukocyte Esterase (Negative) Urine RBC (0-5) /hpf Urine WBC (0-5) /hpf Ur Squamous Epith Cells (0-4) /hpf Urine Mucus (None) /hpf 07/03/19 07/04/19 07/04/19 Range/Units 20:40 07:12 07:37 WBC 1.4 L* (3.8-10.6) k/uL RBC 3.73 L (3.80-5.40) m/uL Hgb 10.9 L (11.4-16.0) gm/dL Hct 33.6 L (34.0-46.0) % RDW 15.7 H (11.5-15.5) % Neutrophils # 0.8 L (1.3-7.7) k/uL Neutrophils # (Manual) (1.3-7.7) k/uL Lymphocytes # 0.3 L (1.0-4.8) k/uL Chloride (98-107) mmol/L Glucose (74-99) mg/dL POC Glucose (mg/dL) 169 H (75-99) mg/dL Total Protein (6.3-8.2) g/dL Urine Appearance Cloudy H (Clear) Urine Protein 1+ H (Negative) Urine Glucose (UA) 3+ H (Negative) Urine Ketones 1+ H (Negative) Ur Leukocyte Esterase Moderate H (Negative) Urine RBC 13 H (0-5) /hpf Urine WBC 38 H (0-5) /hpf Ur Squamous Epith Cells 5 H (0-4) /hpf Urine Mucus Moderate H (None) /hpf 07/04/19 Range/Units 07:37 WBC (3.8-10.6) k/uL RBC (3.80-5.40) m/uL Hgb (11.4-16.0) gm/dL Hct (34.0-46.0) % RDW (11.5-15.5) % Neutrophils # (1.3-7.7) k/uL Neutrophils # (Manual) (1.3-7.7) k/uL Lymphocytes # (1.0-4.8) k/uL Chloride 108 H (98-107) mmol/L Glucose 164 H (74-99) mg/dL POC Glucose (mg/dL) (75-99) mg/dL Total Protein 6.1 L (6.3-8.2) g/dL Urine Appearance (Clear) Urine Protein (Negative) Urine Glucose (UA) (Negative) Urine Ketones (Negative) Ur Leukocyte Esterase (Negative) Urine RBC (0-5) /hpf Urine WBC (0-5) /hpf Ur Squamous Epith Cells (0-4) /hpf Urine Mucus (None) /hpf Assessment and Plan Plan: This is a 69-year-old female who presented to the hospital with COPD exacerbation and seems to have had significant improvement area and she continues to have a cough with occasional sputum production. Regarding possible urinary tract infection, patient does not have any symptoms of UTI at this time most likely this is asymptomatic bacteriuria. Do not recommend antibiotics at this point. Continue supportive care. Further recommendations as patient progresses. The above dictated assessment and findings were discussed with Dr. Hess. The impression and plan of care have been directed as dictated. Naima Grace nurse practitioner acting as scribe for Dr. Hess.
[2019-07-04] MEDS: SYMBICORT 80-4.5 MCG INHALER INHALATION SCH (09:38)
[2019-07-04] MEDS: IPRATROPIUM-ALBUTEROL 3 ML NEB INHALATION SCH ×3 (09:38→16:38)
[2019-07-04 11:18] LABS: Glucose,Whole Blood 146 mg/dL (75-99)
[2019-07-04] MEDS: SODIUM CHLORIDE 0.9% 1,000 ML IV SCH (12:19)
[2019-07-04] MEDS ORDERED: LEVOFLOXACIN 500MG-D5W PMX 500 MG in DEXTROSE/WATER 1 100ML.BAG IVPB SCH (13:00)
[2019-07-04] MEDS ORDERED: FILGRASTIM-SNDZ 480 MCG/0.8 ML SYRINGE SQ SCH (13:30)
--- NOTE | 2019-07-04 14:51 | HP ---
HISTORY AND PHYSICAL HISTORY: [id number]-old white female admitted with cough, congestion, shortness of breath, admitted for her worsening breathing and shortness of breath, started on intravenous steroids and updraft treatments. Chest x-ray was read as normal. Recent CAT scan shows no evidence of any beta cell lymphoma for which she was recently treated with chemotherapy. REVIEW OF SYSTEMS: Fourteen-point review of systems is positive for dizziness, shortness of breath, weakness. ENT within normal limits. Fourteen-point review of systems, otherwise, is negative. PAST MEDICAL HISTORY: Asthma, coronary artery disease, beta cell lymphoma, diabetes mellitus, hearing disorder, deafness, hypertension, osteoarthritis, CPAP, sleep apnea, hypothyroidism, non-Hodgkin's lymphoma, recent bradycardia, wrist fractures, hypothyroidism, sinus allergies, eczema, history of vertigo. PAST SURGICAL HISTORY: Appendectomy, bariatric surgery, cholecystectomy, coronary artery bypass grafting, heart catheterization, hernia repair, orthopaedic surgery, tubal ligation, bilateral surgeries on bilateral shoulders, carpal tunnels, wrists, Lap-Band. FAMILY HISTORY: Mother, unsure. Father, unsure. Sister, lung cancer. HOMED MEDICATIONS: 1. Zocor. 2. Accolate. 3. Amaryl. 4. Synthroid. 5. Requip. 6. Antivert. 7. Zestril. 8. Blanket. 9. Multivitamin. 10.Protonix. ALLERGIES: MENTIONED ABOVE, CLINDAMYCIN, KEFLEX, NSAIDS, CIPRO, DOXYCYCLINE. PHYSICAL EXAMINATION: VITAL SIGNS: Temperature 97, pulse 67, respiratory rate 16 to 20, O2 saturation 94% to 95%. GENERAL: [id number]-old white female, obese. BMI is over 40. HEENT: Her hair is intact. No thrush. External auditory canals within normal limits. NECK: Supple. No mass. LUNGS: Rhonchi and wheeze. Diminished air flow times four. HEART: S1 and S2. ABDOMEN: Abdomen is soft, distended, obesity. EXTREMITIES: 2+ edema. NEUROLOGIC: Cranial nerves are intact. LABORATORY DATA: Laboratories show low white count, low hemoglobin. White count is 1.4, hemoglobin is 10.9, platelets 345,000. White count on admission was 2.4 which has dropped down a point since yesterday. She has moderate leukocyte esterase in her urine with 38 white cells. ASSESSMENT: 1. Positive urinary tract infection with leukopenia. 2. Chronic obstructive pulmonary disease exacerbation. 3. Positive urinary tract infections. Infectious Disease has seen her. Continue with breathing treatments. She has multiple drug allergies to antibiotics. Will get Infectious Disease involved. Continue her breathing treatments. MMODL / IJN: [id number] /
[2019-07-04 15:34] VITALS: BP 124/69; RESP 18; TEMP 98.6
[2019-07-04 16:38] LABS: Hemoglobin A1C 5.8 % (4.0-6.0)
[2019-07-04 16:55] VITALS: PULSE 80
[2019-07-04 17:00] LABS: Glucose,Whole Blood 158 mg/dL (75-99)
--- NOTE | 2019-07-04 17:38 | P.CONS ---
History of Present Illness - Reason for Consult Consult date: 07/04/19 Hx NHL, low WBC,Hgb Requesting physician: Miriam Kee - Chief Complaint SOB, NASEEM - History of Present Illness Ms. Ochoa is a very pleasant female pt of Dr. Peralta who presented with intermittent RLQ pain of about 4 months duration, crampy, intermittent, short d uration, no associated nausea/vomiting, change in bowel habits or weight loss. Colonoscopy in February/2018 was normal. Pain persisted leading to poor prep colonoscopy then CT AP 05/20/18 which revealed diffuse thickening of the terminal ileum and cecum with numerous enlarged matted lymph nodes in RLQ measuring up to 1.8cm. 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 08/02 PET did not show any suspicious uptake in chest/abdomen/pelvis. Jul 2017 started DA-R-EPOCH regimen, 10/01/18, PET was negative for residual lymphoma, she completed 4 cycles of DA R-EPOCH on 10/17/18 which she tolerated well. Repeat PET scan on 12/24/18 revealed no evidence of disease. She had CT last week with ALEJANDRA. She is admitted for , she is feeling much better today with treatment and abx. She denied any fever, vomiting, diarrhea or new pain. Review of Systems 14 point ROS is negative except as stated in HPI Past Medical History Past Medical History: Asthma, Coronary Artery Disease (CAD), Cancer, Diabetes Mellitus, Hearing Disorder / Deafness, Hyperlipidemia, Hypertension, Musculoskeletal Disorder, Osteoarthritis (OA), Skin Disorder, Sleep Apnea/CPAP/BIPAP, Thyroid Disorder Additional Past Medical History / Comment(s): Non-Hodgins Lymphoma-Just finished chemo November 2018/episodes of bradycardia during chemo, colectomy d/t mass, ischemic heart disease, NIDDM, deaf/chronic otitis media L ear, [place] R ear, chronic low back/neck pain, R outer knee/hip and groin pain, vertigo, L hand numbness tingling which she attributes to past L wrist fracture with surgery, RLS, varicosities, possible IBS/colitis and chron's per pt in the past, benign colon polyps, uses C-PAP, hypothyroid, sinus allergies, eczema. History of Any Multi-Drug Resistant Organisms: None Reported Past Surgical History: Appendectomy, Bariatric Surgery, Bowel Resection, Cholecystectomy, Coronary Bypass/CABG, Heart Catheterization, Hernia Repair, Joint Replacement, Orthopedic Surgery, Tubal Ligation Additional Past Surgical History / Comment(s): 09/29/18 removal R ear ventilation tube, R tympanomastiodectomy, CABG x1 vessel (1992), bilateral shoulder surgery/ rt shoulder rotator cuff, bilateral carpal tunnel releases, L wrist surgery d/t injury, total L knee, lap banding, gastric bypass and then lap band removal, colonoscopy/benign polypectomy, R colectomy d/t mass, umbilical hernia repair Past Anesthesia/Blood Transfusion Reactions: Motion Sickness Additional Past Anesthesia/Blood Transfusion Reaction / Comm: VERTIGO Past Psychological History: No Psychological Hx Reported Smoking Status: Former smoker Past Alcohol Use History: None Reported Additional Past Alcohol Use History / Comment(s): Single and lives in the family home with daughter, son, brother and grandchild. 2 pet dogs in the home. No service. No international travel. Does not work outside of the home. No current tobacco or alcohol use, stopped smoking in 1992. No illicit drug use or alcohol use. Past Drug Use History: None Reported - Past Family History Mother Additional Family Medical History / Comment(s): Pt states her mother never went to the doctor so she does not know of any medical problems. Mother lived to be 87yrs old. Father Additional Family Medical History / Comment(s): Father at the age of 67yrs, pt does not know cause of . Sister(s) Family Medical History: Cancer Additional Family Medical History / Comment(s): LUNG CA Medications and Allergies Home Medications Medication Instructions Recorded Confirmed Type Simvastatin [Zocor] 80 mg PO HS 03/21/14 07/03/19 History Zafirlukast [Accolate] 20 mg PO BID 03/21/14 07/03/19 History Ergocalciferol [Vitamin D2 50,000 unit PO MO 10/09/14 07/03/19 History (DRISDOL)] Levothyroxine Sodium [Synthroid] 150 mcg PO DAILY 10/09/14 07/03/19 History Glimepiride [Amaryl] 1 mg PO AC-BRKFST 10/08/15 07/03/19 History rOPINIRole HCL [Requip] 1 mg PO HS 08/04/17 07/03/19 History Meclizine [Antivert] 25 mg PO TID PRN #14 tab 08/07/18 07/03/19 Rx Cyanocobalamin (Vitamin B-12) 1,000 mcg PO MOWEFR 08/22/18 07/03/19 History [Vitamin B-12] HYDROcodone/APAP 10-325MG [[place] 1 tab PO Q4H PRN 08/22/18 07/03/19 History 10-325] Lisinopril [Zestril] 5 mg PO DAILY 08/22/18 07/03/19 History Fluticasone/Salmeterol [Advair 1 puff INHALATION RT-BID 09/12/18 07/03/19 History 250-50 Diskus] Aspirin EC [Ecotrin Low Dose] 81 mg PO DAILY 07/03/19 07/03/19 History Ipratropium-Albuterol Nebulize 3 ml INHALATION RT-QID PRN 07/03/19 07/03/19 History [Duoneb 0.5 mg-3 mg/3 ml Soln] Multivitamins, Thera [Multivitamin 1 tab PO DAILY 07/03/19 07/03/19 History (formulary)] Pantoprazole [Protonix] 40 mg PO AC-BID PRN 07/03/19 07/03/19 History Allergies Allergy/AdvReac Type Severity Reaction Status Date / Time allopurinol Allergy Itching Verified 07/03/19 15:22 cephalexin monohydrate Allergy Itching Verified 07/03/19 15:22 [From Keflex] clindamycin Allergy Itching Verified 07/03/19 15:22 NSAIDS (Non-Steroidal AdvReac Unknown STATES NO Verified 07/03/19 15:22 Anti-Inflamma NSAIDS DUE TO GASTRIC BYPASS ciprofloxacin [From Cipro] AdvReac severe Verified 07/03/19 15:22 heartburn doxycycline AdvReac severe Verified 07/03/19 15:22 heartburn Physical Exam Vitals: Vital Signs Temp Pulse Pulse Resp BP Pulse Ox 07/04/19 12:31 84 07/04/19 12:20 84 07/04/19 09:53 88 07/04/19 09:38 84 07/04/19 05:00 97.9 F 64 16 103/62 95 07/03/19 21:00 97.6 F 75 20 106/64 94 L 07/03/19 20:20 18 07/03/19 20:01 88 07/03/19 19:52 80 07/03/19 16:25 80 07/03/19 16:19 76 Intake and Output 07/04/19 07/04/19 07/04/19 06:59 14:59 22:59 Intake Total 590 480 Balance 590 480 Intake: Oral 590 480 Other: # Voids 2 - Constitutional General appearance: cooperative, morbidly obese, no acute distress - EENT Eyes: anicteric sclerae, edentulous, EOMI ENT: hearing grossly normal, normal oropharynx - Neck Neck: no lymphadenopathy - Respiratory Respiratory: bilateral: CTA - Cardiovascular Rhythm: regular Heart sounds: normal: S1, S2 Abnormal Heart Sounds: no systolic murmur, no diastolic murmur, no rub, no S3 Gallop, no S4 Gallop, no click, no other leg Peripheral Edema: bilateral: None - Gastrointestinal General gastrointestinal: no absent bowel sounds, no decreased bowel sounds, no distended, no hepatomegaly, no hyperactive bowel sounds, normal bowel sounds, no organomegaly, no rigid, no scaphoid, soft, no splenomegaly, no tenderness, no umbilical hernia, no ventral hernia - Integumentary Integumentary: normal - Neurologic Neurologic: CNII-XII intact - Musculoskeletal Musculoskeletal: strength equal bilaterally - Psychiatric Psychiatric: A&O x's 3, appropriate affect, intact judgment & insight Results CBC & Chem 7: 07/04/19 07:37 07/04/19 07:37 Labs: Abnormal Lab Results - Last 24 Hours (Table) 07/03/19 07/03/19 07/03/19 Range/Units 15:04 15:04 20:30 WBC 2.4 L (3.8-10.6) k/uL RBC (3.80-5.40) m/uL Hgb 11.1 L (11.4-16.0) gm/dL Hct (34.0-46.0) % RDW 15.8 H (11.5-15.5) % Neutrophils # (1.3-7.7) k/uL Neutrophils # (Manual) 0.50 L (1.3-7.7) k/uL Lymphocytes # (1.0-4.8) k/uL Chloride 109 H (98-107) mmol/L Glucose (74-99) mg/dL POC Glucose (mg/dL) 193 H (75-99) mg/dL Total Protein 6.1 L (6.3-8.2) g/dL Urine Appearance (Clear) Urine Protein (Negative) Urine Glucose (UA) (Negative) Urine Ketones (Negative) Ur Leukocyte Esterase (Negative) Urine RBC (0-5) /hpf Urine WBC (0-5) /hpf Ur Squamous Epith Cells (0-4) /hpf Urine Mucus (None) /hpf 07/03/19 07/04/19 07/04/19 Range/Units 20:40 07:12 07:37 WBC 1.4 L* (3.8-10.6) k/uL RBC 3.73 L (3.80-5.40) m/uL Hgb 10.9 L (11.4-16.0) gm/dL Hct 33.6 L (34.0-46.0) % RDW 15.7 H (11.5-15.5) % Neutrophils # 0.8 L (1.3-7.7) k/uL Neutrophils # (Manual) (1.3-7.7) k/uL Lymphocytes # 0.3 L (1.0-4.8) k/uL Chloride (98-107) mmol/L Glucose (74-99) mg/dL POC Glucose (mg/dL) 169 H (75-99) mg/dL Total Protein (6.3-8.2) g/dL Urine Appearance Cloudy H (Clear) Urine Protein 1+ H (Negative) Urine Glucose (UA) 3+ H (Negative) Urine Ketones 1+ H (Negative) Ur Leukocyte Esterase Moderate H (Negative) Urine RBC 13 H (0-5) /hpf Urine WBC 38 H (0-5) /hpf Ur Squamous Epith Cells 5 H (0-4) /hpf Urine Mucus Moderate H (None) /hpf 07/04/19 07/04/19 Range/Units 07:37 11:16 WBC (3.8-10.6) k/uL RBC (3.80-5.40) m/uL Hgb (11.4-16.0) gm/dL Hct (34.0-46.0) % RDW (11.5-15.5) % Neutrophils # (1.3-7.7) k/uL Neutrophils # (Manual) (1.3-7.7) k/uL Lymphocytes # (1.0-4.8) k/uL Chloride 108 H (98-107) mmol/L Glucose 164 H (74-99) mg/dL POC Glucose (mg/dL) 146 H (75-99) mg/dL Total Protein 6.1 L (6.3-8.2) g/dL Urine Appearance (Clear) Urine Protein (Negative) Urine Glucose (UA) (Negative) Urine Ketones (Negative) Ur Leukocyte Esterase (Negative) Urine RBC (0-5) /hpf Urine WBC (0-5) /hpf Ur Squamous Epith Cells (0-4) /hpf Urine Mucus (None) /hpf Chest x-ray: report reviewed Assessment and Plan (1) Bicytopenia Narrative/Plan: Suspect r/t to Hx of treatment for lymphoma in the setting of acute infection. No need for transfusion, added GCSF for low WBC/ANC. CBC daily. Hx lymphoma-Ig levels ordered Current Visit: Yes Status: Acute Priority: Medium Code(s): D75.89 - OTHER SPECIFIED DISEASES OF BLOOD AND BLOOD-FORMING ORGANS SNOMED Code(s): 80115196 (2) Diffuse large B-cell lymphoma of extranodal site Narrative/Plan: Pt had scan just last week-ALEJANDRA. She will continue on f/u as directed by Dr. Peralta Current Visit: No Status: Chronic Priority: Low Code(s): C83.39 - DIFFUSE LARGE B-CELL LYMPHOMA, EXTRNOD AND SOLID ORGAN SITES SNOMED Code(s): 763021873
--- NOTE | 2019-07-04 20:22 | P.CON ---
Consult Note - . Consult date: 07/04/19 Assessment/Plan:: Ms. Ochoa is a very pleasant female pt of Dr. Peralta who presented with intermittent RLQ pain of about 4 months duration, crampy, intermittent, short duration, no associated nausea/vomiting, change in bowel habits or weight loss. Colonoscopy in February/2018 was normal. Pain persisted leading to poor prep colonoscopy then CT AP 05/20/18 which revealed diffuse thickening of the terminal ileum and cecum with numerous enlarged matted lymph nodes in RLQ measuring up to 1.8cm. 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 08/02 PET did not show any suspicious uptake in chest/abdomen/pelvis. Jul 2017 started DA-R-EPOCH regimen, 10/01/18, PET was negative for residual lymphoma, she completed 4 cycles of DA R-EPOCH on 10/17/18 which she tolerated well. Repeat PET scan on 12/24/18 revealed no evidence of disease. She had CT last week with ALEJANDRA. She is admitted for , she is feeling much better today with treatment and abx. She denied any fever, vomiting, diarrhea or new pain. Please see the consult is dictated by nurse practitioner Mrs. Naima Grace. Patient presents with recurrent crampy abdominal pain with a bout of nausea and emesis. She's had extensive evaluations including a recent computed tomography scan with no evidence of disease from her prior non-Hodgkin's lymphoma for which she has completed her chemotherapy and has done well. At this time her symptomatology has improved. She is not having any urinary symptoms. She is not having fevers. She does have some chronic pyuria and chronic bacteriuria however they are asymptomatic. As long as the patient has no fever or other acute changes this would not require any specific treatment would prefer to avoid antibiotic therapy if possible. She has some chronic mild leukopenia after her therapy treatment of her diffuse large B-cell lymphoma. She is followed closely by oncology outpatient setting likely be discharged home today not requiring ongoing antibiotic therapy.
[2019-07-05 11:46] LABS: Immunoglobulin A 78.2 mg/dL (60.0-350.0); Immunoglobulin M 23.1 mg/dL (40.0-280.0)
--- NOTE | 2019-07-17 09:53 | DS ---
DISCHARGE SUMMARY DATE OF ADMISSION: 07/03/2019. DATE OF DISCHARGE: 07/04/2019. DISCHARGE MEDICATIONS: 1. Zocor 80 q.h.s. 2. Accolate 20 b.i.d. 3. Vitamin D 50,000 units once a week. 4. Synthroid 150 mcg daily,. 5. Amaryl 1 mg a.c. breakfast. 6. Requip 1 mg q.h.s. 7. Meclizine 25 mg t.i.d. 8. [place] 10 q.4 hours. 9. Zestril 5 mg daily. 10.Advair 250/50 one puff b.i.d. 11.Multivitamin daily. 12.Duo-Neb q.i.d. 13.Protonix 40 mg a.c. b.i.d. CONDITION: Stable. PROGNOSIS: Guarded. Ambulate as tolerated. This is a white female came into the hospital with right lower quadrant abdominal pain, crampy intermittent nausea, vomiting, weight loss, She was seen and cleared by Oncology. The leukopenia was treated, bicytopenia was treated, history of lymphoma in the setting of acute infection. No transfusion was given. PET scan showed no active disease. Her electrolytes and improved over the next 2-1 day, at which time she was discharged home to follow up as an outpatient. MMBRIANL / ELOISAN: [id number] /
== END 2019-07-04 18:20 | disposition home or self-care (01) ==
LOC: INTOOBSV 12:47 → 3NMEDONC 12:47
PROVIDERS: ADMIT Family Medicine; ATTEND Family Medicine
DX: J44.1 Chronic obstructive pulmonary disease with (acute) exacerbation (principal); N39.0 Urinary tract infection, site not specified; D72.819 Decreased white blood cell count, unspecified; I25.10 Atherosclerotic heart disease of native coronary artery without angina pectoris; E11.9 Type 2 diabetes mellitus without complications; H66.92 Otitis media, unspecified, left ear; H91.93 Unspecified hearing loss, bilateral; I11.9 Hypertensive heart disease without heart failure; M19.90 Unspecified osteoarthritis, unspecified site; G47.30 Sleep apnea, unspecified; E03.9 Hypothyroidism, unspecified; L30.9 Dermatitis, unspecified; I25.9 Chronic ischemic heart disease, unspecified; G89.29 Other chronic pain; M54.5 Low back pain; M54.2 Cervicalgia; M25.561 Pain in right knee; M25.551 Pain in right hip; R20.0 Anesthesia of skin; R20.2 Paresthesia of skin; G25.81 Restless legs syndrome; K76.0 Fatty (change of) liver, not elsewhere classified; N20.0 Calculus of kidney; I83.90 Asymptomatic varicose veins of unspecified lower extremity; E66.01 Morbid (severe) obesity due to excess calories; Z68.42 Body mass index [BMI] 45.0-49.9, adult; Z85.72 Personal history of non-Hodgkin lymphomas; Z92.21 Personal history of antineoplastic chemotherapy; Z91.048 Other nonmedicinal substance allergy status; Z90.49 Acquired absence of other specified parts of digestive tract; Z95.1 Presence of aortocoronary bypass graft; Z98.890 Other specified postprocedural states; Z98.51 Tubal ligation status; Z79.899 Other long term (current) drug therapy; Z79.890 Hormone replacement therapy; Z79.891 Long term (current) use of opiate analgesic; Z79.84 Long term (current) use of oral hypoglycemic drugs; Z79.82 Long term (current) use of aspirin; Z79.51 Long term (current) use of inhaled steroids; Z87.891 Personal history of nicotine dependence; Z88.1 Allergy status to other antibiotic agents; Z88.6 Allergy status to analgesic agent; Z99.89 Dependence on other enabling machines and devices; Z87.81 Personal history of (healed) traumatic fracture; Z86.010 Personal history of colon polyps; Z87.898 Personal history of other specified conditions; Z80.1 Family history of malignant neoplasm of trachea, bronchus and lung
CPT/HCPCS: 96376; 96372; 96374; 94640 ×4; 85379; 83880; 80053 ×2; 85025 ×2; 81001; 82784 ×3; 87086; 87077; 87186; 83036; 71046; G0378; J2920 ×2; Q5101; 96367

== ENCOUNTER 2019-07-21 12:48 | Observation (INO) | payer MEDICARE, OTHER ==
[2019-07-21 17:04] LABS: Glucose,Whole Blood 80 mg/dL (75-99)
[2019-07-21] MEDS ORDERED: IPRATROPIUM-ALBUTEROL 3 ML NEB INHALATION PRN (17:38)
[2019-07-21] MEDS ORDERED: MECLIZINE 25 MG TAB PO PRN (17:38)
[2019-07-21] MEDS ORDERED: PANTOPRAZOLE 40 MG TABLET PO PRN (17:38)
[2019-07-21] MEDS ORDERED: SODIUM CHLORIDE 0.9% 1,000 ML IV SCH (17:45)
[2019-07-21] MEDS ORDERED: CYANOCOBALAMIN 500 MCG TAB PO SCH (17:45)
[2019-07-21] MEDS: methylPREDNISolone SOD SUCCI 40 MG/ML 1 ML VIAL IV SCH (17:55)
[2019-07-21] MEDS: HYDROcodone/APAP 10-325MG 1 EACH TAB PO PRN ×2 (17:55→21:21)
[2019-07-21 18:12] LABS: Anisocytosis Slight; HCT 34.5 % (34.0-46.0); HGB 10.9 gm/dL (11.4-16.0); Hypochromasia Slight; MCH 29.4 pg (25.0-35.0); MCHC 31.8 g/dL (31.0-37.0); MCV 92.4 fL (80.0-100.0); Mean Platelet Volume 7.4; Platelet Count 296 k/uL (150-450); RBC 3.73 m/uL (3.80-5.40); RDW 17.3 % (11.5-15.5); WBC 4.3 k/uL (3.8-10.6)
[2019-07-21 18:27] LABS: African American GFR (CKD) >90 (>60 ml/min/1.73 sqM); Anion Gap 6 mmol/L; Blood Urea Nitrogen 12 mg/dL (7-17); Calcium 10.1 mg/dL (8.4-10.2); Carbon Dioxide 25 mmol/L (22-30); Chloride 111 mmol/L (98-107); Glucose 196 mg/dL (74-99); Non-African American GFR(CKD) >90 (>60 ml/min/1.73 sqM); Potassium 3.8 mmol/L (3.5-5.1); Sodium 142 mmol/L (137-145)
[2019-07-21 18:48] VITALS: RESP 18
[2019-07-21] MEDS: SYMBICORT 80-4.5 MCG INHALER INHALATION SCH (19:52)
--- NOTE | 2019-07-21 19:56 | XR ---
EXAMINATION TYPE: XR chest 1V DATE OF EXAM: 07/21/2019 COMPARISON: 07/03/2019 HISTORY: Short of breath TECHNIQUE: Single frontal view of the chest is obtained. FINDINGS: There is no heart failure nor confluent pneumonic infiltrate. There are sternal wires. The re is right shoulder prosthesis. Costophrenic angles are clear. IMPRESSION: No active cardiopulmonary disease. No change.
[2019-07-21 19:57] LABS: Glucose,Whole Blood 100 mg/dL (75-99)
[2019-07-21] MEDS ORDERED: MONTELUKAST 10 MG TAB PO SCH (21:00)
[2019-07-21] MEDS ORDERED: LEVOFLOXACIN 500MG-D5W PMX 500 MG in DEXTROSE/WATER 1 100ML.BAG IVPB SCH (21:00)
[2019-07-21] MEDS ORDERED: ATORVASTATIN 40 MG TAB PO SCH (21:00)
--- NOTE | 2019-07-21 21:26 | CT ---
EXAMINATION TYPE: CT chest angio for PE DATE OF EXAM: 07/21/2019 COMPARISON: None HISTORY: Elevated D-dimer. CT DLP: 665.2 mGycm Automated exposure control for dose reduction was used. CONTRAST: Performed with IV Contrast, patient injected with 100ml mL of Isovue 370. There are 3-D post processed images. There is previous surgery on the stomach with apparent multiple surgical clips at the lesser curvatur e. Spleen is intact. There is no sign of pancreatic mass. Liver shows no focal defect. Bile ducts are not dilated. The lungs are clear of infiltrate. There is no pleural effusion. There is no evidence of a pulmonary mass. There is no pericardial effusion. There is no mediastinal adenopathy. There are no hilar masses . There is normal contrast opacification of the pulmonary arteries. There are no filling defects. Bon y thorax appears intact. There is previous cardiac surgery with sternal wires. There is no evidence o f thoracic aortic aneurysm or dissection. IMPRESSION: No evidence of pulmonary embolism. Negative exam.
[2019-07-21 21:30] LABS: Appearance,Urine Turbid (Clear); Bacteria,Urine Occasional /hpf; Bilirubin,Urine Negative (Negative); Blood,Urine Small (Negative); Budding Yeast,Urine Few /hpf; Color,Urine Yellow; Glucose,Urine (UA) Negative (Negative); Ketones,Urine Negative (Negative); Leukocyte Esterase,Urine Large (Negative); Mucus,Urine Moderate /hpf; Nitrite,Urine Positive (Negative); PH, Urine 5.5 (5.0-8.0); Protein,Urine 1+ (Negative); RBC,Urine 20 /hpf (0-5); Specific Gravity,Urine 1.025 (1.001-1.035); Squamous Epithelial Cell,Urine 7 /hpf (0-4); Urobilinogen,Urine <2.0 mg/dL (<2.0); WBC,Urine >182 /hpf (0-5)
[2019-07-22] MEDS: methylPREDNISolone SOD SUCCI 40 MG/ML 1 ML VIAL IV SCH ×2 (00:04→08:54)
[2019-07-22] MEDS: HYDROcodone/APAP 10-325MG 1 EACH TAB PO PRN ×2 (04:26→08:59)
[2019-07-22] MEDS ORDERED: LEVOTHYROXINE 75 MCG TAB PO SCH (06:30)
[2019-07-22 06:43] LABS: Glucose,Whole Blood 174 mg/dL (75-99)
[2019-07-22] MEDS ORDERED: GLIMEPIRIDE 1 MG TAB PO SCH (07:30)
[2019-07-22 08:09] VITALS: BP 146/78; PULSE 70; TEMP 97.4
[2019-07-22] MEDS: SYMBICORT 80-4.5 MCG INHALER INHALATION SCH (08:46)
[2019-07-22] MEDS ORDERED: LISINOPRIL 5 MG TAB PO SCH (09:00)
[2019-07-22 11:51] LABS: Glucose,Whole Blood 138 mg/dL (75-99)
--- NOTE | 2019-07-22 13:23 | HP ---
HISTORY AND PHYSICAL 69-year-old white female came in with weakness, fatigue, dizziness and unsteadiness, unable to ambulate with some fever chills and left lower quadrant pain and dysuria, frequency and difficulty breathing. She came to the hospital. She was found to have elevated D-dimer. CT scan of the chest was ordered which was negative for PE. She was also found to have over 162 white cells in her urine, started on Levaquin for urosepsis and dehydration. PAST MEDICAL HISTORY: B-cell lymphoma, recently treated with chemo and radiation and which is in remission at this point. She has a history of diabetes mellitus, dyslipidemia, COPD, vertigo, restless legs syndrome, obstructive sleep apnea lumbar disc disease, osteoarthritis, morbid obesity. HOME MEDICATIONS: Include Requip 1 mg at night, Zocor 80 daily, Protonix 40 b.i.d., multivitamin daily, Antivert 25 t.i.d., [place] 10 q.4h p.r.n., vitamin D 50,000 units once a week, Accolate 20 b.i.d., Zestril 5 mg daily, Synthroid 150 mcg daily, DuoNeb q.i.d., Advair 250/50 one puff b.i.d., aspirin 81 mg daily. REVIEW OF SYSTEMS: 14-point review of systems as mentioned above. PHYSICAL EXAMINATION: Temp 97.4, respiratory 18-20, she was 92-94 percent on room air. Lungs scattered wheeze x4. Scattered rhonchi. She has had bad cough at home, severe cough. HEENT: She is alert, oriented x3. She looks weak, fatigued, poor skin turgor. On integument exam, no rashes. Endocrine: BMI is over 40. Ophthalmologic: She wears glasses. No scleral icterus. Hematology is 2 to 3+ edema. Abdomen is distended due to obesity. No mass. Normal bowel sounds. ASSESSMENT: 1. Chronic obstructive pulmonary disease exacerbation. 2. Tracheobronchitis. 3. Rule out pneumonia. 4. Urinary tract infection. 5. Urosepsis. 6. Dehydration. 7. Metabolic encephalopathy secondary to severe urinary tract infection and tracheobronchitis. IV steroids, IV fluids, IV antibiotics. Overnight we will follow her along. MMODL / IJN: [id number] /
[2019-07-24] MEDS ORDERED: ERGOCALCIFEROL 50,000 UNIT CAP PO SCH (09:00)
--- NOTE | 2019-08-08 21:02 | DS ---
DISCHARGE SUMMARY DATE OF ADMISSION: 07/21/2019 DATE OF DISCHARGE: 07/22/2019 DISCHARGE MEDICATIONS: 1. Zocor 80 daily. 2. Accolate 20 b.i.d. 3. Vitamin D 50,000 units once a week. 4. Synthroid 150 mcg daily. 5. Amaryl 1 mg daily. 6. Requip 1 mg at bedtime. 7. Antivert 25 t.i.d. 8. Vitamin B12 1000 mcg daily. 9. [place] 10/325 every 4 hours. 10.Zestril 5 mg daily. 11.Advair 250/50 one puff b.i.d. 12.Multivitamins daily. 13.Aspirin 81 mg daily. 14.Protonix 40 mg b.i.d. 15.DuoNeb q.i.d. CONDITION: Stable. PROGNOSIS: Guarded. Ambulate as tolerated. DISCHARGE DIAGNOSES: She came in with urosepsis, UTI, dehydration, history of beta-cell lymphoma, COPD, restless legs syndrome, obstructive sleep apnea, lumbar disc disease, osteoarthritis, morbid obesity. The patient improved over the first 24 to 48 hours of being admitted after rehydration with antibiotics. She was sent home in stable condition after CT scan of the chest was negative for PE or any mass. She will follow up as an outpatient. Beta-cell lymphoma appears to be in remission. MMODL / IJN: [id number] /
== END 2019-07-22 13:00 | disposition home or self-care (01) ==
LOC: 1SOBS 14:25
PROVIDERS: ADMIT Family Medicine; ATTEND Family Medicine
DX: N39.0 Urinary tract infection, site not specified (principal); E86.0 Dehydration; J44.0 Chronic obstructive pulmonary disease with (acute) lower respiratory infection; J44.1 Chronic obstructive pulmonary disease with (acute) exacerbation; G93.41 Metabolic encephalopathy; J40 Bronchitis, not specified as acute or chronic; C85.10 Unspecified B-cell lymphoma, unspecified site; E11.9 Type 2 diabetes mellitus without complications; E66.01 Morbid (severe) obesity due to excess calories; E78.5 Hyperlipidemia, unspecified; G25.81 Restless legs syndrome; G47.33 Obstructive sleep apnea (adult) (pediatric); M19.90 Unspecified osteoarthritis, unspecified site; M51.9 Unspecified thoracic, thoracolumbar and lumbosacral intervertebral disc disorder; Z79.82 Long term (current) use of aspirin; Z79.890 Hormone replacement therapy; Z79.899 Other long term (current) drug therapy; Z92.21 Personal history of antineoplastic chemotherapy; Z92.3 Personal history of irradiation
CPT/HCPCS: 93005; 96365; 96375; 96376; 94660 ×2; 94640 ×2; 85379; 83880; 80048; 83605; 85027; 81001; 87086; 87077; 87186; 71045; 71275; G0378 ×2; G0379; J2920 ×2; J1956; Q9967

== ENCOUNTER → 2019-07-26 | Day surgery (SDC) | payer MEDICARE, OTHER ==
[2019-07-12 12:57] VITALS: BMI 45.3
[~2019-07-26] MED LIST changes: -DEXAMETHASONE SOD PHOSPHATE 10 MG/ML 1 ML VIAL IV ONE; -HEPARIN SODIUM,PORCINE 5,000 UNIT/ML 1 ML VIAL SQ ONE; -HYDROmorphone 0.5 MG/0.5 ML SYRINGE IVP PRN; +LIDOCAINE 1% 20 ML VIAL (10MG/ML) FOR IV START INTRADERMA PRN; +LIDOCAINE 1% INJ 10MG/ML (20 ML MDV) ONE; -MIDAZOLAM 2 MG/2 ML VIAL IV PRN; -ONDANSETRON 4 MG/2 ML VIAL IVP ONE; +PROPOFOL 10 MG/ML 20 ML VIAL IV ONE; -ceFAZolin IN SWFI 2 GM/20 ML SYRINGE IVP ONE
[2019-07-26 07:34] VITALS: TEMP 97.7
[2019-07-26 07:36] LABS: Glucose,Whole Blood 99 mg/dL (75-99)
--- NOTE | 2019-07-26 07:55 | P.GSHP ---
History of Present Illness H&P Date: 07/26/19 Chief Complaint: Anemia This a 69-year-old female who presents today for EGD colonoscopy. Patient developed iron deficient anemia. The patient states that she's had some minimal GI bleed from hemorrhoids. Past Medical History Past Medical History: Asthma, Coronary Artery Disease (CAD), Cancer, Diabetes Mellitus, Hearing Disorder / Deafness, Hyperlipidemia, Hypertension, Musculoskeletal Disorder, Osteoarthritis (OA), Skin Disorder, Sleep Apnea/CPAP/BIPAP, Thyroid Disorder Additional Past Medical History / Comment(s): Non-Hodgins Lymphoma-Just finished chemo November 2018/episodes of bradycardia during chemo, colectomy d/t mass, ischemic heart disease, NIDDM, deaf/chronic otitis media L ear, [place] R ear, chronic low back/neck pain, R outer knee/hip and groin pain, vertigo, L hand numbness tingling which she attributes to past L wrist fracture with surgery, RLS, varicosities, possible IBS/colitis and chron's per pt in the past, benign colon polyps, uses C-PAP, hypothyroid, sinus allergies, eczema. OB V-07/03-07/04/19 COPD, RECENT INFUSION FOR IRON DEFICIENCY ANEMIA, ON ANTIOBIOTICS FOR RECENT UTI 07/21/19 History of Any Multi-Drug Resistant Organisms: None Reported Past Surgical History: Appendectomy, Bariatric Surgery, Bowel Resection, Cholecystectomy, Coronary Bypass/CABG, Heart Catheterization, Hernia Repair, Joint Replacement, Orthopedic Surgery, Tubal Ligation Additional Past Surgical History / Comment(s): 09/29/18 removal R ear ventilation tube, R tympanomastiodectomy, CABG x1 vessel (1992), bilateral shoulder surgery/ rt shoulder rotator cuff, bilateral carpal tunnel releases, L wrist surgery d/t injury, total L knee, lap banding, gastric bypass and then lap band removal, colonoscopy/benign polypectomy, R colectomy d/t mass, umbilical hernia repair Past Anesthesia/Blood Transfusion Reactions: Motion Sickness Additional Past Anesthesia/Blood Transfusion Reaction / Comment(s): VERTIGO Smoking Status: Former smoker - Past Family History Mother Additional Family Medical History / Comment(s): Pt states her mother never went to the doctor so she does not know of any medical problems. Mother lived to be 87yrs old. Father Additional Family Medical History / Comment(s): Father at the age of 67yrs, pt does not know cause of . Sister(s) Family Medical History: Cancer Additional Family Medical History / Comment(s): LUNG CA Medications and Allergies Home Medications Medication Instructions Recorded Confirmed Type Simvastatin [Zocor] 80 mg PO HS 03/21/14 07/26/19 History Zafirlukast [Accolate] 20 mg PO BID 03/21/14 07/26/19 History Ergocalciferol [Vitamin D2 50,000 unit PO MO 10/09/14 07/26/19 History (DRISDOL)] Levothyroxine Sodium [Synthroid] 150 mcg PO DAILY 10/09/14 07/26/19 History Glimepiride [Amaryl] 1 mg PO AC-BRKFST 10/08/15 07/26/19 History rOPINIRole HCL [Requip] 1 mg PO HS 08/04/17 07/26/19 History Meclizine [Antivert] 25 mg PO TID PRN #14 tab 08/07/18 07/26/19 Rx Cyanocobalamin (Vitamin B-12) 1,000 mcg PO MOWEFR 08/22/18 07/26/19 History [Vitamin B-12] HYDROcodone/APAP 10-325MG [[place] 1 tab PO Q4H PRN 08/22/18 07/26/19 History 10-325] Lisinopril [Zestril] 5 mg PO DAILY 08/22/18 07/26/19 History Fluticasone/Salmeterol [Advair 1 puff INHALATION RT-BID 09/12/18 07/26/19 History 250-50 Diskus] Aspirin EC [Ecotrin Low Dose] 81 mg PO DIRECTED 07/03/19 07/26/19 History Ipratropium-Albuterol Nebulize 3 ml INHALATION RT-QID PRN 07/03/19 07/26/19 History [Duoneb 0.5 mg-3 mg/3 ml Soln] Multivitamins, Thera [Multivitamin 1 tab PO DIRECTED 07/03/19 07/26/19 History (formulary)] Pantoprazole [Protonix] 40 mg PO AC-BID PRN 07/03/19 07/26/19 History Levofloxacin [Levaquin] 500 mg PO DAILY 07/25/19 07/26/19 History Promethazine HCl/Codeine 5 ml PO Q6H PRN 07/25/19 07/26/19 History [Promethazine-Codeine Syrup] Allergies Allergy/AdvReac Type Severity Reaction Status Date / Time allopurinol Allergy Itching Verified 07/25/19 08:34 cephalexin monohydrate Allergy Itching Verified 07/25/19 08:34 [From Keflex] clindamycin Allergy Itching Verified 07/25/19 08:34 NSAIDS (Non-Steroidal AdvReac Unknown STATES NO Verified 07/25/19 08:34 Anti-Inflamma NSAIDS DUE TO GASTRIC BYPASS ciprofloxacin [From Cipro] AdvReac severe Verified 07/25/19 08:34 heartburn doxycycline AdvReac severe Verified 07/25/19 08:34 heartburn Surgical - Exam Vital Signs Temp Pulse Resp BP Pulse Ox 97.7 F 89 20 139/51 96 07/26/19 07:25 07/26/19 07:25 07/26/19 07:25 07/26/19 07:25 07/26/19 07:25 - General well developed, well nourished, no distress - Eyes PERRL - ENT normal pinna - Neck no masses - Respiratory normal expansion - Cardiovascular Rhythm: regular - Abdomen Abdomen: soft, non tender Assessment and Plan Assessment: Anemia. We'll perform EGD and colonoscopy.
[2019-07-26 08:46] VITALS: BP 118/62; PULSE 59; RESP 18
--- NOTE | 2019-07-26 15:52 | FL ---
EXAMINATION TYPE: FL barium enema w air contrast DATE OF EXAM: 07/26/2019 CLINICAL HISTORY: Anemia TECHNIQUE: A single contrast barium enema study is performed. COMPARISON: None. FINDINGS: Beam Warper view of the abdomen shows overall non-obstructive bowel gas pattern. Changes of righ t hemicolectomy. Anastomotic site appears patent and free of oblique or mass lesion. Severe diverticu losis of the sigmoid colon without diverticulitis. No evidence of any mass or polyp, obstructing or c onstricting lesion throughout the colon. IMPRESSION: 1. Postoperative changes as noted with normal appearing anastomotic site. 2. Severe diverticulosis without diverticulitis of the sigmoid colon.
--- NOTE | 2019-07-31 17:46 | P.OP ---
Date of Procedure: 07/26/19 Preoperative Diagnosis: GI bleed Postoperative Diagnosis: Esophagitis Diverticulosis No evidence of GI bleed Anesthesia: MAC Pathology: none sent Condition: stable Disposition: PACU Description of Procedure: The patient's placed on the endoscopy table lateral position. She received IV sedation. The gastroscope placed oropharynx passed in the esophagus and stomach. The patient appears gastric bypass. The proximal gastric pouch was examined. There is no evidence of inflammation. The gastrojejunostomy was patent. There is no evidence of inflammation. Scope was withdrawn the remainder of the stomach and esophagus appeared normal. Scope was withdrawn for patient. Next digital rectal exam is performed which revealed a few external hemorrhoids. The flexible colonoscope was then placed patient anus and passed throughout the colon. The colonoscope was then placed the cecum segment tortuous of the bowel. Scope was withdrawn. The ascending colon, transverse colon appeared normal. In the descending; was moderate diverticular changes. Scope summer back the rectum this appeared normal. Scope withdrawn for patient.
== END | disposition home or self-care (01) ==
LOC: ORWHC2ENDO 06:52
PROVIDERS: ATTEND Surgery
DX: K20.9 Esophagitis, unspecified (principal); K64.4 Residual hemorrhoidal skin tags; Q43.8 Other specified congenital malformations of intestine; K57.30 Diverticulosis of large intestine without perforation or abscess without bleeding; D50.9 Iron deficiency anemia, unspecified; I25.10 Atherosclerotic heart disease of native coronary artery without angina pectoris; E11.9 Type 2 diabetes mellitus without complications; H91.91 Unspecified hearing loss, right ear; E78.5 Hyperlipidemia, unspecified; I10 Essential (primary) hypertension; M19.90 Unspecified osteoarthritis, unspecified site; G47.33 Obstructive sleep apnea (adult) (pediatric); I25.9 Chronic ischemic heart disease, unspecified; H66.92 Otitis media, unspecified, left ear; G89.29 Other chronic pain; M54.5 Low back pain; M54.2 Cervicalgia; M25.561 Pain in right knee; M25.551 Pain in right hip; R10.31 Right lower quadrant pain; R20.2 Paresthesia of skin; R20.0 Anesthesia of skin; G25.81 Restless legs syndrome; I83.90 Asymptomatic varicose veins of unspecified lower extremity; E03.9 Hypothyroidism, unspecified; L30.9 Dermatitis, unspecified; J44.9 Chronic obstructive pulmonary disease, unspecified; N39.0 Urinary tract infection, site not specified; K58.9 Irritable bowel syndrome, unspecified; K50.90 Crohn's disease, unspecified, without complications; K08.109 Complete loss of teeth, unspecified cause, unspecified class; Z85.72 Personal history of non-Hodgkin lymphomas; Z92.21 Personal history of antineoplastic chemotherapy; Z87.39 Personal history of other diseases of the musculoskeletal system and connective tissue; Z90.49 Acquired absence of other specified parts of digestive tract; Z87.81 Personal history of (healed) traumatic fracture; Z98.890 Other specified postprocedural states; Z86.010 Personal history of colon polyps; Z99.89 Dependence on other enabling machines and devices; Z95.1 Presence of aortocoronary bypass graft; Z96.652 Presence of left artificial knee joint; Z98.51 Tubal ligation status; Z87.891 Personal history of nicotine dependence; Z87.898 Personal history of other specified conditions; Z79.899 Other long term (current) drug therapy; Z79.890 Hormone replacement therapy; Z79.84 Long term (current) use of oral hypoglycemic drugs; Z79.51 Long term (current) use of inhaled steroids; Z79.82 Long term (current) use of aspirin; Z79.891 Long term (current) use of opiate analgesic; Z88.8 Allergy status to other drugs, medicaments and biological substances; Z88.1 Allergy status to other antibiotic agents; Z88.6 Allergy status to analgesic agent; Z80.1 Family history of malignant neoplasm of trachea, bronchus and lung
CPT/HCPCS: 88305; 74280; 45378; 43239; J2001; J2704

== ENCOUNTER → 2019-08-18 | Outpatient (CLI) | payer MEDICARE, OTHER ==
[2019-08-18 14:35] LABS: Anisocytosis Slight; Basophils % (A) 0 %; Eosinophils # (A) 0.1 k/uL (0-0.7); Eosinophils % (A) 1 %; HCT 40.3 % (34.0-46.0); HGB 12.7 gm/dL (11.4-16.0); Lymphocytes # (A) 1.4 k/uL (1.0-4.8); Lymphocytes % (A) 22 %; MCH 30.1 pg (25.0-35.0); MCHC 31.6 g/dL (31.0-37.0); MCV 95.2 fL (80.0-100.0); Mean Platelet Volume 7.1; Monocytes # (A) 0.4 k/uL (0-1.0); Monocytes % (A) 6 %; Neutrophils # (A) 4.5 k/uL (1.3-7.7); Neutrophils % (A) 70 %; Platelet Count 230 k/uL (150-450); RBC 4.23 m/uL (3.80-5.40); RDW 17.9 % (11.5-15.5); WBC 6.4 k/uL (3.8-10.6)
[2019-08-18 14:43] LABS: Potassium 4.6 mmol/L (3.5-5.1)
[2019-08-18 14:57] LABS: INR 0.9 (<1.2); Prothrombin Time 9.7 sec (9.0-12.0)
== END | disposition home or self-care (01) ==
LOC: LABPAT 13:41
PROVIDERS: ATTEND Orthopaedic Surgery
DX: Z01.812 Encounter for preprocedural laboratory examination (principal); M16.11 Unilateral primary osteoarthritis, right hip; Z51.81 Encounter for therapeutic drug level monitoring; R06.02 Shortness of breath
CPT/HCPCS: 36415; 80051; 85025; 85610; 86850; 86900; 86901; 87070

== ENCOUNTER 2019-09-11 09:21 | Inpatient (IN) | payer MEDICARE, OTHER ==
[2019-09-11] MEDS ORDERED: IPRATROPIUM-ALBUTEROL 3 ML NEB INHALATION PRN (12:16)
[2019-09-11] MEDS ORDERED: PHENYLEPHRINE HCL PO PRN (12:16)
[2019-09-11] MEDS ORDERED: PROMETH HCL PO PRN (12:16)
[2019-09-11] MEDS ORDERED: MECLIZINE 25 MG TAB PO PRN (12:16)
[2019-09-11] MEDS ORDERED: PANTOPRAZOLE 40 MG TABLET PO PRN (12:16)
[2019-09-11 12:23] LABS: Glucose,Whole Blood 122 mg/dL (75-99)
[2019-09-11] MEDS ORDERED: PANTOPRAZOLE 40 MG/10 ML VIAL IVP SCH (12:30)
[2019-09-11] MEDS ORDERED: ERGOCALCIFEROL 50,000 UNIT CAP PO SCH (12:30)
[2019-09-11] MEDS: INSULIN ASPART (NovoLOG) 100 UNIT/ML VIAL SQ SCH ×3 (12:35→21:42)
[2019-09-11] MEDS: HYDROmorphone 0.5 MG/0.5 ML SYRINGE IVP PRN ×3 (12:42→22:08)
[2019-09-11] MEDS: CARVEDILOL 3.125 MG TAB PO SCH ×2 (12:48→17:09)
[2019-09-11] MEDS: CYANOCOBALAMIN 500 MCG TAB PO SCH (12:48)
[2019-09-11] MEDS: CALCIUM CARBONATE 500 MG CHEWABLE PO SCH ×2 (12:48→21:42)
[2019-09-11] MEDS: LEVOTHYROXINE 75 MCG TAB PO SCH ×2 (12:49→23:14)
[2019-09-11] MEDS: MULTIVITAMINS, THERA 1 EACH TAB PO SCH (12:49)
[2019-09-11] MEDS: GLIMEPIRIDE 1 MG TAB PO SCH (12:49)
[2019-09-11] MEDS: PANTOPRAZOLE 40 MG TABLET PO SCH (13:16)
--- NOTE | 2019-09-11 13:32 | CT ---
EXAMINATION TYPE: CT lumbar spine wo con DATE OF EXAM: 09/11/2019 1:02 PM COMPARISON: PET CT December 24, 2018. CT June 30, 2019. HISTORY: Intractable Lumbar Pain, history of lymphoma. CT DLP: 2053.4 mGycm Automated exposure control for dose reduction was used. Unenhanced CT of the lumbar spine was performed. Bone and soft tissue window settings are submitted as well as coronal and sagittal reconstructions. The exam is suboptimal due to patient's large body habitus. 5 lumbar type vertebra. Mild to moderate disc space narrowing and vacuum disc phenomenon L5-S1 level. [id number] multilevel spine most p rominent right aspect of the upper lumbar spine. No large disc herniation seen on sagittal images. Axial images at L2-L3 show mild broad disc bulge and facet arthropathy bilaterally. Moderate broad disc bulge with mild facet arthropathy L3-L4 level seen effacing the anterior thecal s ac. Moderate broad disc bulge and facet arthropathy L4-L5 level causes most prominent spinal canal stenos is axial image 59. Advanced facet arthropathy left greater than right L5-S1 level noted. Cortical thinning both kidneys. Nonobstructing 4 mm calculus lower pole left kidney. Mild to moderate calcified plaque of the aorta extends into branch vessels. Cholecystectomy changes. Surgical changes from gastric bypass epigastric region. Diverticula in the visualized portion of left and sigmoid col on. Metallic density or foreign body in the pelvis partially imaged on axial image 93. IMPRESSION: As above.
[2019-09-11 13:33] LABS: Anisocytosis Slight; Basophils # (A) 0.1 k/uL (0-0.2); Basophils % (A) 2 %; Eosinophils # (A) 0.1 k/uL (0-0.7); Eosinophils % (A) 1 %; HCT 41.1 % (34.0-46.0); Lymphocytes # (A) 0.8 k/uL (1.0-4.8); Lymphocytes % (A) 14 %; MCH 31.2 pg (25.0-35.0); MCHC 31.6 g/dL (31.0-37.0); MCV 98.8 fL (80.0-100.0); Macrocytosis Slight; Mean Platelet Volume 7.4; Monocytes # (A) 0.4 k/uL (0-1.0); Monocytes % (A) 7 %; Neutrophils # (A) 4.1 k/uL (1.3-7.7); Neutrophils % (A) 74 %; Platelet Count 270 k/uL (150-450); RBC 4.17 m/uL (3.80-5.40); RDW 17.2 % (11.5-15.5); WBC 5.5 k/uL (3.8-10.6)
[2019-09-11 13:50] LABS: African American GFR (CKD) >90 (>60 ml/min/1.73 sqM); Anion Gap 5 mmol/L; Blood Urea Nitrogen 12 mg/dL (7-17); Calcium 10.5 mg/dL (8.4-10.2); Carbon Dioxide 30 mmol/L (22-30); Chloride 106 mmol/L (98-107); Glucose 115 mg/dL (74-99); Non-African American GFR(CKD) 85 (>60 ml/min/1.73 sqM); Potassium 4.4 mmol/L (3.5-5.1); Sodium 141 mmol/L (137-145)
[2019-09-11] MEDS: HYDROcodone/APAP 10-325MG 1 EACH TAB PO PRN ×2 (14:44→20:02)
--- NOTE | 2019-09-11 15:49 | P.PAINCN ---
History of Present Illness - Reason for Consult Consult date: 09/11/19 - History of Present Illness This is a 69 years old female with a chronic history of low back pain, she was diagnosed with bilateral hip osteoarthritis and she is status post her hip replacement surgery , and a hip replacement surgery was scheduled to be done in August 2013, but the surgery was delayed because she had urinary tract infection, she reported that she had a chronic back pain problems and she was admitted to [facility], because of intractable low back pain with pain radiating to the right lower extremity, the pain is constant and increases with any movement, she feels some weakness in her right lower extremity she is currently on Jackson 10/325 every 4 hours and Dilaudid IV ,and she continues to have severe pain Past Medical History Past Medical History: Asthma, Coronary Artery Disease (CAD), Cancer, COPD, Diabetes Mellitus, Hearing Disorder / Deafness, Hyperlipidemia, Hypertension, Musculoskeletal Disorder, Osteoarthritis (OA), Skin Disorder, Sleep Apnea/CPAP/BIPAP, Thyroid Disorder Additional Past Medical History / Comment(s): Recent UTI just completed ABX, Non-Hodgins Lymphoma-finished chemo November 2018/episodes of bradycardia during chemo, colectomy d/t mass-pt states she wasn't told it was cancerous, ischemic heart disease, NIDDM, deaf/chronic otitis media L ear, [place] R ear, chronic low back/neck pain, R outer knee/hip and groin pain-is to have total R hip replacement, vertigo, L hand numbness tingling which she attributes to past L wrist fracture with surgery, RLS, varicosities, possible IBS/colitis and chron's per pt in the past, benign colon polyps, uses C-PAP, hypothyroid, sinus allergies, eczema, iron anemia with iron infusion, vertigo History of Any Multi-Drug Resistant Organisms: None Reported Past Surgical History: Appendectomy, Bariatric Surgery, Bowel Resection, Cholecystectomy, Coronary Bypass/CABG, Heart Catheterization, Hernia Repair, Joint Replacement, Orthopedic Surgery, Tubal Ligation Additional Past Surgical History / Comment(s): 09/29/18 removal R ear ventilation tube, R tympanomastiodectomy, CABG x1 vessel (1992), bilateral shoulder surgery/ rt shoulder rotator cuff, bilateral carpal tunnel releases, L wrist surgery d/t injury, total L knee, lap banding, gastric bypass and then lap band removal, colonoscopy/benign polypectomy, R colectomy d/t mass, EGD, umbilical hernia repair Past Anesthesia/Blood Transfusion Reactions: Motion Sickness Additional Past Anesthesia/Blood Transfusion Reaction / Comm: VERTIGO Smoking Status: Former smoker - Past Family History Mother Additional Family Medical History / Comment(s): Pt states her mother never went to the doctor so she does not know of any medical problems. Mother lived to be 87yrs old. Father Additional Family Medical History / Comment(s): Father at the age of 67yrs, pt does not know cause of . Sister(s) Family Medical History: Cancer Additional Family Medical History / Comment(s): LUNG CA Medications and Allergies Home Medications Medication Instructions Recorded Confirmed Type Simvastatin [Zocor] 80 mg PO HS 03/21/14 09/11/19 History Ergocalciferol [Vitamin D2 50,000 unit PO MO 10/09/14 09/11/19 History (DRISDOL)] Levothyroxine Sodium [Synthroid] 150 mcg PO DAILY 10/09/14 09/11/19 History Glimepiride [Amaryl] 1 mg PO AC-BRKFST 10/08/15 09/11/19 History rOPINIRole HCL [Requip] 1 mg PO HS 08/04/17 09/11/19 History Meclizine [Antivert] 25 mg PO TID PRN #14 tab 08/07/18 09/11/19 Rx Cyanocobalamin (Vitamin B-12) 1,000 mcg PO MOWEFR 08/22/18 09/11/19 History [Vitamin B-12] HYDROcodone/APAP 10-325MG [Jackson 1 tab PO Q4H PRN 08/22/18 09/11/19 History 10-325] Lisinopril [Zestril] 5 mg PO DAILY@1200 08/22/18 09/11/19 History Fluticasone/Salmeterol [Advair 1 puff INHALATION RT-BID 09/12/18 09/11/19 History 250-50 Diskus] Aspirin EC [Ecotrin Low Dose] 81 mg PO DAILY 07/03/19 09/11/19 History Ipratropium-Albuterol Nebulize 3 ml INHALATION RT-QID PRN 07/03/19 09/11/19 History [Duoneb 0.5 mg-3 mg/3 ml Soln] Multivitamins, Thera [Multivitamin 1 tab PO DAILY 07/03/19 09/11/19 History (formulary)] Pantoprazole [Protonix] 40 mg PO DAILY PRN 07/03/19 09/11/19 History Calcium Carbonate [Calcium] 600 mg PO BID 08/22/19 09/11/19 History Carvedilol [Coreg] 3.125 mg PO BID 08/22/19 09/11/19 History Zafirlukast 20 mg PO BID 08/22/19 09/11/19 History Levofloxacin [Levaquin] 500 mg PO DAILY 09/11/19 09/11/19 History Phenylephrine HCl/Prometh HCl 5 ml PO Q6H PRN 09/11/19 09/11/19 History [Promethazine Vc Syrup] Allergies Allergy/AdvReac Type Severity Reaction Status Date / Time allopurinol Allergy Itching Verified 09/11/19 11:51 cephalexin monohydrate Allergy Itching Verified 09/11/19 11:51 [From Keflex] clindamycin Allergy Itching Verified 09/11/19 11:51 NSAIDS (Non-Steroidal AdvReac Unknown STATES NO Verified 09/11/19 11:51 Anti-Inflamma NSAIDS DUE TO GASTRIC BYPASS ciprofloxacin [From Cipro] AdvReac severe Verified 09/11/19 11:51 heartburn doxycycline AdvReac severe Verified 09/11/19 11:51 heartburn Physical Exam Vitals: Vital Signs Temp Pulse Resp BP Pulse Ox 09/11/19 12:00 97.7 F 75 18 133/70 98 Intake and Output 09/11/19 09/11/19 09/11/19 06:59 14:59 22:59 Other: Voiding Method Toilet Weight 120.2 kg Physical Examinations : [place] : Cooperative , not in acute distress . HEENT : nech : supple , no Lymphadenopathy , normal thyroid size . : eyes no ptosis , no icterus, no photophobia . : ENT normal of hearing , normal oropharynx , no Thrush . Respiratory : Chest clear to auscultations Bilaterally , no wheezing , no Rhonchi . Cardiovascula : regular rate and rhythem , S1 , S2 , no S3 , no S4. Gastrointestina : abdomen soft no tenderness , bowel sounds , no organomegally . Genitourinary : Defferred . neurologic : Cranial nerve II to XII intact , no focal neurological deffecit . psychatric : alert , oriented X 3 , appropriate affect , intact judgment and insight . Lymphatic : no Lymphadenopathy . musculoskeltal : Lumber spine moter stegnth lower extremities ,thigh and legs 3-4/5 Right side , 5/5 Left side deep tendon reflexes : 2/4 Knee Jerk , 2/4 ankle Jerk lumber facet Loading Test= positive Right , positive Left Range of motion of the lumbar spine Flexion 30 degrees, extension 10 degrees strait leg raising test , positive at 30 degree on the right side, and is negative on the left side Fabere test= positive Right , and negative left . Sever tenderness over the Sacroiliac joint on the Right , Hip joint= flexion and extension and lateral movement of the right associated with severe pain Results CBC & Chem 7: 09/11/19 13:07 09/11/19 13:07 Labs: Abnormal Lab Results - Last 24 Hours (Table) 09/11/19 09/11/19 09/11/19 Range/Units 12:22 13:07 13:07 RDW 17.2 H (11.5-15.5) % Lymphocytes # 0.8 L (1.0-4.8) k/uL Glucose 115 H (74-99) mg/dL POC Glucose (mg/dL) 122 H (75-99) mg/dL Calcium 10.5 H (8.4-10.2) mg/dL Comments: Computed tomography scan of the lumbar spine= multilevel lumbar bulging disc disease and multilevel lumbar facet arthropathy Assessment and Plan Plan: Assessment and plan= lumbar radiculopathy. Lumbar degenerative disc disease. Lumbar spondylosis with lumbar facet arthropathy Osteoarthritis of the hip joint. Description could benefit from lumbar epidural steroid injection at L5-S1, to be done tomorrow morning Time with Patient: Greater than 30 PQRS Measure Charge Sheet PQRS Narrative: Smoking Status Former smoker Do You Want the Pneumonia Vaccine Up to Date Vaccine AT THIS TIME? Blood Pressure [Right Arm] 133/70 Pain Intensity [Right Hip] 10 Pain Intensity 10 Pain Scale Used Numeric (1 - 10) Scale Used Numeric (1 - 10) Hx Alcohol Use (MH) No Home Medications: Ambulatory Orders Simvastatin [Zocor] 80 mg PO HS 03/21/14 Ergocalciferol [Vitamin D2 (DRISDOL)] 50,000 unit PO MO 10/09/14 Levothyroxine Sodium [Synthroid] 150 mcg PO DAILY 10/09/14 Glimepiride [Amaryl] 1 mg PO AC-BRKFST 10/08/15 rOPINIRole HCL [Requip] 1 mg PO HS 08/04/17 Meclizine [Antivert] 25 mg PO TID PRN #14 tab 08/07/18 Cyanocobalamin (Vitamin B-12) [Vitamin B-12] 1,000 mcg PO MOWEFR 08/22/18 HYDROcodone/APAP 10-325MG [Jackson 10-325] 1 tab PO Q4H PRN 08/22/18 Lisinopril [Zestril] 5 mg PO DAILY@1200 08/22/18 Fluticasone/Salmeterol [Advair 250-50 Diskus] 1 puff INHALATION RT-BID 09/12/18 Aspirin EC [Ecotrin Low Dose] 81 mg PO DAILY 07/03/19 Ipratropium-Albuterol Nebulize [Duoneb 0.5 mg-3 mg/3 ml Soln] 3 ml INHALATION RT-QID PRN 07/03/19 Multivitamins, Thera [Multivitamin (formulary)] 1 tab PO DAILY 07/03/19 Pantoprazole [Protonix] 40 mg PO DAILY PRN 07/03/19 Calcium Carbonate [Calcium] 600 mg PO BID 08/22/19 Carvedilol [Coreg] 3.125 mg PO BID 08/22/19 Zafirlukast 20 mg PO BID 08/22/19 Levofloxacin [Levaquin] 500 mg PO DAILY 09/11/19 Phenylephrine HCl/Prometh HCl [Promethazine Vc Syrup] 5 ml PO Q6H PRN 09/11/19
[2019-09-11] MEDS: methylPREDNISolone SOD SUCCI 125 MG/2 ML VIAL IV SCH ×2 (16:34→23:11)
[2019-09-11 16:52] LABS: Glucose,Whole Blood 76 mg/dL (75-99)
[2019-09-11] MEDS: PROMETHAZINE 25 MG TAB PO PRN (17:09)
[2019-09-11 19:57] LABS: Glucose,Whole Blood 154 mg/dL (75-99)
[2019-09-11] MEDS: SYMBICORT 80-4.5 MCG INHALER INHALATION SCH (20:18)
[2019-09-11] MEDS: ATORVASTATIN 40 MG TAB PO SCH (21:41)
[2019-09-11] MEDS: MONTELUKAST 10 MG TAB PO SCH (21:41)
[2019-09-12] MEDS: HYDROcodone/APAP 10-325MG 1 EACH TAB PO PRN ×5 (01:39→23:40)
[2019-09-12] MEDS: HYDROmorphone 0.5 MG/0.5 ML SYRINGE IVP PRN ×4 (05:10→20:23)
[2019-09-12 06:38] LABS: Glucose,Whole Blood 188 mg/dL (75-99)
[2019-09-12] MEDS: SYMBICORT 80-4.5 MCG INHALER INHALATION SCH ×2 (07:22→21:30)
[2019-09-12] MEDS: INSULIN ASPART (NovoLOG) 100 UNIT/ML VIAL SQ SCH ×4 (07:31→20:24)
[2019-09-12] MEDS: methylPREDNISolone SOD SUCCI 125 MG/2 ML VIAL IV SCH ×3 (07:49→23:35)
[2019-09-12] MEDS: PANTOPRAZOLE 40 MG TABLET PO SCH (07:49)
[2019-09-12] MEDS: CARVEDILOL 3.125 MG TAB PO SCH ×2 (07:49→17:14)
[2019-09-12] MEDS: CALCIUM CARBONATE 500 MG CHEWABLE PO SCH ×2 (07:49→20:23)
[2019-09-12] MEDS: MULTIVITAMINS, THERA 1 EACH TAB PO SCH (07:49)
[2019-09-12 11:45] LABS: Glucose,Whole Blood 190 mg/dL (75-99)
[2019-09-12] MEDS ORDERED: IV FLUID CONTINUATION 1,000 ML IV ONE (11:46)
[2019-09-12] MEDS ORDERED: MIDAZOLAM 2 MG/2 ML VIAL ONE (11:47)
[2019-09-12] MEDS ORDERED: IOPAMIDOL M200 10 ML VIAL ONE (11:47)
[2019-09-12] MEDS ORDERED: TRIAMCINOLONE ACETONIDE 40 MG/ML 1 ML VIAL ONE (11:47)
[2019-09-12] MEDS ORDERED: fentaNYL (PF) 50 MCG/ML 2 ML AMP ONE (11:47)
[2019-09-12] MEDS ORDERED: methylPREDNISolone ACETATE 80 MG/ML 1 ML VIAL ONE (11:47)
--- NOTE | 2019-09-12 12:09 | P.PCN ---
Date of Procedure: 09/12/19 Procedure(s) Performed: PREOPERATIVE DIAGNOSIS: 1- Lumbar radiculopathy, Lumbar Degenerative Disc Diseases 2-Lumbar spondylosis with Facet arthropathy without myelopathy POSTOPERATIVE DIAGNOSIS: 1-Lumber Degenerative Disc Diseases 2-Lumbar spondylosis with Facet arthropathy without myelopathy PROCEDURE 1. Lumbar epidural steroid injection under fluoroscopic guidance at the L5-S1 level using a right paramedian approach 2. Lumbar epidurogram. ANESTHESIA: Local with 1% lidocaine 3 ml, moderate sedation with intravenous Versed and fentanyl, sedation time 6 minutes Fluoroscopy was used for the procedure and images were saved in the radiology portion of the chart. EBL: Minimal PROCEDURE INDICATION: The patient with low back pain and radiculitis symptoms unresponsive to conservative treatment. Fluoroscopy was used to optimize visualization of the needle placement and to maximize safety. PROCEDURE DESCRIPTION / TECHNIQUE: The patient was seen and identified in the preoperative area. Risks, benefits, complications including but not limited to infections ,bleeding ,allergic reaction to the medications ,nerve damage and incomplete pain releif , and alternatives were discussed with the patient. The patient agreed to proceed with the procedure and signed the consent. IV was started, and vital signs were stable. Patient was taken to the OR and time out was completed. The patient was placed in the prone position on procedure table and a pillow was placed under the abdomen to reduce lumbar lordosis. The lumbosacral area was prepped and draped in the usual sterile fashion. Vitals were closely monitored during the procedure. Conscious sedation was used during the procedure to decrease patients anxiety. Using anterior-posterior fluoroscopy, the L5-S1 interlaminar space was identified and the skin over this site was marked and then infiltrated with 1% lidocaine subcutaneously. Subsequently, a 20-gauge 3.5" Tuohy epidural needle was inserted and advanced toward the epidural space using the loss of resistance technique and guided by AP and lateral/ oblique fluoroscopy. The correct needle position in the epidural space was verified with the injection of 2 mL of the water soluble contrast dye Isovue 200 contrast under live fluoroscopy, observing an excellent epidurogram. Then, after negative aspiration for blood and CSF and in the absence of paresthesias, a 5 ml mixture containing 80 mg of Depo-medrol , 3 ml of preservative free Normal Saline, and 1 ml of preservative free lidocaine 1% solution was injected and a washout epidurogram was seen. Needle was withdrawn intact, skin was cleansed, and bandages were applied. COMPLICATIONS: None DISPOSITION / PLANS: The patient was placed in a supine position and transferred to the recovery area in a stable condition for observation. There was no evidence of lower extremity motor or sensory deficit after the procedure. Patient was discharged from the recovery room after meeting discharge criteria. Home discharge instructions were given to the patient by the staff. The patient will schedule a follow up in the clinic in 2-4 weeks.
[2019-09-12 12:20] LABS: Glucose,Whole Blood 187 mg/dL (75-99)
[2019-09-12] MEDS: LISINOPRIL 5 MG TAB PO SCH (12:35)
[2019-09-12] MEDS: GLIMEPIRIDE 1 MG TAB PO SCH (12:35)
[2019-09-12] MEDS: PROMETHAZINE 25 MG TAB PO PRN (12:35)
--- NOTE | 2019-09-12 12:43 | HP ---
HISTORY AND PHYSICAL A 69-year-old white female with inability to walk due to right pain and numbness down her right leg, shooting down her right leg, retractable back pain despite taking pain pills at home, high-dose narcotic. She cannot move her right leg. She is admitted with retractable back pain for lumbar epidural, history of beta cell lymphoma in remission. She is being admitted and consulted, IV steroids and consult with Pain Clinic for epidural shot. PAST MEDICAL HISTORY: Asthma, coronary artery disease, diabetes mellitus, hearing disorder, hypertension, osteoarthritis, sleep apnea, hypothyroidism, beta cell lymphoma in remission. SURGERIES: Appendectomy, bariatric surgery, bowel surgery, cholecystectomy, CABG surgery, heart catheterization, hernia repair, joint replacement, orthopedic surgery, tubal ligation, right ear ventilation tube tympanoplasty, CABG x1, bilateral shoulder surgery, left wrist surgery, total left knee, lap band and gastric bypass. FAMILY HISTORY: Mother negative. Father unsure . Sister had cancer of the lung. HOME MEDICATIONS: See list includes Zocor, vitamin D, Amaryl, Requip, Antivert, [place], Advair, Ecotrin, Zestril, DuoNeb, Protonix, multivitamin, Coreg, zafirlukast, Levaquin, and Phenergan. ALLERGIES: ALLOPURINOL, KEFLEX, CLINDAMYCIN, NSAIDS, CIPRO, DOXY. VITAL SIGNS: Temp 97.7, blood pressure 130s over 80s to 70s, respiratory 16-20, pulse 70s to 80s. PSYCH: Cooperative, no acute distress. HEENT: Normocephalic, atraumatic. LUNGS: Clear. HEART: Regular rate and rhythm. ABDOMEN: Soft, nontender. No mass or organomegaly. : No suprapubic tenderness. NEUROLOGIC: Cranial nerves are intact. PSYCH: Fair mood and affect. Lumbar spine shows 3/5 strength in the right side. 2/4 ankle reflexes and knee reflexes. Lumbar loading test positive bilaterally. Positive MINOR test on the right. SI joint tenderness right side. Hip pain, right with severe pain. White count is 5.5, hemogloblin is 13.0. CAT scan shows multilevel lumbar disc disease bulging and arthropathy. ASSESSMENT: 1. Acute irretractable pain syndrome, lumbar radiculopathy, acute on chronic on the right leg, osteoarthritis of the hip, lumbar spine epidural shot. Continue with IV steroids as far as her home medications. 2. Hypertension. 3. Dyslipidemia. 4. Chronic obstructive pulmonary disease. 5. Asthma. 6. Allergic asthma. 7. Beta cell lymphoma. Continue home medications. Follow up in the next 24-48 hours. MMODL / IJN: [id number] /
--- NOTE | 2019-09-12 13:32 | FL ---
EXAMINATION TYPE: FL guided pain mgmt statistic DATE OF EXAM: 09/12/2019 CLINICAL HISTORY: Low back pain. TECHNIQUE: Fluoroscopy. COMPARISON: None. FINDINGS: Fluoroscopic guidance was provided during pain relief procedure performed by anesthesia Dr . A total of 5 seconds of fluoroscopic time was utilized during the procedure and 3 spot images are acquired. Images acquired shows needle localization at L5 level with contrast injection from posteri or approach. IMPRESSION: As Above.
[2019-09-12 16:19] VITALS: TEMP 97.8
[2019-09-12 16:39] LABS: Glucose,Whole Blood 155 mg/dL (75-99)
[2019-09-12 20:15] LABS: Glucose,Whole Blood 198 mg/dL (75-99)
[2019-09-12] MEDS: MONTELUKAST 10 MG TAB PO SCH (20:23)
[2019-09-12] MEDS: ATORVASTATIN 40 MG TAB PO SCH (20:23)
[2019-09-13 00:31] VITALS: RESP 18
[2019-09-13] MEDS: HYDROmorphone 0.5 MG/0.5 ML SYRINGE IVP PRN (03:04)
[2019-09-13] MEDS: LEVOTHYROXINE 75 MCG TAB PO SCH (06:23)
[2019-09-13] MEDS: HYDROcodone/APAP 10-325MG 1 EACH TAB PO PRN ×2 (06:24→11:04)
[2019-09-13 06:44] LABS: Glucose,Whole Blood 205 mg/dL (75-99)
[2019-09-13 07:45] VITALS: BP 117/59; PULSE 60
[2019-09-13] MEDS: SYMBICORT 80-4.5 MCG INHALER INHALATION SCH (08:08)
[2019-09-13] MEDS: methylPREDNISolone SOD SUCCI 125 MG/2 ML VIAL IV SCH (08:55)
[2019-09-13] MEDS: CYANOCOBALAMIN 500 MCG TAB PO SCH (08:55)
[2019-09-13] MEDS: CARVEDILOL 3.125 MG TAB PO SCH (08:55)
[2019-09-13] MEDS: CALCIUM CARBONATE 500 MG CHEWABLE PO SCH (08:55)
[2019-09-13] MEDS: INSULIN ASPART (NovoLOG) 100 UNIT/ML VIAL SQ SCH (08:55)
[2019-09-13] MEDS: MULTIVITAMINS, THERA 1 EACH TAB PO SCH (08:55)
[2019-09-13] MEDS: PANTOPRAZOLE 40 MG TABLET PO SCH (08:55)
[2019-09-13] MEDS: LISINOPRIL 5 MG TAB PO SCH (11:05)
[2019-09-13] MEDS: GLIMEPIRIDE 1 MG TAB PO SCH (11:05)
== END 2019-09-13 12:05 | disposition home or self-care (01) | DRG 552 ==
LOC: 1SOBS 10:55 → OBSVTOIN 09-13 08:51
PROVIDERS: ADMIT Family Medicine; ATTEND Family Medicine
PROC: 3E0R33Z Introduction of Anti-inflammatory into Spinal Canal, Percutaneous Approach (ICD-10-PCS; principal; 2019-09-12 11:30)
PROC: 3E0R3BZ Introduction of Anesthetic Agent into Spinal Canal, Percutaneous Approach (ICD-10-PCS; principal; 2019-09-12 11:30)
PROC: 3E0R3KZ Introduction of Other Diagnostic Substance into Spinal Canal, Percutaneous Approach (ICD-10-PCS; principal; 2019-09-12 11:30)
PROC: B01B1ZZ Fluoroscopy of Spinal Cord using Low Osmolar Contrast (ICD-10-PCS; principal; 2019-09-12 11:30)
DX: M51.16 Intervertebral disc disorders with radiculopathy, lumbar region (principal); E03.9 Hypothyroidism, unspecified; M47.26 Other spondylosis with radiculopathy, lumbar region; M16.11 Unilateral primary osteoarthritis, right hip; G89.4 Chronic pain syndrome; I10 Essential (primary) hypertension; E78.5 Hyperlipidemia, unspecified; I25.10 Atherosclerotic heart disease of native coronary artery without angina pectoris; E11.9 Type 2 diabetes mellitus without complications; J44.9 Chronic obstructive pulmonary disease, unspecified; H91.90 Unspecified hearing loss, unspecified ear; G47.30 Sleep apnea, unspecified; Z79.84 Long term (current) use of oral hypoglycemic drugs; Z79.82 Long term (current) use of aspirin; Z79.890 Hormone replacement therapy; Z79.51 Long term (current) use of inhaled steroids; Z79.899 Other long term (current) drug therapy; Z95.1 Presence of aortocoronary bypass graft; Z90.49 Acquired absence of other specified parts of digestive tract; Z85.72 Personal history of non-Hodgkin lymphomas; Z96.642 Presence of left artificial hip joint; Z96.652 Presence of left artificial knee joint; Z87.891 Personal history of nicotine dependence; Z98.84 Bariatric surgery status; Z98.51 Tubal ligation status; Z98.890 Other specified postprocedural states; Z80.1 Family history of malignant neoplasm of trachea, bronchus and lung
CPT/HCPCS: 62323; 72131; 80048; 85025; 94640

== ENCOUNTER → 2019-09-26 | Outpatient (CLI) | payer MEDICARE, OTHER ==
[2019-09-26 11:15] VITALS: BP 122/72; PULSE 62; RESP 20
--- NOTE | 2019-09-26 12:57 | P.PN ---
Subjective Progress Note Date: 09/26/19 This is a 69-year-old lady with history of chronic lower back pain with radiation to the right lower extremity down to the right foot with numbness and tingling in the right thigh. The patient had transforaminal epidural steroid injection a few weeks ago which gave her more than 80% of pain relief for 2 days after the procedure but the pain has been doing back gradually with increasing intensity. Patient denies new-onset weakness, bowel/bladder incontinence, or any other signs or symptoms of cauda equina syndrome. There are no signs of acute intoxication, and no indications of medication diversion or overuse. In addition to above, 13-point review of systems is also negative for chest pain, shortness of breath, changes in vision, changes in hearing, new onset weakness, abdominal pain, diarrhea, extreme fatigue, malaise, fever, skin changes, homicidal or suicidal ideation, or bowel or bladder incontinence. Vital Signs: Reviewed in EMR Gen: AAOx3, NAD HEENT: PERRLA,hearing grossly normal Pulm: resp unlabored Heart: Regular Neck: supple, trachea midline Neuro exam of the lower extremities: Decreased but symmetrical knee reflexes, absent ankle reflexes bilaterally. Normal muscle strength in the lower extremities. Straight leg raising test: Mildly positive Luis M's test: Range of motion of the lumbar spine: Facet loading test: Tenderness in the paravertebral musculature: Positive in the lumbar area Neuro: CN II-XII grossly intact, Imaging: Reviewed in EMR/chart Assessment: Right lumbar radiculopathy Morbid obesity Diabetes Plan: 1. Explanation: Opioid and psychological risk scores were reviewed. Diagnoses, prognoses, and multiple treatment options including but not limited to physical therapy, interventional therapies, adjuvant medical therapies, narcotic medication therapies, and surgery were discussed with the patient and all questions were answered to the patient's satisfaction. 2. Opioid agreement: Signed with the patient and the patient is warned not to use opioids while driving or before driving and not to combine opioids with benzodiazepines or alcohol. 3. Counseling: The patient was counseled extensively on SMOKING CESSATION, BODY MASS INDEX, EXERCISE. Specifically, the patient was instructed regarding the importance of smoking cessation, obesity, and exercise in the context of both chronic pain and overall health. 4. Procedures: Repeat transforaminal epidural steroid injection at the L4 5 level on the right side using fluoroscopy 5. Consultations: None 6. Investigations: None 7. Medications: None 8. Disposition: Return to the above-mentioned procedure as soon as possible 9. Maps were reviewed and were appropriate. Objective - Vital Signs Vital signs: Vital Signs Temp Pulse 62 09/26/19 11:09 Resp 20 09/26/19 11:09 BP 122/72 09/26/19 11:09 Pulse Ox 94 L 09/26/19 11:09
== END | disposition home or self-care (01) ==
LOC: PNWHC3 10:40
PROVIDERS: ATTEND Anesthesiology
DX: G89.29 Other chronic pain (principal); M54.16 Radiculopathy, lumbar region; E66.01 Morbid (severe) obesity due to excess calories; E11.9 Type 2 diabetes mellitus without complications; Z68.42 Body mass index [BMI] 45.0-49.9, adult
CPT/HCPCS: 99211

== ENCOUNTER → 2019-10-02 | Outpatient (CLI) | payer MEDICARE, OTHER ==
[2019-10-02 09:10] LABS: Anisocytosis Slight; Basophils % (A) 1 %; Eosinophils # (A) 0.1 k/uL (0-0.7); Eosinophils % (A) 3 %; HCT 39.3 % (34.0-46.0); HGB 12.3 gm/dL (11.4-16.0); Lymphocytes # (A) 1.3 k/uL (1.0-4.8); Lymphocytes % (A) 30 %; MCHC 31.3 g/dL (31.0-37.0); Mean Platelet Volume 7.2; Monocytes # (A) 0.4 k/uL (0-1.0); Monocytes % (A) 10 %; Neutrophils # (A) 2.3 k/uL (1.3-7.7); Neutrophils % (A) 52 %; Platelet Count 245 k/uL (150-450); RBC 3.97 m/uL (3.80-5.40); RDW 16.2 % (11.5-15.5); WBC 4.4 k/uL (3.8-10.6)
[2019-10-02 09:17] LABS: INR 0.9 (<1.2); Prothrombin Time 9.8 sec (9.0-12.0)
[2019-10-02 09:27] LABS: Potassium 4.4 mmol/L (3.5-5.1)
== END | disposition home or self-care (01) ==
LOC: LABPAT 08:11
PROVIDERS: ATTEND Orthopaedic Surgery
DX: Z01.818 Encounter for other preprocedural examination (principal); Z01.812 Encounter for preprocedural laboratory examination; M16.11 Unilateral primary osteoarthritis, right hip; Z79.01 Long term (current) use of anticoagulants
CPT/HCPCS: 36415; 80051; 85025; 85610; 93005

== ENCOUNTER 2019-10-10 09:28 | Inpatient (IN) | payer MEDICARE, OTHER ==
--- NOTE | 2019-10-09 11:23 | HP ---
HISTORY AND PHYSICAL CHIEF COMPLAINT: Right hip pain. 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 It has worsened recently. She has groin and thigh pain with weightbearing activities. She notes it severely limits her. She has tried medications with minimal relief. PAST MEDICAL HISTORY: Significant for arthritis, type 2 diabetes, asthma, coronary artery disease, and obesity. PAST SURGICAL HISTORY: Significant for coronary artery bypass grafting, Lap-Band procedure, cholecystectomy, fixation of a left distal radius fracture, right reverse shoulder arthroplasty, bilateral shoulder arthroscopy, and left total knee arthroplasty. CURRENT MEDICATIONS: Advair, Zocor, aspirin, lisinopril, carvedilol, glimepiride, levothyroxine, and [place]. ALLERGIES: SHE HAS ALLERGIES TO ZYLOPRIM AND KEFLEX. FAMILY HISTORY: Family history is noncontributory. SOCIAL HISTORY: Negative for current tobacco or alcohol use. REVIEW OF SYSTEMS: Sixteen-point review of systems otherwise reviewed and is noncontributory. PHYSICAL EXAMINATION: On examination, the patient is approximately 5 feet 3 inches, 256 pounds with endomorphic habits. HEENT examination is nonfocal. Neck is supple. Passive motion right hip: Flexion 75 degrees, external rotation with the hip flexed 70 degrees, internal rotation -10 degrees with pain. Clinically, she has 1 cm shortening of the right lower extremity compared to the left. Her distal neurovascular examination appears intact in right lower extremity. RADIOLOGIC DATA: X-rays of the right hip obtained in the office showed severe osteoarthrosis with bone- on-bone changes. IMPRESSION: 1. Right hip severe osteoarthrosis - symptomatic. 2. Morbid obesity. 3. Noninsulin-dependent diabetes. 4. History of coronary artery disease. RECOMMENDATIONS: I talked to the patient at length regarding her condition along with treatment options. At this point, she knows she is quite limited because of pain related to her hip arthritis. After a thorough discussion, she opts to proceed with surgery. We will plan on proceeding with right total hip arthroplasty. We will institute deep venous thrombosis prophylaxis postoperatively. The patient underwent preoperative medical evaluation by Dr. Padilla Santiago and cardiac evaluation by Dr. Caro. MMBRIANL / ELOISAN: [id number] /
[~2019-10-10 09:28] MED LIST changes: +ACETAMINOPHEN TAB 500 MG TAB PO ONE; +HYDROmorphone 0.5 MG/0.5 ML SYRINGE IVP PRN; -LACTATED RINGERS 1,000 ML IV SCH; -LIDOCAINE 1% INJ 10MG/ML (20 ML MDV) ONE; +MELOXICAM 7.5 MG TAB PO ONE; +ONDANSETRON 4 MG/2 ML VIAL IVP ONE; -PROPOFOL 10 MG/ML 20 ML VIAL IV ONE; +TRANEXAMIC ACID 1,000 MG in SODIUM CHLORIDE 0.9% 100 ML IVPB ONE; +VANCOMYCIN 1,750 MG in SODIUM CHLORIDE 0.9% 500 ML 500 ML IVPB ONE
[2019-10-10] MEDS: LACTATED RINGERS 1,000 ML IV SCH (10:10)
[2019-10-10 10:19] LABS: Glucose,Whole Blood 106 mg/dL (75-99)
[2019-10-10] MEDS ORDERED: ceFAZolin 3,000 MG in SODIUM CHLORIDE 0.9% IRRIGATIO 3,000 ML IRRIGATION ONE (10:30)
[2019-10-10] MEDS ORDERED: ePHEDrine SULFATE/0.9% NACL/PF 50 MG/5 ML SYRINGE IV ONE (10:41)
[2019-10-10] MEDS ORDERED: fentaNYL (PF) 50 MCG/ML 2 ML AMP ONE (10:41)
[2019-10-10] MEDS ORDERED: PROPOFOL 10 MG/ML 20 ML VIAL IV ONE (10:41)
[2019-10-10] MEDS ORDERED: TRANEXAMIC ACID 1,000 MG/10 ML VIAL ONE (10:41)
[2019-10-10] MEDS ORDERED: MIDAZOLAM 2 MG/2 ML VIAL ONE (10:41)
[2019-10-10] MEDS ORDERED: SODIUM CHLORIDE 0.9% 100 ML BAG ONE (10:41)
[2019-10-10] MEDS ORDERED: PHENYLEPHRINE-0.9% NACL SYG 1 MG/10 ML SYRINGE ONE (10:41)
[2019-10-10] MEDS ORDERED: MAGNESIUM HYDROXIDE 2,400 MG/10 ML CUP PO PRN (12:25)
[2019-10-10] MEDS ORDERED: ONDANSETRON 4 MG/2 ML VIAL IVP PRN (12:25)
[2019-10-10] MEDS ORDERED: HYDROcodone/APAP 10-325MG 1 EACH TAB PO PRN (12:25)
[2019-10-10] MEDS ORDERED: NALOXONE 0.4 MG/ML 1 ML VIAL IV PRN (12:25)
[2019-10-10] MEDS ORDERED: HYDROmorphone 0.5 MG/0.5 ML SYRINGE IVP PRN (12:25)
[2019-10-10] MEDS ORDERED: ACETAMINOPHEN TAB 325 MG TAB PO PRN (12:25)
[2019-10-10] MEDS ORDERED: LACTATED RINGERS 1,000 ML IV ONE (12:35)
--- NOTE | 2019-10-10 12:49 | P.OP ---
Date of Procedure: 10/10/19 Preoperative Diagnosis: Right hip severe osteoarthrosis Postoperative Diagnosis: Same Procedure(s) Performed: Right total hip arthroplastypress-fitlateral approach Implants: Depuy Corail size 12 standard press-fit femoral stem, 32 mm +5 cobalt chrome femoral head, 52 mm [place] acetabular shell with neutral polyethylene liner. Anesthesia: spinal Surgeon: Rohit Jesus Cylinder Press Feeder #1: Rober Calabrese Estimated Blood Loss (ml): 200 Pathology: other (Femoral head) Condition: stable Disposition: PACU Indications for Procedure: The patient's a 69-year-old female who presents with progressive right hip pain secondary to osteoarthrosis despite conservative measures. A discussion of the risks and benefits of operative intervention versus continued conservative measures was made with patient. She opted to proceed with surgery. Operative risks to include infection, neurovascular injury, development blood clots, possible fracture, possible leg length discrepancy, possible instability and need for subsequent procedures was discussed. Informed consent was obtained. Operative Findings: As below Description of Procedure: The patient was brought to the operating room, and after induction of spinal anesthesia was placed in a lateral decubitus position. The bony prominences were appropriately padded. The pelvis was stable perpendicular to the floor with a pegboard. The right lower extremity was prepped and draped in normal fashion. A 12 cm incision was then made centered over the greater trochanter extending superiorly to level the ASIS and distally in line with the femoral shaft. The skin and subcutaneous tissues were divided sharply. Electrocautery was used for hemostasis. The fascia rosangela and gluteus melinda fascia was split in line with the skin incision. The muscle fibers were bluntly dissected proximally. A self-retaining retractor was placed. The anterior and posterior margins of the gluteus medius muscles identified and the anterior two thirds was detached from the greater trochanter with electrocautery. The gluteus minimus tendon was identified and detached in a similar fashion. A wide capsulotomy was performed. The femoral neck fracture was identified in the lower neck cut was made approximately 1 1/2 cm above the level of the lesser trochanter with a sagittal saw at a 45 the shaft. The head was then extracted with a corkscrew. Attention was then paid towards preparing the acetabular. Anterior and posterior retractors were placed. The remaining capsular labral tissues debrided sharply clearly defining the acetabular margins. Began reaming with a 47 mm reamer taking care to initially medialize, then reaming at 45 of abduction and 20 of anteversion. Sequential reaming is performed up to 51 mm. This was down to bleeding bony surface. A trial 52 mm acetabular shell was inserted at 45 of abduction and 20 of anteversion. This was fully seated. There was good rim fit and stability. A 6.5 mm x 25 mm cancellus screw was placed posteriorly with good purchase. A neutral polyethylene liner was then impacted. Care taken to avoid any soft tissue interposition. Attention was then paid towards preparing the proximal femur. A box chisel was used to open the metaphyseal region. A canal finder was used to find the femoral canal. Sequential broaching was performed up to a size 12. This is placed in 15 of anteversion with the leg perpendicular floor judging off the trans-epicondylar axis. There is good rotational stability. A calcar mill was used to fashion the medial calcar. A trial standard neck along with a 32 mm + 5 trial head was placed. The hip was gently reduced. It was taken through range of motion. I felt to be stable in flexion and extension with internal and external rotation. I felt there was adequate anglican of soft tissue tension. The hip was gently dislocated. The trial components removed. Pulsatile lavage was utilized. The final size 12 standard collared femoral stem was inserted again with the leg perpendicular to the floor in 15 of anteversion. Again there was good rotational stability. A 32 mm + 5 cobalt chrome femoral head was gently impacted. The hip was gently reduced. Again it was taken through motion and felt to be stable in flexion and extension with internal and external rotation. Pulsatile lavage was again utilized. With the leg in abduction the gluteus minimus and medius tendons reattached to the greater trochanter with #2 Ethibond suture. There was minimal drainage therefore a deep drain was not placed. The fascia rosangela and gluteus melinda fascia was closed with #2 Ethibond suture. The subcutaneous tissues were reapproximated interrupted 2-0 Vicryl sutures. The skin was reapproximated with 3-0 subcuticular strata fix suture. Skin tape and adhesive was applied. A sterile dressing was applied. The patient was awoken from sedation and transferred to recovery room in good condition. Blood loss was estimated 200 mL. No complications were incurred. Sponge and needle counts were correct in the case. Kamran NIETO assisted during the major composes case to include exposure, implantation, and closure.
[2019-10-10 13:02] LABS: Glucose,Whole Blood 94 mg/dL (75-99)
--- NOTE | 2019-10-10 13:24 | XR ---
Limited right hip HISTORY: Status post right hip arthroplasty Single frontal view of the right hip The patient is status post right hip arthroplasty. Exam is somewhat limited technically. There is chantelle tomic alignment. IMPRESSION: Orthopedic follow-up.
[2019-10-10] MEDS: HYDROmorphone 1 MG/ML 1 ML SYRINGE IVP PRN ×3 (14:37→22:18)
[2019-10-10] MEDS ORDERED: VANCOMYCIN 1,750 MG in SODIUM CHLORIDE 0.9% 500 ML 500 ML IVPB ONE (20:00)
[2019-10-10] MEDS: HYDROcodone/APAP 10-325MG 1 EACH TAB PO PRN (20:22)
[2019-10-10] MEDS ORDERED: MECLIZINE 25 MG TAB PO PRN (20:32)
[2019-10-10] MEDS ORDERED: IPRATROPIUM-ALBUTEROL 3 ML NEB INHALATION PRN (20:32)
[2019-10-10] MEDS ORDERED: PANTOPRAZOLE 40 MG TABLET PO PRN (20:32)
[2019-10-10 20:59] LABS: Glucose,Whole Blood 150 mg/dL (75-99)
[2019-10-10 22:15] LABS: Glucose,Whole Blood 147 mg/dL (75-99)
[2019-10-10] MEDS: INSULIN ASPART (NovoLOG) 100 UNIT/ML VIAL SQ SCH (22:18)
[2019-10-10] MEDS: ATORVASTATIN 40 MG TAB PO SCH (22:19)
[2019-10-10] MEDS: MONTELUKAST 10 MG TAB PO SCH (22:19)
[2019-10-10] MEDS: CALCIUM CARBONATE 500 MG CHEWABLE PO SCH (22:19)
[2019-10-10] MEDS: SENNOSIDES-DOCUSATE SODIUM 1 EACH TAB PO SCH (22:19)
--- NOTE | 2019-10-11 00:02 | CONS ---
CONSULTATION CHIEF COMPLAINT: This patient is a 69-year-old with right hip pain for medical management, status post hip replacement; 69-year-old white female, progressive right hip pain, status post hip surgery. she has groin and thigh pain, weightbearing activities. She is status post surgery complaining of pain radiating down her right leg. She says her pain medicine she is on now is not taking care of her. PAST MEDICAL HISTORY: Arthritis, type 2 diabetes mellitus, asthma, coronary artery disease, obesity. Basal cell lymphoma, in remission. SURGICAL HISTORY: CABG surgery, lap band procedure, cholecystectomy, fixation of left distal radial fracture, right reverse shoulder arthroscopy, bilateral shoulder arthroscopy, left total knee arthroscopy. MEDICATIONS: Medications include Advair Diskus, Zocor, aspirin, lisinopril, carvedilol, glimepiride, levothyroxine, [place]. FAMILY HISTORY: Negative. SOCIAL HISTORY: No smoking or alcohol. REVIEW OF SYSTEMS: Fourteen-point review of systems negative except for mentioned in HPI. PHYSICAL EXAMINATION: She is 5 feet 3 inches tall and weighs 256. HEENT: Normocephalic, atraumatic. CARDIOVASCULAR: S1, S2. LUNGS: Clear. GI: Soft, nontender. HEMATOLOGY: Negative Homans. PSYCH: Fair mood and affect. OPHTHALMOLOGIC: Pupils equal, round, reactive to light and accommodation. Bandage on the right hip, status post right hip replacement. Diabetes mellitus. Coronary artery disease. Radiculopathy type pain down her leg. History of cell lymphoma. Continue current treatments. Home medications had been reordered. Pain control per Orthopedics. MMODL / IJN: [id number] /
[2019-10-11] MEDS: HYDROmorphone 1 MG/ML 1 ML SYRINGE IVP PRN ×2 (01:29→05:40)
[2019-10-11] MEDS: HYDROcodone/APAP 10-325MG 1 EACH TAB PO PRN ×4 (02:41→20:38)
[2019-10-11] MEDS: LACTATED RINGERS 1,000 ML IV SCH ×2 (05:40→21:32)
[2019-10-11] MEDS: LEVOTHYROXINE 75 MCG TAB PO SCH (05:40)
[2019-10-11 06:58] LABS: Glucose,Whole Blood 131 mg/dL (75-99)
[2019-10-11] MEDS: INSULIN ASPART (NovoLOG) 100 UNIT/ML VIAL SQ SCH ×4 (07:20→20:37)
[2019-10-11 08:23] LABS: Anisocytosis Slight; Basophils % (A) 0 %; Eosinophils % (A) 1 %; HCT 34.5 % (34.0-46.0); HGB 11.2 gm/dL (11.4-16.0); Lymphocytes # (A) 1.1 k/uL (1.0-4.8); Lymphocytes % (A) 19 %; MCH 31.7 pg (25.0-35.0); MCHC 32.4 g/dL (31.0-37.0); MCV 97.8 fL (80.0-100.0); Mean Platelet Volume 7.5; Monocytes # (A) 0.5 k/uL (0-1.0); Monocytes % (A) 9 %; Neutrophils # (A) 3.8 k/uL (1.3-7.7); Neutrophils % (A) 69 %; Platelet Count 199 k/uL (150-450); RBC 3.53 m/uL (3.80-5.40); RDW 16.3 % (11.5-15.5); WBC 5.5 k/uL (3.8-10.6)
[2019-10-11] MEDS: CYANOCOBALAMIN 500 MCG TAB PO SCH (08:52)
[2019-10-11] MEDS: LISINOPRIL 5 MG TAB PO SCH (08:52)
[2019-10-11] MEDS: CARVEDILOL 3.125 MG TAB PO SCH ×2 (08:52→17:53)
[2019-10-11] MEDS: RIVAROXABAN 10 MG TAB PO SCH (08:52)
[2019-10-11] MEDS: FAMOTIDINE 20 MG TAB PO SCH (08:52)
[2019-10-11] MEDS: ASPIRIN 81 MG PO SCH (08:52)
[2019-10-11] MEDS: CALCIUM CARBONATE 500 MG CHEWABLE PO SCH ×2 (08:52→20:41)
[2019-10-11] MEDS: MULTIVITAMINS, THERA 1 EACH TAB PO SCH (08:52)
[2019-10-11] MEDS: SYMBICORT 80-4.5 MCG INHALER INHALATION SCH ×2 (09:06→19:09)
[2019-10-11] MEDS: GLIMEPIRIDE 1 MG TAB PO SCH (09:52)
[2019-10-11] MEDS ORDERED: hydrOXYzine PAMOATE 25 MG CAP PO PRN (10:07)
--- NOTE | 2019-10-11 10:18 | P.PN ---
Subjective Progress Note Date: 10/11/19 Principal diagnosis: Status post right total hip arthroplasty Patient evaluated today at bedside, she complains of discomfort involving the leg at this time. She states that she didn't sleep much the last night due to the discomfort. She has not been up with physical therapy at this time. She currently denies any chest pain, shortness of breath, fever or chills. Objective - Vital Signs Vital signs: Vital Signs Temp 98.5 F 10/11/19 07:30 Pulse 88 10/11/19 07:30 Resp 22 10/11/19 07:30 BP 99/66 10/11/19 07:30 Pulse Ox 94 L 10/11/19 07:30 Intake & Output 10/10/19 10/11/19 10/11/19 18:59 06:59 18:59 Intake Total 1151 500 660 Output Total 200 400 Balance 951 500 260 Weight 124.7 kg Intake: IV 1151 Intake, IV Titration 500 80 Amount Lactated Ringers 1,000 ml 80 @ 40 mls/hr IV .Q24H [facility] Rx#:[id number] Vancomycin 1,750 mg In 500 Sodium Chloride 0.9% 500 ml 500 ml @ 166.667 mls/ hr IVPB ONCE ONE Rx#: [id number] Oral 580 Output: Urine 400 Estimated Blood Loss 200 Other: Voiding Method Incontinent # Voids 1 1 - Exam Right lower extremity: Incision is clean, dry, and intact. The exofin fusion tape is in good condition. There is minimal soft tissue swelling and ecchymosis surrounding the medial and lateral aspects of the incision. Calf is soft, no tenderness with palpation. Plantar flexion, dorsiflexion, EHL, FHL are intact. Sensory exam to light touch throughout the extremity is intact, dorsal pedis pulses 2+. - Labs CBC & Chem 7: 10/11/19 07:20 Labs: Abnormal Lab Results - Last 24 Hours (Table) 10/10/19 10/10/19 10/10/19 Range/Units 10:14 20:58 22:13 RBC (3.80-5.40) m/uL Hgb (11.4-16.0) gm/dL RDW (11.5-15.5) % POC Glucose (mg/dL) 106 H 150 H 147 H (75-99) mg/dL 10/11/19 10/11/19 Range/Units 06:57 07:20 RBC 3.53 L (3.80-5.40) m/uL Hgb 11.2 L (11.4-16.0) gm/dL RDW 16.3 H (11.5-15.5) % POC Glucose (mg/dL) 131 H (75-99) mg/dL Assessment and Plan Plan: Assessment: Postoperative day #1 status post right total hip arthroplasty Plan: Pain control, continue current medication. Did adjust oral medication planning tramadol and Vistaril. I had a long discussion with the patient today regarding her use of high-dose long-term pain medication and the pain control will be more difficult with her GI and DVT prophylaxis, continue current medication Wound care instructions discussed Icing and elevating techniques discussed Continue her physical therapy Medical recommendations She was made inpatient, was hopeful plan for discharge home in the next day or 2 Time with Patient: Less than 30
[2019-10-11 11:07] LABS: Glucose,Whole Blood 186 mg/dL (75-99)
[2019-10-11] MEDS: traMADol 50 MG TAB PO SCH ×3 (13:02→21:35)
[2019-10-11 16:53] LABS: Glucose,Whole Blood 127 mg/dL (75-99)
[2019-10-11 20:29] LABS: Glucose,Whole Blood 129 mg/dL (75-99)
[2019-10-11] MEDS: ATORVASTATIN 40 MG TAB PO SCH (20:40)
[2019-10-11] MEDS: MONTELUKAST 10 MG TAB PO SCH (20:40)
[2019-10-11] MEDS: SENNOSIDES-DOCUSATE SODIUM 1 EACH TAB PO SCH (20:40)
--- NOTE | 2019-10-11 23:40 | PN ---
PROGRESS NOTE SUBJECTIVE: This patient is a 69-year-old white female, status post of the right hip. States she is in severe pain. Pain is not being controlled with current medications, status post hip surgery. CARDIOVASCULAR: S1, S2. ENDOCRINE: BMI is over 40. LUNGS: Clear. MUSCULOSKELETAL: Patch on the right leg. Continue on DuoNeb for COPD and asthma. She is on Dilaudid p.r.n. for pain, back on Xarelto for blood thinner, Requip for restless legs syndrome. Prognosis guarded. Continue with pain control, PT, OT. MMODL / IJN: [id number] /
[2019-10-12] MEDS ORDERED: HYDROcodone/APAP 10-325MG 1 EACH TAB ONE (04:23)
[2019-10-12] MEDS: LEVOTHYROXINE 75 MCG TAB PO SCH (05:36)
[2019-10-12 06:46] LABS: Glucose,Whole Blood 128 mg/dL (75-99)
[2019-10-12] MEDS: INSULIN ASPART (NovoLOG) 100 UNIT/ML VIAL SQ SCH ×4 (06:47→21:23)
[2019-10-12] MEDS: ASPIRIN 81 MG PO SCH (07:17)
[2019-10-12] MEDS: MULTIVITAMINS, THERA 1 EACH TAB PO SCH (07:18)
[2019-10-12] MEDS: FAMOTIDINE 20 MG TAB PO SCH (07:18)
[2019-10-12] MEDS: traMADol 50 MG TAB PO SCH ×4 (07:18→21:22)
[2019-10-12] MEDS: GLIMEPIRIDE 1 MG TAB PO SCH (07:18)
[2019-10-12] MEDS: CALCIUM CARBONATE 500 MG CHEWABLE PO SCH ×2 (07:18→20:04)
[2019-10-12] MEDS: CARVEDILOL 3.125 MG TAB PO SCH ×2 (07:18→17:02)
[2019-10-12] MEDS: LISINOPRIL 5 MG TAB PO SCH (07:18)
[2019-10-12] MEDS: RIVAROXABAN 10 MG TAB PO SCH (07:18)
[2019-10-12] MEDS: SYMBICORT 80-4.5 MCG INHALER INHALATION SCH ×2 (08:26→20:08)
[2019-10-12] MEDS: HYDROcodone/APAP 10-325MG 1 EACH TAB PO PRN ×3 (10:42→22:57)
[2019-10-12 11:22] LABS: Glucose,Whole Blood 98 mg/dL (75-99)
--- NOTE | 2019-10-12 12:09 | P.PN ---
Subjective Progress Note Date: 10/12/19 Principal diagnosis: Status post right total hip arthroplasty Patient evaluated today at She bedside, she's resting in her hospital chair. Her pain is better controlled today. She is ambulating with therapy. Currently denies any chest pain, shortness of breath, fever or chills. Objective - Vital Signs Vital signs: Vital Signs Temp 97.4 F L 10/12/19 07:00 Pulse 71 10/12/19 07:00 Resp 16 10/12/19 07:00 BP 116/68 10/12/19 07:00 Pulse Ox 95 10/12/19 07:00 Intake & Output 10/11/19 10/12/19 10/12/19 18:59 06:59 18:59 Intake Total 1240 340 Output Total 400 1000 Balance 840 -660 Intake: Intake, IV Titration 80 240 Amount Lactated Ringers 1,000 ml 80 240 @ 40 mls/hr IV .Q24H [facility] Rx#:[id number] Oral 1160 100 Output: Urine 400 1000 Other: Voiding Method Bedside Commode Bedside Commode # Voids 1 - Exam Right lower extremity: Incision is clean, dry, and intact. The exofin fusion tape is in good condition. There is minimal soft tissue swelling and ecchymosis surrounding the medial and lateral aspects of the incision. Calf is soft, no tenderness with palpation. Plantar flexion, dorsiflexion, EHL, FHL are intact. Sensory exam to light touch throughout the extremity is intact, dorsal pedis pulses 2+. - Labs CBC & Chem 7: 10/11/19 07:20 Labs: Abnormal Lab Results - Last 24 Hours (Table) 10/11/19 10/11/19 10/12/19 Range/Units 16:52 20:29 06:45 POC Glucose (mg/dL) 127 H 129 H 128 H (75-99) mg/dL Assessment and Plan Plan: Assessment: Postoperative day #2 status post right total hip arthroplasty Plan: Pain control, continue current medication GI and DVT prophylaxis, continue current medication Wound care instructions discussed Icing and elevating techniques discussed Continue her physical therapy Medical recommendations Plan for discharge home tomorrow Time with Patient: Less than 30
[2019-10-12 16:57] LABS: Glucose,Whole Blood 83 mg/dL (75-99)
--- NOTE | 2019-10-12 17:06 | P.PN ---
Subjective Progress Note Date: 10/12/19 This is 69-year-old female status post right total hip arthroplasty. Ambulating with PT, completed stairs, tolerated exertion well. Denies lightheadedness, dizziness or focal deficits. Denies chest pain, palpitations or shortness of breath. Pain controlled better today. Passing flatus, Positive bowel movement reported per nursing, yesterday. Afebrile. Anticoagulated on Xarelto. Objective - Vital Signs Vital signs: Vital Signs Temp 98.9 F 10/12/19 15:00 Pulse 73 10/12/19 15:00 Resp 17 10/12/19 15:00 BP 121/59 10/12/19 15:00 Pulse Ox 96 10/12/19 15:00 Intake & Output 10/11/19 10/12/19 10/12/19 18:59 06:59 18:59 Intake Total 7610 844 5915 Output Total 400 1000 Balance 840 -660 1160 Intake: Intake, IV Titration 80 240 Amount Lactated Ringers 1,000 ml 80 240 @ 40 mls/hr IV .Q24H [facility] Rx#:[id number] Oral 2084 962 [id number] Output: Urine 400 1000 Other: Voiding Method Bedside Commode Bedside Commode # Voids 1 2 - Exam PHYSICAL EXAM: VITAL SIGNS: As above GENERAL: Sitting up in bed, no acute distress HEENT: Conjunctivae normal. eyes normal. Oral mucosa moist NECK: No JVD. No thyroid enlargement. No LNs CARDIOVASCULAR: S1, S2 regular. No murmur RESPIRATION: Breath sounds diminished in the bases. No rhonchi or crackles. No bronchial breathing. ABDOMEN: Soft, nontender . No guarding. no masses palpable. Bowel sounds heard. LEGS: Right lower extremity dressing clean dry and intact, tender, minimal edema, minimal bruising, positive DP. PSYCHIATRY: Alert and oriented X3, mood and affect normal. NERVOUS SYSTEM: Cranial N 2-12 grossly normal. Moves all 4 limbs. No focal deficits. Strength and sensation grossly intact - Labs CBC & Chem 7: 10/11/19 07:20 Labs: Abnormal Lab Results - Last 24 Hours (Table) 10/11/19 10/12/19 Range/Units 20:29 06:45 POC Glucose (mg/dL) 129 H 128 H (75-99) mg/dL Assessment and Plan Assessment: Status post right total hip arthroplasty Plan: Continue on current medication regime ,monitoring and symptomatic treatm ent. Pain management as per primary. PT/OT. Aggressive pulmonary toileting with incentive spirometer reinforced. Discharge planning in progress as per orthopedic surgery. The impression and plan of care has been dictated as directed. : I performed a history and examination of this patient, discussed the same with the dictator. I agree with the dictator's note ,documented as a scribe. Any additional findings or plans will be noted.
[2019-10-12] MEDS: ATORVASTATIN 40 MG TAB PO SCH (20:04)
[2019-10-12] MEDS: SENNOSIDES-DOCUSATE SODIUM 1 EACH TAB PO SCH (20:04)
[2019-10-12] MEDS: MONTELUKAST 10 MG TAB PO SCH (20:04)
[2019-10-12 20:23] LABS: Glucose,Whole Blood 180 mg/dL (75-99)
[2019-10-13] MEDS: HYDROcodone/APAP 10-325MG 1 EACH TAB PO PRN ×2 (04:39→11:19)
[2019-10-13] MEDS: LACTATED RINGERS 1,000 ML IV SCH (05:59)
[2019-10-13] MEDS: LEVOTHYROXINE 75 MCG TAB PO SCH (05:59)
[2019-10-13 06:45] LABS: Glucose,Whole Blood 115 mg/dL (75-99)
[2019-10-13] MEDS: INSULIN ASPART (NovoLOG) 100 UNIT/ML VIAL SQ SCH ×2 (07:05→11:48)
[2019-10-13] MEDS: MULTIVITAMINS, THERA 1 EACH TAB PO SCH (07:24)
[2019-10-13] MEDS: FAMOTIDINE 20 MG TAB PO SCH (07:24)
[2019-10-13] MEDS: ASPIRIN 81 MG PO SCH (07:24)
[2019-10-13] MEDS: CALCIUM CARBONATE 500 MG CHEWABLE PO SCH (07:24)
[2019-10-13] MEDS: RIVAROXABAN 10 MG TAB PO SCH (07:24)
[2019-10-13] MEDS: GLIMEPIRIDE 1 MG TAB PO SCH (07:24)
[2019-10-13] MEDS: CARVEDILOL 3.125 MG TAB PO SCH (07:24)
[2019-10-13 07:25] VITALS: BP 101/48; PULSE 68; RESP 17; TEMP 98.3
[2019-10-13] MEDS: traMADol 50 MG TAB PO SCH (07:25)
[2019-10-13] MEDS: LISINOPRIL 5 MG TAB PO SCH (07:25)
[2019-10-13 08:02] LABS: Basophils % (A) 0 %; Eosinophils # (A) 0.2 k/uL (0-0.7); Eosinophils % (A) 3 %; HCT 33.2 % (34.0-46.0); HGB 10.8 gm/dL (11.4-16.0); Lymphocytes # (A) 1.1 k/uL (1.0-4.8); Lymphocytes % (A) 20 %; MCH 32.1 pg (25.0-35.0); MCHC 32.5 g/dL (31.0-37.0); MCV 98.8 fL (80.0-100.0); Mean Platelet Volume 7.7; Monocytes # (A) 0.6 k/uL (0-1.0); Monocytes % (A) 10 %; Neutrophils # (A) 3.7 k/uL (1.3-7.7); Neutrophils % (A) 65 %; Platelet Count 218 k/uL (150-450); RBC 3.36 m/uL (3.80-5.40); WBC 5.7 k/uL (3.8-10.6)
[2019-10-13] MEDS: SYMBICORT 80-4.5 MCG INHALER INHALATION SCH (08:10)
[2019-10-13] MEDS: CYANOCOBALAMIN 500 MCG TAB PO SCH (09:05)
--- NOTE | 2019-10-13 10:56 | P.PN ---
Subjective Progress Note Date: 10/13/19 Principal diagnosis: Status post right total hip arthroplasty Patient evaluated today, she's resting in her hospital chair. Currently denies any chest pain, shortness of breath, fever or chills. Objective - Vital Signs Vital signs: Vital Signs Temp 98.3 F 10/13/19 07:00 Pulse 68 10/13/19 07:00 Resp 17 10/13/19 07:00 BP 101/48 10/13/19 07:00 Pulse Ox 93 L 10/13/19 07:00 Intake & Output 10/12/19 10/13/19 10/13/19 18:59 06:59 18:59 Intake Total 1160 580 Balance 1160 580 Intake: Oral 1160 580 Other: Voiding Method Bedside Commode Toilet Diaper # Voids 2 1 - Exam Right lower extremity: Incision is clean, dry, and intact. The exofin fusion tape is in good condition. There is minimal soft tissue swelling and ecchymosis surrounding the medial and lateral aspects of the incision. Calf is soft, no tenderness with palpation. Plantar flexion, dorsiflexion, EHL, FHL are intact. Sensory exam to light touch throughout the extremity is intact, dorsal pedis pulses 2+. - Labs CBC & Chem 7: 10/13/19 06:47 Labs: Abnormal Lab Results - Last 24 Hours (Table) 10/12/19 10/13/19 10/13/19 Range/Units 20:21 06:44 06:47 RBC 3.36 L (3.80-5.40) m/uL Hgb 10.8 L (11.4-16.0) gm/dL Hct 33.2 L (34.0-46.0) % RDW 16.0 H (11.5-15.5) % POC Glucose (mg/dL) 180 H 115 H (75-99) mg/dL Assessment and Plan Plan: Assessment: Postoperative day #3 status post right total hip arthroplasty Plan: Pain control, will resume her [place]ul[place] 10 mg/325 mg, will add tramadol 50 mg GI and DVT prophylaxis, Eliquis 2.5mg bid Wound care instructions discussed Icing and elevating techniques discussed Continue her physical therapy Medical recommendations Discharge home today Time with Patient: Less than 30
--- NOTE | 2019-10-13 10:59 | P.DS ---
Providers Date of admission: 10/10/2019 Expected date of discharge: 10/13/19 Attending physician: Rhoit Jesus Consults: 10/10/19 12:25 Consult Physician Routine Consulting Provider: Padilla Santiago Reason/Comments: medical management Do you want consulting provider notified?: Yes Primary care physician: Padilla Santiago [facility] Course: Date of admission: 10/10/2019 Date of discharge: 10/13/2019 Admission diagnosis: Status post right total hip arthroplasty Discharge diagnosis: Same Attending physician: Dr. Jesus Surgical procedures: Right total hip arthroplasty Brief history: Patient is a 69-year-old female with a history of progressive primary right hip osteoarthritis. At this point patient has failed conservative treatment measures and has opted to proceed with a elective right total hip arthroplasty. Hospital course: Details of patient's surgery can be found in operative report. Patient tolerated the procedure well and was subsequently transported to orthopedic floor. Patient's orthopeidc and medical care was provided daily. Patient had daily laboratory tests performed for evaluation of overall blood counts. Patient had daily physical therapy to include strengthening range of motion as well as education with walker ambulation. Patient was treated with Xarelto for their postoperative DVT prophylaxis during their inpatient stay. Patient was noted to have a relatively uneventful postoperative course. Patient reported satisfactory pain control with oral pain medications by postoperative day 0. Patient showed satisfactory progress with physical therapy. Patient moved steadily through the program and had no difficulty meeting the goals by postoperative day 3. Given patient's otherwise satisfactory course and having met physical therapy goals, plan is to discharge patient home on postoperative day 3. Discharge condition/disposition: Patient will be discharged home in stable condition. Discharge medications: Instructions are given on resumption of patient's normal daily medications per primary care recommendation, in addition patient will be prescribed tramadol 50 mg, Eliquis 2.5mg. Discharge instructions: 1. Wound care and infection precautions, keep incision dry and covered while showering, no lotions, creams, moisturizers. No soaking, tubs, pools, hottubs. Do not scrub over the incision. 2. Weight-bear as tolerated with walker / cane until follow-up. 3. Ice and elevate when necessary. Do not exceed 20 minutes per hour with ice pack. 4. Utilize compression sleeve until seen at first follow up appointment. 5. Visiting nursing care. 6. Home physical therapy . 7. Pain meds and anticoagulants per prescription. 8. Pain medication has potential to cause constipation. Increase oral fluid and fiber intake. Contact primary care provider if you have not had a bowel movement within 48 hours after discharge 9. No anti-inflammatory medication until discussed at first post operative visit, this including Motrin, Aleve, Mobic, Diclofenac, . 10. Follow up in office at 2 weeks postop with Kamran Calabrese PA-C 11. Follow up with your primary care doctor 7-10 days after discharge. 12. Contact [facility] with any questions, . Procedures: Right total hip arthroplasty Patient Condition at Discharge: Good Plan - Discharge Summary Discharge Rx Participant: No New Discharge Prescriptions: New Apixaban [Eliquis] 2.5 mg PO BID #60 tab traMADol HCl [Ultram] 50 mg PO Q6H PRN #28 tab PRN Reason: Pain No Action Simvastatin [Zocor] 80 mg PO HS Ergocalciferol [Vitamin D2 (DRISDOL)] 50,000 unit PO MO Levothyroxine Sodium [Synthroid] 150 mcg PO QAM Glimepiride [Amaryl] 1 mg PO AC-BRKFST rOPINIRole HCL [Requip] 1 mg PO HS Meclizine [Antivert] 25 mg PO TID PRN #14 tab PRN Reason: Vertigo Cyanocobalamin (Vitamin B-12) [Vitamin B-12] 1,000 mcg PO MOWEFR HYDROcodone/APAP 10-325MG [[place] 10-325] 1 tab PO Q4H PRN PRN Reason: Pain Lisinopril [Zestril] 5 mg PO DAILY@1200 Fluticasone/Salmeterol [Advair 250-50 Diskus] 1 puff INHALATION RT-BID Multivitamins, Thera [Multivitamin (formulary)] 1 tab PO DAILY Pantoprazole [Protonix] 40 mg PO DAILY PRN PRN Reason: GERD Ipratropium-Albuterol Nebulize [Duoneb 0.5 mg-3 mg/3 ml Soln] 3 ml INHALATION RT-QID PRN PRN Reason: Shortness Of Breath Zafirlukast 20 mg PO BID Carvedilol [Coreg] 3.125 mg PO BID Calcium Carbonate [Calcium] 600 mg PO BID Aspirin EC [Ecotrin Low Dose] 81 mg PO DAILY #0 Discharge Medication List Simvastatin [Zocor] 80 mg PO HS 03/21/14 [History] Ergocalciferol [Vitamin D2 (DRISDOL)] 50,000 unit PO MO 10/09/14 [History] Levothyroxine Sodium [Synthroid] 150 mcg PO QAM 10/09/14 [History] Glimepiride [Amaryl] 1 mg PO AC-BRKFST 10/08/15 [History] rOPINIRole HCL [Requip] 1 mg PO HS 08/04/17 [History] Meclizine [Antivert] 25 mg PO TID PRN #14 tab 08/07/18 [Rx] Cyanocobalamin (Vitamin B-12) [Vitamin B-12] 1,000 mcg PO MOWEFR 08/22/18 [History] HYDROcodone/APAP 10-325MG [[place] 10-325] 1 tab PO Q4H PRN 08/22/18 [History] Lisinopril [Zestril] 5 mg PO DAILY@1200 08/22/18 [History] Fluticasone/Salmeterol [Advair 250-50 Diskus] 1 puff INHALATION RT-BID 09/12/18 [History] Ipratropium-Albuterol Nebulize [Duoneb 0.5 mg-3 mg/3 ml Soln] 3 ml INHALATION RT-QID PRN 07/03/19 [History] Multivitamins, Thera [Multivitamin (formulary)] 1 tab PO DAILY 07/03/19 [History] Pantoprazole [Protonix] 40 mg PO DAILY PRN 07/03/19 [History] Calcium Carbonate [Calcium] 600 mg PO BID 08/22/19 [History] Carvedilol [Coreg] 3.125 mg PO BID 08/22/19 [History] Zafirlukast 20 mg PO BID 08/22/19 [History] Aspirin EC [Ecotrin Low Dose] 81 mg PO DAILY #0 09/13/19 [Rx] Apixaban [Eliquis] 2.5 mg PO BID #60 tab 10/13/19 [Rx] traMADol HCl [Ultram] 50 mg PO Q6H PRN #28 tab 10/13/19 [Rx] Follow up Appointment(s)/Referral(s): [facility], [NON-STAFF] - Padilla Santiago MD [Primary Care Provider] - 1 Week (office closed Please call to make appointment) Rober Calabrese PAC [PHYSICIAN SUPERVISOR PAPER MACHINE] - 10/27/19 1:30 pm Activity/Diet/Wound Care/Special Instructions: Orthopedic Discharge Instructions: 1. Wound care and infection precautions, keep incision dry and covered while showering, no lotions, creams, moisturizers. No soaking, pools, hot tubs. Do not scrub over incision. 2. Weight-bear as tolerated with walker / cane until follow-up. 3. Ice and elevate when necessary. Do not exceed 20 minutes per hour with ice pack. 4. Utilize compression sleeve until seen at first follow up appointment. 5. Pain meds and anticoagulants per prescription. 6. Pain medication has potential to cause constipation. Increase oral fluid and fiber intake. Contact primary care provider if you have not had a bowel movement within 48 hours after discharge. 7. No anti-inflammatory medication until discussed at first post operative visit, this including Motrin, Aleve, Mobic, Diclofenac. 8. Follow up in office at 2 weeks postop with Kamran Calabrese PA-C 9. Follow up with your primary care doctor 7-10 days after discharge. 10. Contact [facility] with any questions, . Discharge Disposition: HOME WITH HOME HEALTH SERVICES
[2019-10-13 11:07] LABS: Glucose,Whole Blood 80 mg/dL (75-99)
--- NOTE | 2019-10-13 16:25 | P.PN ---
Subjective Progress Note Date: 10/13/19 This is 69-year-old female status post right total hip arthroplasty. Ambulating with PT, completed stairs, tolerated exertion well. Denies lightheadedness, dizziness or focal deficits. Denies chest pain, palpitations or shortness of breath. Pain controlled better today. Passing flatus, Positive bowel movement reported per nursing, yesterday. Afebrile. Anticoagulated on Xarelto. 10/13/2019 significant clinical improvement. Pain controlled. Ambulating , tolerating exertion well. Denies chest pain, palpitations or shortness of breath. Good diet intake with no nausea or vomiting. Objective - Vital Signs Vital signs: Vital Signs Temp 98.3 F 10/13/19 07:00 Pulse 68 10/13/19 07:00 Resp 17 10/13/19 07:00 BP 101/48 10/13/19 07:00 Pulse Ox 93 L 10/13/19 07:00 Intake & Output 10/12/19 10/13/19 10/13/19 18:59 06:59 18:59 Intake Total 1160 580 Balance 1160 580 Intake: Oral 1160 580 Other: Voiding Method Bedside Commode Toilet Diaper # Voids 2 1 - Exam PHYSICAL EXAM: VITAL SIGNS: As above GENERAL: Sitting up in chair, no acute distress HEENT: Conjunctivae normal. eyes normal. Oral mucosa moist NECK: No JVD. No thyroid enlargement. No LNs CARDIOVASCULAR: S1, S2 regular. No murmur RESPIRATION: Breath sounds diminished in the bases. ABDOMEN: Soft, nontender . No guarding. no masses palpable. Bowel sounds heard. LEGS: Right lower extremity dressing clean dry and intact, tender, minimal edema, minimal bruising, positive DP. PSYCHIATRY: Alert and oriented X3, mood and affect normal. NERVOUS SYSTEM: Cranial N 2-12 grossly normal. Moves all 4 limbs. No focal deficits. Strength and sensation grossly intact - Labs CBC & Chem 7: 10/13/19 06:47 Labs: Abnormal Lab Results - Last 24 Hours (Table) 10/12/19 10/13/19 10/13/19 Range/Units 20:21 06:44 06:47 RBC 3.36 L (3.80-5.40) m/uL Hgb 10.8 L (11.4-16.0) gm/dL Hct 33.2 L (34.0-46.0) % RDW 16.0 H (11.5-15.5) % POC Glucose (mg/dL) 180 H 115 H (75-99) mg/dL Assessment and Plan Assessment: Status post right total hip arthroplasty Plan: Continue on current medication regime ,monitoring and symptomatic treatment. discharge planning in progress for today as per orthopedic surgery. Pain management as per primary. continue with aggressive pulmonary toileting with incentive spirometer OP. follow-up with PCP in 1 week. The impression and plan of care has been dictated as directed. : I performed a history and examination of this patient, discussed the same with the dictator. I agree with the dictator's note ,documented as a scribe. Any additional findings or plans will be noted.
[2019-10-16] MEDS ORDERED: ERGOCALCIFEROL 50,000 UNIT CAP PO SCH (09:00)
== END 2019-10-13 12:05 | disposition home health service (06) | DRG 470 ==
LOC: OR 09:28 → 4SSUR 12:40 → OR 10-11 09:34 → 4SSUR 10-11 09:39 → OBSVTOIN 10-12 05:32
PROVIDERS: ADMIT Orthopaedic Surgery; ATTEND Orthopaedic Surgery
PROC: 0SR90JA Replacement of Right Hip Joint with Synthetic Substitute, Uncemented, Open Approach (ICD-10-PCS; principal; 2019-10-10 10:50)
DX: M16.11 Unilateral primary osteoarthritis, right hip (principal); Z68.42 Body mass index [BMI] 45.0-49.9, adult; J44.9 Chronic obstructive pulmonary disease, unspecified; I25.10 Atherosclerotic heart disease of native coronary artery without angina pectoris; E11.9 Type 2 diabetes mellitus without complications; E66.01 Morbid (severe) obesity due to excess calories; M54.10 Radiculopathy, site unspecified; G25.81 Restless legs syndrome; Z79.82 Long term (current) use of aspirin; Z79.890 Hormone replacement therapy; Z79.84 Long term (current) use of oral hypoglycemic drugs; Z79.899 Other long term (current) drug therapy; Z95.1 Presence of aortocoronary bypass graft; Z98.84 Bariatric surgery status; Z96.652 Presence of left artificial knee joint; Z96.611 Presence of right artificial shoulder joint; Z90.49 Acquired absence of other specified parts of digestive tract; Z87.81 Personal history of (healed) traumatic fracture; Z85.72 Personal history of non-Hodgkin lymphomas; Z98.890 Other specified postprocedural states; Z88.1 Allergy status to other antibiotic agents; Z88.8 Allergy status to other drugs, medicaments and biological substances
CPT/HCPCS: 73501; 85025; 86850; 86900; 86901; 88305; 88311; 94640; 94660

== ENCOUNTER → 2020-01-26 | Outpatient (CLI) | payer MEDICARE, OTHER ==
--- NOTE | 2020-01-26 16:21 | PE ---
Nuclear medicine PET/CT HISTORY: Lymphoma, subsequent Patient received 13.1 mCi F-18 FDG intravenously in delayed scanning was performed from the skull bas e to the mid thighs. Localization and attenuation correction CT scan was performed. Correlation to prior CT scan dated 06/30/2019 neck and chest: There is no evident cervical, supraclavicular, axillary, mediastinal, or hilar adenop athy. Patient is post median sternotomy. There are coronary artery calcifications present. Pulmonary artery is prominent, correlate for pulmonary artery hypertension. Calcified granuloma present in the right lower lobe. No pleural or pericardial effusion. ABDOMEN: Patient is post gastric sleeve and cholecystectomy. No retroperitoneal adenopathy, no liver or adrenal mass. Metallic clip or calcification may be present within the liver as on prior CT. The s pleen is not enlarged. Nonobstructive calculus present at the lower pole the left kidney, upper pole shows an exophytic cyst, lower pole of the right kidney shows an exophytic cyst. Bowel suture is pres ent within the abdomen. No pelvic or inguinal adenopathy evident. No suspicious hypermetabolic uptake . Bowel uptake is thought to be physiologic. Osseous structures are remarkable for postoperative arthroplasty in the right shoulder, right hip whi ch causes streak artifact over the exam. Facet arthropathy changes are present in the lower lumbar sp ine on the left, there is some associated uptake at this level. IMPRESSION: No evident adenopathy or suspicious uptake.
== END | disposition home or self-care (01) ==
LOC: RADPETMAIN 08:40
PROVIDERS: ATTEND Internal Medicine Hematology & Oncology
DX: C83.39 Diffuse large B-cell lymphoma, extranodal and solid organ sites (principal)
CPT/HCPCS: 78815; A9552

== ENCOUNTER → 2020-02-22 | Outpatient (CLI) | payer MEDICARE, OTHER ==
--- NOTE | 2020-02-22 15:39 | P.PAINPG ---
Subjective Progress Note Date: 02/22/20 This is a follow-up visit for this 69 years old female with a chronic history of severe low back pain, she was seen as an inpatient in August 2019 and we did a lumbar epidural steroid injection, her pain improved, but over the last few months she is complaining of increased low back pain with radiation to posterior aspect of her left lower extremity, the pain is constant and increases with any movement she denies any motor or sensory deficits , she denies any numbness or tingling sensation she denies any fever or night sweats and there is no change in the bowel movement or urination, she continued to use Wilson 10/325 when necessary without any side effects she denies any excessive drowsiness or sl eepiness and she reported that the Wilson help her to control her pain Objective - Vital Signs Vital signs: Vital Signs Temp Pulse 76 02/22/20 13:41 Resp 16 02/22/20 13:41 BP 136/62 02/22/20 13:41 Pulse Ox 95 02/22/20 13:41 - Exam Physical Examinations : -Constitutiona : Cooperative , not in acute distress . -HEENT : nech : supple , no Lymphadenopathy , normal thyroid size . : eyes : no ptosis , no icterus, no photophobia . - neurologic : Cranial nerve II to XII intact , no focal neurological deffecit . -psychatric : alert , oriented X 3 , appropriate affect , intact judgment and insight . -Lymphatic : no Lymphadenopathy . - musculoskeltal : . Lumber spine moter stegnth lower extremities ,thigh and legs 5/5 Right side , 5/5 Left side deep tendon reflexes : normal Knee Jerk , normal ankle Jerk lumber facet Loading Test =positive Right , positive Left Range of motion of the lumbar spine Flexion 30 degrees, extension 10 degrees strait leg raising test = positive at 30 degree Fabere test= positive Right , and positive LT . Computed tomography scan of the lumbar spine multilevel lumbar degenerative disc disease and multilevel lumbar facet arthropathy Assessment and Plan Plan: Assessment and plan=1-lumbar spondylosis with lumbar facet arthropathy without myelopathy. 2-lumbar degenerative disc disease. Patient will be good candidate to have diagnostic medial branch block lumbar area L 3, L4, L5 , to target in the facet joints L45,L5-S1 Time with Patient: Less than 30 PQRS Measure Charge Sheet Measure #130: Documentation of Current Meds in Medical Chart: Patient's medications documented in chart Measure #226: Tobacco Use: Screen & Cessation Intervention: Pt not a tobacco user Measure #111: Pneumonia Vaccination: Pneumococcal vaccine administered or previously received Measure #47: Advance Care Plan: Advance care planning discussed & documented, pt chose/unable to give Measure #412: Opioid Treatment Agreement: No documentation of signed opioid treatment agreement Measure #408: Opioid Therapy Follow-up Evaluation: Patient had NO f/u eval minimum every 3 months during opioid therapy Measure #317: Preventitive Care & Scrn High Bld Press & F/U: Pre-hypertensive or hypertensive BP documented, pt will f/u with PCP Measure #128: Body Mass Index (BMI) Screening & Follow-up: BMI documented ABOVE normal parameters - f/u documented Measure #131: Pain Assessment & Follow-up: Pain positive & plan documented, Follow-up scheduled Measure #431: Unhealthy Alcohol Use Preventative Care & Scrn: Patient not identified as an unhealthy alcohol user PQRS Narrative: Smoking Status Former smoker Blood Pressure 136/62 Pain Intensity [Left Lower 5 Back] Hx Alcohol Use (MH) No Home Medications: Ambulatory Orders Simvastatin [Zocor] 80 mg PO HS 03/21/14 Ergocalciferol [Vitamin D2 (DRISDOL)] 50,000 unit PO MO 10/09/14 Levothyroxine Sodium [Synthroid] 150 mcg PO QAM 10/09/14 Glimepiride [Amaryl] 1 mg PO AC-BRKFST 10/08/15 rOPINIRole HCL [Requip] 1 mg PO HS 08/04/17 Meclizine [Antivert] 25 mg PO TID PRN #14 tab 08/07/18 Cyanocobalamin (Vitamin B-12) [Vitamin B-12] 1,000 mcg PO MOWEFR 08/22/18 HYDROcodone/APAP 10-325MG [Wilson 10-325] 1 tab PO Q4H PRN 08/22/18 Lisinopril [Zestril] 5 mg PO DAILY@1200 08/22/18 Fluticasone/Salmeterol [Advair 250-50 Diskus] 1 puff INHALATION RT-BID 09/12/18 Ipratropium-Albuterol Nebulize [Duoneb 0.5 mg-3 mg/3 ml Soln] 3 ml INHALATION RT-QID PRN 07/03/19 Multivitamins, Thera [Multivitamin (formulary)] 1 tab PO DAILY 07/03/19 Pantoprazole [Protonix] 40 mg PO DAILY PRN 07/03/19 Calcium Carbonate [Calcium] 600 mg PO BID 08/22/19 Carvedilol [Coreg] 3.125 mg PO BID 08/22/19 Zafirlukast 20 mg PO BID 08/22/19 Aspirin EC [Ecotrin Low Dose] 81 mg PO DAILY #0 09/13/19 Controlled Substance Measures - Controlled Substance Measures Is patient prescribed a controlled substance at discharge?: No
[2020-02-23 10:13] VITALS: BP 136/62; PULSE 76; RESP 16
== END | disposition home or self-care (01) ==
LOC: PNWHC3 13:14
PROVIDERS: ATTEND Specialist
DX: G89.29 Other chronic pain (principal); M51.36 Other intervertebral disc degeneration, lumbar region; M47.816 Spondylosis without myelopathy or radiculopathy, lumbar region; Z87.891 Personal history of nicotine dependence; Z79.82 Long term (current) use of aspirin; Z79.84 Long term (current) use of oral hypoglycemic drugs; Z79.899 Other long term (current) drug therapy
CPT/HCPCS: 99211

== ENCOUNTER 2020-03-05 10:18 | Day surgery (SDC) | payer MEDICARE, OTHER ==
[2020-03-01 15:55] VITALS: BMI 47.5
[~2020-03-05 10:18] MED LIST changes: -ACETAMINOPHEN TAB 500 MG TAB PO ONE; -HYDROmorphone 0.5 MG/0.5 ML SYRINGE IVP PRN; +LACTATED RINGERS 1,000 ML IV SCH; -LIDOCAINE 1% 20 ML VIAL (10MG/ML) FOR IV START INTRADERMA PRN; -MELOXICAM 7.5 MG TAB PO ONE; -ONDANSETRON 4 MG/2 ML VIAL IVP ONE; -TRANEXAMIC ACID 1,000 MG in SODIUM CHLORIDE 0.9% 100 ML IVPB ONE; -VANCOMYCIN 1,750 MG in SODIUM CHLORIDE 0.9% 500 ML 500 ML IVPB ONE
[2020-03-05 10:38] VITALS: TEMP 97.8
[2020-03-05] MEDS ORDERED: LACTATED RINGERS 1,000 ML IV ONE (10:38)
[2020-03-05] MEDS ORDERED: LIDOCAINE 1% (10MG/ML) FOR IV START INTRADERMA ONE (10:40)
[2020-03-05 10:52] LABS: Glucose,Whole Blood 139 mg/dL (75-99)
[2020-03-05] MEDS ORDERED: IOPAMIDOL M200 10 ML VIAL ONE (11:18)
[2020-03-05] MEDS ORDERED: MIDAZOLAM 2 MG/2 ML VIAL ONE (11:18)
[2020-03-05] MEDS ORDERED: LIDOCAINE 4% (PF) 5 ML AMP ONE (11:18)
[2020-03-05] MEDS ORDERED: IV FLUID CONTINUATION 600 ML IV ONE (11:42)
--- NOTE | 2020-03-05 11:43 | P.PCN ---
Date of Procedure: 03/05/20 Procedure(s) Performed: PREOPERATIVE DIAGNOSIS : Lumbar spondylosis with Facet Arthropathy without myelopathy POSTOPERATIVE DIAGNOSIS: same PROCEDURE: First Diagnostic lumbar medial branch block with fluoroscopy at L3, L4, L5 bilateral which covers facets L4-5 and L5-S1 ANESTHESIA: Local anesthetic; moderate IV sedation with Versed , sedation time 12 minutes Fluoroscopy was used for the procedure and images were saved in the radiology portion of the chart. Surgeon: Nupur Nava MD PROCEDURE INDICATION: Lumbar back pain without radiculopathy, not responsive to conservative management. PROCEDURE DESCRIPTION: the patient was seen and identified in the preop holding area , risks and benefits and possible complications of the procedure and alternatives were discussed with the patient, and the patient agreed to proceed with the procedure and signed the consent . IV was started , vital signs were monitored during the procedure and fluoroscopy was used to maximize the benefit and accuracy of the needle placement, and sedation was given to decrease patient anxiety. Patient was taken to the procedure room and placed in prone position. The lumbar region was prepped using chlorhexidineX-2. Under strict sterile technique using AP fluoroscopy the bilateral sacral ala were identified and using ipsilateral oblique fluoroscopy ,the junction of the transverse process and the superior articulating process of the L4, L5 vertebra which corresponds to the fluoroscopy image of the eye of the Davis dog for the medial branches were identified. Subsequently, after local infiltration of skin with lidocaine 1% 0.2 mL at each level , a 22-gauge 5 inch Quincke-type needle was placed at the junction of the base of the transverse process and the superior articular process at the appropriate level as well as the sacral ala, and the needle was advanced until the periosteum contacted, needle placement confirmed with AP and oblique fluoroscopy, 0.2 mL of Isovue 200 per level was injected which revealed no vascular uptake and after negative aspiration, 0.5 mL of lidocaine 4% was i njected at each level and the needle subsequently removed . At the end of the procedure and the needles were removed and a bandage applied after the skin was cleaned. The patient was taken to recovery room in stable condition and monitors in the recovery room for 20-30 minutes and discharged home in stable condition after discharge criteria met and patient will follow up in clinic in 2 weeks EBL: Minimal COMPLICATION: None.
[2020-03-05 12:11] VITALS: BP 155/83; PULSE 63; RESP 18
--- NOTE | 2020-03-05 16:51 | FL ---
EXAMINATION TYPE: FL guided pain mgmt statistic DATE OF EXAM: 03/05/2020 CLINICAL HISTORY: Bilateral facet injections TECHNIQUE: Fluoroscopy. COMPARISON: None. FINDINGS: Fluoroscopic guidance was provided during procedure by performing physician in the operati ng room. A total of 6 seconds of fluoroscopic time was utilized during the procedure and 3 spot imag es was acquired. Please see operative report by performing physician for additional details. IMPRESSION: As Above.
== END 2020-03-05 12:18 | disposition home or self-care (01) ==
LOC: ORPAIN 10:18
PROVIDERS: ATTEND Anesthesiology
DX: M47.816 Spondylosis without myelopathy or radiculopathy, lumbar region (principal)
CPT/HCPCS: 64493; 64494; J2001; J2250; Q9966; 99152

== ENCOUNTER 2020-03-21 05:53 | Day surgery (SDC) | payer MEDICARE, OTHER ==
[2020-03-15 08:26] VITALS: BMI 47.5
[2020-03-21 06:30] VITALS: TEMP 98.8
[2020-03-21 06:40] LABS: Glucose,Whole Blood 110 mg/dL (75-99)
[2020-03-21] MEDS ORDERED: LIDOCAINE 1% (10MG/ML) FOR IV START INTRADERMA ONE (06:45)
[2020-03-21] MEDS: LACTATED RINGERS 1,000 ML IV SCH ×2 (06:45→06:46)
[2020-03-21] MEDS ORDERED: ROPIVACAINE 5MG/ML 20ML VIAL ONE (06:47)
[2020-03-21] MEDS ORDERED: IOPAMIDOL M200 10 ML VIAL ONE (06:47)
[2020-03-21] MEDS ORDERED: MIDAZOLAM 2 MG/2 ML VIAL ONE (06:47)
--- NOTE | 2020-03-21 07:13 | P.PCN ---
Date of Procedure: 03/21/20 Description of Procedure: PREOPERATIVE DIAGNOSIS : Lumbar spondylosis with Facet Arthropathy without myelopathy POSTOPERATIVE DIAGNOSIS: same PROCEDURE: 2nd Diagnostic lumbar medial branch block with fluoroscopy at L3, L4, L5 [bilateral] which covers facets L4-5 and L5-S1 ANESTHESIA: Local anesthetic; moderate IV sedation with Versed 1 mg, sedation time 16 min Fluoroscopy was used for the procedure and images were saved in the radiology portion of the chart. Surgeon: Lee Jackson MD PROCEDURE INDICATION: Lumbar back pain without radiculopathy, not responsive to conservative management. PROCEDURE DESCRIPTION: the patient was seen and identified in the preop holding area , risks and benefits and possible complications of the procedure and alternatives were discussed with the patient, and the patient agreed to proceed with the procedure and signed the consent . IV was started , vital signs were monitored during the procedure and fluoroscopy was used to maximize the benefit and accuracy of the needle placement, and sedation was given to decrease patient anxiety. Patient was taken to the procedure room and placed in prone position. The lumbar region was prepped using chlorhexidineX-2. Under strict sterile technique using AP fluoroscopy the bilateral sacral ala were identified and using ipsilateral oblique fluoroscopy ,the junction of the transverse process and the superior articulating process of the L4, L5 vertebra which corresponds to the fluoroscopy image of the eye of the Davis dog for the medial branches were identified. Subsequently, after local infiltration of skin with lidocaine 1% 0.2 mL at each level , a 22-guage 5" Quincke-type needle was placed at the junction of the base of the transverse process and the superior articular process at the appropriate level as well as the sacral ala, and the needle was advanced until the periosteum contacted, needle placement confirmed with AP and oblique fluoroscopy, 0.2 mL of Isovue 200 per level was injected which revealed no vascular uptake and after negative aspiration, 0.5 mL of bupivacaine 0.5% was injected at each level and the needle subsequently removed . At the end of the procedure and the needles were removed and a bandage applied after the skin was cleaned. The patient was taken to recovery room in stable condition and monitors in the recovery room for 20-30 minutes and discharged home in stable condition after discharge criteria met and patient will follow up in clinic in 2 weeks EBL: Minimal COMPLICATION: None.
[2020-03-21] MEDS ORDERED: IV FLUID CONTINUATION 1,000 ML IV ONE (07:16)
[2020-03-21 07:22] VITALS: PULSE 60; RESP 18
[2020-03-21 07:37] VITALS: BP 122/54
--- NOTE | 2020-03-21 09:40 | FL ---
EXAMINATION TYPE: FL guided pain mgmt statistic DATE OF EXAM: 03/21/2020 HISTORY: Fluoroscopy time 8 seconds of fluoroscopy provided. IMPRESSION: 1. Fluoroscopy time.
== END 2020-03-21 07:50 | disposition home or self-care (01) ==
LOC: ORPAIN 05:53
PROVIDERS: ATTEND Anesthesiology
DX: M47.816 Spondylosis without myelopathy or radiculopathy, lumbar region (principal); Z91.09 Other allergy status, other than to drugs and biological substances
CPT/HCPCS: 64493; 64494; J2250; Q9966; J2795; 99152

== ENCOUNTER → 2020-04-15 | Outpatient (CLI) | payer MEDICARE, OTHER ==
[2020-04-15 10:57] VITALS: BP 145/77; PULSE 62; RESP 16; TEMP 97.6
--- NOTE | 2020-04-15 11:36 | P.PAINPG ---
Subjective Progress Note Date: 04/15/20 This is a follow-up visit for this 69 years old female with a chronic history of severe low back pain, she is diagnosed with lumbar degenerative disc disease and lumbar spondylosis, we have done diagnostic medial branch block lumbar area the first one was done in 03/05/2020 and her pain was 6/10 dropped to 0/10 after the block, and a second diagnostic block was done 03/21/2020 and her pain was 6/10 dropped to 0/10 after the block, currently she is complaining of increased low back pain with radiation to posterior aspect of her left lower extremity, the pain is constant and increases with any movement she denies any motor or sensory deficits , she denies any numbness or tingling sensation she denies any fever or night sweats and there is no change in the bowel movement or urination, she continued to use [place] 10/325 when necessary without any side effects she denies any excessive drowsiness or sleepiness and she reported that the [place]olin help her to control her pain Objective - Vital Signs Vital signs: Vital Signs Temp 97.6 F 04/15/20 10:50 Pulse 62 04/15/20 10:50 Resp 16 04/15/20 10:50 BP 145/77 04/15/20 10:50 Pulse Ox 96 04/15/20 10:50 - Exam -Constitutiona : Cooperative , not in acute distress . -HEENT : nech : supple , no Lymphadenopathy , normal thyroid size . : eyes : no ptosis , no icterus, no photophobia . - neurologic : Cranial nerve II to XII intact , no focal neurological deffecit . -psychatric : alert , oriented X 3 , appropriate affect , intact judgment and insight . -Lymphatic : no Lymphadenopathy . - musculoskeltal : . Lumber spine moter stegnth lower extremities ,thigh and legs 5/5 Right side , 5/5 Left side deep tendon reflexes : normal Knee Jerk , normal ankle Jerk lumber facet Loading Test =positive Right , positive Left Range of motion of the lumbar spine Flexion 30 degrees, extension 10 degrees strait leg raising test = positive at 30 degree Fabere test= positive Right , and positive LT . Computed tomography scan of the lumbar spine multilevel lumbar degenerative disc disease and multilevel lumbar facet arthropathy Assessment and Plan Assessment: Assessment and plan=1-lumbar spondylosis with lumbar facet arthropathy without myelopathy. 2-lumbar degenerative disc disease. Patient had excellent pain relief after diagnostic medial branch block 2 She will be good candidate to have RFA of the medial branch lumbar area L3, L4 , L5, bilaterally Time with Patient: Less than 30 PQRS Measure Charge Sheet Measure #130: Documentation of Current Meds in Medical Chart: Patient's medications documented in chart Measure #226: Tobacco Use: Screen & Cessation Intervention: Pt not a tobacco user Measure #111: Pneumonia Vaccination: Pneumococcal vaccine administered or previously received Measure #47: Advance Care Plan: Advance care planning discussed & documented, pt chose/unable to give Measure #412: Opioid Treatment Agreement: No documentation of signed opioid treatment agreement Measure #408: Opioid Therapy Follow-up Evaluation: Patient had NO f/u eval minimum every 3 months during opioid therapy Measure #317: Preventitive Care & Scrn High Bld Press & F/U: Pre-hypertensive or hypertensive BP documented, pt will f/u with PCP Measure #128: Body Mass Index (BMI) Screening & Follow-up: BMI documented ABOVE normal parameters - f/u documented Measure #131: Pain Assessment & Follow-up: Pain positive & plan documented, Follow-up scheduled Measure #431: Unhealthy Alcohol Use Preventative Care & Scrn: Patient not identified as an unhealthy alcohol user PQRS Narrative: Smoking Status Former smoker Blood Pressure 145/77 Pain Intensity [Back] 1 Scale Used Numeric (1 - 10) Hx Alcohol Use (MH) No Home Medications: Ambulatory Orders Simvastatin [Zocor] 80 mg PO HS 03/21/14 Ergocalciferol [Vitamin D2 (DRISDOL)] 50,000 unit PO MO 10/09/14 Levothyroxine Sodium [Synthroid] 150 mcg PO QAM 10/09/14 Glimepiride [Amaryl] 1 mg PO AC-BRKFST 10/08/15 rOPINIRole HCL [Requip] 1 mg PO HS 08/04/17 Meclizine [Antivert] 25 mg PO TID PRN #14 tab 08/07/18 Cyanocobalamin (Vitamin B-12) [Vitamin B-12] 1,000 mcg PO MOWEFR 08/22/18 HYDROcodone/APAP 10-325MG [[place]emacolin 10-325] 1 tab PO Q4H PRN 08/22/18 lisinopriL [Zestril] 5 mg PO DAILY@1200 08/22/18 Fluticasone/Salmeterol [Advair 250-50 Diskus] 1 puff INHALATION RT-BID 09/12/18 Ipratropium-Albuterol Nebulize [Duoneb 0.5 mg-3 mg/3 ml Soln] 3 ml INHALATION RT-QID PRN 07/03/19 Multivitamins, Thera [Multivitamin (formulary)] 1 tab PO DAILY 07/03/19 Pantoprazole [Protonix] 40 mg PO DAILY PRN 07/03/19 Calcium Carbonate [Calcium] 600 mg PO BID 08/22/19 Zafirlukast 20 mg PO BID 08/22/19 carvediloL [Coreg] 3.125 mg PO BID 08/22/19 Aspirin EC [Ecotrin Low Dose] 81 mg PO DAILY #0 09/13/19 Controlled Substance Measures - Controlled Substance Measures Is patient prescribed a controlled substance at discharge?: No
== END | disposition home or self-care (01) ==
LOC: PNWHC3 10:40
PROVIDERS: ATTEND Specialist
DX: M51.36 Other intervertebral disc degeneration, lumbar region (principal); M47.816 Spondylosis without myelopathy or radiculopathy, lumbar region; M46.96 Unspecified inflammatory spondylopathy, lumbar region; Z87.891 Personal history of nicotine dependence; Z79.890 Hormone replacement therapy; Z79.899 Other long term (current) drug therapy; Z79.51 Long term (current) use of inhaled steroids; Z79.82 Long term (current) use of aspirin
CPT/HCPCS: 99211

== ENCOUNTER → 2020-05-07 | Day surgery (SDC) | payer MEDICARE, OTHER ==
[2020-05-06 11:56] VITALS: BMI 47.6
[~2020-05-07] MED LIST changes: +IV FLUID CONTINUATION 1,000 ML IV ONE; +LIDOCAINE 1% INJ 10MG/ML (20 ML MDV) ONE; +LIDOCAINE 4% (PF) 5 ML AMP ONE; +MIDAZOLAM 2 MG/2 ML VIAL ONE; +fentaNYL (PF) 50 MCG/ML 2 ML AMP ONE
[2020-05-07 07:55] VITALS: RESP 16; TEMP 97.5
[2020-05-07 08:07] LABS: Glucose,Whole Blood 146 mg/dL (75-99)
--- NOTE | 2020-05-07 08:46 | P.PCN ---
Date of Procedure: 05/07/20 Description of Procedure: PREOPERATIVE DIAGNOSIS: Lumbar Spondylosis POSTOPERATIVE DIAGNOSIS: Same PROCEDURES: Radiofrequency ablation of the L3, L4, L5 medial branches with fluoroscopic guidance on the bilateral side SURGEON: Lee Jackson MD. ANESTHESIA: Lidocaine 1% 5 mL, Moderate sedation with intravenous Versed and fentanyl, sedation time 29 EBL: Minimal Fluoroscopy was used for the procedure and images were saved in the radiology portion of the chart. PROCEDURE INDICATION: The patient with low back pain secondary to lumbar facet arthropathy who had more than 50% relief of pain with previous diagnostic lumbar medial branch block X2. PROCEDURE DESCRIPTION / TECHNIQUE: The patient was seen and identified in the preoperative area. Risks, benefits, complications, including but not limited to risk of infection ,bleeding , allergic reactions to the medications and incomplete pain relief , and alternatives were discussed with the patient, the patient agreed to proceed with the procedure and signed the consent. IV was started. The operative site was marked. Patient was taken to the OR and time out was completed. The patient was placed in the prone position on the procedure table. The lumbar area was prepped and draped in the usual sterile fashion. . Vital signs were closely monitored during the procedure .IV sedation was used during the procedure to decrease patients anxiety. Using AP and then oblique fluoroscopy, the "eye of the Davis dog" corresponding to the connection between the superior and transverse articular processes of the bilateral L4 and L5 as well as the sacral ala were identified, marked, and localized with 1% lidocaine. Subsequently, an 18 guage 150-mm radiofrequency cannula with a 10-mm active tip was advanced guided by fluoroscopy to the identified target at each site. Needle positioning was confirmed on AP, oblique and lateral fluoroscopy. Motor testing at 2.5 Hz was done with paraspinal muscle stimulation only, and no radicular symptoms down the legs. Then 1 mL of 4% lidocaine was injected in each site. Radiofrequency thermocoagulation at 80 degrees celsius for 90 seconds was then performed. Kaleva were removed. Sterile dressings were applied. COMPLICATIONS: No acute complications. DISPOSITION / PLANS: The patient was placed in a supine position and transferred to the recovery area in a stable condition for observation and was discharged from the recovery room after meeting discharge criteria. Home discharge instructions given to the patient by the staff. The patient will follow up in clinic in 4 weeks.
[2020-05-07 08:57] VITALS: BP 148/83; PULSE 65
--- NOTE | 2020-05-07 09:18 | FL ---
Fluoroscopy HISTORY: Pain 0.32 minutes fluoroscopy time supplied to the referring clinician. 7 intraoperative C-arm images doc ument the procedure. See dictated report from anesthesia.
== END ==
LOC: ORPAIN 07:18
PROVIDERS: ATTEND Anesthesiology
DX: M47.816 Spondylosis without myelopathy or radiculopathy, lumbar region (principal); E11.9 Type 2 diabetes mellitus without complications; Z88.1 Allergy status to other antibiotic agents; Z88.8 Allergy status to other drugs, medicaments and biological substances; Z98.890 Other specified postprocedural states
CPT/HCPCS: 80053; 83615; 81001; 87086; 87077; 87186; 64635; 64636; J2001 ×2; J2250; J3010; 99152; 99153

== ENCOUNTER 2020-06-22 08:31 | Inpatient (IN) | payer MEDICARE, OTHER ==
--- NOTE | 2020-06-22 08:54 | ED ---
General Adult HPI - General Source: patient, RN notes reviewed Mode of arrival: ambulatory Limitations: no limitations <Enrique Goodrich - Last Filed: 06/22/20 10:05> <Rai Mcfadden - Last Filed: 06/22/20 10:34> - General Chief complaint: Upper Respiratory Infection Stated complaint: NASEEM,Weakness Time Seen by Provider: 06/22/20 08:40 - History of Present Illness Initial comments: 70-year-old female presents emergency Department with chief complaint of generalized weakness, bodyaches, chills. She states she has slight cough last few days. Patient states she feels like she has the flu. Patient states she has mild shortness of breath related to her asthmasignificant wheezing. Denies any chest pain, chest pressure no headache or dizziness currently. Patient's had no GI symptoms including nausea, vomiting diarrhea. No sick contacts. (Enrique Goodrich) - Related Data Home Medications Medication Instructions Recorded Confirmed Simvastatin [Zocor] 80 mg PO HS 03/21/14 05/06/20 Ergocalciferol [Vitamin D2 50,000 unit PO MO 10/09/14 05/06/20 (DRISDOL)] Levothyroxine Sodium [Synthroid] 150 mcg PO QAM 10/09/14 05/06/20 Glimepiride [Amaryl] 1 mg PO AC-BRKFST 10/08/15 05/06/20 rOPINIRole HCL [Requip] 1.5 mg PO HS 08/04/17 05/06/20 Cyanocobalamin (Vitamin B-12) 1,000 mcg PO MOWEFR 08/22/18 05/06/20 [Vitamin B-12] HYDROcodone/APAP 10-325MG [[place] 1 tab PO Q4H PRN 08/22/18 05/06/20 10-325] lisinopriL [Zestril] 5 mg PO DAILY@1200 08/22/18 05/06/20 Fluticasone/Salmeterol [Advair 1 puff INHALATION RT-BID 09/12/18 05/06/20 250-50 Diskus] Ipratropium-Albuterol Nebulize 3 ml INHALATION RT-QID PRN 07/03/19 05/06/20 [Duoneb 0.5 mg-3 mg/3 ml Soln] Multivitamins, Thera [Multivitamin 1 tab PO DAILY 07/03/19 05/06/20 (formulary)] Pantoprazole [Protonix] 40 mg PO DAILY PRN 07/03/19 05/06/20 Calcium Carbonate [Calcium] 600 mg PO BID 08/22/19 05/06/20 Zafirlukast 20 mg PO BID 08/22/19 05/06/20 carvediloL [Coreg] 3.125 mg PO BID 08/22/19 05/06/20 Previous Rx's Medication Instructions Recorded Meclizine [Antivert] 25 mg PO TID PRN #14 tab 08/07/18 Aspirin EC [Ecotrin Low Dose] 81 mg PO DAILY #0 09/13/19 Allergies Allergy/AdvReac Type Severity Reaction Status Date / Time allopurinol Allergy Itching Verified 06/22/20 08:38 cephalexin monohydrate Allergy Itching Verified 06/22/20 08:38 [From Keflex] clindamycin Allergy Itching Verified 06/22/20 08:38 NSAIDS (Non-Steroidal AdvReac Unknown STATES NO Verified 06/22/20 08:38 Anti-Inflamma NSAIDS DUE TO GASTRIC BYPASS ciprofloxacin [From Cipro] AdvReac Itching Verified 06/22/20 08:38 doxycycline AdvReac Itching Verified 06/22/20 08:38 Review of Systems ROS Other: All systems not noted in ROS Statement are negative. <Enrique Goodrich - Last Filed: 06/22/20 10:05> ROS Other: All systems not noted in ROS Statement are negative. <Rai Mcfadden - Last Filed: 06/22/20 10:34> ROS Statement: Those systems with pertinent positive or pertinent negative responses have been documented in the HPI. 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, colectomy d/t mass-wasn't told it was cancerous, ischemic heart disease, NIDDM, deaf/chronic otitis media L ear, Deaf L ear, chronic low back/neck pain, vertigo, L hand NT R/T hx L wrist fx, RLS, varicosities, possible IBS/colitis/chrohn's per pt in the past, benign colon polyps, uses C-PAP, hypothyroid, sinus allergies, eczema, iron anemia with iron infusion, vertigo, seasonal allergies, recent stomach discomfort plans to discuss with dr odom History of Any Multi-Drug Resistant Organisms: None Reported Past Surgical History: Appendectomy, Bariatric Surgery, Bowel Resection, Cholecystectomy, Coronary Bypass/CABG, Heart Catheterization, Hernia Repair, Joint Replacement, Orthopedic Surgery, Tubal Ligation Additional Past Surgical History / Comment(s): 09/29/18 removal R ear ventilation tube, R tympanomastiodectomy, CABG x1 vessel (1992), bilateral shoulder surgery/ rt shoulder rotator cuff, bilateral carpal tunnel releases, L wrist surgery d/t injury, total L knee, lap banding, gastric bypass w/ lap band removal 2013, colonoscopy/benign polypectomy, R colectomy d/t mass, EGD, umbilical hernia repair, Rt Total Hip Past Anesthesia/Blood Transfusion Reactions: Motion Sickness Additional Past Anesthesia/Blood Transfusion Reaction / Comment(s): VERTIGO Past Psychological History: No Psychological Hx Reported Smoking Status: Former smoker Past Alcohol Use History: None Reported Past Drug Use History: None Reported - Past Family History Mother Additional Family Medical History / Comment(s): Pt states her mother never went to the doctor so she does not know of any medical problems. Mother lived to be 87yrs old. Father Additional Family Medical History / Comment(s): Father at the age of 67yrs, pt does not know cause of . Sister(s) Family Medical History: Cancer Additional Family Medical History / Comment(s): LUNG CA <Enrique Goodrich - Last Filed: 06/22/20 10:05> General Exam Limitations: no limitations General appearance: alert, in no apparent distress, other (Vitals reviewed, BP was noted to be 97/61 on triage though upon initial blood pressure in room 6 was 124/76) Head exam: Present: atraumatic, normocephalic, normal inspection Eye exam: Present: normal appearance, PERRL, EOMI. Absent: scleral icterus, conjunctival injection, periorbital swelling ENT exam: Present: normal exam, normal oropharynx, mucous membranes moist, TM's normal bilaterally Neck exam: Present: normal inspection, full ROM. Absent: tenderness, meningismus, lymphadenopathy Respiratory exam: Present: normal lung sounds bilaterally. Absent: respiratory distress, wheezes, rales, rhonchi, stridor Cardiovascular Exam: Present: regular rate, normal rhythm, normal heart sounds. Absent: systolic murmur, diastolic murmur, rubs, gallop, clicks <Enrique Goodrich - Last Filed: 06/22/20 10:05> Course <Rai Mcfadden - Last Filed: 06/22/20 10:34> Vital Signs 06/22/20 08:34 Temperature 98.7 F Pulse Rate 81 Respiratory 24 Rate Blood Pressure 97/61 O2 Sat by Pulse 97 Oximetry - Reevaluation(s) Reevaluation #1: 06/22/20 10:33 PA supervision: I personally evaluate this case patient did present with complaints of shortness of breath for 3 days he also has a history of asthma. No improvement was on treatment. Workup shows evidence of right lower lobe infiltrate consistent with pneumonia. The patient will benefit from inpatient treatment I did discuss the case with Dr. Odom. Patient will be admitted for inpatient treatment (Rai Mcfadden) Medical Decision Making - Lab Data Result diagrams: 06/22/20 Unknown 06/22/20 Unknown <Enrique Goodrich - Last Filed: 06/22/20 10:05> - Lab Data Result diagrams: 06/22/20 Unknown 06/22/20 Unknown <Rai Mcfadden - Last Filed: 06/22/20 10:34> - Medical Decision Making 70-year-old female presented for shortness of breath, fever or weakness. Patient's found her pneumonia. Patient's influenza and covid test is negative. Patient will be admitted for IV antibiotics, further monitoring (Enrique Goodrich) - Lab Data Lab Results 06/22/20 06/22/20 06/22/20 Range/Units Unknown Unknown Unknown WBC 6.2 (3.8-10.6) k/uL RBC 3.55 L (3.80-5.40) m/uL Hgb 11.8 (11.4-16.0) gm/dL Hct 37.3 (34.0-46.0) % MCV 105.0 H (80.0-100.0) fL MCH 33.2 (25.0-35.0) pg MCHC 31.6 (31.0-37.0) g/dL RDW 12.9 (11.5-15.5) % Plt Count 204 (150-450) k/uL Neutrophils % 63 % Lymphocytes % 19 % Monocytes % 12 % Eosinophils % 2 % Basophils % 1 % Neutrophils # 3.9 (1.3-7.7) k/uL Lymphocytes # 1.2 (1.0-4.8) k/uL Monocytes # 0.7 (0-1.0) k/uL Eosinophils # 0.1 (0-0.7) k/uL Basophils # 0.0 (0-0.2) k/uL Hypochromasia Slight Macrocytosis Slight PT 9.3 (9.0-12.0) sec INR 0.9 (<1.2) APTT 21.8 L (22.0-30.0) sec Sodium 136 L (137-145) mmol/L Potassium 4.4 (3.5-5.1) mmol/L Chloride 107 (98-107) mmol/L Carbon Dioxide 25 (22-30) mmol/L Anion Gap 4 mmol/L BUN 16 (7-17) mg/dL Creatinine 0.79 (0.52-1.04) mg/dL Est GFR (CKD-EPI)AfAm 90 (>60 ml/min/1.73 sqM) Est GFR (CKD-EPI)NonAf 78 (>60 ml/min/1.73 sqM) Glucose 96 (74-99) mg/dL Plasma Lactic Acid Broderick (0.7-2.0) mmol/L Calcium 8.9 (8.4-10.2) mg/dL Magnesium 2.0 (1.6-2.3) mg/dL Total Bilirubin 0.7 (0.2-1.3) mg/dL AST 24 (14-36) U/L ALT 17 (4-34) U/L Alkaline Phosphatase 68 (38-126) U/L Troponin I (0.000-0.034) ng/mL NT-Pro-B Natriuret Pep pg/mL Total Protein 5.7 L (6.3-8.2) g/dL Albumin 3.3 L (3.5-5.0) g/dL Coronavirus (PCR) (Not Detectd) Influenza Type A RNA (Not Detectd) Influenza Type B (PCR) (Not Detectd) 06/22/20 06/22/20 06/22/20 Range/Units Unknown Unknown Unknown WBC (3.8-10.6) k/uL RBC (3.80-5.40) m/uL Hgb (11.4-16.0) gm/dL Hct (34.0-46.0) % MCV (80.0-100.0) fL MCH (25.0-35.0) pg MCHC (31.0-37.0) g/dL RDW (11.5-15.5) % Plt Count (150-450) k/uL Neutrophils % % Lymphocytes % % Monocytes % % Eosinophils % % Basophils % % Neutrophils # (1.3-7.7) k/uL Lymphocytes # (1.0-4.8) k/uL Monocytes # (0-1.0) k/uL Eosinophils # (0-0.7) k/uL Basophils # (0-0.2) k/uL Hypochromasia Macrocytosis PT (9.0-12.0) sec INR (<1.2) APTT (22.0-30.0) sec Sodium (137-145) mmol/L Potassium (3.5-5.1) mmol/L Chloride (98-107) mmol/L Carbon Dioxide (22-30) mmol/L Anion Gap mmol/L BUN (7-17) mg/dL Creatinine (0.52-1.04) mg/dL Est GFR (CKD-EPI)AfAm (>60 ml/min/1.73 sqM) Est GFR (CKD-EPI)NonAf (>60 ml/min/1.73 sqM) Glucose (74-99) mg/dL Plasma Lactic Acid [place] 0.8 (0.7-2.0) mmol/L Calcium (8.4-10.2) mg/dL Magnesium (1.6-2.3) mg/dL Total Bilirubin (0.2-1.3) mg/dL AST (14-36) U/L ALT (4-34) U/L Alkaline Phosphatase (38-126) U/L Troponin I <0.012 (0.000-0.034) ng/mL NT-Pro-B Natriuret Pep 151 pg/mL Total Protein (6.3-8.2) g/dL Albumin (3.5-5.0) g/dL Coronavirus (PCR) (Not Detectd) Influenza Type A RNA (Not Detectd) Influenza Type B (PCR) (Not Detectd) 06/22/20 06/22/20 Range/Units Unknown Unknown WBC (3.8-10.6) k/uL RBC (3.80-5.40) m/uL Hgb (11.4-16.0) gm/dL Hct (34.0-46.0) % MCV (80.0-100.0) fL MCH (25.0-35.0) pg MCHC (31.0-37.0) g/dL RDW (11.5-15.5) % Plt Count (150-450) k/uL Neutrophils % % Lymphocytes % % Monocytes % % Eosinophils % % Basophils % % Neutrophils # (1.3-7.7) k/uL Lymphocytes # (1.0-4.8) k/uL Monocytes # (0-1.0) k/uL Eosinophils # (0-0.7) k/uL Basophils # (0-0.2) k/uL Hypochromasia Macrocytosis PT (9.0-12.0) sec INR (<1.2) APTT (22.0-30.0) sec Sodium (137-145) mmol/L Potassium (3.5-5.1) mmol/L Chloride (98-107) mmol/L Carbon Dioxide (22-30) mmol/L Anion Gap mmol/L BUN (7-17) mg/dL Creatinine (0.52-1.04) mg/dL Est GFR (CKD-EPI)AfAm (>60 ml/min/1.73 sqM) Est GFR (CKD-EPI)NonAf (>60 ml/min/1.73 sqM) Glucose (74-99) mg/dL Plasma Lactic Acid Broder[place] (0.7-2.0) mmol/L Calcium (8.4-10.2) mg/dL Magnesium (1.6-2.3) mg/dL Total Bilirubin (0.2-1.3) mg/dL AST (14-36) U/L ALT (4-34) U/L Alkaline Phosphatase (38-126) U/L Troponin I (0.000-0.034) ng/mL NT-Pro-B Natriuret Pep pg/mL Total Protein (6.3-8.2) g/dL Albumin (3.5-5.0) g/dL Coronavirus (PCR) Not Detected (Not Detectd) Influenza Type A RNA Not Detected (Not Detectd) Influenza Type B (PCR) Not Detected (Not Detectd) Disposition <Enrique Goodrich - Last Filed: 06/22/20 10:05> <Rai Mcfadden - Last Filed: 06/22/20 10:34> Clinical Impression: Pneumonia, Dyspnea, Weakness, Asthma Disposition: ADMITTED IP TO THIS HOSP Condition: Fair Referrals: Padilla Odom MD [Primary Care Provider] - 1-2 days
[2020-06-22 09:06] LABS: Basophils % (A) 1 %; Eosinophils # (A) 0.1 k/uL (0-0.7); Eosinophils % (A) 2 %; HCT 37.3 % (34.0-46.0); HGB 11.8 gm/dL (11.4-16.0); Hypochromasia Slight; Lymphocytes # (A) 1.2 k/uL (1.0-4.8); Lymphocytes % (A) 19 %; MCH 33.2 pg (25.0-35.0); MCHC 31.6 g/dL (31.0-37.0); Macrocytosis Slight; Mean Platelet Volume 7.1; Monocytes # (A) 0.7 k/uL (0-1.0); Monocytes % (A) 12 %; Neutrophils # (A) 3.9 k/uL (1.3-7.7); Neutrophils % (A) 63 %; Platelet Count 204 k/uL (150-450); RBC 3.55 m/uL (3.80-5.40); RDW 12.9 % (11.5-15.5); WBC 6.2 k/uL (3.8-10.6)
[2020-06-22 09:22] LABS: INR 0.9 (<1.2); Prothrombin Time 9.3 sec (9.0-12.0)
[2020-06-22 09:30] LABS: Albumin 3.3 g/dL (3.5-5.0); Calcium 8.9 mg/dL (8.4-10.2); Potassium 4.4 mmol/L (3.5-5.1); Total Bilirubin 0.7 mg/dL (0.2-1.3); Total Protein 5.7 g/dL (6.3-8.2)
--- NOTE | 2020-06-22 09:38 | XR ---
EXAMINATION TYPE: XR chest 2V DATE OF EXAM: 06/22/2020 CLINICAL HISTORY: difficulty breathing. TECHNIQUE: Frontal and lateral view of the chest. COMPARISON: 05/09/2020 chest radiograph FINDINGS: Sternotomy wires. Redemonstrated cardiomegaly. There is focal right perihilar airspace opa city. No pleural effusion, or pneumothorax seen. Right shoulder arthroplasty incompletely visualized. IMPRESSION: Focal right perihilar airspace opacity, most likely pneumonia.
[2020-06-22 09:50] LABS: Partial Thromboplastin Time 21.8 sec (22.0-30.0)
[2020-06-22] MEDS ORDERED: PIPERACILLIN-TAZOBACTAM 3.375 GM in SODIUM CHLORIDE 0.9% 100 ML IVPB STA (10:00)
[2020-06-22] MEDS ORDERED: PNEUMONIA PROTOCOL UTILIZED 1 EACH MISC PO PRN (10:07)
[2020-06-22] MEDS ORDERED: AZITHROMYCIN 500 MG in SODIUM CHLORIDE 0.9% 250 ML IVPB STA (10:07)
[2020-06-22] MEDS ORDERED: MECLIZINE 25 MG TAB PO PRN (11:10)
[2020-06-22 12:32] LABS: Glucose,Whole Blood 112 mg/dL (75-99)
[2020-06-22] MEDS: HYDROcodone/APAP 10-325MG 1 EACH TAB PO PRN ×3 (12:41→21:34)
[2020-06-22] MEDS: lisinopriL 5 MG TAB PO SCH (12:41)
[2020-06-22] MEDS: IPRATROPIUM-ALBUTEROL 3 ML NEB INHALATION PRN ×2 (15:36→19:46)
[2020-06-22 16:31] LABS: Glucose,Whole Blood 68 mg/dL (75-99)
[2020-06-22] MEDS: carvediloL 3.125 MG TAB PO SCH (16:37)
[2020-06-22] MEDS: INSULIN ASPART (NovoLOG) 100 UNIT/ML VIAL SQ SCH ×2 (16:43→21:24)
[2020-06-22] MEDS: guaiFENesin SYRUP 100MG/5ML 200 MG/10 ML CUP PO PRN (16:45)
[2020-06-22 16:48] LABS: Glucose,Whole Blood 68 mg/dL (75-99)
[2020-06-22 17:05] LABS: Glucose,Whole Blood 66 mg/dL (75-99)
[2020-06-22 17:21] LABS: Glucose,Whole Blood 109 mg/dL (75-99)
[2020-06-22] MEDS: PIPERACILLIN-TAZOBACTAM 3.375 GM in SODIUM CHLORIDE 0.9% 100 ML IVPB SCH (18:22)
[2020-06-22 21:18] LABS: Glucose,Whole Blood 76 mg/dL (75-99)
[2020-06-22] MEDS: CALCIUM CARBONATE 500 MG CHEWABLE PO SCH (21:33)
[2020-06-22] MEDS: ATORVASTATIN 40 MG TAB PO SCH (21:34)
[2020-06-22] MEDS: MONTELUKAST 10 MG TAB PO SCH (21:34)
--- NOTE | 2020-06-22 21:46 | HP ---
HISTORY AND PHYSICAL 70 year old white female with generalized weakness, body aches, chills, cough last few nights. She feels like she has a flu, but the flu test was negative. She is short of breath. She thinks her asthma is acting up. She was found to have community-acquired pneumonia. Denies any chest pain, pressure, headaches, or dizziness. No GI symptoms of nausea, vomiting, diarrhea. She has no sick contacts. HOME MEDICATIONS: Zocor 80 mg daily, vitamin D 50,000 units weekly, Synthroid 150 mcg daily, Amaryl 1 mg daily, Requip 1.5 q.h.s., [place] 10 q.4h p.r.n., Zestril 5 mg daily, Advair 250/50 one puff b.i.d., DuoNeb q.i.d., multivitamin daily, Protonix 40 mg daily, calcium carbonate 600 b.i.d., Xolair 20 b.i.d., Coreg 3.125 b.i.d.. ALLERGIES: ALLOPURINOL, KEFLEX, NSAIDS, CIPRO, DOXYCYCLINE. PAST MEDICAL HISTORY: Asthma, coronary artery disease, beta cell lymphoma, diabetes mellitus, GERD, deafness, hypertension, osteoarthritis, skin disorders, BiPAP, hypothyroidism, colectomy, ischemic heart disease, chronic neck and lumbar back pain, varicosities, IBS, Crohn's, hypothyroidism, sleep apnea. SURGERIES: Appendectomy, bariatric surgery, bowel resection, cholecystectomy, CABG surgery, heart catheterization, hernia repair, joint replacement, orthopedic surgery, tubal ligation, bilateral shoulder surgery, left wrist surgery, gastric bypass surgery, lap band. FAMILY HISTORY: Mother negative. Father negative. Sister lung cancer. PHYSICAL EXAMINATION: Vital signs stable. Afebrile. Cardiovascular S1, S2. LUNGS: Scattered rhonchi and wheeze, right side greater than left side. Hematology negative [place]. Psych: Fair mood and affect. NEUROLOGIC: Alert and oriented x3. Ophthalmologic: Pupils equal, round, reactive. NECK: Supple. No mass. Temp 98.7, pulse 81, respiratory 18 to 24, O2 97. ASSESSMENT: 1. Right lower lobe infiltrate with pneumonia. 2. Community-acquired pneumonia. 3. Acute hypoxemic respiratory distress. 4. History of beta cell lymphoma. 5. Diabetes. 6. Lumbar disc disease and neuropathy. PLAN: IV antibiotics, updraft treatments. Continue home medications. Negative troponin. Possible discharge home in the next few days if she improves. MMODL / IJN: [id number] /
[2020-06-23 01:19] LABS: Glucose,Whole Blood 124 mg/dL (75-99)
[2020-06-23] MEDS: HYDROcodone/APAP 10-325MG 1 EACH TAB PO PRN ×5 (02:21→21:32)
[2020-06-23] MEDS: guaiFENesin SYRUP 100MG/5ML 200 MG/10 ML CUP PO PRN ×4 (02:22→21:32)
[2020-06-23] MEDS: PIPERACILLIN-TAZOBACTAM 3.375 GM in SODIUM CHLORIDE 0.9% 100 ML IVPB SCH ×3 (03:27→17:56)
[2020-06-23] MEDS: LEVOTHYROXINE 75 MCG TAB PO SCH (05:49)
[2020-06-23] MEDS: INSULIN ASPART (NovoLOG) 100 UNIT/ML VIAL SQ SCH ×4 (07:32→21:29)
--- NOTE | 2020-06-23 07:43 | XR ---
EXAMINATION TYPE: XR chest 1V portable DATE OF EXAM: 06/23/2020 HISTORY: Shortness of breath. COMPARISON: 06/22/2020 TECHNIQUE: Single view of the chest is submitted. FINDINGS: Demonstrated are scattered senescent parenchymal change. Improving right perihilar infiltrate. The heart is stable. Hilar and mediastinal structures are within normal limits. Degenerative changes are seen of the dorsal spine. IMPRESSION: 1. Improving right perihilar infiltrate.
[2020-06-23] MEDS: carvediloL 3.125 MG TAB PO SCH ×2 (07:44→17:05)
[2020-06-23] MEDS: MULTIVITAMINS, THERA 1 EACH TAB PO SCH (07:44)
[2020-06-23] MEDS: GLIMEPIRIDE 1 MG TAB PO SCH (07:44)
[2020-06-23] MEDS: ASPIRIN 81 MG PO SCH (07:44)
[2020-06-23] MEDS: FLUTICASONE 50MCG/SPRAY NASAL 16GM EA NOSTRIL SCH (07:44)
[2020-06-23] MEDS: CALCIUM CARBONATE 500 MG CHEWABLE PO SCH ×2 (07:44→21:32)
[2020-06-23 07:54] LABS: Glucose,Whole Blood 171 mg/dL (75-99)
[2020-06-23] MEDS: IPRATROPIUM-ALBUTEROL 3 ML NEB INHALATION PRN ×4 (07:58→19:59)
[2020-06-23] MEDS: SYMBICORT 80-4.5 MCG INHALER INHALATION SCH ×2 (09:43→12:53)
[2020-06-23] MEDS: AZITHROMYCIN 500 MG in SODIUM CHLORIDE 0.9% 250 ML IVPB SCH (11:11)
[2020-06-23 11:36] LABS: Glucose,Whole Blood 122 mg/dL (75-99)
[2020-06-23] MEDS: lisinopriL 5 MG TAB PO SCH (12:17)
[2020-06-23 16:38] LABS: Glucose,Whole Blood 88 mg/dL (75-99)
--- NOTE | 2020-06-23 18:45 | P.PN ---
Subjective Progress Note Date: 06/23/20 Principal diagnosis: Right lower lobe pneumonia Immunosuppressed status related to multiple medical comorbidities as well as recent non-Hodgkin's lymphoma status post chemotherapy Morbid obesity history of the gastric bypass Obstructive sleep apnea [id number] diabetes mellitus Hypertension hypertensive cardiovascular disease History of [place] Restless leg syndrome 06/23/2020, patient seen eval examined during the rounds cuff congestion shortness present improved denies any chest pain, still short of breath, severity slightly better than before, culture results and reports reviewed, sputum and blood cultures have been negative so far, patient remains afebrile, oxygen saturation is 94% room air, chest x-ray done today reviewed now showing improving right perihilar infiltrate, patient uses positive pressure ventilation at home for severe sleep apnea does not have CPAP machine from home, will use in hospital and put her on CPAP of 10 This is a 70-year-old morbidly obese female with history of obstructive sleep apnea asthmatic bronchitis also has a history of severe restless leg syndrome, patient came into the hospital with 3-4 day history of ongoing chills fever intermittent cough which is predominantly dry nonproductive also have aches and pains, chest x-ray for history of the developing right lower lobe pneumonia, her covid 19 as well as influenza A and B are all negative, she is been admitted into the hospital for IV antibiotics and her other comorbidities, also including history of non-Hodgkin's lymphoma, other active medical problems include history of colectomy due to lymphoma ischemic heart disease diabetes history of weight loss surgery/gastric bypass used to smoke heavily but stopped several years ago Objective - Vital Signs Vital signs: Vital Signs Temp 98.0 F 06/23/20 15:00 Pulse 62 06/23/20 15:57 Resp 16 06/23/20 15:00 BP 122/64 06/23/20 15:00 Pulse Ox 94 L 06/23/20 15:00 Intake & Output 06/22/20 06/23/20 06/23/20 18:59 06:59 18:59 Output Total 5 Balance -5 Weight 130.181 kg Output: Urine 4 Stool 1 Other: Voiding Method Toilet # Voids 2 3 - Exam - Constitutional General appearance: disheveled, morbidly obese - EENT Eyes: EOMI, PERRLA Ears: bilateral: normal - Neck Carotids: bilateral: upstroke normal Thyroid: bilateral: normal size - Respiratory Respiratory: bilateral: diminished - Cardiovascular Rhythm: regular Heart sounds: normal: S1, S2 - Gastrointestinal General gastrointestinal: normal bowel sounds - Neurologic Neurologic: CNII-XII intact - Musculoskeletal Musculoskeletal: gait normal, generalized weakness, strength equal bilaterally - Psychiatric Psychiatric: A&O x's 3, appropriate affect, intact judgment & insight - Labs CBC & Chem 7: 06/22/20 Unknown 06/22/20 Unknown Labs: Abnormal Lab Results - Last 24 Hours (Table) 06/23/20 06/23/20 06/23/20 Range/Units 01:18 07:53 11:34 POC Glucose (mg/dL) 124 H 171 H 122 H (75-99) mg/dL Microbiology - Last 24 Hours (Table) 06/22/20 10:29 Blood Culture - Preliminary Blood No Growth after 24 hours 06/22/20 16:46 Gram Stain - Preliminary Sputum Sputum Culture - Preliminary Assessment and Plan Assessment: Right lower lobe pneumonia Immunosuppressed status related to multiple medical comorbidities as well as recent non-Hodgkin's lymphoma status post chemotherapy Morbid obesity history of the gastric bypass Obstructive sleep apnea [id number]-ralbwoaps diabetes mellitus Hypertension hypertensive cardiovascular disease History of [place] Restless leg syndrome Plan: Admit the patient into the hospital Broad-spectrum antibiotics will continue Zosyn every 8 hour Gentle rehydration Resume home medications DVT and peptic ulcer disease prophylaxis CPAP/BiPAP use at night and when necessary during the day can bring the machine from home, in the meantime we'll use CPAP of 10 each night and when necessary during the day Continue bronchodilator Observe patient off of steroids Continue Requip or restless leg syndrome Further recommendations pending plan of care as per clinical response of the patient Time with Patient: Greater than 30
[2020-06-23 21:20] LABS: Glucose,Whole Blood 86 mg/dL (75-99)
[2020-06-23] MEDS: ATORVASTATIN 40 MG TAB PO SCH (21:32)
[2020-06-23] MEDS: MONTELUKAST 10 MG TAB PO SCH (21:32)
[2020-06-24] MEDS: PIPERACILLIN-TAZOBACTAM 3.375 GM in SODIUM CHLORIDE 0.9% 100 ML IVPB SCH ×3 (02:03→19:36)
[2020-06-24] MEDS: HYDROcodone/APAP 10-325MG 1 EACH TAB PO PRN ×4 (05:11→19:36)
[2020-06-24] MEDS: LEVOTHYROXINE 75 MCG TAB PO SCH (05:11)
[2020-06-24] MEDS: guaiFENesin SYRUP 100MG/5ML 200 MG/10 ML CUP PO PRN (05:11)
[2020-06-24 07:25] LABS: Glucose,Whole Blood 119 mg/dL (75-99)
[2020-06-24] MEDS: SYMBICORT 80-4.5 MCG INHALER INHALATION SCH (07:29)
--- NOTE | 2020-06-24 07:38 | PN ---
PROGRESS NOTE This 70-year-old white female, right lower lobe pneumonia, immunosuppressed due to recent non-Hodgkin's beta cell lymphoma, status post chemotherapy, morbid obesity, obstructive sleep apnea, hypertension, diabetes mellitus. Patient chronic pain syndrome. The patient is greatly improved. She is wearing a sleep apnea mask, BiPAP at night. She is responding to antibiotics. She is breathing better. LUNGS: Clear. CARDIOVASCULAR: S1, S2. ABDOMEN: Soft. NEUROLOGIC: Cranial nerves are intact. PSYCH: Fair mood and affect. ASSESSMENT: 1. Right lower lobe pneumonia. 2. Immunosuppression due to non-Hodgkin's lymphoma. 3. Obstructive sleep apnea. 4. Morbid obesity. 5. Diabetes mellitus. 6. Hypertension. 7. Restless legs syndrome. Continue on current antibiotics. Possible discharge home in the next 24 to 48 hours if she is greatly improving. Rehydrate her. Resume home medications. Prognosis guarded. Will taker her off steroids. Continue bronchodilators. Possible discharge home tomorrow. MMODL / IJN: [id number] /
[2020-06-24] MEDS: INSULIN ASPART (NovoLOG) 100 UNIT/ML VIAL SQ SCH ×4 (08:07→20:27)
[2020-06-24] MEDS: GLIMEPIRIDE 1 MG TAB PO SCH (08:15)
[2020-06-24] MEDS: ASPIRIN 81 MG PO SCH (08:15)
[2020-06-24] MEDS: carvediloL 3.125 MG TAB PO SCH ×2 (08:15→17:19)
[2020-06-24] MEDS: CALCIUM CARBONATE 500 MG CHEWABLE PO SCH ×2 (08:15→19:36)
[2020-06-24] MEDS: CYANOCOBALAMIN 500 MCG TAB PO SCH (08:15)
[2020-06-24] MEDS: MULTIVITAMINS, THERA 1 EACH TAB PO SCH (08:15)
[2020-06-24] MEDS: FLUTICASONE 50MCG/SPRAY NASAL 16GM EA NOSTRIL SCH (08:16)
[2020-06-24] MEDS ORDERED: ERGOCALCIFEROL 50,000 UNIT CAP PO SCH (09:00)
--- NOTE | 2020-06-24 11:22 | P.PN ---
Subjective Progress Note Date: 06/24/20 Principal diagnosis: Right lower lobe pneumonia Immunosuppressed status related to multiple medical comorbidities as well as recent non-Hodgkin's lymphoma status post chemotherapy Morbid obesity history of the gastric bypass Obstructive sleep apnea Kwn-pfycsht-zcvvvufzy diabetes mellitus Hypertension hypertensive cardiovascular disease History of [place] Restless leg syndrome 06/24/2020, patient seen eval examined during the rounds labs reviewed medications reviewed, remains afebrile, oxygen saturation 98%, cough congestion shortness breath continued to improve, patient used to CPAP machine at night 06/23/2020, patient seen eval examined during the rounds cuff congestion shortness present improved denies any chest pain, still short of breath, severity slightly better than before, culture results and reports reviewed, sputum and blood cultures have been negative so far, patient remains afebrile, oxygen saturation is 94% room air, chest x-ray done today reviewed now showing improving right perihilar infiltrate, patient uses positive pressure ventilation at home for severe sleep apnea does not have CPAP machine from home, will use in hospital and put her on CPAP of 10 This is a 70-year-old morbidly obese female with history of obstructive sleep apnea asthmatic bronchitis also has a history of severe restless leg syndrome, patient came into the hospital with 3-4 day history of ongoing chills fever intermittent cough which is predominantly dry nonproductive also have aches and pains, chest x-ray for history of the developing right lower lobe pneumonia, her covid 19 as well as influenza A and B are all negative, she is been admitted into the hospital for IV antibiotics and her other comorbidities, also including history of non-Hodgkin's lymphoma, other active medical problems include history of colectomy due to lymphoma ischemic heart disease diabetes history of weight loss surgery/gastric bypass used to smoke heavily but stopped several years ago Objective - Vital Signs Vital signs: Vital Signs Temp 97.9 F 06/24/20 07:00 Pulse 58 L 06/24/20 07:00 Resp 17 06/24/20 07:00 BP 152/74 06/24/20 07:00 Pulse Ox 98 06/24/20 07:00 Intake & Output 06/23/20 06/24/20 06/24/20 18:59 06:59 18:59 Output Total 5 Balance -5 Output: Urine 4 Stool 1 Other: Voiding Method Toilet # Voids 3 # Bowel Movements 1 - Exam - Constitutional General appearance: disheveled, morbidly obese - EENT Eyes: EOMI, PERRLA Ears: bilateral: normal - Neck Carotids: bilateral: upstroke normal Thyroid: bilateral: normal size - Respiratory Respiratory: bilateral: diminished - Cardiovascular Rhythm: regular Heart sounds: normal: S1, S2 - Gastrointestinal General gastrointestinal: normal bowel sounds - Neurologic Neurologic: CNII-XII intact - Musculoskeletal Musculoskeletal: gait normal, generalized weakness, strength equal bilaterally - Psychiatric Psychiatric: A&O x's 3, appropriate affect, intact judgment & insight - Labs CBC & Chem 7: 06/22/20 Unknown 06/22/20 Unknown Labs: Abnormal Lab Results - Last 24 Hours (Table) 06/23/20 06/24/20 Range/Units 11:34 07:24 POC Glucose (mg/dL) 122 H 119 H (75-99) mg/dL Microbiology - Last 24 Hours (Table) 06/22/20 10:29 Blood Culture - Preliminary Blood No Growth after 24 hours Assessment and Plan Assessment: Right lower lobe pneumonia Immunosuppressed status related to multiple medical comorbidities as well as recent non-Hodgkin's lymphoma status post chemotherapy Morbid obesity history of the gastric bypass Obstructive sleep apnea Bqw-rpvtmae-fdayltgnn diabetes mellitus Hypertension hypertensive cardiovascular disease History of [place] Restless leg syndrome Plan: Admit the patient into the hospital Broad-spectrum antibiotics will continue Zosyn every 8 hour Gentle rehydration Resume home medications DVT and peptic ulcer disease prophylaxis CPAP/BiPAP use at night and when necessary during the day can bring the machine from home, in the meantime we'll use CPAP of 10 each night and when necessary during the day Continue bronchodilator Observe patient off of steroids Continue Requip or restless leg syndrome Further recommendations pending plan of care as per clinical response of the patient Time with Patient: Greater than 30
[2020-06-24 11:33] LABS: Glucose,Whole Blood 105 mg/dL (75-99)
[2020-06-24] MEDS: AZITHROMYCIN 500 MG in SODIUM CHLORIDE 0.9% 250 ML IVPB SCH (11:46)
[2020-06-24] MEDS: lisinopriL 5 MG TAB PO SCH (11:50)
[2020-06-24 16:52] LABS: Glucose,Whole Blood 83 mg/dL (75-99)
[2020-06-24] MEDS: MONTELUKAST 10 MG TAB PO SCH (19:36)
[2020-06-24] MEDS: ATORVASTATIN 40 MG TAB PO SCH (19:36)
[2020-06-24 20:28] LABS: Glucose,Whole Blood 85 mg/dL (75-99)
--- NOTE | 2020-06-24 22:37 | PN ---
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 The patient has been breathing better every day. Blood pressure 150s over 70s, pulse 58, respiratory rate 16 to 18. CARDIOVASCULAR: S1, S2. LUNGS: Clear. GI: Soft. HEMATOLOGY: Negative Homans. ENDOCRINE: BMI is over 40. ASSESSMENT: 1. Right lower lobe pneumonia. 2. Immunocompromised status. 3. Beta cell lymphoma. 4. Morbid obesity. 5. Obstructive sleep apnea. 6. Ajb-wiiyvdi-rqenppihl diabetes mellitus. 7. Hypertensive heart disease. PLAN: Bronchodilators, steroids, Requip for restless legs syndrome. CPAP at night. We can possibly discharge her home in the next day or so, as she is clinically improving. MMODL / IJN: [id number] /
--- NOTE | 2020-06-25 00:10 | CT ---
EXAMINATION TYPE: CT chest wo con DATE OF EXAM: 06/24/2020 COMPARISON: PET CT scan 01/26/2020 HISTORY: pneumonia CT DLP: 779.7 mGycm Automated exposure control for dose reduction was used. Images obtained from the thoracic inlet to the diaphragm without contrast. There is some patchy consolidation in the posterior right lower lobe that is somewhat rounded and claudy sures 6 cm. The left lung is clear. There is no pleural effusion. Heart is slightly enlarged. There i s no pericardial effusion. Thoracic aorta shows mild atheromatous change. There are no hilar masses. There is no pleural effusion. There is spurring in the thoracic spine. Sternum is intact. There are sternal wires. Upper abdominal soft tissues are intact. There are clips from gastric bariatric surgery. IMPRESSION: There is somewhat rounded area of nodular and airspace and interstitial infiltrate in the right lower lobe that is new compared to old exam and consistent with bronchopneumonia.
[2020-06-25] MEDS: PIPERACILLIN-TAZOBACTAM 3.375 GM in SODIUM CHLORIDE 0.9% 100 ML IVPB SCH ×3 (02:14→20:53)
[2020-06-25] MEDS: LEVOTHYROXINE 75 MCG TAB PO SCH (05:32)
[2020-06-25] MEDS: HYDROcodone/APAP 10-325MG 1 EACH TAB PO PRN ×5 (05:32→20:52)
--- NOTE | 2020-06-25 06:31 | PN ---
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 Because of this, Dr. Medrano, Infectious Disease, wants her to stay overnight and get a CT scan of her chest. Saturating 98 on room air. CARDIOVASCULAR: S1, S2. LUNGS: Are clear. Some mild wheeze. ENDOCRINE: BMI is over 30. HEMATOLOGY: Negative Homans. ASSESSMENT: 1. Right lower lobe pneumonia, Aspergillosis. 2. Immunosuppressed status due to cell lymphoma. 3. Morbid obesity. 4. Obstructive sleep apnea. 5. Yyq-wotsyxn-zqbkycdko diabetes mellitus. 6. Hypertensive cardiovascular disease. 7. History of myocardial infarction. 8. Restless legs syndrome. Maybe have to alter medicines to treat aspergillosis. Wait for Dr. Medrano's recommendation. MMODL / IJN: [id number] /
[2020-06-25] MEDS: INSULIN ASPART (NovoLOG) 100 UNIT/ML VIAL SQ SCH ×4 (07:22→20:46)
[2020-06-25 07:26] LABS: Glucose,Whole Blood 85 mg/dL (75-99)
[2020-06-25] MEDS: lisinopriL 5 MG TAB PO SCH ×2 (07:27→11:16)
[2020-06-25] MEDS: MULTIVITAMINS, THERA 1 EACH TAB PO SCH (07:27)
[2020-06-25] MEDS: carvediloL 3.125 MG TAB PO SCH ×2 (07:27→17:38)
[2020-06-25] MEDS: ASPIRIN 81 MG PO SCH (07:28)
[2020-06-25] MEDS: FLUTICASONE 50MCG/SPRAY NASAL 16GM EA NOSTRIL SCH (07:28)
[2020-06-25] MEDS: CALCIUM CARBONATE 500 MG CHEWABLE PO SCH ×2 (07:28→20:52)
[2020-06-25] MEDS: GLIMEPIRIDE 1 MG TAB PO SCH (07:35)
[2020-06-25] MEDS: ACETAMINOPHEN TAB 325 MG TAB PO PRN (07:35)
[2020-06-25 08:06] LABS: Basophils % (A) 0 %; Eosinophils # (A) 0.1 k/uL (0-0.7); Eosinophils % (A) 2 %; HCT 41.5 % (34.0-46.0); Lymphocytes # (A) 1.3 k/uL (1.0-4.8); Lymphocytes % (A) 28 %; MCH 32.4 pg (25.0-35.0); MCHC 31.4 g/dL (31.0-37.0); MCV 103.4 fL (80.0-100.0); Macrocytosis Slight; Mean Platelet Volume 7.4; Monocytes # (A) 0.4 k/uL (0-1.0); Monocytes % (A) 8 %; Neutrophils # (A) 2.7 k/uL (1.3-7.7); Neutrophils % (A) 58 %; Platelet Count 266 k/uL (150-450); RBC 4.02 m/uL (3.80-5.40); RDW 12.9 % (11.5-15.5); WBC 4.7 k/uL (3.8-10.6)
[2020-06-25] MEDS: SYMBICORT 80-4.5 MCG INHALER INHALATION SCH (08:07)
[2020-06-25] MEDS: guaiFENesin SYRUP 100MG/5ML 200 MG/10 ML CUP PO PRN ×3 (10:03→20:58)
[2020-06-25 10:51] LABS: African American GFR (CKD) 87.8 (60.0-200.0); Albumin 4.3 g/dL (3.80-4.90); Albumin/Globulin Ratio 2.26 (1.60-3.17); Anion Gap 9.3 mmol/L (4.00-12.00); BUN/Creat Ratio 13.75 Ratio (12.00-20.00); Calcium 10.2 mg/dL (8.7-10.3); Carbon Dioxide 25.7 mmol/L (21.6-31.8); Globulin 1.9 g/dL (1.6-3.3); Non-African American GFR(CKD) 75.8 (60.0-200.0); Potassium 4.6 mmol/L (3.5-5.5); Total Bilirubin 0.4 mg/dL (0.2-1.2); Total Protein 6.2 g/dL (6.2-8.2)
--- NOTE | 2020-06-25 11:03 | CONS ---
CONSULTATION DATE OF SERVICE: 06/24/2020. REASON FOR CONSULTATION: Positive sputum culture with in this patient. HISTORY OF PRESENT ILLNESS: The patient is a 70-year-old female with a past medical history admitted to the hospital on 06/22/2020 for evaluation of generalized weakness, body aches and chills. The patient also complaining of shortness of breath and she did have some cough which has been mild to moderate intensity with occasional sputum. No hemoptysis. No chest pain. No nausea, no vomiting. No abdominal pain or diarrhea. With these symptoms the patient was evaluated by the ER physician. On arrival to the ER, the patient has been afebrile and no fever has been recorded. Subsequently, the patient did have a normal white count on presentation to the hospital and none has been repeated since then. Did have a normal kidney function. Liver enzymes are normal. The patient did have Dominique PCR which came back negative. Influenza PCR has been negative as well. The patient did have a chest x-ray, focal right perihilar is likely pneumonia in this patient who has been treated with azithromycin and Zosyn. The patient did have sputum cultures obtained, which is now showing Aspergillus species that prompted this Infectious Disease consultation. The patient did mention overall feeling better since being admitted to the hospital as far as the symptomatology is concerned. REVIEW OF SYSTEMS: Positive points have been mentioned in HPI. Rest of systems negative. PAST MEDICAL HISTORY: Significant for COPD, diabetes mellitus, gastroesophageal reflux disease, hyperlipidemia, hypertension, osteoarthritis, sleep apnea, hypothyroidism, non-Hodgkin lymphoma. PAST SURGICAL HISTORY: Appendectomy, bariatric surgery, bowel resection, cholecystectomy, coronary bypass grafting, heart catheterization, hernia repair, tubal ligation. SOCIAL HISTORY: Remote history of smoking, no drinking or drug use. FAMILY HISTORY: No pertinent findings were noticed. ALLERGIES: To multiple medications including CEPHALEXIN, CLINDAMYCIN, NONSTEROIDAL ANTI- INFLAMMATORY MEDICATION, ALLOPURINOL. MEDICATIONS: The patient is currently on Requip, Zosyn, Theragran, Singulair, Antivert, Zestril, Synthroid, NovoLog, Amaryl, Flonase, vitamin D, Coreg, and erythromycin, aspirin, DuoNeb and [place]. PHYSICAL EXAMINATION: Blood pressure 155/74 with a pulse of 55, temp 97.8, she is 94% on room air. General description is an elderly female, lying in bed in no distress. HEENT EXAMINATION: Shows no pallor or scleral icterus. Oral mucosa membrane is dry. NECK: Trachea central, no thyromegaly. LUNGS: Unlabored breathing, decreased breath sounds in the base, with no wheeze. HEART: S1, S2. Regular rate and rhythm. ABDOMEN: Soft, no tenderness. EXTREMITIES: No edema of the feet. SKIN: Examination no rash or mass palpable. NEUROLOGICAL: Patient is awake, alert, oriented. Mood and affect normal. LABS: Hemoglobin 11.8, white count 6.2, BUN of 16, creatinine 0.79. Liver enzymes are normal. Dominique and influenza PCR negative. Sputum respiratory species blood culture negative. Chest x-ray report as mentioned above. DIAGNOSTIC IMPRESSION: Patient admitted to hospital with increasing shortness of breath and cough and sputum production with evidence of right perihilar infiltrate concerning for pneumonia likely community-acquired. This patient seemed to have shown overall clinical improvement with Zosyn, Zithromax therapy; however, sputum showing Aspergillus, which may be more likely colonized rather than infected pathogen as the patient and the x-ray did show improvement without getting treatment for the same. PLAN: 1. We will obtain a CT of the chest without any contrast to better define the right perihilar pneumonia. 2. We will repeat a CBC, CRP, aspergillus galactomannan. 3. Continue the patient on Zosyn. No need for any further at this point. 4. We will follow on clinical condition and culture to further adjust medication if needed. Thank you for this consultation. Will follow this patient along with you. MMODL / IJN: [id number] /
[2020-06-25] MEDS: AZITHROMYCIN 500 MG in SODIUM CHLORIDE 0.9% 250 ML IVPB SCH (11:11)
[2020-06-25 12:01] LABS: Glucose,Whole Blood 72 mg/dL (75-99)
[2020-06-25 16:40] LABS: Glucose,Whole Blood 97 mg/dL (75-99)
--- NOTE | 2020-06-25 20:23 | P.PN ---
Subjective Progress Note Date: 06/25/20 Principal diagnosis: Right lower lobe pneumonia Immunosuppressed status related to multiple medical comorbidities as well as recent non-Hodgkin's lymphoma status post chemotherapy Morbid obesity history of the gastric bypass Obstructive sleep apnea Enf-ejplfnd-snrkjohbv diabetes mellitus Hypertension hypertensive cardiovascular disease History of [place] Restless leg syndrome June 25 2020, patient seen eval examined during the rounds labs reviewed medications reviewed care plan discussed, cough congestion shortness of breath significantly improved, sputum culture came back positive for Aspergillus however blood cultures have been negative, Aspergillus appeared to be more of a contamination, ID service is following as well given history of lymphoma in the past, patient is being treated with IV Zosyn, computed tomography scan of the chest shows right lower lobe nodular and interstitial infiltrate likely pneumonia 06/24/2020, patient seen eval examined during the rounds labs reviewed medications reviewed, remains afebrile, oxygen saturation 98%, cough congestion shortness breath continued to improve, patient used to CPAP machine at night 06/23/2020, patient seen eval examined during the rounds cuff congestion shortness present improved denies any chest pain, still short of breath, severity slightly better than before, culture results and reports reviewed, sputum and blood cultures have been negative so far, patient remains afebrile, oxygen saturation is 94% room air, chest x-ray done today reviewed now showing improving right perihilar infiltrate, patient uses positive pressure ventilation at home for severe sleep apnea does not have CPAP machine from home, will use in hospital and put her on CPAP of 10 This is a 70-year-old morbidly obese female with history of obstructive sleep apnea asthmatic bronchitis also has a history of severe restless leg syndrome, patient came into the hospital with 3-4 day history of ongoing chills fever intermittent cough which is predominantly dry nonproductive also have aches and pains, chest x-ray for history of the developing right lower lobe pneumonia, her covid 19 as well as influenza A and B are all negative, she is been admitted into the hospital for IV antibiotics and her other comorbidities, also including history of non-Hodgkin's lymphoma, other active medical problems include history of colectomy due to lymphoma ischemic heart disease diabetes history of weight loss surgery/gastric bypass used to smoke heavily but stopped several years ago Objective - Vital Signs Vital signs: Vital Signs Temp 97.8 F 06/25/20 15:00 Pulse 56 L 06/25/20 15:00 Resp 17 11/10/20 15:00 BP 147/61 06/25/20 15:00 Pulse Ox 94 L 06/25/20 15:00 Intake & Output 06/25/20 06/25/20 06/26/20 06:59 18:59 06:59 Other: Voiding Method Toilet # Voids 1 3 - Exam - Constitutional General appearance: disheveled, morbidly obese - EENT Eyes: EOMI, PERRLA Ears: bilateral: normal - Neck Carotids: bilateral: upstroke normal Thyroid: bilateral: normal size - Respiratory Respiratory: bilateral: diminished - Cardiovascular Rhythm: regular Heart sounds: normal: S1, S2 - Gastrointestinal General gastrointestinal: normal bowel sounds - Neurologic Neurologic: CNII-XII intact - Musculoskeletal Musculoskeletal: gait normal, generalized weakness, strength equal bilaterally - Psychiatric Psychiatric: A&O x's 3, appropriate affect, intact judgment & insight - Labs CBC & Chem 7: 06/25/20 07:13 06/25/20 07:13 Labs: Abnormal Lab Results - Last 24 Hours (Table) 06/25/20 06/25/20 Range/Units 07:13 12:00 MCV 103.4 H (80.0-100.0) fL POC Glucose (mg/dL) 72 L (75-99) mg/dL Microbiology - Last 24 Hours (Table) 06/22/20 10:29 Blood Culture - Preliminary Blood No Growth after 72 hours 06/22/20 16:46 Gram Stain - Final Sputum Sputum Culture - Final Aspergillus fumigatus Assessment and Plan Assessment: Right lower lobe pneumonia Immunosuppressed status related to multiple medical comorbidities as well as recent non-Hodgkin's lymphoma status post chemotherapy 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 Morbid obesity history of the gastric bypass Obstructive sleep apnea Jww-ciwmggw-riznjfuze diabetes mellitus Hypertension hypertensive cardiovascular disease History of [place] Restless leg syndrome Plan: Computed tomography scan of the chest reviewed IV Zosyn Gentle rehydration Continue home medications DVT and peptic ulcer disease prophylaxis CPAP/BiPAP use at night and when necessary during the day can bring the machine from home, in the meantime we'll use CPAP of 10 each night and when necessary during the day Continue bronchodilator Observe patient off of steroids Continue Requip or restless leg syndrome Further recommendations pending plan of care as per clinical response of the patient Time with Patient: Greater than 30
[2020-06-25 20:38] LABS: Glucose,Whole Blood 83 mg/dL (75-99)
[2020-06-25] MEDS: MONTELUKAST 10 MG TAB PO SCH (20:52)
[2020-06-25] MEDS: ATORVASTATIN 40 MG TAB PO SCH (20:53)
[2020-06-26] MEDS: HYDROcodone/APAP 10-325MG 1 EACH TAB PO PRN ×3 (03:33→14:01)
[2020-06-26] MEDS: PIPERACILLIN-TAZOBACTAM 3.375 GM in SODIUM CHLORIDE 0.9% 100 ML IVPB SCH ×2 (03:34→10:40)
--- NOTE | 2020-06-26 04:04 | PN ---
PROGRESS NOTE DATE OF SERVICE: 06/25/2020 REASON FOR FOLLOWUP: 1. Pneumonia. 2. Positive sputum culture with Aspergillus. INTERVAL HISTORY: The patient is currently afebrile. The patient is feeling better. She is breathing more comfortably. The patient's cough has decreased in intensity. No nausea, no vomiting. No abdominal pain or diarrhea. PHYSICAL EXAMINATION: Blood pressure 147/61 with a pulse of 56, temperature 97.8. She is 94% on room air. General description is an elderly female up in the chair in no distress. RESPIRATORY SYSTEM: Unlabored breathing, decreased intensity of breath sounds. No wheeze. HEART: S1, S2. Regular rate and rhythm. ABDOMEN: Soft, no tenderness. LABS: Hemoglobin is 13 with the white count 4.7, BUN of 11, creatinine 0.8. Sputum with Aspergillus fumigatus. The patient did have a CT of the chest rounded area of nodular airspace disease right lower lobe. DIAGNOSTIC IMPRESSION AND PLAN: Patient with right lower lobe pneumonia, possibly community acquired. Clinically not behaving as Aspergillus pneumonia in this patient clinically responded to Zithromax and Zosyn. We will plan on switch her over to oral Augmentin 875 b.i.d. for 2 weeks and recommend repeating a CT scan in about a month. If the patient did have overall resolution of this abnormality, no further workup. If no improvement, may need a bronchoscopy with biopsy. This was discussed with the admitting physician. NICOLASA / YEMI: [id number] /
--- NOTE | 2020-06-26 05:40 | PN ---
PROGRESS NOTE A 70-year-old white female with pneumonia, dyspnea, shortness of breath, Aspergillus on sputum culture. She is going to be continued with Zosyn. Discharge home on Augmentin in the morning. CARDIOVASCULAR: S1, S2. LUNGS: Clear. GI: Soft. HEMATOLOGY: Negative Homans. PSYCH: Fair mood and affect. ASSESSMENT: 1. Community-acquired pneumonia. 2. Beta cell lymphoma. 3. Chronic obstructive pulmonary disease. 4. Diastolic heart failure. Continue with IV Zosyn. Switch to oral Augmentin and discharge home tomorrow. MMODL / IJN: [id number] /
[2020-06-26] MEDS: LEVOTHYROXINE 75 MCG TAB PO SCH (06:02)
[2020-06-26] MEDS: ACETAMINOPHEN TAB 325 MG TAB PO PRN (06:02)
[2020-06-26 07:28] LABS: Glucose,Whole Blood 103 mg/dL (75-99)
[2020-06-26] MEDS: INSULIN ASPART (NovoLOG) 100 UNIT/ML VIAL SQ SCH ×2 (07:42→12:26)
[2020-06-26] MEDS: GLIMEPIRIDE 1 MG TAB PO SCH (07:50)
[2020-06-26] MEDS: CALCIUM CARBONATE 500 MG CHEWABLE PO SCH (07:50)
[2020-06-26] MEDS: ASPIRIN 81 MG PO SCH (07:50)
[2020-06-26] MEDS: MULTIVITAMINS, THERA 1 EACH TAB PO SCH (07:50)
[2020-06-26] MEDS: carvediloL 3.125 MG TAB PO SCH (07:50)
[2020-06-26] MEDS: CYANOCOBALAMIN 500 MCG TAB PO SCH (07:53)
[2020-06-26] MEDS: SYMBICORT 80-4.5 MCG INHALER INHALATION SCH (09:19)
[2020-06-26] MEDS: FLUTICASONE 50MCG/SPRAY NASAL 16GM EA NOSTRIL SCH (09:26)
[2020-06-26] MEDS: lisinopriL 5 MG TAB PO SCH (10:39)
[2020-06-26 10:54] LABS: Glucose,Whole Blood 71 mg/dL (75-99)
[2020-06-26] MEDS ORDERED: AZITHROMYCIN 500 MG TAB PO SCH (12:00)
--- NOTE | 2020-06-26 13:17 | PN ---
PROGRESS NOTE DATE OF SERVICE: 06/26/2020 REASON FOR FOLLOWUP: Pneumonia and positive sputum culture with aspergillus. INTERVAL HISTORY: The patient is currently afebrile. The patient is feeling better. Breathing comfortably. The patient denies having any chest pain, cough has decreased in intensity. No nausea, no vomiting. No abdominal pain. No diarrhea. Anxious to go home. PHYSICAL EXAMINATION: Blood pressure 152/79 with a pulse of 69, temperature is 97.8, she is 94% on room air. General description is an elderly female up in the bed in no distress. RESPIRATORY SYSTEM: Unlabored breathing, decreased breath sounds in the base, no wheeze. HEART: S1, S2. Regular rate and rhythm. ABDOMEN: Soft, no tenderness. LABS: No new labs have been obtained today. DIAGNOSTIC IMPRESSION AND PLAN: Patient with right-sided pneumonia, possibly community-acquired. Positive sputum cultures, which is more likely colonization as the patient seemed to have shown overall clinical improvement without getting treatment for the same. Plan is to finish therapy with oral Augmentin for another 10 days and repeat a CAT scan in about 3-4 weeks and if the abnormality has resolved, no further workup. If not, she will need a bronchoscopy and a biopsy. Questions and concerns were answered. MMODL / IJN: [id number] /
--- NOTE | 2020-06-26 14:11 | P.PN ---
Subjective Progress Note Date: 06/26/20 Principal diagnosis: Right lower lobe pneumonia Immunosuppressed status related to multiple medical comorbidities as well as recent non-Hodgkin's lymphoma status post chemotherapy Morbid obesity history of the gastric bypass Obstructive sleep apnea Xft-mujbmrr-pocwfoxja diabetes mellitus Hypertension hypertensive cardiovascular disease History of [place] Restless leg syndrome 06/26/2020, patient seen eval examined during the rounds cuff congestion shortness present improved significantly, patient remains on broad-spectrum antibiotics to be changed to by mouth, and likely will be discharged next 24 hours, status stable, remains afebrile June 25 2020, patient seen eval examined during the rounds labs reviewed medications reviewed care plan discussed, cough congestion shortness of breath significantly improved, sputum culture came back positive for Aspergillus how ever blood cultures have been negative, Aspergillus appeared to be more of a contamination, ID service is following as well given history of lymphoma in the past, patient is being treated with IV Zosyn, computed tomography scan of the chest shows right lower lobe nodular and interstitial infiltrate likely pneumonia 06/24/2020, patient seen eval examined during the rounds labs reviewed medications reviewed, remains afebrile, oxygen saturation 98%, cough congestion shortness breath continued to improve, patient used to CPAP machine at night 06/23/2020, patient seen eval examined during the rounds cuff congestion shortness present improved denies any chest pain, still short of breath, severity slightly better than before, culture results and reports reviewed, sputum and blood cultures have been negative so far, patient remains afebrile, oxygen saturation is 94% room air, chest x-ray done today reviewed now showing improving right perihilar infiltrate, patient uses positive pressure ventilation at home for severe sleep apnea does not have CPAP machine from home, will use in hospital and put her on CPAP of 10 This is a 70-year-old morbidly obese female with history of obstructive sleep apnea asthmatic bronchitis also has a history of severe restless leg syndrome, patient came into the hospital with 3-4 day history of ongoing chills fever intermittent cough which is predominantly dry nonproductive also have aches and pains, chest x-ray for history of the developing right lower lobe pneumonia, her covid 19 as well as influenza A and B are all negative, she is been admitted into the hospital for IV antibiotics and her other comorbidities, also including history of non-Hodgkin's lymphoma, other active medical problems include history of colectomy due to lymphoma ischemic heart disease diabetes history of weight loss surgery/gastric bypass used to smoke heavily but stopped several years ago Objective - Vital Signs Vital signs: Vital Signs Temp 97.8 F 06/26/20 07:00 Pulse 68 06/26/20 09:30 Resp 19 06/26/20 07:00 BP 152/79 06/26/20 07:00 Pulse Ox 94 L 06/26/20 07:00 Intake & Output 06/25/20 06/26/20 06/26/20 18:59 06:59 18:59 Intake Total 380 Balance 380 Intake: IV 20 Invasive Line 2 20 Oral 360 Other: Voiding Method Toilet # Voids 3 3 - Exam - Constitutional General appearance: disheveled, morbidly obese - EENT Eyes: EOMI, PERRLA Ears: bilateral: normal - Neck Carotids: bilateral: upstroke normal Thyroid: bilateral: normal size - Respiratory Respiratory: bilateral: diminished - Cardiovascular Rhythm: regular Heart sounds: normal: S1, S2 - Gastrointestinal General gastrointestinal: normal bowel sounds - Neurologic Neurologic: CNII-XII intact - Musculoskeletal Musculoskeletal: gait normal, generalized weakness, strength equal bilaterally - Psychiatric Psychiatric: A&O x's 3, appropriate affect, intact judgment & insight - Labs CBC & Chem 7: 06/25/20 07:13 06/25/20 07:13 Labs: Abnormal Lab Results - Last 24 Hours (Table) 06/26/20 06/26/20 Range/Units 07:26 10:53 POC Glucose (mg/dL) 103 H 71 L (75-99) mg/dL Microbiology - Last 24 Hours (Table) 06/22/20 10:29 Blood Culture - Preliminary Blood No Growth after 96 hours 06/22/20 16:46 Gram Stain - Final Sputum Sputum Culture - Final Aspergillus fumigatus Assessment and Plan Assessment: Right lower lobe pneumonia Immunosuppressed status related to multiple medical comorbidities as well as recent non-Hodgkin's lymphoma status post chemotherapy 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 Morbid obesity history of the gastric bypass Obstructive sleep apnea Hrt-sqzdqfq-ycunlzlny diabetes mellitus Hypertension hypertensive cardiovascular disease History of [place] Restless leg syndrome Plan: Computed tomography scan of the chest reviewed IV Zosyn Gentle rehydration Continue home medications DVT and peptic ulcer disease prophylaxis CPAP/BiPAP use at night and when necessary during the day can bring the machine from home, in the meantime we'll use CPAP of 10 each night and when necessary during the day Continue bronchodilator Observe patient off of steroids Continue Requip or restless leg syndrome Further recommendations pending plan of care as per clinical response of the patient Time with Patient: Greater than 30
[2020-06-26 15:21] VITALS: BP 157/85; PULSE 59; RESP 20; TEMP 98
== END 2020-06-26 15:44 | disposition home or self-care (01) | DRG 194 ==
LOC: EC 08:31 → 4SSUR 10:32
PROVIDERS: ADMIT Family Medicine; ATTEND Family Medicine
PROC: 5A09457 Assistance with Respiratory Ventilation, 24-96 Consecutive Hours, Continuous Positive Airway Pressure (ICD-10-PCS; principal; 2020-06-23)
DX: J18.9 Pneumonia, unspecified organism (principal); J44.0 Chronic obstructive pulmonary disease with (acute) lower respiratory infection; D84.9 Immunodeficiency, unspecified; C85.90 Non-Hodgkin lymphoma, unspecified, unspecified site; Z68.43 Body mass index [BMI] 50.0-59.9, adult; I50.32 Chronic diastolic (congestive) heart failure; K50.90 Crohn's disease, unspecified, without complications; I11.0 Hypertensive heart disease with heart failure; E11.42 Type 2 diabetes mellitus with diabetic polyneuropathy; Z20.828 Contact with and (suspected) exposure to other viral communicable diseases; E66.01 Morbid (severe) obesity due to excess calories; E78.5 Hyperlipidemia, unspecified; G47.33 Obstructive sleep apnea (adult) (pediatric); H91.92 Unspecified hearing loss, left ear; I25.10 Atherosclerotic heart disease of native coronary artery without angina pectoris; K21.9 Gastro-esophageal reflux disease without esophagitis; M19.90 Unspecified osteoarthritis, unspecified site; E03.9 Hypothyroidism, unspecified; G25.81 Restless legs syndrome; G89.4 Chronic pain syndrome; M51.36 Other intervertebral disc degeneration, lumbar region; R09.02 Hypoxemia; R06.03 Acute respiratory distress; I25.2 Old myocardial infarction; Z79.890 Hormone replacement therapy; Z79.84 Long term (current) use of oral hypoglycemic drugs; Z79.899 Other long term (current) drug therapy; Z79.82 Long term (current) use of aspirin; Z90.49 Acquired absence of other specified parts of digestive tract; Z87.19 Personal history of other diseases of the digestive system; Z95.1 Presence of aortocoronary bypass graft; Z98.84 Bariatric surgery status; Z98.51 Tubal ligation status; Z98.890 Other specified postprocedural states; Z86.010 Personal history of colon polyps; Z96.641 Presence of right artificial hip joint; Z87.891 Personal history of nicotine dependence; Z92.21 Personal history of antineoplastic chemotherapy; Z88.6 Allergy status to analgesic agent; Z88.1 Allergy status to other antibiotic agents; Z88.8 Allergy status to other drugs, medicaments and biological substances; Z80.1 Family history of malignant neoplasm of trachea, bronchus and lung
CPT/HCPCS: 36415; 71045; 71046; 71250; 80053; 83605; 83735; 83880; 84484; 85025; 85610; 85730; 87040; 87070; 87205; 87502; 87635; 93005; 94640; 94660; 96365; 96366; 96368; 99285

== ENCOUNTER → 2020-08-23 | Outpatient (CLI) | payer MEDICARE, OTHER ==
--- NOTE | 2020-08-23 13:02 | PE ---
EXAMINATION TYPE: PET CT fusion skull to thigh DATE OF EXAM: 08/23/2020 COMPARISON: Prior PET/CT January 26, 2020 and older studies HISTORY: Lymphoma progress study diagnosed in the abdomen 2018 completed chemotherapy 2018 TECHNIQUE: Following the intravenous administration of 11.31 mCi of F-18 FDG, whole body images are performed from the skull base to the midthigh. Images are reviewed on the computer in the coronal, a xial, and sagittal planes. Reconstructed rotating images are created on independent workstation and reviewed on the computer. A localization and attenuation correction CT is performed in conjunction with the PET scan. SCAN: Subsequent Scan FINDINGS: MEAN SUV MEDIASTINUM: 0.93 MEAN SUV LIVER: 2.76 SKULL BASE AND NECK: No new areas of abnormal hypermetabolic uptake. CHEST, MEDIASTINUM, AND HILAR REGION: No new areas of abnormal hypermetabolic uptake. ABDOMEN AND PELVIS: Normal excretion is redemonstrated. No new areas of abnormal hypermetabolic uptak e. OSSEOUS STRUCTURES: No new areas of abnormal hypermetabolic uptake. OTHER CT: Metallic hardware for right shoulder surgery causes streak artifact limiting evaluation at this level. Moderate calcified plaque bilateral carotid bulb level. Post CABG changes with mediastinal clips and sternal wires redemonstrated. Persistent cardiomegaly. E nlarged pulmonary arteries redemonstrated. Gastric bypass changes redemonstrated. Cholecystectomy clips are redemonstrated. Diverticula on the l eft and sigmoid colon. Metallic artifact from right hip arthroplasty causes streak artifact limiting evaluation of pelvic structures. IMPRESSION: No suspicious new or hypermetabolic adenopathy to suggest active neoplastic or lymphoma r ecurrence.
== END | disposition home or self-care (01) ==
LOC: RADPETMAIN 09:35
PROVIDERS: ATTEND Internal Medicine Hematology & Oncology
DX: C83.39 Diffuse large B-cell lymphoma, extranodal and solid organ sites (principal); E11.9 Type 2 diabetes mellitus without complications; Z92.21 Personal history of antineoplastic chemotherapy
CPT/HCPCS: 78815; A9552

== ENCOUNTER 2020-12-06 11:21 | Emergency (ER) | payer MEDICARE, OTHER ==
[2020-12-06 11:26] VITALS: TEMP 97.8
[2020-12-06 12:16] LABS: Basophils % (A) 0 %; Eosinophils # (A) 0.1 k/uL (0-0.7); Eosinophils % (A) 1 %; HGB 13.4 gm/dL (11.4-16.0); Lymphocytes # (A) 1.4 k/uL (1.0-4.8); Lymphocytes % (A) 19 %; MCH 32.7 pg (25.0-35.0); MCHC 33.4 g/dL (31.0-37.0); Monocytes # (A) 0.5 k/uL (0-1.0); Monocytes % (A) 6 %; Neutrophils % (A) 71 %; Platelet Count 257 k/uL (150-450); RBC 4.09 m/uL (3.80-5.40); RDW 13.5 % (11.5-15.5); WBC 7.1 k/uL (3.8-10.6)
--- NOTE | 2020-12-06 12:16 | XR ---
EXAMINATION TYPE: XR chest 2V DATE OF EXAM: 12/06/2020 COMPARISON: Chest x-ray 06/23/2020 HISTORY: Lower chest pain, increased moderate TECHNIQUE: Frontal and lateral views of the chest are obtained. FINDINGS: There is no focal air space opacity, pleural effusion, or pneumothorax seen. The cardiac silhouette size is within normal limits. The osseous structures are stable, there are overlying jesu ds, patient is post median sternotomy. Surgical clips present in the upper abdomen. There is thoracic spondylosis. IMPRESSION: No acute cardiopulmonary process.
[2020-12-06 12:29] LABS: Albumin 4.3 g/dL (3.5-5.0); Calcium 10.4 mg/dL (8.4-10.2); Potassium 3.8 mmol/L (3.5-5.1); Total Bilirubin 0.7 mg/dL (0.2-1.3); Total Protein 6.7 g/dL (6.3-8.2)
[2020-12-06 12:32] LABS: Prothrombin Time 10.5 sec (9.0-12.0)
--- NOTE | 2020-12-06 12:52 | ED ---
General Adult HPI - General Chief complaint: Abdominal Pain Stated complaint: ABDOMINAL PAIN Time Seen by Provider: 12/06/20 11:31 Source: patient Mode of arrival: ambulatory Limitations: no limitations - History of Present Illness Initial comments: 70-year-old female presenting today for chief complaint of abdominal pain diarrhea. Patient states she has had some diarrhea for the past few days as well as some upper abdominal pain. Patient states is very mild along the upper abdomen. Patient sates she's had previous cholecystectomy. Patient has a fevers chills general malaise she denies any chest pain pressure or shortness of breath. She doesn't appear deep inspiration she denies leg swelling Pain or hemoptysis. Patient states she when to her PCP who took her weight and told her that she had gained to omuch and he was concerned that the abdominal pain was due to "water weight". Pt denies dyspnea, leg swelling/edema or difficulty lying flat. pt appears well nontoxic in no acute distress. - Related Data Home Medications Medication Instructions Recorded Confirmed Simvastatin [Zocor] 80 mg PO HS 03/21/14 06/22/20 Ergocalciferol [Vitamin D2 50,000 unit PO MO 10/09/14 06/22/20 (DRISDOL)] Levothyroxine Sodium [Synthroid] 150 mcg PO DAILY 10/09/14 06/22/20 Glimepiride [Amaryl] 1 mg PO DAILY 10/08/15 06/22/20 Cyanocobalamin (Vitamin B-12) 1,000 mcg PO MOWEFR 08/22/18 06/22/20 [Vitamin B-12] HYDROcodone/APAP 10-325MG [Sophia 1 tab PO Q4H PRN 08/22/18 06/22/20 10-325] lisinopriL [Zestril] 5 mg PO DAILY@1200 08/22/18 06/22/20 Fluticasone/Salmeterol [Advair 2 puff INHALATION RT-DAILY 09/12/18 06/22/20 250-50 Diskus] Multivitamins, Thera [Multivitamin 1 tab PO DAILY 07/03/19 06/22/20 (formulary)] Calcium Carbonate [Calcium] 600 mg PO BID 08/22/19 06/22/20 Zafirlukast 20 mg PO BID 08/22/19 06/22/20 carvediloL [Coreg] 3.125 mg PO BID 08/22/19 06/22/20 Fluticasone Nasal [place] [Flonase 1 spray EA NOSTRIL DAILY 06/22/20 06/22/20 Nasal [place]] rOPINIRole HCL [Requip] 2 mg PO HS 06/22/20 06/22/20 Previous Rx's Medication Instructions Recorded Meclizine [Antivert] 25 mg PO TID PRN #14 tab 08/07/18 Aspirin EC [Ecotrin Low Dose] 81 mg PO DAILY #0 09/13/19 Amoxic-Pot Clav 875-125Mg 1 tab PO Q12HR 10 Days #20 tab 06/26/20 [Augmentin 875-125] Allergies Allergy/AdvReac Type Severity Reaction Status Date / Time allopurinol Allergy Itching Verified 12/06/20 11:26 cephalexin monohydrate Allergy Itching Verified 12/06/20 11:26 [From Keflex] clindamycin Allergy Itching Verified 12/06/20 11:26 NSAIDS (Non-Steroidal AdvReac Unknown STATES NO Verified 12/06/20 11:26 Anti-Inflamma NSAIDS DUE TO GASTRIC BYPASS ciprofloxacin [From Cipro] AdvReac Itching Verified 12/06/20 11:26 doxycycline AdvReac Itching Verified 12/06/20 11:26 Review of Systems ROS Statement: Those systems with pertinent positive or pertinent negative responses have been documented in the HPI. ROS Other: All systems not noted in ROS Statement are negative. Past Medical History Past Medical History: Asthma, Coronary Artery Disease (CAD), Cancer, COPD, D iabetes Mellitus, GERD/Reflux, Hearing Disorder / Deafness, Hyperlipidemia, Hypertension, Musculoskeletal Disorder, Osteoarthritis (OA), Skin Disorder, Sleep Apnea/CPAP/BIPAP, Thyroid Disorder Additional Past Medical History / Comment(s): 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/bradycardia during chemo, colectomy d/t mass-wasn't told it was cancerous, ischemic heart disease, NIDDM, deaf/chronic otitis media L ear, Deaf L ear, chronic low back/neck pain, vertigo, L hand NT R/T hx L wrist fx, RLS, varicosities, possible IBS/colitis/chrohn's per pt in the past, benign colon polyps, uses C-PAP, hypothyroid, sinus allergies, eczema, iron anemia with iron infusion, seasonal allergies History of Any Multi-Drug Resistant Organisms: None Reported Past Surgical History: Appendectomy, Bariatric Surgery, Bowel Resection, Liza cystectomy, Coronary Bypass/CABG, Heart Catheterization, Hernia Repair, Joint Replacement, Orthopedic Surgery, Tubal Ligation Additional Past Surgical History / Comment(s): 09/29/18 removal R ear ventilation tube, R tympanomastiodectomy, CABG x1 vessel (1992), bilateral shoulder surgery/ rt shoulder rotator cuff, bilateral carpal tunnel releases, L wrist surgery d/t injury, total L knee, lap banding, gastric bypass w/ lap band removal 2013, colonoscopy/benign polypectomy, R colectomy d/t mass, EGD, umbilical hernia repair, Rt Total Hip Past Anesthesia/Blood Transfusion Reactions: Motion Sickness Additional Past Anesthesia/Blood Transfusion Reaction / Comment(s): VERTIGO Past Psychological History: No Psychological Hx Reported Smoking Status: Former smoker Past Alcohol Use History: None Reported Past Drug Use History: None Reported - Past Family History Mother Additional Family Medical History / Comment(s): Pt states her mother never went to the doctor so she does not know of any medical problems. Mother lived to be 87yrs old. Father Additional Family Medical History / Comment(s): Father at the age of 67yrs, pt does not know cause of . Sister(s) Family Medical History: Cancer Additional Family Medical History / Comment(s): LUNG CA General Exam Limitations: no limitations Course Vital Signs 12/06/20 11:22 Temperature 97.8 F Pulse Rate 72 Respiratory 22 Rate Blood Pressure 148/65 O2 Sat by Pulse 96 Oximetry Medical Decision Making - Lab Data Result diagrams: 12/06/20 12:00 12/06/20 12:00 Lab Results 12/06/20 12/06/20 12/06/20 Range/Units 12:00 12:00 12:00 WBC 7.1 (3.8-10.6) k/uL RBC 4.09 (3.80-5.40) m/uL Hgb 13.4 (11.4-16.0) gm/dL Hct 40.0 (34.0-46.0) % MCV 98.0 (80.0-100.0) fL MCH 32.7 (25.0-35.0) pg MCHC 33.4 (31.0-37.0) g/dL RDW 13.5 (11.5-15.5) % Plt Count 257 (150-450) k/uL MPV 7.0 Neutrophils % 71 % Lymphocytes % 19 % Monocytes % 6 % Eosinophils % 1 % Basophils % 0 % Neutrophils # 5.0 (1.3-7.7) k/uL Lymphocytes # 1.4 (1.0-4.8) k/uL Monocytes # 0.5 (0-1.0) k/uL Eosinophils # 0.1 (0-0.7) k/uL Basophils # 0.0 (0-0.2) k/uL PT 10.5 (9.0-12.0) sec INR 1.0 (<1.2) APTT 21.0 L (22.0-30.0) sec Sodium 138 (137-145) mmol/L Potassium 3.8 (3.5-5.1) mmol/L Chloride 104 (98-107) mmol/L Carbon Dioxide 29 (22-30) mmol/L Anion Gap 5 mmol/L BUN 13 (7-17) mg/dL Creatinine 0.83 (0.52-1.04) mg/dL Est GFR (CKD-EPI)AfAm 84 (>60 ml/min/1.73 sqM) Est GFR (CKD-EPI)NonAf 73 (>60 ml/min/1.73 sqM) Glucose 107 H (74-99) mg/dL Plasma Lactic Acid Broderick (0.7-2.0) mmol/L Calcium 10.4 H (8.4-10.2) mg/dL Total Bilirubin 0.7 (0.2-1.3) mg/dL AST 30 (14-36) U/L ALT 17 (4-34) U/L Alkaline Phosphatase 70 (38-126) U/L NT-Pro-B Natriuret Pep pg/mL Total Protein 6.7 (6.3-8.2) g/dL Albumin 4.3 (3.5-5.0) g/dL Amylase 41 (30-110) U/L Lipase 166 (23-300) U/L 12/06/20 12/06/20 Range/Units 12:00 12:00 WBC (3.8-10.6) k/uL RBC (3.80-5.40) m/uL Hgb (11.4-16.0) gm/dL Hct (34.0-46.0) % MCV (80.0-100.0) fL MCH (25.0-35.0) pg MCHC (31.0-37.0) g/dL RDW (11.5-15.5) % Plt Count (150-450) k/uL MPV Neutrophils % % Lymphocytes % % Monocytes % % Eosinophils % % Basophils % % Neutrophils # (1.3-7.7) k/uL Lymphocytes # (1.0-4.8) k/uL Monocytes # (0-1.0) k/uL Eosinophils # (0-0.7) k/uL Basophils # (0-0.2) k/uL PT (9.0-12.0) sec INR (<1.2) APTT (22.0-30.0) sec Sodium (137-145) mmol/L Potassium (3.5-5.1) mmol/L Chloride (98-107) mmol/L Carbon Dioxide (22-30) mmol/L Anion Gap mmol/L BUN (7-17) mg/dL Creatinine (0.52-1.04) mg/dL Est GFR (CKD-EPI)AfAm (>60 ml/min/1.73 sqM) Est GFR (CKD-EPI)NonAf (>60 ml/min/1.73 sqM) Glucose (74-99) mg/dL Plasma Lactic Acid Broderick 1.1 (0.7-2.0) mmol/L Calcium (8.4-10.2) mg/dL Total Bilirubin (0.2-1.3) mg/dL AST (14-36) U/L ALT (4-34) U/L Alkaline Phosphatase (38-126) U/L NT-Pro-B Natriuret Pep 195 pg/mL Total Protein (6.3-8.2) g/dL Albumin (3.5-5.0) g/dL Amylase (30-110) U/L Lipase (23-300) U/L Disposition Clinical Impression: Abdominal discomfort Disposition: HOME SELF-CARE Condition: Good Instructions (If sedation given, give patient instructions): Acute Abdominal Pain (ED) Additional Instructions: Please use medication as discussed. Please follow-up with family doctor in the next 2 days. Please return to emergency room if the symptoms increase or worsen or for any other concerns. Is patient prescribed a controlled substance at d/c from ED?: No Referrals: Padilla Santiago MD [Primary Care Provider] - 1-2 days Time of Disposition: 13:13
--- NOTE | 2020-12-06 13:12 | CT ---
EXAMINATION TYPE: CT abdomen pelvis w con DATE OF EXAM: 12/06/2020 COMPARISON: HISTORY: Epigastric pain CT DLP: 2502.7 mGycm CONTRAST: CT scan of the abdomen and pelvis is performed without Oral Contrast and with IV Contrast, patient in jected with 100 mL of Isovue 300. FINDINGS: LUNG BASES-: No visible nodule. No infiltrate. LIVER/GB: The gallbladder is surgically absent. No space occupying hepatic lesion. Biliary tree is of normal caliber. PANCREAS: No inflammation. No distinct mass. SPLEEN: No splenic enlargement. No lesion seen. ADRENALS: No nodule. No thickening. KIDNEYS/BLADDER: No hydronephrosis. 7 mm nonobstructing calculus lower pole left kidney. Cyst right kidney measures 3.8 cm. Exophytic cyst upper pole left kidney measures 2.5 cm. Urinary bladder grossl y unremarkable. BOWEL: Normal bowel caliber. No inflammation. Sigmoid diverticulosis without diverticulitis. Partial right hemicolectomy changes noted. Anastomosis appears within normal limits. GENITAL ORGANS: No gross abnormality. LYMPH NODES: No greater than 1cm abdominal or pelvic lymph nodes are appreciated. AORTA: No significant abnormality. OSSEOUS STRUCTURES: No significant abnormality is seen. OTHER: No significant additional abnormality is seen. IMPRESSION: 1. No acute process to account for the patient's symptoms.
[2020-12-06 13:29] VITALS: BP 113/89; PULSE 65; RESP 18
== END 2020-12-06 13:29 | disposition home or self-care (01) ==
LOC: EC 11:21
DX: R10.10 Upper abdominal pain, unspecified (principal); R19.7 Diarrhea, unspecified; R50.9 Fever, unspecified; R53.81 Other malaise; J44.9 Chronic obstructive pulmonary disease, unspecified; I25.10 Atherosclerotic heart disease of native coronary artery without angina pectoris; E11.9 Type 2 diabetes mellitus without complications; K21.9 Gastro-esophageal reflux disease without esophagitis; E78.5 Hyperlipidemia, unspecified; M19.90 Unspecified osteoarthritis, unspecified site; E03.9 Hypothyroidism, unspecified; H91.92 Unspecified hearing loss, left ear; I11.9 Hypertensive heart disease without heart failure; Z87.891 Personal history of nicotine dependence; Z79.82 Long term (current) use of aspirin; Z79.51 Long term (current) use of inhaled steroids; Z79.890 Hormone replacement therapy; Z79.84 Long term (current) use of oral hypoglycemic drugs; Z90.49 Acquired absence of other specified parts of digestive tract
CPT/HCPCS: 83880; 80053; 82150; 83605; 83690; 84484; 85025; 85610; 85730; 71046; 74177; 99284; Q9967

== ENCOUNTER → 2021-01-15 | Outpatient (CLI) | payer MEDICARE, OTHER ==
--- NOTE | 2021-01-15 17:03 | US ---
EXAMINATION TYPE: US kidneys/renal and bladder DATE OF EXAM: 01/15/2021 COMPARISON: CT 12/06/2020 CLINICAL HISTORY: N28.9 Disorder of kidney and ureter. EXAM MEASUREMENTS: Right Kidney: 10.0 x 4.9 x 5.6 cm Left Kidney: 11.3 x 5.6 x 5.8 cm Right Kidney: lower/lateral cyst measures 4.4 x 3.4 x 4.2 cm Left Kidney: mid/lateral cyst measures 2.5 x 2.3 x 1.9 cm Bladder: wnl Bilateral ureteral jets seen: No No hydronephrosis or shadowing renal calculi of either kidney. Bilateral renal cysts. Bilateral urete ral jets are not visualized. IMPRESSION: 1. No hydronephrosis or shadowing renal calculi. 2. Bilateral renal cysts, as described above. The largest at the right lower pole measuring 4.4 cm. 3. Bilateral ureteral jets are not visualized.
== END | disposition home or self-care (01) ==
LOC: RADUSWWP 15:20
PROVIDERS: ATTEND Family Medicine
DX: N28.1 Cyst of kidney, acquired (principal)
CPT/HCPCS: 76770

== ENCOUNTER → 2021-05-23 | Outpatient (CLI) | payer MEDICARE, OTHER ==
--- NOTE | 2021-05-27 08:25 | PE ---
Nuclear medicine PET/CT HISTORY: Lymphoma abdomen, C 83.39, subsequent Patient received 11.5 mCi F-18 FDG intravenously delayed scanning was performed from the skull base t o the mid thighs. Localization and attenuation correction CT scan was performed. Correlation to prior exam nuclear medicine PET/CT 08/23/2020. Chest and neck: There is no cervical or supraclavicular adenopathy. No mediastinal, axillary, or brenna r adenopathy. No suspicious uptake. There is no evident lung mass, no pleural or pericardial effusion . Subpleural calcified nodule is present on axial image 105 and is punctate. Patient is post median s ternotomy. Prominent pulmonary artery could be indicative of pulmonary artery hypertension. ABDOMEN: There is no retroperitoneal or pelvic adenopathy. Postop changes are noted to be gastric eso phageal junction, lesser curvature of the stomach. Metallic density present within the liver. Patient is post cholecystectomy. Postop changes are noted to the bowel, the level of the postop change in th e right upper quadrant there is some local bowel wall thickening, SUV is elevated at 12. There is a n onobstructive calcification in the lower pole the left kidney. Uptake along the bowel is felt likely to be physiologic. Osseous structures show postop change to the right hip. No suspicious uptake. Degenerative disc mattson e and facet arthropathy noted in the lumbar spine. IMPRESSION: Uptake along the right colon is indeterminate at the site of patient's prior operative ch james, there is some bowel wall thickening at this level, findings have developed in the interval.
== END | disposition home or self-care (01) ==
LOC: RADPETMAIN 09:38
PROVIDERS: ATTEND Internal Medicine Hematology & Oncology
DX: C85.93 Non-Hodgkin lymphoma, unspecified, intra-abdominal lymph nodes (principal)
CPT/HCPCS: 78815; A9552

== ENCOUNTER 2021-06-26 17:04 | Emergency (ER) | payer MEDICARE, OTHER ==
[2021-06-26] MEDS ORDERED: IPRATROPIUM-ALBUTEROL 3 ML NEB INHALATION STA (20:40)
[2021-06-26] MEDS ORDERED: HYDROcodone/APAP 7.5-325MG 1 EACH TAB PO ONE (20:40)
--- NOTE | 2021-06-26 20:40 | ED ---
General Adult HPI - General Chief complaint: Weakness Stated complaint: Weakness, Fall Time Seen by Provider: 06/26/21 20:02 Source: patient, RN notes reviewed, old records reviewed Mode of arrival: wheelchair Limitations: no limitations - History of Present Illness Initial comments: 71-year-old female, alert and oriented 4, presents to emergency room with 2 days of increasing weakness and multiple falls. Patient states that she fell yesterday on the hardwood floor onto her left hip. She denies hitting her head or loss of consciousness. She states that she is having increasing pain in her low back with a generalized weakness. States that she sustained an abrasion and bruising to her left buttock after the fall yesterday. She denies any fevers. She denies any chest pain. No nausea vomiting or diarrhea. She states she talked to Dr. Santiago and he told her to come to the emergency room. -: days(s) (2) Location: back, buttocks Severity scale (1-10): 5 Consistency: constant Improves with: rest Worsens with: movement Associated Symptoms: cough, weakness Treatments Prior to Arrival: none - Related Data Home Medications Medication Instructions Recorded Confirmed Simvastatin [Zocor] 80 mg PO DAILY 03/21/14 06/26/21 Ergocalciferol [Vitamin D2 50,000 unit PO MO 10/09/14 06/26/21 (DRISDOL)] Levothyroxine Sodium [Synthroid] 150 mcg PO DAILY 10/09/14 06/26/21 Glimepiride [Amaryl] 1 mg PO DAILY 10/08/15 06/26/21 HYDROcodone/APAP 10-325MG [[place] 1 tab PO Q4-6H PRN 08/22/18 06/26/21 10-325] lisinopriL [Zestril] 5 mg PO DAILY@1200 08/22/18 06/26/21 Zafirlukast 20 mg PO BID 08/22/19 06/26/21 Fluticasone Nasal [place] [Flonase 1 spray EA NOSTRIL DAILY PRN 06/22/20 06/26/21 Nasal [place]] Carvedilol [Coreg] 6.25 mg PO BID 06/26/21 06/26/21 Hydrocortisone Cream 1 applic TOPICAL BID PRN 06/26/21 06/26/21 [Hydrocortisone 2.5% Cream] Ipratropium-Albuterol Nebulize 3 ml INHALATION RT-QID PRN 06/26/21 06/26/21 [Duoneb 0.5 mg-3 mg/3 ml Soln] Promethaz-Cod 6.25-10 mg/5 ml 5 ml PO TID PRN 06/26/21 06/26/21 [Phenergan with Codeine] QUEtiapine [SEROquel] 25 - 50 mg PO HS PRN 06/26/21 06/26/21 Previous Rx's Medication Instructions Recorded Aspirin EC [Ecotrin Low Dose] 81 mg PO DAILY #0 09/13/19 Nitrofurantoin Monohyd/M-Cryst 100 mg PO Q12HR 5 Days #10 cap 06/26/21 [Macrobid] Allergies Allergy/AdvReac Type Severity Reaction Status Date / Time allopurinol Allergy Itching Verified 06/26/21 22:43 cephalexin monohydrate Allergy Itching Verified 06/26/21 22:43 [From Keflex] clindamycin Allergy Itching Verified 06/26/21 22:43 NSAIDS (Non-Steroidal AdvReac Unknown STATES NO Verified 06/26/21 22:43 Anti-Inflamma NSAIDS DUE TO GASTRIC BYPASS ciprofloxacin [From Cipro] AdvReac Itching Verified 06/26/21 22:43 doxycycline AdvReac Itching Verified 06/26/21 22:43 Review of Systems ROS Statement: Those systems with pertinent positive or pertinent negative responses have been documented in the HPI. ROS Other: All systems not noted in ROS Statement are negative. 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, colectomy d/t mass-wasn't told it was cancer ous, ischemic heart disease, NIDDM, deaf/chronic otitis media L ear, Deaf L ear, chronic low back/neck pain, vertigo, L hand NT R/T hx L wrist fx, RLS, varicosities, possible IBS/colitis/chrohn's per pt in the past, benign colon polyps, uses C-PAP, hypothyroid, sinus allergies, eczema, iron anemia with iron infusion, seasonal allergies History of Any Multi-Drug Resistant Organisms: None Reported Past Surgical History: Appendectomy, Bariatric Surgery, Bowel Resection, Cholecystectomy, Coronary Bypass/CABG, Heart Catheterization, Hernia Repair, J oint Replacement, Orthopedic Surgery, Tubal Ligation Additional Past Surgical History / Comment(s): 09/29/18 removal R ear ventilation tube, R tympanomastiodectomy, CABG x1 vessel (1992), bilateral shoulder surgery/ rt shoulder rotator cuff, bilateral carpal tunnel releases, L wrist surgery d/t injury, total L knee, lap banding, gastric bypass w/ lap band removal 2013, colonoscopy/benign polypectomy, R colectomy d/t mass, EGD, umbilical hernia repair, Rt Total Hip Past Anesthesia/Blood Transfusion Reactions: Motion Sickness Additional Past Anesthesia/Blood Transfusion Reaction / Comment(s): VERTIGO Past Psychological History: No Psychological Hx Reported Smoking Status: Former smoker Past Alcohol Use History: None Reported Past Drug Use History: None Reported - Past Family History Mother Additional Family Medical History / Comment(s): Pt states her mother never went to the doctor so she does not know of any medical problems. Mother lived to be 87yrs old. Father Additional Family Medical History / Comment(s): Father at the age of 67yrs, pt does not know cause of . Sister(s) Family Medical History: Cancer Additional Family Medical History / Comment(s): LUNG CA General Exam Limitations: no limitations General appearance: alert, in no apparent distress Head exam: Present: atraumatic, normocephalic, normal inspection Eye exam: Present: normal appearance, EOMI ENT exam: Present: normal exam, normal oropharynx, mucous membranes moist Neck exam: Present: normal inspection, full ROM. Absent: tenderness, meningismus, lymphadenopathy, thyromegaly Respiratory exam: Present: wheezes Cardiovascular Exam: Present: regular rate, normal rhythm, normal heart sounds. Absent: systolic murmur, diastolic murmur, rubs, gallop, clicks, JVD GI/Abdominal exam: Present: soft, normal bowel sounds. Absent: distended, tenderness, guarding, rebound, rigid Extremities exam: Present: normal inspection, full ROM, normal capillary refill. Absent: tenderness, pedal edema, calf tenderness Back exam: Present: normal inspection, full ROM. Absent: CVA tenderness (R), CVA tenderness (L), muscle spasm, paraspinal tenderness, rash noted Expanded Back exam: Absent: saddle anesthesia Back exam: Negative Straight Leg Raising: Left, Right Neurological exam: Present: alert, oriented X3 Psychiatric exam: Present: normal affect, normal mood Skin exam: Present: warm, dry, normal color, abrasion, other (Left mid buttock ecchymosis left hip). Absent: rash Course Vital Signs 06/26/21 06/26/21 06/26/21 18:35 22:19 22:24 Temperature 97.8 F Pulse Rate 61 66 69 Respiratory 20 Rate Blood Pressure 110/55 O2 Sat by Pulse 100 Oximetry 06/26/21 06/27/21 22:30 00:34 Temperature 98.1 F Pulse Rate 66 64 Respiratory 16 18 Rate Blood Pressure 138/77 140/77 O2 Sat by Pulse 98 98 Oximetry EKG Findings - EKG Results: EKG: sinus rhythm (Ventricular rate 68, DC interval of 0.154, QRS 0.110, QTC 0.433; occasional PVC), not changed from: (12/06/2020) Medical Decision Making - Medical Decision Making Chest x-ray shows chronic changes and cardiomegaly with no acute cardiopulmonary process. X-ray of LS-spine shows no evidence of compression fractures. She has negative straight leg test. She has no focal neurological deficits. Her vital signs are stable. Hemoglobin and hematocrit are stable, there is no evidence of leukocytosis. Her electrolytes are unremarkable. Troponin is negative at 0.012 and EKG shows sinus rhythm with occasional PVCs. There is evidence of a urinary tract infection and she will be treated with Macrobid due to multiple ALLERGIES. I did speak with Dr. Santiago who recommended patient follow up with him in the office. Case discussed with Dr. Cast - Lab Data Result diagrams: 06/26/21 21:00 06/26/21 21:00 Lab Results 06/26/21 06/26/21 06/26/21 Range/Units 21:00 21:00 21:00 WBC 7.7 (3.8-10.6) k/uL RBC 4.08 (3.80-5.40) m/uL Hgb 13.3 (11.4-16.0) gm/dL Hct 41.2 (34.0-46.0) % MCV 100.8 H (80.0-100.0) fL MCH 32.5 (25.0-35.0) pg MCHC 32.3 (31.0-37.0) g/dL RDW 14.0 (11.5-15.5) % Plt Count 223 (150-450) k/uL MPV 8.4 Neutrophils % 65 % Lymphocytes % 24 % Monocytes % 7 % Eosinophils % 3 % Basophils % 0 % Neutrophils # 5.0 (1.3-7.7) k/uL Lymphocytes # 1.9 (1.0-4.8) k/uL Monocytes # 0.5 (0-1.0) k/uL Eosinophils # 0.2 (0-0.7) k/uL Basophils # 0.0 (0-0.2) k/uL Macrocytosis Slight PT 10.3 (9.0-12.0) sec INR 1.0 (<1.2) APTT 16.6 L (22.0-30.0) sec Sodium 138 (137-145) mmol/L Potassium 4.6 (3.5-5.1) mmol/L Chloride 105 (98-107) mmol/L Carbon Dioxide 28 (22-30) mmol/L Anion Gap 5 mmol/L BUN 22 H (7-17) mg/dL Creatinine 0.83 (0.52-1.04) mg/dL Est GFR (CKD-EPI)AfAm 84 (>60 ml/min/1.73 sqM) Est GFR (CKD-EPI)NonAf 73 (>60 ml/min/1.73 sqM) Glucose 111 H (74-99) mg/dL Plasma Lactic Acid Broderick (0.7-2.0) mmol/L Calcium 10.5 H (8.4-10.2) mg/dL Total Bilirubin 0.6 (0.2-1.3) mg/dL AST 27 (14-36) U/L ALT 15 (4-34) U/L Alkaline Phosphatase 67 (38-126) U/L Troponin I (0.000-0.034) ng/mL Total Protein 6.4 (6.3-8.2) g/dL Albumin 3.9 (3.5-5.0) g/dL Urine Color Urine Appearance (Clear) Urine pH (5.0-8.0) Ur Specific [place] (1.001-1.035) Urine Protein (Negative) Urine Glucose (UA) (Negative) Urine Ketones (Negative) Urine Blood (Negative) Urine Nitrite (Negative) Urine Bilirubin (Negative) Urine Urobilinogen (<2.0) mg/dL Ur Leukocyte Esterase (Negative) Urine RBC (0-5) /hpf Urine WBC (0-5) /hpf Urine WBC Clumps (None) /hpf Ur Squamous Epith Cells (0-4) /hpf Urine Bacteria (None) /hpf Urine Mucus (None) /hpf 06/26/21 06/26/21 06/26/21 Range/Units 21:00 21:00 21:40 WBC (3.8-10.6) k/uL RBC (3.80-5.40) m/uL Hgb (11.4-16.0) gm/dL Hct (34.0-46.0) % MCV (80.0-100.0) fL MCH (25.0-35.0) pg MCHC (31.0-37.0) g/dL RDW (11.5-15.5) % Plt Count (150-450) k/uL MPV Neutrophils % % Lymphocytes % % Monocytes % % Eosinophils % % Basophils % % Neutrophils # (1.3-7.7) k/uL Lymphocytes # (1.0-4.8) k/uL Monocytes # (0-1.0) k/uL Eosinophils # (0-0.7) k/uL Basophils # (0-0.2) k/uL Macrocytosis PT (9.0-12.0) sec INR (<1.2) APTT (22.0-30.0) sec Sodium (137-145) mmol/L Potassium (3.5-5.1) mmol/L Chloride (98-107) mmol/L Carbon Dioxide (22-30) mmol/L Anion Gap mmol/L BUN (7-17) mg/dL Creatinine (0.52-1.04) mg/dL Est GFR (CKD-EPI)AfAm (>60 ml/min/1.73 sqM) Est GFR (CKD-EPI)NonAf (>60 ml/min/1.73 sqM) Glucose (74-99) mg/dL Plasma Lactic Acid Broderick 1.0 (0.7-2.0) mmol/L Calcium (8.4-10.2) mg/dL Total Bilirubin (0.2-1.3) mg/dL AST (14-36) U/L ALT (4-34) U/L Alkaline Phosphatase (38-126) U/L Troponin I <0.012 (0.000-0.034) ng/mL Total Protein (6.3-8.2) g/dL Albumin (3.5-5.0) g/dL Urine Color Yellow Urine Appearance Clear (Clear) Urine pH 5.0 (5.0-8.0) Ur Specific [place] 1.017 (1.001-1.035) Urine Protein Negative (Negative) Urine Glucose (UA) Negative (Negative) Urine Ketones Negative (Negative) Urine Blood Negative (Negative) Urine Nitrite Negative (Negative) Urine Bilirubin Negative (Negative) Urine Urobilinogen <2.0 (<2.0) mg/dL Ur Leukocyte Esterase Moderate H (Negative) Urine RBC 1 (0-5) /hpf Urine WBC 49 H (0-5) /hpf Urine WBC Clumps Rare H (None) /hpf Ur Squamous Epith Cells 1 (0-4) /hpf Urine Bacteria Few H (None) /hpf Urine Mucus Rare H (None) /hpf Disposition Clinical Impression: UTI (urinary tract infection) Disposition: HOME SELF-CARE Condition: Good Instructions (If sedation given, give patient instructions): Urinary Tract Infection in Women (DC) Additional Instructions: Take antibiotics as prescribed and follow-up with Dr. Santiago tomorrow. Return to the emergency room with any new or worsening symptoms. Prescriptions: Nitrofurantoin Monohyd/M-Cryst [Macrobid] 100 mg PO Q12HR 5 Days #10 cap Is patient prescribed a controlled substance at d/c from ED?: No Referrals: Padilla Santiago MD [Primary Care Provider] - 1-2 days Time of Disposition: 23:19
[2021-06-26 21:09] LABS: Basophils % (A) 0 %; Eosinophils # (A) 0.2 k/uL (0-0.7); Eosinophils % (A) 3 %; HCT 41.2 % (34.0-46.0); HGB 13.3 gm/dL (11.4-16.0); Lymphocytes # (A) 1.9 k/uL (1.0-4.8); Lymphocytes % (A) 24 %; MCH 32.5 pg (25.0-35.0); MCHC 32.3 g/dL (31.0-37.0); MCV 100.8 fL (80.0-100.0); Macrocytosis Slight; Mean Platelet Volume 8.4; Monocytes # (A) 0.5 k/uL (0-1.0); Monocytes % (A) 7 %; Neutrophils % (A) 65 %; Platelet Count 223 k/uL (150-450); RBC 4.08 m/uL (3.80-5.40); WBC 7.7 k/uL (3.8-10.6)
[2021-06-26 21:18] LABS: Albumin 3.9 g/dL (3.5-5.0); Calcium 10.5 mg/dL (8.4-10.2); Potassium 4.6 mmol/L (3.5-5.1); Total Bilirubin 0.6 mg/dL (0.2-1.3); Total Protein 6.4 g/dL (6.3-8.2)
--- NOTE | 2021-06-26 21:33 | XR ---
EXAMINATION TYPE: XR chest 2V DATE OF EXAM: 06/26/2021 COMPARISON: Chest x-ray December 06, 2020 HISTORY: Cough and weakness. TECHNIQUE: Frontal and lateral views of the chest are obtained. FINDINGS: Overlying sternal wires and mediastinal clips are redemonstrated. There is chronic parench yma change without suspicious new focal air space opacity, pleural effusion, or pneumothorax seen. T he cardiac silhouette size is enlarged. Surgical change right shoulder partially imaged. IMPRESSION: Chronic change and cardiomegaly without acute pulmonary process.
[2021-06-26 21:35] LABS: Prothrombin Time 10.3 sec (9.0-12.0)
[2021-06-26 21:51] LABS: Partial Thromboplastin Time 16.6 sec (22.0-30.0)
[2021-06-26 22:54] LABS: Appearance,Urine Clear (Clear); Bacteria,Urine Few /hpf; Bilirubin,Urine Negative (Negative); Blood,Urine Negative (Negative); Color,Urine Yellow; Glucose,Urine (UA) Negative (Negative); Ketones,Urine Negative (Negative); Leukocyte Esterase,Urine Moderate (Negative); Mucus,Urine Rare /hpf; Nitrite,Urine Negative (Negative); Protein,Urine Negative (Negative); RBC,Urine 1 /hpf (0-5); Specific Gravity,Urine 1.017 (1.001-1.035); Squamous Epithelial Cell,Urine 1 /hpf (0-4); Urobilinogen,Urine <2.0 mg/dL (<2.0); WBC,Urine 49 /hpf (0-5)
--- NOTE | 2021-06-26 23:08 | XR ---
EXAMINATION TYPE: XR lumbosacral spine min 4V DATE OF EXAM: 06/26/2021 COMPARISON: NONE HISTORY: Pain TECHNIQUE: 5 views FINDINGS: The lumbar vertebra have fairly normal alignment. There is mild spurring of the endplates. There is no significant disc space narrowing. There is no compression fracture. There is T12-L1 anter ior osteophyte formation. Abdominal aorta is atheromatous. Sacroiliac joints are intact. IMPRESSION: Mild degenerative hypertrophic changes. No fracture seen.
[2021-06-26] MEDS ORDERED: NITROFURANTOIN MONOHYD/M-CRYST 100 MG CAP PO STA (23:10)
[2021-06-27 00:36] VITALS: BP 140/77; PULSE 64; RESP 18; TEMP 98.1
== END 2021-06-27 00:34 | disposition home or self-care (01) ==
LOC: EC 17:04
DX: S70.02XA Contusion of left hip, initial encounter (principal); N39.0 Urinary tract infection, site not specified; E11.9 Type 2 diabetes mellitus without complications; I10 Essential (primary) hypertension; I25.10 Atherosclerotic heart disease of native coronary artery without angina pectoris; J44.9 Chronic obstructive pulmonary disease, unspecified; E78.5 Hyperlipidemia, unspecified; E03.9 Hypothyroidism, unspecified; M19.90 Unspecified osteoarthritis, unspecified site; Z79.84 Long term (current) use of oral hypoglycemic drugs; Z79.82 Long term (current) use of aspirin; Z79.890 Hormone replacement therapy; Z79.899 Other long term (current) drug therapy
CPT/HCPCS: 36415; 71046; 72110; 80053; 81001; 83605; 84484; 85025; 85610; 85730; 87077; 87086; 87186; 93005; 94640; 99285

== ENCOUNTER 2021-07-04 10:19 | Inpatient (IN) | payer MEDICARE, OTHER ==
--- NOTE | 2021-07-04 11:14 | ED ---
General Adult HPI - General Chief complaint: Weakness Stated complaint: Weakness Time Seen by Provider: 07/04/21 10:55 Source: patient, RN notes reviewed Mode of arrival: wheelchair Limitations: physical limitation - History of Present Illness Initial comments: Patient is a pleasant 8 he 11-year-old female presenting to the emergency department with concerns with general weakness. Onset of symptoms was around a week ago. Patient is falling approximately once daily. Patient denies any sore AcipHex significant injury. Patient states she is a little bit of fatigue. Patient states symptoms worsen when she is walking and her legs give out on her. No isolated area of weakness. Patient denies any confusion. No head injury or loss of consciousness. - Related Data Home Medications Medication Instructions Recorded Confirmed Simvastatin [Zocor] 80 mg PO HS 03/21/14 07/04/21 Ergocalciferol [Vitamin D2 50,000 unit PO MO 10/09/14 07/04/21 (DRISDOL)] Levothyroxine Sodium [Synthroid] 150 mcg PO DAILY 10/09/14 07/04/21 Glimepiride [Amaryl] 1 mg PO DAILY 10/08/15 07/04/21 HYDROcodone/APAP 10-325MG [[place] 1 tab PO Q4H PRN 08/22/18 07/04/21 10-325] lisinopriL [Zestril] 5 mg PO DAILY@1200 08/22/18 07/04/21 Zafirlukast 20 mg PO BID 08/22/19 07/04/21 Fluticasone Nasal [place] [Flonase 1 spray EA NOSTRIL DAILY PRN 06/22/20 07/04/21 Nasal [place]] Carvedilol [Coreg] 6.25 mg PO BID 06/26/21 07/04/21 Promethaz-Cod 6.25-10 mg/5 ml 5 ml PO TID PRN 06/26/21 07/04/21 [Phenergan with Codeine] Multivitamins, Thera [Multivitamin 1 tab PO DAILY 07/04/21 07/04/21 (formulary)] rOPINIRole HCL [Requip] 2 mg PO DAILY PRN 07/04/21 07/04/21 Previous Rx's Medication Instructions Recorded Aspirin EC [Ecotrin Low Dose] 81 mg PO DAILY #0 09/13/19 Nitrofurantoin Monohyd/M-Cryst 100 mg PO Q12HR 5 Days #10 cap 06/26/21 [Macrobid] Allergies Allergy/AdvReac Type Severity Reaction Status Date / Time allopurinol Allergy Itching Verified 07/04/21 12:05 cephalexin monohydrate Allergy Itching Verified 07/04/21 12:05 [From Keflex] clindamycin Allergy Itching Verified 07/04/21 12:05 NSAIDS (Non-Steroidal AdvReac Unknown STATES NO Verified 07/04/21 12:05 Anti-Inflamma NSAIDS DUE TO GASTRIC BYPASS ciprofloxacin [From Cipro] AdvReac Itching Verified 07/04/21 12:05 doxycycline AdvReac Itching Verified 07/04/21 12:05 Review of Systems ROS Statement: Those systems with pertinent positive or pertinent negative responses have been documented in the HPI. ROS Other: All systems not noted in ROS Statement are negative. Constitutional: Denies: fever Eyes: Denies: eye pain ENT: Denies: ear pain Respiratory: Denies: cough Cardiovascular: Denies: chest pain Endocrine: Reports: fatigue Gastrointestinal: Denies: abdominal pain Genitourinary: Denies: dysuria Musculoskeletal: Denies: back pain Skin: Denies: rash Neurological: Reports: as per HPI, weakness. 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, colectomy d/t mass-wasn't told it was cancerous, ischemic heart disease, NIDDM, deaf/chronic otitis media L ear, Deaf L ear, chronic low back/neck pain, vertigo, L hand NT R/T hx L wrist fx, RLS, varicosities, possible IBS/colitis/chrohn's per pt in the past, benign colon polyps, uses C-PAP, hypothyroid, sinus allergies, eczema, iron anemia with iron infusion, seasonal allergies History of Any Multi-Drug Resistant Organisms: None Reported Past Surgical History: Appendectomy, Bariatric Surgery, Bowel Resection, Cholecystectomy, Coronary Bypass/CABG, Heart Catheterization, Hernia Repair, Joint Replacement, Orthopedic Surgery, Tubal Ligation Additional Past Surgical History / Comment(s): 09/29/18 removal R ear ventilation tube, R tympanomastiodectomy, CABG x1 vessel (1992), bilateral shoulder surgery/ rt shoulder rotator cuff, bilateral carpal tunnel releases, L wrist surgery d/t injury, total L knee, lap banding, gastric bypass w/ lap band removal 2013, colonoscopy/benign polypectomy, R colectomy d/t mass, EGD, umbilical hernia repair, Rt Total Hip Past Anesthesia/Blood Transfusion Reactions: Motion Sickness Additional Past Anesthesia/Blood Transfusion Reaction / Comment(s): VERTIGO Past Psychological History: No Psychological Hx Reported Smoking Status: Former smoker Past Alcohol Use History: None Reported Past Drug Use History: None Reported - Past Family History Mother Additional Family Medical History / Comment(s): Pt states her mother never went to the doctor so she does not know of any medical problems. Mother lived to be 87yrs old. Father Additional Family Medical History / Comment(s): Father at the age of 67yrs, pt does not know cause of . Sister(s) Family Medical History: Cancer Additional Family Medical History / Comment(s): LUNG CA General Exam Limitations: physical limitation General appearance: alert, in no apparent distress Head exam: Present: normocephalic Eye exam: Present: normal appearance, PERRL, EOMI. Absent: nystagmus ENT exam: Present: normal oropharynx Neck exam: Present: normal inspection Respiratory exam: Present: normal lung sounds bilaterally Cardiovascular Exam: Present: bradycardia GI/Abdominal exam: Present: soft. Absent: distended, tenderness Extremities exam: Present: normal inspection Neurological exam: Present: alert, oriented X3, CN II-XII intact. Absent: motor sensory deficit Expanded Neurological exam: Present: protecting the airway Patient oriented to: Present: person, place, time Speech: Present: fluid speech Cranial nerves: EOM's Intact: Normal, Facial Sensation: Normal Sensory exam: Upper Extremity Light Touch: Normal, Lower Extremity Light Touch: Normal Motor strength exam: RUE: 5, LUE: 5, RLE: 5, LLE: 5 Eye Response: (4) open spontaneously Motor Response: (6) obeys commands Verbal Response: (5) oriented Psychiatric exam: Present: normal affect, normal mood Skin exam: Present: normal color Course Vital Signs 07/04/21 07/04/21 10:55 14:14 Temperature 97.8 F Pulse Rate 51 L Pulse Rate [ 68 Machine Edge Bander ] Respiratory 18 Rate Blood Pressure 103/78 O2 Sat by Pulse 97 Oximetry EKG Findings - EKG Comments: EKG Findings:: Sinus rhythm with a rate of 70. PVC present. Significant motion artifact is present. MS 148. QRS 96. QT 410. QTc 442. Normal axis. Normal QRS. Nonspecific T waves. Medical Decision Making - Medical Decision Making Patient reevaluated and updated. Case discussed with Dr. Santiago, who will admit his patient and would like neurology consult. IV and advised will be started for urinary tract infection - Lab Data Result diagrams: 07/04/21 11:46 07/04/21 11:46 Lab Results 07/04/21 07/04/21 07/04/21 Range/Units 11:46 11:46 11:46 WBC 5.3 (3.8-10.6) k/uL RBC 3.93 (3.80-5.40) m/uL Hgb 13.1 (11.4-16.0) gm/dL Hct 38.4 (34.0-46.0) % MCV 97.9 (80.0-100.0) fL MCH 33.3 (25.0-35.0) pg MCHC 34.0 (31.0-37.0) g/dL RDW 13.7 (11.5-15.5) % Plt Count 271 (150-450) k/uL MPV 7.7 Neutrophils % 57 % Lymphocytes % 27 % Monocytes % 10 % Eosinophils % 4 % Basophils % 0 % Neutrophils # 3.0 (1.3-7.7) k/uL Lymphocytes # 1.4 (1.0-4.8) k/uL Monocytes # 0.5 (0-1.0) k/uL Eosinophils # 0.2 (0-0.7) k/uL Basophils # 0.0 (0-0.2) k/uL PT 9.9 (9.0-12.0) sec INR 0.9 (<1.2) APTT 20.8 L (22.0-30.0) sec Sodium 137 (137-145) mmol/L Potassium 4.6 (3.5-5.1) mmol/L Chloride 103 (98-107) mmol/L Carbon Dioxide 29 (22-30) mmol/L Anion Gap 5 mmol/L BUN 14 (7-17) mg/dL Creatinine 0.84 (0.52-1.04) mg/dL Est GFR (CKD-EPI)AfAm 82 (>60 ml/min/1.73 sqM) Est GFR (CKD-EPI)NonAf 71 (>60 ml/min/1.73 sqM) Glucose 101 H (74-99) mg/dL Plasma Lactic Acid Broder[place] (0.7-2.0) mmol/L Calcium 10.6 H (8.4-10.2) mg/dL Phosphorus 3.4 (2.5-4.5) mg/dL Magnesium 2.0 (1.6-2.3) mg/dL Total Bilirubin 0.4 (0.2-1.3) mg/dL AST 27 (14-36) U/L ALT 16 (4-34) U/L Alkaline Phosphatase 67 (38-126) U/L Troponin I (0.000-0.034) ng/mL Total Protein 6.6 (6.3-8.2) g/dL Albumin 3.9 (3.5-5.0) g/dL TSH 0.129 L (0.465-4.680) mIU/L Free T4 1.17 (0.78-2.19) ng/dL Free T3 pg/mL 2.7 L (2.8-5.3) pg/ml Urine Color Urine Appearance (Clear) Urine pH (5.0-8.0) Ur Specific [place] (1.001-1.035) Urine Protein (Negative) Urine Glucose (UA) (Negative) Urine Ketones (Negative) Urine Blood (Negative) Urine Nitrite (Negative) Urine Bilirubin (Negative) Urine Urobilinogen (<2.0) mg/dL Ur Leukocyte Esterase (Negative) Urine RBC (0-5) /hpf Urine WBC (0-5) /hpf Ur Squamous Epith Cells (0-4) /hpf Urine Bacteria (None) /hpf Hyaline Casts (0-2) /lpf Urine Mucus (None) /hpf 07/04/21 07/04/21 07/04/21 Range/Units 11:46 11:46 12:55 WBC (3.8-10.6) k/uL RBC (3.80-5.40) m/uL Hgb (11.4-16.0) gm/dL Hct (34.0-46.0) % MCV (80.0-100.0) fL MCH (25.0-35.0) pg MCHC (31.0-37.0) g/dL RDW (11.5-15.5) % Plt Count (150-450) k/uL MPV Neutrophils % % Lymphocytes % % Monocytes % % Eosinophils % % Basophils % % Neutrophils # (1.3-7.7) k/uL Lymphocytes # (1.0-4.8) k/uL Monocytes # (0-1.0) k/uL Eosinophils # (0-0.7) k/uL Basophils # (0-0.2) k/uL PT (9.0-12.0) sec INR (<1.2) APTT (22.0-30.0) sec Sodium (137-145) mmol/L Potassium (3.5-5.1) mmol/L Chloride (98-107) mmol/L Carbon Dioxide (22-30) mmol/L Anion Gap mmol/L BUN (7-17) mg/dL Creatinine (0.52-1.04) mg/dL Est GFR (CKD-EPI)AfAm (>60 ml/min/1.73 sqM) Est GFR (CKD-EPI)NonAf (>60 ml/min/1.73 sqM) Glucose (74-99) mg/dL Plasma Lactic Acid Broderick 0.8 (0.7-2.0) mmol/L Calcium (8.4-10.2) mg/dL Phosphorus (2.5-4.5) mg/dL Magnesium (1.6-2.3) mg/dL Total Bilirubin (0.2-1.3) mg/dL AST (14-36) U/L ALT (4-34) U/L Alkaline Phosphatase (38-126) U/L Troponin I <0.012 (0.000-0.034) ng/mL Total Protein (6.3-8.2) g/dL Albumin (3.5-5.0) g/dL TSH (0.465-4.680) mIU/L Free T4 (0.78-2.19) ng/dL Free T3 pg/mL (2.8-5.3) pg/ml Urine Color Yellow Urine Appearance Cloudy H (Clear) Urine pH 5.5 (5.0-8.0) Ur Specific [place] 1.019 (1.001-1.035) Urine Protein Negative (Negative) Urine Glucose (UA) Negative (Negative) Urine Ketones Negative (Negative) Urine Blood Small H (Negative) Urine Nitrite Negative (Negative) Urine Bilirubin Negative (Negative) Urine Urobilinogen <2.0 (<2.0) mg/dL Ur Leukocyte Esterase Large H (Negative) Urine RBC 8 H (0-5) /hpf Urine WBC 95 H (0-5) /hpf Ur Squamous Epith Cells 3 (0-4) /hpf Urine Bacteria Few H (None) /hpf Hyaline Casts 3 H (0-2) /lpf Urine Mucus Rare H (None) /hpf - Radiology Data Radiology results: report reviewed (Computed tomography scan of the brain shows no hemorrhage or shift. Mild diffuse atrophy with suspected mild to moderate hydrocephalus. Progression of moderate to severe low attenuation likely's chronic small vessel ischemia.), image reviewed (Chest x-ray with cardiomegaly) Disposition Clinical Impression: UTI (urinary tract infection), Weakness Disposition: ADMITTED IP TO THIS HOSP Is patient prescribed a controlled substance at d/c from ED?: No Referrals: Padilla Santiago MD [Primary Care Provider] - 1-2 days Decision Time: 15:10
--- NOTE | 2021-07-04 11:45 | XR ---
EXAMINATION TYPE: XR chest 2V DATE OF EXAM: 07/04/2021 COMPARISON: 06/26/2021 HISTORY: 71-year-old female with lower extremity weakness TECHNIQUE: Frontal and lateral views FINDINGS: Partially visualized reverse right shoulder arthroplasty. Median sternotomy wires and post-CABG clips in the mediastinum. Heart is enlarged. Interstitial prominence has a chronic appearance. No consolid ation or pleural effusion. Dictation in the mid and lower thoracic spine. IMPRESSION: Similar cardiomegaly and chronic appearing changes. No definite acute process.
--- NOTE | 2021-07-04 11:50 | CT ---
EXAMINATION TYPE: CT brain wo con DATE OF EXAM: 07/04/2021 HISTORY: Confusion, trouble ambulating. Positive UTI [address] DLP: 1143.4 mGycm. Automated Exposure Control for Dose Reduction was Utilized. TECHNIQUE: CT scan of the head is performed without contrast. COMPARISON: CT brain March 30, 2013. FINDINGS: There is no acute intracranial hemorrhage or midline shift identified. There is diffuse v entricular and sulcal prominence with ventricular prominence out of proportion to degree of sulcal ef facement and more prominent from 2013 CT. Fourth ventricle not significantly dilated There is moderat e to severe low-attenuation in the periventricular white matter more prominent from prior study. The globes are intact and the visualized sinuses are clear. IMPRESSION: No acute intracranial hemorrhage or midline shift. There is mild diffuse atrophy with s uspected mild to moderate underlying hydrocephalus. Correlate clinically. There is moderate to severe low-attenuation in the periventricular white matter likely on basis of chronic small vessel ischemic change of patient this age greatest over the bilateral frontal lobes. Findings progressed from 2013 CT. Correlation with more recent CT or MRI would be beneficial.
[2021-07-04 12:10] LABS: Basophils % (A) 0 %; Eosinophils # (A) 0.2 k/uL (0-0.7); Eosinophils % (A) 4 %; HCT 38.4 % (34.0-46.0); HGB 13.1 gm/dL (11.4-16.0); Lymphocytes # (A) 1.4 k/uL (1.0-4.8); Lymphocytes % (A) 27 %; MCH 33.3 pg (25.0-35.0); MCV 97.9 fL (80.0-100.0); Mean Platelet Volume 7.7; Monocytes # (A) 0.5 k/uL (0-1.0); Monocytes % (A) 10 %; Neutrophils % (A) 57 %; Platelet Count 271 k/uL (150-450); RBC 3.93 m/uL (3.80-5.40); RDW 13.7 % (11.5-15.5); WBC 5.3 k/uL (3.8-10.6)
[2021-07-04 12:32] LABS: Albumin 3.9 g/dL (3.5-5.0); Calcium 10.6 mg/dL (8.4-10.2); Phosphorus 3.4 mg/dL (2.5-4.5); Potassium 4.6 mmol/L (3.5-5.1); Total Bilirubin 0.4 mg/dL (0.2-1.3); Total Protein 6.6 g/dL (6.3-8.2)
[2021-07-04 12:37] LABS: INR 0.9 (<1.2); Prothrombin Time 9.9 sec (9.0-12.0)
[2021-07-04 12:50] LABS: T4, Free (Free Thyroxine) 1.17 ng/dL (0.78-2.19)
[2021-07-04 13:02] LABS: Partial Thromboplastin Time 20.8 sec (22.0-30.0)
[2021-07-04 13:25] LABS: Appearance,Urine Cloudy (Clear); Bacteria,Urine Few /hpf; Bilirubin,Urine Negative (Negative); Blood,Urine Small (Negative); Color,Urine Yellow; Glucose,Urine (UA) Negative (Negative); Hyaline Casts,Urine 3 /lpf (0-2); Ketones,Urine Negative (Negative); Leukocyte Esterase,Urine Large (Negative); Mucus,Urine Rare /hpf; Nitrite,Urine Negative (Negative); PH, Urine 5.5 (5.0-8.0); Protein,Urine Negative (Negative); RBC,Urine 8 /hpf (0-5); Specific Gravity,Urine 1.019 (1.001-1.035); Squamous Epithelial Cell,Urine 3 /hpf (0-4); Urobilinogen,Urine <2.0 mg/dL (<2.0); WBC,Urine 95 /hpf (0-5)
[2021-07-04] MEDS ORDERED: AMPICILLIN-SULBACTAM 3 GM in SODIUM CHLORIDE 0.9% 100 ML IVPB STA (15:14)
[2021-07-04] MEDS ORDERED: ACETAMINOPHEN TAB 325 MG TAB PO PRN (15:15)
[2021-07-04] MEDS ORDERED: NALOXONE 0.4 MG/ML 1 ML VIAL IV PRN (15:15)
[2021-07-04] MEDS ORDERED: NON FORMULARY DRUG (Promethaz-Cod 6.25-10 Mg/5 Ml 5 ML Ml) PO PRN (15:46)
[2021-07-04] MEDS ORDERED: FLUTICASONE 50MCG/SPRAY NASAL 16GM EA NOSTRIL PRN (15:46)
[2021-07-04] MEDS: SODIUM CHLORIDE 0.9% 1,000 ML IV SCH (16:09)
[2021-07-04] MEDS: HYDROcodone/APAP 10-325MG 1 EACH TAB PO PRN ×2 (16:23→22:34)
[2021-07-04] MEDS: carvediloL 6.25 MG TAB PO SCH (17:54)
--- NOTE | 2021-07-04 18:15 | HP ---
HISTORY AND PHYSICAL This 71-year-old white female came to the emergency room with generalized weakness, unable to walk, severe leg weakness. She has fallen multiple times in the last 2 weeks. She has never felt like this before with weak legs like this, legs giving out on her. She was treated with outpatient antibiotics and failed x2 antibiotics. She was seen in the ER for this problem a week ago and sent home. She fell again. She has history of B-cell lymphoma, in remission. HOME MEDICINES: Vitamin D, Synthroid 150 mcg daily, Amaryl 1 mg daily, [place] 10/325 every 4, Zestril 5 mg daily, 20 mg b.i.d., promethazine syrup p.r.n. for cough, Coreg 6.25 b.i.d., Requip 2 mg at night, multivitamin daily, Flonase nasal spray daily. ALLERGIES: ALLOPURINOL, KEFLEX, CLINDAMYCIN, NSAIDS, CIPRO, DOXYCYCLINE REVIEW OF SYSTEMS: Fourteen-point review of systems otherwise is negative. FAMILY HISTORY: Sister with cancer of the lung. PHYSICAL EXAMINATION: Temperature 97.3, pulse 50s. HEENT normocephalic atraumatic. ENDOCRINE: BMI is over 40. Cardiovascular S1, S2. LUNGS: Rales at the base. Hematology negative Homans. Psych fair mood and affect. EKG sinus rhythm. ASSESSMENT: 1. Urinary tract infection with sepsis. 2. Severe generalized weakness, frequent falls, profound leg weakness, unclear etiology. Will get neurology consult for that. Continue broad-spectrum antibiotics, as she failed outpatient antibiotics. 1. History of beta cell lymphoma, static condition. Prognosis guarded. MMODL / IJN: [id number] /
[2021-07-04] MEDS: ATORVASTATIN 40 MG TAB PO SCH (20:55)
[2021-07-04] MEDS: MONTELUKAST 10 MG TAB PO SCH (20:55)
--- NOTE | 2021-07-04 22:04 | P.CNNES ---
History of Present Illness Consult date: 07/04/21 Requesting physician: Shailesh Valdes Reason for Consult: Weakness, falls History of Present Illness: Patient is a 71-year-old female came to the hospital today at 10:19 AM for 1 week history of frequent falls, legs giving out. Patient prior to 1 week, used to walk without any device, but now she has been falling regularly almost on a daily basis. She has started using walker. Patient came to the hospital about a week ago, and was diagnosed with UTI and discharge. As her symptoms were getting worse, her primary physician recommended her to come to the ER. Patient denies any problems with memory. Denies any problem with the vision, slurred speech facial droop or any strokelike symptoms. Patient states that while walking she just loses balance. She feels that she does walk with slight shuffling. Denies headache. Vital signs on arrival blood pressure 103/78, pulse rate 51, temperature 97.8. Patient's blood test shows normal CBC, PT/PTT. Chem-20 is normal. Calcium 10.6. Troponin negative. TSH is 0.129. Free T4 1 0.17. UA shows large amount of leukocyte Estrace. Coronavirus PCR negative. Patient's last hemoglobin A1c 5.8 on 07/04/2019. Serum protein electrophoresis and immunofixation electro phoresis negative. CT head showed no acute intracranial hemorrhage or midline shift. There is mild diffuse atrophy with suspected [id number] underlying hydrocephalus. Correlate clinically. There is moderate to severe low attenuation in the periventricular white matter likely on the basis of chronic small vessel ischemic change of patient's of this age, greatest over the bilateral frontal lobes. On my review, there is very significant dilation of the third and lateral ventricles, with normal appearing fourth ventricle, suggestive of possible obstructive hydrocephalus. There is calcification in the pineal region. Denies any previous history of cerebral hemorrhage. Patient states that she lives with her son and daughter and grandchildren. She has diabetes for last 20 years. Denies any tobacco or alcohol use. Patient states that she has been having problems with controlling urine with significant urgency for the last 1 week. She has had bladder accidents occasionally in the last 1 week. Denies any problems with memory. On review of records, it appears patient was seen by Dr. Daniel on 09/21/2017 for a fall at home and dizziness. It was mentioned in the report that patient has vertigo going back 10 years prior, off and on. Review of Systems As above in detail. All other 14 point of review of systems unremarkable. 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, colectomy d/t mass-wasn't told it was cancerous, ischemic heart disease, NIDDM, deaf/chronic otitis media L ear, Deaf L ear, chronic low back/neck pain, vertigo, L hand NT R/T hx L wrist fx, RLS, varicosities, possible IBS/colitis/chrohn's per pt in the past, benign colon polyps, uses C-PAP, hypothyroid, sinus allergies, eczema, iron anemia with iron infusion, seasonal allergies History of Any Multi-Drug Resistant Organisms: None Reported Past Surgical History: Appendectomy, Bariatric Surgery, Bowel Resection, Cholecystectomy, Coronary Bypass/CABG, Heart Catheterization, Hernia Repair, Joint Replacement, Orthopedic Surgery, Tubal Ligation Additional Past Surgical History / Comment(s): 09/29/18 removal R ear ventilation tube, R tympanomastiodectomy, CABG x1 vessel (1992), bilateral shoulder surgery/ rt shoulder rotator cuff, bilateral carpal tunnel releases, L wrist surgery d/t injury, total L knee, lap banding, gastric bypass w/ lap band removal 2013, colonoscopy/benign polypectomy, R colectomy d/t mass, EGD, umbilical hernia repair, Rt Total Hip Past Anesthesia/Blood Transfusion Reactions: Motion Sickness Additional Past Anesthesia/Blood Transfusion Reaction / Comment(s): VERTIGO Past Psychological History: No Psychological Hx Reported Additional Psychological History / Comment(s): Single and lives in the family home with son, brother and grandchild. 3 pet dogs in the home. No service. No international travel. Does not work outside of the home. No current tobacco or alcohol use, stopped smoking in 1992 Smoking Status: Former smoker Past Alcohol Use History: None Reported Additional Past Alcohol Use History / Comment(s): Pt started smoking in 1970, quit in 1992. Past Drug Use History: None Reported - Past Family History Mother Additional Family Medical History / Comment(s): Pt states her mother never went to the doctor so she does not know of any medical problems. Mother lived to be 87yrs old. Father Additional Family Medical History / Comment(s): Father at the age of 67yrs, pt does not know cause of . Sister(s) Family Medical History: Cancer Additional Family Medical History / Comment(s): LUNG CA Medications and Allergies Home Medications Medication Instructions Recorded Confirmed Type Simvastatin [Zocor] 80 mg PO HS 03/21/14 07/04/21 History Ergocalciferol [Vitamin D2 50,000 unit PO MO 10/09/14 07/04/21 History (DRISDOL)] Levothyroxine Sodium [Synthroid] 150 mcg PO DAILY 10/09/14 07/04/21 History Glimepiride [Amaryl] 1 mg PO DAILY 10/08/15 07/04/21 History HYDROcodone/APAP 10-325MG [[place] 1 tab PO Q4H PRN 08/22/18 07/04/21 History 10-325] lisinopriL [Zestril] 5 mg PO DAILY@1200 08/22/18 07/04/21 History Zafirlukast 20 mg PO BID 08/22/19 07/04/21 History Aspirin EC [Ecotrin Low Dose] 81 mg PO DAILY #0 09/13/19 07/04/21 Rx Fluticasone Nasal [place] [Flonase 1 spray EA NOSTRIL DAILY PRN 06/22/20 07/04/21 History Nasal [place]] Carvedilol [Coreg] 6.25 mg PO BID 06/26/21 07/04/21 History Nitrofurantoin Monohyd/M-Cryst 100 mg PO Q12HR 5 Days #10 cap 06/26/21 07/04/21 Rx [Macrobid] Promethaz-Cod 6.25-10 mg/5 ml 5 ml PO TID PRN 06/26/21 07/04/21 History [Phenergan with Codeine] Multivitamins, Thera [Multivitamin 1 tab PO DAILY 07/04/21 07/04/21 History (formulary)] rOPINIRole HCL [Requip] 2 mg PO DAILY PRN 07/04/21 07/04/21 History Allergies Allergy/AdvReac Type Severity Reaction Status Date / Time allopurinol Allergy Itching Verified 07/04/21 12:05 cephalexin monohydrate Allergy Itching Verified 07/04/21 12:05 [From Keflex] clindamycin Allergy Itching Verified 07/04/21 12:05 NSAIDS (Non-Steroidal AdvReac Unknown STATES NO Verified 07/04/21 12:05 Anti-Inflamma NSAIDS DUE TO GASTRIC BYPASS ciprofloxacin [From Cipro] AdvReac Itching Verified 07/04/21 12:05 doxycycline AdvReac Itching Verified 07/04/21 12:05 Physical Examination - Vital Signs Vital Signs: Vital Signs Temp Pulse Pulse Resp BP BP Pulse Ox 07/04/21 17:04 97.9 F 67 16 153/76 97 07/04/21 16:39 97.6 F 63 16 136/61 96 07/04/21 14:14 68 07/04/21 10:55 97.8 F 51 L 18 103/78 97 Intake and Output 07/04/21 07/04/21 07/04/21 06:59 14:59 22:59 Other: Weight 121.109 kg 121.109 kg Patient is an elderly female, very pleasant, in no acute distress. Patient is alert awake oriented to time place and person. Patient knows it is 07/04/2021, that she is in [place] in [place]. She knows name of the current president. Speech and language functions are normal. No aphasia or dysarthria. Attention, concentration and fund of knowledge is adequate. On cranial examination, pupils are round, surgical from previous cataract surgery and reacting to light, visual fuentes are full on confrontation, extraocular muscles are intact with no nystagmus. Face is symmetric, tongue protrudes to the midline. Palatal elevation and sensation normal, hearing and shoulder shrug normal, facial sensation normal. Shoulder shrug normal. On muscle strength testing, there is no pronator drift and the strength is normal in arms and legs distally and proximally. Deep tendon reflexes are hypoactive all over and plantars downgoing bilaterally. Sensory to touch is equal with no neglect. Cerebellar function showed no ataxia for [id number] testing. No dysdiadochokinesia. Tone and bulk of muscles normal. Gait deferred. On general examination, there is no carotid bruit or murmur, S1-S2 audible. Abdomen is soft nontender. Chest is clear. Peripheral pulses are present. Very mild edema. Results - Laboratory Findings CBC and BMP: 07/04/21 11:46 07/04/21 11:46 Abnormal Lab Findings: Abnormal Labs 07/04/21 07/04/21 07/04/21 11:46 11:46 12:55 APTT 20.8 L Glucose 101 H Calcium 10.6 H TSH 0.129 L Free T3 pg/mL 2.7 L Urine Appearance Cloudy H Urine Blood Small H Ur Leukocyte Esterase Large H Urine RBC 8 H Urine WBC 95 H Urine Bacteria Few H Hyaline Casts 3 H Urine Mucus Rare H Assessment and Plan Assessment: * 71-year-old female, otherwise healthy, has developed 1 week history of significant gait imbalance, frequent falls and bladder control issues with urgency. Computed tomography scan of the head reveals evidence of hydrocephalus. As the fourth ventricle appears normal size, therefore obstructive hydrocephalus is a possibility. Rule out pineal tumor/mass. * Diabetes * Obesity Plan: * Stat MRI of the brain with and without contrast, evaluate for hydrocephalus, rule out obstructive hydrocephalus, rule out pineal mass. * Strongly recommend transfer to a higher level of care for neurosurgical consultation. * B12, folate. * Discussed with nurse, who relayed information to the primary physician. * We will follow.
--- NOTE | 2021-07-04 22:53 | P.CONS ---
History of Present Illness - Reason for Consult Consult date: 07/04/21 UTI Requesting physician: Padilla Santiago - Chief Complaint WEAKNESS X FEW DAYS - History of Present Illness History of present illness : Patient is 71-year-old female with a past medical history significant for non-Hodgkin lymphoma history of coronary artery disease and multiple other comorbidity presented to the ER for generalized weakness and mention that her legs give out patient mention she did have similar symptoms about a week ago when she presented to this facility in the ER patient was diagnosed with a UTI and was subsequent discharged home on an oral by the patient was clear about the name patient presented to hospital with worsening symptoms no improvement patient denies having any headache no URI symptoms no chest pain shortness with a cough no abdominal pain did have some urinary difficulty and burning but no suprapubic or flank pains some nausea but no vomiting and did have some diarrhea on presentation to the hospital the patient was afebrile patient did have a normal white count with no left shift kidney function was normal. Have a cloudy urine with large leukocyte esterase and 95 WBC lacy PCR was negative patient did have a CT of the brain that was negative for any bleed chest x-ray cardiomegaly and chronic appearing changes and no definite acute process the patient was started on Unasyn was admitted to hospital infectious disease was consulted for further management of antibiotic therapy Review of system: CONSTITUTIONAL: Positive for weakness denies high-grade fever. EYES: No complaint. ENT: No complaint. RESPIRATORY: No complaint. CARDIOVASCULAR: No complaint. GENITOURINARY: As per history of present illness. GASTROINTESTINAL: No complaint. MUSCULOSKELETAL: No complaint. INTEGUMENTARY: No complaint. PSYCHOLOGIC: No complaint. ENDOCRINE: No complaint. NEUROLOGIC: No complaint. Past medical history : Reviewed, documented below Past surgical history : Reviewed, documented below Social history: Reviewed, documented below Medications: Reviewed, as documented below EXAMINATION: Vital sigans= Reviewed and documented below GENERAL DESCRIPTION: Elderly female lying in bed, no distress. No tachypnea or accessory muscle of respiration use. HEENT: Shows Pallor , no scleral icterus. Oral mucous membrane is dry. NECK: Trachea central, no thyromegaly. LUNGS: Unlabored breathing. Decreased breath sound at the base. No wheeze or crackle. HEART: S1, S2, regular rate and rhythm. ABDOMEN: Soft, no tenderness , guarding or rigidity EXTREMITIES: No edema of feet. SKIN: No rash, no masses palpable. NEUROLOGICAL: The patient is awake, alert, oriented x3, mood and affect normal. LABS AND RADIOLOGY: Reviewed results see below Assessment : Patient presented to hospital with weakness which is likely m ultifactorial in this patient did have some urinary symptoms and a positive UA clinically suspicious for a symptomatic urinary tract infection patient apparently has failed outpatient oral biotic therapy, her last urine culture done on 06/26/2021 was a E. coli that was a sensitive pathogen 2-cephalosporin allergy pill available number of antibiotics safe to use Plan: 1-patient to continue Unasyn 3 g every 8 hours 2-ultrasound of the kidneys show evidence of any structural abnormality 3-gentle IV fluid We will follow on clinical condition and cultures to further adjust medication if needed Thank you for this consultation we will follow the patient along with you 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, colectomy d/t mass-wasn't told it was cancerous, ischemic heart disease, NIDDM, deaf/chronic otitis media L ear, Deaf L ear, chronic low back/neck pain, vertigo, L hand NT R/T hx L wrist fx, RLS, varicosities, possible IBS/colitis/chrohn's per pt in the past, benign colon polyps, uses C-PAP, hypothyroid, sinus allergies, eczema, iron anemia with iron infusion, seasonal allergies History of Any Multi-Drug Resistant Organisms: None Reported Past Surgical History: Appendectomy, Bariatric Surgery, Bowel Resection, Cholecystectomy, Coronary Bypass/CABG, Heart Catheterization, Hernia Repair, Joint Replacement, Orthopedic Surgery, Tubal Ligation Additional Past Surgical History / Comment(s): 09/29/18 removal R ear ventilation tube, R tympanomastiodectomy, CABG x1 vessel (1992), bilateral shoulder surgery/ rt shoulder rotator cuff, bilateral carpal tunnel releases, L wrist surgery d/t injury, total L knee, lap banding, gastric bypass w/ lap band removal 2013, colonoscopy/benign polypectomy, R colectomy d/t mass, EGD, umbilical hernia repair, Rt Total Hip Past Anesthesia/Blood Transfusion Reactions: Motion Sickness Additional Past Anesthesia/Blood Transfusion Reaction / Comm: VERTIGO Past Psychological History: No Psychological Hx Reported Smoking Status: Former smoker Past Alcohol Use History: None Reported Past Drug Use History: None Reported - Past Family History Mother Additional Family Medical History / Comment(s): Pt states her mother never went to the doctor so she does not know of any medical problems. Mother lived to be 87yrs old. Father Additional Family Medical History / Comment(s): Father at the age of 67yrs, pt does not know cause of . Sister(s) Family Medical History: Cancer Additional Family Medical History / Comment(s): LUNG CA Medications and Allergies Home Medications Medication Instructions Recorded Confirmed Type Simvastatin [Zocor] 80 mg PO HS 03/21/14 07/04/21 History Ergocalciferol [Vitamin D2 50,000 unit PO MO 10/09/14 07/04/21 History (DRISDOL)] Levothyroxine Sodium [Synthroid] 150 mcg PO DAILY 10/09/14 07/04/21 History Glimepiride [Amaryl] 1 mg PO DAILY 10/08/15 07/04/21 History HYDROcodone/APAP 10-325MG [[place] 1 tab PO Q4H PRN 08/22/18 07/04/21 History 10-325] lisinopriL [Zestril] 5 mg PO DAILY@1200 08/22/18 07/04/21 History Zafirlukast 20 mg PO BID 08/22/19 07/04/21 History Aspirin EC [Ecotrin Low Dose] 81 mg PO DAILY #0 09/13/19 07/04/21 Rx Fluticasone Nasal [place] [Flonase 1 spray EA NOSTRIL DAILY PRN 06/22/20 07/04/21 History Nasal [place]] Carvedilol [Coreg] 6.25 mg PO BID 06/26/21 07/04/21 History Nitrofurantoin Monohyd/M-Cryst 100 mg PO Q12HR 5 Days #10 cap 06/26/21 07/04/21 Rx [Macrobid] Promethaz-Cod 6.25-10 mg/5 ml 5 ml PO TID PRN 06/26/21 07/04/21 History [Phenergan with Codeine] Multivitamins, Thera [Multivitamin 1 tab PO DAILY 07/04/21 07/04/21 History (formulary)] rOPINIRole HCL [Requip] 2 mg PO DAILY PRN 07/04/21 07/04/21 History Allergies Allergy/AdvReac Type Severity Reaction Status Date / Time allopurinol Allergy Itching Verified 07/04/21 12:05 cephalexin monohydrate Allergy Itching Verified 07/04/21 12:05 [From Keflex] clindamycin Allergy Itching Verified 07/04/21 12:05 NSAIDS (Non-Steroidal AdvReac Unknown STATES NO Verified 07/04/21 12:05 Anti-Inflamma NSAIDS DUE TO GASTRIC BYPASS ciprofloxacin [From Cipro] AdvReac Itching Verified 07/04/21 12:05 doxycycline AdvReac Itching Verified 07/04/21 12:05 Physical Exam Vitals: Vital Signs Temp Pulse Pulse Resp BP Pulse Ox 07/04/21 14:14 68 07/04/21 10:55 97.8 F 51 L 18 103/78 97 Intake and Output 07/04/21 07/04/21 07/04/21 06:59 14:59 22:59 Other: Weight 121.109 kg Results CBC & Chem 7: 07/04/21 11:46 07/04/21 11:46 Labs: Abnormal Lab Results - Last 24 Hours (Table) 07/04/21 07/04/21 07/04/21 Range/Units 11:46 11:46 12:55 APTT 20.8 L (22.0-30.0) sec Glucose 101 H (74-99) mg/dL Calcium 10.6 H (8.4-10.2) mg/dL TSH 0.129 L (0.465-4.680) mIU/L Free T3 pg/mL 2.7 L (2.8-5.3) pg/ml Urine Appearance Cloudy H (Clear) Urine Blood Small H (Negative) Ur Leukocyte Esterase Large H (Negative) Urine RBC 8 H (0-5) /hpf Urine WBC 95 H (0-5) /hpf Urine Bacteria Few H (None) /hpf Hyaline Casts 3 H (0-2) /lpf Urine Mucus Rare H (None) /hpf
--- NOTE | 2021-07-04 23:23 | MR ---
EXAMINATION TYPE: MR brain wo/w con DATE OF EXAM: 07/04/2021 COMPARISON: HISTORY: Probable obstructive hydrocephalus, symptomatic. CONTRAST: Standard multiplanar, multisequence MRI departmental protocol images were obtained without contrast a nd with 12 mL intravenous Gadavist gadolinium contrast. There is enlargement of the lateral third and fourth ventricles. There is mild cerebral atrophy. Ther e is no midline shift. There is no sign of intracranial hemorrhage. There is moderate increased signa l in the periventricular white matter with coalescent areas that measure up to 1.5 cm in thickness. T his is more noticeable in the frontal lobes. There is thinning of the corpus callosum. The brainstem is intact. The contrast images show no pathologic enhancement. There is normal enhancement of the venous sinuses . IMPRESSION: There is cerebral atrophy. There is hydrocephalus which is out of proportion to the degree of atrophy and consistent with some mild obstructive hydrocephalus. Periventricular white matter changes related to hydrocephalus and chronic small vessel ischemia. Hydrocephalus is increased compared to PET CT scan of 07/16/2018.
[2021-07-04] MEDS: AMPICILLIN-SULBACTAM 3 GM in SODIUM CHLORIDE 0.9% 100 ML IVPB SCH (23:39)
[2021-07-05] MEDS: HYDROcodone/APAP 10-325MG 1 EACH TAB PO PRN ×3 (02:36→20:00)
[2021-07-05] MEDS: SODIUM CHLORIDE 0.9% 1,000 ML IV SCH (05:07)
[2021-07-05] MEDS ORDERED: GLIMEPIRIDE 1 MG TAB PO SCH (07:30)
[2021-07-05] MEDS ORDERED: LEVOTHYROXINE 75 MCG TAB PO SCH (07:30)
[2021-07-05] MEDS: AMPICILLIN-SULBACTAM 3 GM in SODIUM CHLORIDE 0.9% 100 ML IVPB SCH ×2 (07:36→17:20)
[2021-07-05 07:55] LABS: Basophils % (A) 0 %; Eosinophils # (A) 0.1 k/uL (0-0.7); Eosinophils % (A) 3 %; HCT 37.6 % (34.0-46.0); HGB 12.5 gm/dL (11.4-16.0); Lymphocytes # (A) 1.6 k/uL (1.0-4.8); Lymphocytes % (A) 30 %; MCH 32.6 pg (25.0-35.0); MCHC 33.2 g/dL (31.0-37.0); MCV 98.3 fL (80.0-100.0); Mean Platelet Volume 7.2; Monocytes # (A) 0.5 k/uL (0-1.0); Monocytes % (A) 9 %; Neutrophils # (A) 2.9 k/uL (1.3-7.7); Neutrophils % (A) 55 %; Platelet Count 262 k/uL (150-450); RBC 3.83 m/uL (3.80-5.40); RDW 13.7 % (11.5-15.5); WBC 5.3 k/uL (3.8-10.6)
[2021-07-05 08:21] LABS: Glucose,Whole Blood 103 mg/dL (75-99)
[2021-07-05] MEDS ORDERED: ASPIRIN 81 MG PO SCH (09:00)
[2021-07-05] MEDS ORDERED: MULTIVITAMINS, THERA 1 EACH TAB PO SCH (09:00)
[2021-07-05 09:57] LABS: Folate, Serum >20.00 ng/mL (4.40-31.00)
[2021-07-05 11:52] LABS: African American GFR (CKD) 87.2 (60.0-200.0); Anion Gap 11.4 mmol/L (4.00-12.00); BUN/Creat Ratio 15.38 Ratio (12.00-20.00); Blood Urea Nitrogen 12.3 mg/dL (9.0-27.0); Calcium 9.7 mg/dL (8.7-10.3); Carbon Dioxide 22.6 mmol/L (21.6-31.8); Non-African American GFR(CKD) 75.2 (60.0-200.0); Potassium 4.3 mmol/L (3.5-5.5)
[2021-07-05] MEDS ORDERED: lisinopriL 5 MG TAB PO SCH (12:00)
[2021-07-05 13:15] LABS: Glucose,Whole Blood 114 mg/dL (75-99)
[2021-07-05] MEDS: carvediloL 6.25 MG TAB PO SCH ×2 (13:43→18:25)
--- NOTE | 2021-07-05 15:31 | P.PN ---
Subjective Progress Note Date: 07/05/21 07/05/2021: This is a Tele-neurology follow up performed today on . Patient's son was present today. Patient denies any worsening of her condition. She was able to get up from her bed, and walk by herself to the bedside commode. Denies any new numbness tingling weakness. No headache. No complain of dizziness. Objective - Vital Signs Vital signs: Vital Signs Temp 97.9 F 07/05/21 05:00 Pulse 52 L 07/05/21 09:39 Resp 18 07/05/21 05:00 BP 127/56 07/05/21 09:39 Pulse Ox 97 07/05/21 09:39 Intake & Output 07/04/21 07/05/21 07/05/21 18:59 06:59 18:59 Intake Total 450 Balance 450 Weight 121.109 kg Intake: Oral 450 Other: Voiding Method Bedside Commode # Voids 3 # Bowel Movements 1 - Exam Patient is laying comfortably in the bed. Mentation is normal. Speech and language functions are normal. Patient's muscle tone is normal, with no evidence of parkinsonism. Detailed examination deferred. - Labs CBC & Chem 7: 07/05/21 07:02 07/05/21 07:02 Labs: Abnormal Lab Results - Last 24 Hours (Table) 07/04/21 07/04/21 07/04/21 Range/Units 11:46 11:46 11:46 APTT 20.8 L (22.0-30.0) sec Glucose 101 H (74-99) mg/dL POC Glucose (mg/dL) (75-99) mg/dL Calcium 10.6 H (8.4-10.2) mg/dL Vitamin B12 1354.0 H (200.0-944.0) pg/mL TSH 0.129 L (0.465-4.680) mIU/L Free T3 pg/mL 2.7 L (2.8-5.3) pg/ml Urine Appearance (Clear) Urine Blood (Negative) Ur Leukocyte Esterase (Negative) Urine RBC (0-5) /hpf Urine WBC (0-5) /hpf Urine Bacteria (None) /hpf Hyaline Casts (0-2) /lpf Urine Mucus (None) /hpf 07/04/21 07/05/21 Range/Units 12:55 08:20 APTT (22.0-30.0) sec Glucose (74-99) mg/dL POC Glucose (mg/dL) 103 H (75-99) mg/dL Calcium (8.4-10.2) mg/dL Vitamin B12 (200.0-944.0) pg/mL TSH (0.465-4.680) mIU/L Free T3 pg/mL (2.8-5.3) pg/ml Urine Appearance Cloudy H (Clear) Urine Blood Small H (Negative) Ur Leukocyte Esterase Large H (Negative) Urine RBC 8 H (0-5) /hpf Urine WBC 95 H (0-5) /hpf Urine Bacteria Few H (None) /hpf Hyaline Casts 3 H (0-2) /lpf Urine Mucus Rare H (None) /hpf Microbiology - Last 24 Hours (Table) 07/04/21 12:55 Urine Culture - Preliminary Urine,Clean Catch Assessment and Plan Assessment: * 71-year-old female, otherwise healthy, has developed 1 week history of significant gait imbalance, frequent falls and bladder control issues with urgency. Computed tomography scan of the head reveals evidence of hydrocephalus. As the fourth ventricle appears normal size, therefore obstructive hydrocephalus is a possibility. No evidence of pineal mass on MRI. * Diabetes * Obesity Plan: * MRI of the brain with and without contrast was performed today. It again revealed evidence of significant hydrocephalus, probable some transependymal CSF flow. The fourth ventricle is normal in size, therefore obstructive hydrocephalus is a likely possibility. However no mass lesions identified on the MRI. No pineal mass. Patient needs to be transferred to higher level of care. I spoke to Dr. Sin at [facility], who agreed for transfers. Patient will be admitted under internal medicine Dr. Amador. * B12 1354, folate > 20. TSH is slightly low 0.129, with normal free T4 1.17. * Neurologically clear to transfer to higher level of care.
[2021-07-05 17:10] LABS: Glucose,Whole Blood 105 mg/dL (75-99)
[2021-07-05] MEDS: ATORVASTATIN 40 MG TAB PO SCH (20:00)
[2021-07-05] MEDS: MONTELUKAST 10 MG TAB PO SCH (20:00)
--- NOTE | 2021-07-05 20:25 | PN ---
PROGRESS NOTE DATE OF SERVICE: 07/05/2021 REASON FOR FOLLOWUP: Urinary tract infection. INTERVAL HISTORY: Patient is afebrile. The patient is currently breathing comfortably. The patient denies having any chest pain, shortness of breath or cough. No abdominal pain. No diarrhea. PHYSICAL EXAMINATION: Blood pressure 134/93 with a pulse of 73, temperature 98.1. She is 93% room air. General description is an elderly female lying in bed in no distress. Respiratory system: Unlabored breathing, clear to auscultation anteriorly. Heart S1, S2. Regular rate and rhythm. Abdomen soft, no tenderness. LABS: Urine cultures currently pending. DIAGNOSTIC IMPRESSION AND PLAN: Patient admitted to the hospital with weakness, lethargy, concerning for a symptomatic urinary tract infection. Recent culture positive for E coli, failing outpatient antibiotic therapy. Patient is currently covered with Unasyn to continue while waiting for the culture to finalize and monitor clinical course closely. MMODL / IJN: [id number] /
[2021-07-05 21:28] VITALS: BP 101/61; PULSE 94; RESP 20; TEMP 98
[2021-07-05 21:37] LABS: Glucose,Whole Blood 94 mg/dL (75-99)
--- NOTE | 2021-07-05 22:40 | PN ---
PROGRESS NOTE 71-year-old white female. CT scan shows normal-pressure hydrocephalus with increasing fluid buildup in the brain. Cardiovascular S1-S2, lungs rales at the bases. Hematology negative Homans. Psych: Fair mood and affect. Neurologic: Alert and orient x3. ASSESSMENT: 1. Normal-pressure hydrocephalus. 2. Urinary tract infection. 3. Weakness and imbalance and headache secondary to normal-pressure hydrocephalus. Continue current treatment. Await for transfer to neuro surgeon down at a tertiary center for surgery for a paired ventricular shunt. MMODL / IJN: [id number] /
[2021-07-07] MEDS ORDERED: ERGOCALCIFEROL 1,250 MCG (50,000 IU) CAPSULE PO SCH (09:00)
== END 2021-07-05 23:15 | disposition other institution (70) | DRG 872 ==
LOC: EC 10:19 → 5NMEDONC 15:20
PROVIDERS: ADMIT Family Medicine; ATTEND Family Medicine
DX: A41.51 Sepsis due to Escherichia coli [E. coli] (principal); G91.2 (Idiopathic) normal pressure hydrocephalus; N39.0 Urinary tract infection, site not specified; Z68.42 Body mass index [BMI] 45.0-49.9, adult; E03.9 Hypothyroidism, unspecified; E11.9 Type 2 diabetes mellitus without complications; Z20.822 Contact with and (suspected) exposure to COVID-19; H91.92 Unspecified hearing loss, left ear; I10 Essential (primary) hypertension; I25.10 Atherosclerotic heart disease of native coronary artery without angina pectoris; J44.9 Chronic obstructive pulmonary disease, unspecified; R29.6 Repeated falls; G25.81 Restless legs syndrome; E78.5 Hyperlipidemia, unspecified; E66.9 Obesity, unspecified; W19.XXXA Unspecified fall, initial encounter; R53.1 Weakness; K58.9 Irritable bowel syndrome, unspecified; J30.2 Other seasonal allergic rhinitis; H66.92 Otitis media, unspecified, left ear; L30.9 Dermatitis, unspecified; G89.29 Other chronic pain; M54.9 Dorsalgia, unspecified; Y92.009 Unspecified place in unspecified non-institutional (private) residence as the place of occurrence of the external cause; Z79.82 Long term (current) use of aspirin; Z79.84 Long term (current) use of oral hypoglycemic drugs; Z79.890 Hormone replacement therapy; Z79.899 Other long term (current) drug therapy; Z85.72 Personal history of non-Hodgkin lymphomas; Z87.19 Personal history of other diseases of the digestive system; Z87.891 Personal history of nicotine dependence; Z88.1 Allergy status to other antibiotic agents; Z80.1 Family history of malignant neoplasm of trachea, bronchus and lung; Z91.81 History of falling; Z95.1 Presence of aortocoronary bypass graft; Z98.84 Bariatric surgery status; Z98.51 Tubal ligation status; Z90.49 Acquired absence of other specified parts of digestive tract; Z92.21 Personal history of antineoplastic chemotherapy; Z88.8 Allergy status to other drugs, medicaments and biological substances; Z88.6 Allergy status to analgesic agent
CPT/HCPCS: 36415; 70450; 70553; 71046; 80048; 80053; 81001; 82607; 82746; 83605; 83735; 84100; 84439; 84443; 84481; 84484; 85025; 85610; 85730; 87077; 87086; 87186; 87635; 93005; 99285

== ENCOUNTER → 2021-09-23 | Outpatient (CLI) | payer MEDICARE, OTHER ==
--- NOTE | 2021-09-24 09:12 | CT ---
EXAMINATION TYPE: CT brain wo con DATE OF EXAM: 09/23/2021 COMPARISON: 07/04/2021 HISTORY: 71-year-old female G91.1, Obstructive hydrocephalus TECHNIQUE: Examination was done in axial plane without intravenous contrast. Coronal and sagittal r econstructions performed. CT DLP: 1097.40 mGycm Automated exposure control for dose reduction was used. FINDINGS: Interval postoperative changes with right superior frontoparietal craniotomy and superior right front al tracy hole. There is some residual overlying soft tissue scalp swelling. Underlying foci of pneumocephalus along the right sided extra-axial space. There is also primarily hy podense subdural extra-axial fluid measuring 1.5 cm thick causing mass effect on the underlying brain parenchyma. Admixed subacute blood products characterized by isodensity. There is minimal 2 mm of leftward midline shift. Jorge Alberto's ratio now measures 0.30 versus 0.38, previously. Overall improvement in the ventricular calibe r. Minimal residual fullness of the ventricular system may remain. Focal rounded calcification anterior wall of the left petrous apex projecting into the left middle cr anial fossa measuring 7 mm is unchanged, probably a small meningioma. Moderate patchy periventricular white matter hypodensities persist but also show improvement compared to 07/04/2021. No herniation or acute blood products identified. Scattered mild mucosal thickening ethmoid air cells. Previous postresection changes right mastoid pro cess. Orbits and globes appear intact. IMPRESSION: 1. Interval right-sided craniotomy flap. There is underlying extra-axial fluid along the right convex ity measuring 1.5 cm thick comprised of subdural hygroma/chronic hematoma and some admixed subacute b lood. This causes mass effect onto the underlying brain parenchyma with minimal 2 mm of leftward midl ine shift. No herniation. Mild scattered pneumocephalus also noted. 2. Overall improvement in the ventricular caliber. Residual mild fullness of the ventricular system w ith evidence for racial improved from 0.38 now at 0.30. Some improvement in the degree of periventric ular hypodensity.
== END | disposition home or self-care (01) ==
LOC: RADCTMAIN 17:05
PROVIDERS: ATTEND Neurological Surgery
DX: I62.03 Nontraumatic chronic subdural hemorrhage (principal); G93.89 Other specified disorders of brain
CPT/HCPCS: 70450

== ENCOUNTER → 2021-12-15 | Outpatient (CLI) | payer MEDICARE, OTHER ==
--- NOTE | 2021-12-15 10:35 | CT ---
EXAMINATION TYPE: CT thoracic spine wo con DATE OF EXAM: 12/15/2021 COMPARISON: None HISTORY: Compression fracture, upper abdominal pain CT DLP: 1.6 mGycm Automated exposure control for dose reduction was used. Helical imaging through the thoracic spine. C oronal and sagittal reconstructions. FINDINGS: There is a spinal curvature. 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 Thoracic vertebral bodies show preserved height and alignment. Disc spaces are relat ively maintained. No significant foraminal encroachment or spinal stenosis. Thoracic vertebral bodies are intact. Superior endplate T4 shows a probable Schmorl's node, is mild anterior wedging which may be physiologic. There is artifact due to patient's right shoulder arthroplasty. Patient is post median sternotomy. Pr ominence of pulmonary artery could be due to pulmonary artery hypertension. There is coronary artery calcification. Postop changes are noted in the upper abdomen, patient is post gastric bypass. Metalli c densities present within the liver. Patient is post cholecystectomy. Cortical cyst present posterio rly at the upper pole the left kidney. 3 mm subpleural nodule present posteriorly on axial image 53 w ithin the right lower lobe. IMPRESSION: NO ACUTE ABNORMALITY IS EVIDENT, BONE SCAN OR MRI COULD BE PERFORMED FOR ADDITIONAL EVALUATION, NONSP ECIFIC FINDINGS DESCRIBED ABOVE. POSTOP CHANGES AND ADDITIONAL FINDINGS ABOVE.
== END | disposition home or self-care (01) ==
LOC: RADCTMAIN 07:14
PROVIDERS: ATTEND Family Medicine
DX: M48.14 Ankylosing hyperostosis [Forestier], thoracic region (principal); M43.8X4 Other specified deforming dorsopathies, thoracic region; M47.814 Spondylosis without myelopathy or radiculopathy, thoracic region; Z96.611 Presence of right artificial shoulder joint; Z98.84 Bariatric surgery status; Z90.49 Acquired absence of other specified parts of digestive tract
CPT/HCPCS: 36415; 72128; 82565; 84520

== ENCOUNTER 2021-12-28 14:55 | Inpatient (IN) | payer MEDICARE, OTHER ==
[2021-12-28 15:50] LABS: Basophils % (A) 0 %; Eosinophils # (A) 0.1 k/uL (0-0.7); Eosinophils % (A) 1 %; HCT 40.8 % (34.0-46.0); Lymphocytes # (A) 0.8 k/uL (1.0-4.8); Lymphocytes % (A) 16 %; MCH 32.3 pg (25.0-35.0); MCHC 31.9 g/dL (31.0-37.0); MCV 101.4 fL (80.0-100.0); Macrocytosis Slight; Mean Platelet Volume 7.3; Monocytes # (A) 0.4 k/uL (0-1.0); Monocytes % (A) 7 %; Neutrophils # (A) 3.5 k/uL (1.3-7.7); Neutrophils % (A) 72 %; Platelet Count 219 k/uL (150-450); RBC 4.02 m/uL (3.80-5.40); RDW 14.9 % (11.5-15.5); WBC 4.8 k/uL (3.8-10.6)
[2021-12-28 15:59] LABS: ALT 14 U/L (4-34); AST 27 U/L (14-36); African American GFR (CKD) >90 (>60 ml/min/1.73 sqM); Albumin 3.7 g/dL (3.5-5.0); Alkaline Phosphatase 78 U/L (38-126); Anion Gap 5 mmol/L; Blood Urea Nitrogen 11 mg/dL (7-17); Calcium 9.3 mg/dL (8.4-10.2); Carbon Dioxide 26 mmol/L (22-30); Chloride 109 mmol/L (98-107); Glucose 103 mg/dL (74-99); Non-African American GFR(CKD) >90 (>60 ml/min/1.73 sqM); Potassium 3.9 mmol/L (3.5-5.1); Sodium 140 mmol/L (137-145); Total Bilirubin 0.3 mg/dL (0.2-1.3)
[2021-12-28 16:04] LABS: INR 0.9 (<1.2); Prothrombin Time 10.2 sec (9.0-12.0)
[2021-12-28 16:11] LABS: Partial Thromboplastin Time 18.8 sec (22.0-30.0)
--- NOTE | 2021-12-28 16:22 | ED ---
General Adult HPI - General Chief complaint: Chest Pain Stated complaint: NASEEM,Cough Time Seen by Provider: 12/28/21 16:15 Source: patient Mode of arrival: ambulatory Limitations: no limitations - History of Present Illness Initial comments: Patient presents to the ED complaining of having a cough, wheezing and dyspnea since yesterday. Patient also states that she has had bilateral upper abdominal pain when laying on her sides for the past couple of months. Patient states that she has a history of lymphoma, and she states that she has been in [facility] for the past 3 years or so. Patient states that her PCP, Dr. Padilla Santiago, advised her to come to the ED today for hospital admission. Patient states that she is fully vaccinated and boosted for Covid. Patient denies known sick contact. Patient denies fever, headache, focal numbness/weakness/neuro deficit, hemoptysis, palpitations, dizziness, nausea/vomiting/diaphoresis, lower abdominal pain, back or flank pain, diarrhea or constipation, bloody or melanotic stool, dysuria/hematuria/urinary frequency/urinary symptoms, decreased urine output, leg or calf swelling or pain, or any other symptoms or complaints. Patient states that she has been using her inhaler and nebulizer machine at home with minimal relief. - Related Data Home Medications Medication Instructions Recorded Confirmed Simvastatin [Zocor] 80 mg PO HS 03/21/14 07/04/21 Ergocalciferol [Vitamin D2 50,000 unit PO MO 10/09/14 07/04/21 (DRISDOL)] Levothyroxine Sodium [Synthroid] 150 mcg PO DAILY 10/09/14 07/04/21 Glimepiride [Amaryl] 1 mg PO DAILY 10/08/15 07/04/21 HYDROcodone/APAP 10-325MG [[place] 1 tab PO Q4H PRN 08/22/18 07/04/21 10-325] lisinopriL [Zestril] 5 mg PO DAILY@1200 08/22/18 07/04/21 Zafirlukast 20 mg PO BID 08/22/19 07/04/21 Fluticasone Nasal [place] [Flonase 1 spray EA NOSTRIL DAILY PRN 06/22/20 07/04/21 Nasal [place]] Carvedilol [Coreg] 6.25 mg PO BID 06/26/21 07/04/21 Promethaz-Cod 6.25-10 mg/5 ml 5 ml PO TID PRN 06/26/21 07/04/21 [Phenergan with Codeine] Multivitamins, Thera [Multivitamin 1 tab PO DAILY 07/04/21 07/04/21 (formulary)] rOPINIRole HCL [Requip] 2 mg PO DAILY PRN 07/04/21 07/04/21 Previous Rx's Medication Instructions Recorded Aspirin EC [Ecotrin Low Dose] 81 mg PO DAILY #0 09/13/19 Nitrofurantoin Monohyd/M-Cryst 100 mg PO Q12HR 5 Days #10 cap 06/26/21 [Macrobid] Allergies Allergy/AdvReac Type Severity Reaction Status Date / Time allopurinol Allergy Itching Verified 12/28/21 15:14 cephalexin monohydrate Allergy Itching Verified 12/28/21 15:14 [From Keflex] clindamycin Allergy Itching Verified 12/28/21 15:14 NSAIDS (Non-Steroidal AdvReac Unknown STATES NO Verified 12/28/21 15:14 Anti-Inflamma NSAIDS DUE TO GASTRIC BYPASS ciprofloxacin [From Cipro] AdvReac Itching Verified 12/28/21 15:14 doxycycline AdvReac Itching Verified 12/28/21 15:14 Review of Systems ROS Statement: Those systems with pertinent positive or pertinent negative responses have been documented in the HPI. ROS Other: All systems not noted in ROS Statement are negative. 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, colectomy d/t mass-wasn't told it was cancerous, ischemic heart disease, NIDDM, deaf/chronic otitis media L ear, Deaf L ear, chronic low back/neck pain, vertigo, L hand NT R/T hx L wrist fx, RLS, varicosities, possible IBS/colitis/chrohn's per pt in the past, benign colon polyps, uses C-PAP, hypothyroid, sinus allergies, eczema, iron anemia with iron infusion, seasonal allergies History of Any Multi-Drug Resistant Organisms: None Reported Past Surgical History: Appendectomy, Bariatric Surgery, Bowel Resection, Cholecystectomy, Coronary Bypass/CABG, Heart Catheterization, Hernia Repair, Joint Replacement, Orthopedic Surgery, Tubal Ligation Additional Past Surgical History / Comment(s): 09/29/18 removal R ear ventilation tube, R tympanomastiodectomy, CABG x1 vessel (1992), bilateral shoulder surgery/ rt shoulder rotator cuff, bilateral carpal tunnel releases, L wrist surgery d/t injury, total L knee, lap banding, gastric bypass w/ lap band removal 2013, colonoscopy/benign polypectomy, R colectomy d/t mass, EGD, umbilical hernia repair, Rt Total Hip Past Anesthesia/Blood Transfusion Reactions: Motion Sickness Additional Past Anesthesia/Blood Transfusion Reaction / Comment(s): VERTIGO Past Psychological History: No Psychological Hx Reported Smoking Status: Former smoker Past Alcohol Use History: None Reported Past Drug Use History: None Reported - Past Family History Mother Additional Family Medical History / Comment(s): Pt states her mother never went to the doctor so she does not know of any medical problems. Mother lived to be 87yrs old. Father Additional Family Medical History / Comment(s): Father at the age of 67yrs, pt does not know cause of . Sister(s) Family Medical History: Cancer Additional Family Medical History / Comment(s): LUNG CA General Exam Limitations: no limitations General appearance: alert, in no apparent distress Head exam: Present: atraumatic, normocephalic Eye exam: Present: normal appearance, EOMI ENT exam: Present: normal oropharynx, mucous membranes moist Neck exam: Present: other (Trachea is in midline) Respiratory exam: Present: other (Bilateral expiratory wheezes). Absent: respiratory distress, rales, rhonchi, stridor Cardiovascular Exam: Present: regular rate, normal rhythm, normal heart sounds, other (Normal radial pulses bilaterally) GI/Abdominal exam: Present: soft, normal bowel sounds, other (Diffuse upper abdominal tenderness; obese abdomen). Absent: guarding, rebound Extremities exam: Present: other (Negative Homans sign bilaterally). Absent: tenderness, pedal edema, calf tenderness Neurological exam: Present: alert, oriented X3. Absent: motor sensory deficit Psychiatric exam: Present: normal affect, normal mood Skin exam: Present: warm, dry, intact, normal color Course Vital Signs 05/15/22 05/15/22 05/15/22 15:12 16:58 17:07 Temperature 98.4 F Pulse Rate 63 80 82 Respiratory 24 Rate Blood Pressure 138/88 O2 Sat by Pulse 96 Oximetry 12/28/21 12/28/21 17:24 19:36 Temperature Pulse Rate 69 74 Respiratory 18 18 Rate Blood Pressure 147/66 149/67 O2 Sat by Pulse 97 95 Oximetry - Reevaluation(s) Reevaluation #1: 12/28/21 20:10 Case, H&P, test results and ED management were discussed with Dr. Padilla Santiago. He recommends/accepts hospital admission. He has no further recommendations at this time. 12/28/21 20:13 Patient states that her dyspnea has improved with the DuoNeb treatment that she was given in the ED. Patient denies development of any new symptoms while in the ED. Patient remains alert and breathing comfortably with a normal room air oxygen saturation. Patient is aware of her test results, and she agrees with hospital admission at this time. EKG Findings - EKG Comments: EKG Findings:: Normal sinus rhythm, ventricular rate of 71 bpm, no ectopy, normal DE and QRS intervals, normal QT interval, anterolateral ST and T-wave abnormality (similar in appearance to 07/04/2021 EKG), normal axis Medical Decision Making - Medical Decision Making I suspect that the patient's respiratory symptoms are likely secondary to COVID- 19 infection and asthma exacerbation. Patient has been treated with a DuoNeb treatment and IV Solu-Medrol in the ED. Patient was not given monoclonal antibody therapy given her admission to the hospital. Patient has a nonsurgical abdominal exam, and her CT abdomen/pelvis does not demonstrate a definite etiology of the patient's pain. Patient is noted to have a UTI for which she was treated with IV Zosyn (given her cephalosporin and fluoroquinolone ALLERGIES) in the ED. Dr. Santiago has accepted hospital admission. - Lab Data Result diagrams: 12/28/21 15:44 12/28/21 15:44 Lab Results 12/28/21 12/28/21 12/28/21 Range/Units 15:44 15:44 15:44 WBC 4.8 (3.8-10.6) k/uL RBC 4.02 (3.80-5.40) m/uL Hgb 13.0 (11.4-16.0) gm/dL Hct 40.8 (34.0-46.0) % MCV 101.4 H (80.0-100.0) fL MCH 32.3 (25.0-35.0) pg MCHC 31.9 (31.0-37.0) g/dL RDW 14.9 (11.5-15.5) % Plt Count 219 (150-450) k/uL MPV 7.3 Neutrophils % 72 % Lymphocytes % 16 % Monocytes % 7 % Eosinophils % 1 % Basophils % 0 % Neutrophils # 3.5 (1.3-7.7) k/uL Lymphocytes # 0.8 L (1.0-4.8) k/uL Monocytes # 0.4 (0-1.0) k/uL Eosinophils # 0.1 (0-0.7) k/uL Basophils # 0.0 (0-0.2) k/uL Macrocytosis Slight PT 10.2 (9.0-12.0) sec INR 0.9 (<1.2) APTT 18.8 L (22.0-30.0) sec Sodium 140 (137-145) mmol/L Potassium 3.9 (3.5-5.1) mmol/L Chloride 109 H (98-107) mmol/L Carbon Dioxide 26 (22-30) mmol/L Anion Gap 5 mmol/L BUN 11 (7-17) mg/dL Creatinine 0.67 (0.52-1.04) mg/dL Est GFR (CKD-EPI)AfAm >90 (>60 ml/min/1.73 sqM) Est GFR (CKD-EPI)NonAf >90 (>60 ml/min/1.73 sqM) Glucose 103 H (74-99) mg/dL Plasma Lactic Acid [place] (0.7-2.0) mmol/L Calcium 9.3 (8.4-10.2) mg/dL Magnesium 2.0 (1.6-2.3) mg/dL Total Bilirubin 0.3 (0.2-1.3) mg/dL AST 27 (14-36) U/L ALT 14 (4-34) U/L Alkaline Phosphatase 78 (38-126) U/L Troponin I (0.000-0.034) ng/mL NT-Pro-B Natriuret Pep pg/mL Total Protein 6.0 L (6.3-8.2) g/dL Albumin 3.7 (3.5-5.0) g/dL Lipase (23-300) U/L Urine Color Urine Appearance (Clear) Urine pH (5.0-8.0) Ur Specific [place] (1.001-1.035) Urine Protein (Negative) Urine Glucose (UA) (Negative) Urine Ketones (Negative) Urine Blood (Negative) Urine Nitrite (Negative) Urine Bilirubin (Negative) Urine Urobilinogen (<2.0) mg/dL Ur Leukocyte Esterase (Negative) Urine RBC (0-5) /hpf Urine WBC (0-5) /hpf Ur Squamous Epith Cells (0-4) /hpf Urine Bacteria (None) /hpf Urine Mucus (None) /hpf Coronavirus (PCR) (Not Detectd) Influenza Type A RNA (Not Detectd) Influenza Type B (PCR) (Not Detectd) 12/28/21 12/28/21 12/28/21 Range/Units 15:44 15:44 17:22 WBC (3.8-10.6) k/uL RBC (3.80-5.40) m/uL Hgb (11.4-16.0) gm/dL Hct (34.0-46.0) % MCV (80.0-100.0) fL MCH (25.0-35.0) pg MCHC (31.0-37.0) g/dL RDW (11.5-15.5) % Plt Count (150-450) k/uL MPV Neutrophils % % Lymphocytes % % Monocytes % % Eosinophils % % Basophils % % Neutrophils # (1.3-7.7) k/uL Lymphocytes # (1.0-4.8) k/uL Monocytes # (0-1.0) k/uL Eosinophils # (0-0.7) k/uL Basophils # (0-0.2) k/uL Macrocytosis PT (9.0-12.0) sec INR (<1.2) APTT (22.0-30.0) sec Sodium (137-145) mmol/L Potassium (3.5-5.1) mmol/L Chloride (98-107) mmol/L Carbon Dioxide (22-30) mmol/L Anion Gap mmol/L BUN (7-17) mg/dL Creatinine (0.52-1.04) mg/dL Est GFR (CKD-EPI)AfAm (>60 ml/min/1.73 sqM) Est GFR (CKD-EPI)NonAf (>60 ml/min/1.73 sqM) Glucose (74-99) mg/dL Plasma Lactic Acid [place] 0.9 (0.7-2.0) mmol/L Calcium (8.4-10.2) mg/dL Magnesium (1.6-2.3) mg/dL Total Bilirubin (0.2-1.3) mg/dL AST (14-36) U/L ALT (4-34) U/L Alkaline Phosphatase (38-126) U/L Troponin I <0.012 (0.000-0.034) ng/mL NT-Pro-B Natriuret Pep pg/mL Total Protein (6.3-8.2) g/dL Albumin (3.5-5.0) g/dL Lipase 135 (23-300) U/L Urine Color Urine Appearance (Clear) Urine pH (5.0-8.0) Ur Specific [place] (1.001-1.035) Urine Protein (Negative) Urine Glucose (UA) (Negative) Urine Ketones (Negative) Urine Blood (Negative) Urine Nitrite (Negative) Urine Bilirubin (Negative) Urine Urobilinogen (<2.0) mg/dL Ur Leukocyte Esterase (Negative) Urine RBC (0-5) /hpf Urine WBC (0-5) /hpf Ur Squamous Epith Cells (0-4) /hpf Urine Bacteria (None) /hpf Urine Mucus (None) /hpf Coronavirus (PCR) (Not Detectd) Influenza Type A RNA (Not Detectd) Influenza Type B (PCR) (Not Detectd) 12/28/21 12/28/21 12/28/21 Range/Units 17: 17: 17:23 WBC (3.8-10.6) k/uL RBC (3.80-5.40) m/uL Hgb (11.4-16.0) gm/dL Hct (34.0-46.0) % MCV (80.0-100.0) fL MCH (25.0-35.0) pg MCHC (31.0-37.0) g/dL RDW (11.5-15.5) % Plt Count (150-450) k/uL MPV Neutrophils % % Lymphocytes % % Monocytes % % Eosinophils % % Basophils % % Neutrophils # (1.3-7.7) k/uL Lymphocytes # (1.0-4.8) k/uL Monocytes # (0-1.0) k/uL Eosinophils # (0-0.7) k/uL Basophils # (0-0.2) k/uL Macrocytosis PT (9.0-12.0) sec INR (<1.2) APTT (22.0-30.0) sec Sodium (137-145) mmol/L Potassium (3.5-5.1) mmol/L Chloride (98-107) mmol/L Carbon Dioxide (22-30) mmol/L Anion Gap mmol/L BUN (7-17) mg/dL Creatinine (0.52-1.04) mg/dL Est GFR (CKD-EPI)AfAm (>60 ml/min/1.73 sqM) Est GFR (CKD-EPI)NonAf (>60 ml/min/1.73 sqM) Glucose (74-99) mg/dL Plasma Lactic Acid [place] (0.7-2.0) mmol/L Calcium (8.4-10.2) mg/dL Magnesium (1.6-2.3) mg/dL Total Bilirubin (0.2-1.3) mg/dL AST (14-36) U/L ALT (4-34) U/L Alkaline Phosphatase (38-126) U/L Troponin I (0.000-0.034) ng/mL NT-Pro-B Natriuret Pep 370 pg/mL Total Protein (6.3-8.2) g/dL Albumin (3.5-5.0) g/dL Lipase (23-300) U/L Urine Color Urine Appearance (Clear) Urine pH (5.0-8.0) Ur Specific [place] (1.001-1.035) Urine Protein (Negative) Urine Glucose (UA) (Negative) Urine Ketones (Negative) Urine Blood (Negative) Urine Nitrite (Negative) Urine Bilirubin (Negative) Urine Urobilinogen (<2.0) mg/dL Ur Leukocyte Esterase (Negative) Urine RBC (0-5) /hpf Urine WBC (0-5) /hpf Ur Squamous Epith Cells (0-4) /hpf Urine Bacteria (None) /hpf Urine Mucus (None) /hpf Coronavirus (PCR) Detected A (Not Detectd) Influenza Type A RNA Not Detected (Not Detectd) Influenza Type B (PCR) Not Detected (Not Detectd) 12/28/21 Range/Units 18:06 WBC (3.8-10.6) k/uL RBC (3.80-5.40) m/uL Hgb (11.4-16.0) gm/dL Hct (34.0-46.0) % MCV (80.0-100.0) fL MCH (25.0-35.0) pg MCHC (31.0-37.0) g/dL RDW (11.5-15.5) % Plt Count (150-450) k/uL MPV Neutrophils % % Lymphocytes % % Monocytes % % Eosinophils % % Basophils % % Neutrophils # (1.3-7.7) k/uL Lymphocytes # (1.0-4.8) k/uL Monocytes # (0-1.0) k/uL Eosinophils # (0-0.7) k/uL Basophils # (0-0.2) k/uL Macrocytosis PT (9.0-12.0) sec INR (<1.2) APTT (22.0-30.0) sec Sodium (137-145) mmol/L Potassium (3.5-5.1) mmol/L Chloride (98-107) mmol/L Carbon Dioxide (22-30) mmol/L Anion Gap mmol/L BUN (7-17) mg/dL Creatinine (0.52-1.04) mg/dL Est GFR (CKD-EPI)AfAm (>60 ml/min/1.73 sqM) Est GFR (CKD-EPI)NonAf (>60 ml/min/1.73 sqM) Glucose (74-99) mg/dL Plasma Lactic Acid [place] (0.7-2.0) mmol/L Calcium (8.4-10.2) mg/dL Magnesium (1.6-2.3) mg/dL Total Bilirubin (0.2-1.3) mg/dL AST (14-36) U/L ALT (4-34) U/L Alkaline Phosphatase (38-126) U/L Troponin I (0.000-0.034) ng/mL NT-Pro-B Natriuret Pep pg/mL Total Protein (6.3-8.2) g/dL Albumin (3.5-5.0) g/dL Lipase (23-300) U/L Urine Color Yellow Urine Appearance Cloudy H (Clear) Urine pH 6.0 (5.0-8.0) Ur Specific [place] 1.018 (1.001-1.035) Urine Protein Negative (Negative) Urine Glucose (UA) Negative (Negative) Urine Ketones Negative (Negative) Urine Blood Small H (Negative) Urine Nitrite Positive H (Negative) Urine Bilirubin Negative (Negative) Urine Urobilinogen <2.0 (<2.0) mg/dL Ur Leukocyte Esterase Small H (Negative) Urine RBC 5 (0-5) /hpf Urine WBC 14 H (0-5) /hpf Ur Squamous Epith Cells 4 (0-4) /hpf Urine Bacteria Rare H (None) /hpf Urine Mucus Rare H (None) /hpf Coronavirus (PCR) (Not Detectd) Influenza Type A RNA (Not Detectd) Influenza Type B (PCR) (Not Detectd) - Radiology Data Chest x-ray: No active cardiopulmonary disease. Normal heart. No change. CT abdomen/pelvis with IV contrast: Nonobstructing left renal calculus. Sigmoid diverticulosis without diverticulitis. No sign of recurrent tumor in this patient with a history of lymphoma. Disposition Clinical Impression: Wheezing, Abdominal pain, Asthma exacerbation, COVID-19, UTI (urinary tract infection) Disposition: ADMITTED IP TO THIS HOSP Condition: Stable Is patient prescribed a controlled substance at d/c from ED?: No Referrals: Padilla Santiago MD [Primary Care Provider] - 1-2 days Time of Disposition: 20:11
[2021-12-28] MEDS ORDERED: IPRATROPIUM-ALBUTEROL 3 ML NEB INHALATION STA (16:27)
[2021-12-28] MEDS ORDERED: methylPREDNISolone SOD SUCCI 125 MG/2 ML VIAL IV STA (16:27)
--- NOTE | 2021-12-28 18:14 | CT ---
EXAMINATION TYPE: CT abdomen pelvis w con DATE OF EXAM: 12/28/2021 COMPARISON: None HISTORY: Upper abdominal pain, cough, SOB CT DLP: 2909.7 mGycm Automated exposure control for dose reduction was used. CONTRAST: Performed with IV Contrast, patient injected with 100 mL of Isovue 300. Images obtained from the diaphragm to the floor the pelvis with IV contrast. Lung bases are clear. No pleural effusion. There is mild subsegmental atelectasis lateral left lung b ase. Heart size is fairly normal. No pericardial effusion. There is 1 cm calcification in the anterior right lobe of the liver. This is probably a granuloma. Sp luisa is intact. There are clips from gastric bariatric surgery. There is no pancreatic mass. The bile ducts are not dilated. There is no adrenal mass. Kidneys show satisfactory contrast opacification. There is no hydronephrosis. There is 1 cm calculus in the lower pole left kidney. There is 3 cm cyst posterior left kidney. There is 4 cm cyst lateral r ight kidney. Ureters are not dilated. Delayed images show normal renal excretion. There is right hip prosthesis with metal artifact. Urinary bladder is empty. No pelvic mass. Uterus appears anteverted. No free fluid in the pelvis. There are numerous sigmoid diverticula. No diverticulitis. No pelvic lym phadenopathy. No retroperitoneal adenopathy. The lumbar vertebra have normal alignment. No compression fracture. Facet joints are intact. Bony pel vis shows no sign of a fracture. Appendix not seen. No sign of thickened appendix. IMPRESSION: Nonobstructing left renal calculus. Sigmoid diverticulosis without diverticulitis. No sign of recurre nt tumor in this patient with a history of lymphoma.
[2021-12-28 18:18] LABS: Appearance,Urine Cloudy (Clear); Bacteria,Urine Rare /hpf; Bilirubin,Urine Negative (Negative); Blood,Urine Small (Negative); Color,Urine Yellow; Glucose,Urine (UA) Negative (Negative); Ketones,Urine Negative (Negative); Leukocyte Esterase,Urine Small (Negative); Mucus,Urine Rare /hpf; Nitrite,Urine Positive (Negative); Protein,Urine Negative (Negative); RBC,Urine 5 /hpf (0-5); Specific Gravity,Urine 1.018 (1.001-1.035); Squamous Epithelial Cell,Urine 4 /hpf (0-4); Urobilinogen,Urine <2.0 mg/dL (<2.0); WBC,Urine 14 /hpf (0-5)
--- NOTE | 2021-12-28 19:43 | XR ---
EXAMINATION TYPE: XR chest 2V DATE OF EXAM: 12/28/2021 COMPARISON: 07/04/2021 HISTORY: Difficulty breathing TECHNIQUE: 2 views FINDINGS: Heart is normal. Lungs are clear of infiltrate. No heart failure. There are sternal wires. There is right shoulder prosthesis. There are chest leads. Bony thorax is intact. IMPRESSION: No active cardiomegaly disease. Normal heart. No change.
[2021-12-28] MEDS ORDERED: PIPERACILLIN-TAZOBACTAM 3.375 GM in SODIUM CHLORIDE 0.9% 100 ML IVPB STA (20:09)
[2021-12-28] MEDS ORDERED: IPRATROPIUM-ALBUTEROL 3 ML NEB INHALATION SCH (20:15)
[2021-12-28] MEDS: MONTELUKAST 10 MG TAB PO SCH (21:14)
[2021-12-28] MEDS: HYDROcodone/APAP 10-325MG 1 EACH TAB PO PRN (21:14)
[2021-12-28] MEDS ORDERED: IPRATROPIUM-ALBUTEROL 3 ML NEB INHALATION PRN (23:38)
[2021-12-29] MEDS: HYDROcodone/APAP 10-325MG 1 EACH TAB PO PRN ×5 (02:49→21:08)
[2021-12-29] MEDS ORDERED: ALBUTEROL HFA INHALER INHALATION PRN (03:06)
[2021-12-29] MEDS: ALBUTEROL HFA INHALER INHALATION SCH ×4 (07:21→19:13)
[2021-12-29] MEDS: TIOTROPIUM 2.5 MCG INHALER INHALATION SCH (07:22)
[2021-12-29] MEDS: BENZOCAINE/MENTHOL LOZENG 1 EACH LOZENGE MUCOUS MEM PRN ×2 (08:06→13:53)
[2021-12-29 09:37] LABS: Basophils # (A) 0 X 10*3/uL (0.00-0.10); Basophils % (A) 0 %; Eosinophils # (A) 0 X 10*3/uL (0.04-0.35); Eosinophils % (A) 0 %; HCT 38.5 % (37.2-46.3); Immature Grans, Automated 0.5 %; Lymphocytes # (A) 0.56 X 10*3/uL (0.90-5.00); Lymphocytes % (A) 14.7 %; MCH 31.4 pg (27.0-32.0); MCHC 31.2 g/dL (32.0-37.0); MCV 100.8 fL (80.0-97.0); Mean Platelet Volume 10.1 fL (9.5-12.2); Monocytes # (A) 0.31 X 10*3/uL (0.20-1.00); Monocytes % (A) 8.1 %; NRBC Per 100 WBC 0 /100 WBCS (0.0-0.0); Neutrophils # (A) 2.92 X 10*3/uL (1.80-7.70); Neutrophils % (A) 76.7 %; Platelet Count 217 X 10*3/uL (140-440); RBC 3.82 X 10*6/uL (4.10-5.20); RDW 15.2 % (11.5-14.5); WBC 3.81 X 10*3/uL (4.50-10.00)
[2021-12-29 09:50] LABS: ALT 16 U/L (8-44); AST 18 U/L (13-35); African American GFR (CKD) 95.3 (60.0-200.0); Albumin 3.9 g/dL (3.8-4.9); Albumin/Globulin Ratio 1.98 (1.60-3.17); Alkaline Phosphatase 81 U/L (41-126); BUN/Creat Ratio 15.34 Ratio (12.00-20.00); Blood Urea Nitrogen 11.4 mg/dL (9.0-27.0); Calcium 9.9 mg/dL (8.7-10.3); Carbon Dioxide 24.5 mmol/L (20.0-27.5); Chloride 107 mmol/L (96-109); Glucose 177 mg/dL (70-110); Non-African American GFR(CKD) 82.3 (60.0-200.0); Potassium 4.7 mmol/L (3.5-5.5); Sodium 142 mmol/L (135-145); Total Bilirubin <0.15 mg/dL (0.30-1.20); Total Protein 5.8 g/dL (6.2-8.2)
[2021-12-29] MEDS ORDERED: PANTOPRAZOLE 40 MG TABLET PO PRN (12:09)
[2021-12-29] MEDS ORDERED: HYDROcodone/APAP 10-325MG 1 EACH TAB PO PRN (12:09)
[2021-12-29] MEDS ORDERED: MECLIZINE 25 MG TAB PO PRN (12:09)
[2021-12-29] MEDS ORDERED: ERGOCALCIFEROL 1,250 MCG (50,000 IU) CAPSULE PO SCH (12:30)
[2021-12-29] MEDS: CYANOCOBALAMIN 500 MCG TAB PO SCH (13:11)
[2021-12-29] MEDS: prednisoLONE ACETATE 1% OPHTH DROPS 5 ML BTL LEFT EYE SCH ×3 (14:55→21:02)
[2021-12-29] MEDS: methylPREDNISolone SOD SUCCI 40 MG/ML 1 ML VIAL IV SCH ×2 (17:07→23:52)
[2021-12-29] MEDS: carvediloL 3.125 MG TAB PO SCH (17:07)
[2021-12-29] MEDS ORDERED: NON FORMULARY DRUG (Tiotropium 2.5 Mcg/Puff 10 PUFF Each) INHALATION SCH (20:00)
[2021-12-29] MEDS ORDERED: MONTELUKAST 10 MG TAB PO SCH (21:00)
[2021-12-29] MEDS: ATORVASTATIN 40 MG TAB PO SCH (21:02)
[2021-12-29] MEDS: PSYLLIUM HUSK 100% 6 GM PACKET PO SCH (21:02)
[2021-12-29] MEDS: MONTELUKAST 10 MG TAB PO SCH (21:02)
[2021-12-29] MEDS: INSULIN ASPART (NovoLOG) 100 UNIT/ML VIAL SQ SCH (21:11)
[2021-12-29 21:12] LABS: Glucose,Whole Blood 172 mg/dL (75-99)
--- NOTE | 2021-12-29 21:58 | P.CONS ---
History of Present Illness - Reason for Consult Consult date: 12/29/21 covid 19 Requesting physician: Padilla Santiago - Chief Complaint shortness of breath and cough x 1 day - History of Present Illness Patient is a 71-year female with a past medical history significant for COPD coronary artery disease diabetes mellitus patient is vaccinated for COVID-19 presenting to the hospital for evaluation of cough wheezing and shortness of breath this patient symptoms started yesterday and is 1 day before presentation the hospital patient also complaining of pain to the upper abdominal/bilateral lower rib cage for the patient has been sent to the ER patient describes the pain mostly from coughing more of a dull aching pain about 4-5 out of 10 no radiation patient denies any nausea no vomiting and did have some diarrhea but no blood or mucus in the stool patient is complaining of cough which is moderate intensity with occasional sputum production no hemoptysis patient presented to the hospital was afebrile and no fever have been recorded subsequently patient is currently satting 96 to 97% on room air patient did have a normal white count with lymphopenia creatinine has been normal liver enzymes are normal patient did have positive COVID test influenza PCR was negative urine mildly positive blood culture prevention currently pending patient did have a CT of abdominal pelvis lung bases are clear no effusion mild atelectasis did have evidence of nonobstructive left renal calculus segment diverticulosis without diverticulitis patient has been admitted to the hospital started on Solu-Medrol infectious he was consulted for further management, chest x-ray was negative for acute cardiopulmonary disease Review of Systems Positive point has been mentioned in the HPI rest of the systems are negative 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 deaf/chronic otitis media L ear, HABEMATOLEL R ear, chronic low back/neck pain, vertigo, L hand NT R/T hx L wrist fx, R ankle fractuer, RLS, varicosities, possible IBS/colitis/chrohn's per pt in the past, benign colon polyps, uses C-PAP, hypothyroid, sinus allergies, eczema, iron anemia with iron infusion, past UTI with sepsis, recent L eye infection/dryness. History of Any Multi-Drug Resistant Organisms: None Reported Past Surgical History: Appendectomy, Bariatric Surgery, Bowel Resection, Cholecystectomy, Coronary Bypass/CABG, Heart Catheterization, Hernia Repair, Joint Replacement, Orthopedic Surgery, Tubal Ligation Additional Past Surgical History / Comment(s): Brain surgery at [facility] for hydrocephalus then d/t blood at surgical site/drain placed per patient, 09/29/18 removal R ear ventilation tube, R tympanomastiodectomy, CABG x1 vessel (1992), bilateral shoulder surgery/ rt shoulder rotator cuff, bilateral carpal tunnel releases, L wrist surgery d/t injury, total L knee, total R hip, lap banding, gastric bypass w/ lap band removal 2013, colonoscopy/benign polypectomy, R colectomy d/t mass, EGD, umbilical hernia repair, pain clinic procedures Past Anesthesia/Blood Transfusion Reactions: Motion Sickness Additional Past Anesthesia/Blood Transfusion Reaction / Comm: VERTIGO Smoking Status: Former smoker - Past Family History Mother Additional Family Medical History / Comment(s): Pt states her mother never went to the doctor so she does not know of any medical problems. Mother lived to be 87yrs old. Father Additional Family Medical History / Comment(s): Father at the age of 67yrs, pt does not know cause of . Sister(s) Family Medical History: Cancer Additional Family Medical History / Comment(s): LUNG CA Medications and Allergies Home Medications Medication Instructions Recorded Confirmed Type Simvastatin [Zocor] 80 mg PO HS 03/21/14 12/28/21 History Ergocalciferol [Vitamin D2 50,000 unit PO MO 10/09/14 12/28/21 History (DRISDOL)] Levothyroxine Sodium [Synthroid] 150 mcg PO DAILY 10/09/14 12/28/21 History Glimepiride [Amaryl] 1 mg PO DAILY 10/08/15 12/28/21 History HYDROcodone/APAP 10-325MG [[place] 1 tab PO Q4-6H PRN 08/22/18 12/28/21 History 10-325] Zafirlukast 20 mg PO BID 08/22/19 12/28/21 History Aspirin EC [Ecotrin Low Dose] 81 mg PO DAILY #0 09/13/19 12/28/21 Rx Multivitamins, Thera [Multivitamin 1 tab PO DAILY 07/04/21 12/28/21 History (formulary)] Cyanocobalamin (Vitamin B-12) 1,000 mcg PO MOWEFR 12/28/21 12/28/21 History [Vitamin B-12] Ferrous Sulfate [Feosol] 325 mg PO DAILY 12/28/21 12/28/21 History Meclizine HCl 25 mg PO DAILY PRN 12/28/21 12/28/21 History Naloxone HCl [Narcan] 4 mg NASAL ONCE PRN 12/28/21 12/28/21 History Dhfnozgd-Oxfhbzkcx-Gsdngwpo 1 drop LEFT EYE HS 12/28/21 12/28/21 History [Maxitrol Ophth Susp] Omeprazole 40 mg PO DAILY PRN 12/28/21 12/28/21 History Psyllium Husk 100% [Metamucil 6 gm PO HS 12/28/21 12/28/21 History Packet] Tiotropium 2.5 Mcg/Puff [Spiriva 1 puff INHALATION RT-HS 12/28/21 12/28/21 History Respimat 2.5 Mcg] carvediloL [Coreg] 3.125 mg PO BID 12/28/21 12/28/21 History levETIRAcetam [Keppra] 750 mg PO BID@0700,1900 12/28/21 12/28/21 History lisinopriL 2.5 mg PO DAILY@1200 12/28/21 12/28/21 History prednisoLONE ACETATE 1% OPHTH 1 drop LEFT EYE QID 12/28/21 12/28/21 History [Pred Forte 1%] Allergies Allergy/AdvReac Type Severity Reaction Status Date / Time allopurinol Allergy Itching Verified 12/28/21 20:23 cephalexin monohydrate Allergy Itching Verified 12/28/21 20:23 [From Keflex] clindamycin Allergy Itching Verified 12/28/21 20:23 NSAIDS (Non-Steroidal AdvReac Unknown STATES NO Verified 12/28/21 20:23 Anti-Inflamma NSAIDS DUE TO GASTRIC BYPASS ciprofloxacin [From Cipro] AdvReac Itching Verified 12/28/21 20:23 doxycycline AdvReac Itching Verified 12/28/21 20:23 Physical Exam Vitals: Vital Signs Pulse Pulse Resp BP BP Pulse Ox 12/29/21 12:00 76 28 H 105/56 12/29/21 07:26 95 12/29/21 07:00 57 L 18 121/57 95 12/28/21 23:59 81 18 119/58 95 12/28/21 21:19 80 12/28/21 21:10 79 12/28/21 20:42 75 18 143/77 94 L 12/28/21 19:36 74 18 149/67 95 12/28/21 17:24 69 18 147/66 97 12/28/21 17:07 82 12/28/21 16:58 80 Intake and Output 12/29/21 12/29/21 12/29/21 06:59 14:59 22:59 Other: Weight 129.274 kg GENERAL DESCRIPTION: An elderly female lying in bed, no distress. No tachypnea or accessory muscle of respiration use. HEENT: Shows Pallor , no scleral icterus. Oral mucous membrane is dry. No pharyngeal erythema or thrush NECK: Trachea central, no thyromegaly. LUNGS: Unlabored breathing. Decreased intensity of breath sounds No wheeze or crackle. HEART: S1, S2, regular rate and rhythm. No loud murmur ABDOMEN: Soft, no tenderness , guarding or rigidity, no organomegaly EXTREMITIES: No edema of feet. SKIN: No rash, no masses palpable. NEUROLOGICAL: The patient is awake, alert, oriented x3, mood and affect normal. Results CBC & Chem 7: 12/29/21 05:31 12/29/21 05:31 Labs: Abnormal Lab Results - Last 24 Hours (Table) 12/28/21 12/28/21 12/28/21 Range/Units 15:44 15:44 15:44 WBC (4.50-10.00) X 10*3/uL RBC (4.10-5.20) X 10*6/uL MCV 101.4 H (80.0-100.0) fL MCHC (32.0-37.0) g/dL RDW (11.5-14.5) % Lymphocytes # 0.8 L (1.0-4.8) k/uL Eosinophils # (0.04-0.35) X 10*3/uL APTT 18.8 L (22.0-30.0) sec Chloride 109 H (98-107) mmol/L Anion Gap (10.00-18.00) mmol/L Glucose 103 H (74-99) mg/dL Total Bilirubin (0.30-1.20) mg/dL Total Protein 6.0 L (6.3-8.2) g/dL Urine Appearance (Clear) Urine Blood (Negative) Urine Nitrite (Negative) Ur Leukocyte Esterase (Negative) Urine WBC (0-5) /hpf Urine Bacteria (None) /hpf Urine Mucus (None) /hpf Coronavirus (PCR) (Not Detectd) 12/28/21 12/28/21 12/29/21 Range/Units 17:22 18:06 05:31 WBC 3.81 L (4.50-10.00) X 10*3/uL RBC 3.82 L (4.10-5.20) X 10*6/uL MCV 100.8 H (80.0-100.0) fL MCHC 31.2 L (32.0-37.0) g/dL RDW 15.2 H (11.5-14.5) % Lymphocytes # 0.56 L (1.0-4.8) k/uL Eosinophils # 0 L (0.04-0.35) X 10*3/uL APTT (22.0-30.0) sec Chloride (98-107) mmol/L Anion Gap (10.00-18.00) mmol/L Glucose (74-99) mg/dL Total Bilirubin (0.30-1.20) mg/dL Total Protein (6.3-8.2) g/dL Urine Appearance Cloudy H (Clear) Urine Blood Small H (Negative) Urine Nitrite Positive H (Negative) Ur Leukocyte Esterase Small H (Negative) Urine WBC 14 H (0-5) /hpf Urine Bacteria Rare H (None) /hpf Urine Mucus Rare H (None) /hpf Coronavirus (PCR) Detected A (Not Detectd) 12/29/21 Range/Units 05:31 WBC (4.50-10.00) X 10*3/uL RBC (4.10-5.20) X 10*6/uL MCV (80.0-100.0) fL MCHC (32.0-37.0) g/dL RDW (11.5-14.5) % Lymphocytes # (1.0-4.8) k/uL Eosinophils # (0.04-0.35) X 10*3/uL APTT (22.0-30.0) sec Chloride (98-107) mmol/L Anion Gap 9.70 L (10.00-18.00) mmol/L Glucose 177 H (74-99) mg/dL Total Bilirubin <0.15 L (0.30-1.20) mg/dL Total Protein 5.8 L (6.3-8.2) g/dL Urine Appearance (Clear) Urine Blood (Negative) Urine Nitrite (Negative) Ur Leukocyte Esterase (Negative) Urine WBC (0-5) /hpf Urine Bacteria (None) /hpf Urine Mucus (None) /hpf Coronavirus (PCR) (Not Detectd) Microbiology - Last 24 Hours (Table) 12/28/21 18:06 Urine Culture - Preliminary Urine,Voided Assessment and Plan (1) COVID-19 Current Visit: Yes Status: Acute Code(s): U07.1 - COVID-19 SNOMED Code(s): 927923533 Plan: 1patient presented hospital with increasing shortness of breath and cough which is likely multifactorial in this patient with likely COPD exacerbation with tracheobronchitis patient did have positive COVID test but not behaving as a COVID-pneumonia patient currently with no fever no hypoxemia or need for supplemental oxygen treatment is mostly supportive. 2we will check inflammatory markers. 3advise Lovenox zinc and ascorbic acid. 4droplet isolation. We will follow on clinical condition and cultures to further adjust medication if needed Thank you for this consultation will follow this patient along with you Time with Patient: Greater than 30
[2021-12-29] MEDS: NEOMYCIN-POLYMYXIN-DEXAMETH (3.5-10,000-0.1) DROPS 5 ML BTL LEFT EYE SCH (23:00)
[2021-12-30] MEDS: HYDROcodone/APAP 10-325MG 1 EACH TAB PO PRN ×4 (01:05→17:22)
[2021-12-30] MEDS: BENZOCAINE/MENTHOL LOZENG 1 EACH LOZENGE MUCOUS MEM PRN ×2 (05:29→15:01)
[2021-12-30] MEDS: LEVOTHYROXINE 75 MCG TAB PO SCH (05:37)
[2021-12-30 07:17] LABS: Glucose,Whole Blood 209 mg/dL (75-99)
[2021-12-30] MEDS: ALBUTEROL HFA INHALER INHALATION SCH ×4 (08:38→21:04)
[2021-12-30] MEDS: TIOTROPIUM 2.5 MCG INHALER INHALATION SCH (08:39)
[2021-12-30 09:38] LABS: ALT 15 U/L (8-44); AST 21 U/L (13-35); African American GFR (CKD) 102.5 (60.0-200.0); Albumin 3.9 g/dL (3.8-4.9); Albumin/Globulin Ratio 1.95 (1.60-3.17); Alkaline Phosphatase 80 U/L (41-126); BUN/Creat Ratio 23.57 Ratio (12.00-20.00); Blood Urea Nitrogen 16.5 mg/dL (9.0-27.0); C Reactive Protein <0.30 mg/dL (0.00-0.80); Calcium 9.5 mg/dL (8.7-10.3); Carbon Dioxide 24.3 mmol/L (20.0-27.5); Chloride 105 mmol/L (96-109); Glucose 218 mg/dL (70-110); Non-African American GFR(CKD) 88.4 (60.0-200.0); Sodium 140 mmol/L (135-145); Total Protein 5.9 g/dL (6.2-8.2)
[2021-12-30] MEDS: FERROUS SULFATE 325 MG TAB PO SCH (09:44)
[2021-12-30] MEDS: INSULIN ASPART (NovoLOG) 100 UNIT/ML VIAL SQ SCH ×4 (09:44→21:00)
[2021-12-30] MEDS: ZINC SULFATE 220 MG CAP PO SCH (09:44)
[2021-12-30] MEDS: carvediloL 3.125 MG TAB PO SCH ×2 (09:44→17:19)
[2021-12-30] MEDS: MULTIVITAMINS, THERA 1 EACH TAB PO SCH (09:44)
[2021-12-30] MEDS: ASPIRIN 81 MG PO SCH (09:44)
[2021-12-30] MEDS: GLIMEPIRIDE 1 MG TAB PO SCH (09:44)
[2021-12-30 09:45] LABS: LDH 279 U/L (120-246)
[2021-12-30] MEDS: ENOXAPARIN 40 MG/0.4 ML SYRINGE SQ SCH (09:45)
[2021-12-30] MEDS: prednisoLONE ACETATE 1% OPHTH DROPS 5 ML BTL LEFT EYE SCH ×4 (09:45→21:01)
[2021-12-30] MEDS: ASCORBIC ACID 500 MG TAB PO SCH (09:45)
[2021-12-30] MEDS: methylPREDNISolone SOD SUCCI 40 MG/ML 1 ML VIAL IV SCH ×2 (10:05→15:01)
[2021-12-30 11:38] LABS: Glucose,Whole Blood 171 mg/dL (75-99)
[2021-12-30 16:50] LABS: Glucose,Whole Blood 156 mg/dL (75-99)
--- NOTE | 2021-12-30 17:59 | HP ---
HISTORY AND PHYSICAL This is a 71-year-old white female short of breath, with cough, congestion, COPD, coronary artery disease, COVID-19 who presented with cough, congestion, shortness of breath, worsening breathing with positive COVID. She had abdominal pain, for which CT scan of her belly is negative, as she has a history of cell lymphoma of the appendix area. She is admitted with Solu-Medrol and COVID treatments with rehydration. Fourteen-point review of systems: cough, congestion, shortness of breath; otherwise negative except for loss of taste and smell. PAST MEDICAL HISTORY: Coronary artery disease, beta cell lymphoma, history of intracranial bleed x2, sleep apnea, osteoarthritis, hypothyroidism. SURGERIES: Appendectomy, bariatric surgery, bowel resection, cholecystectomy, CABG surgery. MEDICINES: See list. PHYSICAL EXAMINATION: VITAL SIGNS: Pulse 60s to 70s, blood pressure 130s to 140s over 50s to 60s, O2 95 to 96. Cardiovascular S1-S2. Lungs with scattered wheeze x4. Hematology negative Homans. Psych fair mood and affect. Integument: Dry skin turgor. Dry mucous membranes. White count is 3.8. ASSESSMENT: 1. COVID-19. 2. COVID pneumonia. Lovenox, zinc, ascorbic acid. Droplet isolation. Some IV steroids. Prognosis guarded. Follow up in next 24 to 48 hours. Please see further orders. MMODL / IJN: [id number] /
[2021-12-30 19:51] LABS: Glucose,Whole Blood 222 mg/dL (75-99)
[2021-12-30] MEDS: ATORVASTATIN 40 MG TAB PO SCH (21:00)
[2021-12-30] MEDS: PSYLLIUM HUSK 100% 6 GM PACKET PO SCH (21:00)
[2021-12-30] MEDS: MONTELUKAST 10 MG TAB PO SCH (21:00)
[2021-12-30] MEDS: NEOMYCIN-POLYMYXIN-DEXAMETH (3.5-10,000-0.1) DROPS 5 ML BTL LEFT EYE SCH (21:01)
[2021-12-31] MEDS: HYDROcodone/APAP 10-325MG 1 EACH TAB PO PRN ×5 (01:03→20:31)
[2021-12-31] MEDS: methylPREDNISolone SOD SUCCI 40 MG/ML 1 ML VIAL IV SCH ×3 (01:04→16:27)
[2021-12-31] MEDS: BENZOCAINE/MENTHOL LOZENG 1 EACH LOZENGE MUCOUS MEM PRN ×3 (01:10→20:31)
[2021-12-31] MEDS: LEVOTHYROXINE 75 MCG TAB PO SCH (05:36)
[2021-12-31 07:10] LABS: Glucose,Whole Blood 191 mg/dL (75-99)
[2021-12-31] MEDS: ALBUTEROL HFA INHALER INHALATION SCH ×4 (08:32→20:09)
[2021-12-31] MEDS: TIOTROPIUM 2.5 MCG INHALER INHALATION SCH (08:32)
[2021-12-31] MEDS: INSULIN ASPART (NovoLOG) 100 UNIT/ML VIAL SQ SCH ×4 (09:56→21:16)
[2021-12-31] MEDS: ZINC SULFATE 220 MG CAP PO SCH (10:10)
[2021-12-31] MEDS: ASPIRIN 81 MG PO SCH (10:11)
[2021-12-31] MEDS: carvediloL 3.125 MG TAB PO SCH (10:12)
[2021-12-31] MEDS: MULTIVITAMINS, THERA 1 EACH TAB PO SCH (10:12)
[2021-12-31] MEDS: ENOXAPARIN 40 MG/0.4 ML SYRINGE SQ SCH (10:12)
[2021-12-31] MEDS: ASCORBIC ACID 500 MG TAB PO SCH (10:12)
[2021-12-31] MEDS: FERROUS SULFATE 325 MG TAB PO SCH (10:12)
[2021-12-31] MEDS: GLIMEPIRIDE 1 MG TAB PO SCH (10:12)
[2021-12-31] MEDS: prednisoLONE ACETATE 1% OPHTH DROPS 5 ML BTL LEFT EYE SCH ×4 (10:14→21:24)
[2021-12-31 10:55] LABS: Glucose,Whole Blood 234 mg/dL (75-99)
[2021-12-31] MEDS: CYANOCOBALAMIN 500 MCG TAB PO SCH (13:11)
[2021-12-31 15:58] LABS: Glucose,Whole Blood 104 mg/dL (75-99)
[2021-12-31] MEDS: carvediloL 6.25 MG TAB PO SCH (16:25)
[2021-12-31] MEDS: PANTOPRAZOLE 40 MG TABLET PO SCH (16:25)
[2021-12-31] MEDS: lisinopriL 10 MG TAB PO SCH (16:25)
[2021-12-31] MEDS: TORSEMIDE 20 MG TAB PO SCH (17:11)
--- NOTE | 2021-12-31 17:35 | PN ---
PROGRESS NOTE This is a 71-year-old white female. Blood pressure is still high, in the 150s to 160s over 70s to 80s. She is getting headaches. Will have to increase her blood pressure medications. She is in with COVID-19 pneumonia in respiratory distress secondary to COVID. She has generalized weakness, fatigue. Sugars are in the mid 100s to 200s. She caught COVID over at [facility]. Lungs show scattered rhonchi and wheeze. She has a congested cough. GI is soft. Her abdominal pain has negative CT scan for any beta cell lymphoma, for which she has a history. She will continue with standard COVID protocol. PT/OT and then maybe go back to [facility], where she lives, when cleared by Dr. Medrano and Pulmonology. She is still saturating well at this time with hypertension accelerated. Will have to increase her blood pressure medications at this point today. Sugars have been stable. She is on Lovenox, zinc, ascorbic acid, steroids. Prognosis guarded. MMODL / IJN: [id number] /
[2021-12-31 19:10] LABS: Glucose,Whole Blood 266 mg/dL (75-99)
[2021-12-31 20:51] LABS: Glucose,Whole Blood 214 mg/dL (75-99)
[2021-12-31] MEDS: PSYLLIUM HUSK 100% 6 GM PACKET PO SCH (21:15)
[2021-12-31] MEDS: MONTELUKAST 10 MG TAB PO SCH (21:16)
[2021-12-31] MEDS: NEOMYCIN-POLYMYXIN-DEXAMETH (3.5-10,000-0.1) DROPS 5 ML BTL LEFT EYE SCH (21:16)
[2021-12-31] MEDS: ATORVASTATIN 40 MG TAB PO SCH (21:16)
[2022-01-01] MEDS: methylPREDNISolone SOD SUCCI 40 MG/ML 1 ML VIAL IV SCH ×3 (00:13→15:23)
[2022-01-01] MEDS: HYDROcodone/APAP 10-325MG 1 EACH TAB PO PRN ×5 (00:13→21:17)
[2022-01-01] MEDS: LEVOTHYROXINE 75 MCG TAB PO SCH (06:23)
[2022-01-01 06:55] LABS: Glucose,Whole Blood 212 mg/dL (75-99)
--- NOTE | 2022-01-01 07:41 | P.PN ---
Subjective Progress Note Date: 12/30/21 Principal diagnosis: covid 19 infection Patient is a 71-year female past medical he significant for COPD coronary disease vaccinated against COVID-19 presented to hospital with increasing shortness of breath cough and wheezing in this patient has been diagnosed with COVID-19 infection patient was not hypoxic chest x-ray was negative. On today's evaluation that is 12/30/2021, the patient denies having any fever or any chills, she is breathing slightly comfortably continue to have a cough with occasional sputum production denies any nausea no vomiting no abdominal pain no diarrhea Objective - Vital Signs Vital signs: Vital Signs Temp 97.7 F 12/30/21 07:55 Pulse 52 L 12/30/21 07:55 Resp 18 12/30/21 07:55 BP 146/62 12/30/21 07:55 Pulse Ox 95 12/30/21 08:39 Intake & Output 12/29/21 12/30/21 12/30/21 18:59 06:59 18:59 Intake Total 1000 Balance 1000 Weight 129.274 kg Intake: Oral 1000 Other: Voiding Method Toilet # Voids 2 1 - Exam GENERAL DESCRIPTION: An elderly female lying in bed in no distress RESPIRATORY SYSTEM: Unlabored breathing , decreased breath sounds at bases HEART: S1 S2 regular rate and rhythm , ABDOMEN: Soft , no tenderness EXTREMITIES: No edema feet - Labs CBC & Chem 7: 12/29/21 05:31 12/30/21 05:21 Labs: Abnormal Lab Results - Last 24 Hours (Table) 12/29/21 12/30/21 12/30/21 Range/Units 21:10 05:21 05:21 D-Dimer 1.44 H (<0.60) mg/L FEU BUN/Creatinine Ratio 23.57 H (12.00-20.00) Ratio Glucose 218 H (70-110) mg/dL POC Glucose (mg/dL) 172 H (75-99) mg/dL Total Bilirubin 0.20 L (0.30-1.20) mg/dL Lactate Dehydrogenase 279 H (120-246) U/L Total Protein 5.9 L (6.2-8.2) g/dL 12/30/21 12/30/21 Range/Units 07:17 11:36 D-Dimer (<0.60) mg/L FEU BUN/Creatinine Ratio (12.00-20.00) Ratio Glucose (70-110) mg/dL POC Glucose (mg/dL) 209 H 171 H (75-99) mg/dL Total Bilirubin (0.30-1.20) mg/dL Lactate Dehydrogenase (120-246) U/L Total Protein (6.2-8.2) g/dL Microbiology - Last 24 Hours (Table) 12/28/21 17:10 Blood Culture - Preliminary Blood No Growth after 24 hours 12/28/21 17:20 Blood Culture - Preliminary Blood No Growth after 24 hours 12/28/21 18:06 Urine Culture - Preliminary Urine,Voided Assessment and Plan (1) COVID-19 Current Visit: Yes Status: Acute Code(s): U07.1 - COVID-19 SNOMED Code(s): 863147899 Plan: 1patient presented hospital with increasing shortness of breath and cough which is likely multifactorial in this patient with likely COPD exacerbation with tracheobronchitis patient did have positive COVID test but not behaving as a COVID-pneumonia patient currently with no fever no hypoxemia or need for supplemental oxygen treatment is mostly supportive. 2patient will continue with Lovenox zinc and ascorbic acid. 3droplet isolation. Time with Patient: Less than 30
--- NOTE | 2022-01-01 07:43 | P.PN ---
Subjective Progress Note Date: 12/31/21 Principal diagnosis: covid 19 infection Patient is a 71-year female past medical he significant for COPD coronary disease vaccinated against COVID-19 presented to hospital with increasing shortness of breath cough and wheezing in this patient has been diagnosed with COVID-19 infection patient was not hypoxic chest x-ray was negative. On today's evaluation that is 12/31/2021, the patient remains to be afebrile, the patient is breathing slightly comfortably on room air, the patient did have a cough with occasional sputum production denies any nausea no vomiting no abdominal pain no diarrhea Objective - Vital Signs Vital signs: Vital Signs Temp 97.5 F L 12/31/21 10:48 Pulse 68 12/31/21 10:48 Resp 20 12/31/21 10:48 BP 170/73 12/31/21 10:48 Pulse Ox 96 12/31/21 10:48 Intake & Output 12/30/21 12/31/21 12/31/21 18:59 06:59 18:59 Intake Total 480 Balance 480 Intake: Oral 480 Other: Voiding Method Toilet Toilet # Voids 3 1 - Exam GENERAL DESCRIPTION: An elderly female lying in bed in no distress RESPIRATORY SYSTEM: Unlabored breathing , decreased breath sounds at bases HEART: S1 S2 regular rate and rhythm , ABDOMEN: Soft , no tenderness EXTREMITIES: No edema feet - Labs CBC & Chem 7: 12/29/21 05:31 12/30/21 05:21 Labs: Abnormal Lab Results - Last 24 Hours (Table) 12/30/21 12/30/21 12/31/21 Range/Units 16:49 19:49 07:08 POC Glucose (mg/dL) 156 H 222 H 191 H (75-99) mg/dL 12/31/21 Range/Units 10:54 POC Glucose (mg/dL) 234 H (75-99) mg/dL Microbiology - Last 24 Hours (Table) 12/28/21 17:20 Blood Culture - Preliminary Blood No Growth after 48 hours 12/28/21 17:10 Blood Culture - Preliminary Blood No Growth after 48 hours 12/28/21 18:06 Urine Culture - Preliminary Urine,Voided Gram Neg Bacilli Assessment and Plan (1) COVID-19 Current Visit: Yes Status: Acute Code(s): U07.1 - COVID-19 SNOMED Code(s): 645907740 Plan: 1patient presented hospital with increasing shortness of breath and cough which is likely multifactorial in this patient with likely COPD exacerbation with tracheobronchitis patient did have positive COVID test but not behaving as a COVID-pneumonia patient currently with no fever no hypoxemia or need for supplemental oxygen treatment is mostly supportive. Patient did have a normal inflammatory markers as well as pro-calcitonin 2patient seemed Show some clinical improvement and will continue with Lovenox zinc and ascorbic acid. 3droplet isolation. Time with Patient: Less than 30
[2022-01-01] MEDS: INSULIN ASPART (NovoLOG) 100 UNIT/ML VIAL SQ SCH ×4 (08:30→21:19)
[2022-01-01] MEDS: ENOXAPARIN 40 MG/0.4 ML SYRINGE SQ SCH (08:31)
[2022-01-01] MEDS: PANTOPRAZOLE 40 MG TABLET PO SCH ×2 (08:31→17:48)
[2022-01-01] MEDS: MULTIVITAMINS, THERA 1 EACH TAB PO SCH (08:31)
[2022-01-01] MEDS: ASCORBIC ACID 500 MG TAB PO SCH (08:31)
[2022-01-01] MEDS: GLIMEPIRIDE 1 MG TAB PO SCH (08:31)
[2022-01-01] MEDS: prednisoLONE ACETATE 1% OPHTH DROPS 5 ML BTL LEFT EYE SCH ×4 (08:31→21:20)
[2022-01-01] MEDS: ASPIRIN 81 MG PO SCH (08:32)
[2022-01-01] MEDS: lisinopriL 10 MG TAB PO SCH (08:32)
[2022-01-01] MEDS: carvediloL 6.25 MG TAB PO SCH ×2 (08:32→17:48)
[2022-01-01] MEDS: FERROUS SULFATE 325 MG TAB PO SCH (08:32)
[2022-01-01] MEDS: TORSEMIDE 20 MG TAB PO SCH (08:32)
[2022-01-01] MEDS: ZINC SULFATE 220 MG CAP PO SCH (08:32)
[2022-01-01] MEDS: ALBUTEROL HFA INHALER INHALATION SCH ×4 (08:39→19:23)
[2022-01-01] MEDS: TIOTROPIUM 2.5 MCG INHALER INHALATION SCH (08:40)
[2022-01-01 11:39] LABS: Glucose,Whole Blood 146 mg/dL (75-99)
[2022-01-01] MEDS: BENZOCAINE/MENTHOL LOZENG 1 EACH LOZENGE MUCOUS MEM PRN (15:26)
[2022-01-01 17:02] LABS: Glucose,Whole Blood 146 mg/dL (75-99)
--- NOTE | 2022-01-01 17:46 | PN ---
PROGRESS NOTE This is a 71-year-old white female with COVID pneumonia, acute hypoxemic respiratory distress, UTI, asthma exacerbation. The patient is improving. She has received a PICC line, as her IV came out today. Sugars are in the 200s. She remains on steroids, COVID antibiotics, etc. Dr. Medrano saw her. She is improving with her respiratory trouble. She will possibly go home tomorrow. She has a hospital bed at home. She has cough, sputum. Abdomen is soft, nontender. Hematology negative Homans. ASSESSMENT: 1. COVID pneumonia. 2. COVID-19 dehydration. 3. Abdominal pain. 4. Dehydration. 5. Metabolic encephalopathy. She continues to show improvement. Possibly send her home tomorrow with outpatient treatment. Please see further orders. MMODL / IJN: [id number] /
[2022-01-01 18:23] LABS: Appearance,Urine Clear (Clear); Bacteria,Urine Moderate /hpf; Bilirubin,Urine Negative (Negative); Blood,Urine Negative (Negative); Color,Urine Light Yellow; Glucose,Urine (UA) Negative (Negative); Hyaline Casts,Urine 8 /lpf (0-2); Ketones,Urine Negative (Negative); Leukocyte Esterase,Urine Small (Negative); Mucus,Urine Rare /hpf; Nitrite,Urine Negative (Negative); Protein,Urine Negative (Negative); RBC,Urine <1 /hpf (0-5); Specific Gravity,Urine 1.013 (1.001-1.035); Squamous Epithelial Cell,Urine 3 /hpf (0-4); Urobilinogen,Urine <2.0 mg/dL (<2.0); WBC,Urine 7 /hpf (0-5)
[2022-01-01 21:08] LABS: Glucose,Whole Blood 222 mg/dL (75-99)
[2022-01-01] MEDS: MONTELUKAST 10 MG TAB PO SCH (21:18)
[2022-01-01] MEDS: ATORVASTATIN 40 MG TAB PO SCH (21:18)
[2022-01-01] MEDS: PSYLLIUM HUSK 100% 6 GM PACKET PO SCH (21:19)
[2022-01-01] MEDS: NEOMYCIN-POLYMYXIN-DEXAMETH (3.5-10,000-0.1) DROPS 5 ML BTL LEFT EYE SCH (21:19)
[2022-01-02] MEDS: methylPREDNISolone SOD SUCCI 40 MG/ML 1 ML VIAL IV SCH ×2 (00:17→09:01)
[2022-01-02] MEDS: HYDROcodone/APAP 10-325MG 1 EACH TAB PO PRN ×3 (01:40→12:23)
[2022-01-02] MEDS: LEVOTHYROXINE 75 MCG TAB PO SCH (05:45)
[2022-01-02 07:05] LABS: Glucose,Whole Blood 205 mg/dL (75-99)
[2022-01-02] MEDS: ALBUTEROL HFA INHALER INHALATION SCH ×3 (07:14→15:26)
[2022-01-02] MEDS: TIOTROPIUM 2.5 MCG INHALER INHALATION SCH (07:14)
[2022-01-02] MEDS: TORSEMIDE 20 MG TAB PO SCH (07:21)
[2022-01-02] MEDS: GLIMEPIRIDE 1 MG TAB PO SCH (07:21)
[2022-01-02] MEDS: ASCORBIC ACID 500 MG TAB PO SCH (07:21)
[2022-01-02] MEDS: ASPIRIN 81 MG PO SCH (07:21)
[2022-01-02] MEDS: PANTOPRAZOLE 40 MG TABLET PO SCH (07:21)
[2022-01-02] MEDS: MULTIVITAMINS, THERA 1 EACH TAB PO SCH (07:21)
[2022-01-02] MEDS: ZINC SULFATE 220 MG CAP PO SCH (07:21)
[2022-01-02] MEDS: lisinopriL 10 MG TAB PO SCH (07:22)
[2022-01-02] MEDS: FERROUS SULFATE 325 MG TAB PO SCH (07:22)
[2022-01-02] MEDS: prednisoLONE ACETATE 1% OPHTH DROPS 5 ML BTL LEFT EYE SCH ×2 (07:22→12:20)
[2022-01-02] MEDS: INSULIN ASPART (NovoLOG) 100 UNIT/ML VIAL SQ SCH ×2 (07:22→12:20)
[2022-01-02] MEDS: ENOXAPARIN 40 MG/0.4 ML SYRINGE SQ SCH (07:22)
[2022-01-02] MEDS: carvediloL 6.25 MG TAB PO SCH (07:22)
[2022-01-02] MEDS: BENZOCAINE/MENTHOL LOZENG 1 EACH LOZENGE MUCOUS MEM PRN (09:04)
[2022-01-02 11:34] VITALS: TEMP 98
[2022-01-02 11:49] LABS: Glucose,Whole Blood 171 mg/dL (75-99)
[2022-01-02] MEDS: CYANOCOBALAMIN 500 MCG TAB PO SCH (12:20)
[2022-01-02 13:26] VITALS: BMI 50.5
[2022-01-02 15:12] VITALS: BP 122/66; PULSE 74; RESP 18
--- NOTE | 2022-01-02 15:31 | P.PN ---
Subjective Progress Note Date: 01/01/22 Principal diagnosis: covid 19 infection Patient is a 71-year female past medical he significant for COPD coronary disease vaccinated against COVID-19 presented to hospital with increasing shortness of breath cough and wheezing in this patient has been diagnosed with COVID-19 infection patient was not hypoxic chest x-ray was negative. On today's evaluation that is 01/01/2022, the patient is afebrile, the patient is breathing comfortably on room air, the patient did have a cough with occasional sputum production, the patient denies any nausea no vomiting no abdominal pain no diarrhea Objective - Vital Signs Vital signs: Vital Signs Temp 98.0 F 01/01/22 14:00 Pulse 52 L 01/01/22 14:00 Resp 16 01/01/22 08:20 BP 106/68 01/01/22 14:00 Pulse Ox 95 01/01/22 14:00 Intake & Output 12/31/21 01/01/22 01/01/22 18:59 06:59 18:59 Intake Total 1080 Balance 1080 Intake: Oral 1080 Other: Voiding Method Toilet Toilet Toilet # Voids 2 - Exam GENERAL DESCRIPTION: An elderly female lying in bed in no distress RESPIRATORY SYSTEM: Unlabored breathing , decreased breath sounds at bases HEART: S1 S2 regular rate and rhythm , ABDOMEN: Soft , no tenderness EXTREMITIES: No edema feet - Labs CBC & Chem 7: 12/29/21 05:31 12/30/21 05:21 Labs: Abnormal Lab Results - Last 24 Hours (Table) 12/31/21 12/31/21 12/31/21 Range/Units 15:55 19:09 20:49 POC Glucose (mg/dL) 104 H 266 H 214 H (75-99) mg/dL 01/01/22 01/01/22 Range/Units 06:51 11:37 POC Glucose (mg/dL) 212 H 146 H (75-99) mg/dL Microbiology - Last 24 Hours (Table) 12/28/21 17:10 Blood Culture - Preliminary Blood No Growth after 72 hours 12/28/21 17:20 Blood Culture - Preliminary Blood No Growth after 72 hours 12/28/21 18:06 Urine Culture - Final Urine,Voided Escherichia coli Escherichia coli#2 Assessment and Plan (1) COVID-19 Current Visit: Yes Status: Acute Code(s): U07.1 - COVID-19 SNOMED Code(s): 522158706 Plan: 1patient presented hospital with increasing shortness of breath and cough which is likely multifactorial in this patient with likely COPD exacerbation with tracheobronchitis patient did have positive COVID test but not behaving as a COVID-pneumonia patient currently with no fever no hypoxemia or need for supplemental oxygen treatment is mostly supportive. Patient did have a normal inflammatory markers as well as pro-calcitonin 2patient has shown clinical improvement and will continue with current supportive treatment of Lovenox zinc and ascorbic acid. 3droplet isolation. Time with Patient: Less than 30
--- NOTE | 2022-01-02 15:32 | P.PN ---
Subjective Progress Note Date: 01/02/22 Principal diagnosis: covid 19 infection Patient is a 71-year female past medical he significant for COPD coronary disease vaccinated against COVID-19 presented to hospital with increasing shortness of breath cough and wheezing in this patient has been diagnosed with COVID-19 infection patient was not hypoxic chest x-ray was negative. On today's evaluation that is 01/02/2022, the patient remains to be afebrile, the patient is breathing comfortably on room air, the patient denies any chest pain and cough is decreased intensity, the patient denies any nausea no vomiting no abdominal pain no diarrhea, no urinary symptoms Objective - Vital Signs Vital signs: Vital Signs Temp 98 F 01/02/22 10:22 Pulse 46 L 01/02/22 10:22 Resp 17 01/02/22 10:22 BP 109/64 01/02/22 10:22 Pulse Ox 95 01/02/22 10:22 Intake & Output 01/01/22 01/02/22 01/02/22 18:59 06:59 18:59 Other: Voiding Method Toilet Toilet # Voids 4 2 - Exam GENERAL DESCRIPTION: An elderly female lying in bed in no distress RESPIRATORY SYSTEM: Unlabored breathing , decreased breath sounds at bases HEART: S1 S2 regular rate and rhythm , ABDOMEN: Soft , no tenderness EXTREMITIES: No edema feet - Labs CBC & Chem 7: 12/29/21 05:31 12/30/21 05:21 Labs: Abnormal Lab Results - Last 24 Hours (Table) 01/01/22 01/01/22 01/01/22 Range/Units 17:00 18:05 21:06 POC Glucose (mg/dL) 146 H 222 H (75-99) mg/dL Ur Leukocyte Esterase Small H (Negative) Urine WBC 7 H (0-5) /hpf Urine Bacteria Moderate H (None) /hpf Hyaline Casts 8 H (0-2) /lpf Urine Mucus Rare H (None) /hpf 01/02/22 01/02/22 Range/Units 07:01 11:46 POC Glucose (mg/dL) 205 H 171 H (75-99) mg/dL Ur Leukocyte Esterase (Negative) Urine WBC (0-5) /hpf Urine Bacteria (None) /hpf Hyaline Casts (0-2) /lpf Urine Mucus (None) /hpf Microbiology - Last 24 Hours (Table) 12/28/21 17:10 Blood Culture - Preliminary Blood No Growth after 96 hours 12/28/21 17:20 Blood Culture - Preliminary Blood No Growth after 96 hours Assessment and Plan (1) COVID-19 Current Visit: Yes Status: Acute Code(s): U07.1 - COVID-19 SNOMED Code(s): 794581060 Plan: 1patient presented hospital with increasing shortness of breath and cough which is likely multifactorial in this patient with likely COPD exacerbation with tracheobronchitis patient did have positive COVID test but not behaving as a COVID-pneumonia patient currently with no fever no hypoxemia or need for supplemental oxygen treatment is mostly supportive. Patient did have a normal i nflammatory markers as well as pro-calcitonin 2patient has shown clinical improvement and will continue with current supportive treatment of Lovenox zinc and ascorbic acid. 3patient with a positive UA and urine culture more likely asymptomatic bacteriuria as the patient did not have any symptom hence no need for antibiotics on discharge Time with Patient: Less than 30
== END 2022-01-02 16:55 | disposition home or self-care (01) | DRG 177 ==
LOC: EC 14:55 → 4SSUR 20:11
PROVIDERS: ADMIT Family Medicine; ATTEND Family Medicine
PROC: 05HD33Z Insertion of Infusion Device into Right Cephalic Vein, Percutaneous Approach (ICD-10-PCS; principal; 2022-01-01 18:05)
DX: U07.1 COVID-19 (principal); G93.41 Metabolic encephalopathy; J44.0 Chronic obstructive pulmonary disease with (acute) lower respiratory infection; J45.901 Unspecified asthma with (acute) exacerbation; N39.0 Urinary tract infection, site not specified; E03.9 Hypothyroidism, unspecified; E11.9 Type 2 diabetes mellitus without complications; E78.5 Hyperlipidemia, unspecified; E86.0 Dehydration; G25.81 Restless legs syndrome; H91.93 Unspecified hearing loss, bilateral; I10 Essential (primary) hypertension; I25.10 Atherosclerotic heart disease of native coronary artery without angina pectoris; R09.02 Hypoxemia; G47.30 Sleep apnea, unspecified; Z79.82 Long term (current) use of aspirin; Z79.84 Long term (current) use of oral hypoglycemic drugs; Z79.890 Hormone replacement therapy; E11.40 Type 2 diabetes mellitus with diabetic neuropathy, unspecified; Z79.899 Other long term (current) drug therapy; Z80.1 Family history of malignant neoplasm of trachea, bronchus and lung; Z85.72 Personal history of non-Hodgkin lymphomas; Z86.73 Personal history of transient ischemic attack (TIA), and cerebral infarction without residual deficits; Z87.19 Personal history of other diseases of the digestive system; G89.29 Other chronic pain; M54.50 Low back pain, unspecified; M54.2 Cervicalgia; Z86.010 Personal history of colon polyps; Z98.890 Other specified postprocedural states; Z87.81 Personal history of (healed) traumatic fracture; Z87.440 Personal history of urinary (tract) infections; D50.9 Iron deficiency anemia, unspecified; Z98.84 Bariatric surgery status; Z95.1 Presence of aortocoronary bypass graft; Z87.891 Personal history of nicotine dependence; Z96.641 Presence of right artificial hip joint; Z96.651 Presence of right artificial knee joint; Z90.49 Acquired absence of other specified parts of digestive tract; Z88.6 Allergy status to analgesic agent; Z88.1 Allergy status to other antibiotic agents
CPT/HCPCS: 36410; 36415; 71046; 74177; 76937; 80053; 81001; 83605; 83615; 83690; 83735; 83880; 84145; 84484; 85025; 85379; 85610; 85730; 86140; 87040; 87077; 87086; 87186; 87502; 87635; 93005; 94640; 94760; 96365; 96375; 96376; 99285

== ENCOUNTER → 2022-06-03 | Outpatient (CLI) | payer MEDICARE, OTHER ==
--- NOTE | 2022-06-03 19:22 | CT ---
EXAMINATION TYPE: CT brain wo con CT DLP: 1127.7 mGycm, Automated exposure control for dose reduction was used. DATE OF EXAM: 06/03/2022 7:04 PM COMPARISON: CT head 09/23/2021. 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 Contrast used: None. Oral contrast used: None. FINDINGS: Brain: Extra-axial spaces: No abnormal extra-axial fluid collections. There is been resolution of prior extr a-axial fluid collection seen over the convexity of the right cerebrum on prior. Ventricular system: The lateral ventricles appear similarly dilated. No obvious Cerebral parenchyma: White matter changes in the right frontal lobe are present. No acute intraparenc hymal hemorrhage or mass effect. The rai-white junction is well differentiated. Cerebellum: Unremarkable. Mass effect: No evidence of midline shift. Intracranial vasculature: Atherosclerotic calcifications of the intracranial vessels. Soft tissues: Normal. Calvarium/osseous structures: No depressed skull fracture. Interventional changes to the calvarium on the right. Paranasal sinuses and mastoid air cells: Mild scattered paranasal sinus disease. Visualized orbits: Orbital contents are intact. IMPRESSION: 1. No acute intracranial process. 2. Resolution of prior subdural fluid collection seen on 09/23/2021. No definitive evidence for hydroc ephalus. 3. Right frontal lobe nonspecific white matter changes.
== END | disposition home or self-care (01) ==
LOC: RADCTMAIN 18:43
PROVIDERS: ATTEND Neurological Surgery
DX: G93.89 Other specified disorders of brain (principal)
CPT/HCPCS: 70450

== ENCOUNTER → 2022-11-30 | Outpatient (CLI) | payer MEDICARE, OTHER ==
[2022-11-30 16:21] LABS: HCT 40.3 % (37.2-46.3); HGB 12.7 g/dL (12.0-15.0); MCH 32.8 pg (27.0-32.0); MCHC 31.5 g/dL (32.0-37.0); MCV 104.1 fL (80.0-97.0); Mean Platelet Volume 11.1 fL (9.5-12.2); NRBC Per 100 WBC 0 /100 WBCS (0.0-0.0); Platelet Count 203 X 10*3/uL (140-440); RBC 3.87 X 10*6/uL (4.10-5.20); RDW 13.7 % (11.5-14.5)
[2022-11-30 16:54] LABS: African American GFR (CKD) 78.9 (60.0-200.0); Blood Urea Nitrogen 11.2 mg/dL (9.0-27.0); Non-African American GFR(CKD) 68.1 (60.0-200.0)
[2022-11-30 16:55] LABS: Anion Gap 8.2 mmol/L (10.00-18.00); Potassium 4.9 mmol/L (3.5-5.5)
== END | disposition home or self-care (01) ==
LOC: LABPAT 09:02
PROVIDERS: ATTEND Internal Medicine
DX: Z01.812 Encounter for preprocedural laboratory examination (principal); I25.10 Atherosclerotic heart disease of native coronary artery without angina pectoris
CPT/HCPCS: 80051; 82565; 84520; 85027

== ENCOUNTER 2022-12-08 07:43 | Day surgery (SDC) | payer MEDICARE, OTHER ==
[~2022-12-08 07:43] MED LIST changes: +ALPRAZolam 0.25 MG TAB PO PRN; +ALPRAZolam 0.5 MG TAB PO PRN; -IV FLUID CONTINUATION 1,000 ML IV ONE; -LACTATED RINGERS 1,000 ML IV SCH; -LIDOCAINE 1% INJ 10MG/ML (20 ML MDV) ONE; -LIDOCAINE 4% (PF) 5 ML AMP ONE; -MIDAZOLAM 2 MG/2 ML VIAL ONE; +NITROGLYCERIN SL TABS 0.4 MG TAB SUBLINGUAL PRN; +SODIUM CHLORIDE 0.9% 1,000 ML in EMPTY BAG 1 BAG IV SCH; -fentaNYL (PF) 50 MCG/ML 2 ML AMP ONE
[2022-12-08] MEDS ORDERED: SODIUM CHLORIDE 0.9% 1,000 ML IV ONE (07:56)
[2022-12-08 08:03] VITALS: TEMP 97.6
[2022-12-08 08:04] LABS: Glucose,Whole Blood 115 mg/dL (70-110)
[2022-12-08] MEDS ORDERED: fentaNYL (PF) 50 MCG/ML 2 ML AMP ONE (09:49)
[2022-12-08] MEDS ORDERED: HEPARIN SODIUM 1,000 UN/ML (10ML VL) ONE (09:49)
[2022-12-08] MEDS ORDERED: fentaNYL (PF) 50 MCG/ML 2 ML AMP IV ONE (10:12)
[2022-12-08] MEDS ORDERED: MIDAZOLAM 2 MG/2 ML VIAL IV ONE (10:12)
[2022-12-08] MEDS ORDERED: LIDOCAINE 1% INJ 10MG/ML (5 ML VIAL-PF) SQ ONE (10:19)
[2022-12-08] MEDS ORDERED: LIDOCAINE 1% INJ 10MG/ML (20 ML MDV) ONE (10:24)
[2022-12-08] MEDS ORDERED: LIDOCAINE 1% INJ 10MG/ML (20 ML MDV) SQ ONE (10:25)
[2022-12-08] MEDS ORDERED: IOPAMIDOL-370 125ML BTL INJ ONE (10:40)
[2022-12-08] MEDS ORDERED: HYDROcodone/APAP 10-325MG 1 EACH TAB PO PRN (11:02)
--- NOTE | 2022-12-08 11:02 | P.CARDCATH ---
Description of Procedure: PROCEDURES PERFORMED: Left heart catheterization, bilateral coronary angiography, BALDWIN to LAD angiography INDICATION: Abnormal stress test, cardiomyopathy CONSENT:I have discussed the risks, benefits and alternative therapies for the above-mentioned procedure and for both sedation/analgesia as well as necessary blood product administration, if indicated, as they pertain to this patient. The patient has indicated understanding and acceptance of the risks and procedures discussed. PROCEDURE: After the risks, benefits and alternatives of the above mentioned procedure explained in detail with the patient, informed consent was obtained. Patient was taken to the catheterization lab and prepped and draped in usual fashion. Initially attempted left radial approach however on ultrasound left radial artery is small and not easily cannulated and therefore femoral approach was recommended. 1% lidocaine was used to anesthetize the right femoral artery. A 6-St Helenian sheath was placed in the right neural artery using modified Seldinger technique. Left coronary angiography was performed with a 6-St Helenian JL 4.0 catheter and right coronary angiography was performed with a 6-St Helenian JR4 catheter in various views. BALDWIN to LAD angiography was performed with a 6- [place] Helenian FR4 catheter. A 6-St Helenian FR4 catheter was inserted into the left ventricle and pressure measurements were obtained. A right femoral angiogram showed adequate anatomy for closure and a 6-St Helenian Angio-Seal was placed with hemostasis achieved. The patient tolerated the procedure well. Patient was transported back to the post catheterization holding area in stable condition. Conscious Sedation: Patient was monitored under the direct supervision of myself for conscious sedation using Versed and fentanyl for a total duration of 24 minutes HEMODYNAMICS: Ao: 146/56 LV: 142/5, LVEDP 14 SELECTIVE CORONARY ARTERIOGRAPHY: LEFT MAIN: The left main is a large caliber vessel which bifurcates into the LAD and circumflex. There is no significant stenosis. LEFT ANTERIOR DESCENDING CORONARY ARTERY: LAD is a large caliber vessel which wraps around to the apex. The majority of the LAD appears normal however at the mid LAD there is competitive flow just past the diagonal branch and LAD takes an acute turn appears related to insertion of the BALDWIN to LAD. There appears to be 50% stenosis at this level LEFT CIRCUMFLEX CORONARY ARTERY: Left circumflex is a moderate caliber vessel has mild luminal irregularities RIGHT CORONARY ARTERY: The right coronary artery is a large caliber vessel which gives off a PDA and PLV branch and is the dominant vessel. There are mild luminal irregularities BALDWIN to LAD: patent FINAL IMPRESSION: 1. Relatively normal coronary arteries other than mid LAD 50% stenosis 2. Patent BALDWIN to LAD 3. Normal left sided filling pressures PLAN: 1. Aggressive risk factor modification per most recent ACC/AHA guidelines. 2. Follow-up in the office in 1-2 weeks.
[2022-12-08 19:59] VITALS: RESP 16
[2022-12-08 20:01] VITALS: PULSE 62
[2022-12-08 20:04] VITALS: BP 139/61
== END 2022-12-08 14:39 | disposition home or self-care (01) ==
LOC: CATHCVL 07:43
PROVIDERS: ATTEND Internal Medicine
DX: I25.10 Atherosclerotic heart disease of native coronary artery without angina pectoris (principal); Z95.1 Presence of aortocoronary bypass graft; I42.9 Cardiomyopathy, unspecified; I10 Essential (primary) hypertension; E78.5 Hyperlipidemia, unspecified; E11.9 Type 2 diabetes mellitus without complications; E03.9 Hypothyroidism, unspecified; E66.01 Morbid (severe) obesity due to excess calories; Z68.43 Body mass index [BMI] 50.0-59.9, adult; F17.210 Nicotine dependence, cigarettes, uncomplicated; Z79.82 Long term (current) use of aspirin; Z79.84 Long term (current) use of oral hypoglycemic drugs; Z79.899 Other long term (current) drug therapy; Z79.890 Hormone replacement therapy; Z85.72 Personal history of non-Hodgkin lymphomas; Z88.1 Allergy status to other antibiotic agents; Z88.8 Allergy status to other drugs, medicaments and biological substances
CPT/HCPCS: 93458; 93459

== ENCOUNTER 2022-12-15 18:46 | Emergency (ER) | payer MEDICARE, OTHER ==
--- NOTE | 2022-12-15 21:12 | CT ---
EXAMINATION TYPE: CT brain wo con DATE OF EXAM: 12/15/2022 HISTORY: pt fell and hit head. hx of brain sx CT DLP: 1123.4 mGycm. Automated Exposure Control for Dose Reduction was Utilized. TECHNIQUE: CT scan of the head is performed without contrast. COMPARISON: Prior CT brain June 03, 2022 FINDINGS: Superior right frontoparietal craniotomy change is redemonstrated. There is no acute intrac ranial hemorrhage or midline shift identified. Mild to moderate ventricular and sulcal prominence is again seen. Mild to moderate low-attenuation in the deep and periventricular white matter redemonstra rubi. Focal encephalomalacia anterior right frontal lobe superiorly redemonstrated. Bilateral aphakia again seen. Visualized sinuses are grossly clear. Right mastoid surgical change redemonstrated. IMPRESSION: No acute intracranial hemorrhage or midline shift. There is mild to moderate diffuse ce rebral atrophy and chronic small vessel ischemic change along with right sided frontal encephalomalac ia and right-sided surgical change are all redemonstrated. No significant change from most recent saul or CT.
--- NOTE | 2022-12-15 21:18 | ED ---
Head Injury HPI - General Chief complaint: Head Injury Stated complaint: hit head Time Seen by Provider: 12/15/22 20:18 Source: patient Mode of arrival: ambulatory Limitations: no limitations - History of Present Illness Initial comments: Patient is a 72-year-old female presenting with chief complaint of head injury. She states that about 4 hours prior to arrival she hit her head on the visor of her car. She was advised by her PCP Dr. Santiago to report to the ER for CT as she has history of recent brain surgery. No loss of consciousness and no blood thinners. No neck pain, nausea, vomiting, dizziness, headache, vision or hearing changes, numbness, tingling, weakness. Patient had a small bump at the top of her head which has improved after applying ice. - Related Data Home Medications Medication Instructions Recorded Confirmed Simvastatin [Zocor] 80 mg PO HS 03/21/14 12/02/22 Ergocalciferol [Vitamin D2 50,000 unit PO MO 10/09/14 12/02/22 (DRISDOL)] Levothyroxine Sodium [Synthroid] 150 mcg PO DAILY 10/09/14 12/08/22 Glimepiride [Amaryl] 1 mg PO DAILY 10/08/15 12/02/22 HYDROcodone/APAP 10-325MG [[place] 1 tab PO Q4-6H PRN 08/22/18 12/08/22 10-325] Multivitamins, Thera [Multivitamin 1 tab PO DAILY 07/04/21 12/02/22 (formulary)] Ferrous Sulfate [Iron (65 MG 325 mg PO DAILY 12/28/21 12/02/22 Elemental)] Meclizine HCl 25 mg PO DAILY PRN 12/28/21 12/02/22 carvediloL [Coreg] 3.125 mg PO BID 12/28/21 12/02/22 levETIRAcetam [Keppra] 750 mg PO BID@0700,1900 12/28/21 12/02/22 Fluticasone Propion/Salmeterol 1 inhalation PO DAILY 12/02/22 12/02/22 [Advair 250-50 Diskus] Omeprazole [PriLOSEC] 40 mg PO DAILY 12/02/22 12/02/22 Zafirlukast [Accolate] 20 mg PO BID 12/02/22 12/08/22 lisinopriL [Zestril] 2.5 mg PO DAILY 12/02/22 12/02/22 rOPINIRole HCL [Requip XL] 2 mg PO HS 12/02/22 12/02/22 Previous Rx's Medication Instructions Recorded Aspirin EC [Ecotrin Low Dose] 81 mg PO DAILY #0 09/13/19 Tiotropium 2.5 Mcg/Puff [Spiriva 2 puff INHALATION RT-DAILY each 01/02/22 Respimat 2.5 Mcg] Allergies/Adverse reactions: Allergies Allergy/AdvReac Type Severity Reaction Status Date / Time allopurinol Allergy Itching Verified 12/15/22 19:06 cephalexin monohydrate Allergy Itching Verified 12/15/22 19:06 [From Keflex] clindamycin Allergy Itching Verified 12/15/22 19:06 NSAIDS (Non-Steroidal AdvReac Unknown STATES NO Verified 12/15/22 19:06 Anti-Inflamma NSAIDS DUE TO GASTRIC BYPASS ciprofloxacin [From Cipro] AdvReac Itching Verified 12/15/22 19:06 doxycycline AdvReac Itching Verified 12/15/22 19:06 Review of Systems ROS Statement: Those systems with pertinent positive or pertinent negative responses have been documented in the HPI. ROS Other: All systems not noted in ROS Statement are negative. 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 deaf/chronic otitis media L ear, SHISHMAREF IRA R ear, chronic low back/neck pain, vertigo, L hand NT R/T hx L wrist fx, RLS, varicosities, possible IBS/colitis/crohn's per pt in the past, uses C-PAP, hypothyroid, sinus allergies, eczema, iron def. anemia with iron infusion, past UTI with sepsis, recent stress test, "slow heart rate" History of Any Multi-Drug Resistant Organisms: None Reported Past Surgical History: Appendectomy, Bariatric Surgery, Bowel Resection, Cholecystectomy, Coronary Bypass/CABG, Heart Catheterization, Hernia Repair, Joint Replacement, Orthopedic Surgery, Tubal Ligation Additional Past Surgical History / Comment(s): Brain surgery at [facility] for hydrocephalus then d/t blood at surgical site/drain placed per patient, 09/29/18 removal R ear ventilation tube, R tympanomastoidectomy, CABG x1 vessel (1992), bilateral shoulder surgery/ rt shoulder rotator cuff, bilateral carpal tunnel releases, L wrist surgery d/t injury, total L knee, total R hip, lap banding, gastric bypass w/ lap band removal 2013, colonoscopy, R colectomy d/t mass, EGD, umbilical hernia repair, pain clinic procedures Past Anesthesia/Blood Transfusion Reactions: Motion Sickness Additional Past Anesthesia/Blood Transfusion Reaction / Comment(s): VERTIGO Past Psychological History: No Psychological Hx Reported Smoking Status: Former smoker Past Alcohol Use History: None Reported Past Drug Use History: None Reported - Past Family History Mother Additional Family Medical History / Comment(s): Pt states her mother never went to the doctor so she does not know of any medical problems. Mother lived to be 87yrs old. Father Additional Family Medical History / Comment(s): Father at the age of 67yrs, pt does not know cause of . Sister(s) Family Medical History: Cancer Additional Family Medical History / Comment(s): LUNG CA General Exam Limitations: no limitations General appearance: alert, in no apparent distress Head exam: Present: atraumatic, normocephalic, normal inspection Eye exam: Present: normal appearance, PERRL, EOMI. Absent: scleral icterus, conjunctival injection, periorbital swelling Pupils: Present: normal accommodation Neck exam: Present: normal inspection, full ROM. Absent: tenderness Neurological exam: Present: alert, oriented X3, CN II-XII intact Expanded Patient oriented to: Present: person, place, time Speech: Present: fluid speech Cranial nerves: EOM's Intact: Normal Motor strength exam: RUE: 5, LUE: 5, RLE: 5, LLE: 5 Eye Response: (4) open spontaneously Motor Response: (6) obeys commands Verbal Response: (5) oriented [place] Total: 15 Psychiatric exam: Present: normal affect, normal mood Skin exam: Present: warm, dry, intact, normal color. Absent: rash Course Vital Signs 12/15/22 12/15/22 12/15/22 19:03 20:06 21:26 Temperature 97.0 F L 96.1 F L 97.2 F L Pulse Rate 67 62 63 Respiratory 20 18 20 Rate Blood Pressure 140/79 122/77 129/76 O2 Sat by Pulse 96 96 95 Oximetry 12/15/22 21:27 Temperature 97.2 F L Pulse Rate 63 Respiratory 20 Rate Blood Pressure 129/76 O2 Sat by Pulse 95 Oximetry Medical Decision Making - Medical Decision Making Was pt. sent in by a medical professional or institution (, PA, COMPUTER PROGRAMMER CHIEF, urgent care, hospital, or retirement...) When possible be specific @ -No Did you speak to anyone other than the patient for history (EMS, parent, family, police, friend...)? What history was obtained from this source @ -No Did you review nursing and triage notes (agree or disagree)? Why? @ -I reviewed and agree with nursing and triage notes Were old charts reviewed (outside hosp., previous admission, EMS record, old EKG, old radiological studies, urgent care reports/EKG's, retirement records)? Report findings @ -No old charts were reviewed Differential Diagnosis (chest pain, altered mental status, abdominal pain women, abdominal pain men, vaginal bleeding, weakness, fever, dyspnea, syncope, headache, dizziness, GI bleed, back pain, seizure, CVA, palpatations, mental health, musculoskeletal)? @ -Differential includes hematoma, intracranial bleed, skull fracture, this is not an all inclusive list EKG interpreted by me (3pts min.). @ -As above X-rays interpreted by me (1pt min.). @ -None done CT interpreted by me (1pt min.). @ -CT shows no acute intracranial process U/S interpreted by me (1pt. min.). @ -None done What testing was considered but not performed or refused? (CT, X-rays, U/S, labs)? Why? @ -None What meds were considered but not given or refused? Why? @ -None Did you discuss the management of the patient with other professionals (professionals i.e. , PA, COMPUTER PROGRAMMER CHIEF, lab, RT, psych nurse, social welfare research worker, canopy inspector, teacher, hydrographical technical officer, telephonic case manager)? Give summary @ -No Was smoking cessation discussed for >3mins.? @ -No Was critical care preformed (if so, how long)? @ -No Were there social determinants of health that impacted care today? How? (Homelessness, low income, unemployed, alcoholism, drug addiction, transportation, low edu. Level, literacy, decrease access to med. care, assisted, rehab)? @ -No Was there de-escalation of care discussed even if they declined (Discuss DNR or withdrawal of care, Hospice)? DNR status @ -No What co-morbidities impacted this encounter? (DM, HTN, Smoking, COPD, CAD, Cancer, CVA, ARF, Chemo, Hep., AIDS, mental health diagnosis, sleep apnea, morbid obesity)? @ -None Was patient admitted / discharged? Hospital course, mention meds given and route, prescriptions, significant lab abnormalities, going to OR and other pertinent info. @ -Patient is a 72-year-old female who was sent in by her PCP Dr. Santiago for head CT after hitting her head on her course of visor about 4 hours prior to arrival. She has history of recent brain surgery in 2021. No loss of consciousness or blood thinners Patient feels well at this time. She is asymptomatic. No focal neurological deficits. CT shows no acute intracranial process. Patient is educated on these findings. Follow-up with PCP. Report back to ER with any new or worsening symptoms. Discussed return parameters and answered all questions. Patient conveyed verbal understanding and agreed to the plan. I discussed this case in detail with my attending Dr. Key Undiagnosed new problem with uncertain prognosis? @ -No Drug Therapy requiring intensive monitoring for toxicity (Heparin, Nitro, Insulin, Cardizem)? @ -No Were any procedures done? @ -No Diagnosis/symptom? @ -Scalp hematoma Acute, or Chronic, or Acute on Chronic? @ -Acute Uncomplicated (without systemic symptoms) or Complicated (systemic symptoms)? @ -Uncomplicated Side effects of treatment? @ -No Exacerbation, Progression, or Severe Exacerbation? @ -No Poses a threat to life or bodily function? How? (Chest pain, [place], [place], pneumonia, PE, COPD, DKA, ARF, appy, cholecystitis, CVA, Diverticulitis, Homicidal, Suicidal, threat to staff... and all critical care pts) @ -No Disposition Clinical Impression: Scalp hematoma Disposition: HOME SELF-CARE Condition: Good Instructions (If sedation given, give patient instructions): Head Injury (ED) Additional Instructions: Follow-up with PCP. Report back to ER with any new or worsening symptoms. Take Tylenol as needed for pain control. Use ice as needed for hematoma. Is patient prescribed a controlled substance at d/c from ED?: No Referrals: Padilla Santiago MD [Primary Care Provider] - 1-2 days Time of Disposition: 21:18
[2022-12-15 21:27] VITALS: BP 129/76; PULSE 63; RESP 20; TEMP 97.2
== END 2022-12-15 21:29 | disposition home or self-care (01) ==
LOC: EC 18:46
DX: S00.03XA Contusion of scalp, initial encounter (principal); E11.9 Type 2 diabetes mellitus without complications; I10 Essential (primary) hypertension; I25.10 Atherosclerotic heart disease of native coronary artery without angina pectoris; J44.9 Chronic obstructive pulmonary disease, unspecified; E78.5 Hyperlipidemia, unspecified; K21.9 Gastro-esophageal reflux disease without esophagitis; E03.9 Hypothyroidism, unspecified; Z79.51 Long term (current) use of inhaled steroids; Z79.84 Long term (current) use of oral hypoglycemic drugs; Z79.899 Other long term (current) drug therapy; Z79.890 Hormone replacement therapy; Z87.891 Personal history of nicotine dependence; Z88.1 Allergy status to other antibiotic agents; Z88.6 Allergy status to analgesic agent; Z88.8 Allergy status to other drugs, medicaments and biological substances; Z95.1 Presence of aortocoronary bypass graft; Z98.84 Bariatric surgery status; W22.8XXA Striking against or struck by other objects, initial encounter
CPT/HCPCS: 70450; 99284

== ENCOUNTER 2022-12-21 12:50 | Inpatient (IN) | payer MEDICARE, OTHER ==
[2022-12-21 14:36] LABS: Basophils % (A) 0 %; Eosinophils # (A) 0.1 k/uL (0-0.7); Eosinophils % (A) 2 %; HCT 40.6 % (34.0-46.0); HGB 12.6 gm/dL (11.4-16.0); Hypochromasia Slight; Lymphocytes # (A) 1.3 k/uL (1.0-4.8); Lymphocytes % (A) 16 %; MCH 32.4 pg (25.0-35.0); MCV 104.7 fL (80.0-100.0); Macrocytosis Slight; Mean Platelet Volume 7.9; Monocytes # (A) 0.8 k/uL (0-1.0); Monocytes % (A) 9 %; Neutrophils # (A) 5.7 k/uL (1.3-7.7); Neutrophils % (A) 71 %; Platelet Count 278 k/uL (150-450); RBC 3.88 m/uL (3.80-5.40); RDW 12.9 % (11.5-15.5); WBC 8.1 k/uL (3.8-10.6)
--- NOTE | 2022-12-21 14:40 | XR ---
EXAMINATION TYPE: XR chest 2V DATE OF EXAM: 12/21/2022 COMPARISON: 04/03/2022 TECHNIQUE: PA and lateral views submitted. HISTORY: Cough FINDINGS: Large left upper lobe area of consolidation. Postsurgical change right shoulder, arthropathy left beatris ulder. Atherosclerotic change aorta. Postsurgical mediastinum. Mild hyperinflation correlate for COPD .. Heart size normal and no overt failure. Osseous structures demonstrate hypertrophic and degenerat viri changes of the spine. IMPRESSION: 1. Large area of consolidation left upper lobe correlate for pneumonia otherwise consider neoplasm..
[2022-12-21 14:47] LABS: INR 0.9 (<1.2); Partial Thromboplastin Time 23.5 sec (22.0-30.0); Prothrombin Time 9.9 sec (9.0-12.0)
[2022-12-21 15:04] LABS: ALT 16 U/L (4-34); AST 21 U/L (14-36); African American GFR (CKD) >90 (>60 ml/min/1.73 sqM); Albumin 3.4 g/dL (3.5-5.0); Alkaline Phosphatase 91 U/L (38-126); Anion Gap 7 mmol/L; Blood Urea Nitrogen 14 mg/dL (7-17); Calcium 9.3 mg/dL (8.4-10.2); Carbon Dioxide 29 mmol/L (22-30); Chloride 102 mmol/L (98-107); Glucose 112 mg/dL (74-99); Non-African American GFR(CKD) 87 (>60 ml/min/1.73 sqM); Potassium 4.1 mmol/L (3.5-5.1); Sodium 138 mmol/L (137-145); Total Bilirubin 0.8 mg/dL (0.2-1.3); Total Protein 5.8 g/dL (6.3-8.2)
--- NOTE | 2022-12-21 15:13 | ED ---
SOB HPI - General Chief Complaint: Shortness of Breath Stated Complaint: pneumonia sent by DR Maddox Seen by Provider: 12/21/22 13:27 Source: patient Mode of arrival: ambulatory Limitations: no limitations - History of Present Illness Initial Comments: 72-year-old female with multiple medical conditions presents to the emergency room for [facility]. States she went in there reporting shortness of breath and cough. He wrote her for a prescription for Cipro and dexamethasone. She then reports that he told her to go into the emergency department for admission. She has non-Hodgkin's lymphoma. Not currently on any chemo. She also has a history of COPD. Has been using her inhalers without any improvement. Denies fevers. No nausea or vomiting. No chest pain. No other alleviating, precipitating or modifying factors - Related Data Home Medications Medication Instructions Recorded Confirmed Simvastatin [Zocor] 80 mg PO HS 03/21/14 12/21/22 Ergocalciferol [Vitamin D2 50,000 unit PO MO 10/09/14 12/21/22 (ISDOL)] Levothyroxine Sodium [Synthroid] 150 mcg PO DAILY 10/09/14 12/21/22 Glimepiride [Amaryl] 1 mg PO DAILY 10/08/15 12/21/22 HYDROcodone/APAP 10-325MG [Marianna 1 tab PO Q4-6H PRN 08/22/18 12/21/22 10-325] Multivitamins, Thera [Multivitamin 1 tab PO DAILY 07/04/21 12/21/22 (formulary)] Ferrous Sulfate [Iron (65 MG 325 mg PO DAILY 12/28/21 12/21/22 Elemental)] levETIRAcetam [Keppra] 750 mg PO BID 12/28/21 12/21/22 Fluticasone Propion/Salmeterol 1 puff INHALATION RT-BID 12/02/22 12/21/22 [Advair 250-50 Diskus] Omeprazole [PriLOSEC] 40 mg PO DAILY 12/02/22 12/21/22 Zafirlukast [Accolate] 20 mg PO BID 12/02/22 12/21/22 Metoprolol Succinate [Metoprolol 25 mg PO HS 12/21/22 12/21/22 Succinate ER] Sacubitril/Valsartan [Entresto 24 1 tab PO BID@0700,1400 12/21/22 12/21/22 mg-26 mg Tablet] Umeclidinium [place] [Incruse 1 puff INHALATION RT-DAILY 12/21/22 12/21/22 Ellipta] rOPINIRole HCL [Requip] 2 mg PO HS 12/21/22 12/21/22 Previous Rx's Medication Instructions Recorded Aspirin EC [Ecotrin Low Dose] 81 mg PO DAILY #0 09/13/19 Amoxic-Pot Clav 875-125Mg 1 tab PO Q12HR 10 Days #20 tab 12/25/22 [Augmentin 875-125] guaiFENesin-Coden 100-10MG/5ML 10 ml PO TID PRN ml 12/25/22 [Robitussin AC] Allergies Allergy/AdvReac Type Severity Reaction Status Date / Time allopurinol Allergy Itching Verified 12/21/22 15:13 cephalexin monohydrate Allergy Itching Verified 12/21/22 15:13 [From Keflex] clindamycin Allergy Itching Verified 12/21/22 15:13 NSAIDS (Non-Steroidal AdvReac Unknown STATES NO Verified 12/21/22 15:13 Anti-Inflamma NSAIDS DUE TO GASTRIC BYPASS ciprofloxacin [From Cipro] AdvReac Itching Verified 12/21/22 15:13 doxycycline AdvReac Itching Verified 12/21/22 15:13 Review of Systems ROS Statement: Those systems with pertinent positive or pertinent negative responses have been documented in the HPI. ROS Other: All systems not noted in ROS Statement are negative. 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, hydrocephalus/had brain surgery for this then another surgery d/t "blood at surgical site and they put a tube in there" at [facility], ischemic heart disease, NIDDM, Occasional neuropathy bilateral hands. deaf/chronic otitis media L ear, AGUA CALIENTE R ear, chronic low back/neck pain, vertigo, L hand NT R/T hx L wrist fx, RLS, varicosities, possible IBS/colitis/crohn's per pt in the past, uses C-PAP, hypothyroid, sinus allergies, eczema, iron def. anemia with iron infusion, past UTI with sepsis, recent stress test, "slow heart rate" History of Any Multi-Drug Resistant Organisms: None Reported Past Surgical History: Appendectomy, Bariatric Surgery, Bowel Resection, Cholecystectomy, Coronary Bypass/CABG, Heart Catheterization, Hernia Repair, Joint Replacement, Orthopedic Surgery, Tubal Ligation Additional Past Surgical History / Comment(s): Brain surgery at [facility] for hydrocephalus then d/t blood at surgical site/drain placed per patient, 09/29/18 removal R ear ventilation tube, R tympanomastoidectomy, CABG x1 vessel (1992), bilateral shoulder surgery/ rt shoulder rotator cuff, bilateral carpal tunnel releases, L wrist surgery d/t injury, total L knee, total R hip, lap banding, gastric bypass w/ lap band removal 2013, colonoscopy, R colectomy d/t mass, EGD, umbilical hernia repair, pain clinic procedures Past Anesthesia/Blood Transfusion Reactions: Motion Sickness Additional Past Anesthesia/Blood Transfusion Reaction / Comment(s): VERTIGO Past Psychological History: No Psychological Hx Reported Smoking Status: Former smoker Past Alcohol Use History: None Reported Past Drug Use History: None Reported - Past Family History Mother Additional Family Medical History / Comment(s): Pt states her mother never went to the doctor so she does not know of any medical problems. Mother lived to be 87yrs old. Father Additional Family Medical History / Comment(s): Father at the age of 67yrs, pt does not know cause of . Sister(s) Family Medical History: Cancer Additional Family Medical History / Comment(s): LUNG CA General Exam Limitations: no limitations General appearance: alert, in no apparent distress Head exam: Present: atraumatic, normocephalic, normal inspection Eye exam: Present: normal appearance, PERRL, EOMI. Absent: scleral icterus, conjunctival injection, periorbital swelling ENT exam: Present: normal exam, mucous membranes moist Neck exam: Present: normal inspection. Absent: tenderness, meningismus, lymphadenopathy Respiratory exam: Present: rales. Absent: respiratory distress, wheezes, rhonchi, stridor Cardiovascular Exam: Present: regular rate, normal rhythm, normal heart sounds. Absent: systolic murmur, diastolic murmur, rubs, gallop, clicks GI/Abdominal exam: Present: soft, normal bowel sounds. Absent: distended, tenderness, guarding, rebound, rigid Extremities exam: Present: normal inspection, full ROM, normal capillary refill. Absent: tenderness, pedal edema, joint swelling, calf tenderness Back exam: Present: normal inspection Neurological exam: Present: alert, oriented X3, CN II-XII intact Psychiatric exam: Present: normal affect, normal mood Skin exam: Present: warm, dry, intact, normal color. Absent: rash Course Vital Signs 12/21/22 12/21/22 13:01 14:04 Temperature 98 F Pulse Rate 62 74 Respiratory 20 20 Rate Blood Pressure 126/71 105/60 O2 Sat by Pulse 93 L 97 Oximetry Medical Decision Making - Medical Decision Making Was pt. sent in by a medical professional or institution (, PA, HYDRAULIC RIVETER, urgent care, hospital, or chcf...) When possible be specific @ - Dr. Berg Did you speak to anyone other than the patient for history (EMS, parent, family, police, friend...)? What history was obtained from this source @ -No Did you review nursing and triage notes (agree or disagree)? Why? @ -I reviewed and agree with nursing and triage notes Were old charts reviewed (outside hosp., previous admission, EMS record, old EKG, old radiological studies, urgent care reports/EKG's, chcf records)? Report findings @ -No old charts were reviewed Differential Diagnosis (chest pain, altered mental status, abdominal pain women, abdominal pain men, vaginal bleeding, weakness, fever, dyspnea, syncope, headache, dizziness, GI bleed, back pain, seizure, CVA, palpatations, mental health, musculoskeletal)? @ -covid, influenza, otitis media, gastroenteritis, viral syndrome, pneumonia EKG interpreted by me (3pts min.). @ -EKG interpreted by me - see above X-rays interpreted by me (1pt min.). @ -interpreted by me - infiltrate CT interpreted by me (1pt min.). @ -None done U/S interpreted by me (1pt. min.). @ -None done What testing was considered but not performed or refused? (CT, X-rays, U/S, labs)? Why? @ -None What meds were considered but not given or refused? Why? @ -None Did you discuss the management of the patient with other professionals (professionals i.e. DrMireille, PA, HYDRAULIC RIVETER, lab, RT, psych nurse, clinical social work therapist, developer [employer], teacher, national insurance officer, cyanide case hardener)? Give summary @ -Dr. Berg - he will admit the patient Was smoking cessation discussed for >3mins.? @ -No Was critical care preformed (if so, how long)? @ -No Were there social determinants of health that impacted care today? How? (Homelessness, low income, unemployed, alcoholism, drug addiction, transportation, low edu. Level, literacy, decrease access to med. care, senior care, rehab)? @ -No Was there de-escalation of care discussed even if they declined (Discuss DNR or withdrawal of care, Hospice)? DNR status @ -No What co-morbidities impacted this encounter? (DM, HTN, Smoking, COPD, CAD, Cancer, CVA, ARF, Chemo, Hep., AIDS, mental health diagnosis, sleep apnea, morbid obesity)? @ -lymphoma Was patient admitted / discharged? Hospital course, mention meds given and route, prescriptions, significant lab abnormalities, going to OR and other pertinent info. @ -Parietal patient is placed into room 22. A thorough history and physical exam was performed. IV access is established and laboratory studies are conducted. Chest x-ray demonstrates left-sided infiltrates. Spoke with Dr. Santiago who agreed to admit the patient. She is placed on Zosyn and azithromycin. Dr. Medrano will be counseled as she does have multiple drug ALLERGIES Undiagnosed new problem with uncertain prognosis? @ -Yes Drug Therapy requiring intensive monitoring for toxicity (Heparin, Nitro, Insulin, Cardizem)? @ -No Were any procedures done? @ -No Diagnosis/symptom? @ -acute cough, CAP Acute, or Chronic, or Acute on Chronic? @ -acute Uncomplicated (without systemic symptoms) or Complicated (systemic symptoms)? @ -complicated Side effects of treatment? @ -No Exacerbation, Progression, or Severe Exacerbation? @ -No Poses a threat to life or bodily function? How? (Chest pain, USA, AR, pneumonia, PE, COPD, DKA, ARF, appy, cholecystitis, CVA, Diverticulitis, Homicidal, Suicidal, threat to staff... and all critical care pts) @ -No - Lab Data Result diagrams: 12/25/22 07:07 12/25/22 07:07 Lab Results 12/21/22 12/21/22 12/21/22 Range/Units 14:26 14:26 14:26 WBC 8.1 (3.8-10.6) k/uL RBC 3.88 (3.80-5.40) m/uL Hgb 12.6 (11.4-16.0) gm/dL Hct 40.6 (34.0-46.0) % MCV 104.7 H (80.0-100.0) fL MCH 32.4 (25.0-35.0) pg MCHC 31.0 (31.0-37.0) g/dL RDW 12.9 (11.5-15.5) % Plt Count 278 (150-450) k/uL MPV 7.9 Neutrophils % 71 % Lymphocytes % 16 % Monocytes % 9 % Eosinophils % 2 % Basophils % 0 % Neutrophils # 5.7 (1.3-7.7) k/uL Lymphocytes # 1.3 (1.0-4.8) k/uL Monocytes # 0.8 (0-1.0) k/uL Eosinophils # 0.1 (0-0.7) k/uL Basophils # 0.0 (0-0.2) k/uL Hypochromasia Slight Macrocytosis Slight PT 9.9 (9.0-12.0) sec INR 0.9 (<1.2) APTT 23.5 (22.0-30.0) sec Sodium 138 (137-145) mmol/L Potassium 4.1 (3.5-5.1) mmol/L Chloride 102 (98-107) mmol/L Carbon Dioxide 29 (22-30) mmol/L Anion Gap 7 mmol/L BUN 14 (7-17) mg/dL Creatinine 0.71 (0.52-1.04) mg/dL Est GFR (CKD-EPI)AfAm >90 (>60 ml/min/1.73 sqM) Est GFR (CKD-EPI)NonAf 87 (>60 ml/min/1.73 sqM) Glucose 112 H (74-99) mg/dL Plasma Lactic Acid Broderick (0.7-2.0) mmol/L Calcium 9.3 (8.4-10.2) mg/dL Magnesium 2.0 (1.6-2.3) mg/dL Total Bilirubin 0.8 (0.2-1.3) mg/dL AST 21 (14-36) U/L ALT 16 (4-34) U/L Alkaline Phosphatase 91 (38-126) U/L Troponin I (0.000-0.034) ng/mL NT-Pro-B Natriuret Pep pg/mL Total Protein 5.8 L (6.3-8.2) g/dL Albumin 3.4 L (3.5-5.0) g/dL Influenza Type A (PCR) (Not Detectd) Influenza Type B (PCR) (Not Detectd) RSV (PCR) (Not Detectd) SARS-CoV-2 (PCR) (Not Detectd) 12/21/22 12/21/22 12/21/22 Range/Units 14:26 14:26 14:26 WBC (3.8-10.6) k/uL RBC (3.80-5.40) m/uL Hgb (11.4-16.0) gm/dL Hct (34.0-46.0) % MCV (80.0-100.0) fL MCH (25.0-35.0) pg MCHC (31.0-37.0) g/dL RDW (11.5-15.5) % Plt Count (150-450) k/uL MPV Neutrophils % % Lymphocytes % % Monocytes % % Eosinophils % % Basophils % % Neutrophils # (1.3-7.7) k/uL Lymphocytes # (1.0-4.8) k/uL Monocytes # (0-1.0) k/uL Eosinophils # (0-0.7) k/uL Basophils # (0-0.2) k/uL Hypochromasia Macrocytosis PT (9.0-12.0) sec INR (<1.2) APTT (22.0-30.0) sec Sodium (137-145) mmol/L Potassium (3.5-5.1) mmol/L Chloride (98-107) mmol/L Carbon Dioxide (22-30) mmol/L Anion Gap mmol/L BUN (7-17) mg/dL Creatinine (0.52-1.04) mg/dL Est GFR (CKD-EPI)AfAm (>60 ml/min/1.73 sqM) Est GFR (CKD-EPI)NonAf (>60 ml/min/1.73 sqM) Glucose (74-99) mg/dL Plasma Lactic Acid Broderick 1.1 (0.7-2.0) mmol/L Calcium (8.4-10.2) mg/dL Magnesium (1.6-2.3) mg/dL Total Bilirubin (0.2-1.3) mg/dL AST (14-36) U/L ALT (4-34) U/L Alkaline Phosphatase (38-126) U/L Troponin I <0.012 (0.000-0.034) ng/mL NT-Pro-B Natriuret Pep 750 pg/mL Total Protein (6.3-8.2) g/dL Albumin (3.5-5.0) g/dL Influenza Type A (PCR) (Not Detectd) Influenza Type B (PCR) (Not Detectd) RSV (PCR) (Not Detectd) SARS-CoV-2 (PCR) (Not Detectd) 12/21/22 Range/Units 14:26 WBC (3.8-10.6) k/uL RBC (3.80-5.40) m/uL Hgb (11.4-16.0) gm/dL Hct (34.0-46.0) % MCV (80.0-100.0) fL MCH (25.0-35.0) pg MCHC (31.0-37.0) g/dL RDW (11.5-15.5) % Plt Count (150-450) k/uL MPV Neutrophils % % Lymphocytes % % Monocytes % % Eosinophils % % Basophils % % Neutrophils # (1.3-7.7) k/uL Lymphocytes # (1.0-4.8) k/uL Monocytes # (0-1.0) k/uL Eosinophils # (0-0.7) k/uL Basophils # (0-0.2) k/uL Hypochromasia Macrocytosis PT (9.0-12.0) sec INR (<1.2) APTT (22.0-30.0) sec Sodium (137-145) mmol/L Potassium (3.5-5.1) mmol/L Chloride (98-107) mmol/L Carbon Dioxide (22-30) mmol/L Anion Gap mmol/L BUN (7-17) mg/dL Creatinine (0.52-1.04) mg/dL Est GFR (CKD-EPI)AfAm (>60 ml/min/1.73 sqM) Est GFR (CKD-EPI)NonAf (>60 ml/min/1.73 sqM) Glucose (74-99) mg/dL Plasma Lactic Acid Broderick (0.7-2.0) mmol/L Calcium (8.4-10.2) mg/dL Magnesium (1.6-2.3) mg/dL Total Bilirubin (0.2-1.3) mg/dL AST (14-36) U/L ALT (4-34) U/L Alkaline Phosphatase (38-126) U/L Troponin I (0.000-0.034) ng/mL NT-Pro-B Natriuret Pep pg/mL Total Protein (6.3-8.2) g/dL Albumin (3.5-5.0) g/dL Influenza Type A (PCR) Not Detected (Not Detectd) Influenza Type B (PCR) Not Detected (Not Detectd) RSV (PCR) Not Detected (Not Detectd) SARS-CoV-2 (PCR) Not Detected (Not Detectd) - EKG Data EKG Comments: EKG demonstrates sinus rhythm with rate of 65. TN interval 110. QRS 116. QTC of 421. Inverted T waves V2 V3. No acute ST segment elevation Disposition Clinical Impression: CAP (community acquired pneumonia) Disposition: ADMITTED IP TO THIS [facility] Condition: Stable Is patient prescribed a controlled substance at d/c from ED?: No Time of Disposition: 15:37 Decision to Admit Reason: Admit from EC Decision Date: 12/21/22 Decision Time: 15:38
[2022-12-21] MEDS ORDERED: ACETAMINOPHEN TAB 325 MG TAB PO PRN (15:30)
[2022-12-21] MEDS ORDERED: PNEUMONIA PROTOCOL UTILIZED 1 EACH MISC PO PRN (15:30)
[2022-12-21] MEDS ORDERED: AZITHROMYCIN 500 MG in SODIUM CHLORIDE 0.9% 250 ML IVPB STA (15:35)
[2022-12-21] MEDS ORDERED: PIPERACILLIN-TAZOBACTAM 3.375 GM in SODIUM CHLORIDE 0.9% 100 ML IVPB STA (15:35)
[2022-12-21] MEDS ORDERED: metroNIDAZOLE-NS PMX 500 MG in SALINE 1 100ML.BAG IVPB SCH (16:00)
[2022-12-21] MEDS ORDERED: SACUBITRIL/VALSARTAN 24 MG-26 MG TABLET PO STA (16:29)
[2022-12-21] MEDS: IPRATROPIUM-ALBUTEROL 3 ML NEB INHALATION SCH ×2 (16:37→21:11)
[2022-12-21] MEDS ORDERED: HYDROcodone/APAP 10-325MG 1 EACH TAB PO PRN (18:17)
[2022-12-21 21:03] LABS: Glucose,Whole Blood 112 mg/dL (70-110)
[2022-12-21] MEDS: METOPROLOL SUCCINATE (ER) 25 MG TAB.ER.24H PO SCH (21:32)
[2022-12-21] MEDS: ATORVASTATIN 40 MG TAB PO SCH (21:32)
[2022-12-21] MEDS: MONTELUKAST 10 MG TAB PO SCH (21:32)
[2022-12-22] MEDS: methylPREDNISolone SOD SUCCI 40 MG/ML 1 ML VIAL IV SCH ×3 (00:37→15:22)
[2022-12-22] MEDS: PIPERACILLIN-TAZOBACTAM 3.375 GM in SODIUM CHLORIDE 0.9% 100 ML IVPB SCH ×4 (00:38→23:59)
[2022-12-22] MEDS: HYDROcodone/APAP 10-325MG 1 EACH TAB PO PRN ×6 (01:31→23:59)
--- NOTE | 2022-12-22 03:17 | HP ---
HISTORY AND PHYSICAL HISTORY OF PRESENT ILLNESS: This 72-year-old white female came in with shortness of breath, cough, congestion, shortness of breath, failing outpatient treatment, Cipro, steroids. Due to significant shortness of breath, the patient was admitted in the hospital. History of non- Hodgkin's lymphoma, chemo, nausea and vomiting. MEDICATIONS: 1. Zocor 80 mg daily. 2. Vitamin D 2000 international units weekly. 3. Synthroid 150 mcg daily. 4. Amaryl 1 mg daily. 5. Watson 10/325 every 4. 6. Multivitamin daily. 7. Ferrous sulfate 325 daily. 8. Omeprazole 40 mg daily. 9. Advair Diskus 250/50 one puff b.i.d. 10.Trelegy Ellipta 1 puff daily. 11.Entresto 24/26 b.i.d. 12. 20 b.i.d. 13.Prilosec 40 daily. 14.Requip 2 mg daily. ALLERGIES: See list, reviewed. PAST MEDICAL AND PAST SURGICAL HISTORY: Reviewed. PHYSICAL EXAMINATION: VITAL SIGNS: Temperature , respiratory rate 30 to 35, pulse 60s to 70s, blood pressure 120s to 105 over 60 to 70, and O2 93 on room air. LUNGS: Scattered rhonchi and wheeze, especially in the right lower quadrant. CARDIOVASCULAR: S1, S2 tachycardic. PSYCH: Fair mood and affect. NEUROLOGIC: Alert and oriented x3. INTEGUMENT: Dry skin turgor, dry mucous membranes. ASSESSMENT: Community-acquired pneumonia for outpatient treatment, acute hypoxemic respiratory failure, possible pneumonia versus lung mass. CAT scan of the chest, IV antibiotics, steroids. Prognosis guarded. MMODL / IJN: [id number] /
[2022-12-22] MEDS: LEVOTHYROXINE 75 MCG TAB PO SCH (06:00)
[2022-12-22 06:04] LABS: Glucose,Whole Blood 208 mg/dL (70-110)
--- NOTE | 2022-12-22 08:00 | CT ---
EXAMINATION TYPE: CT chest wo con CT DLP: 971.1 mGycm, Automated exposure control for dose reduction was used. DATE OF EXAM: 12/22/2022 7:24 AM COMPARISON: Chest radiograph from 12/21/2022 CLINICAL INDICATION:Female, 72 years old with history of cap; PHH, Acute respiratory insufficiency, c ommunity acquired pneumonia TECHNIQUE: Multiple axial images were obtained through the chest without IV contrast. Lack of IV or o ral contrast limits evaluation of solid and hollow organ viscera. . Coronal and sagittal reformats re viewed. FINDINGS: LUNGS/ PLEURA: No pneumothorax or pleural effusion. Patchy consolidative and groundglass opacities pr imarily within the left upper lobe and small amount in the left lower lobe. The right lung is essenti ally clear. AIRWAY: Patent and unremarkable.. HEART: The heart is mildly increased in size.. No pericardial effusion. Post CABG changes. MEDIASTINUM: No gross evidence of adenopathy. VASCULATURE: No aortic aneurysm. Atherosclerotic calcification of the aorta and its branches. MUSCULOSKELETAL: No acute osseous abnormalities. Reverse right shoulder arthroplasty. Median sternoto my wires. Degenerative changes of the thoracic spine. SOFT TISSUES/LYMPH NODES: Unremarkable. LOWER NECK: No significant findings. UPPER ABDOMEN: Small hiatal hernia with post surgical changes from Danielito-en-Y gastric bypass. Postchol ecystectomy changes. Left renal cyst measuring up to 2.6 cm. Nonspecific thickening of the left adren al gland. Calcified granuloma within the right hepatic lobe. IMPRESSION: 1. Patchy groundglass and consolidative opacities throughout the left lung most pronounced in the lef t upper lobe consistent with pneumonia. 2. Cardiomegaly with post CABG changes.
[2022-12-22] MEDS: PANTOPRAZOLE 40 MG TABLET PO SCH (08:56)
[2022-12-22] MEDS: GLIMEPIRIDE 1 MG TAB PO SCH (08:57)
[2022-12-22] MEDS: AZITHROMYCIN 500 MG in SODIUM CHLORIDE 0.9% 250 ML IVPB SCH (08:57)
[2022-12-22] MEDS: FERROUS SULFATE 325 MG TAB PO SCH (08:57)
[2022-12-22] MEDS: MULTIVITAMINS, THERA 1 EACH TAB PO SCH (08:57)
[2022-12-22] MEDS: IPRATROPIUM-ALBUTEROL 3 ML NEB INHALATION SCH ×4 (09:18→20:57)
[2022-12-22 11:35] LABS: Glucose,Whole Blood 209 mg/dL (70-110)
[2022-12-22] MEDS: SACUBITRIL/VALSARTAN 24 MG-26 MG TABLET PO SCH (15:22)
[2022-12-22 16:47] LABS: Glucose,Whole Blood 245 mg/dL (70-110)
[2022-12-22] MEDS: ATORVASTATIN 40 MG TAB PO SCH (20:06)
[2022-12-22] MEDS: METOPROLOL SUCCINATE (ER) 25 MG TAB.ER.24H PO SCH (20:06)
[2022-12-22] MEDS: MONTELUKAST 10 MG TAB PO SCH (20:06)
--- NOTE | 2022-12-22 20:57 | P.CONS ---
History of Present Illness - Reason for Consult Consult date: 12/22/22 Community acquired pneumonia Requesting physician: Padilla Santiago - Chief Complaint Shortness of breath and cough x few days - History of Present Illness Patient is a 72-year-old female with a past medical history significant for diabetes mellitus reflux hypertension hyperlipidemia coronary artery disease history of non-Hodgkin lymphoma has been sent from the PCP office for evaluation of increasing shortness of breath and cough in this patient symptom has been going on for about a week patient did have a cough which has been moderate intensity and bring up some yellow sputum no hemoptysis no pleuritic chest pain patient denies having any nausea vomiting no abdominal pain or diarrhea has been treated with Cipro dexamethasone without any improvement hence patient was sent to the ER for further evaluation on presentation the hospital the patient was afebrile and no fever have been called subsequently patient did have mild hypoxemia with O2 sats 91 to 92% however currently not requiring any supplemental oxygen patient did have a normal white count kidney function has been normal with signs of normal patient did test negative for influenza RSV and COVID sputum culture repeat currently pending patient did have a chest x-ray larger consolidation left upper lobe correlate for pneumonia otherwise consider neoplasm patient also have a CT of the chest patchy groundglass and consolidative opacities throughout left lung most pronounced in the left upper lobe consistent with pneumonia patient is currently being treated with the azithromycin and Zosyn infectious disease was consulted for further management of antibiotic therapy patient did have allergies to Doxy cephalexin and clindamycin Review of Systems Positive point and negatives has been mentioned in the HPI, complete review of systems was performed and all other systems are negative 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, hydrocephalus/had brain surgery for this then another surgery d/t "blood at surgical site and they put a tube in there" at [facility], ischemic heart disease, NIDDM, Occasional neuropathy bilateral hands. deaf/chronic otitis media L ear, [place] R ear, chronic low back/neck pain, vertigo, L hand NT R/T hx L wrist fx, RLS, varicosities, possible IBS/colitis/crohn's per pt in the past, uses C-PAP, hypothyroid, sinus allergies, eczema, iron def. anemia with iron infusion, past UTI with sepsis, recent stress test, "slow heart rate" History of Any Multi-Drug Resistant Organisms: None Reported Past Surgical History: Appendectomy, Bariatric Surgery, Bowel Resection, Chol ecystectomy, Coronary Bypass/CABG, Heart Catheterization, Hernia Repair, Joint Replacement, Orthopedic Surgery, Tubal Ligation Additional Past Surgical History / Comment(s): Brain surgery at [facility] for hydrocephalus then d/t blood at surgical site/drain placed per patient, 09/29/18 removal R ear ventilation tube, R tympanomastoidectomy, CABG x1 vessel (1992), bilateral shoulder surgery/ rt shoulder rotator cuff, bilateral carpal tunnel releases, L wrist surgery d/t injury, total L knee, total R hip, lap banding, gastric bypass w/ lap band removal 2013, colonoscopy, R colectomy d/t mass, EGD, umbilical hernia repair, pain clinic procedures Past Anesthesia/Blood Transfusion Reactions: Motion Sickness Additional Past Anesthesia/Blood Transfusion Reaction / Comm: VERTIGO Past Psychological History: No Psychological Hx Reported Additional Psychological History / Comment(s): Single and lives in the family home with son, brother and grandchild. 3 pet dogs in the home. No service. No international travel. Does not work outside of the home. No current tobacco or alcohol use, stopped smoking in 1992 Smoking Status: Former smoker Past Alcohol Use History: None Reported Additional Past Alcohol Use History / Comment(s): Pt started smoking in 1970, quit in 1992. Past Drug Use History: None Reported - Past Family History Mother Additional Family Medical History / Comment(s): Pt states her mother never went to the doctor so she does not know of any medical problems. Mother lived to be 87yrs old. Father Additional Family Medical History / Comment(s): Father at the age of 67yrs, pt does not know cause of . Sister(s) Family Medical History: Cancer Additional Family Medical History / Comment(s): LUNG CA Medications and Allergies Home Medications Medication Instructions Recorded Confirmed Type Simvastatin [Zocor] 80 mg PO HS 03/21/14 12/21/22 History Ergocalciferol [Vitamin D2 50,000 unit PO MO 10/09/14 12/21/22 History (DRISDOL)] Levothyroxine Sodium [Synthroid] 150 mcg PO DAILY 10/09/14 12/21/22 History Glimepiride [Amaryl] 1 mg PO DAILY 10/08/15 12/21/22 History HYDROcodone/APAP 10-325MG [Fleming 1 tab PO Q4-6H PRN 08/22/18 12/21/22 History 10-325] Aspirin EC [Ecotrin Low Dose] 81 mg PO DAILY #0 09/13/19 12/21/22 Rx Multivitamins, Thera [Multivitamin 1 tab PO DAILY 07/04/21 12/21/22 History (formulary)] Ferrous Sulfate [Iron (65 MG 325 mg PO DAILY 12/28/21 12/21/22 History Elemental)] levETIRAcetam [Keppra] 750 mg PO BID 12/28/21 12/21/22 History Fluticasone Propion/Salmeterol 1 puff INHALATION RT-BID 12/02/22 12/21/22 History [Advair 250-50 Diskus] Omeprazole [PriLOSEC] 40 mg PO DAILY 12/02/22 12/21/22 History Zafirlukast [Accolate] 20 mg PO BID 12/02/22 12/21/22 History Metoprolol Succinate [Metoprolol 25 mg PO HS 12/21/22 12/21/22 History Succinate ER] Sacubitril/Valsartan [Entresto 24 1 tab PO BID@0700,1400 12/21/22 12/21/22 History mg-26 mg Tablet] Umeclidinium [place] [Incruse 1 puff INHALATION RT-DAILY 12/21/22 12/21/22 History Ellipta] rOPINIRole HCL [Requip] 2 mg PO HS 12/21/22 12/21/22 History Amoxic-Pot Clav 875-125Mg 1 tab PO Q12HR 10 Days #20 tab 12/25/22 Rx [Augmentin 875-125] guaiFENesin-Coden 100-10MG/5ML 10 ml PO TID PRN ml 12/25/22 Rx [Robitussin AC] Allergies Allergy/AdvReac Type Severity Reaction Status Date / Time allopurinol Allergy Itching Verified 12/21/22 15:13 cephalexin monohydrate Allergy Itching Verified 12/21/22 15:13 [From Keflex] clindamycin Allergy Itching Verified 12/21/22 15:13 NSAIDS (Non-Steroidal AdvReac Unknown STATES NO Verified 12/21/22 15:13 Anti-Inflamma NSAIDS DUE TO GASTRIC BYPASS ciprofloxacin [From Cipro] AdvReac Itching Verified 12/21/22 15:13 doxycycline AdvReac Itching Verified 12/21/22 15:13 Physical Exam Vitals: Vital Signs Temp Pulse Pulse Resp BP BP Pulse Ox 12/22/22 09:27 70 12/22/22 09:18 68 96 12/22/22 07:03 98.1 F 61 20 100/66 92 L 12/22/22 04:29 12/22/22 02:00 98 F 84 145/76 91 L 12/21/22 23:57 12/21/22 21:25 72 12/21/22 21:11 68 12/21/22 19:55 66 12/21/22 19:44 98.9 F 66 18 100/65 91 L 12/21/22 18:32 97.9 F 83 18 122/77 95 12/21/22 14:04 74 20 105/60 97 12/21/22 13:01 98 F 62 20 126/71 93 L FiO2 12/22/22 09:27 12/22/22 09:18 12/22/22 07:03 12/22/22 04:29 21 12/22/22 02:00 12/21/22 23:57 21 12/21/22 21:25 12/21/22 21:11 12/21/22 19:55 12/21/22 19:44 12/21/22 18:32 12/21/22 14:04 12/21/22 13:01 Intake and Output 12/21/22 12/22/22 12/22/22 22:59 06:59 14:59 Other: Voiding Method Toilet # Voids 0 3 # Bowel Movements 0 Weight 133.81 kg GENERAL DESCRIPTION: An elderly female lying in bed, no distress. No tachypnea or accessory muscle of respiration use. HEENT: Shows Pallor , no scleral icterus. Oral mucous membrane is dry. NECK: Trachea central, no thyromegaly. LUNGS: Unlabored breathing. Coarse breath sounds bilaterally with occasional wheeze HEART: S1, S2, regular rate and rhythm. No loud murmur ABDOMEN: Soft, no tenderness , EXTREMITIES: No edema of feet. SKIN: No rash, no masses palpable. NEUROLOGICAL: The patient is awake, alert, oriented x3, mood and affect normal. Results CBC & Chem 7: 12/25/22 07:07 12/25/22 07:07 Labs: Abnormal Lab Results - Last 24 Hours (Table) 12/21/22 12/21/22 12/21/22 Range/Units 14:26 14:26 21:02 MCV 104.7 H (80.0-100.0) fL Glucose 112 H (74-99) mg/dL POC Glucose (mg/dL) 112 H (70-110) mg/dL Total Protein 5.8 L (6.3-8.2) g/dL Albumin 3.4 L (3.5-5.0) g/dL 12/22/22 Range/Units 06:02 MCV (80.0-100.0) fL Glucose (74-99) mg/dL POC Glucose (mg/dL) 208 H (70-110) mg/dL Total Protein (6.3-8.2) g/dL Albumin (3.5-5.0) g/dL Assessment and Plan (1) Pneumonia Status: Acute Code(s): J18.9 - PNEUMONIA, UNSPECIFIED ORGANISM SNOMED Code(s): 980618283 Plan: 1patient admitted to the hospital with increasing shortness of breath and cough symptom has been going on for about a week failing outpatient oral antibiotic and steroids in this patient with a chest x-ray and CT did shows left upper lobe consolidation concerning for pneumonia failing outpatient or antibiotic therapy with a question of community-acquired versus aspiration/gram-negative 2-we will obtain a sputum for Gram stain and culture check a CRP and a procalcitonin 3-patient to continue Zosyn while awaiting further work-up to be completed We will follow on clinical condition and cultures to further adjust medication if needed Thank you for this consultation we will follow the patient along with you Time with Patient: Greater than 30
[2022-12-22 21:35] LABS: Glucose,Whole Blood 229 mg/dL (70-110)
[2022-12-22] MEDS: ONDANSETRON 4 MG/2 ML VIAL IVP PRN (22:43)
[2022-12-23] MEDS: HYDROcodone/APAP 10-325MG 1 EACH TAB PO PRN ×5 (05:08→21:15)
[2022-12-23 06:14] LABS: Glucose,Whole Blood 235 mg/dL (70-110)
[2022-12-23] MEDS: LEVOTHYROXINE 75 MCG TAB PO SCH (06:31)
[2022-12-23] MEDS: SACUBITRIL/VALSARTAN 24 MG-26 MG TABLET PO SCH ×2 (06:31→13:56)
[2022-12-23] MEDS: AZITHROMYCIN 500 MG in SODIUM CHLORIDE 0.9% 250 ML IVPB SCH (07:29)
[2022-12-23] MEDS: methylPREDNISolone SOD SUCCI 40 MG/ML 1 ML VIAL IV SCH ×4 (08:14→23:40)
[2022-12-23] MEDS: GLIMEPIRIDE 1 MG TAB PO SCH (08:32)
[2022-12-23] MEDS: FERROUS SULFATE 325 MG TAB PO SCH (08:32)
[2022-12-23] MEDS: PIPERACILLIN-TAZOBACTAM 3.375 GM in SODIUM CHLORIDE 0.9% 100 ML IVPB SCH ×3 (08:32→23:40)
[2022-12-23] MEDS: MULTIVITAMINS, THERA 1 EACH TAB PO SCH (08:32)
[2022-12-23] MEDS: PANTOPRAZOLE 40 MG TABLET PO SCH (08:33)
[2022-12-23] MEDS: guaiFENesin-Coden 100-10MG/5ML 10 ML CUP PO PRN ×3 (08:36→23:40)
[2022-12-23] MEDS: IPRATROPIUM-ALBUTEROL 3 ML NEB INHALATION SCH ×4 (08:53→20:05)
[2022-12-23 11:15] LABS: Glucose,Whole Blood 246 mg/dL (70-110)
--- NOTE | 2022-12-23 13:36 | CDI ---
Documentation Clarification Form Date: 12/23/2022 1:05:03 PM From: Anai Portillo RN CCDS Phone: [phone] Admit Date: 12/21/2022 3:30:00 PM Patient Name: Dylon Ochoa Visit Number: [id number] Discharge Date: ATTENTION: The Clinical Documentation Specialists (CDI) and [facility] Coding Staff appreciate your assistance in clarifying documentation. Please respond to the clarification below the line at the bottom and electronically sign. The CDI & [facility] Coding staff will review the response and follow-up if needed. Please note: Queries are made part of the Legal Health Record. If you have any questions, please contact the author of this message via ITS. Dr. Padilla Santiago Acute Hypoxemic Respiratory Failure is documented 12/21, H&P which may lack sufficient clinical evidence/support in the medical record. Additional clarification is requested. History/Risk Factors: 72 year old female presents with shortness of breath, congestion and failing outpatient treatment. Medical History: Sleep Apnea CPAP/BIPAA, HTN, CAD, COPD and DM. 12/22, ID consult Clinical Indicators: 12/22, ID consult: Sleep Apnea / CPAP/BIPAP 12/21 13:01 room air SpO2 93% - 12/21 23:57 Room air 12/21 23:57 - 12/22 07:03 CPAP 12/22 07:03 Room air SpO2 92% 20:57 Room air 12/22 20:57 - 12/23 07:23 CPAP 12/23 07:23 Room air SpO2 92% Treatment: CPAP at HS Please clarify if Acute Hypoxemic Respiratory Failure is a valid diagnosis? [ ] Yes, Acute Hypoxemic Respiratory Failure is present as evidence by (additional clinical support): [ ] No, Acute Hypoxemic Respiratory Failure is ruled out [ ] Other (please specify diagnosis) [ ] Unable to determine (Template Last Revised: October 2020) JANEED
--- NOTE | 2022-12-23 15:12 | P.PN ---
Subjective Progress Note Date: 12/23/22 Principal diagnosis: Pneumonia and positive blood culture Patient is a 72-year-old female with a past medical history significant for diabetes mellitus reflux hypertension hyperlipidemia coronary artery disease history of non-Hodgkin lymphoma has been sent from the PCP office for evaluation of increasing shortness of breath and cough, patient did have chest x-ray as well as CT of the chest suggestive of left upper lobe pneumonia. On today's evaluation that is 12/23/2022, the patient denies having any fever or chills, the patient is breathing slightly comfortably patient cough is decreased intensity no nausea no vomiting no abdominal pain or diarrhea Objective - Vital Signs Vital signs: Vital Signs Temp 97.7 F 12/23/22 13:47 Pulse 85 12/23/22 13:47 Resp 18 12/23/22 13:47 BP 115/65 12/23/22 13:47 Pulse Ox 93 L 12/23/22 13:47 FiO2 21 12/23/22 04:01 Intake & Output 12/22/22 12/23/22 12/23/22 18:59 06:59 18:59 Intake Total 360 Balance 360 Intake: Oral 360 Other: Voiding Method Toilet # Voids 1 2 # Bowel Movements 1 - Exam GENERAL DESCRIPTION: An elderly female up in bed in no distress RESPIRATORY SYSTEM: Unlabored breathing , decreased breath sounds at bases HEART: S1 S2 regular rate and rhythm , ABDOMEN: Soft , no tenderness EXTREMITIES: No edema feet - Labs CBC & Chem 7: 12/21/22 14:26 12/21/22 14:26 Labs: Abnormal Lab Results - Last 24 Hours (Table) 12/22/22 12/22/22 12/23/22 Range/Units 16:45 21:34 06:12 POC Glucose (mg/dL) 245 H 229 H 235 H (70-110) mg/dL 12/23/22 Range/Units 11:14 POC Glucose (mg/dL) 246 H (70-110) mg/dL Microbiology - Last 24 Hours (Table) 12/21/22 16:00 Blood Culture Gram Stain - Preliminary Blood Blood Culture - Preliminary Coagulase Negative Staph 12/21/22 16:15 Blood Culture Gram Stain - Preliminary Blood 12/21/22 21:47 Gram Stain - Preliminary Sputum Sputum Culture - Preliminary 12/21/22 21:47 Legionella Culture - Preliminary Sputum Assessment and Plan (1) Pneumonia Current Visit: Yes Status: Acute Code(s): J18.9 - PNEUMONIA, UNSPECIFIED ORGANISM SNOMED Code(s): 569530850 (2) Positive blood culture Current Visit: Yes Status: Acute Code(s): R78.81 - BACTEREMIA SNOMED Code(s): 375025003 Plan: 1patient admitted to the hospital with increasing shortness of breath and cough symptom has been going on for about a week failing outpatient oral antibiotic and steroids in this patient with a chest x-ray and CT did shows left upper lobe consolidation concerning for pneumonia failing outpatient or antibiotic therapy with a question of community-acquired versus aspiration/gram-negative 2- sputum for Gram stain and culture are currently pending 3-positive blood culture with staph epi likely skin contamination as patient has no clinical disease to go along with it blood cultures will be repeated 4-patient to continue Zosyn in view of clinical response and monitor clinical course closely Time with Patient: Less than 30
[2022-12-23 16:32] LABS: Glucose,Whole Blood 257 mg/dL (70-110)
[2022-12-23 20:36] LABS: Glucose,Whole Blood 259 mg/dL (70-110)
[2022-12-23] MEDS: METOPROLOL SUCCINATE (ER) 25 MG TAB.ER.24H PO SCH (21:16)
[2022-12-23] MEDS: MONTELUKAST 10 MG TAB PO SCH (21:16)
[2022-12-23] MEDS: ATORVASTATIN 40 MG TAB PO SCH (21:16)
[2022-12-23] MEDS: ONDANSETRON 4 MG/2 ML VIAL IVP PRN (21:18)
--- NOTE | 2022-12-24 00:44 | PN ---
PROGRESS NOTE SUBJECTIVE: This 72-year-old white female with pneumonia, COPD exacerbation, acute hypoxemic respiratory failure. The patient is seen by Infectious Disease, the patient wants to go home tomorrow. She is improving. CAT scan shows left upper lobe pneumonia. She wants to go home tomorrow, cough, congestion. OBJECTIVE: CARDIOVASCULAR: S1, S2. LUNGS: Scattered rhonchi and wheeze. HEMATOLOGY: Negative for Homans. PSYCH: Fair mood and affect. NEUROLOGIC: Alert and oriented x3. Positive blood culture, pneumonia, bacteremia. CAT scan shows left lobe consolidation. Sputum Gram stains are pending. Positive blood culture Staph, likely skin contamination. Repeat blood cultures. Continue with Zosyn, possible discharge home tomorrow if she is improved. MMODL / IJN: [id number] /
[2022-12-24] MEDS: HYDROcodone/APAP 10-325MG 1 EACH TAB PO PRN ×5 (02:38→20:38)
[2022-12-24 06:17] LABS: Glucose,Whole Blood 245 mg/dL (70-110)
[2022-12-24] MEDS: LEVOTHYROXINE 75 MCG TAB PO SCH (06:43)
[2022-12-24] MEDS: SACUBITRIL/VALSARTAN 24 MG-26 MG TABLET PO SCH ×2 (06:43→14:24)
[2022-12-24] MEDS: PANTOPRAZOLE 40 MG TABLET PO SCH (08:02)
[2022-12-24] MEDS: MULTIVITAMINS, THERA 1 EACH TAB PO SCH (08:02)
[2022-12-24] MEDS: FERROUS SULFATE 325 MG TAB PO SCH (08:03)
[2022-12-24] MEDS: methylPREDNISolone SOD SUCCI 40 MG/ML 1 ML VIAL IV SCH ×3 (08:03→23:52)
[2022-12-24] MEDS: PIPERACILLIN-TAZOBACTAM 3.375 GM in SODIUM CHLORIDE 0.9% 100 ML IVPB SCH (08:03)
[2022-12-24] MEDS: guaiFENesin-Coden 100-10MG/5ML 10 ML CUP PO PRN ×3 (08:08→23:54)
[2022-12-24] MEDS: GLIMEPIRIDE 1 MG TAB PO SCH (08:14)
--- NOTE | 2022-12-24 08:54 | XR ---
EXAMINATION TYPE: XR chest 2V DATE OF EXAM: 12/24/2022 COMPARISON: 12/21/2022 TECHNIQUE: PA and lateral views submitted. HISTORY: Cough FINDINGS: The lungs are clear and there is no pneumothorax, pleural effusion, or focal pneumonia. Osseous stru ctures demonstrate hypertrophic and degenerative changes of the spine. Postsurgical changes and cardi omegaly noted. Postsurgical changes right shoulder. Persistent stable large area of consolidation lef t upper lobe. IMPRESSION: 1. Stable left upper lobe consolidation correlate for pneumonia. Follow to resolution to exclude othe r etiologies.
[2022-12-24] MEDS: IPRATROPIUM-ALBUTEROL 3 ML NEB INHALATION SCH ×4 (09:12→21:03)
[2022-12-24 10:35] LABS: ALT 13 U/L (8-44); AST 14 U/L (13-35); African American GFR (CKD) 79.7 (60.0-200.0); Albumin 3.3 g/dL (3.8-4.9); Albumin/Globulin Ratio 1.67 (1.60-3.17); Alkaline Phosphatase 82 U/L (41-126); Blood Urea Nitrogen 20.4 mg/dL (9.0-27.0); Carbon Dioxide 29.4 mmol/L (20.0-27.5); Chloride 107 mmol/L (96-109); Glucose 223 mg/dL (70-110); HGB 11.6 g/dL (12.0-15.0); MCH 32.4 pg (27.0-32.0); MCHC 30.5 g/dL (32.0-37.0); MCV 106.1 fL (80.0-97.0); Mean Platelet Volume 9.9 fL (9.5-12.2); NRBC Per 100 WBC 0 /100 WBCS (0.0-0.0); Non-African American GFR(CKD) 68.7 (60.0-200.0); Platelet Count 320 X 10*3/uL (140-440); Potassium 5.8 mmol/L (3.5-5.5); RBC 3.58 X 10*6/uL (4.10-5.20); RDW 13.3 % (11.5-14.5); Sodium 143 mmol/L (135-145); Total Bilirubin <0.15 mg/dL (0.30-1.20); Total Protein 5.3 g/dL (6.2-8.2); WBC 8.16 X 10*3/uL (4.50-10.00)
[2022-12-24 11:13] LABS: Glucose,Whole Blood 209 mg/dL (70-110)
[2022-12-24 12:52] LABS: Acanthocytes 2+; Basophils # (A) 0.01 X 10*3/uL (0.00-0.10); Basophils % (A) 0.1 %; Eosinophils # (A) 0 X 10*3/uL (0.04-0.35); Eosinophils % (A) 0 %; Immature Grans, Automated 1.7 %; Lymphocytes # (A) 0.94 X 10*3/uL (0.90-5.00); Lymphocytes % (A) 11.5 %; Macrocytosis (M) 2+; Monocytes # (A) 0.45 X 10*3/uL (0.20-1.00); Monocytes % (A) 5.5 %; Neutrophils # (A) 6.62 X 10*3/uL (1.80-7.70); Neutrophils % (A) 81.2 %
--- NOTE | 2022-12-24 14:12 | P.PN ---
Subjective Progress Note Date: 12/24/22 Principal diagnosis: Pneumonia and positive blood culture Patient is a 72-year-old female with a past medical history significant for diabetes mellitus reflux hypertension hyperlipidemia coronary artery disease history of non-Hodgkin lymphoma has been sent from the PCP office for evaluation of increasing shortness of breath and cough, patient did have chest x-ray as well as CT of the chest suggestive of left upper lobe pneumonia. 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, no nausea no vomiting no abdominal pain or diarrhea Objective - Vital Signs Vital signs: Vital Signs Temp 97.7 F 12/24/22 06:58 Pulse 68 12/24/22 12:36 Resp 18 12/24/22 06:58 BP 97/60 12/24/22 06:58 Pulse Ox 94 L 12/24/22 09:12 FiO2 21 12/24/22 03:26 Intake & Output 12/23/22 12/24/22 12/24/22 18:59 06:59 18:59 Other: Voiding Method Toilet Toilet # Voids 3 2 - Exam GENERAL DESCRIPTION: An elderly female up in bed in no distress RESPIRATORY SYSTEM: Unlabored breathing , decreased breath sounds at bases HEART: S1 S2 regular rate and rhythm , ABDOMEN: Soft , no tenderness EXTREMITIES: No edema feet - Labs CBC & Chem 7: 12/24/22 04:28 12/24/22 04:28 Labs: Abnormal Lab Results - Last 24 Hours (Table) 12/23/22 12/23/22 12/24/22 Range/Units 16:31 20:24 04:28 RBC 3.58 L (4.10-5.20) X 10*6/uL Hgb 11.6 L (12.0-15.0) g/dL MCV 106.1 H (80.0-97.0) fL MCH 32.4 H (27.0-32.0) pg MCHC 30.5 L (32.0-37.0) g/dL Potassium (3.5-5.5) mmol/L Carbon Dioxide (20.0-27.5) mmol/L Anion Gap (10.00-18.00) mmol/L BUN/Creatinine Ratio (12.00-20.00) Ratio Glucose (70-110) mg/dL POC Glucose (mg/dL) 257 H 259 H (70-110) mg/dL Total Bilirubin (0.30-1.20) mg/dL C-Reactive Protein (0.00-0.80) mg/dL Total Protein (6.2-8.2) g/dL Albumin (3.8-4.9) g/dL 12/24/22 12/24/22 12/24/22 Range/Units 04:28 06:15 11:12 RBC (4.10-5.20) X 10*6/uL Hgb (12.0-15.0) g/dL MCV (80.0-97.0) fL MCH (27.0-32.0) pg MCHC (32.0-37.0) g/dL Potassium 5.8 H (3.5-5.5) mmol/L Carbon Dioxide 29.4 H (20.0-27.5) mmol/L Anion Gap 6.70 L (10.00-18.00) mmol/L BUN/Creatinine Ratio 23.80 H (12.00-20.00) Ratio Glucose 223 H (70-110) mg/dL POC Glucose (mg/dL) 245 H 209 H (70-110) mg/dL Total Bilirubin <0.15 L (0.30-1.20) mg/dL C-Reactive Protein 3.00 H (0.00-0.80) mg/dL Total Protein 5.3 L (6.2-8.2) g/dL Albumin 3.3 L (3.8-4.9) g/dL Microbiology - Last 24 Hours (Table) 12/21/22 21:47 Gram Stain - Final Sputum Sputum Culture - Final Marion sp,not albicans/galbr 12/21/22 16:00 Blood Culture Gram Stain - Final Blood Blood Culture - Final Coagulase Negative Staph 12/21/22 16:15 Blood Culture Gram Stain - Final Blood Blood Culture - Final Coagulase Negative Staph Assessment and Plan (1) Pneumonia Current Visit: Yes Status: Acute Code(s): J18.9 - PNEUMONIA, UNSPECIFIED ORGANISM SNOMED Code(s): 635363687 (2) Positive blood culture Current Visit: Yes Status: Acute Code(s): R78.81 - BACTEREMIA SNOMED Code(s): 211224669 Plan: 1patient admitted to the hospital with increasing shortness of breath and cough symptom has been going on for about a week failing outpatient oral antibiotic and steroids in this patient with a chest x-ray and CT did shows left upper lobe consolidation concerning for pneumonia failing outpatient or antibiotic therapy with a question of community-acquired versus aspiration/gram-negative 2- sputum for Gram stain and culture are currently growing Marion which is likely colonizer 3-positive blood culture with staph epi likely skin contamination , blood cultures has been repeated and currently pending 4With sputum negative for any resistant pathogen switch antibiotics to Unasyn, if the repeat blood cultures remains to be negative by tomorrow plan is to switch her over to oral Augmentin and close outpatient follow-up discussed with the admitting physician Time with Patient: Less than 30
[2022-12-24 16:56] LABS: Glucose,Whole Blood 241 mg/dL (70-110)
[2022-12-24] MEDS: AMPICILLIN-SULBACTAM 3 GM in SODIUM CHLORIDE 0.9% 100 ML IVPB SCH ×2 (17:08→23:53)
[2022-12-24] MEDS: MONTELUKAST 10 MG TAB PO SCH (20:32)
[2022-12-24] MEDS: ATORVASTATIN 40 MG TAB PO SCH (20:33)
[2022-12-24] MEDS: METOPROLOL SUCCINATE (ER) 25 MG TAB.ER.24H PO SCH (20:33)
[2022-12-24] MEDS: ONDANSETRON 4 MG/2 ML VIAL IVP PRN (20:38)
[2022-12-24 20:49] LABS: Glucose,Whole Blood 265 mg/dL (70-110)
[2022-12-25] MEDS: HYDROcodone/APAP 10-325MG 1 EACH TAB PO PRN ×3 (01:25→09:34)
--- NOTE | 2022-12-25 05:24 | PN ---
PROGRESS NOTE SUBJECTIVE: This is a 72-year-old white female remains on Zosyn, DuoNeb, Lipitor, iron, Amaryl, Robitussin-AC, [place] 10, Keppra, Synthroid, Solu-Medrol, Toprol-XL, pneumonia. Chest x- ray continues to show interstitial infiltrate. Dr. Medrano possibly go home tomorrow on oral antibiotics. She remains on Zosyn at this time. She had a blood culture that was positive, we could get contamination. Sputum shows Marion, blood cultures, coagulase negative strep. Blood cultures, 2 of them, both are positive. We have to keep in the hospital and monitor blood cultures. CONDITION: Stable. PROGNOSIS: Guarded. Continue treatment for pneumonia. MMODL / IJN: [id number] /
[2022-12-25] MEDS: AMPICILLIN-SULBACTAM 3 GM in SODIUM CHLORIDE 0.9% 100 ML IVPB SCH ×2 (05:32→11:08)
[2022-12-25] MEDS: LEVOTHYROXINE 75 MCG TAB PO SCH (05:32)
[2022-12-25] MEDS: SACUBITRIL/VALSARTAN 24 MG-26 MG TABLET PO SCH ×2 (06:09→12:45)
[2022-12-25] MEDS: PANTOPRAZOLE 40 MG TABLET PO SCH (06:09)
[2022-12-25 06:17] LABS: Glucose,Whole Blood 250 mg/dL (70-110)
[2022-12-25] MEDS ORDERED: DEXTROSE 50% SYRINGE 50 ML IVP PRN ×2 (07:05)
[2022-12-25 08:17] VITALS: BP 117/55; RESP 18; TEMP 98
[2022-12-25] MEDS: methylPREDNISolone SOD SUCCI 40 MG/ML 1 ML VIAL IV SCH (08:36)
[2022-12-25] MEDS: FERROUS SULFATE 325 MG TAB PO SCH (08:36)
[2022-12-25] MEDS: INSULIN ASPART (NovoLOG) 100 UNIT/ML VIAL SQ SCH ×2 (08:36→12:44)
[2022-12-25] MEDS: MULTIVITAMINS, THERA 1 EACH TAB PO SCH (08:36)
[2022-12-25] MEDS: GLIMEPIRIDE 1 MG TAB PO SCH (08:36)
[2022-12-25] MEDS: guaiFENesin-Coden 100-10MG/5ML 10 ML CUP PO PRN (08:43)
[2022-12-25] MEDS: IPRATROPIUM-ALBUTEROL 3 ML NEB INHALATION SCH ×2 (09:17→12:39)
[2022-12-25 11:16] LABS: African American GFR (CKD) 86.6 (60.0-200.0); Albumin 3.4 g/dL (3.8-4.9); Albumin/Globulin Ratio 1.79 (1.60-3.17); Anion Gap 8.9 mmol/L (10.00-18.00); Blood Urea Nitrogen 23.2 mg/dL (9.0-27.0); Calcium 10.1 mg/dL (8.7-10.3); Carbon Dioxide 27.1 mmol/L (20.0-27.5); Globulin 1.9 g/dL (1.6-3.3); Non-African American GFR(CKD) 74.7 (60.0-200.0); Potassium 5.4 mmol/L (3.5-5.5); Total Bilirubin 0.2 mg/dL (0.30-1.20); Total Protein 5.3 g/dL (6.2-8.2)
[2022-12-25 11:42] LABS: Glucose,Whole Blood 187 mg/dL (70-110)
[2022-12-25 12:15] LABS: HCT 39.6 % (37.2-46.3); HGB 12.3 g/dL (12.0-15.0); MCH 32.4 pg (27.0-32.0); MCHC 31.1 g/dL (32.0-37.0); MCV 104.2 fL (80.0-97.0); Mean Platelet Volume 10.6 fL (9.5-12.2); NRBC Per 100 WBC 0 /100 WBCS (0.0-0.0); Platelet Count 337 X 10*3/uL (140-440); RDW 13.2 % (11.5-14.5); WBC 8.42 X 10*3/uL (4.50-10.00)
[2022-12-25 12:42] VITALS: PULSE 56
[2022-12-25 13:12] LABS: Basophils # (A) 0.01 X 10*3/uL (0.00-0.10); Basophils % (A) 0.1 %; Elliptocytes 2+; Eosinophils # (A) 0.03 X 10*3/uL (0.04-0.35); Eosinophils % (A) 0.4 %; Immature Grans, Automated 4.3 %; Lymphocytes # (A) 1.25 X 10*3/uL (0.90-5.00); Lymphocytes % (A) 14.8 %; Macrocytosis (M) 2+; Monocytes # (A) 0.77 X 10*3/uL (0.20-1.00); Monocytes % (A) 9.1 %; Neutrophils % (A) 71.3 %
--- NOTE | 2022-12-25 14:31 | P.PN ---
Subjective Progress Note Date: 12/25/22 Principal diagnosis: Pneumonia and positive blood culture Patient is a 72-year-old female with a past medical history significant for diabetes mellitus reflux hypertension hyperlipidemia coronary artery disease history of non-Hodgkin lymphoma has been sent from the PCP office for evaluation of increasing shortness of breath and cough, patient did have chest x-ray as well as CT of the chest suggestive of left upper lobe pneumonia. On today's evaluation that is 12/25/2022, the patient continues to be afebrile, the patient is breathing comfortably on room air, patient cough has decreased intensity and mostly dry in nature, no nausea no vomiting no abdominal pain or diarrhea Objective - Vital Signs Vital signs: Vital Signs Temp 98 F 12/25/22 07:44 Pulse 60 12/25/22 09:29 Resp 18 12/25/22 07:44 BP 117/55 12/25/22 07:44 Pulse Ox 95 12/25/22 09:17 FiO2 21 12/25/22 04:58 Intake & Output 12/24/22 12/25/22 12/25/22 18:59 06:59 18:59 Intake Total 360 200 180 Balance 360 200 180 Intake: Intake, IV Titration 200 Amount Ampicillin-Sulbactam 3 gm 200 In Sodium Chloride 0.9% 100 ml @ 200 mls/hr IVPB Q6HR [facility] Rx#:[id number] Oral 360 180 Other: # Voids 5 3 # Bowel Movements 2 - Exam GENERAL DESCRIPTION: An elderly female up in bed in no distress RESPIRATORY SYSTEM: Unlabored breathing , decreased breath sounds at bases HEART: S1 S2 regular rate and rhythm , ABDOMEN: Soft , no tenderness EXTREMITIES: No edema feet - Labs CBC & Chem 7: 12/25/22 07:07 12/25/22 07:07 Labs: Abnormal Lab Results - Last 24 Hours (Table) 12/24/22 12/24/22 12/24/22 Range/Units 04:28 16:55 20:47 Immature Gran # 0.14 H (0.00-0.04) X 10*3/uL Eosinophils # 0 L (0.04-0.35) X 10*3/uL Anion Gap (10.00-18.00) mmol/L BUN/Creatinine Ratio (12.00-20.00) Ratio Glucose (70-110) mg/dL POC Glucose (mg/dL) 241 H 265 H (70-110) mg/dL Total Bilirubin (0.30-1.20) mg/dL AST (13-35) U/L Total Protein (6.2-8.2) g/dL Albumin (3.8-4.9) g/dL 12/25/22 12/25/22 12/25/22 Range/Units 06:16 07:07 11:41 Immature Gran # (0.00-0.04) X 10*3/uL Eosinophils # (0.04-0.35) X 10*3/uL Anion Gap 8.90 L (10.00-18.00) mmol/L BUN/Creatinine Ratio 29.00 H (12.00-20.00) Ratio Glucose 250 H (70-110) mg/dL POC Glucose (mg/dL) 250 H 187 H (70-110) mg/dL Total Bilirubin 0.20 L (0.30-1.20) mg/dL AST 12 L (13-35) U/L Total Protein 5.3 L (6.2-8.2) g/dL Albumin 3.4 L (3.8-4.9) g/dL Microbiology - Last 24 Hours (Table) 12/24/22 04:28 Blood Culture - Preliminary Blood 12/21/22 21:47 Gram Stain - Final Sputum Sputum Culture - Final Marion sp,not albicans/galbr 12/21/22 16:00 Blood Culture Gram Stain - Final Blood Blood Culture - Final Coagulase Negative Staph 12/21/22 16:15 Blood Culture Gram Stain - Final Blood Blood Culture - Final Coagulase Negative Staph Assessment and Plan (1) Pneumonia Status: Acute Code(s): J18.9 - PNEUMONIA, UNSPECIFIED ORGANISM SNOMED Code(s): 054372614 (2) Positive blood culture Status: Acute Code(s): R78.81 - BACTEREMIA SNOMED Code(s): 677483198 Plan: 1patient admitted to the hospital with increasing shortness of breath and cough symptom has been going on for about a week failing outpatient oral antibiotic and steroids in this patient with a chest x-ray and CT did shows left upper lobe consolidation concerning for pneumonia failing outpatient or antibiotic therapy with a question of community-acquired versus aspiration/gram-negative 2- sputum for Gram stain and culture are currently growing Marion which is likely colonizer 3-positive blood culture with staph epi likely skin contamination , blood cultures has been repeated and so far negative, sputum was negative for any resistant pathogen 4patient seemed to have shown clinical improvement on Zosyn followed by Unasyn. 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
--- NOTE | 2022-12-25 23:52 | DS ---
DISCHARGE SUMMARY HOSPITAL COURSE: This is a 72-year-old white female admitted with right upper lobe pneumonia, treated with IV antibiotics for multiple days. Patient slowly improved. She has a history of systolic CHF, COPD, seizures, hypothyroidism, diabetes, treated with IV antibiotics, switched to oral antibiotics at discharge. Cleared by Dr. Medrano for discharge. Her breathing slowly improved. She is 95% on room air on discharge. Pulse is 50s to 60s. Blood pressure is stable. MEDICATIONS: On discharge include, 1. Augmentin 875 q.12 hours. 2. Robitussin A-C 10 mL t.i.d. p.r.n. 3. Zocor 80 mg daily. 4. Synthroid 150 daily. 5. Amaryl 1 mg daily. 6. Jackson 10/325 four to six. 7. Aspirin 81 mg daily. 8. Multivitamin daily. 9. Ferrous sulfate 325 daily. 10.Advair 250/50 one puff b.i.d. 11.Incruse Ellipta 1 puff daily. 12.Keppra 750 b.i.d. 13.Prilosec 40 daily. 14.Accolate 20 b.i.d. 15.Metoprolol succinate 25 daily. 16.Requip 2 mg at night. 17.Entresto 24/26 b.i.d. CONDITION: Stable. PROGNOSIS: Guarded. FOLLOWUP: In the office in a week. MMODL / IJN: [id number] /
--- NOTE | 2022-12-26 11:37 | PN ---
PROGRESS NOTE Acute hypoxic respiratory failure. MMODL / IJN: [id number] /
== END 2022-12-25 13:35 | disposition home or self-care (01) | DRG 193 ==
LOC: EC 12:50 → 4SSUR 15:30
PROVIDERS: ADMIT Family Medicine; ATTEND Family Medicine
DX: J18.9 Pneumonia, unspecified organism (principal); J96.01 Acute respiratory failure with hypoxia; C85.90 Non-Hodgkin lymphoma, unspecified, unspecified site; J44.0 Chronic obstructive pulmonary disease with (acute) lower respiratory infection; I50.22 Chronic systolic (congestive) heart failure; J44.1 Chronic obstructive pulmonary disease with (acute) exacerbation; Z20.822 Contact with and (suspected) exposure to COVID-19; E03.9 Hypothyroidism, unspecified; E11.9 Type 2 diabetes mellitus without complications; E11.42 Type 2 diabetes mellitus with diabetic polyneuropathy; D50.9 Iron deficiency anemia, unspecified; E78.5 Hyperlipidemia, unspecified; I25.10 Atherosclerotic heart disease of native coronary artery without angina pectoris; G25.81 Restless legs syndrome; H91.91 Unspecified hearing loss, right ear; J30.9 Allergic rhinitis, unspecified; H66.92 Otitis media, unspecified, left ear; M54.50 Low back pain, unspecified; G89.29 Other chronic pain; I11.0 Hypertensive heart disease with heart failure; Z79.899 Other long term (current) drug therapy; Z88.6 Allergy status to analgesic agent; Z88.1 Allergy status to other antibiotic agents; Z88.8 Allergy status to other drugs, medicaments and biological substances; Z95.1 Presence of aortocoronary bypass graft; Z79.82 Long term (current) use of aspirin; Z79.84 Long term (current) use of oral hypoglycemic drugs; Z79.890 Hormone replacement therapy; Z87.440 Personal history of urinary (tract) infections; Z87.891 Personal history of nicotine dependence
CPT/HCPCS: 36415; 71046; 71250; 80053; 83605; 83735; 83880; 84484; 85025; 85610; 85730; 86140; 87040; 87070; 87205; 87636; 93005; 94640; 94660; 94760; 96365; 96366; 96368; 99285

== ENCOUNTER → 2022-12-28 | Outpatient (CLI) | payer MEDICARE, OTHER ==
[2022-12-28 16:03] LABS: African American GFR (CKD) 66.1 (60.0-200.0); Anion Gap 8.3 mmol/L (10.00-18.00); BUN/Creat Ratio 17.7 Ratio (12.00-20.00); Blood Urea Nitrogen 17.7 mg/dL (9.0-27.0); Calcium 9.2 mg/dL (8.7-10.3); Carbon Dioxide 29.7 mmol/L (20.0-27.5); Magnesium 2.2 mg/dL (1.5-2.4); Potassium 4.9 mmol/L (3.5-5.5)
== END | disposition home or self-care (01) ==
LOC: LABWHC1 09:46
PROVIDERS: ATTEND Nurse Practitioner Adult Health
DX: I10 Essential (primary) hypertension (principal)
CPT/HCPCS: 36415; 80048; 83735

== ENCOUNTER → 2023-01-28 | Outpatient (CLI) | payer MEDICARE, OTHER ==
--- NOTE | 2023-01-28 12:30 | CT ---
EXAMINATION TYPE: CT sinus wo con CT DLP: 416.3 mGycm, Automated exposure control for dose reduction was used. DATE OF EXAM: 01/28/2023 12:23 PM COMPARISON: CT brain 12/15/2022, CT IAC 01/28/2023. CLINICAL INDICATION:Female, 72 years old with history of H65.23; J32.0; PHH, headache CONTRAST: None. TECHNIQUE: Multiple thin axial images were obtained through the paranasal sinuses without the use of IV contrast. Additional coronal and sagittal reformatted images were submitted for evaluation. FINDINGS: Frontal sinuses: Normally developed and aerated. Frontal Recess: Clear Maxillary Sinuses: Normally developed and aerated. Maxillary Infundibula(OMC): Clear, . Ethmoid sinuses: Normally developed and aerated. Ethmoidal notch: Protected and abutting the lateral lamina. Sphenoid sinuses: Normally developed and aerated. There is sellar sphenoid sinus pneumatization witho ut evidence of dehiscence. No dehiscence of carotid canal. No evidence of optic nerve dehiscence wit hin the sphenoid sinus. Sphenoethmoidal recesses: Clear. Nasal septum: Within normal limits.. Nasal Turbinates: Within normal limits. Mastoid air cells & middle ears: Please refer to dedicated CT IAC for findings. Modified Soft tissues & Brain: Partially seen without gross abnormality. Bilateral aphakia. Other: Cribriform plate demonstrates asymmetric Keros classification type 3 cribriform plate on the right an d type II on the left. No evidence of bony dehiscence of skull base. Lamina papyracea is intact without evidence of remote orbital fracture or orbital prolapse into the e thmoid sinus. Pneumatization of the marla iván. IMPRESSION: 1. No significant mucosal sinus disease. 2. The ostiomeatal units, frontonasal and sphenoethmoidal recesses are clear.
--- NOTE | 2023-01-28 12:40 | CT ---
EXAMINATION TYPE: CT iac wo con CT DLP: 142.7 mGycm, Automated exposure control for dose reduction was used. DATE OF EXAM: 01/28/2023 12:23 PM INDICATION: Patient age:Female; 72 years old; Reason for study: H65.23; J32.0; [facility]. COMPARISON: CT sinus 01/28/2023, CT brain 12/15/2022, CT IAC 05/22/2026. TECHNIQUE: Multiple thin axial images were obtained through the temporal bones and internal auditory canals. Additional coronal reformatted images were obtained. No IV contrast was utilized. FINDINGS: Right Temporal Bone: External Ear: The external auditory canal is unremarkable, The tympanic membrane is present and unrem arkable. Middle Ear: The ossicles demonstrate a normal appearance. Similar soft tissue density surrounding t he middle ear ossicles. Scutum is preserved. There is no evidence of osseous erosion and the tegmen t ympani is intact. Inner Ear: Cochlea and vestibule are unremarkable. There is again suspected dehiscence of the superi or aspect of the semicircular canal. No evidence of carotid canal dehiscence. Two and a half turns o f the cochlea are identified. The vestibular aqueduct is not enlarged. Mastoid Air Cells: Postsurgical changes demonstrated. No opacification. Internal Auditory Canal: The internal auditory canal is unremarkable. Left Temporal Bone: External Ear: The external auditory canal is unremarkable, The tympanic membrane is present and unrem arkable. Middle Ear: The ossicles demonstrate a normal appearance. Similar soft tissue density surrounding t he middle ear ossicles. Scutum is preserved. There is no evidence of osseous erosion and the tegmen t ympani is intact. Inner Ear: Cochlea and vestibule are unremarkable. There is again suspected dehiscence of the superi or aspect of the semicircular canal. No evidence of carotid canal dehiscence. Two and a half turns of the cochlea are identified. The vestibular aqueduct is not enlarged. Mastoid Air Cells: Partial opacification identified. The aditus ad antrum is clear. Internal Auditory Canal: The internal auditory canal is unremarkable. IMPRESSION: Chronic left mastoiditis. Soft tissue density surrounding both middle ear ossicles is redemonstrated with the scutum preserved suggestive of infection. Post surgical changes of the right mastoid. 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 Clinical correlation advised.
== END | disposition home or self-care (01) ==
LOC: RADCTMAIN 11:43
PROVIDERS: ATTEND Otolaryngology
DX: H65.23 Chronic serous otitis media, bilateral (principal); J32.0 Chronic maxillary sinusitis; H70.12 Chronic mastoiditis, left ear
CPT/HCPCS: 70480; 70486

== ENCOUNTER 2023-02-02 08:20 | Emergency (ER) | payer MEDICARE, OTHER ==
[2023-02-02] MEDS ORDERED: SODIUM CHLORIDE 0.9% 500 ML 500 ML IV STA (08:53)
--- NOTE | 2023-02-02 09:06 | ED ---
General Adult HPI - General Chief complaint: Arrhythmia/Palpitations Stated complaint: chest pain Time Seen by Provider: 02/02/23 08:28 Source: patient, RN notes reviewed, old records reviewed Mode of arrival: wheelchair Limitations: no limitations - History of Present Illness Initial comments: 72-year-old female presenting for evaluation of palpitations, racing heart sensation. Patient states her symptoms have been intermittent over the past 48 hours. She's also felt somewhat lightheaded. No central chest pain. No vomiting. No diaphoresis. Patient states she has been eating and drinking well. No fever. - Related Data Home Medications Medication Instructions Recorded Confirmed Simvastatin [Zocor] 80 mg PO HS 03/21/14 12/21/22 Ergocalciferol [Vitamin D2 50,000 unit PO MO 10/09/14 12/21/22 (DRISDOL)] Levothyroxine Sodium [Synthroid] 150 mcg PO DAILY 10/09/14 12/21/22 Glimepiride [Amaryl] 1 mg PO DAILY 10/08/15 12/21/22 HYDROcodone/APAP 10-325MG [[place] 1 tab PO Q4-6H PRN 08/22/18 12/21/22 10-325] Multivitamins, Thera [Multivitamin 1 tab PO DAILY 07/04/21 12/21/22 (formulary)] Ferrous Sulfate [Iron (65 MG 325 mg PO DAILY 12/28/21 12/21/22 Elemental)] levETIRAcetam [Keppra] 750 mg PO BID 12/28/21 12/21/22 Fluticasone Propion/Salmeterol 1 puff INHALATION RT-BID 12/02/22 12/21/22 [Advair 250-50 Diskus] Omeprazole [PriLOSEC] 40 mg PO DAILY 12/02/22 12/21/22 Zafirlukast [Accolate] 20 mg PO BID 12/02/22 12/21/22 Metoprolol Succinate [Metoprolol 25 mg PO HS 12/21/22 12/21/22 Succinate ER] Sacubitril/Valsartan [Entresto 24 1 tab PO BID@0700,1400 12/21/22 12/21/22 mg-26 mg Tablet] Umeclidinium [place] [Incruse 1 puff INHALATION RT-DAILY 12/21/22 12/21/22 Ellipta] rOPINIRole HCL [Requip] 2 mg PO HS 12/21/22 12/21/22 Previous Rx's Medication Instructions Recorded Aspirin EC [Ecotrin Low Dose] 81 mg PO DAILY #0 09/13/19 Amoxic-Pot Clav 875-125Mg 1 tab PO Q12HR 10 Days #20 tab 12/25/22 [Augmentin 875-125] guaiFENesin-Coden 100-10MG/5ML 10 ml PO TID PRN ml 12/25/22 [Robitussin AC] Allergies Allergy/AdvReac Type Severity Reaction Status Date / Time allopurinol Allergy Itching Verified 02/02/23 08:30 cephalexin monohydrate Allergy Itching Verified 02/02/23 08:30 [From Keflex] clindamycin Allergy Itching Verified 02/02/23 08:30 NSAIDS (Non-Steroidal AdvReac Unknown STATES NO Verified 02/02/23 08:30 Anti-Inflamma NSAIDS DUE TO GASTRIC BYPASS ciprofloxacin [From Cipro] AdvReac Itching Verified 02/02/23 08:30 doxycycline AdvReac Itching Verified 02/02/23 08:30 Review of Systems ROS Statement: Those systems with pertinent positive or pertinent negative responses have been documented in the HPI. ROS Other: All systems not noted in ROS Statement are negative. 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, hydrocephalus/had brain surgery for this then another surgery d/t "blood at surgical site and they put a tube in there" at [facility], ischemic heart disease, NIDDM, Occasional neuropathy bilateral hands. deaf/chronic otitis media L ear, [place] R ear, chronic low back/neck pain, vertigo, L hand NT R/T hx L wrist fx, RLS, varicosities, possible IBS/colitis/crohn's per pt in the past, uses C-PAP, hypothyroid, sinus allergies, eczema, iron def. anemia with iron infusion, past UTI with sepsis, recent stress test, "slow heart rate" History of Any Multi-Drug Resistant Organisms: None Reported Past Surgical History: Appendectomy, Bariatric Surgery, Bowel Resection, Cho lecystectomy, Coronary Bypass/CABG, Heart Catheterization, Hernia Repair, Joint Replacement, Orthopedic Surgery, Tubal Ligation Additional Past Surgical History / Comment(s): Brain surgery at [facility] for hydrocephalus then d/t blood at surgical site/drain placed per patient, 09/29/18 removal R ear ventilation tube, R tympanomastoidectomy, CABG x1 vessel (1992), bilateral shoulder surgery/ rt shoulder rotator cuff, bilateral carpal tunnel releases, L wrist surgery d/t injury, total L knee, total R hip, lap banding, gastric bypass w/ lap band removal 2013, colonoscopy, R colectomy d/t mass, EGD, umbilical hernia repair, pain clinic procedures Past Anesthesia/Blood Transfusion Reactions: Motion Sickness Additional Past Anesthesia/Blood Transfusion Reaction / Comment(s): VERTIGO Past Psychological History: No Psychological Hx Reported Smoking Status: Former smoker Past Alcohol Use History: None Reported Past Drug Use History: None Reported - Past Family History Mother Additional Family Medical History / Comment(s): Pt states her mother never went to the doctor so she does not know of any medical problems. Mother lived to be 87yrs old. Father Additional Family Medical History / Comment(s): Father at the age of 67yrs, pt does not know cause of . Sister(s) Family Medical History: Cancer Additional Family Medical History / Comment(s): LUNG CA General Exam Limitations: no limitations General appearance: alert, in no apparent distress Head exam: Present: atraumatic, normocephalic Eye exam: Present: normal appearance, PERRL ENT exam: Present: normal exam Neck exam: Present: normal inspection. Absent: tenderness, meningismus Respiratory exam: Present: normal lung sounds bilaterally. Absent: respiratory distress Cardiovascular Exam: Present: regular rate, irregular rhythm GI/Abdominal exam: Present: soft. Absent: distended, tenderness, guarding Extremities exam: Present: normal inspection, normal capillary refill. Absent: pedal edema Neurological exam: Present: alert, oriented X3 Psychiatric exam: Present: normal affect, normal mood Course Vital Signs 02/02/23 02/02/23 08:30 09:00 Temperature 98 F Pulse Rate 68 62 Respiratory 18 13 Rate Blood Pressure 125/82 128/66 O2 Sat by Pulse 97 94 L Oximetry Medical Decision Making - Medical Decision Making Was pt. sent in by a medical professional or institution ([facility] Orellana, [employer], urgent care, hospital, or [facility]...) When possible be specific @ -No Did you speak to anyone other than the patient for history (EMS, parent, family, police, friend...)? What history was obtained from this source @ -No Did you review nursing and triage notes (agree or disagree)? Why? @ -I reviewed and agree with nursing and triage notes Were old charts reviewed (outside hosp., previous admission, EMS record, old EKG, old radiological studies, urgent care reports/EKG's, [facility] records)? Report findings @ -[Previous EKGs Differential Diagnosis (chest pain, altered mental status, abdominal pain women, abdominal pain men, vaginal bleeding, weakness, fever, dyspnea, syncope, headache, dizziness, GI bleed, back pain, seizure, CVA, palpatations, mental health, musculoskeletal)? @ -[Differential Palpitations Ventricular arrhythmias, atrial arrhythmias, myocardial infarction, anemia, thyrotoxicosis, electrolyte imbalance, hypokalemia, pulmonary embolism, pulmonary disease, drugs, alcohol, anxiety, stress.... This is not meant to be an all-inclusive list. EKG interpreted by me (3pts min.). @ -Sinus rhythm with sinus arrhythmia rate of 71, HI interval 177, QRS duration 111 QTC 44, no ST segment elevation. X-rays interpreted by me (1pt min.). @ -Negative for focal pneumonia or acute findings CT interpreted by me (1pt min.). @ -None done U/S interpreted by me (1pt. min.). @ -None done What testing was considered but not performed or refused? (CT, X-rays, U/S, labs)? Why? @ -None What meds were considered but not given or refused? Why? @ -None Did you discuss the management of the patient with other professionals ([facility] i.e. EMILIA Orellana, [employer], lab, RT, psych nurse, hospital social worker, it sales representative, teacher, community service patrol officer, case specialist)? Give summary @ -No Was smoking cessation discussed for >3mins.? @ -No Was critical care preformed (if so, how long)? @ -No Were there social determinants of health that impacted care today? How? (Homelessness, low income, unemployed, alcoholism, drug addiction, transportatio n, low edu. Level, literacy, decrease access to med. care, prison, rehab)? @ -No Was there de-escalation of care discussed even if they declined (Discuss DNR or withdrawal of care, Hospice)? DNR status @ -No What co-morbidities impacted this encounter? (DM, HTN, Smoking, COPD, CAD, Cancer, CVA, ARF, Chemo, Hep., AIDS, mental health diagnosis, sleep apnea, morbid obesity)? @ -[CAD, diabetes, hypertension Was patient admitted / discharged? Hospital course, mention meds given and route, prescriptions, significant lab abnormalities, going to OR and other pertinent info. @ -[72-year-old female presenting with palpitations, lightheadedness. Patient is in sinus rhythm with sinus arrhythmia, no ST segment elevation. Chest x-ray is clear. She has a normal CBC, normal CMP, negative troponin. Her symptoms have been intermittent and she does admit that she's had them for some time in the past. She follows with cardiology and has an appointment coming up. She f eels better after normal saline bolus. She's given strict return parameters and will follow-up with her primary care physician. Undiagnosed new problem with uncertain prognosis? @ -No Drug Therapy requiring intensive monitoring for toxicity (Heparin, Nitro, Insulin, Cardizem)? @ -No Were any procedures done? @ -No Diagnosis/symptom? @ -[Palpitations Acute, or Chronic, or Acute on Chronic? @ -Acute on chronic Uncomplicated (without systemic symptoms) or Complicated (systemic symptoms)? @ -default Side effects of treatment? @ -No Exacerbation, Progression, or Severe Exacerbation? @ -No Poses a threat to life or bodily function? How? (Chest pain, USA, DC, pneumonia, PE, COPD, DKA, ARF, appy, cholecystitis, CVA, Diverticulitis, Homicidal, Suicidal, threat to staff... and all critical care pts) @ -[Low risk, risk of non-captured cardiac dysrhythmia. - Lab Data Result diagrams: 02/02/23 09:00 02/02/23 09:00 Lab Results 06/20/23 06/20/23 06/20/23 Range/Units 09:00 09:00 09:00 WBC 5.9 (3.8-10.6) k/uL RBC 4.01 (3.80-5.40) m/uL Hgb 13.5 (11.4-16.0) gm/dL Hct 41.4 (34.0-46.0) % MCV 103.3 H (80.0-100.0) fL MCH 33.7 (25.0-35.0) pg MCHC 32.6 (31.0-37.0) g/dL RDW 13.9 (11.5-15.5) % Plt Count 245 (150-450) k/uL MPV 7.4 Neutrophils % 61 % Lymphocytes % 27 % Monocytes % 8 % Eosinophils % 2 % Basophils % 0 % Neutrophils # 3.6 (1.3-7.7) k/uL Lymphocytes # 1.6 (1.0-4.8) k/uL Monocytes # 0.5 (0-1.0) k/uL Eosinophils # 0.1 (0-0.7) k/uL Basophils # 0.0 (0-0.2) k/uL Macrocytosis Slight PT 10.2 (9.0-12.0) sec INR 1.0 (<1.2) APTT 21.1 L (22.0-30.0) sec Sodium 142 (137-145) mmol/L Potassium 3.9 (3.5-5.1) mmol/L Chloride 109 H (98-107) mmol/L Carbon Dioxide 26 (22-30) mmol/L Anion Gap 7 mmol/L BUN 20 H (7-17) mg/dL Creatinine 0.77 (0.52-1.04) mg/dL Est GFR (CKD-EPI)AfAm >90 (>60 ml/min/1.73 sqM) Est GFR (CKD-EPI)NonAf 78 (>60 ml/min/1.73 sqM) Glucose 95 (74-99) mg/dL Calcium 9.1 (8.4-10.2) mg/dL Magnesium 1.9 (1.6-2.3) mg/dL Total Bilirubin 0.6 (0.2-1.3) mg/dL AST 25 (14-36) U/L ALT 16 (4-34) U/L Alkaline Phosphatase 68 (38-126) U/L Troponin I (0.000-0.034) ng/mL Total Protein 6.1 L (6.3-8.2) g/dL Albumin 3.8 (3.5-5.0) g/dL 02/02/23 Range/Units 09:00 WBC (3.8-10.6) k/uL RBC (3.80-5.40) m/uL Hgb (11.4-16.0) gm/dL Hct (34.0-46.0) % MCV (80.0-100.0) fL MCH (25.0-35.0) pg MCHC (31.0-37.0) g/dL RDW (11.5-15.5) % Plt Count (150-450) k/uL MPV Neutrophils % % Lymphocytes % % Monocytes % % Eosinophils % % Basophils % % Neutrophils # (1.3-7.7) k/uL Lymphocytes # (1.0-4.8) k/uL Monocytes # (0-1.0) k/uL Eosinophils # (0-0.7) k/uL Basophils # (0-0.2) k/uL Macrocytosis PT (9.0-12.0) sec INR (<1.2) APTT (22.0-30.0) sec Sodium (137-145) mmol/L Potassium (3.5-5.1) mmol/L Chloride (98-107) mmol/L Carbon Dioxide (22-30) mmol/L Anion Gap mmol/L BUN (7-17) mg/dL Creatinine (0.52-1.04) mg/dL Est GFR (CKD-EPI)AfAm (>60 ml/min/1.73 sqM) Est GFR (CKD-EPI)NonAf (>60 ml/min/1.73 sqM) Glucose (74-99) mg/dL Calcium (8.4-10.2) mg/dL Magnesium (1.6-2.3) mg/dL Total Bilirubin (0.2-1.3) mg/dL AST (14-36) U/L ALT (4-34) U/L Alkaline Phosphatase (38-126) U/L Troponin I 0.032 (0.000-0.034) ng/mL Total Protein (6.3-8.2) g/dL Albumin (3.5-5.0) g/dL Disposition Clinical Impression: Dizziness, Palpitations Disposition: HOME SELF-CARE Condition: Fair Instructions (If sedation given, give patient instructions): Heart Palpitations (ED) Is patient prescribed a controlled substance at d/c from ED?: No Referrals: Padilla Santiago MD [Primary Care Provider] - 1-2 days Time of Disposition: 11:15
[2023-02-02 10:24] LABS: Basophils % (A) 0 %; Eosinophils # (A) 0.1 k/uL (0-0.7); Eosinophils % (A) 2 %; HCT 41.4 % (34.0-46.0); HGB 13.5 gm/dL (11.4-16.0); Lymphocytes # (A) 1.6 k/uL (1.0-4.8); Lymphocytes % (A) 27 %; MCH 33.7 pg (25.0-35.0); MCHC 32.6 g/dL (31.0-37.0); MCV 103.3 fL (80.0-100.0); Macrocytosis Slight; Mean Platelet Volume 7.4; Monocytes # (A) 0.5 k/uL (0-1.0); Monocytes % (A) 8 %; Neutrophils # (A) 3.6 k/uL (1.3-7.7); Neutrophils % (A) 61 %; Platelet Count 245 k/uL (150-450); RBC 4.01 m/uL (3.80-5.40); RDW 13.9 % (11.5-15.5); WBC 5.9 k/uL (3.8-10.6)
--- NOTE | 2023-02-02 10:29 | XR ---
EXAMINATION TYPE: XR chest 2V DATE OF EXAM: 02/02/2023 COMPARISON: 12/24/2022 TECHNIQUE: PA and lateral views submitted. HISTORY: Dysrhythmia FINDINGS: The lungs are clear and there is no pneumothorax, pleural effusion, or focal pneumonia. Heart size normal and no overt failure. Osseous structures demonstrate hypertrophic and degenerative changes of the spine. Postoperative changes. Surgical changes right shoulder with arthropathy AC joint. Surgical clips in the abdomen. IMPRESSION: 1. No acute process.
[2023-02-02 10:40] LABS: Prothrombin Time 10.2 sec (9.0-12.0)
[2023-02-02 10:44] LABS: ALT 16 U/L (4-34); AST 25 U/L (14-36); African American GFR (CKD) >90 (>60 ml/min/1.73 sqM); Albumin 3.8 g/dL (3.5-5.0); Alkaline Phosphatase 68 U/L (38-126); Anion Gap 7 mmol/L; Blood Urea Nitrogen 20 mg/dL (7-17); Calcium 9.1 mg/dL (8.4-10.2); Carbon Dioxide 26 mmol/L (22-30); Chloride 109 mmol/L (98-107); Glucose 95 mg/dL (74-99); Magnesium 1.9 mg/dL (1.6-2.3); Non-African American GFR(CKD) 78 (>60 ml/min/1.73 sqM); Partial Thromboplastin Time 21.1 sec (22.0-30.0); Potassium 3.9 mmol/L (3.5-5.1); Sodium 142 mmol/L (137-145); Total Bilirubin 0.6 mg/dL (0.2-1.3); Total Protein 6.1 g/dL (6.3-8.2)
[2023-02-02 11:27] VITALS: BP 120/57; PULSE 69; RESP 18; TEMP 98.6
== END 2023-02-02 11:35 | disposition home or self-care (01) ==
LOC: EC 08:20
DX: R42 Dizziness and giddiness (principal); R00.2 Palpitations; J44.9 Chronic obstructive pulmonary disease, unspecified; I25.10 Atherosclerotic heart disease of native coronary artery without angina pectoris; E11.9 Type 2 diabetes mellitus without complications; K21.9 Gastro-esophageal reflux disease without esophagitis; E78.5 Hyperlipidemia, unspecified; I10 Essential (primary) hypertension; M19.90 Unspecified osteoarthritis, unspecified site; G47.30 Sleep apnea, unspecified; E07.9 Disorder of thyroid, unspecified; Z87.891 Personal history of nicotine dependence; Z79.890 Hormone replacement therapy; Z79.51 Long term (current) use of inhaled steroids; Z79.1 Long term (current) use of non-steroidal anti-inflammatories (NSAID); Z79.899 Other long term (current) drug therapy; Z88.6 Allergy status to analgesic agent; Z88.8 Allergy status to other drugs, medicaments and biological substances; Z79.84 Long term (current) use of oral hypoglycemic drugs; Z88.1 Allergy status to other antibiotic agents
CPT/HCPCS: 36415; 71046; 80053; 83735; 84484; 85025; 85610; 85730; 93005; 99285

== ENCOUNTER → 2023-11-17 | Outpatient (CLI) | payer MEDICARE, OTHER ==
--- NOTE | 2023-11-17 14:19 | CT ---
EXAMINATION TYPE: CT iac wo con DATE OF EXAM: 11/17/2023 COMPARISON: 01/28/2023 HISTORY: left ear otitis CT DLP: 144.2mGycm Automated exposure control for dose reduction was used. FINDINGS: There is evidence of bilateral mastoidectomy with changes of chronic mastoiditis present. Again noted is soft tissue surrounding the ossicular chains bilaterally. 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 There is thickening of the bila teral tympanic membranes with postoperative changes noted about the left tympanic membrane. External auditory canals appear to be within normal limits and symmetric. Internal auditory canals appear chelsea sly unremarkable. IMPRESSION: 1. Correlate for bilateral cholesteatoma. 2. Suspect bilateral superior semicircular canal dehiscent syndrome. 3. Changes of bilateral mastoidectomy.
== END | disposition home or self-care (01) ==
LOC: RADCTMAIN 12:28
PROVIDERS: ATTEND Otolaryngology
DX: H71.93 Unspecified cholesteatoma, bilateral (principal); H95.193 Other disorders following mastoidectomy, bilateral ears
CPT/HCPCS: 70480

== ENCOUNTER 2023-12-04 19:50 | Emergency (ER) | payer MEDICARE, OTHER ==
--- NOTE | 2023-12-04 20:16 | ED ---
Fall HPI - General Chief Complaint: Fall Stated Complaint: Fall- head injury Time Seen by Provider: 12/04/23 19:57 Source: patient Mode of arrival: ambulatory - History of Present Illness Initial Comments: 73-year-old female presenting status post head injury. Patient is on Eliquis and baby aspirin. Patient reports today, was in the kitchen when she slipped on dog urine causing her to fall backwards and hit the back of her head on her stove. There is no LOC at this time. Patient reports that she did hurt her hip a little bit during this however reports that she is not having significant pain of it. States that she has been ambulatory with no difficulty since then. No other injuries at this time. No dizziness, chest pain, shortness of breath preceding the fall. No other complaints at this time. - Related Data Home Medications Medication Instructions Recorded Confirmed Simvastatin [Zocor] 80 mg PO HS 03/21/14 05/03/23 Ergocalciferol [Vitamin D2 1,250 mcg PO MO 10/09/14 05/03/23 (DRISDOL)] Levothyroxine Sodium [Synthroid] 150 mcg PO DAILY 10/09/14 05/03/23 Glimepiride [Amaryl] 1 mg PO DAILY 10/08/15 05/03/23 HYDROcodone/APAP 10-325MG [Ideal 1 tab PO Q4H PRN 08/22/18 05/03/23 10-325] Multivitamins, Thera [Multivitamin 1 tab PO DAILY 07/04/21 05/03/23 (formulary)] Ferrous Sulfate [Iron (65 MG 325 mg PO DAILY 12/28/21 05/03/23 Elemental)] levETIRAcetam [Keppra] 750 mg PO BID 12/28/21 05/03/23 Omeprazole [PriLOSEC] 40 mg PO DAILY 12/02/22 05/03/23 Zafirlukast [Accolate] 20 mg PO BID 12/02/22 05/03/23 rOPINIRole HCL [Requip] 2 mg PO HS 12/21/22 05/03/23 Fluticasone Nasal Odin [Flonase 2 spr EA NOSTRIL DAILY 02/02/23 05/03/23 Nasal Odin] Meclizine [Antivert] 25 mg PO DAILY PRN 02/02/23 05/03/23 Melatonin 3 mg PO HS PRN 02/02/23 05/03/23 Sacubitril/Valsartan [Entresto 49 1 tab PO BID@0700,1400 03/06/23 05/03/23 mg-51 mg Tablet] Apixaban [Eliquis] 5 mg PO BID 05/03/23 05/03/23 Azelastine HCl [Astepro] 2 spr NASAL BID PRN 05/03/23 05/03/23 Diphenox-Atrop 2.5-0.025 mg 1 tab PO BID 05/03/23 05/03/23 [Lomotil] Previous Rx's Medication Instructions Recorded Aspirin EC [Ecotrin Low Dose] 81 mg PO DAILY #0 09/13/19 guaiFENesin-Coden 100-10MG/5ML 10 ml PO TID PRN ml 12/25/22 [Robitussin AC] Budesonide [Pulmicort] 0.5 mg INHALATION RT-BID 30 Days 03/08/23 #60 ml Ipratropium-Albuterol Nebulize 3 ml INHALATION RT-QID 30 Days 03/08/23 [Duoneb 0.5 mg-3 mg/3 ml Soln] #120 each Metoprolol Succinate (ER) [Toprol 25 mg PO DAILY 90 Days #90 tab 05/07/23 XL] Allergies Allergy/AdvReac Type Severity Reaction Status Date / Time NSAIDS (Non-Steroidal AdvReac Unknown STATES NO Verified 12/04/23 19:54 Anti-Inflamma NSAIDS DUE TO GASTRIC BYPASS allopurinol AdvReac Itching Verified 12/04/23 19:54 cephalexin monohydrate AdvReac Itching Verified 12/04/23 19:54 [From Keflex] ciprofloxacin [From Cipro] AdvReac Itching Verified 12/04/23 19:54 clindamycin AdvReac Itching Verified 12/04/23 19:54 doxycycline AdvReac Itching Verified 12/04/23 19:54 Review of Systems ROS Statement: Those systems with pertinent positive or pertinent negative responses have been documented in the HPI. ROS Other: All systems not noted in ROS Statement are negative. 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 deaf/chronic otitis media L ear, FALSE PASS R ear, chronic low back/neck pain, vertigo, L hand NT R/T hx L wrist fx, RLS, varicosities, possible IBS/colitis/crohn's per pt in the past, uses C-PAP, hypothyroid, sinus allergies, eczema, iron def. anemia with iron infusion, past UTI with sepsis, recent stress test, "slow heart rate" History of Any Multi-Drug Resistant Organisms: None Reported Past Surgical History: Appendectomy, Bariatric Surgery, Bowel Resection, Cholecystectomy, Coronary Bypass/CABG, Heart Catheterization, Hernia Repair, Joint Replacement, Orthopedic Surgery, Tubal Ligation Additional Past Surgical History / Comment(s): Brain surgery at [facility] for hydrocephalus then d/t blood at surgical site/drain placed per patient, 09/29/18 removal R ear ventilation tube, R tympanomastoidectomy, CABG x1 vessel (1992), bilateral shoulder surgery/ rt shoulder rotator cuff, bilateral carpal tunnel releases, L wrist surgery d/t injury, total L knee, total R hip, lap banding, gastric bypass w/ lap band removal 2013, colonoscopy, R colectomy d/t mass, EGD, umbilical hernia repair, pain clinic procedures Past Anesthesia/Blood Transfusion Reactions: Motion Sickness Additional Past Anesthesia/Blood Transfusion Reaction / Comment(s): VERTIGO Past Psychological History: No Psychological Hx Reported Smoking Status: Former smoker Past Alcohol Use History: None Reported Past Drug Use History: None Reported - Past Family History Mother Additional Family Medical History / Comment(s): Pt states her mother never went to the doctor so she does not know of any medical problems. Mother lived to be 87yrs old. Father Additional Family Medical History / Comment(s): Father at the age of 67yrs, pt does not know cause of . Sister(s) Family Medical History: Cancer Additional Family Medical History / Comment(s): LUNG CA General Exam Limitations: no limitations General appearance: alert, in no apparent distress Head exam: Present: other (No hutchinson signs or raccoon's eyes.) Eye exam: Present: PERRL, EOMI Neck exam: Present: normal inspection Respiratory exam: Present: normal lung sounds bilaterally Cardiovascular Exam: Present: regular rate Extremities exam: Present: other (Ambulates without significant difficulty. Full active range of motion of bilateral upper extremities.) Back exam: Present: other (No midline spinal tenderness to palpation.) Neurological exam: Present: alert, oriented X3 Skin exam: Present: warm, dry Course Vital Signs 12/04/23 19:51 Temperature 98.3 F Pulse Rate 80 Respiratory 18 Rate Blood Pressure 157/58 O2 Sat by Pulse 96 Oximetry Medical Decision Making - Medical Decision Making Was pt. sent in by a medical professional or institution (, PA, [employer], urgent care, hospital, or intermediate...) When possible be specific @ -No Did you speak to anyone other than the patient for history (EMS, parent, family, police, friend...)? What history was obtained from this source @ -No Did you review nursing and triage notes (agree or disagree)? Why? @ -I reviewed and agree with nursing and triage notes Were old charts reviewed (outside hosp., previous admission, EMS record, old EKG, old radiological studies, urgent care reports/EKG's, intermediate records)? Report findings @ -No old charts were reviewed Differential Diagnosis (chest pain, altered mental status, abdominal pain women, abdominal pain men, vaginal bleeding, weakness, fever, dyspnea, syncope, headache, dizziness, GI bleed, back pain, seizure, CVA, palpatations, mental health, musculoskeletal)? @ -Differential Musculoskeletal Muscular strain, contusion, ligament sprain, fracture, arthritis, septic arthritis, bursitis, cellulitis, muscle spasm, nerve compression, DVT, arterial occlusion, herpes zoster, electrolyte abnormality, tumor.... This is not meant to be in all inclusive list EKG interpreted by me (3pts min.). @ -As above X-rays interpreted by me (1pt min.). @ -None done CT interpreted by me (1pt min.). @ -CT brain and cervical spine interpreted me which revealed no evidence of acute finding. U/S interpreted by me (1pt. min.). @ -None done What testing was considered but not performed or refused? (CT, X-rays, U/S, labs)? Why? @ -None What meds were considered but not given or refused? Why? @ -None Did you discuss the management of the patient with other professionals (professionals i.e. , PA, [employer], lab, RT, psych nurse, social contact worker, duck farmer, teacher, fire officer, parking lot manager)? Give summary @ -No Was smoking cessation discussed for >3mins.? @ -No Was critical care preformed (if so, how long)? @ -No Were there social determinants of health that impacted care today? How? (Homelessness, low income, unemployed, alcoholism, drug addiction, transportation, low edu. Level, literacy, decrease access to med. care, usp, rehab)? @ -No Was there de-escalation of care discussed even if they declined (Discuss DNR or withdrawal of care, Hospice)? DNR status @ -No What co-morbidities impacted this encounter? (DM, HTN, Smoking, COPD, CAD, Cancer, CVA, ARF, Chemo, Hep., AIDS, mental health diagnosis, sleep apnea, morbid obesity)? @ -None Was patient admitted / discharged? Hospital course, mention meds given and route, prescriptions, significant lab abnormalities, going to OR and other pertinent info. @ -Discharge 73-year-old female presenting status post mechanical fall hitting the back of her head on her stove. On examination no hutchinson signs or raccoon's eyes. No large laceration or abrasions. Moves bilateral upper lower extremities without difficulty and ambulates without difficulty. No midline spinal tenderness to palpation. CT brain and cervical spine revealed no evidence of acute finding. Discharged home in stable condition and advised follow-up with her primary care provider. Undiagnosed new problem with uncertain prognosis? @ -No Drug Therapy requiring intensive monitoring for toxicity (Heparin, Nitro, Insulin, Cardizem)? @ -No Were any procedures done? @ -No Diagnosis/symptom? @ -Mechanical fall, head injury Acute, or Chronic, or Acute on Chronic? @ -Acute Uncomplicated (without systemic symptoms) or Complicated (systemic symptoms)? @ -Uncomplicated Side effects of treatment? @ -No Exacerbation, Progression, or Severe Exacerbation? @ -No Poses a threat to life or bodily function? How? (Chest pain, USA, AR, pneumonia, PE, COPD, DKA, ARF, appy, cholecystitis, CVA, Diverticulitis, Homicidal, Suicidal, threat to staff... and all critical care pts) @ -No Disposition Clinical Impression: Fall Disposition: HOME SELF-CARE Condition: Good Additional Instructions: Please return to the Emergency Department if symptoms worsen or any other concerns. Please follow-up with primary care provider. Is patient prescribed a controlled substance at d/c from ED?: No Referrals: Padilla Santiago MD [Primary Care Provider] - 1-2 days Time of Disposition: 23:01
[2023-12-04 20:18] VITALS: RESP 18
--- NOTE | 2023-12-04 22:23 | CT ---
EXAMINATION TYPE: CT brain cspine wo con CT DLP: 1560.5 mGycm, Automated exposure control for dose reduction was used. DATE OF EXAM: 12/04/2023 9:17 PM COMPARISON: MRI brain 05/04/2023, CT IAC 11/17/2023 CLINICAL INDICATION:Female, 73 years old with history of s/p head injury on thinners; fall TECHNIQUE: Brain: Multiple axial CT images of the brain were obtained without IV contrast. Cspine: Axial CT images from the skull base to the inferior aspect of T2 we obtained without intraven ous contrast. Coronal and sagittal reformatted images were also reviewed. FINDINGS: Brain: Extra-axial spaces: No abnormal extra-axial fluid collections. Basal cisterns are patent. Ventricular system: Appear dilated in proportion to the degree of cerebral atrophy. Cerebral parenchyma: No increased attenuation to suggest acute intraparenchymal hemorrhage. The gra y-white matter interface appears maintained. Moderate generalized brain atrophy. Scattered hypoatte nuating areas are seen within the cerebral white matter, nonspecific but most often seen with chronic microvascular ischemic changes; moderate in degree. More focal remote infarct right frontal lobe. Cerebellum: No acute abnormality. Mass effect: No evidence of mass effect or midline shift. Intracranial vasculature: Unremarkable Soft tissues: Nothing acute. Visualized orbits: Orbital contents appear grossly intact. Calvarium/osseous structures: No evidence of calvarial fracture. Remote high right frontal parietal c raniotomy changes. Paranasal sinuses and mastoid air cells: Paranasal sinuses show no significant fluid accumulation. Bi lateral post-mastoidectomy changes and other findings, as detailed on the CT IAC report. MRI is more sensitive for detecting acute processes such as infarct, and may be considered if clinica lly warranted. Cervical spine: Fracture: None seen. Developmentally incomplete fusion of the posterior arch of C1 noted. Osseous structures, spinal canal/neural foramina: Craniocervical junction is intact. Mild degenerativ e changes of the atlantooccipital joints and anterior C1-C2 articulation. Lateral mass alignment is p reserved. Otherwise there is generally mild degenerative disc changes throughout the cervical spine w ithout significant canal or foraminal stenosis. Vertebral alignment: No traumatic malalignment. Straightening mild reversal of the normal cervical lo rdosis, can be seen with degenerative changes, pain, positioning, muscular spasm. Neck soft tissues: No acute finding.. There is patent. Consultations in the bilateral cervical caroti d arteries. Other: Lung apices show no acute infiltrate or pneumothorax. Partially seen sternal wires. IMPRESSION: CT head: 1. No CT evidence of an acute intracranial abnormality. 2. Atrophy and chronic microvascular ischemic white matter changes. CT cervical spine: 1. No evidence of acute cervical spine fracture or traumatic malalignment. 2. Mild cervical spondylosis. 3. Straightening and mild reversal of the normal cervical lordosis, can be seen with degenerative clarisse nges, pain, positioning, muscular spasm.
[2023-12-04 23:39] VITALS: BP 148/80; PULSE 82; TEMP 98
== END 2023-12-04 23:15 | disposition home or self-care (01) ==
LOC: EC 19:50
DX: S09.90XA Unspecified injury of head, initial encounter (principal); Z87.891 Personal history of nicotine dependence; Z88.6 Allergy status to analgesic agent; Z88.8 Allergy status to other drugs, medicaments and biological substances; Z88.1 Allergy status to other antibiotic agents; W01.0XXA Fall on same level from slipping, tripping and stumbling without subsequent striking against object, initial encounter; Y92.000 Kitchen of unspecified non-institutional (private) residence as the place of occurrence of the external cause
CPT/HCPCS: 70450; 72125; 99284

== ENCOUNTER → 2024-02-23 | Outpatient (CLI) | payer MEDICARE, OTHER ==
--- NOTE | 2024-03-02 21:26 | MM ---
Reason for Exam: Screening (asymptomatic). Last mammogram was performed 1 year(s) and 1 month(s) ago. Patient History: Menarche at age 14. First Full-Term at age 19. Postmenopausal. Other cancer, age 68. Risk Values: Stefani 5 year model risk: 1.3%. NCI Lifetime model risk: 3.5%. Prior Study Comparison: 07/14/2022 Bilateral Diagnostic Mammogram, Unknown. 01/19/2023 Bilateral Screening Mammogram, Unknown. Tissue Density: There are scattered areas of fibroglandular density. Findings: Analyzed By CAD. Chronic nodularity on the right. Benign bilateral vascular calcifications. There is no suspicious group of microcalcifications or new suspicious mass in either breast. Overall Assessment: Benign, BI-RAD 2 Management: Screening Mammogram of both breasts in 1 year. . Patient should continue monthly self-breast exams. A clinical breast exam by your physician is recommended on an annual basis. This exam should not preclude additional follow-up of suspicious palpable abnormalities. Note on Stefani scores and lifetime risk: 1. A Stefani score greater than 3% is considered moderate risk. If this is the case, consider specialist referral to assess eligibility for a risk reducing agent. 2. If overall lifetime risk for the development of breast cancer is 20% or higher, the patient may qualify for future screening with alternating mammogram and breast MRI. Electronically signed and approved by: Pollo Amador M.D. Radiologist
== END | disposition home or self-care (01) ==
LOC: RADMAMWWP 10:25
PROVIDERS: ATTEND Family Medicine
DX: Z12.31 Encounter for screening mammogram for malignant neoplasm of breast (principal); Z78.0 Asymptomatic menopausal state
CPT/HCPCS: 77063; 77067

== ENCOUNTER → 2024-08-01 | Outpatient (CLI) | payer MEDICARE, OTHER ==
--- NOTE | 2024-08-01 15:55 | NM ---
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 Images acquired 6 hours post injection. FINDINGS: No abnormal uptake oral lucent area within the sternum or clavicle. No abnormal uptake is identified within the appendicular or axial skeleton to suggest metastatic dise ase. There is increased uptake within the bilateral shoulder, sternoclavicular, and sacroiliac joints con sistent with degenerative changes. No other photopenic areas or areas of increased activity are ident ified. Physiologic radiotracer activity is demonstrated in the kidneys and bladder. IMPRESSION: 1. Nothing to suggest metastatic disease. [facility], Workstation: [facility], 08/01/2024 3:53 PM
== END | disposition home or self-care (01) ==
LOC: RADNMMAIN 07:26
PROVIDERS: ATTEND Family Medicine
DX: D16.7 Benign neoplasm of ribs, sternum and clavicle (principal)
CPT/HCPCS: 78306; A9503

== ENCOUNTER 2025-03-16 07:58 | Emergency (ER) | payer MEDICARE, OTHER ==
[2025-03-16 08:04] VITALS: RESP 18
--- NOTE | 2025-03-16 08:27 | ED ---
General Adult HPI - General Chief complaint: Dizziness Stated complaint: Dizziness Time Seen by Provider: 03/16/25 08:05 Source: patient, RN notes reviewed Mode of arrival: ambulatory Limitations: no limitations - History of Present Illness Initial comments: Patient is a 74-year-old female present to the emergency department with concern with dizziness. Patient does have chronic vertigo. Patient states it has been bothering her more for the last 3 days. Patient does have history of problems with your ears with previous surgery on each. Last less than 1 year. Patient also does have history of 2 previous brain surgeries 1 to remove fluid, 1 to remove blood. No headache. No confusion. No weakness. Symptoms worsen with head movement. - Related Data Home Medications Medication Instructions Recorded Confirmed Simvastatin [Zocor] 80 mg PO HS 03/21/14 05/03/23 Ergocalciferol [Vitamin D2 1,250 mcg PO MO 10/09/14 05/03/23 (DRISDOL)] Levothyroxine Sodium [Synthroid] 150 mcg PO DAILY 10/09/14 05/03/23 Glimepiride [Amaryl] 1 mg PO DAILY 10/08/15 05/03/23 HYDROcodone/APAP 10-325MG [[place] 1 tab PO Q4H PRN 08/22/18 05/03/23 10-325] Multivitamins, Thera [Multivitamin 1 tab PO DAILY 07/04/21 05/03/23 (formulary)] Ferrous Sulfate [Iron (65 MG 325 mg PO DAILY 12/28/21 05/03/23 Elemental)] levETIRAcetam [Keppra] 750 mg PO BID 12/28/21 05/03/23 Omeprazole [PriLOSEC] 40 mg PO DAILY 12/02/22 05/03/23 Zafirlukast [Accolate] 20 mg PO BID 12/02/22 05/03/23 rOPINIRole HCL [Requip] 2 mg PO HS 12/21/22 05/03/23 Fluticasone Nasal [place] [Flonase 2 spr EA NOSTRIL DAILY 02/02/23 05/03/23 Nasal [place]] Meclizine [Antivert] 25 mg PO DAILY PRN 02/02/23 05/03/23 Melatonin 3 mg PO HS PRN 02/02/23 05/03/23 Sacubitril/Valsartan [Entresto 49 1 tab PO BID@0700,1400 03/06/23 05/03/23 mg-51 mg Tablet] Apixaban [Eliquis] 5 mg PO BID 05/03/23 05/03/23 Azelastine HCl [Astepro] 2 spr NASAL BID PRN 05/03/23 05/03/23 Diphenox-Atrop 2.5-0.025 mg 1 tab PO BID 05/03/23 05/03/23 [Lomotil] Previous Rx's Medication Instructions Recorded Aspirin EC [Ecotrin Low Dose] 81 mg PO DAILY #0 09/13/19 guaiFENesin-Coden 100-10MG/5ML 10 ml PO TID PRN ml 12/25/22 [Robitussin AC] Budesonide [Pulmicort] 0.5 mg INHALATION RT-BID 30 Days 03/08/23 #60 ml Ipratropium-Albuterol Nebulize 3 ml INHALATION RT-QID 30 Days 03/08/23 [Duoneb 0.5 mg-3 mg/3 ml Soln] #120 each Metoprolol Succinate (ER) [Toprol 25 mg PO DAILY 90 Days #90 tab 05/07/23 XL] Meclizine [Antivert] 25 mg PO TID PRN #12 tab 03/16/25 Allergies Allergy/AdvReac Type Severity Reaction Status Date / Time NSAIDS (Non-Steroidal AdvReac Unknown STATES NO Verified 03/16/25 08:04 Anti-Inflamma NSAIDS DUE TO GASTRIC BYPASS allopurinol AdvReac Itching Verified 03/16/25 08:04 cephalexin monohydrate AdvReac Itching Verified 03/16/25 08:04 [From Keflex] ciprofloxacin [From Cipro] AdvReac Itching Verified 03/16/25 08:04 clindamycin AdvReac Itching Verified 03/16/25 08:04 doxycycline AdvReac Itching Verified 03/16/25 08:04 Review of Systems ROS Statement: Those systems with pertinent positive or pertinent negative responses have been documented in the HPI. ROS Other: All systems not noted in ROS Statement are negative. Constitutional: Denies: fever Eyes: Denies: eye pain ENT: Denies: ear pain Respiratory: Denies: dyspnea Cardiovascular: Denies: chest pain Gastrointestinal: Denies: vomiting Genitourinary: Denies: dysuria Musculoskeletal: Denies: back pain Neurological: Reports: as per HPI, vertigo. Denies: headache, weakness 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, hydrocephalus/had brain surgery for this then another surgery d/t "blood at surgical site and they put a tube in there" at [facility], ischemic heart disease, NIDDM, Occasional neuropathy bilateral hands. deaf/chronic otitis media L ear, [place] R ear, chronic low back/neck pain, vertigo, L hand NT R/T hx L wrist fx, RLS, varicosities, possible IBS/colitis/crohn's per pt in the past, uses C-PAP, hypothyroid, sinus allergies, eczema, iron def. anemia with iron infusion, past UTI with sepsis, recent stress test, "slow heart rate" History of Any Multi-Drug Resistant Organisms: None Reported Past Surgical History: Appendectomy, Bariatric Surgery, Bowel Resection, Cholecystectomy, Coronary Bypass/CABG, Heart Catheterization, Hernia Repair, Joint Replacement, Orthopedic Surgery, Tubal Ligation Additional Past Surgical History / Comment(s): Brain surgery at [facility] for hydrocephalus then d/t blood at surgical site/drain placed per patient, 09/29/18 removal R ear ventilation tube, R tympanomastoidectomy, CABG x1 vessel (1992), bilateral shoulder surgery/ rt shoulder rotator cuff, bilateral carpal tunnel releases, L wrist surgery d/t injury, total L knee, total R hip, lap banding, gastric bypass w/ lap band removal 2013, colonoscopy, R colectomy d/t mass, EGD, umbilical hernia repair, pain clinic procedures Past Anesthesia/Blood Transfusion Reactions: Motion Sickness Additional Past Anesthesia/Blood Transfusion Reaction / Comment(s): VERTIGO Past Psychological History: No Psychological Hx Reported Smoking Status: Former smoker Past Alcohol Use History: None Reported Past Drug Use History: None Reported - Past Family History Mother Additional Family Medical History / Comment(s): Pt states her mother never went to the doctor so she does not know of any medical problems. Mother lived to be 87yrs old. Father Additional Family Medical History / Comment(s): Father at the age of 67yrs, pt does not know cause of . Sister(s) Family Medical History: Cancer Additional Family Medical History / Comment(s): LUNG CA General Exam Limitations: no limitations General appearance: alert, in no apparent distress Head exam: Present: normocephalic Eye exam: Present: normal appearance, PERRL, EOMI. Absent: nystagmus ENT exam: Present: normal oropharynx, TM's normal bilaterally (Except for appearance of left TM tube. This is discussed with patient and advised to follow-up with your ear doctor. Patient states surgery was less than 1 year ago.) Neck exam: Present: normal inspection Respiratory exam: Present: normal lung sounds bilaterally Cardiovascular Exam: Present: regular rate, normal rhythm GI/Abdominal exam: Present: soft. Absent: tenderness Extremities exam: Present: normal inspection Neurological exam: Present: alert, oriented X3, CN II-XII intact. Absent: motor sensory deficit Expanded Neurological exam: Present: protecting the airway Patient oriented to: Present: person, place, time Speech: Present: fluid speech Cranial nerves: EOM's Intact: Normal Motor strength exam: RUE: 5, LUE: 5, RLE: 5, LLE: 5 Eye Response: (4) open spontaneously Motor Response: (6) obeys commands Verbal Response: (5) oriented Psychiatric exam: Present: normal affect, normal mood Skin exam: Present: normal color Course Vital Signs 03/16/25 03/16/25 08:01 08:53 Temperature 97.6 F Pulse Rate 59 L 65 Respiratory 18 18 Rate Blood Pressure 91/63 97/55 O2 Sat by Pulse 94 L 98 Oximetry EKG Findings - EKG Results: EKG: interpreted by ERMD (PVCs present.), sinus rhythm, normal axis, normal QRS, normal ST/T Medical Decision Making - Medical Decision Making Was pt. sent in by a medical professional or institution (, PA, PODIATRIC PHYSICIAN, urgent care, hospital, or intermediate...) When possible be specific @ -No Did you speak to anyone other than the patient for history (EMS, parent, family, police, friend...)? What history was obtained from this source @ -No Did you review nursing and triage notes (agree or disagree)? Why? @ -I reviewed and agree with nursing and triage notes Were old charts reviewed (outside hosp., previous admission, EMS record, old EKG, old radiological studies, urgent care reports/EKG's, intermediate records)? Report findings @ -No old charts were reviewed Differential Diagnosis (chest pain, altered mental status, abdominal pain women, abdominal pain men, vaginal bleeding, weakness, fever, dyspnea, syncope, headache, dizziness, GI bleed, back pain, seizure, CVA, palpatations, mental health, musculoskeletal)? @ -Differential Dizziness: Benign paroxysmal positional Vertigo, Meniere's disease, otitis media, acoustic neuroma, vertebrobasilar insufficiency, cerebellar stroke, encephalitis, hypovolemic, arrhythmia, coronary artery syndrome, anemia, this is not meant to be an all-inclusive list EKG interpreted by me (3pts min.). @ -As above X-rays interpreted by me (1pt min.). @ -None done CT interpreted by me (1pt min.). @ -CT brain without acute abnormality, remote right frontal infarct U/S interpreted by me (1pt. min.). @ -None done What testing was considered but not performed or refused? (CT, X-rays, U/S, labs)? Why? @ -None What meds were considered but not given or refused? Why? @ -None Did you discuss the management of the patient with other professionals (professionals i.e. , PA, PODIATRIC PHYSICIAN, lab, RT, psych nurse, social media sr strategy manager, keyboard action assembler, teacher, school resource officer, piano case maker)? Give summary @ -No Was smoking cessation discussed for >3mins.? @ -No Was critical care preformed (if so, how long)? @ -No Were there social determinants of health that impacted care today? How? (Homelessness, low income, unemployed, alcoholism, drug addiction, transportation, low edu. Level, literacy, decrease access to med. care, shelter, rehab)? @ -No Was there de-escalation of care discussed even if they declined (Discuss DNR or withdrawal of care, Hospice)? DNR status @ -No What co-morbidities impacted this encounter? (DM, HTN, Smoking, COPD, CAD, Cancer, CVA, ARF, Chemo, Hep., AIDS, mental health diagnosis, sleep apnea, morbid obesity)? @ -History of vertigo Was patient admitted / discharged? Hospital course, mention meds given and r oute, prescriptions, significant lab abnormalities, going to OR and other pertinent info. @ -Patient presents with vertigo with history of vertigo. Evaluation otherwise unremarkable. Patient reevaluated and feeling much better. Blood pressure 97 systolic. Patient is updated regarding this as well as need for close follow-up with her doctor for this. Patient states she does have an appointment next week. Patient advised to check her blood pressure daily and to hold her blood pressure medication if systolic blood pressure is less than 100. Patient demonstrates understanding. Undiagnosed new problem with uncertain prognosis? @ -No Drug Therapy requiring intensive monitoring for toxicity (Heparin, Nitro, Insulin, Cardizem)? @ -No Were any procedures done? @ -No Diagnosis/symptom? @ -Vertigo Acute, or Chronic, or Acute on Chronic? @ -Acute Uncomplicated (without systemic symptoms) or Complicated (systemic symptoms)? @ -Default Side effects of treatment? @ -No Exacerbation, Progression, or Severe Exacerbation? @ -No Poses a threat to life or bodily function? How? (Chest pain, [place], DC, pneumonia, PE, COPD, DKA, ARF, appy, cholecystitis, CVA, Diverticulitis, Homicidal, Suic idal, threat to staff... and all critical care pts) @ -No - Lab Data Result diagrams: 03/16/25 08:24 03/16/25 08:25 Lab Results 03/16/25 03/16/25 Range/Units 08:24 08:25 WBC 6.51 (4.50-10.00) 10*3/uL RBC 3.47 L (4.10-5.20) 10*6/uL Hgb 12.0 (12.0-15.0) g/dL Hct 35.5 L (37.2-46.3) % MCV 102.3 H (80.0-97.0) fL MCH 34.6 H (27.0-32.0) pg MCHC 33.8 (32.0-37.0) g/dL Plt Count 209 (140-440) 10*3/uL MPV 10.4 (9.5-12.2) fL Immature Gran % (Auto) 0.2 % Neutrophils % 45.4 % Lymphocytes % 42.4 % Monocytes % 10.0 % Eosinophils % 1.7 % Basophils % 0.3 % Immature Gran # 0.01 (0.00-0.04) 10*3/uL Neutrophils # 2.96 (1.80-7.70) 10*3/uL Lymphocytes # 2.76 (0.90-5.00) 10*3/uL Monocytes # 0.65 (0.20-1.00) 10*3/uL Eosinophils # 0.11 (0.04-0.35) 10*3/uL Basophils # 0.02 (0.00-0.10) 10*3/uL Sodium 140 (137-145) mmol/L Potassium 4.1 (3.5-5.1) mmol/L Chloride 110 H (98-107) mmol/L Carbon Dioxide 20 L (22-30) mmol/L Anion Gap 10 mmol/L BUN 17 (7-17) mg/dL Creatinine 0.78 (0.52-1.04) mg/dL Est GFR (CKD-EPI)AfAm 88 (>60 ml/min/1.73 sqM) Est GFR (CKD-EPI)NonAf 77 (>60 ml/min/1.73 sqM) Glucose 127 H (74-99) mg/dL Calcium 9.0 (8.4-10.2) mg/dL Total Bilirubin 0.7 (0.2-1.3) mg/dL AST 33 (14-36) U/L ALT 15 (4-34) U/L Alkaline Phosphatase 41 (38-126) U/L Total Protein 5.2 L (6.3-8.2) g/dL Albumin 3.0 L (3.5-5.0) g/dL Disposition Clinical Impression: Vertigo Disposition: HOME SELF-CARE Condition: Stable Instructions (If sedation given, give patient instructions): Dizziness (ED) Additional Instructions: Prescription sent to pharmacy. Please do follow-up with your primary care physician in the next couple of days for recheck. Hold your blood pressure medicine if systolic blood pressures less than 100. Discussed blood pressure medication with your primary care physician. Return for increased dizziness, low blood pressure, weakness or confusion, worsening symptoms or other concerns. Prescriptions: Meclizine [Antivert] 25 mg PO TID PRN #12 tab PRN Reason: dizziness Is patient prescribed a controlled substance at d/c from ED?: No Referrals: Padilla Santiago MD [Primary Care Provider] - 1-2 days Time of Disposition: 09:51
[2025-03-16] MEDS: MECLIZINE 12.5 MG TAB PO STA (08:28)
[2025-03-16 08:38] LABS: Basophils # (A) 0.02 10*3/uL (0.00-0.10); Basophils % (A) 0.3 %; Eosinophils # (A) 0.11 10*3/uL (0.04-0.35); Eosinophils % (A) 1.7 %; HCT 35.5 % (37.2-46.3); HGB 12.0 g/dL (12.0-15.0); Lymphocytes # (A) 2.76 10*3/uL (0.90-5.00); Lymphocytes % (A) 42.4 %; MCH 34.6 pg (27.0-32.0); MCHC 33.8 g/dL (32.0-37.0); MCV 102.3 fL (80.0-97.0); Monocytes # (A) 0.65 10*3/uL (0.20-1.00); Monocytes % (A) 10.0 %; Neutrophils # (A) 2.96 10*3/uL (1.80-7.70); Neutrophils % (A) 45.4 %; Platelet Count 209 10*3/uL (140-440); RBC 3.47 10*6/uL (4.10-5.20); RDW 13.9 % (11.5-14.5); WBC 6.51 10*3/uL (4.50-10.00)
[2025-03-16] MEDS: METOCLOPRAMIDE 5 MG/ML 2 ML VIAL IVP STA (08:51)
--- NOTE | 2025-03-16 09:02 | CT ---
EXAMINATION TYPE: CT brain wo con CT DLP: 1140.8 mGycm, Automated exposure control for dose reduction was used. DATE OF EXAM: 03/16/2025 8:52 AM COMPARISON: CT brain C-spine 12/04/2023, CT IAC 11/17/2023 CLINICAL INDICATION:Female, 74 years old with history of vertigo, Vertigo x 3 days TECHNIQUE: Brain: Multiple axial CT images of the brain were obtained without IV contrast. . Coronal and sagitta l reformats reviewed. FINDINGS: Brain: Extra-axial spaces: No abnormal extra-axial fluid collections. Ventricular system: Dilatation in proportion to cerebral atrophy. Cerebral parenchyma: Mild cerebral atrophy. No acute intraparenchymal hemorrhage or mass effect. The rai-white junction is well differentiated. Scattered hypoattenuating areas are seen within the young ventricular and subcortical white matter. 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 Mass effect: No evidence of midline shift. Intracranial vasculature: Atherosclerotic calcifications of the intracranial vessels. Soft tissues: Normal. Calvarium/osseous structures: No depressed skull fracture. Postsurgical changes from right parietal c raniotomy. Incidental incomplete fusion of the posterior arch of C1. Paranasal sinuses and mastoid air cells: Clear. Bilateral post mastoidectomy changes. Visualized orbits: Bilateral aphakia IMPRESSION: 1. No CT evidence of an acute intracranial abnormality. 2. Atrophy and chronic microvascular ischemic white matter changes. [facility], , 03/16/2025 9:00 AM
[2025-03-16 09:06] LABS: ALT 15 U/L (4-34); African American GFR (CKD) 88 (>60 ml/min/1.73 sqM); Anion Gap 10 mmol/L; Blood Urea Nitrogen 17 mg/dL (7-17); Calcium 9.0 mg/dL (8.4-10.2); Carbon Dioxide 20 mmol/L (22-30); Chloride 110 mmol/L (98-107); Glucose 127 mg/dL (74-99); Non-African American GFR(CKD) 77 (>60 ml/min/1.73 sqM); Sodium 140 mmol/L (137-145)
[2025-03-16 09:16] LABS: AST 33 U/L (14-36); Albumin 3.0 g/dL (3.5-5.0); Alkaline Phosphatase 41 U/L (38-126); Potassium 4.1 mmol/L (3.5-5.1); Total Protein 5.2 g/dL (6.3-8.2)
[2025-03-16 10:00] VITALS: BP 95/55; PULSE 62; TEMP 97.8
== END 2025-03-16 10:00 | disposition home or self-care (01) ==
LOC: EC 07:58
DX: R42 Dizziness and giddiness (principal); Z87.891 Personal history of nicotine dependence; Z88.8 Allergy status to other drugs, medicaments and biological substances; Z88.1 Allergy status to other antibiotic agents; Z88.6 Allergy status to analgesic agent
CPT/HCPCS: 36415; 93005; 80053; 85025; 70450; 99284; 96374; J2765